=== PATIENT | male | born 1955 | race Caucasian/White ===

== ENCOUNTER 2017-06-30 22:42 | Inpatient (IN) | payer MEDICARE, OTHER ==
[2017-06-30 22:42] VITALS: BMI 24.3
[2017-06-30] MEDS ORDERED: Sodium Chloride 0.9% 1,000 ML IV ONE ×2 (23:18→23:44)
[2017-06-30 23:30] LABS: BASO # 0.1 K/uL (0.0-0.2); BASO % 0.8 % (0.0-2.0); EOS # 0.2 K/uL (0.0-0.7); EOS % 1.8 % (0.0-4.0); HEMATOCRIT 39.4 % (35.0-51.0); LYMPH # 1.4 K/uL (1.0-4.3); LYMPH % 15.9 % (20.0-40.0); MEAN CELL VOLUME 91.3 fL (80.0-94.0); MEAN CORPUSCULAR HGB CONC 35.1 g/dL (33.0-37.0); MEAN PLATELET VOLUME 7.5 fL (7.2-11.7); MONO # 0.6 K/uL (0.0-0.8); MONO % 6.3 % (0.0-10.0); NRBC % 0.1 % (0.0-2.0); RED CELL DISTRIBUTION WIDTH 13.2 % (11.5-14.5); WHITE BLOOD COUNT 8.8 K/uL (4.8-10.8)
--- NOTE | 2017-06-30 23:30 | C.PDOC ---
History Of Present Illness patient presents with abdominal pain worsening since monday. No f/c/n/v. Dull throbbing pain. has been taking lots of motrin for his leg pain. Time Seen by Provider: 06/30/17 23:17 Chief Complaint (Nursing): Abdominal Pain History Per: Patient History/Exam Limitations: no limitations Onset/Duration Of Symptoms: Days Current Symptoms Are (Timing): Still Present Context: Other Severity: Moderate Pain Scale Rating Of: 4 Location Of Pain/Discomfort: Diffuse Radiation Of Pain To:: None Quality Of Discomfort: Dull, Aching Associated Symptoms: denies: Fever, Chills, Nausea, Vomiting Exacerbating Factors: None Alleviating Factors: None Last Bowel Movement: Today Recent travel outside of the [place]: No Additional History Per: Family Past Medical History Reviewed: Historical Data, Nursing Documentation, Vital Signs Vital Signs: Last Vital Signs Temp 98.1 F 06/30/17 22:51 Pulse 68 07/01/17 01:56 Resp 20 07/01/17 01:56 BP 138/62 07/01/17 01:56 Pulse Ox 99 07/01/17 02:32 - Medical History PMH: Gastritis, HTN, Hyperlipidemia Surgical History: CABG Denies: Pacemaker Family History: States: No Known Family Hx - Social History Hx Alcohol Use: No Hx Substance Use: No - Immunization History Hx Tetanus Toxoid Vaccination: No Hx Influenza Vaccination: No Hx Pneumococcal Vaccination: No Review Of Systems Constitutional: Negative for: Fever, Chills Eyes: Negative for: Vision Change ENT: Negative for: Throat Pain Cardiovascular: Negative for: Chest Pain Respiratory: Negative for: Shortness of Breath Gastrointestinal: Positive for: Abdominal Pain. Negative for: Nausea, Vomiting Genitourinary: Negative for: Dysuria Musculoskeletal: Negative for: Back Pain Skin: Negative for: Rash Neurological: Negative for: Weakness Psych: Negative for: Anxiety Physical Exam - Physical Exam Appears: Non-toxic Skin: Warm, Dry Head: Normacephalic Eye(s): bilateral: Normal Inspection Oral Mucosa: Moist Neck: Supple Chest: Symmetrical Cardiovascular: Rhythm Regular Respiratory: No Rales, No Rhonchi, No Wheezing Gastrointestinal/Abdominal: Soft, Tenderness (diffuse), Organomegaly (liver 7 cm bcm), Distention, No Guarding, No Rebound Back: No CVA Tenderness Extremity: Normal ROM Extremity: Bilateral: Atraumatic, Normal Color And Temperature, Normal ROM Pulses: Left Dorsalis Pedis: Normal, Right Dorsalis Pedis: Normal Neurological/Psych: Oriented x3, Normal Speech, Normal Cognition Gait: Steady ED Course And Treatment - Laboratory Results Result Diagrams: 06/30/17 23:26 06/30/17 23:26 O2 Sat by Pulse Oximetry: 99 Pulse Ox Interpretation: Normal Disposition Discussed With Dr.: Ko Mccartney Comment: accepted the pt on his service and took over the care at 2:30 AM Doctor Will See Patient In The: Hospital Counseled Patient/Family Regarding: Studies Performed, Diagnosis - Disposition Disposition: HOSPITALIZED Disposition Time: 23:29 Condition: GUARDED Forms: [employer] (Upper Sorbian) - Clinical Impression Clinical Impression: Abdominal pain, Hyponatremia, Metastatic cancer to liver, Hepatomegaly Decision To Admit - Pt Status Changed To: Hospital Disposition Of: Inpatient - Admit Certification Admit to Inpatient:: After my assessment, the patient will require hospitalization for at least two midnights. This is because of the severity of symptoms shown, intensity of services needed, and/or the medical risk in this patient being treated as an outpatient. - InPatient: Physician Admission Certification:: After my assessment, the patient will require hospitalization for at least two midnights. This is because of the severity of symptoms shown, intensity of services needed, and/or the medical risk in this patient being treated as an outpatient. - . Bed Request Type: Regular Admitting Physician: Ko Mccartney Patient Diagnosis: Abdominal pain, Hyponatremia, Metastatic cancer to liver, Hepatomegaly
[2017-06-30 23:33] LABS: RBC URINE 11 /hpf (0-3); URINE BACTERIA RARE (<OCC); URINE BILIRUBIN NEGATIVE (NEGATIVE); URINE BLOOD 1+ (NEGATIVE); URINE COLOR Yellow (YELLOW); URINE GLUCOSE (UA) NORMAL (Normal); URINE KETONE NEGATIVE (NEGATIVE); URINE LEUKOCYTE ESTERASE NEG Leu/uL (Negative); URINE PROTEIN NEGATIVE (NEGATIVE); URINE UROBILINOGEN NORMAL mg/dL (0.2-1.0); WBC URINE 1 /hpf (0-5)
[2017-06-30] MEDS ORDERED: Sodium Chloride 0.9% 1,000 ML ONE (23:34)
[2017-06-30 23:38] LABS: CHLORIDE 84 mmol/L (98-107); POTASSIUM 4.8 mmol/L (3.6-5.2)
[2017-06-30 23:40] LABS: BILIRUBIN,TOTAL 1.2 mg/dL (0.2-1.3); CARBON DIOXIDE 21 mmol/L (22-30); GFR AFRICAN-AMERICAN > 60
[2017-06-30 23:41] LABS: ALB/GLOB RATIO 1.3 (1.0-2.1); ALKALINE PHOSPHATASE 447 U/L (38-126); ALT/SGPT 99 U/L (21-72); AST/SGOT 156 U/L (17-59); BLOOD UREA NITROGEN 11 mg/dL (9-20); CALCIUM 9.3 mg/dl (8.6-10.4); GLUCOSE,RANDOM 96 mg/dL (75-110); TOTAL PROTEIN 7.7 g/dL (6.3-8.3)
[2017-06-30 23:43] LABS: INR 1.1; SODIUM 118 mmol/L (132-148)
[2017-07-01] MEDS ORDERED: Iodixanol 320 MG/ML 100 ML BOTTLE IV ONE (01:15)
--- NOTE | 2017-07-01 02:11 | CT ---
EXAM: CT Abdomen and Pelvis With Intravenous Contrast CLINICAL HISTORY: 62 years old, male; Pain; Abdominal pain; Prior surgery; Surgery type: Cabg; Additional info: Abd pain, elevated lipase TECHNIQUE: Axial computed tomography images of the abdomen and pelvis with intravenous contrast. All CT scans at this facility use one or more dose reduction techniques, viz.: automated exposure control; ma/kV adjustment per patient size (including targeted exams where dose is matched to indication; i.e. head); or iterative reconstruction technique. Coronal and sagittal reformatted images were created and reviewed. CONTRAST: 100 mL of administered intravenously. COMPARISON: No relevant prior studies available. FINDINGS: Limitations: Motion artifact - mild. Lower thorax: Borderline cardiomegaly. CABG. Few subcentimeter pulmonary nodules. Dependent atelectasis. Trace bilateral pleural effusions. ABDOMEN: Liver: Innumerable hypodense lesions, indeterminate by CT criteria. Gallbladder and bile ducts: No calcified stones. No ductal dilation. Pancreas: At least two hypodense lesions within tail. No ductal dilation. Spleen: No splenomegaly. Adrenals: No mass. Kidneys and ureters: Small indeterminate exophytic hyperdense/enhancing LEFT renal lesion.versus adjacent splenule. Few too small to characterize lesions within kidneys. No hydronephrosis. Stomach and bowel: No definite mural thickening. No obstruction. Appendix: Normal caliber. No inflammation. PELVIS: Bladder: Unremarkable. Reproductive: Mildly enlarged prostate. ABDOMEN and PELVIS: Intraperitoneal space: Trace free fluid within pelvis. No free air. Bones/joints: Multiple lytic lesions within visualized bones. Degenerative changes of spine. Soft tissues: Tiny LEFT inguinal hernia containing fat. Vasculature: Mild atherosclerotic disease. No aneurysm. Lymph nodes: No pathologically enlarged lymph nodes. IMPRESSION: 1. Findings compatible with hepatic, pancreatic, osseous metastases. 2. Possible kidney lesion, indeterminate. Primary malignancy/metastasis not excluded. 3. Pulmonary nodules, indeterminate. Metastases not excluded. 4. Incidental/non-acute findings are described above.
[2017-07-01] MEDS ORDERED: Sodium Chloride 0.9% 1,000 ML IV ONE ×3 (02:32→12:19)
[2017-07-01] MEDS ORDERED: Sodium Chloride 0.9% 1,000 ML ONE (02:38)
[2017-07-01 11:23] LABS: BASO # 0.1 K/uL (0.0-0.2); BASO % 1.1 % (0.0-2.0); EOS # 0.2 K/uL (0.0-0.7); EOS % 2.2 % (0.0-4.0); HEMATOCRIT 37.3 % (35.0-51.0); LYMPH # 1.3 K/uL (1.0-4.3); LYMPH % 16.7 % (20.0-40.0); MEAN CELL VOLUME 92.9 fL (80.0-94.0); MEAN CORPUSCULAR HEMOGLOBIN 31.7 pg (27.0-31.0); MEAN CORPUSCULAR HGB CONC 34.2 g/dL (33.0-37.0); MEAN PLATELET VOLUME 7.7 fL (7.2-11.7); MONO # 0.5 K/uL (0.0-0.8); MONO % 6.2 % (0.0-10.0); NRBC % 0.1 % (0.0-2.0); RED CELL DISTRIBUTION WIDTH 13.1 % (11.5-14.5); WHITE BLOOD COUNT 7.7 K/uL (4.8-10.8)
[2017-07-01 11:35] LABS: CHLORIDE 88 mmol/L (98-107); POTASSIUM 4.8 mmol/L (3.6-5.2)
[2017-07-01 11:37] LABS: BILIRUBIN,TOTAL 1.3 mg/dL (0.2-1.3); GFR AFRICAN-AMERICAN > 60
[2017-07-01 11:38] LABS: ALB/GLOB RATIO 1.2 (1.0-2.1); ALKALINE PHOSPHATASE 351 U/L (38-126); ALT/SGPT 82 U/L (21-72); AST/SGOT 121 U/L (17-59); BLOOD UREA NITROGEN 13 mg/dL (9-20); CARBON DIOXIDE 19 mmol/L (22-30); GLUCOSE,RANDOM 77 mg/dL (75-110); TOTAL PROTEIN 6.8 g/dL (6.3-8.3)
[2017-07-01 11:39] LABS: CALCIUM 8.7 mg/dl (8.6-10.4)
[2017-07-01 11:46] LABS: SODIUM 118 mmol/L (132-148)
--- NOTE | 2017-07-01 12:09 | CP.PCM.CON ---
<Radha Mccartney - Last Filed: 07/01/17 11:55> History of Present Illness - History of Present Illness History of Present Illness: PGY4 Initial GI Consult Giovanny Sim is a 62M w/ hx of GERD, HTN, HL,and CAD s/p CABG who presents with RUQ pain. Pt was only faroese speaking and information was obtained via his daughter who was bedside. His daughter states that the pt does not live with her and she hadn't seen her father in quite some time. She noticed that he had lost significant weight over the last few weeks to months. She notes that he had been complaining of RUQ pain and RLE pain for the past few weeks. She states that her father recalled that the pain started gradually and worsened over time. It was initially intermittent and became persisitant over the last few days. She and her sister then brought him to the ER for further eval. She states that prior to this visit, he was in his normal health. He had a colonoscopy 2 years ago and according to her there were no significant findings. She states that he does have a prior hx of heavy ETOH use but quit 5- 10 years ago. Denies any BRBPR, hematemesis, coffee-ground emesis, or melena. PMH: Gastritis, HTN, Hyperlipidemia Surgical History: CABG Denies: Pacemaker Family History: States: No Known Family Hx of colon ca; brother of cirrhosis complications Social Hx: + ETOH use in the past (heavy) but according to the daughter he quite 5 years prior, + smoking, denies any illicit drug ise Endoscopy hx: Colonscopy 2 years and normal according to daughter ROS: 12-point ROS conducted, neg other than the above Past Patient History - Infectious Disease Hx of Infectious Diseases: None - Past Medical History & Family History Past Medical History?: Yes - Past Social History Smoking Status: Light Smoker < 10 Cigarettes Daily - CARDIAC Hx Cardiac Disorders: Yes Hx Hypertension: Yes Hx Pacemaker: No Other/Comment: Hyperlipidemia - PULMONARY Hx Respiratory Disorders: No - NEUROLOGICAL Hx Neurological Disorder: No Hx Paralysis: No - HEENT Hx HEENT Problems: No - RENAL Hx Chronic Kidney Disease: No - ENDOCRINE/METABOLIC Hx Endocrine Disorders: No - HEMATOLOGICAL/ONCOLOGICAL Hx Blood Disorders: No Hx Blood Transfusions: No - INTEGUMENTARY Hx Dermatological Problems: No - MUSCULOSKELETAL/RHEUMATOLOGICAL Hx Falls: No - GASTROINTESTINAL Hx Gastrointestinal Disorders: Yes Hx Gastritis: Yes - GENITOURINARY/GYNECOLOGICAL Hx Genitourinary Disorders: No - PSYCHIATRIC Hx Substance Use: No - SURGICAL HISTORY Hx Surgeries: Yes Hx Coronary Artery Bypass Graft: Yes - ANESTHESIA Hx Anesthesia: Yes Hx Anesthesia Reactions: No Hx Malignant Hyperthermia: No Has any member of the family had a problem w/ anesthesia?: No Meds Allergies/Adverse Reactions: Allergies Allergy/AdvReac Type Severity Reaction Status Date / Time No Known Allergies Allergy Verified 06/30/17 22:50 - Medications Medications: Current Medications Aspirin (Ecotrin) 81 mg PO DAILY [facility] Last Admin: 07/01/17 10:43 Dose: 81 mg Clopidogrel Bisulfate (Plavix) 75 mg PO DAILY [facility] Last Admin: 07/01/17 10:43 Dose: 75 mg Famotidine (Pepcid) 20 mg PO DAILY [facility] Last Admin: 07/01/17 10:43 Dose: 20 mg Gemfibrozil (Lopid) 600 mg PO BID [facility] Last Admin: 07/01/17 10:43 Dose: 600 mg Heparin Sodium (Porcine) (Heparin) 5,000 units SC Q8 [facility] Hydromorphone HCl (Dilaudid) 1 mg IVP Q4H PRN PRN Reason: Pain, severe (8-10) Last Admin: 07/01/17 11:44 Dose: 1 mg Lisinopril (Zestril) 2.5 mg PO DAILY [facility] Last Admin: 07/01/17 10:43 Dose: 2.5 mg Metoprolol Tartrate (Lopressor) 25 mg PO BID [facility] Last Admin: 07/01/17 10:43 Dose: 25 mg Pneumococcal Polyvalent Vaccine (Pneumovax 23 Vaccine) 0.5 ml IM .ONCE ONE Stop: 07/03/17 10:01 Rosuvastatin Calcium (Crestor) 10 mg PO [facility] Physical Exam - Constitutional Appears: Well, No Acute Distress - Head Exam Head Exam: ATRAUMATIC, NORMOCEPHALIC - Eye Exam Eye Exam: Normal appearance - ENT Exam ENT Exam: Mucous Membranes Moist - Respiratory Exam Respiratory Exam: Clear to Auscultation Bilateral, NORMAL BREATHING PATTERN. absent: Prolonged Expiratory Phase, Rales, Rhonchi, Wheezes, Respiratory Distress - GI/Abdominal Exam GI & Abdominal Exam: Normal Bowel Sounds, Soft, Tenderness (RUQ). absent: Mass , Organomegaly, Rebound, Rigid - Extremities Exam Extremities exam: Negative for: joint swelling, pedal edema - Neurological Exam Neurological exam: Alert, Oriented x3 - Psychiatric Exam Psychiatric exam: Normal Affect, Normal Mood - Skin Skin Exam: Dry, Intact, Normal Color, Warm Results - Vital Signs Recent Vital Signs: Last Vital Signs Temp 98.7 F 07/01/17 03:47 Pulse 87 07/01/17 03:47 Resp 18 07/01/17 03:59 BP 128/67 07/01/17 10:43 Pulse Ox 99 07/01/17 03:47 - Labs Result Diagrams: 07/01/17 11:13 07/01/17 11:22 Labs: Laboratory Results - last 24 hr 06/30/17 06/30/17 06/30/17 23:26 23:26 23:26 WBC 8.8 RBC 4.32 L Hgb 13.8 Hct 39.4 MCV 91.3 MCH 32.0 H MCHC 35.1 RDW 13.2 Plt Count 291 MPV 7.5 Neut % (Auto) 75.2 H Lymph % (Auto) 15.9 L [place] % (Auto) 6.3 Eos % (Auto) 1.8 Baso % (Auto) 0.8 Neut # 6.6 Lymph # 1.4 [place] # 0.6 Eos # 0.2 Baso # 0.1 PT 12.8 H INR 1.1 APTT 30 Sodium Potassium Chloride Carbon Dioxide Anion Gap BUN Creatinine Est GFR ( Amer) Est GFR (Non-Af Amer) Random Glucose Calcium Total Bilirubin AST ALT Alkaline Phosphatase Total Protein Albumin Globulin Albumin/Globulin Ratio Lipase Urine Color Yellow Urine Clarity Clear Urine pH 8.0 Ur Specific [place] 1.013 Urine Protein Negative Urine Glucose (UA) Normal Urine Ketones Negative Urine Blood 1+ H Urine Nitrate Negative Urine Bilirubin Negative Urine Urobilinogen Normal Ur Leukocyte Esterase Neg Urine WBC (Auto) 1 Urine RBC (Auto) 11 H Urine Bacteria Rare 06/30/17 07/01/17 07/01/17 23:26 11:13 11:22 WBC 7.7 RBC 4.02 L Hgb 12.8 Hct 37.3 MCV 92.9 MCH 31.7 H MCHC 34.2 RDW 13.1 Plt Count 248 MPV 7.7 Neut % (Auto) 73.8 Lymph % (Auto) 16.7 L [place] % (Auto) 6.2 Eos % (Auto) 2.2 Baso % (Auto) 1.1 Neut # 5.7 Lymph # 1.3 [place] # 0.5 Eos # 0.2 Baso # 0.1 PT INR APTT Sodium 118 L* 118 L* Potassium 4.8 4.8 Chloride 84 L 88 L Carbon Dioxide 21 L 19 L Anion Gap 18 16 BUN 11 13 Creatinine 0.6 L 0.6 L Est GFR ( Amer) > 60 > 60 Est GFR (Non-Af Amer) > 60 > 60 Random Glucose 96 77 Calcium 9.3 8.7 Total Bilirubin 1.2 1.3 AST 156 H 121 H D ALT 99 H 82 H Alkaline Phosphatase 447 H 351 H D Total Protein 7.7 6.8 Albumin 4.4 3.7 Globulin 3.4 3.0 Albumin/Globulin Ratio 1.3 1.2 Lipase 1250 H Urine Color Urine Clarity Urine pH Ur Specific [place] Urine Protein Urine Glucose (UA) Urine Ketones Urine Blood Urine Nitrate Urine Bilirubin Urine Urobilinogen Ur Leukocyte Esterase Urine WBC (Auto) Urine RBC (Auto) Urine Bacteria Assessment & Plan - Assessment and Plan (Free Text) Assessment: Giovanny Sim is a 62M with hx of CAD, HTN, HL, and GERD who presents to the ED with complaints of RUQ pain. CT abd revealed multiple hepatic lesions, pancreatic lesions, bone mets, lung lesions, etiology is probably malignant; cannot differentiate between metastatic (more likely) from unknown source ( colon vs pancreas vs lung) vs primary Multiple liver lesions/masses etiology probably malignancy, DDx mets from unknown primary ca vs primary liver ca Pancreatic lesions/masses, etiology probably malignancy Wide spread Mets including bone and lung GERD hx of ETOH use Plan: -CT abd reviewed by Dr. Lamb, confirmed multiple mets throughout the liver and pancreas -recommend Hem/onc consult -Recommend IR guided biospy for pathology -will do Hep panel, autoimmune w/u -diet as tolerate -pain management as per primary team -poor prognosis -colonscopy was done 2 years ago, will need report to confirm results -DVT px -GI px D/W Dr. Lamb <Zane Lamb - Last Filed: 07/01/17 12:34> Meds - Medications Medications: Current Medications Aspirin (Ecotrin) 81 mg PO DAILY [facility] Last Admin: 07/01/17 10:43 Dose: 81 mg Clopidogrel Bisulfate (Plavix) 75 mg PO DAILY [facility] Last Admin: 07/01/17 10:43 Dose: 75 mg Famotidine (Pepcid) 20 mg PO DAILY [facility] Last Admin: 07/01/17 10:43 Dose: 20 mg Gemfibrozil (Lopid) 600 mg PO BID [facility] Last Admin: 07/01/17 10:43 Dose: 600 mg Heparin Sodium (Porcine) (Heparin) 5,000 units SC Q8 [facility] Hydromorphone HCl (Dilaudid) 1 mg IVP Q4H PRN PRN Reason: Pain, severe (8-10) Last Admin: 07/01/17 11:44 Dose: 1 mg Sodium Chloride (Sodium Chloride 0.9%) 1,000 mls @ 1,000 mls/hr IV .Q1H ONE Stop: 07/01/17 13:17 Sodium Chloride (Sodium Chloride 0.9%) 1,000 mls @ 1,000 mls/hr IV .Q1H ONE Stop: 07/01/17 13:18 Lisinopril (Zestril) 2.5 mg PO DAILY [facility] Last Admin: 07/01/17 10:43 Dose: 2.5 mg Metoprolol Tartrate (Lopressor) 25 mg PO BID [facility] Last Admin: 07/01/17 10:43 Dose: 25 mg Pneumococcal Polyvalent Vaccine (Pneumovax 23 Vaccine) 0.5 ml IM .ONCE ONE Stop: 07/03/17 10:01 Rosuvastatin Calcium (Crestor) 10 mg PO [facility] Results - Vital Signs Recent Vital Signs: Last Vital Signs Temp 98.7 F 07/01/17 03:47 Pulse 87 07/01/17 03:47 Resp 18 07/01/17 03:59 BP 128/67 07/01/17 10:43 Pulse Ox 99 07/01/17 03:47 - Labs Result Diagrams: 07/01/17 11:13 07/01/17 11:22 Labs: Laboratory Results - last 24 hr 06/30/17 06/30/17 06/30/17 23:26 23:26 23:26 WBC 8.8 RBC 4.32 L Hgb 13.8 Hct 39.4 MCV 91.3 MCH 32.0 H MCHC 35.1 RDW 13.2 Plt Count 291 MPV 7.5 Neut % (Auto) 75.2 H Lymph % (Auto) 15.9 L [place] % (Auto) 6.3 Eos % (Auto) 1.8 Baso % (Auto) 0.8 Neut # 6.6 Lymph # 1.4 [place] # 0.6 Eos # 0.2 Baso # 0.1 PT 12.8 H INR 1.1 APTT 30 Sodium Potassium Chloride Carbon Dioxide Anion Gap BUN Creatinine Est GFR ( Amer) Est GFR (Non-Af Amer) Random Glucose Calcium Total Bilirubin AST ALT Alkaline Phosphatase Total Protein Albumin Globulin Albumin/Globulin Ratio Lipase Urine Color Yellow Urine Clarity Clear Urine pH 8.0 Ur Specific [place] 1.013 Urine Protein Negative Urine Glucose (UA) Normal Urine Ketones Negative Urine Blood 1+ H Urine Nitrate Negative Urine Bilirubin Negative Urine Urobilinogen Normal Ur Leukocyte Esterase Neg Urine WBC (Auto) 1 Urine RBC (Auto) 11 H Urine Bacteria Rare 06/30/17 07/01/17 07/01/17 23:26 11:13 11:22 WBC 7.7 RBC 4.02 L Hgb 12.8 Hct 37.3 MCV 92.9 MCH 31.7 H MCHC 34.2 RDW 13.1 Plt Count 248 MPV 7.7 Neut % (Auto) 73.8 Lymph % (Auto) 16.7 L [place] % (Auto) 6.2 Eos % (Auto) 2.2 Baso % (Auto) 1.1 Neut # 5.7 Lymph # 1.3 [place] # 0.5 Eos # 0.2 Baso # 0.1 PT INR APTT Sodium 118 L* 118 L* Potassium 4.8 4.8 Chloride 84 L 88 L Carbon Dioxide 21 L 19 L Anion Gap 18 16 BUN 11 13 Creatinine 0.6 L 0.6 L Est GFR ( Amer) > 60 > 60 Est GFR (Non-Af Amer) > 60 > 60 Random Glucose 96 77 Calcium 9.3 8.7 Total Bilirubin 1.2 1.3 AST 156 H 121 H D ALT 99 H 82 H Alkaline Phosphatase 447 H 351 H D Total Protein 7.7 6.8 Albumin 4.4 3.7 Globulin 3.4 3.0 Albumin/Globulin Ratio 1.3 1.2 Lipase 1250 H Urine Color Urine Clarity Urine pH Ur Specific [place] Urine Protein Urine Glucose (UA) Urine Ketones Urine Blood Urine Nitrate Urine Bilirubin Urine Urobilinogen Ur Leukocyte Esterase Urine WBC (Auto) Urine RBC (Auto) Urine Bacteria Attending/Attestation - Attestation I have personally seen and examined this patient.: Yes I have fully participated in the care of the patient.: Yes I have reviewed all pertinent clinical information: Yes Notes (Text): 07/01/17 12:32 62 year old male with h/o CAD s/p CABG who presents with abdominal pain found to have metastatic cancer unknown primary. 1. Liver metastases 2. Pancreatic mass Plan: -metastatic cancer ,unknown primary -possible pancreatic -recommend liver biopsy of multiple lesions -supportive care with pain control -treatment of hyponatremia per primary or renal -workup for chronic liver disease as above -check tumor markers cea, ca 19-9, afp -oncology consult
[2017-07-01] MEDS: Simethicone 80 mg Chewtab PO SCH ×2 (14:04→17:32)
[2017-07-01 15:17] LABS: CA 19-9 481 U/mL (0-37)
--- NOTE | 2017-07-01 18:55 | CP.PCM.HP ---
Past Patient History - Infectious Disease Hx of Infectious Diseases: None - Past Medical History & Family History Past Medical History?: Yes - Past Social History Smoking Status: Light Smoker < 10 Cigarettes Daily - CARDIAC Hx Cardiac Disorders: Yes Hx Hypertension: Yes - PULMONARY Hx Respiratory Disorders: No - NEUROLOGICAL Hx Neurological Disorder: No Hx Paralysis: No - HEENT Hx HEENT Problems: No - RENAL Hx Chronic Kidney Disease: No - ENDOCRINE/METABOLIC Hx Endocrine Disorders: No - HEMATOLOGICAL/ONCOLOGICAL Hx Blood Disorders: No Hx Blood Transfusions: No - INTEGUMENTARY Hx Dermatological Problems: No - MUSCULOSKELETAL/RHEUMATOLOGICAL Hx Arthritis: Yes (BACK/ HIP/KNEE) - GASTROINTESTINAL Hx Gastrointestinal Disorders: Yes Hx Gastritis: Yes - GENITOURINARY/GYNECOLOGICAL Hx Genitourinary Disorders: No - PSYCHIATRIC Hx Substance Use: No - SURGICAL HISTORY Hx Surgeries: Yes Hx Coronary Artery Bypass Graft: Yes - ANESTHESIA Hx Anesthesia: Yes Hx Anesthesia Reactions: No Hx Malignant Hyperthermia: No Has any member of the family had a problem w/ anesthesia?: No Meds Allergies/Adverse Reactions: Allergies Allergy/AdvReac Type Severity Reaction Status Date / Time No Known Allergies Allergy Verified 06/30/17 22:50 Physical Exam - Constitutional Appears: Well - Head Exam Head Exam: ATRAUMATIC, NORMAL INSPECTION, NORMOCEPHALIC - Eye Exam Eye Exam: EOMI, Normal appearance, PERRL Pupil Exam: NORMAL ACCOMODATION, PERRL - ENT Exam ENT Exam: Mucous Membranes Moist, Normal Exam - Neck Exam Neck exam: Positive for: Normal Inspection - Respiratory Exam Respiratory Exam: Decreased Breath Sounds - Cardiovascular Exam Cardiovascular Exam: REGULAR RHYTHM, +S1, +S2 - GI/Abdominal Exam GI & Abdominal Exam: Diminished Bowel Sounds, Soft - Rectal Exam Rectal Exam: Deferred Results - Vital Signs Recent Vital Signs: Last Vital Signs Temp 98.7 F 07/01/17 03:47 Pulse 87 07/01/17 03:47 Resp 18 07/01/17 03:59 BP 108/60 07/01/17 17:32 Pulse Ox 99 07/01/17 03:47 - Labs Result Diagrams: 07/01/17 11:13 07/01/17 11:22 Labs: Laboratory Results - last 24 hr 06/30/17 06/30/17 06/30/17 23:26 23:26 23:26 WBC 8.8 RBC 4.32 L Hgb 13.8 Hct 39.4 MCV 91.3 MCH 32.0 H MCHC 35.1 RDW 13.2 Plt Count 291 MPV 7.5 Neut % (Auto) 75.2 H Lymph % (Auto) 15.9 L [place] % (Auto) 6.3 Eos % (Auto) 1.8 Baso % (Auto) 0.8 Neut # 6.6 Lymph # 1.4 [place] # 0.6 Eos # 0.2 Baso # 0.1 PT 12.8 H INR 1.1 APTT 30 Sodium Potassium Chloride Carbon Dioxide Anion Gap BUN Creatinine Est GFR ( Amer) Est GFR (Non-Af Amer) Random Glucose Calcium Total Bilirubin AST ALT Alkaline Phosphatase Total Protein Albumin Globulin Albumin/Globulin Ratio Lipase Alpha Fetoprotein Carcinoembryonic Ag CA 19-9 Antigen Urine Color Yellow Urine Clarity Clear Urine pH 8.0 Ur Specific [place] 1.013 Urine Protein Negative Urine Glucose (UA) Normal Urine Ketones Negative Urine Blood 1+ H Urine Nitrate Negative Urine Bilirubin Negative Urine Urobilinogen Normal Ur Leukocyte Esterase Neg Urine WBC (Auto) 1 Urine RBC (Auto) 11 H Urine Bacteria Rare IgG Hepatitis A IgM Ab Hep Bs Antigen Hep Bs Antibody Hep B Core IgM Ab Hepatitis C Antibody 06/30/17 07/01/17 07/01/17 23:26 11:13 11:22 WBC 7.7 RBC 4.02 L Hgb 12.8 Hct 37.3 MCV 92.9 MCH 31.7 H MCHC 34.2 RDW 13.1 Plt Count 248 MPV 7.7 Neut % (Auto) 73.8 Lymph % (Auto) 16.7 L [place] % (Auto) 6.2 Eos % (Auto) 2.2 Baso % (Auto) 1.1 Neut # 5.7 Lymph # 1.3 [place] # 0.5 Eos # 0.2 Baso # 0.1 PT INR APTT Sodium 118 L* 118 L* Potassium 4.8 4.8 Chloride 84 L 88 L Carbon Dioxide 21 L 19 L Anion Gap 18 16 BUN 11 13 Creatinine 0.6 L 0.6 L Est GFR ( Amer) > 60 > 60 Est GFR (Non-Af Amer) > 60 > 60 Random Glucose 96 77 Calcium 9.3 8.7 Total Bilirubin 1.2 1.3 AST 156 H 121 H D ALT 99 H 82 H Alkaline Phosphatase 447 H 351 H D Total Protein 7.7 6.8 Albumin 4.4 3.7 Globulin 3.4 3.0 Albumin/Globulin Ratio 1.3 1.2 Lipase 1250 H Alpha Fetoprotein Carcinoembryonic Ag CA 19-9 Antigen Urine Color Urine Clarity Urine pH Ur Specific [place] Urine Protein Urine Glucose (UA) Urine Ketones Urine Blood Urine Nitrate Urine Bilirubin Urine Urobilinogen Ur Leukocyte Esterase Urine WBC (Auto) Urine RBC (Auto) Urine Bacteria IgG Hepatitis A IgM Ab Hep Bs Antigen Hep Bs Antibody Hep B Core IgM Ab Hepatitis C Antibody 07/01/17 07/01/17 07/01/17 14:09 14:09 14:09 WBC RBC Hgb Hct MCV MCH MCHC RDW Plt Count MPV Neut % (Auto) Lymph % (Auto) [place] % (Auto) Eos % (Auto) Baso % (Auto) Neut # Lymph # [place] # Eos # Baso # PT INR APTT Sodium Potassium Chloride Carbon Dioxide Anion Gap BUN Creatinine Est GFR ( Amer) Est GFR (Non-Af Amer) Random Glucose Calcium Total Bilirubin AST ALT Alkaline Phosphatase Total Protein Albumin Globulin Albumin/Globulin Ratio Lipase Alpha Fetoprotein Carcinoembryonic Ag 557.0 H CA 19-9 Antigen 481 H Urine Color Urine Clarity Urine pH Ur Specific [place] Urine Protein Urine Glucose (UA) Urine Ketones Urine Blood Urine Nitrate Urine Bilirubin Urine Urobilinogen Ur Leukocyte Esterase Urine WBC (Auto) Urine RBC (Auto) Urine Bacteria IgG Hepatitis A IgM Ab Negative Hep Bs Antigen Negative Hep Bs Antibody Negative Hep B Core IgM Ab Negative Negative Hepatitis C Antibody Negative 07/01/17 07/01/17 14:09 14:09 WBC RBC Hgb Hct MCV MCH MCHC RDW Plt Count MPV Neut % (Auto) Lymph % (Auto) [place] % (Auto) Eos % (Auto) Baso % (Auto) Neut # Lymph # [place] # Eos # Baso # PT INR APTT Sodium Potassium Chloride Carbon Dioxide Anion Gap BUN Creatinine Est GFR ( Amer) Est GFR (Non-Af Amer) Random Glucose Calcium Total Bilirubin AST ALT Alkaline Phosphatase Total Protein Albumin Globulin Albumin/Globulin Ratio Lipase Alpha Fetoprotein 3.1 Carcinoembryonic Ag CA 19-9 Antigen Urine Color Urine Clarity Urine pH Ur Specific [place] Urine Protein Urine Glucose (UA) Urine Ketones Urine Blood Urine Nitrate Urine Bilirubin Urine Urobilinogen Ur Leukocyte Esterase Urine WBC (Auto) Urine RBC (Auto) Urine Bacteria IgG 786.8 Hepatitis A IgM Ab Hep Bs Antigen Hep Bs Antibody Hep B Core IgM Ab Hepatitis C Antibody
[2017-07-01 20:30] LABS: CHLORIDE 88 mmol/L (98-107); POTASSIUM 4.5 mmol/L (3.6-5.2)
[2017-07-01 20:32] LABS: BILIRUBIN,TOTAL 1.4 mg/dL (0.2-1.3); CARBON DIOXIDE 18 mmol/L (22-30); GFR AFRICAN-AMERICAN > 60
[2017-07-01 20:33] LABS: ALKALINE PHOSPHATASE 386 U/L (38-126); ALT/SGPT 87 U/L (21-72); AST/SGOT 120 U/L (17-59); BLOOD UREA NITROGEN 11 mg/dL (9-20); CALCIUM 9.1 mg/dl (8.6-10.4); GLUCOSE,RANDOM 92 mg/dL (75-110); TOTAL PROTEIN 7.5 g/dL (6.3-8.3)
[2017-07-01 20:43] LABS: SODIUM 117 mmol/L (132-148)
[2017-07-01] MEDS: Tolvaptan 15 MG TAB PO SCH (21:35)
--- NOTE | 2017-07-01 22:14 | CP.PCM.CON ---
History of Present Illness - History of Present Illness History of Present Illness: 62 year old male with a history of HTN, GERD, HL, CAD s/p CABG, admitted with abdominal pain, found to have imaging concerning for metastatic malignancy. The patient reports to increasing abdominal pain for about 10 days. He notes the pain has been gradually worsening and leaving him with a diminished appetite. He does admit to weight loss but is unable to quantify. Imaging revealed pancreatic, lung, liver, and bone lesions. Past medical history: HTN, GERD, HL, CAD s/p CABG. Past surgical history: Denies. Family history: Denies hematologic and oncologic problems Social histoy: smokes 2 cigs daily x 50 years, former alcohol abuse. Allergies: NKA Review of systems: All remaining review of systems including HEENT, cardiovascular, respiratory, gastrointestinal, genitourinary, musculoskeletal, dermatologic, neurologic, and psychiatric are negative unless mentioned in the HPI. Past Patient History - Infectious Disease Hx of Infectious Diseases: None - Past Medical History & Family History Past Medical History?: Yes - Past Social History Smoking Status: Light Smoker < 10 Cigarettes Daily - CARDIAC Hx Cardiac Disorders: Yes Hx Hypertension: Yes - PULMONARY Hx Respiratory Disorders: No - NEUROLOGICAL Hx Neurological Disorder: No Hx Paralysis: No - HEENT Hx HEENT Problems: No - RENAL Hx Chronic Kidney Disease: No - ENDOCRINE/METABOLIC Hx Endocrine Disorders: No - HEMATOLOGICAL/ONCOLOGICAL Hx Blood Disorders: No Hx Blood Transfusions: No - INTEGUMENTARY Hx Dermatological Problems: No - MUSCULOSKELETAL/RHEUMATOLOGICAL Hx Arthritis: Yes (BACK/ HIP/KNEE) - GASTROINTESTINAL Hx Gastrointestinal Disorders: Yes Hx Gastritis: Yes - GENITOURINARY/GYNECOLOGICAL Hx Genitourinary Disorders: No - PSYCHIATRIC Hx Substance Use: No - SURGICAL HISTORY Hx Surgeries: Yes Hx Coronary Artery Bypass Graft: Yes - ANESTHESIA Hx Anesthesia: Yes Hx Anesthesia Reactions: No Hx Malignant Hyperthermia: No Has any member of the family had a problem w/ anesthesia?: No Meds Allergies/Adverse Reactions: Allergies Allergy/AdvReac Type Severity Reaction Status Date / Time No Known Allergies Allergy Verified 06/30/17 22:50 - Medications Medications: Current Medications Famotidine (Pepcid) 20 mg PO DAILY [facility] Last Admin: 07/01/17 10:43 Dose: 20 mg Gemfibrozil (Lopid) 600 mg PO BID [facility] Last Admin: 07/01/17 17:32 Dose: 600 mg Heparin Sodium (Porcine) (Heparin) 5,000 units SC Q8 [facility] Last Admin: 07/01/17 21:34 Dose: 5,000 units Hydromorphone HCl (Dilaudid) 1 mg IVP Q4H PRN PRN Reason: Pain, severe (8-10) Last Admin: 07/01/17 19:50 Dose: 1 mg Lisinopril (Zestril) 2.5 mg PO DAILY [facility] Last Admin: 07/01/17 10:43 Dose: 2.5 mg Metoprolol Tartrate (Lopressor) 25 mg PO BID [facility] Last Admin: 07/01/17 17:32 Dose: 25 mg Pneumococcal Polyvalent Vaccine (Pneumovax 23 Vaccine) 0.5 ml IM .ONCE ONE Stop: 07/03/17 10:01 Rosuvastatin Calcium (Crestor) 10 mg PO [facility] Last Admin: 07/01/17 21:34 Dose: 10 mg Simethicone (Mylicon Chew Tab) 80 mg PO TID [facility] Last Admin: 07/01/17 17:32 Dose: 80 mg Tolvaptan (Samsca) 15 mg PO DAILY [facility] Stop: 07/03/17 21:23 Last Admin: 07/01/17 21:35 Dose: 15 mg Physical Exam - Head Exam Head Exam: ATRAUMATIC - Eye Exam Eye Exam: Normal appearance - ENT Exam ENT Exam: Mucous Membranes Dry - Respiratory Exam Respiratory Exam: NORMAL BREATHING PATTERN - Cardiovascular Exam Cardiovascular Exam: +S1, +S2 - GI/Abdominal Exam GI & Abdominal Exam: Normal Bowel Sounds - Extremities Exam Extremities exam: Positive for: normal inspection - Neurological Exam Neurological exam: Oriented x3 - Psychiatric Exam Psychiatric exam: Normal Affect, Normal Mood - Skin Skin Exam: Warm Results - Vital Signs Recent Vital Signs: Last Vital Signs Temp 98.7 F 07/01/17 03:47 Pulse 87 07/01/17 03:47 Resp 18 07/01/17 03:59 BP 108/60 07/01/17 17:32 Pulse Ox 99 07/01/17 03:47 - Labs Result Diagrams: 07/01/17 11:13 07/01/17 20:04 Labs: Laboratory Results - last 24 hr 06/30/17 06/30/17 06/30/17 23:26 23:26 23:26 WBC 8.8 RBC 4.32 L Hgb 13.8 Hct 39.4 MCV 91.3 MCH 32.0 H MCHC 35.1 RDW 13.2 Plt Count 291 MPV 7.5 Neut % (Auto) 75.2 H Lymph % (Auto) 15.9 L [place] % (Auto) 6.3 Eos % (Auto) 1.8 Baso % (Auto) 0.8 Neut # 6.6 Lymph # 1.4 [place] # 0.6 Eos # 0.2 Baso # 0.1 PT 12.8 H INR 1.1 APTT 30 Sodium Potassium Chloride Carbon Dioxide Anion Gap BUN Creatinine Est GFR ( Amer) Est GFR (Non-Af Amer) Random Glucose Calcium Total Bilirubin AST ALT Alkaline Phosphatase Total Protein Albumin Globulin Albumin/Globulin Ratio Lipase Alpha Fetoprotein Carcinoembryonic Ag CA 19-9 Antigen Urine Color Yellow Urine Clarity Clear Urine pH 8.0 Ur Specific [place] 1.013 Urine Protein Negative Urine Glucose (UA) Normal Urine Ketones Negative Urine Blood 1+ H Urine Nitrate Negative Urine Bilirubin Negative Urine Urobilinogen Normal Ur Leukocyte Esterase Neg Urine WBC (Auto) 1 Urine RBC (Auto) 11 H Urine Bacteria Rare IgG Hepatitis A IgM Ab Hep Bs Antigen Hep Bs Antibody Hep B Core IgM Ab Hepatitis C Antibody 06/30/17 07/01/17 07/01/17 23:26 11:13 11:22 WBC 7.7 RBC 4.02 L Hgb 12.8 Hct 37.3 MCV 92.9 MCH 31.7 H MCHC 34.2 RDW 13.1 Plt Count 248 MPV 7.7 Neut % (Auto) 73.8 Lymph % (Auto) 16.7 L [place] % (Auto) 6.2 Eos % (Auto) 2.2 Baso % (Auto) 1.1 Neut # 5.7 Lymph # 1.3 [place] # 0.5 Eos # 0.2 Baso # 0.1 PT INR APTT Sodium 118 L* 118 L* Potassium 4.8 4.8 Chloride 84 L 88 L Carbon Dioxide 21 L 19 L Anion Gap 18 16 BUN 11 13 Creatinine 0.6 L 0.6 L Est GFR ( Amer) > 60 > 60 Est GFR (Non-Af Amer) > 60 > 60 Random Glucose 96 77 Calcium 9.3 8.7 Total Bilirubin 1.2 1.3 AST 156 H 121 H D ALT 99 H 82 H Alkaline Phosphatase 447 H 351 H D Total Protein 7.7 6.8 Albumin 4.4 3.7 Globulin 3.4 3.0 Albumin/Globulin Ratio 1.3 1.2 Lipase 1250 H Alpha Fetoprotein Carcinoembryonic Ag CA 19-9 Antigen Urine Color Urine Clarity Urine pH Ur Specific [place] Urine Protein Urine Glucose (UA) Urine Ketones Urine Blood Urine Nitrate Urine Bilirubin Urine Urobilinogen Ur Leukocyte Esterase Urine WBC (Auto) Urine RBC (Auto) Urine Bacteria IgG Hepatitis A IgM Ab Hep Bs Antigen Hep Bs Antibody Hep B Core IgM Ab Hepatitis C Antibody 07/01/17 07/01/17 07/01/17 14:09 14:09 14:09 WBC RBC Hgb Hct MCV MCH MCHC RDW Plt Count MPV Neut % (Auto) Lymph % (Auto) [place] % (Auto) Eos % (Auto) Baso % (Auto) Neut # Lymph # [place] # Eos # Baso # PT INR APTT Sodium Potassium Chloride Carbon Dioxide Anion Gap BUN Creatinine Est GFR ( Amer) Est GFR (Non-Af Amer) Random Glucose Calcium Total Bilirubin AST ALT Alkaline Phosphatase Total Protein Albumin Globulin Albumin/Globulin Ratio Lipase Alpha Fetoprotein Carcinoembryonic Ag 557.0 H CA 19-9 Antigen 481 H Urine Color Urine Clarity Urine pH Ur Specific [place] Urine Protein Urine Glucose (UA) Urine Ketones Urine Blood Urine Nitrate Urine Bilirubin Urine Urobilinogen Ur Leukocyte Esterase Urine WBC (Auto) Urine RBC (Auto) Urine Bacteria IgG Hepatitis A IgM Ab Negative Hep Bs Antigen Negative Hep Bs Antibody Negative Hep B Core IgM Ab Negative Negative Hepatitis C Antibody Negative 07/01/17 07/01/17 07/01/17 14:09 14:09 20:04 WBC RBC Hgb Hct MCV MCH MCHC RDW Plt Count MPV Neut % (Auto) Lymph % (Auto) [place] % (Auto) Eos % (Auto) Baso % (Auto) Neut # Lymph # [place] # Eos # Baso # PT INR APTT Sodium 117 L* Potassium 4.5 Chloride 88 L Carbon Dioxide 18 L Anion Gap 16 BUN 11 Creatinine 0.6 L Est GFR ( Amer) > 60 Est GFR (Non-Af Amer) > 60 Random Glucose 92 Calcium 9.1 Total Bilirubin 1.4 H AST 120 H ALT 87 H Alkaline Phosphatase 386 H Total Protein 7.5 Albumin 3.8 Globulin 3.7 Albumin/Globulin Ratio 1.0 Lipase Alpha Fetoprotein 3.1 Carcinoembryonic Ag CA 19-9 Antigen Urine Color Urine Clarity Urine pH Ur Specific [place] Urine Protein Urine Glucose (UA) Urine Ketones Urine Blood Urine Nitrate Urine Bilirubin Urine Urobilinogen Ur Leukocyte Esterase Urine WBC (Auto) Urine RBC (Auto) Urine Bacteria IgG 786.8 Hepatitis A IgM Ab Hep Bs Antigen Hep Bs Antibody Hep B Core IgM Ab Hepatitis C Antibody Assessment & Plan (1) Metastatic cancer to liver Assessment and Plan: recommend percutaneous liver lesion biopsy elevated CA 19-9 and CEA noted will add CT chest Status: Acute (2) Anemia Assessment and Plan: will check ferritin, retic count, b12, folate, FOBT to further characterize Thank you for this interesting consult. Status: Acute
[2017-07-01 23:23] VITALS: RESP 20
[2017-07-02 08:28] LABS: BASO # 0.1 K/uL (0.0-0.2); BASO % 0.9 % (0.0-2.0); EOS # 0.1 K/uL (0.0-0.7); EOS % 1.5 % (0.0-4.0); HEMATOCRIT 37.6 % (35.0-51.0); LYMPH % 15.2 % (20.0-40.0); MEAN CELL VOLUME 91.7 fL (80.0-94.0); MEAN CORPUSCULAR HEMOGLOBIN 32.5 pg (27.0-31.0); MEAN CORPUSCULAR HGB CONC 35.5 g/dL (33.0-37.0); MEAN PLATELET VOLUME 7.5 fL (7.2-11.7); MONO # 0.5 K/uL (0.0-0.8); MONO % 7.7 % (0.0-10.0); RED CELL DISTRIBUTION WIDTH 13.4 % (11.5-14.5); WHITE BLOOD COUNT 6.3 K/uL (4.8-10.8)
[2017-07-02 08:39] LABS: CHLORIDE 99 mmol/L (98-107)
[2017-07-02 08:40] LABS: POTASSIUM 4.3 mmol/L (3.6-5.2); SODIUM 131 mmol/L (132-148)
[2017-07-02 08:42] LABS: ALB/GLOB RATIO 1.1 (1.0-2.1); AST/SGOT 119 U/L (17-59); BILIRUBIN,TOTAL 1.4 mg/dL (0.2-1.3); BLOOD UREA NITROGEN 11 mg/dL (9-20); CARBON DIOXIDE 22 mmol/L (22-30); GFR AFRICAN-AMERICAN > 60; TOTAL PROTEIN 7.7 g/dL (6.3-8.3)
[2017-07-02 08:43] LABS: ALKALINE PHOSPHATASE 430 U/L (38-126); ALT/SGPT 78 U/L (21-72); CALCIUM 9.9 mg/dl (8.6-10.4); GLUCOSE,RANDOM 83 mg/dL (75-110)
[2017-07-02] MEDS ORDERED: Iohexol 300 100 ML IJ ONE (09:36)
[2017-07-02 09:43] LABS: FOLATE 12.9 ng/mL
[2017-07-02] MEDS: Simethicone 80 mg Chewtab PO SCH ×3 (10:34→17:27)
[2017-07-02] MEDS: Tolvaptan 15 MG TAB PO SCH (10:34)
--- NOTE | 2017-07-02 11:46 | CT ---
PROCEDURE: CT Chest with contrast HISTORY: malignancy work up. Cough and spitting up blood. CT of the abdomen and pelvis showed liver, pancreatic and osseous metastasis. COMPARISON: None. TECHNIQUE: Contiguous axial images were obtained through the chest with intravenous contrast enhancement. Sagittal and coronal reconstructions were performed. IV contrast: 100 mL Omnipaque 300 Radiation dose (DLP): 267.78 mGy-cm. This CT exam was performed using one or more of the following dose reduction techniques: Automated exposure control, adjustment of the mA and/or kV according to patient size, and/or use of iterative reconstruction technique. FINDINGS: LUNGS: There is heterogeneous infiltrate and small opacity at the medial aspect of the right lung apex and upper lobe of uncertain etiology and may represent pneumonia. The possibility of neoplasm is less likely. There is adjacent 5 millimeter noncalcified nodule at the right lung apex image 19 series 3. Mild emphysematous changes are noted at the upper lobes and lung apices. Partial atelectasis of both lower lobes due to pleural effusion is noted. MEDIASTINUM: Unremarkable thoracic aorta. No aneurysm or dissection. The heart is mildly enlarged. Main pulmonary artery unremarkable. No vascular congestion. No lymphadenopathy. PLEURA: Small to moderate right and small left pleural effusions are seen. BONES: Multiple lytic bony lesions seen in the thoracic spine consistent with osseous metastasis. There are also lytic bony lesion in the sternum also suggestive of metastasis. The patient status post sternotomy UPPER ABDOMEN: Again seen are multiple mass lesion in the liver consistent with liver metastasis. There is also suspicious for mass lesion at the pancreatic body and tail. The spleen is normal in size. OTHER FINDINGS: None. IMPRESSION: Heterogeneous opacity and infiltrate at the medial aspect of the right lung upper lobe/ right apex may represent a pneumonia. The possibility of primary lung neoplasm is less likely. Adjacent 5 millimeter noncalcified nodule seen at the upper lobe may represent metastasis. Small to moderate right and small left pleural effusions. Cardiomegaly. Diffuse osseous metastasis in the thoracic spine and sternum. Mild upper lobes emphysema.
--- NOTE | 2017-07-02 12:06 | CP.PCM.PN ---
Subjective - Date & Time of Evaluation Date of Evaluation: 07/02/17 Time of Evaluation: 12:04 - Subjective Subjective: RFV: Liver metastases S: No acute events. continues to complain of abdominal pain. tolerating diet. family at bedside. Objective - Vital Signs/Intake and Output Vital Signs (last 24 hours): Temp Pulse Resp BP Pulse Ox 98.4 F 77 20 108/57 L 96 07/01/17 23:20 07/01/17 23:20 07/01/17 23:20 07/02/17 10:34 07/01/17 23:20 Intake and Output: 07/02/17 07/02/17 06:59 18:59 Intake Total 310 Balance 310 - Medications Medications: Current Medications Famotidine (Pepcid) 20 mg PO DAILY [facility] Last Admin: 07/02/17 10:40 Dose: 20 mg Gemfibrozil (Lopid) 600 mg PO BID [facility] Last Admin: 07/02/17 10:34 Dose: 600 mg Heparin Sodium (Porcine) (Heparin) 5,000 units SC Q8 [facility] Last Admin: 07/02/17 05:00 Dose: 5,000 units Hydromorphone HCl (Dilaudid) 1 mg IVP Q4H PRN PRN Reason: Pain, severe (8-10) Last Admin: 07/01/17 19:50 Dose: 1 mg Lisinopril (Zestril) 2.5 mg PO DAILY [facility] Last Admin: 07/02/17 10:34 Dose: 2.5 mg Metoprolol Tartrate (Lopressor) 25 mg PO BID [facility] Last Admin: 07/02/17 10:34 Dose: 25 mg Pneumococcal Polyvalent Vaccine (Pneumovax 23 Vaccine) 0.5 ml IM .ONCE ONE Stop: 07/03/17 10:01 Rosuvastatin Calcium (Crestor) 10 mg PO HS [facility] Last Admin: 07/01/17 21:34 Dose: 10 mg Simethicone (Mylicon Chew Tab) 80 mg PO TID [facility] Last Admin: 07/02/17 10:34 Dose: 80 mg Tolvaptan (Samsca) 15 mg PO DAILY [facility] Stop: 07/03/17 21:23 Last Admin: 07/02/17 10:34 Dose: 15 mg - Labs Labs: 07/02/17 08:05 07/02/17 08:05 PT 12.8 SECONDS (9.7-12.2) H 06/30/17 23:26 INR 1.1 06/30/17 23:26 APTT 30 SECONDS (21-34) 06/30/17 23:26 - Constitutional Appears: Well, No Acute Distress - Head Exam Head Exam: ATRAUMATIC, NORMOCEPHALIC - Eye Exam Eye Exam: absent: Scleral icterus Pupil Exam: PERRL - Respiratory Exam Respiratory Exam: NORMAL BREATHING PATTERN - Cardiovascular Exam Cardiovascular Exam: +S1, +S2 - GI/Abdominal Exam GI & Abdominal Exam: Soft. absent: Tenderness - Neurological Exam Neurological Exam: Alert, Oriented x3 Assessment and Plan - Assessment and Plan (Free Text) Assessment: 62 year old male with h/o CAD s/p CABG who presents with abdominal pain found to have metastatic cancer unknown primary. 1. Liver metastases 2. Pancreatic mass Plan: -metastatic cancer ,unknown primary -possible pancreatic -recommend liver biopsy by IR tomorrow -supportive care with pain control -elevated CEA and [id number] noted -oncology consult appreciated -await biopsy
--- NOTE | 2017-07-02 17:27 | RAD ---
PROCEDURE: Left Hip X-ray Radiographs. HISTORY: pain COMPARISON: None. FINDINGS: BONES: Normal. No fracture. JOINTS: Normal. SOFT TISSUES: Normal. OTHER FINDINGS: None. IMPRESSION: No evidence of acute pathology in the pelvis and left hip
--- NOTE | 2017-07-02 19:35 | CP.PCM.PN ---
Subjective - Date & Time of Evaluation Date of Evaluation: 07/02/17 Time of Evaluation: 08:20 - Subjective Subjective: clinically same Objective - Vital Signs/Intake and Output Vital Signs (last 24 hours): Temp Pulse Resp BP Pulse Ox 98 F 78 20 110/62 97 07/02/17 16:00 07/02/17 16:00 07/02/17 16:00 07/02/17 17:28 07/02/17 16:00 Intake and Output: 07/02/17 07/03/17 18:59 06:59 Intake Total 550 Output Total 0 Balance 550 - Medications Medications: Current Medications Famotidine (Pepcid) 20 mg PO DAILY [facility] Last Admin: 07/02/17 10:40 Dose: 20 mg Gemfibrozil (Lopid) 600 mg PO BID [facility] Last Admin: 07/02/17 17:28 Dose: 600 mg Heparin Sodium (Porcine) (Heparin) 5,000 units SC Q8 [facility] Last Admin: 07/02/17 15:18 Dose: 5,000 units Hydromorphone HCl (Dilaudid) 1 mg IVP Q4H PRN PRN Reason: Pain, severe (8-10) Last Admin: 07/01/17 19:50 Dose: 1 mg Lisinopril (Zestril) 2.5 mg PO DAILY [facility] Last Admin: 07/02/17 10:34 Dose: 2.5 mg Metoprolol Tartrate (Lopressor) 25 mg PO BID [facility] Last Admin: 07/02/17 17:28 Dose: 25 mg Pneumococcal Polyvalent Vaccine (Pneumovax 23 Vaccine) 0.5 ml IM .ONCE ONE Stop: 07/03/17 10:01 Rosuvastatin Calcium (Crestor) 10 mg PO HS [facility] Last Admin: 07/01/17 21:34 Dose: 10 mg Simethicone (Mylicon Chew Tab) 80 mg PO TID [facility] Last Admin: 07/02/17 17:27 Dose: 80 mg - Labs Labs: 07/02/17 08:05 07/02/17 08:05 PT 12.8 SECONDS (9.7-12.2) H 06/30/17 23:26 INR 1.1 06/30/17 23:26 APTT 30 SECONDS (21-34) 06/30/17 23:26 - Constitutional Appears: Well - Head Exam Head Exam: ATRAUMATIC, NORMAL INSPECTION, NORMOCEPHALIC - Eye Exam Eye Exam: EOMI, Normal appearance, PERRL Pupil Exam: NORMAL ACCOMODATION, PERRL - ENT Exam ENT Exam: Mucous Membranes Moist, Normal Exam - Neck Exam Neck Exam: Full ROM, Normal Inspection. absent: Lymphadenopathy - Respiratory Exam Respiratory Exam: Decreased Breath Sounds - Cardiovascular Exam Cardiovascular Exam: REGULAR RHYTHM, +S1, +S2 - GI/Abdominal Exam GI & Abdominal Exam: Soft, Diminished Bowel Sounds - Rectal Exam Rectal Exam: Deferred
--- NOTE | 2017-07-03 07:23 | CP.PCM.PN ---
<Antonietta Alexandra - Last Filed: 07/03/17 10:14> Subjective - Date & Time of Evaluation Date of Evaluation: 07/03/17 Time of Evaluation: 06:35 - Subjective Subjective: GI Fellow PGY4 Progress Note Pt seen and evaluated at bedside, pt reports left groin/hip pain and right sided back pain. Hip Xray reviewed which is negative for any fractures or pathology. Pt denies nausea, vomiting or epigastric abdominal pain. No acute issues overnight. ROS: A 12pt ROS was negative except as above. Objective - Vital Signs/Intake and Output Vital Signs (last 24 hours): Temp Pulse Resp BP Pulse Ox 98.1 F 70 20 133/73 98 07/02/17 23:16 07/02/17 23:16 07/02/17 23:16 07/02/17 23:16 07/02/17 23:16 Intake and Output: 07/03/17 07/03/17 06:59 18:59 Intake Total 200 Balance 200 - Medications Medications: Current Medications Famotidine (Pepcid) 20 mg PO DAILY [facility] Last Admin: 07/02/17 10:40 Dose: 20 mg Gemfibrozil (Lopid) 600 mg PO BID [facility] Last Admin: 07/02/17 17:28 Dose: 600 mg Heparin Sodium (Porcine) (Heparin) 5,000 units SC Q8 [facility] Last Admin: 07/03/17 05:14 Dose: 5,000 units Hydromorphone HCl (Dilaudid) 1 mg IVP Q4H PRN PRN Reason: Pain, severe (8-10) Last Admin: 07/01/17 19:50 Dose: 1 mg Lisinopril (Zestril) 2.5 mg PO DAILY [facility] Last Admin: 07/02/17 10:34 Dose: 2.5 mg Metoprolol Tartrate (Lopressor) 25 mg PO BID [facility] Last Admin: 07/02/17 17:28 Dose: 25 mg Pneumococcal Polyvalent Vaccine (Pneumovax 23 Vaccine) 0.5 ml IM .ONCE ONE Stop: 07/03/17 10:01 Rosuvastatin Calcium (Crestor) 10 mg PO HS [facility] Last Admin: 07/02/17 21:22 Dose: 10 mg Simethicone (Mylicon Chew Tab) 80 mg PO TID [facility] Last Admin: 07/02/17 17:27 Dose: 80 mg - Labs Labs: 07/02/17 08:05 07/02/17 08:05 PT 12.8 SECONDS (9.7-12.2) H 06/30/17 23:26 INR 1.1 06/30/17 23:26 APTT 30 SECONDS (21-34) 06/30/17 23:26 - Constitutional Appears: Non-toxic, Cachectic - Head Exam Head Exam: ATRAUMATIC, NORMAL INSPECTION, NORMOCEPHALIC - Eye Exam Eye Exam: EOMI, Normal appearance, PERRL Pupil Exam: PERRL - ENT Exam ENT Exam: Mucous Membranes Moist, Normal Exam - Neck Exam Neck Exam: Full ROM, Normal Inspection - Respiratory Exam Respiratory Exam: Clear to Ausculation Bilateral, NORMAL BREATHING PATTERN - Cardiovascular Exam Cardiovascular Exam: RRR, +S1, +S2 - GI/Abdominal Exam GI & Abdominal Exam: Distended, Soft, Tenderness, Normal Bowel Sounds, Organomegaly - Rectal Exam Rectal Exam: Deferred - Extremities Exam Extremities Exam: Full ROM, Normal Inspection. absent: Pedal Edema - Back Exam Back Exam: NORMAL INSPECTION - Neurological Exam Neurological Exam: Alert, Awake, Oriented x3 - Psychiatric Exam Psychiatric exam: Normal Affect, Normal Mood - Skin Skin Exam: Dry, Intact, Normal Color, Warm Assessment and Plan - Assessment and Plan (Free Text) Assessment: This is a 62M with hx of CAD, HTN, HL, and GERD who presents to the ED with complaints of RUQ pain. CT abd revealed multiple hepatic lesions, pancreatic lesions, bone mets, lung lesions. 1. Liver metastases 2. Pancreatic mass 3. Metastatic disease, unknown source or primary 4. GERD 5. ETOH use 6. Elevated CEA, CA19-9 Plan: -Continue supportive care with pain control, anti-emetics -Plan for IR guided biopsy for pathology of likely metastatic cancer,unknown primary -Elevated CEA and CA19-9 -Hepatitis, autoimmune panel negative -Continue diet as tolerated, keep NPO for possible liver biopsy today -Will continue to follow closely and further recommendations based on liver biopsy/pathology <Vida Coelho MD - Last Filed: 07/03/17 13:18> Objective - Vital Signs/Intake and Output Vital Signs (last 24 hours): Temp Pulse Resp BP Pulse Ox 97.8 F 73 20 130/80 96 07/03/17 07:58 07/03/17 07:58 07/03/17 07:58 07/03/17 09:33 07/03/17 07:58 Intake and Output: 07/03/17 07/03/17 06:59 18:59 Intake Total 200 Balance 200 - Medications Medications: Current Medications Famotidine (Pepcid) 20 mg PO DAILY [facility] Last Admin: 07/03/17 09:33 Dose: 20 mg Gemfibrozil (Lopid) 600 mg PO BID [facility] Last Admin: 07/03/17 09:33 Dose: 600 mg Heparin Sodium (Porcine) (Heparin) 5,000 units SC Q8 [facility] Last Admin: 07/03/17 05:14 Dose: 5,000 units Hydromorphone HCl (Dilaudid) 1 mg IVP Q4H PRN PRN Reason: Pain, severe (8-10) Last Admin: 07/01/17 19:50 Dose: 1 mg Lisinopril (Zestril) 2.5 mg PO DAILY [facility] Last Admin: 07/03/17 09:33 Dose: 2.5 mg Metoprolol Tartrate (Lopressor) 25 mg PO BID [facility] Last Admin: 07/03/17 09:33 Dose: 25 mg Rosuvastatin Calcium (Crestor) 10 mg PO HS [facility] Last Admin: 07/02/17 21:22 Dose: 10 mg Simethicone (Mylicon Chew Tab) 80 mg PO TID [facility] Last Admin: 07/03/17 09:33 Dose: 80 mg - Labs Labs: 07/02/17 08:05 07/02/17 08:05 PT 12.8 SECONDS (9.7-12.2) H 06/30/17 23:26 INR 1.1 06/30/17 23:26 APTT 30 SECONDS (21-34) 06/30/17 23:26 Attending/Attestation - Attestation I have personally seen and examined this patient.: Yes I have fully participated in the care of the patient.: Yes I have reviewed all pertinent clinical information, including history, physical exam and plan: Yes Notes (Text): 07/03/17 13:16 Patient seen with GI fellow on rounds this am. This is a 62 year old male with h /o CAD s/p CABG who presents with abdominal pain found to have metastatic cancer to liver, lung and bones with unknown primary. Likely pancreatic primary. Was scheduled for IR guided liver biopsy today but patient ate breakfast. Discussed with nursing to reschedule biopsy. Will await biopsy results. Last colonoscopy 2 years at [facility] which was normal as per patient. Supportive care
[2017-07-03] MEDS: Simethicone 80 mg Chewtab PO SCH ×3 (09:33→17:27)
[2017-07-03] MEDS ORDERED: Influenza Vaccine 60 mcg/0.5 mL SYR (4YR UP) IM ONE (10:00)
[2017-07-03] MEDS ORDERED: Pneumococcal 23-Valent Vaccine IM ONE (10:00)
--- NOTE | 2017-07-03 22:02 | CP.PCM.PN ---
Subjective - Date & Time of Evaluation Date of Evaluation: 07/03/17 Objective - Vital Signs/Intake and Output Vital Signs (last 24 hours): Temp Pulse Resp BP Pulse Ox 98.1 F 73 20 115/65 97 07/03/17 15:53 07/03/17 15:53 07/03/17 15:53 07/03/17 17:28 07/03/17 15:53 Intake and Output: 07/03/17 07/04/17 18:59 06:59 Intake Total 600 Balance 600 - Medications Medications: Current Medications Famotidine (Pepcid) 20 mg PO DAILY [facility] Last Admin: 07/03/17 09:33 Dose: 20 mg Gemfibrozil (Lopid) 600 mg PO BID [facility] Last Admin: 07/03/17 17:28 Dose: 600 mg Heparin Sodium (Porcine) (Heparin) 5,000 units SC Q8 [facility] Last Admin: 07/03/17 21:21 Dose: Not Given Hydromorphone HCl (Dilaudid) 1 mg IVP Q4H PRN PRN Reason: Pain, severe (8-10) Last Admin: 07/01/17 19:50 Dose: 1 mg Lisinopril (Zestril) 2.5 mg PO DAILY [facility] Last Admin: 07/03/17 09:33 Dose: 2.5 mg Metoprolol Tartrate (Lopressor) 25 mg PO BID [facility] Last Admin: 07/03/17 17:28 Dose: 25 mg Rosuvastatin Calcium (Crestor) 10 mg PO HS [facility] Last Admin: 07/03/17 21:19 Dose: 10 mg Simethicone (Mylicon Chew Tab) 80 mg PO TID [facility] Last Admin: 07/03/17 17:27 Dose: 80 mg - Labs Labs: 07/02/17 08:05 07/02/17 08:05 PT 12.8 SECONDS (9.7-12.2) H 06/30/17 23:26 INR 1.1 06/30/17 23:26 APTT 30 SECONDS (21-34) 06/30/17 23:26
[2017-07-04 06:53] LABS: BASO # 0.1 K/uL (0.0-0.2); BASO % 0.7 % (0.0-2.0); EOS # 0.3 K/uL (0.0-0.7); EOS % 2.9 % (0.0-4.0); HEMATOCRIT 38.3 % (35.0-51.0); LYMPH # 1.8 K/uL (1.0-4.3); LYMPH % 18.2 % (20.0-40.0); MEAN CELL VOLUME 93.1 fL (80.0-94.0); MEAN CORPUSCULAR HEMOGLOBIN 32.5 pg (27.0-31.0); MEAN CORPUSCULAR HGB CONC 34.9 g/dL (33.0-37.0); MEAN PLATELET VOLUME 7.7 fL (7.2-11.7); MONO # 0.7 K/uL (0.0-0.8); MONO % 7.3 % (0.0-10.0); RED CELL DISTRIBUTION WIDTH 13.5 % (11.5-14.5); WHITE BLOOD COUNT 9.9 K/uL (4.8-10.8)
--- NOTE | 2017-07-04 07:14 | CP.PCM.PN ---
<Antonietta Alexandra - Last Filed: 07/04/17 09:03> Subjective - Date & Time of Evaluation Date of Evaluation: 07/04/17 Time of Evaluation: 06:40 - Subjective Subjective: GI Fellow PGY4 Progress Note Pt seen and evaluated at bedside, pt reports feeling better this am with decreased right sided back pain. Pt denies nausea, vomiting or epigastric abdominal pain. No acute issues overnight. Pt NPO for liver biopsy today. ROS: A 12pt ROS was negative except as above. Objective - Vital Signs/Intake and Output Vital Signs (last 24 hours): Temp Pulse Resp BP Pulse Ox 98.3 F 79 20 127/69 97 07/03/17 23:23 07/03/17 23:23 07/03/17 23:23 07/03/17 23:23 07/03/17 23:23 Intake and Output: 07/04/17 07/04/17 06:59 18:59 Intake Total 0 Output Total 300 Balance -300 - Medications Medications: Current Medications Famotidine (Pepcid) 20 mg PO DAILY [facility] Last Admin: 07/03/17 09:33 Dose: 20 mg Gemfibrozil (Lopid) 600 mg PO BID [facility] Last Admin: 07/03/17 17:28 Dose: 600 mg Heparin Sodium (Porcine) (Heparin) 5,000 units SC Q8 [facility] Last Admin: 07/03/17 21:21 Dose: Not Given Hydromorphone HCl (Dilaudid) 1 mg IVP Q4H PRN PRN Reason: Pain, severe (8-10) Last Admin: 07/01/17 19:50 Dose: 1 mg Lisinopril (Zestril) 2.5 mg PO DAILY [facility] Last Admin: 07/03/17 09:33 Dose: 2.5 mg Metoprolol Tartrate (Lopressor) 25 mg PO BID [facility] Last Admin: 07/03/17 17:28 Dose: 25 mg Rosuvastatin Calcium (Crestor) 10 mg PO HS [facility] Last Admin: 07/03/17 21:19 Dose: 10 mg Simethicone (Mylicon Chew Tab) 80 mg PO TID [facility] Last Admin: 07/03/17 17:27 Dose: 80 mg - Labs Labs: 07/04/17 06:43 07/02/17 08:05 PT 12.8 SECONDS (9.7-12.2) H 06/30/17 23:26 INR 1.1 06/30/17 23:26 APTT 30 SECONDS (21-34) 06/30/17 23:26 - Constitutional Appears: No Acute Distress, Cachectic - Head Exam Head Exam: ATRAUMATIC, NORMAL INSPECTION, NORMOCEPHALIC - Eye Exam Eye Exam: EOMI, Normal appearance, PERRL - ENT Exam ENT Exam: Mucous Membranes Moist, Normal Exam - Neck Exam Neck Exam: Full ROM, Normal Inspection - Respiratory Exam Respiratory Exam: Clear to Ausculation Bilateral, NORMAL BREATHING PATTERN - Cardiovascular Exam Cardiovascular Exam: RRR, +S1, +S2 - GI/Abdominal Exam GI & Abdominal Exam: Soft, Tenderness, Normal Bowel Sounds, Organomegaly. absent: Distended, Guarding, Rigid - Rectal Exam Rectal Exam: Deferred - Extremities Exam Extremities Exam: Full ROM, Normal Inspection - Back Exam Back Exam: NORMAL INSPECTION - Neurological Exam Neurological Exam: Alert, Awake, Oriented x3 - Psychiatric Exam Psychiatric exam: Normal Affect, Normal Mood - Skin Skin Exam: Dry, Intact, Normal Color, Warm Assessment and Plan - Assessment and Plan (Free Text) Assessment: This is a 62M with hx of CAD, HTN, HL, and GERD who presents to the ED with complaints of RUQ pain. CT abd revealed multiple hepatic lesions, pancreatic lesions, bone mets, lung lesions. 1. Liver metastases 2. Pancreatic mass 3. Metastatic disease, unknown source or primary 4. GERD 5. ETOH use 6. Elevated CEA, CA19-9 Plan: -Continue supportive care with pain control, anti-emetics -Plan for IR guided biopsy today for pathology of likely metastatic cancer, unknown primary -Elevated CEA and CA19-9 -Hepatitis, autoimmune panel negative -Continue diet as tolerated, keep NPO for possible liver biopsy today -Will continue to follow closely and further recommendations based on liver biopsy/pathology <Thiago Finney - Last Filed: 07/04/17 11:21> Objective - Vital Signs/Intake and Output Vital Signs (last 24 hours): Temp Pulse Resp BP Pulse Ox 98.2 F 86 20 133/82 97 07/04/17 07:29 07/04/17 07:29 07/04/17 07:29 07/04/17 07:29 07/04/17 07:29 Intake and Output: 07/04/17 07/04/17 06:59 18:59 Intake Total 0 Output Total 300 Balance -300 - Medications Medications: Current Medications Famotidine (Pepcid) 20 mg PO DAILY [facility] Last Admin: 07/04/17 09:19 Dose: Not Given Gemfibrozil (Lopid) 600 mg PO BID [facility] Last Admin: 07/04/17 09:19 Dose: Not Given Heparin Sodium (Porcine) (Heparin) 5,000 units SC Q8 [facility] Last Admin: 07/04/17 06:00 Dose: Not Given Hydromorphone HCl (Dilaudid) 1 mg IVP Q4H PRN PRN Reason: Pain, severe (8-10) Last Admin: 07/01/17 19:50 Dose: 1 mg Lisinopril (Zestril) 2.5 mg PO DAILY [facility] Last Admin: 07/04/17 09:19 Dose: Not Given Metoprolol Tartrate (Lopressor) 25 mg PO BID [facility] Last Admin: 07/04/17 09:19 Dose: Not Given Rosuvastatin Calcium (Crestor) 10 mg PO HS [facility] Last Admin: 07/03/17 21:19 Dose: 10 mg Simethicone (Mylicon Chew Tab) 80 mg PO TID [facility] Last Admin: 07/04/17 09:19 Dose: Not Given - Labs Labs: 07/04/17 06:43 07/04/17 06:43 PT 12.8 SECONDS (9.7-12.2) H 06/30/17 23:26 INR 1.1 06/30/17 23:26 APTT 30 SECONDS (21-34) 06/30/17 23:26 Attending/Attestation - Attestation I have personally seen and examined this patient.: Yes I have fully participated in the care of the patient.: Yes I have reviewed all pertinent clinical information, including history, physical exam and plan: Yes Notes (Text): 07/04/17 11:17 I have seen and examined patient with GI fellow. No acute events overnight, he is seen resting in bed comfortably. He denies abdominal pain, nausea, vomiting , fever/chills. Tolerating PO diet without difficulty. CAD HTN RUQ abdominal pain - CT imaging consistent with diffuse metastatic disease ( pancreas, liver, bone), unknown primary origin Elevated tumor markers - Diet as tolerated - CT imaging reviewed by me showing extensive hepatic lesions, plan for IR guided liver biopsy today for further evaluation - Follow up oncology recommendations - Overall prognosis for patient is poor - Pain control - Continue to monitor LFTs, no evidence of obstructive biliary pathology - Will continue to monitor patient clinical course
[2017-07-04 07:23] LABS: CHLORIDE 97 mmol/L (98-107); POTASSIUM 5.4 mmol/L (3.6-5.2); SODIUM 132 mmol/L (132-148)
[2017-07-04 07:25] LABS: GFR AFRICAN-AMERICAN > 60
[2017-07-04 07:26] LABS: ALB/GLOB RATIO 1.2 (1.0-2.1); ALKALINE PHOSPHATASE 504 U/L (38-126); ALT/SGPT 90 U/L (21-72); AST/SGOT 151 U/L (17-59); BILIRUBIN,TOTAL 0.9 mg/dL (0.2-1.3); BLOOD UREA NITROGEN 17 mg/dL (9-20); CALCIUM 10.1 mg/dl (8.6-10.4); CARBON DIOXIDE 23 mmol/L (22-30); GLUCOSE,RANDOM 87 mg/dL (75-110); TOTAL PROTEIN 7.8 g/dL (6.3-8.3)
--- NOTE | 2017-07-04 08:58 | CP.PCM.CON ---
History of Present Illness - History of Present Illness History of Present Illness: Palliative consult Requested by Fidelia GUIDRY Reason; Goals of care discussion Patient is a 62 yo male admitted from home with abdominal pain and legs pain. X 10 days. patient took a lot of Motrin at home for pain. Pain was described as dull and throbbing. Patient admits to appetite and weight loss. The CT abdomen upon admission was significant for hepatic, pancreas and osseous mets. Some lung nodules seen as well. The liver Bx was suggested by Doctor Kathia. PMH: HTN, HDL, Soc. hx: maried, lives at home, ETOH abuse 15 years ago, smokes 2 cigarettes / day Fam Hx: brother from liver [place] Review of Systems - Constitutional Constitutional: Weight Loss - EENT Eyes: absent: As Per HPI, Blind Spots, Blurred Vision, Change in Vision, Decreased Night Vision, Diplopia, Discharge, Dry Eye, Exophthalmos, Floaters, Irritation, Itchy Eyes, Loss of Peripheral Vision, Pain, Photophobia, Requires Corrective Lenses, Sees Flashes, Spots in Vision, Tunnel Vision, Other Visual Disturbances, Loss of Vision, Other Ears: absent: As Per HPI, Decreased Hearing, Ear Discharge, Ear Pain, Tinnitus, Abnormal Hearing, Disequilibrium, Dizziness, Other Nose/Mouth/Throat: absent: As Per HPI, Epistaxis, Nasal Congestion, Nasal Discharge, Nasal Obstruction, Nasal Trauma, Nose Pain, Post Nasal Drip, Sinus Pain, Sinus Pressure, Bleeding Gums, Change in Voice, Dental Pain, Dry Mouth, Dysphagia, Halitosis, Hoarsness, Lip Swelling, Mouth Lesions, Mouth Pain, Odynophagia, Sore Throat, Throat Swelling, Tongue Swelling, Facial Pain, Neck Pain, Neck Mass, Other - Cardiovascular Cardiovascular: Pedal Edema - Respiratory Respiratory: Dyspnea on Exertion - Gastrointestinal Gastrointestinal: Bloating - Genitourinary Genitourinary: absent: As Per HPI, Change in Urinary Stream, Difficulty Urinating, Dysuria, Flank Pain, Hematuria, Pyuria, Nocturia, Urinary Incontinence, Urinary Frequency, Urinary Hesitance, Urinary Urgency, Voiding Freq/Small Amts, Freq UTI, Hx Renal/Bladder Calculi, Hx /Renal Surgery, Bladder Distension, Other - Musculoskeletal Additional comments: LEs pain - Integumentary Integumentary: Change in Pigmentation - Neurological Neurological: Weakness - Psychiatric Psychiatric: Anxiety - Endocrine Endocrine: Fatigue - Hematologic/Lymphatic Hematologic: absent: As Per HPI, Easy Bleeding, Easy Bruising, Lymphadenopathy, Other Past Patient History - Infectious Disease Hx of Infectious Diseases: None - Past Medical History & Family History Past Medical History?: Yes - Past Social History Smoking Status: Light Smoker < 10 Cigarettes Daily - CARDIAC Hx Cardiac Disorders: Yes Hx Hypertension: Yes - PULMONARY Hx Respiratory Disorders: No - NEUROLOGICAL Hx Neurological Disorder: No Hx Paralysis: No - HEENT Hx HEENT Problems: No - RENAL Hx Chronic Kidney Disease: No - ENDOCRINE/METABOLIC Hx Endocrine Disorders: No - HEMATOLOGICAL/ONCOLOGICAL Hx Blood Disorders: No Hx Blood Transfusions: No - INTEGUMENTARY Hx Dermatological Problems: No - MUSCULOSKELETAL/RHEUMATOLOGICAL Hx Arthritis: Yes (BACK/ HIP/KNEE) - GASTROINTESTINAL Hx Gastrointestinal Disorders: Yes Hx Gastritis: Yes - GENITOURINARY/GYNECOLOGICAL Hx Genitourinary Disorders: No - PSYCHIATRIC Hx Substance Use: No - SURGICAL HISTORY Hx Surgeries: Yes Hx Coronary Artery Bypass Graft: Yes - ANESTHESIA Hx Anesthesia: Yes Hx Anesthesia Reactions: No Hx Malignant Hyperthermia: No Has any member of the family had a problem w/ anesthesia?: No Meds Allergies/Adverse Reactions: Allergies Allergy/AdvReac Type Severity Reaction Status Date / Time No Known Allergies Allergy Verified 06/30/17 22:50 - Medications Medications: Current Medications Famotidine (Pepcid) 20 mg PO DAILY [facility] Last Admin: 07/03/17 09:33 Dose: 20 mg Gemfibrozil (Lopid) 600 mg PO BID [facility] Last Admin: 07/03/17 17:28 Dose: 600 mg Heparin Sodium (Porcine) (Heparin) 5,000 units SC Q8 [facility] Last Admin: 07/04/17 06:00 Dose: Not Given Hydromorphone HCl (Dilaudid) 1 mg IVP Q4H PRN PRN Reason: Pain, severe (8-10) Last Admin: 07/01/17 19:50 Dose: 1 mg Lisinopril (Zestril) 2.5 mg PO DAILY [facility] Last Admin: 07/03/17 09:33 Dose: 2.5 mg Metoprolol Tartrate (Lopressor) 25 mg PO BID [facility] Last Admin: 07/03/17 17:28 Dose: 25 mg Rosuvastatin Calcium (Crestor) 10 mg PO HS [facility] Last Admin: 07/03/17 21:19 Dose: 10 mg Simethicone (Mylicon Chew Tab) 80 mg PO TID [facility] Last Admin: 07/03/17 17:27 Dose: 80 mg Physical Exam - Constitutional Appears: Chronically Ill - Head Exam Head Exam: ATRAUMATIC, NORMAL INSPECTION, NORMOCEPHALIC - Eye Exam Eye Exam: EOMI, Normal appearance, PERRL Pupil Exam: NORMAL ACCOMODATION, PERRL - ENT Exam ENT Exam: Mucous Membranes Moist, Normal Exam - Neck Exam Neck exam: Positive for: Normal Inspection - Respiratory Exam Respiratory Exam: Decreased Breath Sounds, NORMAL BREATHING PATTERN - Cardiovascular Exam Cardiovascular Exam: REGULAR RHYTHM - GI/Abdominal Exam GI & Abdominal Exam: Distended, Firm - Rectal Exam Rectal Exam: Deferred - Exam Exam: Scrotal Swelling - Extremities Exam Extremities exam: Positive for: pedal edema - Back Exam Back exam: NORMAL INSPECTION - Neurological Exam Neurological exam: Alert, CN II-XII Intact, Normal Gait, Oriented x3, Reflexes Normal - Psychiatric Exam Psychiatric exam: Anxious - Skin Skin Exam: Pallor Results - Vital Signs Recent Vital Signs: Last Vital Signs Temp 98.2 F 07/04/17 07:29 Pulse 86 07/04/17 07:29 Resp 20 07/04/17 07:29 BP 133/82 07/04/17 07:29 Pulse Ox 97 07/04/17 07:29 - Labs Result Diagrams: 07/04/17 06:43 07/04/17 06:43 Labs: Laboratory Results - last 24 hr 07/01/17 07/01/17 07/04/17 14:09 14:09 06:43 WBC 9.9 D RBC 4.12 L Hgb 13.4 Hct 38.3 MCV 93.1 MCH 32.5 H MCHC 34.9 RDW 13.5 Plt Count 285 MPV 7.7 Neut % (Auto) 70.9 Lymph % (Auto) 18.2 L [place] % (Auto) 7.3 Eos % (Auto) 2.9 Baso % (Auto) 0.7 Neut # 7.0 Lymph # 1.8 [place] # 0.7 Eos # 0.3 Baso # 0.1 Sodium Potassium Chloride Carbon Dioxide Anion Gap BUN Creatinine Est GFR ( Amer) Est GFR (Non-Af Amer) Random Glucose Calcium Total Bilirubin AST ALT Alkaline Phosphatase Total Protein Albumin Globulin Albumin/Globulin Ratio Ceruloplasmin 38 H Urine Osmolality TERESITA 6 Profile Negative Anti-Mitochondrial Ab Negative Anti-Smooth Muscle Ab Negative 07/04/17 07/04/17 06:43 08:14 WBC RBC Hgb Hct MCV MCH MCHC RDW Plt Count MPV Neut % (Auto) Lymph % (Auto) [place] % (Auto) Eos % (Auto) Baso % (Auto) Neut # Lymph # [place] # Eos # Baso # Sodium 132 Potassium 5.4 H Chloride 97 L Carbon Dioxide 23 Anion Gap 17 BUN 17 Creatinine 0.8 Est GFR ( Amer) > 60 Est GFR (Non-Af Amer) > 60 Random Glucose 87 Calcium 10.1 Total Bilirubin 0.9 AST 151 H D ALT 90 H Alkaline Phosphatase 504 H Total Protein 7.8 Albumin 4.3 Globulin 3.5 Albumin/Globulin Ratio 1.2 Ceruloplasmin Urine Osmolality 628 TERESITA 6 Profile Anti-Mitochondrial Ab Anti-Smooth Muscle Ab Assessment & Plan - Assessment and Plan (Free Text) Assessment: palliative consult Code status Full Code, no Advance Directive/ Living Will on chart, PPS 60% I reviewed medical records, all diagnostic studies, examined and interviewed patient and had a long goals of care discussion with his two daughters and the son. patient is alert, oriented x 3 in no acute distress, but looking chronically ill. Skin is icteric, Total Srinivasan 1.4. AST and ALT elevated. Diminished breath sounds, admits to SOB on exertion. Abdomen firmly distended, denies abdominal pain, last BM this am. There is scrotal and pedal edema. patient denies acute symptoms at present. Daughter Lety and son Giovanny asked to discuss goals of care away from the bed side. They state patient is not aware of his diagnosis and they wanted to see the liver Bx results before disclosing diagnosis to the father. Patient is only Faroese speaking. In separate room , I discussed goals of care. First I reviewed with family the CT abdomen finding suggesting the metastatic disease. Family had heard this this from Doctor Bib last night. Family had many questions about the liver cancer and its prognosis based on statistics. I answered those questions for them. Family admits being faith and relies on God for most what life brings to them. Their reasoning of the whole situation is directed toward the cure of the disease. I reassured family, that course of the disease will mostly depend of the stage of cancer and that chemo Tx may be an option, what would be up to Doctor Bae to further discuss. I also offered more information on chemo Tx and its side effects. I discussed quality of life vs aggressive treatment. Code status discussed. Family admits, theyhad not had that kind of discussion with the patient and did not know his wishes for the end f life care. Impression * Chronically ill man not aware of his diagnosis * Family does not want patient to be told about diagnoses until the liver Bx results available * Patient's wishes for the end of life care are not known * There is no surrogate decision maker * Family is fostering a false hope in recovery and heavily relies on God for help Impression * I will complete Advance Directive with patient today, especially for surrogate decision maker * Continue symptomatic Tx * Pastoral visit for spiritual support I will continue to fallow up with this patient and offer support.
--- NOTE | 2017-07-04 09:15 | CP.PCM.PN ---
Subjective - Date & Time of Evaluation Date of Evaluation: 07/04/17 Time of Evaluation: 09:14 - Subjective Subjective: PGY-[address] Mccartney's service: Pt seen and examined at bedside. Nursing reports pt NPO for liver biopsy today with IR. Pt denies abdominal pain, N/V, but points to his left hip/inguinal area as source of pain. Spoke with patient family, regarding disposition. They understand biopsy will take a few days before results will come back. Objective - Vital Signs/Intake and Output Vital Signs (last 24 hours): Temp Pulse Resp BP Pulse Ox 98.2 F 86 20 133/82 97 07/04/17 07:29 07/04/17 07:29 07/04/17 07:29 07/04/17 07:29 07/04/17 07:29 Intake and Output: 07/04/17 07/04/17 06:59 18:59 Intake Total 0 Output Total 300 Balance -300 - Medications Medications: Current Medications Famotidine (Pepcid) 20 mg PO DAILY [facility] Last Admin: 07/03/17 09:33 Dose: 20 mg Gemfibrozil (Lopid) 600 mg PO BID [facility] Last Admin: 07/03/17 17:28 Dose: 600 mg Heparin Sodium (Porcine) (Heparin) 5,000 units SC Q8 [facility] Last Admin: 07/04/17 06:00 Dose: Not Given Hydromorphone HCl (Dilaudid) 1 mg IVP Q4H PRN PRN Reason: Pain, severe (8-10) Last Admin: 07/01/17 19:50 Dose: 1 mg Lisinopril (Zestril) 2.5 mg PO DAILY [facility] Last Admin: 07/03/17 09:33 Dose: 2.5 mg Metoprolol Tartrate (Lopressor) 25 mg PO BID [facility] Last Admin: 07/03/17 17:28 Dose: 25 mg Rosuvastatin Calcium (Crestor) 10 mg PO HS [facility] Last Admin: 07/03/17 21:19 Dose: 10 mg Simethicone (Mylicon Chew Tab) 80 mg PO TID [facility] Last Admin: 07/03/17 17:27 Dose: 80 mg - Labs Labs: 07/04/17 06:43 07/04/17 06:43 PT 12.8 SECONDS (9.7-12.2) H 06/30/17 23:26 INR 1.1 06/30/17 23:26 APTT 30 SECONDS (21-34) 06/30/17 23:26 - Constitutional Appears: Non-toxic, No Acute Distress, Chronically Ill - Head Exam Head Exam: ATRAUMATIC, NORMOCEPHALIC - Eye Exam Eye Exam: EOMI, Normal appearance. absent: Scleral icterus - ENT Exam ENT Exam: Mucous Membranes Moist - Neck Exam Neck Exam: Full ROM - Respiratory Exam Respiratory Exam: Clear to Ausculation Bilateral, NORMAL BREATHING PATTERN. absent: Accessory Muscle Use, Rales, Rhonchi, Wheezes, Respiratory Distress - Cardiovascular Exam Cardiovascular Exam: RRR, +S1, +S2 - GI/Abdominal Exam GI & Abdominal Exam: Organomegaly (Hepatomegaly). absent: Distended - Extremities Exam Additional comments: Tenderness to palpation left hip - Back Exam Back Exam: absent: CVA tenderness (L), CVA tenderness (R) - Neurological Exam Neurological Exam: Alert, Awake, Oriented x3 - Psychiatric Exam Psychiatric exam: Normal Affect, Normal Mood - Skin Skin Exam: Dry, Normal Color, Warm Assessment and Plan - Assessment and Plan (Free Text) Plan: Metastatic Cancer - Likely Pancreatic Primary Admitted to med/surg 06/30/17 Hx of heavy ETOH CT A/P (07/01/2017): Findings compatible w/ hepatic, pancreatic, osseous metastases. Possible kidney lesion, indeterminate. Primary malignancy/mets not excluded. Pulmonary nodules, indeterminate. Metastases not excluded. (see full report) CT Chest (07/02/17): Heterogenous opacity/infiltrate at medial aspect of right upper lobe/apex may represent pneumonia. Primary lung neoplasm is less likely. Adjacent 5mm noncalcified nodule in upper lobe may represent mets. moderate right, small left pleural effusion. Cardiomegaly. Diffuse osseous mets in t- spine/sternum. Dr Finney, GI beverage sales consultant, help appreciated: Hepatitis panel negative f/u IR guided Biopsy for today Dr. Pate, IR beverage sales consultant, help appreciated f/u IR guided Biopsy for today Hem/Onc Consult: Dr Bae, help appreciated Recommend liver biopsy Elevated CEA, CA 19-9 Palliative care consult, Vannessa Talavera, help appreciated: - Chronically ill man not aware of his diagnosis - Family does not want patient to be told about diagnoses until the liver Bx results available Dilaudid 1mg IV Q4H PRN CAD Hx of CABG Crestor 10mg PO HS HTN Lisinopril 2.5 mg PO Daily Lopressor 25mg PO BID Hyperlipidemia Lopid 600mg PO BID Crestor 10mg PO HS GERD Pepcid 20mg PO BID Hip Pain XR Hip/Pelvis: No evidence of acute pathology Prophylaxis NPO for liver biopsy Pepcid 20mg PO BID Heparin 5000u SC Q8H JANESs Tyrese Rascon PGY-2 All medical management per Dr. Mccartney
[2017-07-04] MEDS: Simethicone 80 mg Chewtab PO SCH ×2 (09:19→17:29)
[2017-07-04] MEDS ORDERED: Midazolam 2 MG/2 ML VIAL ONE (11:24)
[2017-07-04] MEDS ORDERED: Absorbable Gelatin Sponge Size 12-7 ONE (11:30)
--- NOTE | 2017-07-04 11:44 | PCM.SURG1 ---
Surgeon's Initial Post Op Note - Surgeon's Notes Surgeon: Meek Pate MD Estimate Clerk: NONE Type of Anesthesia: IV Sedation Pre-Operative Diagnosis: Liver masses Operative Findings: US showed multiple echogenic masses right liver. Post-Operative Diagnosis: Liver masses Operation Performed: US guided right liver mass biopsy. Specimen/Specimens Removed: 18 gauge core x 3 Estimated Blood Loss: EBL {In ML}: 1 Blood Products Given: N/A Drains Used: No Drains Post-Op Condition: Fair Date of Surgery/Procedure: 07/04/17 Time of Surgery/Procedure: 11:40
--- NOTE | 2017-07-04 12:19 | US ---
PROCEDURE: Date of procedure: 07/04/2017 Procedure: Ultrasound-guided percutaneous core biopsy of liver mass, CPT 53657 Ultrasound guidance for biopsy, CPT 06600 Medications: The patient was sedated by the anesthesiologist with IV sedation and monitoring. 6 cc 1 % Lidocaine HISTORY: Liver Masses TECHNIQUE: Following informed consent and procedure time-out, the patient was placed supine on bed and limited ultrasound showed multiple echogenic liver masses within the right hepatic lobe. After the patient abdomen was prepped and draped in the usual sterile fashion and the skin anesthetized with lidocaine, an 18 gauge core needle was advanced percutaneously under direct ultrasound guidance into a mass. Upon confirmation of needle position, three core specimens were obtained and sent for routine pathology. The biopsy track was then embolized with Gelfoam. A post biopsy ultrasound performed showed no hematoma. A dressing was applied. IMPRESSION: Innumerable masses throughout the right and left liver. Ultrasound-guided core biopsy of liver mass.
--- NOTE | 2017-07-04 19:00 | CP.PCM.PN ---
Subjective - Date & Time of Evaluation Date of Evaluation: 07/04/17 Time of Evaluation: 07:20 - Subjective Subjective: clinically same Objective - Vital Signs/Intake and Output Vital Signs (last 24 hours): Temp Pulse Resp BP Pulse Ox 97.7 F 79 20 132/70 98 07/04/17 15:44 07/04/17 16:07 07/04/17 15:44 07/04/17 17:29 07/04/17 16:07 Intake and Output: 07/04/17 07/04/17 06:59 18:59 Intake Total 0 500 Output Total 300 400 Balance -300 100 - Medications Medications: Current Medications Famotidine (Pepcid) 20 mg PO DAILY [facility] Last Admin: 07/04/17 09:19 Dose: Not Given Gemfibrozil (Lopid) 600 mg PO BID [facility] Last Admin: 07/04/17 17:28 Dose: 600 mg Hydromorphone HCl (Dilaudid) 1 mg IVP Q4H PRN PRN Reason: Pain, severe (8-10) Last Admin: 07/04/17 12:19 Dose: 1 mg Lisinopril (Zestril) 2.5 mg PO DAILY [facility] Last Admin: 07/04/17 09:19 Dose: Not Given Metoprolol Tartrate (Lopressor) 25 mg PO BID [facility] Last Admin: 07/04/17 17:29 Dose: 25 mg Rosuvastatin Calcium (Crestor) 10 mg PO HS [facility] Last Admin: 07/03/17 21:19 Dose: 10 mg Simethicone (Mylicon Chew Tab) 80 mg PO TID [facility] Last Admin: 07/04/17 17:29 Dose: 80 mg - Labs Labs: 07/04/17 06:43 07/04/17 06:43 PT 12.8 SECONDS (9.7-12.2) H 06/30/17 23:26 INR 1.1 06/30/17 23:26 APTT 30 SECONDS (21-34) 06/30/17 23:26 - Constitutional Appears: Well - Head Exam Head Exam: ATRAUMATIC, NORMAL INSPECTION, NORMOCEPHALIC - Eye Exam Eye Exam: EOMI, Normal appearance, PERRL Pupil Exam: NORMAL ACCOMODATION, PERRL - ENT Exam ENT Exam: Mucous Membranes Moist, Normal Exam - Neck Exam Neck Exam: Full ROM, Normal Inspection. absent: Lymphadenopathy - Respiratory Exam Respiratory Exam: Decreased Breath Sounds - Cardiovascular Exam Cardiovascular Exam: REGULAR RHYTHM, +S1, +S2 - GI/Abdominal Exam GI & Abdominal Exam: Soft, Diminished Bowel Sounds - Rectal Exam Rectal Exam: Deferred
--- NOTE | 2017-07-05 02:50 | CP.PCM.PN ---
Subjective - Date & Time of Evaluation Date of Evaluation: 07/04/17 Time of Evaluation: 19:00 - Subjective Subjective: Has some abdominal pain post IR biopsy Objective - Vital Signs/Intake and Output Vital Signs (last 24 hours): Temp Pulse Resp BP Pulse Ox 98.3 F 77 20 125/68 96 07/05/17 00:00 07/05/17 00:00 07/05/17 00:00 07/05/17 00:00 07/05/17 00:00 Intake and Output: 07/04/17 07/05/17 18:59 06:59 Intake Total 500 Output Total 400 Balance 100 - Medications Medications: Current Medications Famotidine (Pepcid) 20 mg PO DAILY [facility] Last Admin: 07/04/17 09:19 Dose: Not Given Gemfibrozil (Lopid) 600 mg PO BID [facility] Last Admin: 07/04/17 17:28 Dose: 600 mg Hydromorphone HCl (Dilaudid) 1 mg IVP Q4H PRN PRN Reason: Pain, severe (8-10) Last Admin: 07/05/17 00:14 Dose: 1 mg Lisinopril (Zestril) 2.5 mg PO DAILY [facility] Last Admin: 07/04/17 09:19 Dose: Not Given Metoprolol Tartrate (Lopressor) 25 mg PO BID [facility] Last Admin: 07/04/17 17:29 Dose: 25 mg Rosuvastatin Calcium (Crestor) 10 mg PO HS [facility] Last Admin: 07/04/17 21:58 Dose: 10 mg Simethicone (Mylicon Chew Tab) 80 mg PO TID [facility] Last Admin: 07/04/17 17:29 Dose: 80 mg - Labs Labs: 07/04/17 06:43 07/04/17 06:43 PT 12.8 SECONDS (9.7-12.2) H 06/30/17 23:26 INR 1.1 06/30/17 23:26 APTT 30 SECONDS (21-34) 06/30/17 23:26 - Head Exam Head Exam: ATRAUMATIC - Eye Exam Eye Exam: Normal appearance - ENT Exam ENT Exam: Mucous Membranes Dry - Respiratory Exam Respiratory Exam: NORMAL BREATHING PATTERN - Cardiovascular Exam Cardiovascular Exam: +S1, +S2 - GI/Abdominal Exam GI & Abdominal Exam: Normal Bowel Sounds - Extremities Exam Extremities Exam: Normal Inspection Assessment and Plan (1) Metastatic cancer to liver Assessment & Plan: s/p IR biopsy, f/u path report tumor marker elevation noted Status: Acute (2) Anemia Assessment & Plan: anemia of chronic disease Status: Acute
[2017-07-05 08:51] LABS: BASO # 0.1 K/uL (0.0-0.2); BASO % 0.9 % (0.0-2.0); EOS # 0.3 K/uL (0.0-0.7); HEMATOCRIT 39.7 % (35.0-51.0); LYMPH # 2.5 K/uL (1.0-4.3); LYMPH % 24.5 % (20.0-40.0); MEAN CELL VOLUME 93.3 fL (80.0-94.0); MEAN CORPUSCULAR HEMOGLOBIN 32.5 pg (27.0-31.0); MEAN CORPUSCULAR HGB CONC 34.9 g/dL (33.0-37.0); MEAN PLATELET VOLUME 7.5 fL (7.2-11.7); MONO # 0.7 K/uL (0.0-0.8); MONO % 6.9 % (0.0-10.0); NRBC % 0.1 % (0.0-2.0); RED CELL DISTRIBUTION WIDTH 13.3 % (11.5-14.5)
[2017-07-05 08:59] LABS: CHLORIDE 93 mmol/L (98-107)
[2017-07-05 09:00] LABS: POTASSIUM 4.9 mmol/L (3.6-5.2); SODIUM 130 mmol/L (132-148)
[2017-07-05 09:02] LABS: CARBON DIOXIDE 21 mmol/L (22-30); GFR AFRICAN-AMERICAN > 60
[2017-07-05 09:03] LABS: ALB/GLOB RATIO 1.3 (1.0-2.1); ALKALINE PHOSPHATASE 531 U/L (38-126); ALT/SGPT 81 U/L (21-72); AST/SGOT 127 U/L (17-59); BILIRUBIN,TOTAL 1.4 mg/dL (0.2-1.3); BLOOD UREA NITROGEN 21 mg/dL (9-20); CALCIUM 10.4 mg/dl (8.6-10.4); GLUCOSE,RANDOM 102 mg/dL (75-110); TOTAL PROTEIN 8.2 g/dL (6.3-8.3)
[2017-07-05] MEDS: Simethicone 80 mg Chewtab PO SCH ×3 (09:23→17:41)
--- NOTE | 2017-07-05 10:28 | CP.PCM.PN ---
<Antonietta Alexandra - Last Filed: 07/05/17 13:39> Subjective - Date & Time of Evaluation Date of Evaluation: 07/05/17 Time of Evaluation: 09:45 - Subjective Subjective: GI Fellow PGY4 Progress Note Pt seen and evaluated at bedside, pt reports feeling better this am with decreased abdominal pain after liver biopsy. Pt denies nausea, vomiting or epigastric abdominal pain. No acute issues overnight. Pt tolerating diet. ROS: A 12pt ROS was negative except as above. Objective - Vital Signs/Intake and Output Vital Signs (last 24 hours): Temp Pulse Resp BP Pulse Ox 98.1 F 81 20 120/68 95 07/05/17 07:49 07/05/17 07:49 07/05/17 07:49 07/05/17 09:18 07/05/17 07:49 Intake and Output: 07/05/17 07/05/17 06:59 18:59 Intake Total 150 Balance 150 - Medications Medications: Current Medications Famotidine (Pepcid) 20 mg PO DAILY [facility] Last Admin: 07/05/17 09:18 Dose: 20 mg Gemfibrozil (Lopid) 600 mg PO BID [facility] Last Admin: 07/05/17 09:22 Dose: 600 mg Hydromorphone HCl (Dilaudid) 1 mg IVP Q4H PRN PRN Reason: Pain, severe (8-10) Last Admin: 07/05/17 05:19 Dose: 1 mg Lisinopril (Zestril) 2.5 mg PO DAILY [facility] Last Admin: 07/05/17 09:22 Dose: 2.5 mg Metoprolol Tartrate (Lopressor) 25 mg PO BID [facility] Last Admin: 07/05/17 09:18 Dose: 25 mg Rosuvastatin Calcium (Crestor) 10 mg PO HS [facility] Last Admin: 07/04/17 21:58 Dose: 10 mg Simethicone (Mylicon Chew Tab) 80 mg PO TID [facility] Last Admin: 07/05/17 09:23 Dose: 80 mg - Labs Labs: 07/05/17 08:36 07/05/17 08:36 PT 12.8 SECONDS (9.7-12.2) H 06/30/17 23:26 INR 1.1 06/30/17 23:26 APTT 30 SECONDS (21-34) 06/30/17 23:26 - Constitutional Appears: Non-toxic, No Acute Distress, Cachectic - Head Exam Head Exam: NORMAL INSPECTION, NORMOCEPHALIC - Eye Exam Eye Exam: EOMI, Normal appearance, PERRL Pupil Exam: PERRL - ENT Exam ENT Exam: Mucous Membranes Moist, Normal Exam - Neck Exam Neck Exam: Full ROM, Normal Inspection - Respiratory Exam Respiratory Exam: Clear to Ausculation Bilateral, NORMAL BREATHING PATTERN - Cardiovascular Exam Cardiovascular Exam: REGULAR RHYTHM, RRR, +S1, +S2 - GI/Abdominal Exam GI & Abdominal Exam: Distended, Normal Bowel Sounds, Organomegaly. absent: Tenderness - Rectal Exam Rectal Exam: Deferred - Extremities Exam Extremities Exam: Full ROM, Normal Inspection - Back Exam Back Exam: NORMAL INSPECTION - Neurological Exam Neurological Exam: Alert, Awake, Oriented x3 - Psychiatric Exam Psychiatric exam: Normal Affect, Normal Mood - Skin Skin Exam: Dry, Intact, Normal Color, Warm Assessment and Plan - Assessment and Plan (Free Text) Assessment: This is a 62M with hx of CAD, HTN, HL, and GERD who presents to the ED with complaints of RUQ pain. CT abd revealed multiple hepatic lesions, pancreatic lesions, bone mets, lung lesions. 1. Diffuse metastatic disease (pancreas, liver, bone), unknown primary origin 2. Transaminitis 3. Elevated CEA, CA19-9 4. GERD 5. ETOH use Plan: -Continue supportive care with pain control, anti-emetics -s/p IR guided liver biopsy, pathology pending of likely metastatic cancer, unknown primary -Elevated CEA and CA19-9 -Hepatitis, autoimmune panel negative -Continue to monitor LFTs, no evidence of obstructive biliary pathology -Continue diet as tolerated -Will continue to follow closely and further recommendations based on liver biopsy/pathology <Zane Lamb - Last Filed: 07/05/17 13:44> Objective - Vital Signs/Intake and Output Vital Signs (last 24 hours): Temp Pulse Resp BP Pulse Ox 98.1 F 81 20 120/68 95 07/05/17 07:49 07/05/17 07:49 07/05/17 07:49 07/05/17 09:18 07/05/17 07:49 Intake and Output: 07/05/17 07/05/17 06:59 18:59 Intake Total 150 Balance 150 - Medications Medications: Current Medications Famotidine (Pepcid) 20 mg PO DAILY [facility] Last Admin: 07/05/17 09:18 Dose: 20 mg Gemfibrozil (Lopid) 600 mg PO BID [facility] Last Admin: 07/05/17 09:22 Dose: 600 mg Hydromorphone HCl (Dilaudid) 1 mg IVP Q4H PRN PRN Reason: Pain, severe (8-10) Last Admin: 07/05/17 10:09 Dose: 1 mg Lisinopril (Zestril) 2.5 mg PO DAILY [facility] Last Admin: 07/05/17 09:22 Dose: 2.5 mg Metoprolol Tartrate (Lopressor) 25 mg PO BID [facility] Last Admin: 07/05/17 09:18 Dose: 25 mg Rosuvastatin Calcium (Crestor) 10 mg PO HS [facility] Last Admin: 07/04/17 21:58 Dose: 10 mg Simethicone (Mylicon Chew Tab) 80 mg PO TID [facility] Last Admin: 07/05/17 09:23 Dose: 80 mg - Labs Labs: 07/05/17 08:36 07/05/17 08:36 PT 12.8 SECONDS (9.7-12.2) H 06/30/17 23:26 INR 1.1 06/30/17 23:26 APTT 30 SECONDS (21-34) 06/30/17 23:26 Attending/Attestation - Attestation I have personally seen and examined this patient.: Yes I have fully participated in the care of the patient.: Yes I have reviewed all pertinent clinical information, including history, physical exam and plan: Yes Notes (Text): 07/05/17 13:43 62 year old male with h/o CAD s/p CABG who presents with abdominal pain found to have metastatic cancer unknown primary. 1. Liver metastases 2. Pancreatic mass Plan: -metastatic cancer ,unknown primary -possible pancreatic -await path from biopsy -supportive care with pain control -elevated CEA and CA19-9 noted -oncology consult appreciated -at this point, he may be able to be discharged with outpatient oncology follow up once his pain is adequately controlled -unsure how long the path will take to come back
--- NOTE | 2017-07-05 10:55 | CP.PCM.PN ---
Subjective - Date & Time of Evaluation Date of Evaluation: 07/05/17 Time of Evaluation: 10:00 - Subjective Subjective: PGY3 on medicine Dr. Mccartney service: Pt seen and examined at bedside this morning. Pt reports improved abdominal pain , controlled with medication. No acute events overnight. Objective - Vital Signs/Intake and Output Vital Signs (last 24 hours): Temp Pulse Resp BP Pulse Ox 98.1 F 81 20 120/68 95 07/05/17 07:49 07/05/17 07:49 07/05/17 07:49 07/05/17 09:18 07/05/17 07:49 Intake and Output: 07/05/17 07/05/17 06:59 18:59 Intake Total 150 Balance 150 - Medications Medications: Current Medications Famotidine (Pepcid) 20 mg PO DAILY [facility] Last Admin: 07/05/17 09:18 Dose: 20 mg Gemfibrozil (Lopid) 600 mg PO BID [facility] Last Admin: 07/05/17 09:22 Dose: 600 mg Hydromorphone HCl (Dilaudid) 1 mg IVP Q4H PRN PRN Reason: Pain, severe (8-10) Last Admin: 07/05/17 05:19 Dose: 1 mg Lisinopril (Zestril) 2.5 mg PO DAILY [facility] Last Admin: 07/05/17 09:22 Dose: 2.5 mg Metoprolol Tartrate (Lopressor) 25 mg PO BID [facility] Last Admin: 07/05/17 09:18 Dose: 25 mg Rosuvastatin Calcium (Crestor) 10 mg PO HS [facility] Last Admin: 07/04/17 21:58 Dose: 10 mg Simethicone (Mylicon Chew Tab) 80 mg PO TID [facility] Last Admin: 07/05/17 09:23 Dose: 80 mg - Labs Labs: 07/05/17 08:36 07/05/17 08:36 PT 12.8 SECONDS (9.7-12.2) H 06/30/17 23:26 INR 1.1 06/30/17 23:26 APTT 30 SECONDS (21-34) 06/30/17 23:26 - Constitutional Appears: Non-toxic, No Acute Distress, Chronically Ill - Head Exam Head Exam: NORMOCEPHALIC - Eye Exam Eye Exam: Normal appearance Pupil Exam: NORMAL ACCOMODATION - Respiratory Exam Respiratory Exam: Clear to Ausculation Bilateral, NORMAL BREATHING PATTERN. absent: Wheezes - Cardiovascular Exam Cardiovascular Exam: REGULAR RHYTHM, +S1, +S2. absent: Gallop, Rubs - GI/Abdominal Exam GI & Abdominal Exam: Soft, Tenderness (RUQ mild), Normal Bowel Sounds, Organomegaly (liver). absent: Firm, Guarding Additional comments: abdominal dressing c/d/i - Extremities Exam Extremities Exam: absent: Pedal Edema - Neurological Exam Neurological Exam: Alert, Awake, Oriented x3 - Psychiatric Exam Psychiatric exam: Normal Mood - Skin Skin Exam: Intact Assessment and Plan - Assessment and Plan (Free Text) Assessment: Metastatic Cancer - Likely Pancreatic Primary Admitted to med/surg 06/30/17 Hx of heavy ETOH CT A/P (07/01/2017): Findings compatible w/ hepatic, pancreatic, osseous metastases. Possible kidney lesion, indeterminate. Primary malignancy/mets not excluded. Pulmonary nodules, indeterminate. Metastases not excluded. (see full report) CT Chest (07/02/17): Heterogenous opacity/infiltrate at medial aspect of right upper lobe/apex may represent pneumonia. Primary lung neoplasm is less likely. Adjacent 5mm noncalcified nodule in upper lobe may represent mets. moderate right, small left pleural effusion. Cardiomegaly. Diffuse osseous mets in t- spine/sternum. S/P IR guided biopsy 07/04/17 Dr Finney, GI interior design consultant, help appreciated: Hepatitis panel negative f/u IR guided Biopsy for today Dr. Pate, IR interior design consultant, help appreciated f/u IR guided Biopsy for today Hem/Onc Consult: Dr Bae, help appreciated Recommend liver biopsy Elevated CEA, CA 19-9 Palliative care consult, Vannessa Talavera, help appreciated: - Chronically ill man not aware of his diagnosis - Family does not want patient to be told about diagnoses until the liver Bx results available Dilaudid 1mg IV Q4H PRN CAD Hx of CABG Crestor 10mg PO HS HTN Lisinopril 2.5 mg PO Daily Lopressor 25mg PO BID Hyperlipidemia Lopid 600mg PO BID Crestor 10mg PO HS GERD Pepcid 20mg PO BID Hip Pain XR Hip/Pelvis: No evidence of acute pathology Prophylaxis Pepcid 20mg PO BID Heparin 5000u SC Q8H SCDs All medical management per Dr. Mccartney
[2017-07-05 13:19] LABS: LKM-1 Ab (IgG) <=20.0 U (<=20.0)
--- NOTE | 2017-07-05 19:31 | CP.PCM.PN ---
Subjective - Date & Time of Evaluation Date of Evaluation: 07/05/17 Time of Evaluation: 07:40 - Subjective Subjective: clinically same Objective - Vital Signs/Intake and Output Vital Signs (last 24 hours): Temp Pulse Resp BP Pulse Ox 97.8 F 68 20 136/80 95 07/05/17 16:00 07/05/17 16:00 07/05/17 16:00 07/05/17 17:41 07/05/17 16:00 - Medications Medications: Current Medications Famotidine (Pepcid) 20 mg PO DAILY [facility] Last Admin: 07/05/17 09:18 Dose: 20 mg Gemfibrozil (Lopid) 600 mg PO BID [facility] Last Admin: 07/05/17 17:41 Dose: 600 mg Hydromorphone HCl (Dilaudid) 1 mg IVP Q4H PRN PRN Reason: Pain, severe (8-10) Last Admin: 07/05/17 10:09 Dose: 1 mg Lisinopril (Zestril) 2.5 mg PO DAILY [facility] Last Admin: 07/05/17 09:22 Dose: 2.5 mg Metoprolol Tartrate (Lopressor) 25 mg PO BID [facility] Last Admin: 07/05/17 17:41 Dose: 25 mg Rosuvastatin Calcium (Crestor) 10 mg PO HS [facility] Last Admin: 07/04/17 21:58 Dose: 10 mg Simethicone (Mylicon Chew Tab) 80 mg PO TID [facility] Last Admin: 07/05/17 17:41 Dose: 80 mg - Labs Labs: 07/05/17 08:36 07/05/17 08:36 PT 12.8 SECONDS (9.7-12.2) H 06/30/17 23:26 INR 1.1 06/30/17 23:26 APTT 30 SECONDS (21-34) 06/30/17 23:26
--- NOTE | 2017-07-06 07:02 | CP.PCM.PN ---
Subjective - Date & Time of Evaluation Date of Evaluation: 07/06/17 Time of Evaluation: 10:00 - Subjective Subjective: PGY3 on medicine Dr. Mccartney service: Pt seen and examined at bedside this morning. Abdominal pain controlled with medication. Pt wants to go home. Objective - Vital Signs/Intake and Output Vital Signs (last 24 hours): Temp Pulse Resp BP Pulse Ox 98.1 F 68 20 116/64 97 07/05/17 23:12 07/05/17 23:12 07/05/17 23:12 07/05/17 23:12 07/05/17 23:12 Intake and Output: 07/06/17 07/06/17 06:59 18:59 Intake Total 250 Balance 250 - Medications Medications: Current Medications Famotidine (Pepcid) 20 mg PO DAILY [facility] Last Admin: 07/05/17 09:18 Dose: 20 mg Gemfibrozil (Lopid) 600 mg PO BID [facility] Last Admin: 07/05/17 17:41 Dose: 600 mg Hydromorphone HCl (Dilaudid) 1 mg IVP Q4H PRN PRN Reason: Pain, severe (8-10) Last Admin: 07/06/17 01:19 Dose: 1 mg Lisinopril (Zestril) 2.5 mg PO DAILY [facility] Last Admin: 07/05/17 09:22 Dose: 2.5 mg Metoprolol Tartrate (Lopressor) 25 mg PO BID [facility] Last Admin: 07/05/17 17:41 Dose: 25 mg Rosuvastatin Calcium (Crestor) 10 mg PO HS [facility] Last Admin: 07/05/17 21:26 Dose: 10 mg Simethicone (Mylicon Chew Tab) 80 mg PO TID [facility] Last Admin: 07/05/17 17:41 Dose: 80 mg - Labs Labs: 07/05/17 08:36 07/05/17 08:36 PT 12.8 SECONDS (9.7-12.2) H 06/30/17 23:26 INR 1.1 06/30/17 23:26 APTT 30 SECONDS (21-34) 06/30/17 23:26 - Constitutional Appears: Non-toxic, No Acute Distress - Head Exam Head Exam: NORMOCEPHALIC - Eye Exam Eye Exam: Normal appearance - Respiratory Exam Respiratory Exam: Clear to Ausculation Bilateral, NORMAL BREATHING PATTERN. absent: Wheezes - Cardiovascular Exam Cardiovascular Exam: REGULAR RHYTHM, +S1, +S2. absent: Gallop, Rubs - GI/Abdominal Exam GI & Abdominal Exam: Tenderness, Normal Bowel Sounds, Organomegaly. absent: Distended - Neurological Exam Neurological Exam: Alert, Awake, Oriented x3 Assessment and Plan - Assessment and Plan (Free Text) Assessment: Hyponatremia Likely secondary to SIADH. Samsca 15mg PO once given. F/U CMP tomorrow. Will DC if normalized. Metastatic Cancer - Likely Pancreatic Primary Admitted to med/surg 06/30/17 Hx of heavy ETOH CT A/P (07/01/2017): Findings compatible w/ hepatic, pancreatic, osseous metastases. Possible kidney lesion, indeterminate. Primary malignancy/mets not excluded. Pulmonary nodules, indeterminate. Metastases not excluded. (see full report) CT Chest (07/02/17): Heterogenous opacity/infiltrate at medial aspect of right upper lobe/apex may represent pneumonia. Primary lung neoplasm is less likely. Adjacent 5mm noncalcified nodule in upper lobe may represent mets. moderate right, small left pleural effusion. Cardiomegaly. Diffuse osseous mets in t- spine/sternum. S/P IR guided biopsy 07/04/17 Dr Finney, GI senior talent management consultant, help appreciated: Hepatitis panel negative f/u IR guided Biopsy outpatient with Dr. Kathia Pate, IR senior talent management consultant, help appreciated f/u IR guided Biopsy outpatient with Dr. Bae Hem/Onc Consult: Dr Bae, help appreciated Recommend liver biopsy Elevated CEA, CA 19-9 Palliative care consult, Vannessa Talavera, help appreciated: - Chronically ill man not aware of his diagnosis - Family does not want patient to be told about diagnoses until the liver Bx results available Dilaudid 1mg IV Q4H PRN CAD Hx of CABG Crestor 10mg PO HS HTN Lisinopril 2.5 mg PO Daily Lopressor 25mg PO BID Hyperlipidemia Lopid 600mg PO BID Crestor 10mg PO HS GERD Pepcid 20mg PO BID Hip Pain XR Hip/Pelvis: No evidence of acute pathology Prophylaxis Pepcid 20mg PO BID Heparin 5000u SC Q8H SCDs All medical management per Dr. Mccartney
--- NOTE | 2017-07-06 07:41 | CP.PCM.PN ---
Subjective - Date & Time of Evaluation Date of Evaluation: 07/05/17 Time of Evaluation: 19:00 - Subjective Subjective: Has abdominal pain controlled with pain meds Prelim path discussed with pathologist; appears to be malignancy Family informed of prelim results; they still do not want pt to know of malignancy diagnosis Objective - Vital Signs/Intake and Output Vital Signs (last 24 hours): Temp Pulse Resp BP Pulse Ox 98.1 F 68 20 116/64 97 07/05/17 23:12 07/05/17 23:12 07/05/17 23:12 07/05/17 23:12 07/05/17 23:12 Intake and Output: 07/06/17 07/06/17 06:59 18:59 Intake Total 250 Balance 250 - Medications Medications: Current Medications Famotidine (Pepcid) 20 mg PO DAILY [facility] Last Admin: 07/05/17 09:18 Dose: 20 mg Gemfibrozil (Lopid) 600 mg PO BID [facility] Last Admin: 07/05/17 17:41 Dose: 600 mg Hydromorphone HCl (Dilaudid) 1 mg IVP Q4H PRN PRN Reason: Pain, severe (8-10) Last Admin: 07/06/17 01:19 Dose: 1 mg Lisinopril (Zestril) 2.5 mg PO DAILY [facility] Last Admin: 07/05/17 09:22 Dose: 2.5 mg Metoprolol Tartrate (Lopressor) 25 mg PO BID [facility] Last Admin: 07/05/17 17:41 Dose: 25 mg Rosuvastatin Calcium (Crestor) 10 mg PO HS [facility] Last Admin: 07/05/17 21:26 Dose: 10 mg Simethicone (Mylicon Chew Tab) 80 mg PO TID [facility] Last Admin: 07/05/17 17:41 Dose: 80 mg - Labs Labs: 07/05/17 08:36 07/05/17 08:36 PT 12.8 SECONDS (9.7-12.2) H 06/30/17 23:26 INR 1.1 06/30/17 23:26 APTT 30 SECONDS (21-34) 06/30/17 23:26 - Head Exam Head Exam: ATRAUMATIC - Eye Exam Eye Exam: Normal appearance - ENT Exam ENT Exam: Mucous Membranes Dry - Respiratory Exam Respiratory Exam: NORMAL BREATHING PATTERN - Cardiovascular Exam Cardiovascular Exam: +S1, +S2 - GI/Abdominal Exam GI & Abdominal Exam: Normal Bowel Sounds - Extremities Exam Extremities Exam: Normal Inspection Assessment and Plan (1) Metastatic cancer to liver Assessment & Plan: prelim liver biopsy results show malignancy; f/u official results. Status: Acute (2) Anemia Assessment & Plan: chronic disease Status: Acute
[2017-07-06 08:04] LABS: BASO # 0.1 K/uL (0.0-0.2); BASO % 1.4 % (0.0-2.0); EOS # 0.3 K/uL (0.0-0.7); EOS % 3.1 % (0.0-4.0); HEMATOCRIT 36.4 % (35.0-51.0); LYMPH # 1.7 K/uL (1.0-4.3); MEAN CELL VOLUME 92.6 fL (80.0-94.0); MEAN CORPUSCULAR HEMOGLOBIN 32.6 pg (27.0-31.0); MEAN CORPUSCULAR HGB CONC 35.2 g/dL (33.0-37.0); MEAN PLATELET VOLUME 7.6 fL (7.2-11.7); MONO # 0.7 K/uL (0.0-0.8); MONO % 8.2 % (0.0-10.0); RED CELL DISTRIBUTION WIDTH 13.1 % (11.5-14.5); WHITE BLOOD COUNT 8.4 K/uL (4.8-10.8)
--- NOTE | 2017-07-06 08:04 | CP.PCM.PN ---
<Lolis Asencio - Last Filed: 07/06/17 08:02> Subjective - Date & Time of Evaluation Date of Evaluation: 07/06/17 Time of Evaluation: 08:02 - Subjective Subjective: Gastroenterology Fellow/PGY5 Progress Note Patient notes abdominal pain and bloating. Tolerating diet. Denies nausea or vomiting. A 12-point review of systems was negative except for as above. Objective - Vital Signs/Intake and Output Vital Signs (last 24 hours): Temp Pulse Resp BP Pulse Ox 98.1 F 68 20 116/64 97 07/05/17 23:12 07/05/17 23:12 07/05/17 23:12 07/05/17 23:12 07/05/17 23:12 Intake and Output: 07/06/17 07/06/17 06:59 18:59 Intake Total 250 Balance 250 - Medications Medications: Current Medications Famotidine (Pepcid) 20 mg PO DAILY [facility] Last Admin: 07/05/17 09:18 Dose: 20 mg Gemfibrozil (Lopid) 600 mg PO BID [facility] Last Admin: 07/05/17 17:41 Dose: 600 mg Hydromorphone HCl (Dilaudid) 1 mg IVP Q4H PRN PRN Reason: Pain, severe (8-10) Last Admin: 07/06/17 01:19 Dose: 1 mg Lisinopril (Zestril) 2.5 mg PO DAILY [facility] Last Admin: 07/05/17 09:22 Dose: 2.5 mg Metoprolol Tartrate (Lopressor) 25 mg PO BID [facility] Last Admin: 07/05/17 17:41 Dose: 25 mg Rosuvastatin Calcium (Crestor) 10 mg PO HS [facility] Last Admin: 07/05/17 21:26 Dose: 10 mg Simethicone (Mylicon Chew Tab) 80 mg PO TID [facility] Last Admin: 07/05/17 17:41 Dose: 80 mg - Labs Labs: 07/05/17 08:36 07/05/17 08:36 PT 12.8 SECONDS (9.7-12.2) H 06/30/17 23:26 INR 1.1 06/30/17 23:26 APTT 30 SECONDS (21-34) 06/30/17 23:26 - Constitutional Appears: Non-toxic, No Acute Distress - Head Exam Head Exam: ATRAUMATIC, NORMOCEPHALIC - Eye Exam Eye Exam: EOMI, PERRL Pupil Exam: PERRL. absent: Miosis, Mydriatic - ENT Exam ENT Exam: Mucous Membranes Moist, Normal Oropharynx - Neck Exam Neck Exam: Full ROM, Normal Inspection - Respiratory Exam Respiratory Exam: Clear to Ausculation Bilateral. absent: Rales, Rhonchi, Wheezes - Cardiovascular Exam Cardiovascular Exam: RRR, +S1, +S2. absent: Gallop, Rubs - GI/Abdominal Exam GI & Abdominal Exam: Distended, Soft, Tenderness, Normal Bowel Sounds, Organomegaly. absent: Firm, Guarding, Rigid, Rebound Additional comments: hepatomegaly with nodular contour - Extremities Exam Extremities Exam: Normal Inspection. absent: Pedal Edema - Neurological Exam Neurological Exam: Alert, Awake - Psychiatric Exam Psychiatric exam: Normal Affect, Normal Mood - Skin Skin Exam: Dry, Intact, Normal Color, Warm Assessment and Plan - Assessment and Plan (Free Text) Assessment: 62 year old male with history of CAD, Hypertension, Hyperlipidemia, and GERD presenting with abdominal pain. Active treatment of metastatic neoplasm, primary unknown. CT C/A/P showed multiple hepatic, pancreas, bone, kidney, and lung lesions. Prior colonoscopy two years ago endorsed to be normal. Plan: >POD2 (07/04) right liver biopsy >pending pathology >CEA 557, [id number] >oncology managing-preliminary pathology shows malignancy >transaminitis likely 2/2 liver lesions >negative Hepatitis panel and autoimmune workup >recommend pain control >no signs of obstructive pathology >continue heart healthy diet >outpatient oncology follow up of pathology results and further treatment >Thank you for opportunity to participate in the care of this patient. Please contact with questions or concerns. <Thiago Finney - Last Filed: 07/06/17 11:47> Objective - Vital Signs/Intake and Output Vital Signs (last 24 hours): Temp Pulse Resp BP Pulse Ox 98.5 F 70 20 123/70 96 07/06/17 08:00 07/06/17 08:00 07/06/17 08:00 07/06/17 09:04 07/06/17 08:00 Intake and Output: 07/06/17 07/06/17 06:59 18:59 Intake Total 250 Balance 250 - Medications Medications: Current Medications Famotidine (Pepcid) 20 mg PO DAILY [facility] Last Admin: 07/06/17 09:04 Dose: 20 mg Gemfibrozil (Lopid) 600 mg PO BID [facility] Last Admin: 07/06/17 09:05 Dose: 600 mg Hydromorphone HCl (Dilaudid) 1 mg IVP Q4H PRN PRN Reason: Pain, severe (8-10) Last Admin: 07/06/17 09:12 Dose: 1 mg Lisinopril (Zestril) 2.5 mg PO DAILY [facility] Last Admin: 07/06/17 09:05 Dose: 2.5 mg Metoprolol Tartrate (Lopressor) 25 mg PO BID [facility] Last Admin: 07/06/17 09:04 Dose: 25 mg Rosuvastatin Calcium (Crestor) 10 mg PO HS [facility] Last Admin: 07/05/17 21:26 Dose: 10 mg Simethicone (Mylicon Chew Tab) 80 mg PO TID [facility] Last Admin: 07/06/17 09:04 Dose: 80 mg - Labs Labs: 07/06/17 07:50 07/06/17 07:50 PT 12.8 SECONDS (9.7-12.2) H 06/30/17 23:26 INR 1.1 06/30/17 23:26 APTT 30 SECONDS (21-34) 06/30/17 23:26 Attending/Attestation - Attestation I have personally seen and examined this patient.: Yes I have fully participated in the care of the patient.: Yes I have reviewed all pertinent clinical information, including history, physical exam and plan: Yes Notes (Text): 07/06/17 11:44 I have seen and examined patient with GI fellow. No acute events overnight, he is seen resting in bed comfortably. He complains of ongoing abdominal pain, particularly in RUQ but denies nausea, vomiting, fever/chills. Tolerating PO diet without difficulty. CAD HTN Hyperlipidemia Abdominal pain - evidence of diffuse metastatic disease from unknown primary source, s/p liver biopsy Transaminitis - hepatic lesions - Diet as tolerated - Awaiting liver biopsy results - Follow up oncology recommendations - Continue to monitor LFTs, no evidence of obstructive pathology - Pain control - No further planned GI intervention, will require outpatient follow up. Will sign off case, please reconsult as necessary, thank you.
[2017-07-06 08:24] LABS: CHLORIDE 90 mmol/L (98-107)
[2017-07-06 08:25] LABS: POTASSIUM 4.5 mmol/L (3.6-5.2); SODIUM 124 mmol/L (132-148)
[2017-07-06 08:27] LABS: GFR AFRICAN-AMERICAN > 60
[2017-07-06 08:28] LABS: ALB/GLOB RATIO 1.3 (1.0-2.1); ALKALINE PHOSPHATASE 469 U/L (38-126); ALT/SGPT 72 U/L (21-72); AST/SGOT 117 U/L (17-59); BILIRUBIN,TOTAL 1.1 mg/dL (0.2-1.3); BLOOD UREA NITROGEN 27 mg/dL (9-20); CALCIUM 9.7 mg/dl (8.6-10.4); CARBON DIOXIDE 22 mmol/L (22-30); GLUCOSE,RANDOM 85 mg/dL (75-110); TOTAL PROTEIN 7.6 g/dL (6.3-8.3)
[2017-07-06] MEDS: Simethicone 80 mg Chewtab PO SCH ×3 (09:04→17:54)
--- NOTE | 2017-07-06 13:34 | CP.PCM.PN ---
Subjective - Date & Time of Evaluation Date of Evaluation: 07/06/17 Time of Evaluation: 10:00 - Subjective Subjective: Patient reports increase in abdominal pain over the last few days. Objective - Vital Signs/Intake and Output Vital Signs (last 24 hours): Temp Pulse Resp BP Pulse Ox 98.5 F 70 20 123/70 96 07/06/17 08:00 07/06/17 08:00 07/06/17 08:00 07/06/17 09:04 07/06/17 08:00 Intake and Output: 07/06/17 07/06/17 06:59 18:59 Intake Total 250 Balance 250 - Medications Medications: Current Medications Famotidine (Pepcid) 20 mg PO DAILY [facility] Last Admin: 07/06/17 09:04 Dose: 20 mg Gemfibrozil (Lopid) 600 mg PO BID [facility] Last Admin: 07/06/17 09:05 Dose: 600 mg Hydromorphone HCl (Dilaudid) 1 mg IVP Q4H PRN PRN Reason: Pain, severe (8-10) Last Admin: 07/06/17 09:12 Dose: 1 mg Lisinopril (Zestril) 2.5 mg PO DAILY [facility] Last Admin: 07/06/17 09:05 Dose: 2.5 mg Metoprolol Tartrate (Lopressor) 25 mg PO BID [facility] Last Admin: 07/06/17 09:04 Dose: 25 mg Rosuvastatin Calcium (Crestor) 10 mg PO HS [facility] Last Admin: 07/05/17 21:26 Dose: 10 mg Simethicone (Mylicon Chew Tab) 80 mg PO TID [facility] Last Admin: 07/06/17 09:04 Dose: 80 mg - Labs Labs: 07/06/17 07:50 07/06/17 07:50 PT 12.8 SECONDS (9.7-12.2) H 06/30/17 23:26 INR 1.1 06/30/17 23:26 APTT 30 SECONDS (21-34) 06/30/17 23:26 - Constitutional Appears: Chronically Ill - Head Exam Head Exam: ATRAUMATIC, NORMAL INSPECTION, NORMOCEPHALIC - Eye Exam Eye Exam: EOMI, Normal appearance, PERRL Pupil Exam: NORMAL ACCOMODATION, PERRL - ENT Exam ENT Exam: Mucous Membranes Moist, Normal Exam - Respiratory Exam Respiratory Exam: Decreased Breath Sounds, NORMAL BREATHING PATTERN - Cardiovascular Exam Cardiovascular Exam: Tachycardia, REGULAR RHYTHM - GI/Abdominal Exam GI & Abdominal Exam: Distended, Firm, Diminished Bowel Sounds - Rectal Exam Rectal Exam: Deferred - Exam Exam: Scrotal Swelling - Extremities Exam Extremities Exam: Pedal Edema - Back Exam Back Exam: NORMAL INSPECTION - Neurological Exam Neuro motor strength exam: Left Upper Extremity: 3, Right Upper Extremity: 3, Left Lower Extremity: 3, Right Lower Extremity: 3 - Psychiatric Exam Psychiatric exam: Anxious, Normal Affect, Normal Mood - Skin Skin Exam: Pallor Assessment and Plan - Assessment and Plan (Free Text) Assessment: Patient seen and examined. Patient looks very sick and complaines of dull, intense abdominal pain , which has worsened over the last fwe days. Abdomen is distended and firm with hypoactive bowel sounds. Family is giving him a prune juice from home hat helps patient with moving his bowels. Last BM this morning. As per daughter Chavez, Doctor Kathia spoke to family last night and made them aware of stage IV cancer. The results on type of cancer are still pending. Plan is that patient goes home today and fallow up with Doctor Kathia's office. Family still does not want patient to know his diagnosis. I discussed the possibility of chemo and its side effects vs benefices. Family would like all possible measures implemented. They understand that chemo may have some side effects. Impression * Chronically ill man with metastatic disease, stage IV pancreas CA * Cancer related pain * Family is dealing with existential issues and responding to grief as a reaction to information * Family is overprotective over the patient and does not want him to know his diagnosis * Family is looking forward chemo Tx as the only hope Suggestion * Discharge home * Apply all measures to support life Family was given my contact info in case they would like to revisit discussion about Code status.
[2017-07-06] MEDS ORDERED: Tolvaptan 15 MG TAB PO ONE (13:50)
--- NOTE | 2017-07-06 18:51 | CP.PCM.PN ---
Subjective - Date & Time of Evaluation Date of Evaluation: 07/06/17 Time of Evaluation: 07:20 - Subjective Subjective: clinically same Objective - Vital Signs/Intake and Output Vital Signs (last 24 hours): Temp Pulse Resp BP Pulse Ox 98.2 F 73 20 118/63 98 07/06/17 15:56 07/06/17 15:56 07/06/17 15:56 07/06/17 17:53 07/06/17 15:56 Intake and Output: 07/06/17 07/06/17 06:59 18:59 Intake Total 250 Balance 250 - Medications Medications: Current Medications Famotidine (Pepcid) 20 mg PO DAILY [facility] Last Admin: 07/06/17 09:04 Dose: 20 mg Gemfibrozil (Lopid) 600 mg PO BID [facility] Last Admin: 07/06/17 17:53 Dose: 600 mg Hydromorphone HCl (Dilaudid) 1 mg IVP Q4H PRN PRN Reason: Pain, severe (8-10) Last Admin: 07/06/17 18:01 Dose: 1 mg Lisinopril (Zestril) 2.5 mg PO DAILY [facility] Last Admin: 07/06/17 09:05 Dose: 2.5 mg Metoprolol Tartrate (Lopressor) 25 mg PO BID [facility] Last Admin: 07/06/17 17:53 Dose: 25 mg Rosuvastatin Calcium (Crestor) 10 mg PO HS [facility] Last Admin: 07/05/17 21:26 Dose: 10 mg Simethicone (Mylicon Chew Tab) 80 mg PO TID [facility] Last Admin: 07/06/17 17:54 Dose: 80 mg - Labs Labs: 07/06/17 07:50 07/06/17 07:50 PT 12.8 SECONDS (9.7-12.2) H 06/30/17 23:26 INR 1.1 06/30/17 23:26 APTT 30 SECONDS (21-34) 06/30/17 23:26 - Constitutional Appears: Well - Head Exam Head Exam: ATRAUMATIC, NORMAL INSPECTION, NORMOCEPHALIC - Eye Exam Eye Exam: EOMI, Normal appearance, PERRL Pupil Exam: NORMAL ACCOMODATION, PERRL - ENT Exam ENT Exam: Mucous Membranes Moist, Normal Exam - Neck Exam Neck Exam: Full ROM, Normal Inspection. absent: Lymphadenopathy - Respiratory Exam Respiratory Exam: Decreased Breath Sounds - Cardiovascular Exam Cardiovascular Exam: REGULAR RHYTHM, +S1, +S2 - GI/Abdominal Exam GI & Abdominal Exam: Soft, Diminished Bowel Sounds - Rectal Exam Rectal Exam: Deferred
--- NOTE | 2017-07-07 07:26 | CP.PCM.PN ---
Subjective - Date & Time of Evaluation Date of Evaluation: 07/07/17 Time of Evaluation: 07:19 - Subjective Subjective: PGY2 medicine for Dr. Mccartney's service: Pt seen and examined at bedside. Nursing reports no acute events overnight. Patient found walking halls in no distress. He states his abdominal pain is well -controlled on pain regimen and denies n/v/d/c, confusion, headache, chest pain , palpitations. Objective - Vital Signs/Intake and Output Vital Signs (last 24 hours): Temp Pulse Resp BP Pulse Ox 98.1 F 73 20 125/70 97 07/06/17 23:20 07/06/17 23:20 07/06/17 23:20 07/06/17 23:20 07/06/17 23:20 Intake and Output: 07/07/17 07/07/17 06:59 18:59 Intake Total 600 Balance 600 - Medications Medications: Current Medications Famotidine (Pepcid) 20 mg PO DAILY [facility] Last Admin: 07/06/17 09:04 Dose: 20 mg Gemfibrozil (Lopid) 600 mg PO BID [facility] Last Admin: 07/06/17 17:53 Dose: 600 mg Hydromorphone HCl (Dilaudid) 1 mg IVP Q4H PRN PRN Reason: Pain, severe (8-10) Last Admin: 07/07/17 05:23 Dose: 1 mg Lisinopril (Zestril) 2.5 mg PO DAILY [facility] Last Admin: 07/06/17 09:05 Dose: 2.5 mg Metoprolol Tartrate (Lopressor) 25 mg PO BID [facility] Last Admin: 07/06/17 17:53 Dose: 25 mg Rosuvastatin Calcium (Crestor) 10 mg PO HS [facility] Last Admin: 07/06/17 21:58 Dose: 10 mg Simethicone (Mylicon Chew Tab) 80 mg PO TID [facility] Last Admin: 07/06/17 17:54 Dose: 80 mg - Labs Labs: 07/06/17 07:50 07/06/17 07:50 PT 12.8 SECONDS (9.7-12.2) H 06/30/17 23:26 INR 1.1 06/30/17 23:26 APTT 30 SECONDS (21-34) 06/30/17 23:26 - Constitutional Appears: Non-toxic, No Acute Distress - Head Exam Head Exam: ATRAUMATIC, NORMOCEPHALIC - Eye Exam Eye Exam: EOMI - ENT Exam ENT Exam: Mucous Membranes Moist - Respiratory Exam Respiratory Exam: Clear to Ausculation Bilateral, NORMAL BREATHING PATTERN. absent: Rales, Rhonchi, Wheezes - Cardiovascular Exam Cardiovascular Exam: REGULAR RHYTHM, +S1, +S2 - GI/Abdominal Exam GI & Abdominal Exam: Tenderness, Normal Bowel Sounds, Organomegaly - Extremities Exam Extremities Exam: Normal Inspection. absent: Pedal Edema - Neurological Exam Neurological Exam: Alert, Awake, Oriented x3 - Psychiatric Exam Psychiatric exam: Normal Affect, Normal Mood - Skin Skin Exam: Normal Color, Warm Assessment and Plan - Assessment and Plan (Free Text) Plan: Hyperkalemia 5.6 on AM labs Kayexalate x 1 f/u BMP @ 4pm Hyponatremia Likely secondary to SIADH. Samsca 15mg PO once given. Na 131 today, from 124 yesterday Metastatic Cancer - Likely Pancreatic Primary Admitted to med/surg 06/30/17 Hx of heavy ETOH CT A/P (07/01/2017): Findings compatible w/ hepatic, pancreatic, osseous metastases. Possible kidney lesion, indeterminate. Primary malignancy/mets not excluded. Pulmonary nodules, indeterminate. Metastases not excluded. (see full report) CT Chest (07/02/17): Heterogenous opacity/infiltrate at medial aspect of right upper lobe/apex may represent pneumonia. Primary lung neoplasm is less likely. Adjacent 5mm noncalcified nodule in upper lobe may represent mets. moderate right, small left pleural effusion. Cardiomegaly. Diffuse osseous mets in t- spine/sternum. S/P IR guided biopsy 07/04/17 Dr Finney, GI ux consultant, help appreciated: Hepatitis/autoimmune panel negative No further GI intervention, signed off f/u IR guided Biopsy outpatient with Dr. Kathia Pate, IR ux consultant, help appreciated f/u IR guided Biopsy outpatient with Dr. Bae Hem/Onc Consult: Dr Bae, help appreciated Recommend liver biopsy Elevated CEA, CA 19-9 Palliative care consult, Vannessa Talavera, alisa appreciated: - Chronically ill man not aware of his diagnosis - Family does not want patient to be told about diagnoses until the liver Bx results available Dilaudid 1mg IV Q4H PRN CAD Hx of CABG Crestor 10mg PO HS HTN Well controlled Lisinopril 2.5 mg PO Daily Lopressor 25mg PO BID Hyperlipidemia Lopid 600mg PO BID Crestor 10mg PO HS GERD Pepcid 20mg PO BID Hip Pain XR Hip/Pelvis: No evidence of acute pathology Prophylaxis Pepcid 20mg PO BID Heparin 5000u SC Q8H SCDs Heart Healthy Diet Disposition: Pt for discharge today pending repeat BMP, will receive results of biopsy as outpatient Tyrese Rascon PGY2 All medical management per Dr. Mccartney
[2017-07-07 08:02] LABS: BASO # 0.1 K/uL (0.0-0.2); BASO % 1.8 % (0.0-2.0); EOS # 0.3 K/uL (0.0-0.7); EOS % 3.4 % (0.0-4.0); LYMPH # 1.6 K/uL (1.0-4.3); MEAN CELL VOLUME 92.7 fL (80.0-94.0); MEAN CORPUSCULAR HEMOGLOBIN 31.9 pg (27.0-31.0); MEAN CORPUSCULAR HGB CONC 34.4 g/dL (33.0-37.0); MEAN PLATELET VOLUME 7.2 fL (7.2-11.7); MONO # 0.6 K/uL (0.0-0.8); MONO % 7.5 % (0.0-10.0); RED CELL DISTRIBUTION WIDTH 13.3 % (11.5-14.5); WHITE BLOOD COUNT 7.4 K/uL (4.8-10.8)
[2017-07-07 08:31] LABS: CHLORIDE 95 mmol/L (98-107); POTASSIUM 5.6 mmol/L (3.6-5.2); SODIUM 131 mmol/L (132-148)
[2017-07-07 08:32] LABS: ALB/GLOB RATIO 1.2 (1.0-2.1); ALKALINE PHOSPHATASE 526 U/L (38-126); ALT/SGPT 75 U/L (21-72); AST/SGOT 123 U/L (17-59); BLOOD UREA NITROGEN 30 mg/dL (9-20); CARBON DIOXIDE 24 mmol/L (22-30); GFR AFRICAN-AMERICAN > 60; TOTAL PROTEIN 8.3 g/dL (6.3-8.3)
[2017-07-07 08:33] LABS: CALCIUM 10.5 mg/dl (8.6-10.4); GLUCOSE,RANDOM 96 mg/dL (75-110)
[2017-07-07] MEDS: Simethicone 80 mg Chewtab PO SCH ×3 (09:24→18:36)
[2017-07-07] MEDS ORDERED: Sod Polystyrene Sulf 15 gm/60 ml Susp PO ONE (10:05)
[2017-07-07 17:01] VITALS: PULSE 76; TEMP 97.8; O2SAT 95
[2017-07-07 18:36] VITALS: BP 116/64
== END 2017-07-07 19:45 | disposition home or self-care (01) | DRG 436 ==
LOC: SUPCPDRO 22:42 → C.ER 22:42 → C.3T 07-01 02:32
PROVIDERS: ADMIT Internal Medicine Nephrology; ATTEND Internal Medicine Nephrology
PROC: 0FB03ZX Excision of Liver, Percutaneous Approach, Diagnostic (ICD-10-PCS; principal; 2017-07-04)
DX: C78.7 Secondary malignant neoplasm of liver and intrahepatic bile duct (principal); E87.1 Hypo-osmolality and hyponatremia; C80.1 Malignant (primary) neoplasm, unspecified; I10 Essential (primary) hypertension; E78.5 Hyperlipidemia, unspecified; D64.9 Anemia, unspecified; Z95.1 Presence of aortocoronary bypass graft; F17.210 Nicotine dependence, cigarettes, uncomplicated; I25.10 Atherosclerotic heart disease of native coronary artery without angina pectoris; K21.9 Gastro-esophageal reflux disease without esophagitis; R31.9 Hematuria, unspecified; K86.9 Disease of pancreas, unspecified; M17.9 Osteoarthritis of knee, unspecified

== ENCOUNTER 2017-07-21 19:14 | Inpatient (IN) | payer MEDICARE, OTHER ==
--- NOTE | 2017-07-21 20:03 | C.PDOC ---
History Of Present Illness The patient, whose PMHx includes metatatic liver cancer, presents to the ED for evaluation of persistent hiccups which began after he underwent chemotherapy yesterday. Patient was evaluated in this ED on 07/01 and was diagnosed with metastatic cancer to liver. Patient reports slight chest discomfort only when he is hiccuping. He states he is able to tolerate PO intake and denies fever, chills, cough, shortness of breath, nausea, vomiting, abdominal pain at this time. Time Seen by Provider: 07/21/17 20:03 Chief Complaint (Nursing): Shortness Of Breath History Per: Patient History/Exam Limitations: no limitations Onset/Duration Of Symptoms: Hrs Current Symptoms Are (Timing): Still Present Initiating Event: denies: Upper Respiratory Illness Quality: Other (discomfort ). denies: "Pain" Exacerbating Factor(s): denies: Coughing Current Respiratory Medications: See Home Med List Severity: None Pain Scale Rating Of: 0 Associated Symptoms: denies: Fever, Chills, Bloody Cough, Productive Cough Reports Recently: Seen In ED Recent travel outside of the [place]: No Additional History Per: Patient Past Medical History Reviewed: Historical Data, Nursing Documentation, Vital Signs Vital Signs: Last Vital Signs Temp 97.9 F 07/21/17 19:32 Pulse 69 07/22/17 02:04 Resp 15 07/22/17 02:04 BP 119/56 L 07/22/17 02:04 Pulse Ox 98 07/22/17 02:04 - Medical History PMH: Arthritis (BACK/ HIP/KNEE), Gastritis, HTN, Hyperlipidemia Surgical History: CABG - [facility] Procedures EXCISION OF LIVER, PERCUTANEOUS APPROACH, DIAGNOSTIC (07/01/17) Family History: States: Unknown Family Hx - Social History Hx Alcohol Use: No Hx Substance Use: No - Immunization History Hx Tetanus Toxoid Vaccination: No Hx Influenza Vaccination: No Hx Pneumococcal Vaccination: No Review Of Systems Constitutional: Negative for: Fever, Chills Cardiovascular: Positive for: Other (chest discomfort ) Respiratory: Negative for: Cough, Shortness of Breath Gastrointestinal: Negative for: Nausea, Vomiting, Abdominal Pain Skin: Negative for: Rash, Lesions, Jaundice, Bruising Neurological: Negative for: Weakness, Numbness Physical Exam - Physical Exam Appears: Non-toxic, No Acute Distress Skin: Warm, Dry Head: Normacephalic Eye(s): bilateral: Normal Inspection Oral Mucosa: Moist Neck: Supple Chest: Symmetrical, No Deformity, No Tenderness Cardiovascular: Rhythm Regular, No Murmur Respiratory: No Rales, No Rhonchi, No Wheezing, Other (speaking in complete sentences ) Gastrointestinal/Abdominal: Soft, No Tenderness, No Guarding, No Rebound, Other (tympanic to percussion, hepatomegaly ) Extremity: Normal ROM, Capillary Refill (less than 2 seconds ) Neurological/Psych: Oriented x3 Gait: Steady ED Course And Treatment - Laboratory Results Result Diagrams: 07/21/17 20:19 07/21/17 22:35 O2 Sat by Pulse Oximetry: 98 (on RA) Pulse Ox Interpretation: Normal Progress Note: Labs ordered and reviewed. IV Fluids administered. Critical Care Time - Critical Care Note Total Time (in mins): 30 Documented critical care: time excludes all time spent performing seperately billable procedures. Disposition Discussed With : Ko Mccartney Comment: accepted the pt onhis service and took over the care Doctor Will See Patient In The: Hospital Counseled Patient/Family Regarding: Studies Performed, Diagnosis - Disposition Disposition: HOSPITALIZED Disposition Time: 20:03 Condition: GUARDED - Clinical Impression Clinical Impression: Hyponatremia, Metastatic cancer to liver, Hepatomegaly, Hiccups - Scribe Statement The provider has reviewed the documentation as recorded by the Scribe (Marika Mccartney) Provider Attestation: All medical record entries made by the Scribe were at my direction and personally dictated by me. I have reviewed the chart and agree that the record accurately reflects my personal performance of the history, physical exam, medical decision making, and the department course for this patient. I have also personally directed, reviewed, and agree with the discharge instructions and disposition. Decision To Admit - Pt Status Changed To: Hospital Disposition Of: Inpatient - Admit Certification Admit to Inpatient:: After my assessment, the patient will require hospitalization for at least two midnights. This is because of the severity of symptoms shown, intensity of services needed, and/or the medical risk in this patient being treated as an outpatient. - InPatient: Physician Admission Certification: I certify that this patient requires 2 or more midnights of care for the following reason:: After my assessment, the patient will require hospitalization for at least two midnights. This is because of the severity of symptoms shown, intensity of services needed, and/or the medical risk in this patient being treated as an outpatient. - . Bed Request Type: Telemetry Admitting Physician: Ko Mccartney Patient Diagnosis: Hyponatremia, Metastatic cancer to liver, Hepatomegaly, Hiccups
[2017-07-21 20:26] LABS: BASO # 0.1 K/uL (0.0-0.2); BASO % 2.7 % (0.0-2.0); EOS # 0.1 K/uL (0.0-0.7); EOS % 2.5 % (0.0-4.0); HEMATOCRIT 32.3 % (35.0-51.0); LYMPH # 1.2 K/uL (1.0-4.3); LYMPH % 26.8 % (20.0-40.0); MEAN CORPUSCULAR HEMOGLOBIN 31.4 pg (27.0-31.0); MEAN CORPUSCULAR HGB CONC 34.8 g/dL (33.0-37.0); MEAN PLATELET VOLUME 7.7 fL (7.2-11.7); MONO # 0.2 K/uL (0.0-0.8); MONO % 4.5 % (0.0-10.0); NRBC % 0.1 % (0.0-2.0); RED CELL DISTRIBUTION WIDTH 12.6 % (11.5-14.5); WHITE BLOOD COUNT 4.6 K/uL (4.8-10.8)
[2017-07-21 20:30] LABS: CHLORIDE 80 mmol/L (98-107)
[2017-07-21 20:31] LABS: POTASSIUM 4.3 mmol/L (3.6-5.2)
[2017-07-21 20:32] LABS: SODIUM 111 mmol/L (132-148)
[2017-07-21 20:33] LABS: ALB/GLOB RATIO 1.6 (1.0-2.1); ALKALINE PHOSPHATASE 423 U/L (38-126); AST/SGOT 71 U/L (17-59); BLOOD UREA NITROGEN 8 mg/dL (9-20); CARBON DIOXIDE 20 mmol/L (22-30); GFR AFRICAN-AMERICAN > 60; TOTAL PROTEIN 6.2 g/dL (6.3-8.3)
[2017-07-21 20:34] LABS: ALT/SGPT 66 U/L (21-72); CALCIUM 8.1 mg/dl (8.6-10.4); GLUCOSE,RANDOM 80 mg/dL (75-110)
[2017-07-21] MEDS ORDERED: Sodium Chloride 0.9% 1,000 ML IV ONE ×2 (20:35→23:02)
[2017-07-21] MEDS ORDERED: Sodium Chloride 0.9% 1,000 ML ONE (20:42)
[2017-07-21 22:50] LABS: CHLORIDE 83 mmol/L (98-107)
[2017-07-21 22:51] LABS: POTASSIUM 4.4 mmol/L (3.6-5.2)
[2017-07-21 22:52] LABS: SODIUM 110 mmol/L (132-148)
[2017-07-21 22:54] LABS: BLOOD UREA NITROGEN 8 mg/dL (9-20); CALCIUM 7.8 mg/dl (8.6-10.4); CARBON DIOXIDE 19 mmol/L (22-30); GFR AFRICAN-AMERICAN > 60; GLUCOSE,RANDOM 91 mg/dL (75-110)
[2017-07-21] MEDS ORDERED: Sodium Chloride 3% 500 ML IV SCH (23:30)
--- NOTE | 2017-07-21 23:51 | CP.PCM.HP ---
History of Present Illness - History of Present Illness History of Present Illness: 62-year-old female with PMHmetastatic liver cancer [unknown primary], HTN, gastritis, hyperlipidemia, IHD [CABG done] presents to the ER for evaluation of persistent hiccups which began after chemotherapy yesterday. C/Ohiccups for 1 day. Following chemotherapy yesterday. C/Ochest discomfort for 1 day. Associated with hiccups. Vague, all over the chest, intensity of 2/10, occurs at rest, aggravated with hiccups. No C/Oshortness of breath, cough, fever, PND, orthopnea, hemoptysis. Present on Admission - Present on Admission Any Indicators Present on Admission: No Past Patient History - Infectious Disease Hx of Infectious Diseases: None - Past Medical History & Family History Past Medical History?: Yes - Past Social History Smoking Status: Light Smoker < 10 Cigarettes Daily - CARDIAC Hx Hypertension: Yes - PULMONARY Hx Respiratory Disorders: No - NEUROLOGICAL Hx Neurological Disorder: No Hx Paralysis: No - HEENT Hx HEENT Problems: No - RENAL Hx Chronic Kidney Disease: No - ENDOCRINE/METABOLIC Hx Endocrine Disorders: No - HEMATOLOGICAL/ONCOLOGICAL Hx Blood Disorders: No Hx Blood Transfusions: No - INTEGUMENTARY Hx Dermatological Problems: No - MUSCULOSKELETAL/RHEUMATOLOGICAL Hx Arthritis: Yes (BACK/ HIP/KNEE) - GASTROINTESTINAL Hx Gastritis: Yes - GENITOURINARY/GYNECOLOGICAL Hx Genitourinary Disorders: No - PSYCHIATRIC Hx Substance Use: No - SURGICAL HISTORY Hx Coronary Artery Bypass Graft: Yes - ANESTHESIA Hx Anesthesia: Yes Hx Anesthesia Reactions: No Hx Malignant Hyperthermia: No Meds Home Medications: Home Medication List Medication Instructions Recorded Confirmed Type Aspirin [Ecotrin] 81 mg PO DAILY #30 tabec 07/31/17 Rx Clopidogrel [Plavix] 75 mg PO DAILY #30 tab 07/31/17 Rx Demeclocycline [Declomycin] 150 mg PO BID #60 tab 07/31/17 Rx Famotidine [Pepcid] 20 mg PO DAILY #30 tab 07/31/17 Rx Metoprolol Tartrate [Lopressor] 25 mg PO BID #60 tab 07/31/17 Rx Rosuvastatin Calcium [Crestor] 10 mg PO HS #30 tab 07/31/17 Rx Tramadol HCl [Ultram] 50 mg PO Q6H #16 tablet 07/31/17 Rx chlorproMAZINE [Thorazine] 25 mg PO Q6H PRN #120 tab 07/31/17 Rx oxyCODONE [oxyCODONE Immediate 5 mg PO Q6 PRN #16 tab 07/31/17 Rx Release Tab] Allergies/Adverse Reactions: Allergies Allergy/AdvReac Type Severity Reaction Status Date / Time No Known Allergies Allergy Verified 07/21/17 19:34 Results - Vital Signs Recent Vital Signs: Last Vital Signs Temp 97.9 F 07/21/17 19:32 Pulse 71 07/21/17 23:16 Resp 16 07/21/17 23:16 BP 131/62 07/21/17 23:16 Pulse Ox 99 07/21/17 23:16 - Labs Result Diagrams: 07/31/17 13:54 07/31/17 13:54 Labs: Laboratory Results - last 24 hr 07/21/17 07/21/17 07/21/17 20:19 20:19 22:35 WBC 4.6 L RBC 3.59 L Hgb 11.3 L D Hct 32.3 L MCV 90.0 D MCH 31.4 H MCHC 34.8 RDW 12.6 Plt Count 213 D MPV 7.7 Neut % (Auto) 63.5 Lymph % (Auto) 26.8 Owen % (Auto) 4.5 Eos % (Auto) 2.5 Baso % (Auto) 2.7 H Neut # 2.9 Lymph # 1.2 Owen # 0.2 Eos # 0.1 Baso # 0.1 Sodium 111 L* 110 L* Potassium 4.3 4.4 Chloride 80 L 83 L Carbon Dioxide 20 L 19 L Anion Gap 15 12 BUN 8 L 8 L Creatinine 0.4 L 0.4 L Est GFR ( Amer) > 60 > 60 Est GFR (Non-Af Amer) > 60 > 60 Random Glucose 80 91 Calcium 8.1 L 7.8 L Total Bilirubin 1.0 AST 71 H D ALT 66 Alkaline Phosphatase 423 H Total Protein 6.2 L Albumin 3.8 Globulin 2.4 Albumin/Globulin Ratio 1.6 Lipase 542 H
--- NOTE | 2017-07-22 00:27 | CP.PCM.CON ---
History of Present Illness - History of Present Illness History of Present Illness: Attending Provider: Ko Mccartney MD Oncologist: Dr Bae Reason for Consult: Critical care management Chief Complaint: SOB/Hiccups The patient was seen and examined in the ED HPI: The hx was obtained from the Patient , his Daughter and after review of the medical records. He is a 62 years old Japanese speaking male with hx of HTN and Gastritis, last admitted on 07/01/17 and diagnosed with Metastatic liver cancer of unknown primary. He came to the ED referring severe Hiccups since after receiving Chemotherapy one day ago. He also refers SOB associated with the Hiccups and RUQ abdominal pain intermittently. No Seizures, fever, chills, Coughing, nausea, vomits, nor urinary symptoms. In the ED he was found to have Sodium of 111 and 110 when repeated. PMH: HTN; Gastritis with GERD; HLD; CAD; Metastatic liver Cancer PSH: CABG; Liver biopsy (07/01/17) SH: No illegal drug use; Light smoker; Quit Alcohol 5-10 years ago; FH: Brother with Liver cirrhosis Allergies: NKDA Medication: Reviewed Review of Systems - Constitutional Constitutional: absent: Anorexia, Chills, Fever, Headache - EENT Eyes: Requires Corrective Lenses. absent: Diplopia, Floaters Ears: absent: Decreased Hearing, Ear Discharge, Tinnitus Nose/Mouth/Throat: absent: Epistaxis, Nasal Congestion, Sinus Pain, Sinus Pressure - Cardiovascular Cardiovascular: Orthopnea. absent: Chest Pain, Dyspnea, Edema - Respiratory Respiratory: Dyspnea. absent: Cough, Wheezing, Stridor - Gastrointestinal Gastrointestinal: Diarrhea. absent: Constipation, Nausea, Vomiting - Genitourinary Genitourinary: absent: Dysuria, Flank Pain, Hematuria - Musculoskeletal Additional comments: Pain to left groin and to left leg - Integumentary Integumentary: absent: Pruritus, Rash, Skin Ulcer, Sores, Striae, Swelling - Neurological Neurological: Weakness. absent: Confusion, Dizziness, Headaches - Psychiatric Psychiatric: absent: Anxiety, Depression, Panic Attacks - Endocrine Endocrine: absent: Palpitations, Polydipsia, Polyphagia, Polyuria - Hematologic/Lymphatic Hematologic: absent: Easy Bleeding, Easy Bruising Past Patient History - Infectious Disease Hx of Infectious Diseases: None - Past Medical History & Family History Past Medical History?: Yes - Past Social History Smoking Status: Light Smoker < 10 Cigarettes Daily Chewing Tobacco Use: No Cigar Use: No Alcohol: None Drugs: Denies - CARDIAC Hx Hypercholesterolemia: Yes Hx Hypertension: Yes - PULMONARY Hx Respiratory Disorders: No - NEUROLOGICAL Hx Neurological Disorder: No Hx Paralysis: No - HEENT Hx HEENT Problems: No - RENAL Hx Chronic Kidney Disease: No - ENDOCRINE/METABOLIC Hx Endocrine Disorders: No - HEMATOLOGICAL/ONCOLOGICAL Hx Blood Disorders: No Hx Blood Transfusions: No - INTEGUMENTARY Hx Dermatological Problems: No - MUSCULOSKELETAL/RHEUMATOLOGICAL Hx Arthritis: Yes (BACK/ HIP/KNEE) - GASTROINTESTINAL Hx Gastritis: Yes - GENITOURINARY/GYNECOLOGICAL Hx Genitourinary Disorders: No - PSYCHIATRIC Hx Substance Use: No - SURGICAL HISTORY Hx Coronary Artery Bypass Graft: Yes - ANESTHESIA Hx Anesthesia: Yes Hx Anesthesia Reactions: No Hx Malignant Hyperthermia: No Meds Allergies/Adverse Reactions: Allergies Allergy/AdvReac Type Severity Reaction Status Date / Time No Known Allergies Allergy Verified 07/21/17 19:34 - Medications Medications: Current Medications Aspirin (Ecotrin) 81 mg PO DAILY [facility] Clopidogrel Bisulfate (Plavix) 75 mg PO DAILY [facility] Enoxaparin Sodium (Lovenox) 30 mg SC 1000,2200 [facility] Famotidine (Pepcid) 20 mg PO DAILY [facility] Gemfibrozil (Lopid) 600 mg PO BID [facility] Sodium Chloride (Hypertonic Saline 3%) 500 mls @ 28 mls/hr IV .[id number] [facility] Lisinopril (Zestril) 2.5 mg PO DAILY [facility] Metoprolol Tartrate (Lopressor) 25 mg PO BID [facility] Rosuvastatin Calcium (Crestor) 10 mg PO HS [facility] Physical Exam - Constitutional Appears: No Acute Distress - Head Exam Head Exam: ATRAUMATIC, NORMAL INSPECTION, NORMOCEPHALIC - Eye Exam Eye Exam: EOMI, Normal appearance Pupil Exam: NORMAL ACCOMODATION, PERRL - ENT Exam ENT Exam: Mucous Membranes Moist, Normal Exam, Normal External Ear Exam - Neck Exam Neck exam: Positive for: Full Rom, Normal Inspection. Negative for: Lymphadenopathy, Tenderness - Respiratory Exam Respiratory Exam: Clear to Auscultation Bilateral. absent: Rales, Rhonchi, Wheezes - Cardiovascular Exam Cardiovascular Exam: REGULAR RHYTHM, RRR, +S1, +S2. absent: Gallop, JVD - GI/Abdominal Exam Additional comments: Soft, flat, tender at RUQ, liver 4 finger breaths below the right costal margin , no rebound tenderness nor guarding. - Rectal Exam Rectal Exam: Deferred - Extremities Exam Additional comments: ROM intact, no edema, Pain to the left calf muscle on palpation. - Back Exam Back exam: NORMAL INSPECTION. absent: CVA tenderness (L), CVA tenderness (R) - Neurological Exam Neurological exam: Alert, CN II-XII Intact, Oriented x3, Reflexes Normal - Psychiatric Exam Psychiatric exam: Normal Affect, Normal Mood - Skin Skin Exam: Dry, Intact, Normal Color, Warm Results - Vital Signs Recent Vital Signs: Last Vital Signs Temp 97.9 F 07/21/17 19:32 Pulse 71 07/21/17 23:16 Resp 16 07/21/17 23:16 BP 131/62 07/21/17 23:16 Pulse Ox 99 07/21/17 23:16 - Labs Result Diagrams: 07/21/17 20:19 07/21/17 22:35 Labs: Laboratory Results - last 24 hr 07/21/17 07/21/17 07/21/17 20:19 20:19 22:35 WBC 4.6 L RBC 3.59 L Hgb 11.3 L D Hct 32.3 L MCV 90.0 D MCH 31.4 H MCHC 34.8 RDW 12.6 Plt Count 213 D MPV 7.7 Neut % (Auto) 63.5 Lymph % (Auto) 26.8 Sebastian % (Auto) 4.5 Eos % (Auto) 2.5 Baso % (Auto) 2.7 H Neut # 2.9 Lymph # 1.2 Sebastian # 0.2 Eos # 0.1 Baso # 0.1 Sodium 111 L* 110 L* Potassium 4.3 4.4 Chloride 80 L 83 L Carbon Dioxide 20 L 19 L Anion Gap 15 12 BUN 8 L 8 L Creatinine 0.4 L 0.4 L Est GFR ( Amer) > 60 > 60 Est GFR (Non-Af Amer) > 60 > 60 Random Glucose 80 91 Calcium 8.1 L 7.8 L Total Bilirubin 1.0 AST 71 H D ALT 66 Alkaline Phosphatase 423 H Total Protein 6.2 L Albumin 3.8 Globulin 2.4 Albumin/Globulin Ratio 1.6 Lipase 542 H Assessment & Plan - Assessment and Plan (Free Text) Assessment: #. Severe Hyponatremia #. Metastatic Liver Cancer #. Hiccups #. Anemia #. CAD s/p CABG Plan: 62 years old Japanese speaking male with hx of HTN and Gastritis, last admitted on 07/01/17 and diagnosed with Metastatic liver cancer of unknown primary. He came to the ED referring severe Hiccups since after receiving Chemotherapy one day ago. In the ED he was found to have Sodium of 111 and 110 when repeated. #. 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 Patient has no symptoms at present - Admit to ICU for close monitoring - Serum and urine Osmolality - Urine Sodium - Uric acid - Lipid profile - TSH - Total of 2 liters of Normal saling given to restore intravascular volume as patient referred that he was not drinking much liquid - 3% Saline start at 0.5mls/kg/hr - BMP q2hrs #. Metastatic Liver Cancer - Consult Dr Bae Oncologist - Oncological management #. Hiccups - Thorazine #. Anemia of malignancy - Follow Hb transfuse if <7g #. CAD s/p CABG - ASA/ Plavix/Crestor - Gastritis: #. DVT Prophylaxis with Lovenox #. Code Status: Full - Date & Time Date: 07/21/17 Time: 11:30
--- NOTE | 2017-07-22 00:31 | PCM.PROC ---
Procedures Attestation:: I certify that I have explained the specified Operation(s) or Procedure(s), risks, benefits and reasonable alternatives to the Patient and/or other person responsible. The opportunity was given to ask questions and all questions answered - Central Line Placement Internal Jugular Aseptic technique was employed throughout the procedure: Hand Hygiene done prior to procedure, Full sterile barriers (mask, hair cover, sterile gown, sterile gloves), Full body sterile drape, Chloraprep Antiseptic: 30 second prep for IJ or SC sites CVP Time Out Performed: Yes Pt. Placed on Pulse Ox Monitor: Yes Central Line Prep: Chlorhexidine-Alcohol Combination Local Anesthesia Used: Lidocaine 1% Amount of Anesthesia Used (mls): 4 Ultrasound Used for Placement: Yes Central Line Lumen Inserted: triple Post Procedure: Sutured in Place, Good Blood Return, All Ports Aspirated, Flushed, Capped, Sterile Dressing Applied Secured by: Suture Post procedure dressing: Clear vapor permeable Post Procedure X-Ray: Yes Patient Tolerated Procedure: Well, No Complications Immediate Complications: None
[2017-07-22] MEDS: Sodium Chloride 3% 500 ML IV SCH ×2 (01:46→18:35)
[2017-07-22 02:35] VITALS: BMI 25.9
[2017-07-22 04:25] LABS: CHLORIDE 87 mmol/L (98-107)
[2017-07-22 04:28] LABS: CARBON DIOXIDE 19 mmol/L (22-30); GFR AFRICAN-AMERICAN > 60
[2017-07-22 04:29] LABS: BLOOD UREA NITROGEN 8 mg/dL (9-20); GLUCOSE,RANDOM 71 mg/dL (75-110)
[2017-07-22 04:38] LABS: SODIUM 113 mmol/L (132-148)
[2017-07-22] MEDS ORDERED: oxyCODONE 5 mg Immediate Release Tab PO STA (04:38)
--- NOTE | 2017-07-22 08:49 | RAD ---
HISTORY: s/p tlc right jugular COMPARISON: CT chest with contrast performed 07/02/17 TECHNIQUE: Chest, one view. FINDINGS: Right IJ approach central venous catheter extends to the SVC. LUNGS: Bilateral interstitial prominence may reflect infection or edema. Right hilar/ infrahilar opacities may reflect infection. Please note that chest x-ray has limited sensitivity for the detection of pulmonary masses. PLEURA: No significant pleural effusion identified. No definite pneumothorax . CARDIOVASCULAR: Cardiomegaly. Median sternotomy wires with evidence of CABG. OSSEOUS STRUCTURES: Degenerative changes. VISUALIZED UPPER ABDOMEN: Elevation of the right hemidiaphragm. OTHER FINDINGS: None. IMPRESSION: Right IJ approach central venous catheter extends to the SVC. Bilateral interstitial prominence may reflect infection or edema. Right hilar/ infrahilar opacities may reflect infection. Cardiomegaly. Median sternotomy wires with evidence of CABG.
[2017-07-22 09:01] LABS: CHLORIDE 87 mmol/L (98-107); POTASSIUM 3.8 mmol/L (3.6-5.2)
[2017-07-22 09:04] LABS: BLOOD UREA NITROGEN 7 mg/dL (9-20); CARBON DIOXIDE 18 mmol/L (22-30); CHOLESTEROL 109 mg/dL (0-199); GFR AFRICAN-AMERICAN > 60; GLUCOSE,RANDOM 123 mg/dL (75-110)
[2017-07-22 09:05] LABS: CALCIUM 7.9 mg/dl (8.6-10.4); MAGNESIUM 1.5 mg/dL (1.6-2.3); PHOSPHOROUS 2.6 mg/dL (2.5-4.5)
[2017-07-22] MEDS: Enoxaparin 30 mg Syringe SC SCH ×2 (09:08→22:11)
[2017-07-22] MEDS: oxyCODONE 5 mg Immediate Release Tab PO PRN (09:09)
[2017-07-22 09:14] LABS: SODIUM 114 mmol/L (132-148)
[2017-07-22 09:35] LABS: THYROID STIMULATING HORMONE 2.83 mIU/L (0.46-4.68)
[2017-07-22 13:50] LABS: CHLORIDE 89 mmol/L (98-107); POTASSIUM 3.7 mmol/L (3.6-5.2)
[2017-07-22 13:53] LABS: CARBON DIOXIDE 20 mmol/L (22-30); GFR AFRICAN-AMERICAN > 60
[2017-07-22 13:54] LABS: BLOOD UREA NITROGEN 7 mg/dL (9-20); GLUCOSE,RANDOM 122 mg/dL (75-110)
[2017-07-22 14:05] LABS: SODIUM 116 mmol/L (132-148)
--- NOTE | 2017-07-22 15:59 | CP.PCM.PN ---
Subjective - Date & Time of Evaluation Date of Evaluation: 07/22/17 Time of Evaluation: 21:30 - Subjective Subjective: clinically same. Objective - Vital Signs/Intake and Output Vital Signs (last 24 hours): Temp Pulse Resp BP Pulse Ox 97.2 F L 68 14 109/72 100 07/22/17 12:00 07/22/17 15:04 07/22/17 15:04 07/22/17 15:04 07/22/17 15:04 Intake and Output: 07/22/17 07/22/17 06:59 18:59 Intake Total 500 602 Output Total 1300 600 Balance -800 2 - Medications Medications: Current Medications Aspirin (Ecotrin) 81 mg PO DAILY [facility] Last Admin: 07/22/17 09:06 Dose: 81 mg Chlorpromazine (Thorazine) 25 mg PO Q6H PRN PRN Reason: Hiccups Clopidogrel Bisulfate (Plavix) 75 mg PO DAILY [facility] Last Admin: 07/22/17 09:08 Dose: 75 mg Enoxaparin Sodium (Lovenox) 30 mg SC 1000,2200 [facility] Last Admin: 07/22/17 09:08 Dose: 30 mg Famotidine (Pepcid) 20 mg PO DAILY [facility] Last Admin: 07/22/17 09:07 Dose: 20 mg Sodium Chloride (Hypertonic Saline 3%) 500 mls @ 28 mls/hr IV .[id number] [facility] Last Admin: 07/22/17 01:46 Dose: 28 mls/hr Metoprolol Tartrate (Lopressor) 25 mg PO BID [facility] Last Admin: 07/22/17 09:13 Dose: Not Given Oxycodone HCl (Oxycodone Immediate Release Tab) 5 mg PO Q6 PRN PRN Reason: Pain, severe (8-10) Last Admin: 07/22/17 09:09 Dose: 5 mg Rosuvastatin Calcium (Crestor) 10 mg PO HS [facility] Tramadol HCl (Ultram) 50 mg PO Q6H PRN PRN Reason: Pain, moderate (4-7) - Labs Labs: 07/21/17 20:19 07/22/17 13:37 - Constitutional Appears: Well - Head Exam Head Exam: ATRAUMATIC, NORMAL INSPECTION, NORMOCEPHALIC - Eye Exam Eye Exam: EOMI, Normal appearance, PERRL Pupil Exam: NORMAL ACCOMODATION, PERRL - ENT Exam ENT Exam: Mucous Membranes Moist, Normal Exam - Neck Exam Neck Exam: Full ROM, Normal Inspection. absent: Lymphadenopathy - Respiratory Exam Respiratory Exam: Decreased Breath Sounds - Cardiovascular Exam Cardiovascular Exam: REGULAR RHYTHM, +S1, +S2. absent: Murmur - GI/Abdominal Exam GI & Abdominal Exam: Soft, Normal Bowel Sounds. absent: Tenderness - Rectal Exam Rectal Exam: Deferred Assessment and Plan (1) Hepatomegaly Status: Acute (2) Hiccups Status: Acute (3) Hyponatremia Status: Acute (4) Intractable hiccups Status: Acute (5) Leukopenia Status: Acute (6) Metastatic cancer to liver Status: Acute (7) Small cell lung cancer Status: Acute (8) Thrombocytopenia Status: Acute (9) Abdominal pain Status: Acute (10) Anemia Status: Acute - Assessment and Plan (Free Text) Plan: Patient examined. EKG suggestive of sinus rhythm with first-degree AV block. Chest x-ray suggestive of bilateral interstitial prominence which may reflect infection or edema. Right heel ulcer and infrahilar opacities present. Cardiomegaly. Central line tube inserted in the IJV. Continue aspirin, clopidogrel, enoxaparin, supportive medications.
[2017-07-22 16:25] LABS: CHLORIDE 87 mmol/L (98-107); POTASSIUM 3.8 mmol/L (3.6-5.2)
[2017-07-22 16:28] LABS: BLOOD UREA NITROGEN 8 mg/dL (9-20); CARBON DIOXIDE 21 mmol/L (22-30); GFR AFRICAN-AMERICAN > 60
[2017-07-22 16:29] LABS: GLUCOSE,RANDOM 73 mg/dL (75-110)
[2017-07-22 16:43] LABS: SODIUM 117 mmol/L (132-148)
--- NOTE | 2017-07-22 19:03 | CP.PCM.CON ---
History of Present Illness - History of Present Illness History of Present Illness: 62 year old male with a history of HTN, GERD, HL, CAD s/p CABG, stage IV small cell lung cancer with liver metastasis recently started on chemotherapy, admitted with intractable hiccups, found to be hyponatremic. The patient reports to intractable hiccups since starting chemotherapy. He notes that his antiemetic medication have not helped. He is not eating and drinking well. Past medical history: HTN, GERD, HL, CAD s/p CABG. Past surgical history: Denies. Family history: Denies hematologic and oncologic problems Social histoy: smokes 2 cigs daily x 50 years, former alcohol abuse. Allergies: NKA Review of systems: All remaining review of systems including HEENT, cardiovascular, respiratory, gastrointestinal, genitourinary, musculoskeletal, dermatologic, neurologic, and psychiatric are negative unless mentioned in the HPI. Past Patient History - Infectious Disease Hx of Infectious Diseases: None - Past Medical History & Family History Past Medical History?: Yes - Past Social History Smoking Status: Light Smoker < 10 Cigarettes Daily Chewing Tobacco Use: No Cigar Use: No Alcohol: None Drugs: Denies - CARDIAC Hx Hypertension: Yes - PULMONARY Hx Respiratory Disorders: No - NEUROLOGICAL Hx Neurological Disorder: No Hx Paralysis: No - HEENT Hx HEENT Problems: No - RENAL Hx Chronic Kidney Disease: No - ENDOCRINE/METABOLIC Hx Endocrine Disorders: No - HEMATOLOGICAL/ONCOLOGICAL Hx Blood Disorders: No Hx Blood Transfusions: No - INTEGUMENTARY Hx Dermatological Problems: No - MUSCULOSKELETAL/RHEUMATOLOGICAL Hx Arthritis: Yes (BACK/ HIP/KNEE) - GASTROINTESTINAL Hx Gastritis: Yes - GENITOURINARY/GYNECOLOGICAL Hx Genitourinary Disorders: No - PSYCHIATRIC Hx Substance Use: No - SURGICAL HISTORY Hx Coronary Artery Bypass Graft: Yes - ANESTHESIA Hx Anesthesia: Yes Hx Anesthesia Reactions: No Hx Malignant Hyperthermia: No Meds Allergies/Adverse Reactions: Allergies Allergy/AdvReac Type Severity Reaction Status Date / Time No Known Allergies Allergy Verified 07/21/17 19:34 - Medications Medications: Current Medications Aspirin (Ecotrin) 81 mg PO DAILY [facility] [place] Last Admin: 07/22/17 09:06 Dose: 81 mg Chlorpromazine (Thorazine) 25 mg PO Q6H PRN PRN Reason: Hiccups Clopidogrel Bisulfate (Plavix) 75 mg PO DAILY [facility] [place] Last Admin: 07/22/17 09:08 Dose: 75 mg Enoxaparin Sodium (Lovenox) 30 mg SC 1000,2200 [facility] [place] Last Admin: 07/22/17 09:08 Dose: 30 mg Famotidine (Pepcid) 20 mg PO DAILY [facility] [place] Last Admin: 07/22/17 09:07 Dose: 20 mg Sodium Chloride (Hypertonic Saline 3%) 500 mls @ 28 mls/hr IV .[id number] [facility] [place] Last Admin: 07/22/17 18:35 Dose: Not Given Metoprolol Tartrate (Lopressor) 25 mg PO BID [facility] [place] Last Admin: 07/22/17 18:34 Dose: Not Given Oxycodone HCl (Oxycodone Immediate Release Tab) 5 mg PO Q6 PRN PRN Reason: Pain, severe (8-10) Last Admin: 07/22/17 09:09 Dose: 5 mg Rosuvastatin Calcium (Crestor) 10 mg PO [facility] Tramadol HCl (Ultram) 50 mg PO Q6H PRN PRN Reason: Pain, moderate (4-7) Physical Exam - Head Exam Head Exam: ATRAUMATIC - Eye Exam Eye Exam: Normal appearance - ENT Exam ENT Exam: Mucous Membranes Dry - Respiratory Exam Respiratory Exam: NORMAL BREATHING PATTERN - Cardiovascular Exam Cardiovascular Exam: +S1, +S2 - GI/Abdominal Exam GI & Abdominal Exam: Normal Bowel Sounds - Extremities Exam Extremities exam: Positive for: normal inspection - Neurological Exam Neurological exam: Oriented x3 - Psychiatric Exam Psychiatric exam: Normal Affect, Normal Mood - Skin Skin Exam: Warm Results - Vital Signs Recent Vital Signs: Last Vital Signs Temp 97.2 F L 07/22/17 12:00 Pulse 68 07/22/17 15:04 Resp 14 07/22/17 15:04 BP 119/54 L 07/22/17 18:34 Pulse Ox 100 07/22/17 15:04 - Labs Result Diagrams: 07/21/17 20:19 07/22/17 16:08 Labs: Laboratory Results - last 24 hr 07/21/17 07/21/17 07/21/17 20:19 20:19 22:35 WBC 4.6 L RBC 3.59 L Hgb 11.3 L D Hct 32.3 L MCV 90.0 D MCH 31.4 H MCHC 34.8 RDW 12.6 Plt Count 213 D MPV 7.7 Neut % (Auto) 63.5 Lymph % (Auto) 26.8 Robeson % (Auto) 4.5 Eos % (Auto) 2.5 Baso % (Auto) 2.7 H Neut # 2.9 Lymph # 1.2 Robeson # 0.2 Eos # 0.1 Baso # 0.1 Sodium 111 L* 110 L* Potassium 4.3 4.4 Chloride 80 L 83 L Carbon Dioxide 20 L 19 L Anion Gap 15 12 BUN 8 L 8 L Creatinine 0.4 L 0.4 L Est GFR ( Amer) > 60 > 60 Est GFR (Non-Af Amer) > 60 > 60 Random Glucose 80 91 Serum Osmolality Calcium 8.1 L 7.8 L Phosphorus Magnesium Total Bilirubin 1.0 AST 71 H D ALT 66 Alkaline Phosphatase 423 H Total Protein 6.2 L Albumin 3.8 Globulin 2.4 Albumin/Globulin Ratio 1.6 Triglycerides Cholesterol LDL Cholesterol Direct HDL Cholesterol Lipase 542 H TSH 3rd Generation Urine Osmolality Ur Random Sodium 07/22/17 07/22/17 07/22/17 01:29 01:29 04:07 WBC RBC Hgb Hct MCV MCH MCHC RDW Plt Count MPV Neut % (Auto) Lymph % (Auto) Robeson % (Auto) Eos % (Auto) Baso % (Auto) Neut # Lymph # Robeson # Eos # Baso # Sodium Potassium Chloride Carbon Dioxide Anion Gap BUN Creatinine Est GFR ( Amer) Est GFR (Non-Af Amer) Random Glucose Serum Osmolality 241 L Calcium Phosphorus Magnesium Total Bilirubin AST ALT Alkaline Phosphatase Total Protein Albumin Globulin Albumin/Globulin Ratio Triglycerides Cholesterol LDL Cholesterol Direct HDL Cholesterol Lipase TSH 3rd Generation Urine Osmolality 320 Ur Random Sodium 76 07/22/17 07/22/17 07/22/17 04:07 08:46 13:37 WBC RBC Hgb Hct MCV MCH MCHC RDW Plt Count MPV Neut % (Auto) Lymph % (Auto) Robeson % (Auto) Eos % (Auto) Baso % (Auto) Neut # Lymph # Robeson # Eos # Baso # Sodium 113 L* 114 L* 116 L* Potassium 4.0 3.8 3.7 Chloride 87 L 87 L 89 L Carbon Dioxide 19 L 18 L 20 L Anion Gap 11 13 11 BUN 8 L 7 L 7 L Creatinine 0.3 L 0.4 L 0.4 L Est GFR ( Amer) > 60 > 60 > 60 Est GFR (Non-Af Amer) > 60 > 60 > 60 Random Glucose 71 L 123 H 122 H Serum Osmolality Calcium 8.0 L 7.9 L 8.0 L Phosphorus 2.6 Magnesium 1.5 L Total Bilirubin AST ALT Alkaline Phosphatase Total Protein Albumin Globulin Albumin/Globulin Ratio Triglycerides 89 Cholesterol 109 LDL Cholesterol Direct 39 HDL Cholesterol 55 Lipase TSH 3rd Generation 2.83 Urine Osmolality Ur Random Sodium 07/22/17 16:08 WBC RBC Hgb Hct MCV MCH MCHC RDW Plt Count MPV Neut % (Auto) Lymph % (Auto) Robeson % (Auto) Eos % (Auto) Baso % (Auto) Neut # Lymph # Robeson # Eos # Baso # Sodium 117 L* Potassium 3.8 Chloride 87 L Carbon Dioxide 21 L Anion Gap 13 BUN 8 L Creatinine 0.4 L Est GFR ( Amer) > 60 Est GFR (Non-Af Amer) > 60 Random Glucose 73 L Serum Osmolality Calcium 8.0 L Phosphorus Magnesium Total Bilirubin AST ALT Alkaline Phosphatase Total Protein Albumin Globulin Albumin/Globulin Ratio Triglycerides Cholesterol LDL Cholesterol Direct HDL Cholesterol Lipase TSH 3rd Generation Urine Osmolality Ur Random Sodium Assessment & Plan (1) Intractable hiccups Assessment and Plan: started on Thorazine Status: Acute (2) Anemia Assessment and Plan: mild anemia of chemotherapy anemia of chronic disease Status: Acute (3) Leukopenia Assessment and Plan: mild cont. to monitor Status: Acute (4) Small cell lung cancer Assessment and Plan: stage IV with liver metastasis recently started chemotherapy outpatient f/u Thank you for this interesting consult. Status: Acute
[2017-07-22] MEDS ORDERED: Tolvaptan 15 MG TAB PO ONE (20:00)
[2017-07-22 20:50] LABS: CHLORIDE 91 mmol/L (98-107); POTASSIUM 3.8 mmol/L (3.6-5.2)
[2017-07-22 20:53] LABS: BLOOD UREA NITROGEN 10 mg/dL (9-20); CALCIUM 8.5 mg/dl (8.6-10.4); CARBON DIOXIDE 20 mmol/L (22-30); GFR AFRICAN-AMERICAN > 60; GLUCOSE,RANDOM 100 mg/dL (75-110)
[2017-07-22 20:54] LABS: SODIUM 119 mmol/L (132-148)
[2017-07-22] MEDS ORDERED: Sodium Chloride 3% 500 ML IV SCH (22:03)
--- NOTE | 2017-07-22 22:03 | CP.CCUPN ---
CCU Subjective - Physician Review Events Since Last Encounter (Free Text): 07/22/17 22:02 62 year old male with a history of HTN, GERD, HL, CAD s/p CABG, stage IV small cell lung cancer with liver metastasis recently started on chemotherapy, admitted with intractable hiccups, found to be hyponatremic. The patient reports to intractable hiccups since starting chemotherapy. He notes that his antiemetic medication have not helped. He is not eating and drinking well. Past medical history: HTN, GERD, HL, CAD s/p CABG. Past surgical history: Denies. Family history: Denies hematologic and oncologic problems Social histoy: smokes 2 cigs daily x 50 years, former alcohol abuse. Allergies: NKA Review of systems: All remaining review of systems including HEENT, cardiovascular, respiratory, gastrointestinal, genitourinary, musculoskeletal, dermatologic, neurologic, and psychiatric are negative unless mentioned in the HPI. Critical Care Time Spent (in minutes): 45 CCU Objective - Vital Signs / Intake & Output Vital Signs (Last 4 hours): Vital Signs Temp Pulse Resp BP Pulse Ox 07/22/17 20:05 77 16 120/51 L 100 07/22/17 20:00 98.3 F 07/22/17 19:04 74 18 118/50 L 99 07/22/17 18:34 77 18 119/54 L 99 Intake and Output (Last 8hrs): Intake & Output 07/22/17 07/22/17 07/22/17 06:59 14:59 22:59 Intake Total 500 574 168 Output Total 1300 600 550 Balance -800 -26 -382 Weight 60 lb 4.8 oz Intake: Intake, IV Amount 140 224 168 Right Proximal Port 140 224 168 Internal Jugular Oral 360 350 Output: Urine 1300 600 550 Urine, Voided 1300 600 550 Other: Voiding Method Urinal # Voids Urine, Voided 1 - Physical Exam Narrative Physical Exam (Free Text): 07/22/17 22:02 Vital signs reviewed No neck vein distention noted Chest good air entry bilaterally, no wheezing or rales noted CVS regular heart sound, no murmur noted Abdomen soft, nontender. Extremities no pedal edema [employer] alert awake oriented -3, no functional neurological deficit - Medications Active Medications: Active Medications Generic Name Dose Route Start Last Admin Trade Name Freq PRN Reason Stop Dose Admin Aspirin 81 mg 07/22/17 10:00 07/22/17 09:06 Ecotrin PO 81 mg DAILY AWILDA Administration Chlorpromazine 25 mg 07/22/17 01:36 Thorazine PO Q6H PRN Hiccups Clopidogrel Bisulfate 75 mg 07/22/17 10:00 07/22/17 09:08 Plavix PO 75 mg DAILY AWILDA Administration Enoxaparin Sodium 30 mg 07/22/17 10:00 07/22/17 09:08 Lovenox SC 30 mg 1000,2200 AWILDA Administration Famotidine 20 mg 07/22/17 10:00 07/22/17 09:07 Pepcid PO 20 mg DAILY AWILDA Administration Sodium Chloride 500 mls @ 28 mls/hr 07/21/17 23:30 07/22/17 18:35 Hypertonic Saline 3% IV Not Given .[id number] [facility] Metoprolol Tartrate 25 mg 07/22/17 10:00 07/22/17 18:34 Lopressor PO Not Given BID AWILDA Oxycodone HCl 5 mg 07/22/17 04:37 07/22/17 09:09 Oxycodone Immediate Release Tab PO 5 mg Q6 PRN Administration Pain, severe (8-10) Rosuvastatin Calcium 10 mg 07/22/17 22:00 Crestor PO HS AWILDA Tramadol HCl 50 mg 07/22/17 04:37 Ultram PO Q6H PRN Pain, moderate (4-7) - Patient Studies Lab Studies: Lab Studies 07/22/17 07/22/17 07/22/17 Range/Units 20:28 16:08 13:37 Sodium 119 L* 117 L* 116 L* (132-148) mmol/L Potassium 3.8 3.8 3.7 (3.6-5.2) mmol/L Chloride 91 L 87 L 89 L (98-107) mmol/L Carbon Dioxide 20 L 21 L 20 L (22-30) mmol/L Anion Gap 12 13 11 (10-20) BUN 10 8 L 7 L (9-20) mg/dL Creatinine 0.5 L 0.4 L 0.4 L (0.8-1.5) mg/dL Est GFR ( Amer) > 60 > 60 > 60 Est GFR (Non-Af Amer) > 60 > 60 > 60 Random Glucose 100 73 L 122 H (75-110) mg/dL Serum Osmolality (272-300) mosm/kg Calcium 8.5 L 8.0 L 8.0 L (8.6-10.4) mg/dl Phosphorus (2.5-4.5) mg/dL Magnesium (1.6-2.3) mg/dL Triglycerides (0-149) mg/dL Cholesterol (0-199) mg/dL LDL Cholesterol Direct (0-129) mg/dL HDL Cholesterol (30-70) mg/dL TSH 3rd Generation (0.46-4.68) mIU/L Urine Osmolality (300-1000) mosm/kg Ur Random Sodium mmol/L 07/22/17 07/22/17 07/22/17 Range/Units 08:46 04:07 04:07 Sodium 114 L* 113 L* (132-148) mmol/L Potassium 3.8 4.0 (3.6-5.2) mmol/L Chloride 87 L 87 L (98-107) mmol/L Carbon Dioxide 18 L 19 L (22-30) mmol/L Anion Gap 13 11 (10-20) BUN 7 L 8 L (9-20) mg/dL Creatinine 0.4 L 0.3 L (0.8-1.5) mg/dL Est GFR ( Amer) > 60 > 60 Est GFR (Non-Af Amer) > 60 > 60 Random Glucose 123 H 71 L (75-110) mg/dL Serum Osmolality 241 L (272-300) mosm/kg Calcium 7.9 L 8.0 L (8.6-10.4) mg/dl Phosphorus 2.6 (2.5-4.5) mg/dL Magnesium 1.5 L (1.6-2.3) mg/dL Triglycerides 89 (0-149) mg/dL Cholesterol 109 (0-199) mg/dL LDL Cholesterol Direct 39 (0-129) mg/dL HDL Cholesterol 55 (30-70) mg/dL TSH 3rd Generation 2.83 (0.46-4.68) mIU/L Urine Osmolality (300-1000) mosm/kg Ur Random Sodium mmol/L 07/22/17 07/22/17 07/21/17 Range/Units 01:29 01:29 22:35 Sodium 110 L* (132-148) mmol/L Potassium 4.4 (3.6-5.2) mmol/L Chloride 83 L (98-107) mmol/L Carbon Dioxide 19 L (22-30) mmol/L Anion Gap 12 (10-20) BUN 8 L (9-20) mg/dL Creatinine 0.4 L (0.8-1.5) mg/dL Est GFR ( Amer) > 60 Est GFR (Non-Af Amer) > 60 Random Glucose 91 (75-110) mg/dL Serum Osmolality (272-300) mosm/kg Calcium 7.8 L (8.6-10.4) mg/dl Phosphorus (2.5-4.5) mg/dL Magnesium (1.6-2.3) mg/dL Triglycerides (0-149) mg/dL Cholesterol (0-199) mg/dL LDL Cholesterol Direct (0-129) mg/dL HDL Cholesterol (30-70) mg/dL TSH 3rd Generation (0.46-4.68) mIU/L Urine Osmolality 320 (300-1000) mosm/kg Ur Random Sodium 76 mmol/L Laboratory Results - last 24 hr 07/21/17 07/22/17 07/22/17 22:35 01:29 01:29 Sodium 110 L* Potassium 4.4 Chloride 83 L Carbon Dioxide 19 L Anion Gap 12 BUN 8 L Creatinine 0.4 L Est GFR ( Amer) > 60 Est GFR (Non-Af Amer) > 60 Random Glucose 91 Serum Osmolality Calcium 7.8 L Phosphorus Magnesium Triglycerides Cholesterol LDL Cholesterol Direct HDL Cholesterol TSH 3rd Generation Urine Osmolality 320 Ur Random Sodium 76 07/22/17 07/22/17 07/22/17 04:07 04:07 08:46 Sodium 113 L* 114 L* Potassium 4.0 3.8 Chloride 87 L 87 L Carbon Dioxide 19 L 18 L Anion Gap 11 13 BUN 8 L 7 L Creatinine 0.3 L 0.4 L Est GFR ( Amer) > 60 > 60 Est GFR (Non-Af Amer) > 60 > 60 Random Glucose 71 L 123 H Serum Osmolality 241 L Calcium 8.0 L 7.9 L Phosphorus 2.6 Magnesium 1.5 L Triglycerides 89 Cholesterol 109 LDL Cholesterol Direct 39 HDL Cholesterol 55 TSH 3rd Generation 2.83 Urine Osmolality Ur Random Sodium 07/22/17 07/22/17 07/22/17 13:37 16:08 20:28 Sodium 116 L* 117 L* 119 L* Potassium 3.7 3.8 3.8 Chloride 89 L 87 L 91 L Carbon Dioxide 20 L 21 L 20 L Anion Gap 11 13 12 BUN 7 L 8 L 10 Creatinine 0.4 L 0.4 L 0.5 L Est GFR ( Amer) > 60 > 60 > 60 Est GFR (Non-Af Amer) > 60 > 60 > 60 Random Glucose 122 H 73 L 100 Serum Osmolality Calcium 8.0 L 8.0 L 8.5 L Phosphorus Magnesium Triglycerides Cholesterol LDL Cholesterol Direct HDL Cholesterol TSH 3rd Generation Urine Osmolality Ur Random Sodium Review of Systems - Review of Systems All systems: reviewed and no additional remarkable complaints except Critical Care Progress Note - Nutrition Nutrition: Nutrition Category Date Time Status Heart Healthy Diet [DIET] Diets 07/22/17 Breakfast Active Assessment/Plan (1) Hyponatremia Assessment and plan: patient with a history of metastatic small cell lung cancer, status post chemotherapy. Admitted with hyponatremia. Slowly his sodium is improving. We will monitor. Current Visit: Yes Status: Acute
[2017-07-23 00:37] LABS: CHLORIDE 99 mmol/L (98-107); POTASSIUM 4.2 mmol/L (3.6-5.2); SODIUM 127 mmol/L (132-148)
[2017-07-23 00:40] LABS: BLOOD UREA NITROGEN 13 mg/dL (9-20); CARBON DIOXIDE 21 mmol/L (22-30); GFR AFRICAN-AMERICAN > 60; GLUCOSE,RANDOM 86 mg/dL (75-110)
[2017-07-23 07:03] LABS: CHOLESTEROL 125 mg/dL (0-199)
[2017-07-23 07:04] LABS: BASO # 0.1 K/uL (0.0-0.2); BASO % 4.1 % (0.0-2.0); HEMATOCRIT 31.4 % (35.0-51.0); LYMPH # 0.7 K/uL (1.0-4.3); MAGNESIUM 1.9 mg/dL (1.6-2.3); MEAN CORPUSCULAR HEMOGLOBIN 31.9 pg (27.0-31.0); MEAN CORPUSCULAR HGB CONC 34.6 g/dL (33.0-37.0); MEAN PLATELET VOLUME 7.8 fL (7.2-11.7); MONO # 0.1 K/uL (0.0-0.8); MONO % 6.4 % (0.0-10.0); NRBC % 0.1 % (0.0-2.0); PHOSPHOROUS 2.5 mg/dL (2.5-4.5); PLATELET COUNT 181 K/uL (130-400); RED CELL DISTRIBUTION WIDTH 12.8 % (11.5-14.5); WHITE BLOOD COUNT 2.3 K/uL (4.8-10.8)
[2017-07-23 07:17] LABS: MEAN CELL VOLUME 92.2 fL (80.0-94.0)
[2017-07-23 07:35] LABS: THYROID STIMULATING HORMONE 2.25 mIU/L (0.46-4.68)
--- NOTE | 2017-07-23 08:36 | CP.CCUPN ---
CCU Subjective - Physician Review Events Since Last Encounter (Free Text): 07/23/17 08:35 Patient is sitting up, comfortable, no distress. Minimal cough noted. The hiccups is better. CCU Objective - Vital Signs / Intake & Output Vital Signs (Last 4 hours): Vital Signs Pulse Resp BP Pulse Ox 07/23/17 07:04 83 16 115/53 L 100 07/23/17 07:00 87 18 100 07/23/17 06:04 84 17 122/60 100 07/23/17 06:00 83 17 99 07/23/17 05:04 78 14 119/62 99 07/23/17 05:00 79 16 99 Intake and Output (Last 8hrs): Intake & Output 07/22/17 07/23/17 07/23/17 23:59 06:59 14:59 Intake Total Output Total Balance Weight Intake: Intake, IV Amount Right Proximal Port Internal Jugular Oral Output: Urine Urine, Voided - Physical Exam Narrative Physical Exam (Free Text): 07/23/17 08:36 Vital signs reviewed No neck vein distention noted Chest good air entry bilaterally, no wheezing or rales noted CVS regular heart sound, no murmur noted Abdomen soft, nontender. Extremities no pedal edema [employer] alert awake oriented -3, no functional neurological deficit - Medications Active Medications: Active Medications Generic Name Dose Route Start Last Admin Trade Name Freq PRN Reason Stop Dose Admin Aspirin 81 mg 07/22/17 10:00 07/22/17 09:06 Ecotrin PO 81 mg DAILY AWILDA Administration Chlorpromazine 25 mg 07/22/17 01:36 Thorazine PO Q6H PRN Hiccups Clopidogrel Bisulfate 75 mg 07/22/17 10:00 07/22/17 09:08 Plavix PO 75 mg DAILY AWILDA Administration Enoxaparin Sodium 30 mg 07/22/17 10:00 07/22/17 22:11 Lovenox SC 30 mg 1000,2200 AWILDA Administration Famotidine 20 mg 07/22/17 10:00 07/22/17 09:07 Pepcid PO 20 mg DAILY AWILDA Administration Metoprolol Tartrate 25 mg 07/22/17 10:00 07/22/17 18:34 Lopressor PO Not Given BID AWILDA Oxycodone HCl 5 mg 07/22/17 04:37 07/22/17 09:09 Oxycodone Immediate Release Tab PO 5 mg Q6 PRN Administration Pain, severe (8-10) Rosuvastatin Calcium 10 mg 07/22/17 22:00 07/22/17 22:10 Crestor PO 10 mg HS WAILDA Administration Tramadol HCl 50 mg 07/22/17 04:37 Ultram PO Q6H PRN Pain, moderate (4-7) - Patient Studies Lab Studies: Lab Studies 07/23/17 07/23/17 07/23/17 Range/Units 06:45 06:45 00:25 WBC 2.3 L (4.8-10.8) K/uL RBC 3.40 L (4.40-5.90) Mil/uL Hgb 10.9 L (12.0-18.0) g/dL Hct 31.4 L (35.0-51.0) % MCV 92.2 D (80.0-94.0) fL MCH 31.9 H (27.0-31.0) pg MCHC 34.6 (33.0-37.0) g/dL RDW 12.8 (11.5-14.5) % Plt Count 181 (130-400) K/uL MPV 7.8 (7.2-11.7) fL Neut % (Auto) 58.5 (50.0-75.0) % Lymph % (Auto) 29.0 (20.0-40.0) % Maury % (Auto) 6.4 (0.0-10.0) % Eos % (Auto) 2.0 (0.0-4.0) % Baso % (Auto) 4.1 H (0.0-2.0) % Neut # 1.3 L (1.8-7.0) K/uL Lymph # 0.7 L (1.0-4.3) K/uL Maury # 0.1 (0.0-0.8) K/uL Eos # 0.0 (0.0-0.7) K/uL Baso # 0.1 (0.0-0.2) K/uL Sodium 127 L (132-148) mmol/L Potassium 4.2 (3.6-5.2) mmol/L Chloride 99 (98-107) mmol/L Carbon Dioxide 21 L (22-30) mmol/L Anion Gap 11 (10-20) BUN 13 (9-20) mg/dL Creatinine 0.5 L (0.8-1.5) mg/dL Est GFR ( Amer) > 60 Est GFR (Non-Af Amer) > 60 Random Glucose 86 (75-110) mg/dL Uric Acid 4.0 (3.5-8.5) mg/dL Calcium 9.0 (8.6-10.4) mg/dl Phosphorus 2.5 (2.5-4.5) mg/dL Magnesium 1.9 (1.6-2.3) mg/dL Triglycerides 82 (0-149) mg/dL Cholesterol 125 (0-199) mg/dL LDL Cholesterol Direct 53 (0-129) mg/dL HDL Cholesterol 66 (30-70) mg/dL TSH 3rd Generation 2.25 (0.46-4.68) mIU/L 07/22/17 07/22/17 07/22/17 Range/Units 20:28 16:08 13:37 WBC (4.8-10.8) K/uL RBC (4.40-5.90) Mil/uL Hgb (12.0-18.0) g/dL Hct (35.0-51.0) % MCV (80.0-94.0) fL MCH (27.0-31.0) pg MCHC (33.0-37.0) g/dL RDW (11.5-14.5) % Plt Count (130-400) K/uL MPV (7.2-11.7) fL Neut % (Auto) (50.0-75.0) % Lymph % (Auto) (20.0-40.0) % Maury % (Auto) (0.0-10.0) % Eos % (Auto) (0.0-4.0) % Baso % (Auto) (0.0-2.0) % Neut # (1.8-7.0) K/uL Lymph # (1.0-4.3) K/uL Maury # (0.0-0.8) K/uL Eos # (0.0-0.7) K/uL Baso # (0.0-0.2) K/uL Sodium 119 L* 117 L* 116 L* (132-148) mmol/L Potassium 3.8 3.8 3.7 (3.6-5.2) mmol/L Chloride 91 L 87 L 89 L (98-107) mmol/L Carbon Dioxide 20 L 21 L 20 L (22-30) mmol/L Anion Gap 12 13 11 (10-20) BUN 10 8 L 7 L (9-20) mg/dL Creatinine 0.5 L 0.4 L 0.4 L (0.8-1.5) mg/dL Est GFR ( Amer) > 60 > 60 > 60 Est GFR (Non-Af Amer) > 60 > 60 > 60 Random Glucose 100 73 L 122 H (75-110) mg/dL Uric Acid (3.5-8.5) mg/dL Calcium 8.5 L 8.0 L 8.0 L (8.6-10.4) mg/dl Phosphorus (2.5-4.5) mg/dL Magnesium (1.6-2.3) mg/dL Triglycerides (0-149) mg/dL Cholesterol (0-199) mg/dL LDL Cholesterol Direct (0-129) mg/dL HDL Cholesterol (30-70) mg/dL TSH 3rd Generation (0.46-4.68) mIU/L 07/22/17 Range/Units 08:46 WBC (4.8-10.8) K/uL RBC (4.40-5.90) Mil/uL Hgb (12.0-18.0) g/dL Hct (35.0-51.0) % MCV (80.0-94.0) fL MCH (27.0-31.0) pg MCHC (33.0-37.0) g/dL RDW (11.5-14.5) % Plt Count (130-400) K/uL MPV (7.2-11.7) fL Neut % (Auto) (50.0-75.0) % Lymph % (Auto) (20.0-40.0) % Maury % (Auto) (0.0-10.0) % Eos % (Auto) (0.0-4.0) % Baso % (Auto) (0.0-2.0) % Neut # (1.8-7.0) K/uL Lymph # (1.0-4.3) K/uL Maury # (0.0-0.8) K/uL Eos # (0.0-0.7) K/uL Baso # (0.0-0.2) K/uL Sodium (132-148) mmol/L Potassium (3.6-5.2) mmol/L Chloride (98-107) mmol/L Carbon Dioxide (22-30) mmol/L Anion Gap (10-20) BUN (9-20) mg/dL Creatinine (0.8-1.5) mg/dL Est GFR ( Amer) Est GFR (Non-Af Amer) Random Glucose (75-110) mg/dL Uric Acid (3.5-8.5) mg/dL Calcium (8.6-10.4) mg/dl Phosphorus (2.5-4.5) mg/dL Magnesium (1.6-2.3) mg/dL Triglycerides (0-149) mg/dL Cholesterol (0-199) mg/dL LDL Cholesterol Direct (0-129) mg/dL HDL Cholesterol (30-70) mg/dL TSH 3rd Generation 2.83 (0.46-4.68) mIU/L Laboratory Results - last 24 hr 07/22/17 07/22/17 07/22/17 08:46 13:37 16:08 WBC RBC Hgb Hct MCV MCH MCHC RDW Plt Count MPV Neut % (Auto) Lymph % (Auto) Maury % (Auto) Eos % (Auto) Baso % (Auto) Neut # Lymph # Maury # Eos # Baso # Sodium 116 L* 117 L* Potassium 3.7 3.8 Chloride 89 L 87 L Carbon Dioxide 20 L 21 L Anion Gap 11 13 BUN 7 L 8 L Creatinine 0.4 L 0.4 L Est GFR ( Amer) > 60 > 60 Est GFR (Non-Af Amer) > 60 > 60 Random Glucose 122 H 73 L Uric Acid Calcium 8.0 L 8.0 L Phosphorus Magnesium Triglycerides Cholesterol LDL Cholesterol Direct HDL Cholesterol TSH 3rd Generation 2.83 07/22/17 07/23/17 07/23/17 20:28 00:25 06:45 WBC RBC Hgb Hct MCV MCH MCHC RDW Plt Count MPV Neut % (Auto) Lymph % (Auto) Maury % (Auto) Eos % (Auto) Baso % (Auto) Neut # Lymph # Maury # Eos # Baso # Sodium 119 L* 127 L Potassium 3.8 4.2 Chloride 91 L 99 Carbon Dioxide 20 L 21 L Anion Gap 12 11 BUN 10 13 Creatinine 0.5 L 0.5 L Est GFR ( Amer) > 60 > 60 Est GFR (Non-Af Amer) > 60 > 60 Random Glucose 100 86 Uric Acid 4.0 Calcium 8.5 L 9.0 Phosphorus 2.5 Magnesium 1.9 Triglycerides 82 Cholesterol 125 LDL Cholesterol Direct 53 HDL Cholesterol 66 TSH 3rd Generation 2.25 07/23/17 06:45 WBC 2.3 L RBC 3.40 L Hgb 10.9 L Hct 31.4 L MCV 92.2 D MCH 31.9 H MCHC 34.6 RDW 12.8 Plt Count 181 MPV 7.8 Neut % (Auto) 58.5 Lymph % (Auto) 29.0 Maury % (Auto) 6.4 Eos % (Auto) 2.0 Baso % (Auto) 4.1 H Neut # 1.3 L Lymph # 0.7 L Maury # 0.1 Eos # 0.0 Baso # 0.1 Sodium Potassium Chloride Carbon Dioxide Anion Gap BUN Creatinine Est GFR ( Amer) Est GFR (Non-Af Amer) Random Glucose Uric Acid Calcium Phosphorus Magnesium Triglycerides Cholesterol LDL Cholesterol Direct HDL Cholesterol TSH 3rd Generation Review of Systems - Review of Systems All systems: reviewed and no additional remarkable complaints except Critical Care Progress Note - Nutrition Nutrition: Nutrition Category Date Time Status Heart Healthy Diet [DIET] Diets 07/22/17 Breakfast Active Assessment/Plan (1) Hyponatremia Assessment and plan: patient with a history of metastatic small cell lung cancer, status post chemotherapy. Admitted with hyponatremia. Slowly his sodium is improving. We will monitor. Sodium is improving now, patient can be managed in the medical floor Current Visit: Yes Status: Acute
[2017-07-23 08:43] LABS: EOSINOPHIL 4 % (0-4); NEUTROPHIL 56 % (50-75); TOTAL CELLS COUNTED 50
[2017-07-23 08:44] LABS: CHLORIDE 102 mmol/L (98-107); POTASSIUM 3.6 mmol/L (3.6-5.2); SODIUM 132 mmol/L (132-148)
[2017-07-23 08:47] LABS: BLOOD UREA NITROGEN 10 mg/dL (9-20); CALCIUM 8.9 mg/dl (8.6-10.4); CARBON DIOXIDE 18 mmol/L (22-30); GFR AFRICAN-AMERICAN > 60; GLUCOSE,RANDOM 153 mg/dL (75-110)
[2017-07-23] MEDS: Enoxaparin 30 mg Syringe SC SCH ×2 (09:53→21:22)
[2017-07-23 10:26] LABS: CHLORIDE 100 mmol/L (98-107); POTASSIUM 3.8 mmol/L (3.6-5.2); SODIUM 133 mmol/L (132-148)
[2017-07-23 10:28] LABS: GFR AFRICAN-AMERICAN > 60
[2017-07-23 10:29] LABS: BLOOD UREA NITROGEN 9 mg/dL (9-20); CARBON DIOXIDE 21 mmol/L (22-30); GLUCOSE,RANDOM 134 mg/dL (75-110)
--- NOTE | 2017-07-23 17:40 | CP.PCM.PN ---
Subjective - Date & Time of Evaluation Date of Evaluation: 07/23/17 Time of Evaluation: 12:40 - Subjective Subjective: clinically same Objective - Vital Signs/Intake and Output Vital Signs (last 24 hours): Temp Pulse Resp BP Pulse Ox 98.0 F 80 15 119/57 L 100 07/23/17 12:00 07/23/17 15:05 07/23/17 15:05 07/23/17 15:05 07/23/17 14:04 Intake and Output: 07/23/17 07/23/17 06:59 18:59 Intake Total 450 Output Total 1300 Balance -850 - Medications Medications: Current Medications Aspirin (Ecotrin) 81 mg PO DAILY [facility] Last Admin: 07/23/17 09:53 Dose: 81 mg Chlorpromazine (Thorazine) 25 mg PO Q6H PRN PRN Reason: Hiccups Clopidogrel Bisulfate (Plavix) 75 mg PO DAILY [facility] Last Admin: 07/23/17 09:52 Dose: 75 mg Enoxaparin Sodium (Lovenox) 30 mg SC 1000,2200 [facility] Last Admin: 07/23/17 09:53 Dose: 30 mg Famotidine (Pepcid) 20 mg PO DAILY [facility] Last Admin: 07/23/17 09:52 Dose: 20 mg Metoprolol Tartrate (Lopressor) 25 mg PO BID [facility] Last Admin: 07/23/17 10:41 Dose: Not Given Oxycodone HCl (Oxycodone Immediate Release Tab) 5 mg PO Q6 PRN PRN Reason: Pain, severe (8-10) Last Admin: 07/22/17 09:09 Dose: 5 mg Rosuvastatin Calcium (Crestor) 10 mg PO [facility] Last Admin: 07/22/17 22:10 Dose: 10 mg Tramadol HCl (Ultram) 50 mg PO Q6H PRN PRN Reason: Pain, moderate (4-7) - Labs Labs: 07/23/17 06:45 07/23/17 10:08 - Constitutional Appears: Well - Head Exam Head Exam: ATRAUMATIC, NORMAL INSPECTION, NORMOCEPHALIC - Eye Exam Eye Exam: EOMI, Normal appearance, PERRL Pupil Exam: NORMAL ACCOMODATION, PERRL - ENT Exam ENT Exam: Mucous Membranes Moist, Normal Exam - Neck Exam Neck Exam: Full ROM, Normal Inspection. absent: Lymphadenopathy - Respiratory Exam Respiratory Exam: Decreased Breath Sounds - Cardiovascular Exam Cardiovascular Exam: REGULAR RHYTHM, +S1, +S2 - GI/Abdominal Exam GI & Abdominal Exam: Soft, Diminished Bowel Sounds - Rectal Exam Rectal Exam: Deferred Assessment and Plan (1) Hepatomegaly Status: Acute (2) Hiccups Status: Acute (3) Hyponatremia Status: Acute (4) Intractable hiccups Status: Acute (5) Leukopenia Status: Acute (6) Metastatic cancer to liver Status: Acute (7) Small cell lung cancer Status: Acute (8) Thrombocytopenia Status: Acute (9) Abdominal pain Status: Acute (10) Anemia Status: Acute - Assessment and Plan (Free Text) Plan: Surgical consult done for hiccups. Advised to start Thorazine. Continue aspirin, clopidogrel, chlorpromazine, famotidine. Supportive medications. Hypertension medications.
--- NOTE | 2017-07-24 08:32 | CP.PCM.PN ---
Subjective - Date & Time of Evaluation Date of Evaluation: 07/24/17 Time of Evaluation: 12:00 - Subjective Subjective: clinically same Objective - Vital Signs/Intake and Output Vital Signs (last 24 hours): Temp Pulse Resp BP Pulse Ox 98.4 F 72 18 121/53 L 100 07/24/17 08:00 07/24/17 04:00 07/24/17 04:00 07/24/17 08:00 07/24/17 00:00 Intake and Output: 07/24/17 07/24/17 06:59 18:59 Intake Total 350 Output Total 400 Balance -50 - Medications Medications: Current Medications Aspirin (Ecotrin) 81 mg PO DAILY [facility] Last Admin: 07/23/17 09:53 Dose: 81 mg Chlorpromazine (Thorazine) 25 mg PO Q6H PRN PRN Reason: Hiccups Clopidogrel Bisulfate (Plavix) 75 mg PO DAILY [facility] Last Admin: 07/23/17 09:52 Dose: 75 mg Enoxaparin Sodium (Lovenox) 30 mg SC 1000,2200 [facility] Last Admin: 07/23/17 21:22 Dose: 30 mg Famotidine (Pepcid) 20 mg PO DAILY [facility] Last Admin: 07/23/17 09:52 Dose: 20 mg Metoprolol Tartrate (Lopressor) 25 mg PO BID [facility] Last Admin: 07/23/17 18:08 Dose: Not Given Oxycodone HCl (Oxycodone Immediate Release Tab) 5 mg PO Q6 PRN PRN Reason: Pain, severe (8-10) Last Admin: 07/22/17 09:09 Dose: 5 mg Rosuvastatin Calcium (Crestor) 10 mg PO [facility] Last Admin: 07/23/17 21:22 Dose: 10 mg Tramadol HCl (Ultram) 50 mg PO Q6H PRN PRN Reason: Pain, moderate (4-7) - Labs Labs: 07/23/17 06:45 07/23/17 10:08 - Constitutional Appears: Well - Head Exam Head Exam: ATRAUMATIC, NORMAL INSPECTION, NORMOCEPHALIC - Eye Exam Eye Exam: EOMI, Normal appearance, PERRL Pupil Exam: NORMAL ACCOMODATION, PERRL - ENT Exam ENT Exam: Mucous Membranes Moist, Normal Exam - Neck Exam Neck Exam: Full ROM, Normal Inspection. absent: Lymphadenopathy - Respiratory Exam Respiratory Exam: Decreased Breath Sounds - Cardiovascular Exam Cardiovascular Exam: REGULAR RHYTHM, +S1, +S2. absent: Murmur - GI/Abdominal Exam GI & Abdominal Exam: Soft, Normal Bowel Sounds. absent: Tenderness - Rectal Exam Rectal Exam: Deferred Assessment and Plan (1) Hepatomegaly Status: Acute (2) Hiccups Status: Acute (3) Hyponatremia Status: Acute (4) Intractable hiccups Status: Acute (5) Leukopenia Status: Acute (6) Metastatic cancer to liver Status: Acute (7) Small cell lung cancer Status: Acute (8) Thrombocytopenia Status: Acute (9) Abdominal pain Status: Acute (10) Anemia Status: Acute - Assessment and Plan (Free Text) Plan: Patient examined. Clinically the same. hiccups reduced. Continue aspirin, chlorpromazine, clopidogrel, antihypertensive and supportive medications.
[2017-07-24] MEDS: Enoxaparin 30 mg Syringe SC SCH ×2 (09:12→21:52)
[2017-07-24 15:53] VITALS: RESP 20
[2017-07-25 07:32] LABS: BASO # 0.1 K/uL (0.0-0.2); EOS # 0.1 K/uL (0.0-0.7); EOS % 4.3 % (0.0-4.0); LYMPH # 1.1 K/uL (1.0-4.3); MEAN CORPUSCULAR HGB CONC 34.2 g/dL (33.0-37.0); MONO # 0.3 K/uL (0.0-0.8); NRBC % 0.1 % (0.0-2.0); WHITE BLOOD COUNT 2.8 K/uL (4.8-10.8)
[2017-07-25 07:44] LABS: CHLORIDE 94 mmol/L (98-107); SODIUM 129 mmol/L (132-148)
[2017-07-25 07:45] LABS: POTASSIUM 4.6 mmol/L (3.6-5.2)
[2017-07-25 07:47] LABS: ALB/GLOB RATIO 1.6 (1.0-2.1); ALKALINE PHOSPHATASE 427 U/L (38-126); AST/SGOT 79 U/L (17-59); BILIRUBIN,TOTAL 1.3 mg/dL (0.2-1.3); BLOOD UREA NITROGEN 10 mg/dL (9-20); CARBON DIOXIDE 26 mmol/L (22-30); GFR AFRICAN-AMERICAN > 60; GLUCOSE,RANDOM 80 mg/dL (75-110); TOTAL PROTEIN 6.4 g/dL (6.3-8.3)
[2017-07-25 07:48] LABS: ALT/SGPT 68 U/L (21-72); CALCIUM 8.6 mg/dl (8.6-10.4); HEMATOCRIT 32.5 % (35.0-51.0); LYMPH % 39.6 % (20.0-40.0); MEAN CELL VOLUME 92.9 fL (80.0-94.0); MEAN CORPUSCULAR HEMOGLOBIN 31.7 pg (27.0-31.0); MEAN PLATELET VOLUME 7.3 fL (7.2-11.7); MONO % 10.5 % (0.0-10.0); RED CELL DISTRIBUTION WIDTH 12.8 % (11.5-14.5)
--- NOTE | 2017-07-25 10:51 | CP.PCM.PN ---
Addendum entered and electronically signed by Gracie Fournier DO 07/25/17 14: 31: 07/06 liver biopsy shows metastatic cancer - care is turned over from GI to Dr. Bae Original Note: <Gracie Fournier - Last Filed: 07/25/17 12:21> Subjective - Date & Time of Evaluation Date of Evaluation: 07/25/17 Time of Evaluation: 11:50 - Subjective Subjective: PGY3 Medicine Note - Dr. Nicole Mccartney's service: Patient seen and examined at bedside this AM. Patient has no complaints. Patient reports abdominal pain. Objective - Vital Signs/Intake and Output Vital Signs (last 24 hours): Temp Pulse Resp BP Pulse Ox 99.9 F H 86 20 138/63 97 07/25/17 08:16 07/25/17 08:16 07/25/17 08:16 07/25/17 08:16 07/25/17 08:16 Intake and Output: 07/25/17 07/25/17 06:59 18:59 Intake Total 300 Balance 300 - Medications Medications: Current Medications Aspirin (Ecotrin) 81 mg PO DAILY [facility] Last Admin: 07/24/17 09:12 Dose: 81 mg Chlorpromazine (Thorazine) 25 mg PO Q6H PRN PRN Reason: Hiccups Clopidogrel Bisulfate (Plavix) 75 mg PO DAILY [facility] Last Admin: 07/24/17 09:12 Dose: 75 mg Enoxaparin Sodium (Lovenox) 30 mg SC 1000,2200 [facility] Last Admin: 07/24/17 21:52 Dose: 30 mg Famotidine (Pepcid) 20 mg PO DAILY [facility] Last Admin: 07/24/17 09:12 Dose: 20 mg Metoprolol Tartrate (Lopressor) 25 mg PO BID [facility] Last Admin: 07/24/17 18:02 Dose: 25 mg Oxycodone HCl (Oxycodone Immediate Release Tab) 5 mg PO Q6 PRN PRN Reason: Pain, severe (8-10) Last Admin: 07/22/17 09:09 Dose: 5 mg Rosuvastatin Calcium (Crestor) 10 mg PO HS [facility] Last Admin: 07/24/17 21:52 Dose: 10 mg Tramadol HCl (Ultram) 50 mg PO Q6H PRN PRN Reason: Pain, moderate (4-7) - Labs Labs: 07/25/17 07:18 07/25/17 07:18 - Constitutional Appears: Non-toxic, No Acute Distress - Head Exam Head Exam: NORMAL INSPECTION - Eye Exam Eye Exam: EOMI - ENT Exam ENT Exam: Mucous Membranes Moist - Respiratory Exam Respiratory Exam: Clear to Ausculation Bilateral, NORMAL BREATHING PATTERN. absent: Rales, Rhonchi, Wheezes - Cardiovascular Exam Cardiovascular Exam: REGULAR RHYTHM, +S1, +S2. absent: Gallop, Rubs - GI/Abdominal Exam GI & Abdominal Exam: Soft, Normal Bowel Sounds. 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 Shahida Bae - help appreciated Elevated ALP Likely secondary to mets 427 F/U GGT and Alk phosph isomerase Metastatic Small Cell Lung Cancer s/p chemo Hematology consult - Dr. Shahida Bae - help appreciated WBC 2.8 HLD Crestor 10mg PO HS HTN Metoprolol 25mg PO BID CAD with bypass graft ASA 81mg PO daily Plavix 75mg PO daily Prophylaxis Pepcid 20mg PO daily Lovenox 40mg SC daily All medical management per Dr. Nicole Mccartnye <Ko Mccartney S - Last Filed: 07/25/17 16:01> Objective - Vital Signs/Intake and Output Vital Signs (last 24 hours): Temp Pulse Resp BP Pulse Ox 99.9 F H 86 20 148/76 97 07/25/17 08:16 07/25/17 08:16 07/25/17 08:16 07/25/17 11:13 07/25/17 08:16 Intake and Output: 07/25/17 07/25/17 06:59 18:59 Intake Total 300 Balance 300 - Medications Medications: Current Medications Aspirin (Ecotrin) 81 mg PO DAILY [facility] Last Admin: 07/25/17 11:14 Dose: 81 mg Chlorpromazine (Thorazine) 25 mg PO Q6H PRN PRN Reason: Hiccups Clopidogrel Bisulfate (Plavix) 75 mg PO DAILY [facility] Last Admin: 07/25/17 11:14 Dose: 75 mg Enoxaparin Sodium (Lovenox) 30 mg SC 1000,2200 [facility] Last Admin: 07/25/17 11:14 Dose: 30 mg Famotidine (Pepcid) 20 mg PO DAILY [facility] Last Admin: 07/25/17 11:14 Dose: 20 mg Metoprolol Tartrate (Lopressor) 25 mg PO BID [facility] Last Admin: 07/25/17 11:13 Dose: 25 mg Oxycodone HCl (Oxycodone Immediate Release Tab) 5 mg PO Q6 PRN PRN Reason: Pain, severe (8-10) Last Admin: 07/22/17 09:09 Dose: 5 mg Rosuvastatin Calcium (Crestor) 10 mg PO HS [facility] Last Admin: 07/24/17 21:52 Dose: 10 mg Tramadol HCl (Ultram) 50 mg PO Q6H PRN PRN Reason: Pain, moderate (4-7) - Labs Labs: 07/25/17 07:18 07/25/17 07:18 Attending/Attestation - Attestation I have personally seen and examined this patient.: Yes I have fully participated in the care of the patient.: Yes I have reviewed all pertinent clinical information, including history, physical exam and plan: Yes Notes (Text): Patient examined. Abdominal pain present. Fluid restriction. Hematology and oncology consult for leukopenia. Continue treatment for small lung cell lung cancer, hyperlipidemia, HTN, CAD.
[2017-07-25] MEDS: Enoxaparin 30 mg Syringe SC SCH ×2 (11:14→22:15)
--- NOTE | 2017-07-25 18:46 | CP.PCM.PN ---
Subjective - Date & Time of Evaluation Date of Evaluation: 07/24/17 Time of Evaluation: 19:00 - Subjective Subjective: Feeling better Objective - Vital Signs/Intake and Output Vital Signs (last 24 hours): Temp Pulse Resp BP Pulse Ox 99.9 F H 86 20 148/76 97 07/25/17 08:16 07/25/17 08:16 07/25/17 08:16 07/25/17 17:41 07/25/17 08:16 Intake and Output: 07/25/17 07/25/17 06:59 18:59 Intake Total 300 Balance 300 - Medications Medications: Current Medications Aspirin (Ecotrin) 81 mg PO DAILY [facility] Last Admin: 07/25/17 11:14 Dose: 81 mg Chlorpromazine (Thorazine) 25 mg PO Q6H PRN PRN Reason: Hiccups Clopidogrel Bisulfate (Plavix) 75 mg PO DAILY [facility] Last Admin: 07/25/17 11:14 Dose: 75 mg Enoxaparin Sodium (Lovenox) 30 mg SC 1000,2200 [facility] Last Admin: 07/25/17 11:14 Dose: 30 mg Famotidine (Pepcid) 20 mg PO DAILY [facility] Last Admin: 07/25/17 11:14 Dose: 20 mg Metoprolol Tartrate (Lopressor) 25 mg PO BID [facility] Last Admin: 07/25/17 17:41 Dose: 25 mg Oxycodone HCl (Oxycodone Immediate Release Tab) 5 mg PO Q6 PRN PRN Reason: Pain, severe (8-10) Last Admin: 07/22/17 09:09 Dose: 5 mg Rosuvastatin Calcium (Crestor) 10 mg PO HS [facility] Last Admin: 07/24/17 21:52 Dose: 10 mg Tramadol HCl (Ultram) 50 mg PO Q6H PRN PRN Reason: Pain, moderate (4-7) - Labs Labs: 07/25/17 07:18 07/25/17 07:18 - Head Exam Head Exam: ATRAUMATIC - Eye Exam Eye Exam: Normal appearance - ENT Exam ENT Exam: Mucous Membranes Dry - Respiratory Exam Respiratory Exam: NORMAL BREATHING PATTERN - Cardiovascular Exam Cardiovascular Exam: +S1, +S2 - GI/Abdominal Exam GI & Abdominal Exam: Normal Bowel Sounds Assessment and Plan (1) Leukopenia Assessment & Plan: mild neutropenia secondary to chemotherapy Status: Acute (2) Anemia Assessment & Plan: chemotherapy, chronic disease Status: Acute (3) Small cell lung cancer Assessment & Plan: outpatient treatment Status: Acute
--- NOTE | 2017-07-25 18:47 | CP.PCM.PN ---
Subjective - Date & Time of Evaluation Date of Evaluation: 07/25/17 Time of Evaluation: 18:05 - Subjective Subjective: Has some calf pain; will check b/l venous duplex Objective - Vital Signs/Intake and Output Vital Signs (last 24 hours): Temp Pulse Resp BP Pulse Ox 99.9 F H 86 20 148/76 97 07/25/17 08:16 07/25/17 08:16 07/25/17 08:16 07/25/17 17:41 07/25/17 08:16 Intake and Output: 07/25/17 07/25/17 06:59 18:59 Intake Total 300 Balance 300 - Medications Medications: Current Medications Aspirin (Ecotrin) 81 mg PO DAILY [facility] Last Admin: 07/25/17 11:14 Dose: 81 mg Chlorpromazine (Thorazine) 25 mg PO Q6H PRN PRN Reason: Hiccups Clopidogrel Bisulfate (Plavix) 75 mg PO DAILY [facility] Last Admin: 07/25/17 11:14 Dose: 75 mg Enoxaparin Sodium (Lovenox) 30 mg SC 1000,2200 [facility] Last Admin: 07/25/17 11:14 Dose: 30 mg Famotidine (Pepcid) 20 mg PO DAILY [facility] Last Admin: 07/25/17 11:14 Dose: 20 mg Metoprolol Tartrate (Lopressor) 25 mg PO BID [facility] Last Admin: 07/25/17 17:41 Dose: 25 mg Oxycodone HCl (Oxycodone Immediate Release Tab) 5 mg PO Q6 PRN PRN Reason: Pain, severe (8-10) Last Admin: 07/22/17 09:09 Dose: 5 mg Rosuvastatin Calcium (Crestor) 10 mg PO HS [facility] Last Admin: 07/24/17 21:52 Dose: 10 mg Tramadol HCl (Ultram) 50 mg PO Q6H PRN PRN Reason: Pain, moderate (4-7) - Labs Labs: 07/25/17 07:18 07/25/17 07:18 - Head Exam Head Exam: ATRAUMATIC - Eye Exam Eye Exam: Normal appearance - ENT Exam ENT Exam: Mucous Membranes Dry - Respiratory Exam Respiratory Exam: NORMAL BREATHING PATTERN - Cardiovascular Exam Cardiovascular Exam: +S1, +S2 - GI/Abdominal Exam GI & Abdominal Exam: Normal Bowel Sounds - Extremities Exam Extremities Exam: Normal Inspection Assessment and Plan (1) Leukopenia Assessment & Plan: secondary to chemotherapy mild neutropenia Status: Acute (2) Anemia Assessment & Plan: chronic disease, chemotherapy Status: Acute (3) Small cell lung cancer Assessment & Plan: outpatient treatment Status: Acute
--- NOTE | 2017-07-25 19:51 | CP.PCM.PN ---
Subjective - Date & Time of Evaluation Date of Evaluation: 07/25/17 Time of Evaluation: 07:40 - Subjective Subjective: clinically same Objective - Vital Signs/Intake and Output Vital Signs (last 24 hours): Temp Pulse Resp BP Pulse Ox 99.9 F H 86 20 148/76 97 07/25/17 08:16 07/25/17 08:16 07/25/17 08:16 07/25/17 17:41 07/25/17 08:16 - Medications Medications: Current Medications Aspirin (Ecotrin) 81 mg PO DAILY [facility] Last Admin: 07/25/17 11:14 Dose: 81 mg Chlorpromazine (Thorazine) 25 mg PO Q6H PRN PRN Reason: Hiccups Clopidogrel Bisulfate (Plavix) 75 mg PO DAILY [facility] Last Admin: 07/25/17 11:14 Dose: 75 mg Enoxaparin Sodium (Lovenox) 30 mg SC 1000,2200 [facility] Last Admin: 07/25/17 11:14 Dose: 30 mg Famotidine (Pepcid) 20 mg PO DAILY [facility] Last Admin: 07/25/17 11:14 Dose: 20 mg Metoprolol Tartrate (Lopressor) 25 mg PO BID [facility] Last Admin: 07/25/17 17:41 Dose: 25 mg Oxycodone HCl (Oxycodone Immediate Release Tab) 5 mg PO Q6 PRN PRN Reason: Pain, severe (8-10) Last Admin: 07/22/17 09:09 Dose: 5 mg Rosuvastatin Calcium (Crestor) 10 mg PO HS [facility] Last Admin: 07/24/17 21:52 Dose: 10 mg Tramadol HCl (Ultram) 50 mg PO Q6H PRN PRN Reason: Pain, moderate (4-7) - Labs Labs: 07/25/17 07:18 07/25/17 07:18 - Constitutional Appears: Well - Head Exam Head Exam: ATRAUMATIC, NORMAL INSPECTION, NORMOCEPHALIC - Eye Exam Eye Exam: EOMI, Normal appearance, PERRL Pupil Exam: NORMAL ACCOMODATION, PERRL - ENT Exam ENT Exam: Mucous Membranes Moist, Normal Exam - Neck Exam Neck Exam: Full ROM, Normal Inspection. absent: Lymphadenopathy - Respiratory Exam Respiratory Exam: Decreased Breath Sounds - Cardiovascular Exam Cardiovascular Exam: REGULAR RHYTHM, +S1, +S2 - GI/Abdominal Exam GI & Abdominal Exam: Soft, Diminished Bowel Sounds - Rectal Exam Rectal Exam: Deferred Assessment and Plan (1) Abdominal pain Status: Acute (2) Anemia Status: Acute (3) Hepatomegaly Status: Acute (4) Hiccups Status: Acute (5) Hyponatremia Status: Acute (6) Intractable hiccups Status: Acute (7) Leukopenia Status: Acute (8) Metastatic cancer to liver Status: Acute (9) Small cell lung cancer Status: Acute (10) Thrombocytopenia Status: Acute - Assessment and Plan (Free Text) Plan: Patient examined. Patient feeling clinically better. Occasional calf pain, bilateral venous duplex to be done. Continue aspirin, clopidogrel, chlorpromazine. Antihypertensive and supportive medications.
[2017-07-26 06:57] LABS: BASO # 0.1 K/uL (0.0-0.2); BASO % 2.5 % (0.0-2.0); EOS # 0.1 K/uL (0.0-0.7); EOS % 5.2 % (0.0-4.0); HEMATOCRIT 29.3 % (35.0-51.0); LYMPH # 1.2 K/uL (1.0-4.3); LYMPH % 50.4 % (20.0-40.0); MEAN CELL VOLUME 92.7 fL (80.0-94.0); MEAN CORPUSCULAR HEMOGLOBIN 32.1 pg (27.0-31.0); MEAN CORPUSCULAR HGB CONC 34.6 g/dL (33.0-37.0); MEAN PLATELET VOLUME 7.4 fL (7.2-11.7); MONO # 0.3 K/uL (0.0-0.8); MONO % 11.7 % (0.0-10.0); NRBC % 0.1 % (0.0-2.0); RED CELL DISTRIBUTION WIDTH 12.9 % (11.5-14.5); WHITE BLOOD COUNT 2.5 K/uL (4.8-10.8)
[2017-07-26 07:19] LABS: CHLORIDE 93 mmol/L (98-107)
[2017-07-26 07:20] LABS: POTASSIUM 4.6 mmol/L (3.6-5.2); SODIUM 125 mmol/L (132-148)
[2017-07-26 07:22] LABS: ALB/GLOB RATIO 1.5 (1.0-2.1); ALKALINE PHOSPHATASE 372 U/L (38-126); AST/SGOT 66 U/L (17-59); BILIRUBIN,TOTAL 1.1 mg/dL (0.2-1.3); BLOOD UREA NITROGEN 10 mg/dL (9-20); CARBON DIOXIDE 24 mmol/L (22-30); GFR AFRICAN-AMERICAN > 60; GLUCOSE,RANDOM 73 mg/dL (75-110); TOTAL PROTEIN 5.7 g/dL (6.3-8.3)
[2017-07-26 07:23] LABS: ALT/SGPT 58 U/L (21-72)
--- NOTE | 2017-07-26 08:21 | CP.PCM.PN ---
<IrlandaGracie Diamante - Last Filed: 07/26/17 08:18> Subjective - Date & Time of Evaluation Date of Evaluation: 07/26/17 Time of Evaluation: 08:15 - Subjective Subjective: PGY3 Medicine Note - Dr. Nicole Mccartney's service: Patient seen and examined at bedside this AM. Patient reports abdominal pain, headache and b/l calf pain. Patient does not want to go home. Objective - Vital Signs/Intake and Output Vital Signs (last 24 hours): Temp Pulse Resp BP Pulse Ox 98.4 F 75 20 111/65 98 07/26/17 00:00 07/26/17 00:00 07/26/17 00:00 07/26/17 00:00 07/26/17 00:00 Intake and Output: 07/26/17 07/26/17 06:59 18:59 Intake Total 120 Balance 120 - Medications Medications: Current Medications Aspirin (Ecotrin) 81 mg PO DAILY [facility] Last Admin: 07/25/17 11:14 Dose: 81 mg Chlorpromazine (Thorazine) 25 mg PO Q6H PRN PRN Reason: Hiccups Clopidogrel Bisulfate (Plavix) 75 mg PO DAILY [facility] Last Admin: 07/25/17 11:14 Dose: 75 mg Enoxaparin Sodium (Lovenox) 30 mg SC 1000,2200 [facility] Last Admin: 07/25/17 22:15 Dose: 30 mg Famotidine (Pepcid) 20 mg PO DAILY [facility] Last Admin: 07/25/17 11:14 Dose: 20 mg Metoprolol Tartrate (Lopressor) 25 mg PO BID [facility] Last Admin: 07/25/17 17:41 Dose: 25 mg Oxycodone HCl (Oxycodone Immediate Release Tab) 5 mg PO Q6 PRN PRN Reason: Pain, severe (8-10) Last Admin: 07/22/17 09:09 Dose: 5 mg Rosuvastatin Calcium (Crestor) 10 mg PO HS [facility] Last Admin: 07/25/17 22:14 Dose: 10 mg Tramadol HCl (Ultram) 50 mg PO Q6H PRN PRN Reason: Pain, moderate (4-7) Last Admin: 07/25/17 19:54 Dose: 50 mg - Labs Labs: 07/26/17 06:48 07/26/17 06:48 - Constitutional Appears: Non-toxic, No Acute Distress - Head Exam Head Exam: NORMAL INSPECTION - Eye Exam Eye Exam: EOMI - ENT Exam ENT Exam: Mucous Membranes Moist - Respiratory Exam Respiratory Exam: Rhonchi, Wheezes, NORMAL BREATHING PATTERN. absent: Rales - Cardiovascular Exam Cardiovascular Exam: REGULAR RHYTHM, +S1, +S2. absent: Gallop, Rubs - GI/Abdominal Exam GI & Abdominal Exam: Tenderness, Normal Bowel Sounds - Extremities Exam Extremities Exam: Calf Tenderness. 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 Shahida Bae - help appreciated Headache F/U Head CT to rule out mets Calf Pain F/U b/l dopplers Metastasis to Liver 07/06 Liver biopsy showed metastatic cancer ALP 427 F/U GGT and Alk phosph isomerase Metastatic Small Cell Lung Cancer s/p chemo Hematology consult - Dr. Shahida Bae - help appreciated WBC 2.8 HLD Crestor 10mg PO HS HTN Metoprolol 25mg PO BID CAD with bypass graft ASA 81mg PO daily Plavix 75mg PO daily Prophylaxis Pepcid 20mg PO daily Lovenox 40mg SC daily All medical management per Dr. Nicole Mccartney <Ko Mccartney S - Last Filed: 07/31/17 16:39> Objective - Vital Signs/Intake and Output Vital Signs (last 24 hours): Temp Pulse Resp BP Pulse Ox 98.5 F 69 20 121/61 99 07/31/17 07:29 07/31/17 07:29 07/31/17 07:29 07/31/17 09:55 07/31/17 07:29 Intake and Output: 07/31/17 07/31/17 06:59 18:59 Intake Total 480 Balance 480 - Medications Medications: Current Medications Aspirin (Ecotrin) 81 mg PO DAILY [facility] Last Admin: 07/31/17 09:55 Dose: 81 mg Chlorpromazine (Thorazine) 25 mg PO Q6H PRN PRN Reason: Hiccups Clopidogrel Bisulfate (Plavix) 75 mg PO DAILY [facility] Last Admin: 07/31/17 09:55 Dose: 75 mg Demeclocycline HCl (Declomycin) 150 mg PO BID [facility] Last Admin: 07/31/17 09:57 Dose: 150 mg Enoxaparin Sodium (Lovenox) 30 mg SC 1000,2200 [facility] Last Admin: 07/31/17 09:55 Dose: 30 mg Famotidine (Pepcid) 20 mg PO DAILY [facility] Last Admin: 07/31/17 09:54 Dose: 20 mg Metoprolol Tartrate (Lopressor) 25 mg PO BID [facility] Last Admin: 07/31/17 09:55 Dose: 25 mg Oxycodone HCl (Oxycodone Immediate Release Tab) 5 mg PO Q6 PRN PRN Reason: Pain, severe (8-10) Last Admin: 07/28/17 16:23 Dose: 5 mg Rosuvastatin Calcium (Crestor) 10 mg PO HS [facility] Last Admin: 07/30/17 21:24 Dose: 10 mg Tramadol HCl (Ultram) 50 mg PO Q6H PRN PRN Reason: Pain, moderate (4-7) Last Admin: 07/30/17 12:58 Dose: 50 mg - Labs Labs: 07/31/17 13:54 07/31/17 13:54 Assessment and Plan (1) Abdominal pain Status: Acute (2) Anemia Status: Acute (3) Hepatomegaly Status: Acute (4) Hiccups Status: Acute (5) Hyponatremia Status: Acute (6) Intractable hiccups Status: Acute (7) Leukopenia Status: Acute (8) Metastatic cancer to liver Status: Acute (9) Small cell lung cancer Status: Acute (10) Thrombocytopenia Status: Acute Attending/Attestation - Attestation I have personally seen and examined this patient.: Yes I have fully participated in the care of the patient.: Yes I have reviewed all pertinent clinical information, including history, physical exam and plan: Yes Notes (Text): Patient examined. Abdominal pain headache and bilateral calf pain present. Continue aspirin, chlorpromazine, clopidogrel, supportive medications and hypertension medications
--- NOTE | 2017-07-26 09:50 | CT ---
PROCEDURE: CT HEAD WITHOUT CONTRAST. HISTORY: r/o mets COMPARISON: None available. TECHNIQUE: Axial computed tomography images were obtained through the head/brain without intravenous contrast. Radiation dose: Total exam DLP = 807.37 mGy-cm. This CT exam was performed using one or more of the following dose reduction techniques: Automated exposure control, adjustment of the mA and/or kV according to patient size, and/or use of iterative reconstruction technique. FINDINGS: HEMORRHAGE: No acute parenchymal, subarachnoid or extra-axial hemorrhage. BRAIN: No obvious parenchymal nor extra-axial masses or collections identified on this noncontrast study. Note however the possibility of small metastatic lesions cannot be completely excluded and if there is any concern, recommend pre and post-contrast MRI of the brain for further evaluation. Mild -moderate diffuse/confluent chronic white matter ischemic changes seen extending peripherally into the deep and subcortical white matter both cerebral hemispheres. . In addition, there also appear to be a few small bilateral basal nuclei chronic lacunar-type infarcts VENTRICLES: No obstructive hydrocephalus CALVARIUM: The no acute calvarial fractures. . There is a elliptical shaped lucency within the inner table right posterior superior parietal calvarium that is nonspecific and of uncertain etiology however this could represent a venous mcbride. No definitive cortical destructive changes or soft tissue component ; MRI would help further characterize this lucency. PARANASAL SINUSES: Unremarkable as visualized. No significant inflammatory changes. MASTOID AIR CELLS: The mastoid air complexes are sclerotic/underpneumatized with the complete opacification of the right mastoid air complex and middle ear canal and subtotal opacification of the left mastoid air complex. OTHER FINDINGS: None. IMPRESSION: No acute intracranial hemorrhage. Mild -moderate chronic white matter ischemic changes with a few scattered chronic bilateral basal nuclei lacunar type infarcts. No definitive intracranial metastatic lesions however the possibility of small metastatic deposits cannot be completely excluded and therefore if there is any concern, pre and post-contrast MRI of brain recommended for further evaluation. Elliptical shaped lucency within the inner table right posterior superior parietal calvarium that is of uncertain etiology though could represent a venous mcbride. No definitive cortical destructive changes or soft tissue component ; MRI would help further characterize this lucency. Changes consistent with chronic mastoiditis.
[2017-07-26] MEDS: Enoxaparin 30 mg Syringe SC SCH ×2 (11:17→21:13)
--- NOTE | 2017-07-26 12:38 | VASCLAB ---
PROCEDURE: Lower Extremity Venous Duplex Exam. HISTORY: Pain in limb PRIORS: None. TECHNIQUE: Bilateral common femoral, femoral, popliteal and posterior tibial, peroneal and great saphenous veins were evaluated. Flow was assessed with color Doppler, compressibility, assessment of phasic flow and augmentation response. Report prepared by LALITO Moran FINDINGS: RIGHT: 1. Common Femoral Vein: 1.1. Compressibility - Fully compressible: Thrombus - None : Flow - Phasic: Augmentation -Normal: Reflux - None. 2. Femoral Vein: 2.1. Compressibility - Fully compressible: Thrombus - None : Flow - Phasic: Augmentation -Normal: Reflux - None. 3. Popliteal Vein: 3.1. Compressibility - Fully compressible: Thrombus - None : Flow - Phasic: Augmentation -Normal: Reflux - None. 4. Posterior Tibial Vein: 4.1. Compressibility - Fully compressible: Thrombus - None: Flow - Phasic: Augmentation -Normal: Reflux - None. 5. Peroneal Vein: 5.1. Compressibility - Fully compressible: Thrombus - None: Flow - Phasic: Augmentation -Normal: Reflux - None. 6. Great Saphenous Vein: 6.1. Not visualized. LEFT: 1. Common Femoral Vein: 1.1. Compressibility - Fully compressible: Thrombus - None: Flow - Phasic: Augmentation -Normal: Reflux - None. 2. Femoral Vein: 2.1. Compressibility - Fully compressible: Thrombus - None: Flow - Phasic: Augmentation -Normal: Reflux - None. 3. Popliteal Vein: 3.1. Compressibility - Fully compressible: Thrombus - None : Flow - Phasic: Augmentation -Normal: Reflux - None. 4. Posterior Tibial Vein: 4.1. Compressibility - Fully compressible: Thrombus - None: Flow - Phasic: Augmentation -Normal: Reflux - None. 5. Peroneal Vein: 5.1. Compressibility - Fully compressible: Thrombus - None: Flow - Phasic: Augmentation -Normal: Reflux - None. 6. Great Saphenous Vein: 6.1. Compressibility - Fully compressible: Thrombus - None: Flow - Phasic: Augmentation - Normal: Reflux - None. OTHER FINDINGS: Right: None significant. Left: None significant. IMPRESSION: Right: No evidence of deep or superficial vein thrombosis of the right lower extremity. Normal valve function noted of the right side. Left: No evidence of deep or superficial vein thrombosis of the left lower extremity. Normal valve function noted of the left side.
--- NOTE | 2017-07-26 20:04 | CP.PCM.PN ---
Subjective - Date & Time of Evaluation Date of Evaluation: 07/26/17 Time of Evaluation: 07:20 - Subjective Subjective: clinically same Objective - Vital Signs/Intake and Output Vital Signs (last 24 hours): Temp Pulse Resp BP Pulse Ox 98.4 F 75 20 116/65 98 07/26/17 00:00 07/26/17 00:00 07/26/17 00:00 07/26/17 17:44 07/26/17 00:00 Intake and Output: 07/26/17 07/27/17 18:59 06:59 Intake Total 400 Balance 400 - Medications Medications: Current Medications Aspirin (Ecotrin) 81 mg PO DAILY [facility] Last Admin: 07/26/17 11:17 Dose: 81 mg Chlorpromazine (Thorazine) 25 mg PO Q6H PRN PRN Reason: Hiccups Clopidogrel Bisulfate (Plavix) 75 mg PO DAILY [facility] Last Admin: 07/26/17 11:17 Dose: 75 mg Enoxaparin Sodium (Lovenox) 30 mg SC 1000,2200 [facility] Last Admin: 07/26/17 11:17 Dose: 30 mg Famotidine (Pepcid) 20 mg PO DAILY [facility] Last Admin: 07/26/17 11:17 Dose: 20 mg Metoprolol Tartrate (Lopressor) 25 mg PO BID [facility] Last Admin: 07/26/17 17:44 Dose: 25 mg Oxycodone HCl (Oxycodone Immediate Release Tab) 5 mg PO Q6 PRN PRN Reason: Pain, severe (8-10) Last Admin: 07/22/17 09:09 Dose: 5 mg Rosuvastatin Calcium (Crestor) 10 mg PO [facility] Last Admin: 07/25/17 22:14 Dose: 10 mg Tramadol HCl (Ultram) 50 mg PO Q6H PRN PRN Reason: Pain, moderate (4-7) Last Admin: 07/25/17 19:54 Dose: 50 mg - Labs Labs: 07/26/17 06:48 07/26/17 06:48 - Constitutional Appears: Well - Head Exam Head Exam: ATRAUMATIC, NORMAL INSPECTION, NORMOCEPHALIC - Eye Exam Eye Exam: EOMI, Normal appearance, PERRL Pupil Exam: NORMAL ACCOMODATION, PERRL - ENT Exam ENT Exam: Mucous Membranes Moist, Normal Exam - Neck Exam Neck Exam: Full ROM, Normal Inspection. absent: Lymphadenopathy - Respiratory Exam Respiratory Exam: Decreased Breath Sounds - Cardiovascular Exam Cardiovascular Exam: REGULAR RHYTHM, +S1, +S2 - GI/Abdominal Exam GI & Abdominal Exam: Soft, Diminished Bowel Sounds - Rectal Exam Rectal Exam: Deferred Assessment and Plan (1) Hepatomegaly Status: Acute (2) Hiccups Status: Acute (3) Hyponatremia Status: Acute (4) Intractable hiccups Status: Acute (5) Leukopenia Status: Acute (6) Metastatic cancer to liver Status: Acute (7) Small cell lung cancer Status: Acute (8) Thrombocytopenia Status: Acute (9) Abdominal pain Status: Acute (10) Anemia Status: Acute - Assessment and Plan (Free Text) Plan: Patient examined. Duplex scan of bilateral lower limbs not suggestive of DVT. Continue chlorpromazine. Aspirin and clopidogrel. Antihypertensive and supportive medications.
--- NOTE | 2017-07-26 21:39 | CP.PCM.PN ---
Subjective - Date & Time of Evaluation Date of Evaluation: 07/26/17 Time of Evaluation: 12:00 - Subjective Subjective: Has headache Objective - Vital Signs/Intake and Output Vital Signs (last 24 hours): Temp Pulse Resp BP Pulse Ox 98.3 F 71 20 116/65 97 07/26/17 15:20 07/26/17 15:20 07/26/17 15:20 07/26/17 17:44 07/26/17 15:20 Intake and Output: 07/26/17 07/27/17 18:59 06:59 Intake Total 400 Balance 400 - Medications Medications: Current Medications Aspirin (Ecotrin) 81 mg PO DAILY [facility] Last Admin: 07/26/17 11:17 Dose: 81 mg Chlorpromazine (Thorazine) 25 mg PO Q6H PRN PRN Reason: Hiccups Clopidogrel Bisulfate (Plavix) 75 mg PO DAILY [facility] Last Admin: 07/26/17 11:17 Dose: 75 mg Enoxaparin Sodium (Lovenox) 30 mg SC 1000,2200 [facility] Last Admin: 07/26/17 21:13 Dose: 30 mg Famotidine (Pepcid) 20 mg PO DAILY [facility] Last Admin: 07/26/17 11:17 Dose: 20 mg Metoprolol Tartrate (Lopressor) 25 mg PO BID [facility] Last Admin: 07/26/17 17:44 Dose: 25 mg Oxycodone HCl (Oxycodone Immediate Release Tab) 5 mg PO Q6 PRN PRN Reason: Pain, severe (8-10) Last Admin: 07/22/17 09:09 Dose: 5 mg Rosuvastatin Calcium (Crestor) 10 mg PO HS [facility] Last Admin: 07/26/17 21:13 Dose: 10 mg Tramadol HCl (Ultram) 50 mg PO Q6H PRN PRN Reason: Pain, moderate (4-7) Last Admin: 07/25/17 19:54 Dose: 50 mg - Labs Labs: 07/26/17 06:48 07/26/17 06:48 - Head Exam Head Exam: ATRAUMATIC - Eye Exam Eye Exam: Normal appearance - ENT Exam ENT Exam: Mucous Membranes Dry - Respiratory Exam Respiratory Exam: NORMAL BREATHING PATTERN - Cardiovascular Exam Cardiovascular Exam: +S1, +S2 - GI/Abdominal Exam GI & Abdominal Exam: Normal Bowel Sounds - Extremities Exam Extremities Exam: Normal Inspection Assessment and Plan (1) Leukopenia Assessment & Plan: secondary to chemotherapy one dose of Granix today Status: Acute (2) Anemia Assessment & Plan: chronic disease, chemotherapy Status: Acute (3) Small cell lung cancer Assessment & Plan: stage IV on chemotherapy Status: Acute
[2017-07-27 08:16] LABS: BASO % 0.8 % (0.0-2.0); EOS # 0.1 K/uL (0.0-0.7); EOS % 2.9 % (0.0-4.0); HEMATOCRIT 29.7 % (35.0-51.0); LYMPH # 1.5 K/uL (1.0-4.3); LYMPH % 30.8 % (20.0-40.0); MEAN CELL VOLUME 92.4 fL (80.0-94.0); MEAN CORPUSCULAR HEMOGLOBIN 31.9 pg (27.0-31.0); MEAN CORPUSCULAR HGB CONC 34.6 g/dL (33.0-37.0); MEAN PLATELET VOLUME 7.5 fL (7.2-11.7); MONO # 0.7 K/uL (0.0-0.8); MONO % 14.4 % (0.0-10.0); NRBC % 0.1 % (0.0-2.0); RED CELL DISTRIBUTION WIDTH 12.5 % (11.5-14.5)
[2017-07-27 08:17] LABS: CHLORIDE 89 mmol/L (98-107); POTASSIUM 4.5 mmol/L (3.6-5.2)
[2017-07-27 08:19] LABS: AST/SGOT 61 U/L (17-59); BILIRUBIN,TOTAL 1.4 mg/dL (0.2-1.3); CARBON DIOXIDE 23 mmol/L (22-30); GFR AFRICAN-AMERICAN > 60
[2017-07-27 08:20] LABS: ALKALINE PHOSPHATASE 380 U/L (38-126); ALT/SGPT 48 U/L (21-72); BLOOD UREA NITROGEN 8 mg/dL (9-20); CALCIUM 7.9 mg/dl (8.6-10.4); GLUCOSE,RANDOM 74 mg/dL (75-110); TOTAL PROTEIN 5.6 g/dL (6.3-8.3)
[2017-07-27 08:22] LABS: ALB/GLOB RATIO 1.4 (1.0-2.1)
[2017-07-27 08:23] LABS: WHITE BLOOD COUNT 4.9 K/uL (4.8-10.8)
[2017-07-27 08:25] LABS: SODIUM 120 mmol/L (132-148)
[2017-07-27] MEDS: Enoxaparin 30 mg Syringe SC SCH ×2 (10:27→21:34)
[2017-07-27] MEDS: oxyCODONE 5 mg Immediate Release Tab PO PRN ×2 (10:38→21:41)
--- NOTE | 2017-07-27 14:50 | CP.PCM.PN ---
<Wily Mercer - Last Filed: 07/27/17 15:07> Subjective - Date & Time of Evaluation Date of Evaluation: 07/27/17 Time of Evaluation: 15:00 - Subjective Subjective: Progress note. Attending: Dr. Mccartney. Pt seen and examined at bedside. No acute distress. No events overnight. No fevers, chills, vomiting, diarrhea, cp, sob. Objective - Vital Signs/Intake and Output Vital Signs (last 24 hours): Temp Pulse Resp BP Pulse Ox 98.4 F 72 20 116/65 98 07/27/17 09:26 07/27/17 09:26 07/27/17 09:26 07/27/17 11:05 07/27/17 09:26 Intake and Output: 07/27/17 07/27/17 06:59 18:59 Intake Total 240 Balance 240 - Medications Medications: Current Medications Aspirin (Ecotrin) 81 mg PO DAILY [facility] Last Admin: 07/27/17 10:29 Dose: 81 mg Chlorpromazine (Thorazine) 25 mg PO Q6H PRN PRN Reason: Hiccups Clopidogrel Bisulfate (Plavix) 75 mg PO DAILY [facility] Last Admin: 07/27/17 10:29 Dose: 75 mg Enoxaparin Sodium (Lovenox) 30 mg SC 1000,2200 [facility] Last Admin: 07/27/17 10:27 Dose: 30 mg Famotidine (Pepcid) 20 mg PO DAILY [facility] Last Admin: 07/27/17 10:28 Dose: 20 mg Metoprolol Tartrate (Lopressor) 25 mg PO BID [facility] Last Admin: 07/27/17 10:28 Dose: 25 mg Oxycodone HCl (Oxycodone Immediate Release Tab) 5 mg PO Q6 PRN PRN Reason: Pain, severe (8-10) Last Admin: 07/27/17 10:38 Dose: 5 mg Rosuvastatin Calcium (Crestor) 10 mg PO HS [facility] Last Admin: 07/26/17 21:13 Dose: 10 mg Tramadol HCl (Ultram) 50 mg PO Q6H PRN PRN Reason: Pain, moderate (4-7) Last Admin: 07/25/17 19:54 Dose: 50 mg - Labs Labs: 07/27/17 07:43 07/27/17 07:43 - Constitutional Appears: Non-toxic, No Acute Distress - Head Exam Head Exam: ATRAUMATIC, NORMAL INSPECTION, NORMOCEPHALIC - Eye Exam Eye Exam: EOMI - ENT Exam ENT Exam: Mucous Membranes Moist - Neck Exam Neck Exam: Full ROM, Normal Inspection - Respiratory Exam Respiratory Exam: NORMAL BREATHING PATTERN. absent: Respiratory Distress - Cardiovascular Exam Cardiovascular Exam: +S1, +S2 - GI/Abdominal Exam GI & Abdominal Exam: Soft, Normal Bowel Sounds. absent: Tenderness - Extremities Exam Extremities Exam: Full ROM, Normal Inspection - Back Exam Back Exam: NORMAL INSPECTION - Neurological Exam Neurological Exam: Alert, Awake, Oriented x3 - Psychiatric Exam Psychiatric exam: Normal Affect, Normal Mood - Skin Skin Exam: Dry, Intact, Normal Color, Warm Assessment and Plan - Assessment and Plan (Free Text) Assessment: This is a 62 yo male with 1. 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 Leukopenia -Secondary to chemotherapy -HIV negative Hematology consult - Dr. Shahida Bae- recs appreciated. 3. Headache -head ct shows chronic ischemic changes, signs consistent with chronic mastoiditis, cannot definitive exclude mets 4. Calf Pain -dopplers negative. 5. Metastasis to Liver -07/06 Liver biopsy showed metastatic cancer -GGT 1025 -Alk phos 380 6. Metastatic Small Cell Lung Cancer -s/p chemotherapy. -Hematology consult - Dr. Shahida Bae - help appreciated -continue to monitor 7. HLD -Crestor 10mg PO HS 8. HTN -Metoprolol 25mg PO BID 9. CAD with bypass graft -ASA 81mg PO daily -Plavix 75mg PO daily 10. GI/DVT ppx -Pepcid 20mg PO daily -Lovenox 40mg SC daily All medical management per Dr. Nicole Mccartney <Ko Mccartney - Last Filed: 07/31/17 16:41> Objective - Vital Signs/Intake and Output Vital Signs (last 24 hours): Temp Pulse Resp BP Pulse Ox 98.5 F 69 20 121/61 99 07/31/17 07:29 07/31/17 07:29 07/31/17 07:29 07/31/17 09:55 07/31/17 07:29 Intake and Output: 07/31/17 07/31/17 06:59 18:59 Intake Total 480 Balance 480 - Medications Medications: Current Medications Aspirin (Ecotrin) 81 mg PO DAILY [facility] Last Admin: 07/31/17 09:55 Dose: 81 mg Chlorpromazine (Thorazine) 25 mg PO Q6H PRN PRN Reason: Hiccups Clopidogrel Bisulfate (Plavix) 75 mg PO DAILY [facility] Last Admin: 07/31/17 09:55 Dose: 75 mg Demeclocycline HCl (Declomycin) 150 mg PO BID [facility] Last Admin: 07/31/17 09:57 Dose: 150 mg Enoxaparin Sodium (Lovenox) 30 mg SC 1000,2200 [facility] Last Admin: 07/31/17 09:55 Dose: 30 mg Famotidine (Pepcid) 20 mg PO DAILY [facility] Last Admin: 07/31/17 09:54 Dose: 20 mg Metoprolol Tartrate (Lopressor) 25 mg PO BID [facility] Last Admin: 07/31/17 09:55 Dose: 25 mg Oxycodone HCl (Oxycodone Immediate Release Tab) 5 mg PO Q6 PRN PRN Reason: Pain, severe (8-10) Last Admin: 07/28/17 16:23 Dose: 5 mg Rosuvastatin Calcium (Crestor) 10 mg PO HS [facility] Last Admin: 07/30/17 21:24 Dose: 10 mg Tramadol HCl (Ultram) 50 mg PO Q6H PRN PRN Reason: Pain, moderate (4-7) Last Admin: 07/30/17 12:58 Dose: 50 mg - Labs Labs: 07/31/17 13:54 07/31/17 13:54 Assessment and Plan (1) Hepatomegaly Status: Acute (2) Hiccups Status: Acute (3) Hyponatremia Status: Acute (4) Intractable hiccups Status: Acute (5) Leukopenia Status: Acute (6) Metastatic cancer to liver Status: Acute (7) Small cell lung cancer Status: Acute (8) Thrombocytopenia Status: Acute (9) Abdominal pain Status: Acute (10) Anemia Status: Acute Attending/Attestation - Attestation I have personally seen and examined this patient.: Yes I have fully participated in the care of the patient.: Yes I have reviewed all pertinent clinical information, including history, physical exam and plan: Yes Notes (Text): Patient examined. No acute overnight events. Patient is not in distress. Continue chlorpromazine. Aspirin and clopidogrel. Antihypertensive and supportive medications.
--- NOTE | 2017-07-27 14:54 | CP.PCM.PN ---
Subjective - Date & Time of Evaluation Date of Evaluation: 07/27/17 Time of Evaluation: 07:00 - Subjective Subjective: clinically same Objective - Vital Signs/Intake and Output Vital Signs (last 24 hours): Temp Pulse Resp BP Pulse Ox 98.4 F 72 20 116/65 98 07/27/17 09:26 07/27/17 09:26 07/27/17 09:26 07/27/17 11:05 07/27/17 09:26 Intake and Output: 07/27/17 07/27/17 06:59 18:59 Intake Total 240 Balance 240 - Medications Medications: Current Medications Aspirin (Ecotrin) 81 mg PO DAILY [facility] Last Admin: 07/27/17 10:29 Dose: 81 mg Chlorpromazine (Thorazine) 25 mg PO Q6H PRN PRN Reason: Hiccups Clopidogrel Bisulfate (Plavix) 75 mg PO DAILY [facility] Last Admin: 07/27/17 10:29 Dose: 75 mg Enoxaparin Sodium (Lovenox) 30 mg SC 1000,2200 [facility] Last Admin: 07/27/17 10:27 Dose: 30 mg Famotidine (Pepcid) 20 mg PO DAILY [facility] Last Admin: 07/27/17 10:28 Dose: 20 mg Metoprolol Tartrate (Lopressor) 25 mg PO BID [facility] Last Admin: 07/27/17 10:28 Dose: 25 mg Oxycodone HCl (Oxycodone Immediate Release Tab) 5 mg PO Q6 PRN PRN Reason: Pain, severe (8-10) Last Admin: 07/27/17 10:38 Dose: 5 mg Rosuvastatin Calcium (Crestor) 10 mg PO [facility] Last Admin: 07/26/17 21:13 Dose: 10 mg Tramadol HCl (Ultram) 50 mg PO Q6H PRN PRN Reason: Pain, moderate (4-7) Last Admin: 07/25/17 19:54 Dose: 50 mg - Labs Labs: 07/27/17 07:43 07/27/17 07:43 - Constitutional Appears: Well - Head Exam Head Exam: ATRAUMATIC, NORMAL INSPECTION, NORMOCEPHALIC - Eye Exam Eye Exam: EOMI, Normal appearance, PERRL Pupil Exam: NORMAL ACCOMODATION, PERRL - ENT Exam ENT Exam: Mucous Membranes Moist, Normal Exam - Neck Exam Neck Exam: Full ROM, Normal Inspection. absent: Lymphadenopathy - Respiratory Exam Respiratory Exam: Decreased Breath Sounds - Cardiovascular Exam Cardiovascular Exam: REGULAR RHYTHM, +S1, +S2 - GI/Abdominal Exam GI & Abdominal Exam: Soft, Diminished Bowel Sounds - Rectal Exam Rectal Exam: Deferred Assessment and Plan (1) Hepatomegaly Status: Acute (2) Hiccups Status: Acute (3) Hyponatremia Status: Acute (4) Intractable hiccups Status: Acute (5) Leukopenia Status: Acute (6) Metastatic cancer to liver Status: Acute (7) Small cell lung cancer Status: Acute (8) Thrombocytopenia Status: Acute (9) Abdominal pain Status: Acute (10) Anemia Status: Acute - Assessment and Plan (Free Text) Plan: Patient examined. Patient clinically better. Continue chlorpromazine. Aspirin and clopidogrel. Enoxaparin. Antihypertensive and supportive medications.
[2017-07-27 15:51] LABS: ALKALINE PHOSPHATASE 524 U/L (40-115)
[2017-07-27] MEDS: Tolvaptan 15 MG TAB PO SCH (17:58)
--- NOTE | 2017-07-27 19:38 | CP.PCM.PN ---
Subjective - Date & Time of Evaluation Date of Evaluation: 07/27/17 Time of Evaluation: 18:00 - Subjective Subjective: No complaints. Objective - Vital Signs/Intake and Output Vital Signs (last 24 hours): Temp Pulse Resp BP Pulse Ox 98.1 F 67 20 110/60 99 07/27/17 15:00 07/27/17 15:00 07/27/17 15:00 07/27/17 17:57 07/27/17 15:00 Intake and Output: 07/27/17 07/28/17 18:59 06:59 Intake Total 1500 Balance 1500 - Medications Medications: Current Medications Aspirin (Ecotrin) 81 mg PO DAILY [facility] Last Admin: 07/27/17 10:29 Dose: 81 mg Chlorpromazine (Thorazine) 25 mg PO Q6H PRN PRN Reason: Hiccups Clopidogrel Bisulfate (Plavix) 75 mg PO DAILY [facility] Last Admin: 07/27/17 10:29 Dose: 75 mg Demeclocycline HCl (Declomycin) 150 mg PO BID [facility] Enoxaparin Sodium (Lovenox) 30 mg SC 1000,2200 [facility] Last Admin: 07/27/17 10:27 Dose: 30 mg Famotidine (Pepcid) 20 mg PO DAILY [facility] Last Admin: 07/27/17 10:28 Dose: 20 mg Metoprolol Tartrate (Lopressor) 25 mg PO BID [facility] Last Admin: 07/27/17 17:57 Dose: 25 mg Oxycodone HCl (Oxycodone Immediate Release Tab) 5 mg PO Q6 PRN PRN Reason: Pain, severe (8-10) Last Admin: 07/27/17 10:38 Dose: 5 mg Rosuvastatin Calcium (Crestor) 10 mg PO [facility] Last Admin: 07/26/17 21:13 Dose: 10 mg Tolvaptan (Samsca) 15 mg PO DAILY [facility] Stop: 07/29/17 15:06 Last Admin: 07/27/17 17:58 Dose: 15 mg Tramadol HCl (Ultram) 50 mg PO Q6H PRN PRN Reason: Pain, moderate (4-7) Last Admin: 07/25/17 19:54 Dose: 50 mg - Labs Labs: 07/27/17 07:43 07/27/17 07:43 - Head Exam Head Exam: ATRAUMATIC - Eye Exam Eye Exam: Normal appearance - ENT Exam ENT Exam: Mucous Membranes Dry - Respiratory Exam Respiratory Exam: NORMAL BREATHING PATTERN - Cardiovascular Exam Cardiovascular Exam: +S1, +S2 - GI/Abdominal Exam GI & Abdominal Exam: Normal Bowel Sounds - Extremities Exam Extremities Exam: Normal Inspection Assessment and Plan (1) Anemia Assessment & Plan: mild secondary to chemotherapy Status: Acute (2) Thrombocytopenia Assessment & Plan: mild secondary to chemotherapy Status: Acute (3) Small cell lung cancer Assessment & Plan: stage IV outpatient treatment Status: Acute
[2017-07-28 06:57] LABS: ALB/GLOB RATIO 1.1 (1.0-2.1); ALKALINE PHOSPHATASE 395 U/L (38-126); ALT/SGPT 61 U/L (21-72); AST/SGOT 69 U/L (17-59); BILIRUBIN,TOTAL 0.8 mg/dL (0.2-1.3); BLOOD UREA NITROGEN 7 mg/dL (9-20); CALCIUM 8.6 mg/dl (8.6-10.4); CARBON DIOXIDE 23 mmol/L (22-30); CHLORIDE 98 mmol/L (98-107); GFR AFRICAN-AMERICAN > 60; GLUCOSE,RANDOM 105 mg/dL (75-110); MAGNESIUM 1.9 mg/dL (1.6-2.3); POTASSIUM 4.4 mmol/L (3.6-5.2); SODIUM 132 mmol/L (132-148); TOTAL PROTEIN 7.1 g/dL (6.3-8.3)
[2017-07-28 07:25] LABS: EOS # 0.1 K/uL (0.0-0.7); EOS % 1.8 % (0.0-4.0); MONO # 0.7 K/uL (0.0-0.8); WHITE BLOOD COUNT 6.2 K/uL (4.8-10.8)
[2017-07-28 07:36] LABS: BASO % 0.8 % (0.0-2.0); HEMATOCRIT 32.4 % (35.0-51.0); LYMPH # 1.5 K/uL (1.0-4.3); LYMPH % 24.7 % (20.0-40.0); MEAN CORPUSCULAR HEMOGLOBIN 32.2 pg (27.0-31.0); MEAN CORPUSCULAR HGB CONC 34.3 g/dL (33.0-37.0); MONO % 11.3 % (0.0-10.0); RED CELL DISTRIBUTION WIDTH 12.7 % (11.5-14.5)
[2017-07-28] MEDS: Enoxaparin 30 mg Syringe SC SCH ×2 (09:46→21:04)
[2017-07-28] MEDS: Tolvaptan 15 MG TAB PO SCH (09:47)
--- NOTE | 2017-07-28 10:41 | CP.PCM.PN ---
<Wily Mercer - Last Filed: 07/28/17 10:41> Subjective - Date & Time of Evaluation Date of Evaluation: 07/28/17 Time of Evaluation: 10:40 - Subjective Subjective: Progress note. Attending: Dr. Mccartney. Pt seen and examined at bedside. No acute distress. No events overnight. NA is improved. Patient does have some mild abdominal pain at this time. Will order palliative care consult for goals of care. No fevers, chills, vomiting, diarrhea , chest pain, sob. Objective - Vital Signs/Intake and Output Vital Signs (last 24 hours): Temp Pulse Resp BP Pulse Ox 98.1 F 76 20 124/68 98 07/28/17 08:44 07/28/17 08:44 07/28/17 08:44 07/28/17 09:48 07/28/17 08:44 Intake and Output: 07/28/17 07/28/17 06:59 18:59 Intake Total 540 Balance 540 - Medications Medications: Current Medications Aspirin (Ecotrin) 81 mg PO DAILY [facility] Last Admin: 07/28/17 09:46 Dose: 81 mg Chlorpromazine (Thorazine) 25 mg PO Q6H PRN PRN Reason: Hiccups Clopidogrel Bisulfate (Plavix) 75 mg PO DAILY [facility] Last Admin: 07/28/17 09:46 Dose: 75 mg Demeclocycline HCl (Declomycin) 150 mg PO BID [facility] Last Admin: 07/28/17 09:47 Dose: 150 mg Enoxaparin Sodium (Lovenox) 30 mg SC 1000,2200 [facility] Last Admin: 07/28/17 09:46 Dose: 30 mg Famotidine (Pepcid) 20 mg PO DAILY [facility] Last Admin: 07/28/17 09:46 Dose: 20 mg Metoprolol Tartrate (Lopressor) 25 mg PO BID [facility] Last Admin: 07/28/17 09:48 Dose: 25 mg Oxycodone HCl (Oxycodone Immediate Release Tab) 5 mg PO Q6 PRN PRN Reason: Pain, severe (8-10) Last Admin: 07/27/17 21:41 Dose: 5 mg Rosuvastatin Calcium (Crestor) 10 mg PO HS [facility] Last Admin: 07/27/17 21:33 Dose: 10 mg Tolvaptan (Samsca) 15 mg PO DAILY [facility] Stop: 07/29/17 15:06 Last Admin: 07/28/17 09:47 Dose: 15 mg Tramadol HCl (Ultram) 50 mg PO Q6H PRN PRN Reason: Pain, moderate (4-7) Last Admin: 07/25/17 19:54 Dose: 50 mg - Labs Labs: 07/28/17 06:31 07/28/17 06:31 - Constitutional Appears: Non-toxic, No Acute Distress, Chronically Ill - Head Exam Head Exam: ATRAUMATIC, NORMAL INSPECTION, NORMOCEPHALIC - Eye Exam Eye Exam: EOMI - ENT Exam ENT Exam: Mucous Membranes Moist - Neck Exam Neck Exam: Full ROM, Normal Inspection - Respiratory Exam Respiratory Exam: NORMAL BREATHING PATTERN. absent: Respiratory Distress - Cardiovascular Exam Cardiovascular Exam: +S1, +S2 - GI/Abdominal Exam GI & Abdominal Exam: Soft, Normal Bowel Sounds. absent: Tenderness - Extremities Exam Extremities Exam: Full ROM, Normal Inspection - Back Exam Back Exam: NORMAL INSPECTION - Neurological Exam Neurological Exam: Alert, Awake, Oriented x3 - Psychiatric Exam Psychiatric exam: Normal Affect, Normal Mood - Skin Skin Exam: Dry, Intact, Normal Color, Warm Assessment and Plan - Assessment and Plan (Free Text) Assessment: This is a 62 yo male with 1. 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 Leukopenia -Secondary to chemotherapy -HIV negative -Hematology consult - Dr. Shahida Bae- recs appreciated. 3. Headache -head ct shows chronic ischemic changes, signs consistent with chronic mastoiditis, cannot definitive exclude mets -pt does have metal in his head and I do not believe an MRI can be ordered 4. Calf Pain -dopplers negative. 5. Metastasis to Liver -07/06 Liver biopsy showed metastatic cancer -GGT 1025 -Alk phos 380 6. Metastatic Small Cell Lung Cancer -s/p chemotherapy. -Hematology consult - Dr. Shahida Bae - help appreciated -continue to monitor -palliative care consult. recs appreciated for goals of care. 7. HLD -Crestor 10mg PO HS 8. HTN -Metoprolol 25mg PO BID 9. CAD with bypass graft -ASA 81mg PO daily -Plavix 75mg PO daily -continue metoprolol 25 mg PO BID 10. GI/DVT ppx -Pepcid 20mg PO daily -Lovenox 40mg SC daily DISPO: awaiting input from heme/onc regarding further prognosis and management. palliative care consult ordered. All medical management per Dr. Nicole Mccartney <Ko Mccartney - Last Filed: 07/31/17 16:42> Objective - Vital Signs/Intake and Output Vital Signs (last 24 hours): Temp Pulse Resp BP Pulse Ox 98.5 F 69 20 121/61 99 07/31/17 07:29 07/31/17 07:29 07/31/17 07:29 07/31/17 09:55 07/31/17 07:29 Intake and Output: 07/31/17 07/31/17 06:59 18:59 Intake Total 480 Balance 480 - Medications Medications: Current Medications Aspirin (Ecotrin) 81 mg PO DAILY [facility] Last Admin: 07/31/17 09:55 Dose: 81 mg Chlorpromazine (Thorazine) 25 mg PO Q6H PRN PRN Reason: Hiccups Clopidogrel Bisulfate (Plavix) 75 mg PO DAILY [facility] Last Admin: 07/31/17 09:55 Dose: 75 mg Demeclocycline HCl (Declomycin) 150 mg PO BID [facility] Last Admin: 07/31/17 09:57 Dose: 150 mg Enoxaparin Sodium (Lovenox) 30 mg SC 1000,2200 [facility] Last Admin: 07/31/17 09:55 Dose: 30 mg Famotidine (Pepcid) 20 mg PO DAILY [facility] Last Admin: 07/31/17 09:54 Dose: 20 mg Metoprolol Tartrate (Lopressor) 25 mg PO BID [facility] Last Admin: 07/31/17 09:55 Dose: 25 mg Oxycodone HCl (Oxycodone Immediate Release Tab) 5 mg PO Q6 PRN PRN Reason: Pain, severe (8-10) Last Admin: 07/28/17 16:23 Dose: 5 mg Rosuvastatin Calcium (Crestor) 10 mg PO [facility] Last Admin: 07/30/17 21:24 Dose: 10 mg Tramadol HCl (Ultram) 50 mg PO Q6H PRN PRN Reason: Pain, moderate (4-7) Last Admin: 07/30/17 12:58 Dose: 50 mg - Labs Labs: 07/31/17 13:54 07/31/17 13:54 Assessment and Plan (1) Hepatomegaly Status: Acute (2) Hiccups Status: Acute (3) Hyponatremia Status: Acute (4) Intractable hiccups Status: Acute (5) Leukopenia Status: Acute (6) Metastatic cancer to liver Status: Acute (7) Small cell lung cancer Status: Acute (8) Thrombocytopenia Status: Acute (9) Abdominal pain Status: Acute (10) Anemia Status: Acute Attending/Attestation - Attestation I have personally seen and examined this patient.: Yes I have fully participated in the care of the patient.: Yes I have reviewed all pertinent clinical information, including history, physical exam and plan: Yes Notes (Text): Patient examined. Mild abdominal pain present. Start oxycodone for pain. Aspirin and clopidogrel. Chlorpromazine to be continued. Supportive medications and antihypertensive medications.
--- NOTE | 2017-07-28 12:21 | CP.PCM.PN ---
Subjective - Date & Time of Evaluation Date of Evaluation: 07/28/17 Time of Evaluation: 12:05 - Subjective Subjective: Has left hip pain with ambulation Objective - Vital Signs/Intake and Output Vital Signs (last 24 hours): Temp Pulse Resp BP Pulse Ox 98.1 F 65 20 118/72 97 07/28/17 08:44 07/28/17 11:00 07/28/17 08:44 07/28/17 11:00 07/28/17 11:00 Intake and Output: 07/28/17 07/28/17 06:59 18:59 Intake Total 540 400 Balance 540 400 - Medications Medications: Current Medications Aspirin (Ecotrin) 81 mg PO DAILY [facility] Last Admin: 07/28/17 09:46 Dose: 81 mg Chlorpromazine (Thorazine) 25 mg PO Q6H PRN PRN Reason: Hiccups Clopidogrel Bisulfate (Plavix) 75 mg PO DAILY [facility] Last Admin: 07/28/17 09:46 Dose: 75 mg Demeclocycline HCl (Declomycin) 150 mg PO BID [facility] Last Admin: 07/28/17 09:47 Dose: 150 mg Enoxaparin Sodium (Lovenox) 30 mg SC 1000,2200 [facility] Last Admin: 07/28/17 09:46 Dose: 30 mg Famotidine (Pepcid) 20 mg PO DAILY [facility] Last Admin: 07/28/17 09:46 Dose: 20 mg Metoprolol Tartrate (Lopressor) 25 mg PO BID [facility] Last Admin: 07/28/17 09:48 Dose: 25 mg Oxycodone HCl (Oxycodone Immediate Release Tab) 5 mg PO Q6 PRN PRN Reason: Pain, severe (8-10) Last Admin: 07/27/17 21:41 Dose: 5 mg Rosuvastatin Calcium (Crestor) 10 mg PO [facility] Last Admin: 07/27/17 21:33 Dose: 10 mg Tolvaptan (Samsca) 15 mg PO DAILY [facility] Tramadol HCl (Ultram) 50 mg PO Q6H PRN PRN Reason: Pain, moderate (4-7) Last Admin: 07/25/17 19:54 Dose: 50 mg - Labs Labs: 07/28/17 06:31 07/28/17 06:31 - Head Exam Head Exam: ATRAUMATIC - Eye Exam Eye Exam: Normal appearance - ENT Exam ENT Exam: Mucous Membranes Dry - Respiratory Exam Respiratory Exam: NORMAL BREATHING PATTERN - Cardiovascular Exam Cardiovascular Exam: +S1, +S2 - GI/Abdominal Exam GI & Abdominal Exam: Normal Bowel Sounds - Extremities Exam Extremities Exam: Normal Inspection Assessment and Plan (1) Anemia Assessment & Plan: secondary to chemotherapy chronic disease from malignancy Status: Acute (2) Thrombocytopenia Assessment & Plan: improving secondary to chemotherapy Status: Acute (3) Small cell lung cancer Assessment & Plan: stage IV outpatient treatment Status: Acute
--- NOTE | 2017-07-28 13:12 | CP.PCM.CON ---
History of Present Illness - History of Present Illness History of Present Illness: Palliative consult Requested by Zo TRAVIS Reason: Goals of care discussion Patient is a 62 yo male admitted from home with persistent hiccups. Patient was administered Thorazine, with results. The blood work was significant for low Na of 120. Patient has known Hx of lung cancer with mets to liver. Patient was checked for mets to brain and the CT head was negative. Patient complains of left groin pain with ambulation. PMH: metastatic lung cancer, mets to liver, ETOH abuse in the past Soc. Hx: lives with daughter, Fam. Hx: denied cancer in family Review of Systems - Constitutional Constitutional: absent: As Per HPI, Anorexia, Chills, Daytime Sleepiness, Excessive Sweating, Fatigue, Fever, Frequent Falls, Headache, Increased Appetite , Lethargy, Malaise, Night Sweats, Snoring, Sleep Apnea, Weight Gain, Weight Loss, Weakness, Other - EENT Eyes: absent: As Per HPI, Blind Spots, Blurred Vision, Change in Vision, Decreased Night Vision, Diplopia, Discharge, Dry Eye, Exophthalmos, Floaters, Irritation, Itchy Eyes, Loss of Peripheral Vision, Pain, Photophobia, Requires Corrective Lenses, Sees Flashes, Spots in Vision, Tunnel Vision, Other Visual Disturbances, Loss of Vision, Other Ears: absent: As Per HPI, Decreased Hearing, Ear Discharge, Ear Pain, Tinnitus, Abnormal Hearing, Disequilibrium, Dizziness, Other Nose/Mouth/Throat: absent: As Per HPI, Epistaxis, Nasal Congestion, Nasal Discharge, Nasal Obstruction, Nasal Trauma, Nose Pain, Post Nasal Drip, Sinus Pain, Sinus Pressure, Bleeding Gums, Change in Voice, Dental Pain, Dry Mouth, Dysphagia, Halitosis, Hoarsness, Lip Swelling, Mouth Lesions, Mouth Pain, Odynophagia, Sore Throat, Throat Swelling, Tongue Swelling, Facial Pain, Neck Pain, Neck Mass, Other - Cardiovascular Cardiovascular: absent: As Per HPI, Acrocyanosis, Chest Pain, Chest Pain at Rest , Chest Pain with Activity, Claudication, Diaphoresis, Dyspnea, Dyspnea on Exertion, Edema, Irregular Heart Rhythm, Pain Radiating to Arm/Neck/Jaw, Leg Edema, Leg Ulcers, Lightheadedness, Orthopnea, Palpitations, Paroxysmal Nocturnal Dyspnea, Pedal Edema, Radiating Pain, Rapid Heart Rate, Slow Heart Rate, Syncope, Other - Respiratory Respiratory: absent: As Per HPI, Cough, Dyspnea, Hemoptysis, Dyspnea on Exertion , Wheezing, Snoring, Stridor, Pain on Inspiration, Chest Congestion, Excessive Mucous Production, Change in Mucous Color, Pain with Coughing, Other - Gastrointestinal Gastrointestinal: absent: As Per HPI, Abdominal Pain, Belching, Bloating, Change in Bowel Habits, Change in Stool Character, Coffee Ground Emesis, Constipation, Cramping, Diarrhea, Dyspepsia, Dysphagia, Early Satiety, Excessive Flatus, Fecal Incontinence, Heartburn, Hematemesis, Hematochezia, Loose Stools, Melena, Nausea, Odynophagia, Temesmus, Vomiting, Other - Genitourinary Genitourinary: absent: As Per HPI, Change in Urinary Stream, Difficulty Urinating, Dysuria, Flank Pain, Hematuria, Pyuria, Nocturia, Urinary Incontinence, Urinary Frequency, Urinary Hesitance, Urinary Urgency, Voiding Freq/Small Amts, Freq UTI, Hx Renal/Bladder Calculi, Hx /Renal Surgery, Bladder Distension, Other - Musculoskeletal Additional comments: left groin pain with ambulation - Integumentary Integumentary: absent: As Per HPI, Acne, Alopecia, Bleeding Lesions, Change in Hair, Change in Nails, Change in Pigmentation, Changing Lesions, Dry Skin, Erythema, Furuncle, Hirsutism, Lesions, New Lesions, Non-Healing Lesions, Photosensitivity, Pruritus, Rash, Skin Pain, Skin Ulcer, Sores, Striae, Swelling , Unusual Bruising, Wounds, Jaundice, Other - Neurological Neurological: absent: As Per HPI, Abnormal Gait, Abnormal Hearing, Abnormal Movements, Abnormal Speech, Behavioral Changes, Burning Sensations, Confusion, Convulsions, Disequilibrium, Dizziness, Numbness, Focal Weakness, Frequent Falls , Headaches, Lack of Coordination, Loss of Vision, Memory Loss, Paresthesias, Radicular Pain, Restless Legs, Sensory Deficit, Syncope, Tingling, Tremor, Vertigo, Weakness, Other Visual Disturbances, Other - Psychiatric Psychiatric: absent: As Per HPI, Abnormal Sleep Pattern, Anhedonia, Anxiety, Auditory Hallucinations, Behavioral Changes, Change in Appetite, Change in Libido, Confusion, Depression, Difficulty Concentrating, Hallucinations, Homicidal Ideation, Hopelessness, Irritability, Memory Loss, Mood Swings, Panic Attacks, Paranoia, Suicidal Ideation, Visual Hallucinations, Tactile Hallucinations, Other - Endocrine Endocrine: absent: As Per HPI, Change in Body Appearance, Change in Libido, Cold Intolorance, Deepening of Voice, Excessive Sweating, Fatigue, Flushing, Heat Intolorance, Increase in Ring/Shoe/Hat Size, Palpitations, Polydipsia, Polyphagia, Polyuria, Other - Hematologic/Lymphatic Hematologic: absent: As Per HPI, Easy Bleeding, Easy Bruising, Lymphadenopathy, Other Past Patient History - Infectious Disease Hx of Infectious Diseases: None - Past Medical History & Family History Past Medical History?: Yes - Past Social History Smoking Status: Light Smoker < 10 Cigarettes Daily Chewing Tobacco Use: No Cigar Use: No Alcohol: None Drugs: Denies - CARDIAC Hx Cardiac Disorders: Yes Hx Hypertension: Yes - PULMONARY Hx Respiratory Disorders: No - NEUROLOGICAL Hx Neurological Disorder: No Hx Paralysis: No - HEENT Hx HEENT Problems: No - RENAL Hx Chronic Kidney Disease: No - ENDOCRINE/METABOLIC Hx Endocrine Disorders: No - HEMATOLOGICAL/ONCOLOGICAL Hx Blood Disorders: No Hx Blood Transfusions: No - INTEGUMENTARY Hx Dermatological Problems: No - MUSCULOSKELETAL/RHEUMATOLOGICAL Hx Arthritis: Yes (BACK/ HIP/KNEE) - GASTROINTESTINAL Hx Gastritis: Yes - GENITOURINARY/GYNECOLOGICAL Hx Genitourinary Disorders: No - PSYCHIATRIC Hx Substance Use: No - SURGICAL HISTORY Hx Coronary Artery Bypass Graft: Yes - ANESTHESIA Hx Anesthesia: Yes Hx Anesthesia Reactions: No Hx Malignant Hyperthermia: No Meds Allergies/Adverse Reactions: Allergies Allergy/AdvReac Type Severity Reaction Status Date / Time No Known Allergies Allergy Verified 07/21/17 19:34 - Medications Medications: Current Medications Aspirin (Ecotrin) 81 mg PO DAILY [facility] Last Admin: 07/28/17 09:46 Dose: 81 mg Chlorpromazine (Thorazine) 25 mg PO Q6H PRN PRN Reason: Hiccups Clopidogrel Bisulfate (Plavix) 75 mg PO DAILY [facility] Last Admin: 07/28/17 09:46 Dose: 75 mg Demeclocycline HCl (Declomycin) 150 mg PO BID [facility] Last Admin: 07/28/17 09:47 Dose: 150 mg Enoxaparin Sodium (Lovenox) 30 mg SC 1000,2200 [facility] Last Admin: 07/28/17 09:46 Dose: 30 mg Famotidine (Pepcid) 20 mg PO DAILY [facility] Last Admin: 11/10/17 09:46 Dose: 20 mg Metoprolol Tartrate (Lopressor) 25 mg PO BID [facility] Last Admin: 07/28/17 09:48 Dose: 25 mg Oxycodone HCl (Oxycodone Immediate Release Tab) 5 mg PO Q6 PRN PRN Reason: Pain, severe (8-10) Last Admin: 07/27/17 21:41 Dose: 5 mg Rosuvastatin Calcium (Crestor) 10 mg PO HS [facility] Last Admin: 07/27/17 21:33 Dose: 10 mg Tolvaptan (Samsca) 15 mg PO DAILY [facility] Tramadol HCl (Ultram) 50 mg PO Q6H PRN PRN Reason: Pain, moderate (4-7) Last Admin: 07/25/17 19:54 Dose: 50 mg Physical Exam - Constitutional Appears: Chronically Ill - Head Exam Head Exam: ATRAUMATIC, NORMAL INSPECTION, NORMOCEPHALIC - Eye Exam Eye Exam: EOMI, Normal appearance, PERRL Pupil Exam: NORMAL ACCOMODATION, PERRL - ENT Exam ENT Exam: Mucous Membranes Moist, Normal Exam - Neck Exam Neck exam: Positive for: Normal Inspection - Respiratory Exam Respiratory Exam: Clear to Auscultation Bilateral, NORMAL BREATHING PATTERN - Cardiovascular Exam Cardiovascular Exam: REGULAR RHYTHM - GI/Abdominal Exam GI & Abdominal Exam: Distended - Rectal Exam Rectal Exam: Deferred - Extremities Exam Extremities exam: Positive for: normal inspection - Back Exam Back exam: NORMAL INSPECTION - Neurological Exam Neurological exam: Alert, Oriented x3 - Psychiatric Exam Psychiatric exam: Normal Affect, Normal Mood Results - Vital Signs Recent Vital Signs: Last Vital Signs Temp 98.1 F 07/28/17 08:44 Pulse 65 07/28/17 11:00 Resp 20 07/28/17 08:44 BP 118/72 07/28/17 11:00 Pulse Ox 97 07/28/17 11:00 - Labs Result Diagrams: 07/28/17 06:31 07/28/17 06:31 Labs: Laboratory Results - last 24 hr 07/25/17 07/28/17 07/28/17 13:54 06:31 06:31 WBC 6.2 RBC 3.44 L Hgb 11.1 L Hct 32.4 L MCV 94.0 MCH 32.2 H MCHC 34.3 RDW 12.7 Plt Count 110 L D MPV 8.0 Neut % (Auto) 61.4 Lymph % (Auto) 24.7 [place] % (Auto) 11.3 H Eos % (Auto) 1.8 Baso % (Auto) 0.8 Neut # 3.8 Lymph # 1.5 [place] # 0.7 Eos # 0.1 Baso # 0.0 Sodium 132 Potassium 4.4 Chloride 98 Carbon Dioxide 23 Anion Gap 16 BUN 7 L Creatinine 0.5 L Est GFR ( Amer) > 60 Est GFR (Non-Af Amer) > 60 Random Glucose 105 Calcium 8.6 Phosphorus 4.0 Magnesium 1.9 Total Bilirubin 0.8 AST 69 H ALT 61 Alkaline Phosphatase 524 H 395 H Total Protein 7.1 Albumin 3.7 Globulin 3.4 Albumin/Globulin Ratio 1.1 Assessment & Plan - Assessment and Plan (Free Text) Assessment: Palliative consult Code status Unknown, Full Code, there is no advance directive on chart I reviewed medical records, all diagnostic studies, examined and interviewed patient, translation provided by his son at bed side. Patient is alert, oriented in no acute distress, looking chronically sick. Physical exam revealed mildly distended abdomen with active bowel sounds. patient denies abdominal pain/ constipation and reports good appetite. Family brought in home made food as patient does not like hospital's food. Patient reports left groin pain worse with ambulation. Denies chest pain, cough or SOB. Oxycodone and Tramadol PRN on board. Patient is fallowed by Doctor Bae as an outpatient and is on chemo Tx. I elicited patent's knowledge about his condition and he was focused on his Na level as a reason for his admission. Patient has not used word Cancer nor mentioned his chemo Tx. Patient's son at bed side also did not want patient's disease to be discussed in patient's present. On the previous admission when I met with this patient for the first time, the family was the same way, hiding diagnose from the patient. I further discussed patient's and family concerns regarding further care. The son is glad that patient lives with his daughter and has some help. The patient and the family were under the impression that patient could stay here indefinitelly " as patient feels safer here". I corrected their knowledge regarding it and explained the need for an outpatient treatment. I further provided more information regarding the cancer and its expected path of progression and suggested that a time goes on, patient may need more help with ADLs. Son asked me no to discuss Code status as he believes hat would make patient more upset. Impression * This is a patient newly diagnosed with metastatic cancer, on chemo Tx * Patient denies any acute symptoms except the left groin pain which may be chemo Tx related * Family is over protective and does not want cancer discussion in front of the patient * Patient him self does not want to talk about his disease either * There is a legitimate fear in patient and his son and they both find comfort in avoiding the " cancer diagnosis " as an subject * Patient and family are focused on cure of cancer. Plan * Symptomatic Tx * Full Code * Patient seems stable for discharge home
[2017-07-28] MEDS: oxyCODONE 5 mg Immediate Release Tab PO PRN (16:23)
--- NOTE | 2017-07-28 16:59 | RAD ---
PROCEDURE: Left Hip with pelvis X-ray Radiographs. HISTORY: left hip pain COMPARISON: None. FINDINGS: BONES: No acute fracture or destructive bony lesion identified. Pubic symphysis appears intact. JOINTS: Advanced degenerative joint changes seen the bilateral hip and sacroiliac joints symmetrically. No dislocation left hip joint. SOFT TISSUES: Normal. OTHER FINDINGS: None. IMPRESSION: No acute fracture or dislocation left hip joint with the pelvic ring appearing intact as well. Advanced degenerative changes seen the bilateral sacroiliac and hip joints as described above.
--- NOTE | 2017-07-28 21:05 | CP.PCM.PN ---
Subjective - Date & Time of Evaluation Date of Evaluation: 07/28/17 Time of Evaluation: 07:00 - Subjective Subjective: clinically same Objective - Vital Signs/Intake and Output Vital Signs (last 24 hours): Temp Pulse Resp BP Pulse Ox 98.5 F 82 20 117/66 97 07/28/17 16:00 07/28/17 16:00 07/28/17 16:00 07/28/17 17:15 07/28/17 16:00 Intake and Output: 07/28/17 07/29/17 18:59 06:59 Intake Total 400 Balance 400 - Medications Medications: Current Medications Aspirin (Ecotrin) 81 mg PO DAILY [facility] Last Admin: 07/28/17 09:46 Dose: 81 mg Chlorpromazine (Thorazine) 25 mg PO Q6H PRN PRN Reason: Hiccups Clopidogrel Bisulfate (Plavix) 75 mg PO DAILY [facility] Last Admin: 07/28/17 09:46 Dose: 75 mg Demeclocycline HCl (Declomycin) 150 mg PO BID [facility] Last Admin: 07/28/17 17:15 Dose: 150 mg Enoxaparin Sodium (Lovenox) 30 mg SC 1000,2200 [facility] Last Admin: 07/28/17 09:46 Dose: 30 mg Famotidine (Pepcid) 20 mg PO DAILY [facility] Last Admin: 07/28/17 09:46 Dose: 20 mg Metoprolol Tartrate (Lopressor) 25 mg PO BID [facility] Last Admin: 07/28/17 17:15 Dose: 25 mg Oxycodone HCl (Oxycodone Immediate Release Tab) 5 mg PO Q6 PRN PRN Reason: Pain, severe (8-10) Last Admin: 07/28/17 16:23 Dose: 5 mg Rosuvastatin Calcium (Crestor) 10 mg PO HS [facility] Last Admin: 07/27/17 21:33 Dose: 10 mg Tramadol HCl (Ultram) 50 mg PO Q6H PRN PRN Reason: Pain, moderate (4-7) Last Admin: 07/25/17 19:54 Dose: 50 mg - Labs Labs: 07/28/17 06:31 07/28/17 06:31 - Constitutional Appears: Well - Head Exam Head Exam: ATRAUMATIC, NORMAL INSPECTION, NORMOCEPHALIC - Eye Exam Eye Exam: EOMI, Normal appearance, PERRL Pupil Exam: NORMAL ACCOMODATION, PERRL - ENT Exam ENT Exam: Mucous Membranes Moist, Normal Exam - Neck Exam Neck Exam: Full ROM, Normal Inspection. absent: Lymphadenopathy - Respiratory Exam Respiratory Exam: Decreased Breath Sounds - Cardiovascular Exam Cardiovascular Exam: REGULAR RHYTHM, +S1, +S2. absent: Murmur - GI/Abdominal Exam GI & Abdominal Exam: Soft, Normal Bowel Sounds. absent: Tenderness - Rectal Exam Rectal Exam: Deferred Assessment and Plan (1) Hepatomegaly Status: Acute (2) Hiccups Status: Acute (3) Hyponatremia Status: Acute (4) Intractable hiccups Status: Acute (5) Leukopenia Status: Acute (6) Metastatic cancer to liver Status: Acute (7) Small cell lung cancer Status: Acute (8) Thrombocytopenia Status: Acute (9) Abdominal pain Status: Acute (10) Anemia Status: Acute - Assessment and Plan (Free Text) Plan: Palliative consult done. Advised symptomatic treatment, full code and can be discharged home. Continue chlorpromazine, demeclocycline, aspirin and clopidogrel. Antihypertensive and supportive medications.
[2017-07-28 22:05] LABS: BONE ISOENZYME 14 % (28-66); INTESTINAL ISOENZYME 0 % (1-24); LIVER ISOENZYME 67 % (25-69); MACROHEPATIC ISOENZYME 19 % (<=0); PLACENTAL ISOENZYME 0 % (<=0)
[2017-07-29 07:59] LABS: BASO % 0.4 % (0.0-2.0); EOS # 0.1 K/uL (0.0-0.7); EOS % 1.8 % (0.0-4.0); HEMATOCRIT 31.8 % (35.0-51.0); LYMPH # 1.9 K/uL (1.0-4.3); LYMPH % 23.6 % (20.0-40.0); MEAN CELL VOLUME 94.6 fL (80.0-94.0); MEAN CORPUSCULAR HGB CONC 34.9 g/dL (33.0-37.0); MEAN PLATELET VOLUME 7.9 fL (7.2-11.7); MONO # 1.1 K/uL (0.0-0.8); MONO % 14.1 % (0.0-10.0); RED CELL DISTRIBUTION WIDTH 13.3 % (11.5-14.5); WHITE BLOOD COUNT 8.1 K/uL (4.8-10.8)
[2017-07-29 08:03] LABS: CHLORIDE 101 mmol/L (98-107)
[2017-07-29 08:04] LABS: POTASSIUM 3.8 mmol/L (3.6-5.2); SODIUM 134 mmol/L (132-148)
[2017-07-29 08:06] LABS: ALKALINE PHOSPHATASE 407 U/L (38-126); AST/SGOT 65 U/L (17-59); BILIRUBIN,TOTAL 0.6 mg/dL (0.2-1.3); BLOOD UREA NITROGEN 9 mg/dL (9-20); CARBON DIOXIDE 24 mmol/L (22-30); GFR AFRICAN-AMERICAN > 60; GLUCOSE,RANDOM 120 mg/dL (75-110); TOTAL PROTEIN 7.1 g/dL (6.3-8.3)
[2017-07-29 08:07] LABS: ALT/SGPT 62 U/L (21-72); CALCIUM 8.5 mg/dl (8.6-10.4); MAGNESIUM 1.9 mg/dL (1.6-2.3); PHOSPHOROUS 3.8 mg/dL (2.5-4.5)
--- NOTE | 2017-07-29 08:37 | CARD ---
APPROVED REPORT EKG Measurement Heart [id number] <Conclusion> Sinus rhythm with 1st degree AV block Otherwise normal ECG
[2017-07-29] MEDS ORDERED: Tolvaptan 15 MG TAB PO SCH (10:00)
[2017-07-29] MEDS: Enoxaparin 30 mg Syringe SC SCH ×2 (11:06→21:36)
[2017-07-29] MEDS ORDERED: Gadodiamide 287 MG/ML VIAL (15ML) IV ONE (14:15)
--- NOTE | 2017-07-29 15:33 | MRI ---
PROCEDURE: MRI BRAIN WITH AND WITHOUT CONTRAST HISTORY: rule out mets COMPARISON: Noncontrast head CT from 07/26/2017. TECHNIQUE: Multiplanar, multisequence MR images of the brain were obtained with and without intravenous contrast enhancement. FINDINGS: HEMORRHAGE: None DWI: No evidence of an acute or early subacute infarction. BRAIN PARENCHYMA: There are mild chronic microangiopathic changes. There is no mass, mass effect or abnormal extra-axial fluid collection. The midline sagittal structures are normal. ENHANCEMENT: No abnormal intracranial enhancement. VENTRICLES: There is mild age-related global parenchymal volume loss and proportionate enlargement of the ventricles and cortical sulci. There is a cavum septum pellucidum. CRANIUM: There is normal bone marrow signal pattern. ORBITS: Grossly unremarkable. PARANASAL SINUSES/MASTOIDS: Mild mucosal thickening in the visualized right maxillary sinus. The remaining paranasal sinuses are predominantly clear. Bilateral mastoid air cells are underdeveloped. VASCULAR SYSTEM: There are normal signal voids in the larger intracranial arteries. OTHER FINDINGS: None . IMPRESSION: No acute intracranial abnormality. Mild chronic microangiopathic changes and mild age-related global parenchymal volume loss.
--- NOTE | 2017-07-29 18:22 | CP.PCM.PN ---
Subjective - Date & Time of Evaluation Date of Evaluation: 07/29/17 Time of Evaluation: 07:00 - Subjective Subjective: clinically same Objective - Vital Signs/Intake and Output Vital Signs (last 24 hours): Temp Pulse Resp BP Pulse Ox 98.4 F 68 20 122/61 97 07/29/17 15:00 07/29/17 15:00 07/29/17 15:00 07/29/17 17:58 07/29/17 15:00 Intake and Output: 07/29/17 07/29/17 06:59 18:59 Intake Total 500 450 Balance 500 450 - Medications Medications: Current Medications Aspirin (Ecotrin) 81 mg PO DAILY [facility] Last Admin: 07/29/17 11:06 Dose: 81 mg Chlorpromazine (Thorazine) 25 mg PO Q6H PRN PRN Reason: Hiccups Clopidogrel Bisulfate (Plavix) 75 mg PO DAILY [facility] Last Admin: 07/29/17 11:06 Dose: 75 mg Demeclocycline HCl (Declomycin) 150 mg PO BID [facility] Last Admin: 07/29/17 11:05 Dose: 150 mg Enoxaparin Sodium (Lovenox) 30 mg SC 1000,2200 [facility] Last Admin: 07/29/17 11:06 Dose: 30 mg Famotidine (Pepcid) 20 mg PO DAILY [facility] Last Admin: 07/29/17 11:06 Dose: 20 mg Metoprolol Tartrate (Lopressor) 25 mg PO BID [facility] Last Admin: 07/29/17 17:58 Dose: 25 mg Oxycodone HCl (Oxycodone Immediate Release Tab) 5 mg PO Q6 PRN PRN Reason: Pain, severe (8-10) Last Admin: 07/28/17 16:23 Dose: 5 mg Rosuvastatin Calcium (Crestor) 10 mg PO HS [facility] Last Admin: 07/28/17 21:04 Dose: 10 mg Tramadol HCl (Ultram) 50 mg PO Q6H PRN PRN Reason: Pain, moderate (4-7) Last Admin: 07/29/17 18:01 Dose: 50 mg - Labs Labs: 07/29/17 07:38 07/29/17 07:38 - Constitutional Appears: Well - Head Exam Head Exam: ATRAUMATIC, NORMAL INSPECTION, NORMOCEPHALIC - Eye Exam Eye Exam: EOMI, Normal appearance, PERRL Pupil Exam: NORMAL ACCOMODATION, PERRL - ENT Exam ENT Exam: Mucous Membranes Moist, Normal Exam - Neck Exam Neck Exam: Full ROM, Normal Inspection. absent: Lymphadenopathy - Respiratory Exam Respiratory Exam: Decreased Breath Sounds - Cardiovascular Exam Cardiovascular Exam: REGULAR RHYTHM, +S1, +S2. absent: Murmur - GI/Abdominal Exam GI & Abdominal Exam: Soft, Normal Bowel Sounds. absent: Tenderness - Rectal Exam Rectal Exam: Deferred Assessment and Plan (1) Hepatomegaly Status: Acute (2) Hiccups Status: Acute (3) Hyponatremia Status: Acute (4) Intractable hiccups Status: Acute (5) Leukopenia Status: Acute (6) Metastatic cancer to liver Status: Acute (7) Small cell lung cancer Status: Acute (8) Thrombocytopenia Status: Acute (9) Abdominal pain Status: Acute (10) Anemia Status: Acute - Assessment and Plan (Free Text) Plan: Patient examined. Patient feeling better. Continue chlorpromazine, demeclocycline, aspirin and clopidogrel. Antihypertensive and supportive medications.
[2017-07-30] MEDS: Enoxaparin 30 mg Syringe SC SCH ×2 (10:29→21:24)
--- NOTE | 2017-07-30 13:24 | CP.PCM.PN ---
Subjective - Date & Time of Evaluation Date of Evaluation: 07/30/17 Time of Evaluation: 07:00 - Subjective Subjective: clinically same Objective - Vital Signs/Intake and Output Vital Signs (last 24 hours): Temp Pulse Resp BP Pulse Ox 98.2 F 74 20 109/63 99 07/30/17 08:31 07/30/17 08:31 07/30/17 08:31 07/30/17 10:29 07/30/17 08:31 Intake and Output: 07/30/17 07/30/17 06:59 18:59 Intake Total 250 Balance 250 - Medications Medications: Current Medications Aspirin (Ecotrin) 81 mg PO DAILY [facility] Last Admin: 07/30/17 10:29 Dose: 81 mg Chlorpromazine (Thorazine) 25 mg PO Q6H PRN PRN Reason: Hiccups Clopidogrel Bisulfate (Plavix) 75 mg PO DAILY [facility] Last Admin: 07/30/17 10:29 Dose: 75 mg Demeclocycline HCl (Declomycin) 150 mg PO BID [facility] Last Admin: 07/30/17 10:29 Dose: 150 mg Enoxaparin Sodium (Lovenox) 30 mg SC 1000,2200 [facility] Last Admin: 07/30/17 10:29 Dose: 30 mg Famotidine (Pepcid) 20 mg PO DAILY [facility] Last Admin: 07/30/17 10:29 Dose: 20 mg Metoprolol Tartrate (Lopressor) 25 mg PO BID [facility] Last Admin: 07/30/17 10:29 Dose: 25 mg Oxycodone HCl (Oxycodone Immediate Release Tab) 5 mg PO Q6 PRN PRN Reason: Pain, severe (8-10) Last Admin: 07/28/17 16:23 Dose: 5 mg Rosuvastatin Calcium (Crestor) 10 mg PO HS [facility] Last Admin: 07/29/17 21:36 Dose: 10 mg Tramadol HCl (Ultram) 50 mg PO Q6H PRN PRN Reason: Pain, moderate (4-7) Last Admin: 07/30/17 12:58 Dose: 50 mg - Labs Labs: 07/29/17 07:38 07/29/17 07:38 - Constitutional Appears: Well - Head Exam Head Exam: ATRAUMATIC, NORMAL INSPECTION, NORMOCEPHALIC - Eye Exam Eye Exam: EOMI, Normal appearance, PERRL Pupil Exam: NORMAL ACCOMODATION, PERRL - ENT Exam ENT Exam: Mucous Membranes Moist, Normal Exam - Neck Exam Neck Exam: Full ROM, Normal Inspection. absent: Lymphadenopathy - Respiratory Exam Respiratory Exam: Decreased Breath Sounds - Cardiovascular Exam Cardiovascular Exam: REGULAR RHYTHM, +S1, +S2 - GI/Abdominal Exam GI & Abdominal Exam: Soft, Diminished Bowel Sounds - Rectal Exam Rectal Exam: Deferred Assessment and Plan (1) Hepatomegaly Status: Acute (2) Hiccups Status: Acute (3) Hyponatremia Status: Acute (4) Intractable hiccups Status: Acute (5) Leukopenia Status: Acute (6) Metastatic cancer to liver Status: Acute (7) Small cell lung cancer Status: Acute (8) Thrombocytopenia Status: Acute (9) Abdominal pain Status: Acute (10) Anemia Status: Acute - Assessment and Plan (Free Text) Plan: Patient examined. Patient feeling better. Continue chlorpromazine and demeclocycline. Aspirin and clopidogrel. Antihypertensive and supportive medications.
--- NOTE | 2017-07-30 19:48 | CP.PCM.PN ---
Subjective - Date & Time of Evaluation Date of Evaluation: 07/29/17 Time of Evaluation: 17:00 - Subjective Subjective: Feeling better Objective - Vital Signs/Intake and Output Vital Signs (last 24 hours): Temp Pulse Resp BP Pulse Ox 97.9 F 65 20 113/61 98 07/30/17 15:00 07/30/17 15:00 07/30/17 15:00 07/30/17 17:36 07/30/17 15:00 Intake and Output: 07/30/17 07/31/17 18:59 06:59 Intake Total 500 Balance 500 - Medications Medications: Current Medications Aspirin (Ecotrin) 81 mg PO DAILY [facility] Last Admin: 07/30/17 10:29 Dose: 81 mg Chlorpromazine (Thorazine) 25 mg PO Q6H PRN PRN Reason: Hiccups Clopidogrel Bisulfate (Plavix) 75 mg PO DAILY [facility] Last Admin: 07/30/17 10:29 Dose: 75 mg Demeclocycline HCl (Declomycin) 150 mg PO BID [facility] Last Admin: 07/30/17 17:36 Dose: 150 mg Enoxaparin Sodium (Lovenox) 30 mg SC 1000,2200 [facility] Last Admin: 07/30/17 10:29 Dose: 30 mg Famotidine (Pepcid) 20 mg PO DAILY [facility] Last Admin: 07/30/17 10:29 Dose: 20 mg Metoprolol Tartrate (Lopressor) 25 mg PO BID [facility] Last Admin: 07/30/17 17:36 Dose: 25 mg Oxycodone HCl (Oxycodone Immediate Release Tab) 5 mg PO Q6 PRN PRN Reason: Pain, severe (8-10) Last Admin: 07/28/17 16:23 Dose: 5 mg Rosuvastatin Calcium (Crestor) 10 mg PO HS [facility] Last Admin: 07/29/17 21:36 Dose: 10 mg Tramadol HCl (Ultram) 50 mg PO Q6H PRN PRN Reason: Pain, moderate (4-7) Last Admin: 07/30/17 12:58 Dose: 50 mg - Labs Labs: 07/29/17 07:38 07/29/17 07:38 - Head Exam Head Exam: ATRAUMATIC - Eye Exam Eye Exam: Normal appearance - ENT Exam ENT Exam: Mucous Membranes Dry - Respiratory Exam Respiratory Exam: NORMAL BREATHING PATTERN - Cardiovascular Exam Cardiovascular Exam: +S1, +S2 - GI/Abdominal Exam GI & Abdominal Exam: Normal Bowel Sounds - Extremities Exam Extremities Exam: Normal Inspection Assessment and Plan (1) Anemia Assessment & Plan: chronic disease and chemotherapy Status: Acute (2) Thrombocytopenia Assessment & Plan: resolving secondary to chemotherapy Status: Acute (3) Small cell lung cancer Assessment & Plan: stage IV outpatient treatment Status: Acute
--- NOTE | 2017-07-30 19:49 | CP.PCM.PN ---
Subjective - Date & Time of Evaluation Date of Evaluation: 07/30/17 Time of Evaluation: 19:00 - Subjective Subjective: No compliants, seen eating Objective - Vital Signs/Intake and Output Vital Signs (last 24 hours): Temp Pulse Resp BP Pulse Ox 97.9 F 65 20 113/61 98 07/30/17 15:00 07/30/17 15:00 07/30/17 15:00 07/30/17 17:36 07/30/17 15:00 Intake and Output: 07/30/17 07/31/17 18:59 06:59 Intake Total 500 Balance 500 - Medications Medications: Current Medications Aspirin (Ecotrin) 81 mg PO DAILY [facility] Last Admin: 07/30/17 10:29 Dose: 81 mg Chlorpromazine (Thorazine) 25 mg PO Q6H PRN PRN Reason: Hiccups Clopidogrel Bisulfate (Plavix) 75 mg PO DAILY [facility] Last Admin: 07/30/17 10:29 Dose: 75 mg Demeclocycline HCl (Declomycin) 150 mg PO BID [facility] Last Admin: 07/30/17 17:36 Dose: 150 mg Enoxaparin Sodium (Lovenox) 30 mg SC 1000,2200 [facility] Last Admin: 07/30/17 10:29 Dose: 30 mg Famotidine (Pepcid) 20 mg PO DAILY [facility] Last Admin: 07/30/17 10:29 Dose: 20 mg Metoprolol Tartrate (Lopressor) 25 mg PO BID [facility] Last Admin: 07/30/17 17:36 Dose: 25 mg Oxycodone HCl (Oxycodone Immediate Release Tab) 5 mg PO Q6 PRN PRN Reason: Pain, severe (8-10) Last Admin: 07/28/17 16:23 Dose: 5 mg Rosuvastatin Calcium (Crestor) 10 mg PO HS [facility] Last Admin: 07/29/17 21:36 Dose: 10 mg Tramadol HCl (Ultram) 50 mg PO Q6H PRN PRN Reason: Pain, moderate (4-7) Last Admin: 07/30/17 12:58 Dose: 50 mg - Labs Labs: 07/29/17 07:38 07/29/17 07:38 - Head Exam Head Exam: ATRAUMATIC - Eye Exam Eye Exam: Normal appearance - ENT Exam ENT Exam: Mucous Membranes Dry - Respiratory Exam Respiratory Exam: NORMAL BREATHING PATTERN - Cardiovascular Exam Cardiovascular Exam: +S1, +S2 - GI/Abdominal Exam GI & Abdominal Exam: Normal Bowel Sounds - Extremities Exam Extremities Exam: Normal Inspection Assessment and Plan (1) Anemia Assessment & Plan: chronic disease and chemotherapy Status: Acute (2) Thrombocytopenia Assessment & Plan: secondary to chemotherapy Status: Acute (3) Small cell lung cancer Assessment & Plan: stage IV outpatient treatment Status: Acute
[2017-07-31 07:31] VITALS: PULSE 69; TEMP 98.5; O2SAT 99
--- NOTE | 2017-07-31 09:46 | CP.PCM.PN ---
<Jhonny Fournieren Diamante - Last Filed: 07/31/17 09:25> Subjective - Date & Time of Evaluation Date of Evaluation: 07/31/17 Time of Evaluation: 09:10 - Subjective Subjective: PGY3 Medicine Note - Dr. Nicole Mccartney's service: Patient seen and examined in hallway this AM. Patient was sitting on the ledge at the end of the hallway next to his room with his walker. Patient reports feeling well except a cramp in his right groin. Patient denies fever, chills, chest pain, SOB. Objective - Vital Signs/Intake and Output Vital Signs (last 24 hours): Temp Pulse Resp BP Pulse Ox 98.5 F 69 20 121/61 99 07/31/17 07:29 07/31/17 07:29 07/31/17 07:29 07/31/17 07:29 07/31/17 07:29 - Medications Medications: Current Medications Aspirin (Ecotrin) 81 mg PO DAILY [facility] Last Admin: 07/30/17 10:29 Dose: 81 mg Chlorpromazine (Thorazine) 25 mg PO Q6H PRN PRN Reason: Hiccups Clopidogrel Bisulfate (Plavix) 75 mg PO DAILY [facility] Last Admin: 07/30/17 10:29 Dose: 75 mg Demeclocycline HCl (Declomycin) 150 mg PO BID [facility] Last Admin: 07/30/17 17:36 Dose: 150 mg Enoxaparin Sodium (Lovenox) 30 mg SC 1000,2200 [facility] Last Admin: 07/30/17 21:24 Dose: 30 mg Famotidine (Pepcid) 20 mg PO DAILY [facility] Last Admin: 07/30/17 10:29 Dose: 20 mg Metoprolol Tartrate (Lopressor) 25 mg PO BID [facility] Last Admin: 07/30/17 17:36 Dose: 25 mg Oxycodone HCl (Oxycodone Immediate Release Tab) 5 mg PO Q6 PRN PRN Reason: Pain, severe (8-10) Last Admin: 07/28/17 16:23 Dose: 5 mg Rosuvastatin Calcium (Crestor) 10 mg PO HS [facility] Last Admin: 07/30/17 21:24 Dose: 10 mg Tramadol HCl (Ultram) 50 mg PO Q6H PRN PRN Reason: Pain, moderate (4-7) Last Admin: 07/30/17 12:58 Dose: 50 mg - Labs Labs: 07/29/17 07:38 07/29/17 07:38 - Constitutional Appears: Non-toxic, No Acute Distress - Head Exam Head Exam: NORMAL INSPECTION - Eye Exam Eye Exam: EOMI - ENT Exam ENT Exam: Mucous Membranes Moist - Respiratory Exam Respiratory Exam: Clear to Ausculation Bilateral, NORMAL BREATHING PATTERN. absent: Rales, Rhonchi, Wheezes - Cardiovascular Exam Cardiovascular Exam: REGULAR RHYTHM, +S1, +S2. absent: Gallop, Rubs, Murmur - GI/Abdominal Exam GI & Abdominal Exam: Soft, Normal Bowel Sounds. 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 Shahida Bae- recs appreciated. -resolved. f/u outpatient Left groin pain Left Hip X ray - no acute fracture or dislocation of left hip joint with the pelvic ring appearing intact as well. Advanced degenerative changes seen in the bilateral sacroliliac and hip joints. (please see full report) Toradol 30mg IM once Headache -head ct 07/26 shows chronic ischemic changes, signs consistent with chronic mastoiditis, cannot definitive exclude mets (please see full report) -MRI 07/29 - no acute intracranial abnormality; mild chronic microangiopathic changes and mild age-related global parenchymal volume loss (please see full report) Calf Pain -dopplers negative (please see full report) Metastasis to Liver -07/06 Liver biopsy showed metastatic cancer -GGT 1025 -Alk phos 380 Metastatic Small Cell Lung Cancer -s/p chemotherapy. -Hematology consult - Dr. Shahida Bae - help appreciated -continue to monitor -palliative care consult. recs appreciated for goals of care. HLD -Crestor 10mg PO HS HTN -Metoprolol 25mg PO BID CAD with bypass graft -ASA 81mg PO daily -Plavix 75mg PO daily -continue metoprolol 25 mg PO BID GI/DVT ppx -Pepcid 20mg PO daily -Lovenox 40mg SC daily All medical management per Dr. Nicole Mccartney <Ko Mccartney S - Last Filed: 07/31/17 16:46> Objective - Vital Signs/Intake and Output Vital Signs (last 24 hours): Temp Pulse Resp BP Pulse Ox 98.5 F 69 20 121/61 99 07/31/17 07:29 07/31/17 07:29 07/31/17 07:29 07/31/17 09:55 07/31/17 07:29 Intake and Output: 07/31/17 07/31/17 06:59 18:59 Intake Total 480 Balance 480 - Medications Medications: Current Medications Aspirin (Ecotrin) 81 mg PO DAILY [facility] Last Admin: 07/31/17 09:55 Dose: 81 mg Chlorpromazine (Thorazine) 25 mg PO Q6H PRN PRN Reason: Hiccups Clopidogrel Bisulfate (Plavix) 75 mg PO DAILY [facility] Last Admin: 07/31/17 09:55 Dose: 75 mg Demeclocycline HCl (Declomycin) 150 mg PO BID [facility] Last Admin: 07/31/17 09:57 Dose: 150 mg Enoxaparin Sodium (Lovenox) 30 mg SC 1000,2200 [facility] Last Admin: 07/31/17 09:55 Dose: 30 mg Famotidine (Pepcid) 20 mg PO DAILY [facility] Last Admin: 07/31/17 09:54 Dose: 20 mg Metoprolol Tartrate (Lopressor) 25 mg PO BID [facility] Last Admin: 07/31/17 09:55 Dose: 25 mg Oxycodone HCl (Oxycodone Immediate Release Tab) 5 mg PO Q6 PRN PRN Reason: Pain, severe (8-10) Last Admin: 07/28/17 16:23 Dose: 5 mg Rosuvastatin Calcium (Crestor) 10 mg PO HS [facility] Last Admin: 07/30/17 21:24 Dose: 10 mg Tramadol HCl (Ultram) 50 mg PO Q6H PRN PRN Reason: Pain, moderate (4-7) Last Admin: 07/30/17 12:58 Dose: 50 mg - Labs Labs: 07/31/17 13:54 07/31/17 13:54 Assessment and Plan (1) Hepatomegaly Status: Acute (2) Hiccups Status: Acute (3) Hyponatremia Status: Acute (4) Intractable hiccups Status: Acute (5) Leukopenia Status: Acute (6) Metastatic cancer to liver Status: Acute (7) Small cell lung cancer Status: Acute (8) Thrombocytopenia Status: Acute (9) Abdominal pain Status: Acute (10) Anemia Status: Acute Attending/Attestation - Attestation I have personally seen and examined this patient.: Yes I have fully participated in the care of the patient.: Yes I have reviewed all pertinent clinical information, including history, physical exam and plan: Yes Notes (Text): Patient examined. Patient feeling better. Continue chlorpromazine and demeclocycline. Aspirin and clopidogrel. Antihypertensive and supportive treatment.
[2017-07-31] MEDS: Enoxaparin 30 mg Syringe SC SCH (09:55)
[2017-07-31 14:02] LABS: BASO # 0.1 K/uL (0.0-0.2); BASO % 0.8 % (0.0-2.0); EOS # 0.2 K/uL (0.0-0.7); EOS % 1.8 % (0.0-4.0); HEMATOCRIT 36.3 % (35.0-51.0); LYMPH # 2.7 K/uL (1.0-4.3); LYMPH % 29.1 % (20.0-40.0); MEAN CELL VOLUME 95.1 fL (80.0-94.0); MEAN CORPUSCULAR HEMOGLOBIN 31.4 pg (27.0-31.0); MEAN CORPUSCULAR HGB CONC 33.1 g/dL (33.0-37.0); MEAN PLATELET VOLUME 7.6 fL (7.2-11.7); MONO # 1.2 K/uL (0.0-0.8); MONO % 12.8 % (0.0-10.0); NRBC % 0.1 % (0.0-2.0); PLATELET COUNT 157 K/uL (130-400); RED CELL DISTRIBUTION WIDTH 13.1 % (11.5-14.5); WHITE BLOOD COUNT 9.2 K/uL (4.8-10.8)
[2017-07-31 14:40] LABS: CHLORIDE 93 mmol/L (98-107); POTASSIUM 4.4 mmol/L (3.6-5.2); SODIUM 129 mmol/L (132-148)
[2017-07-31 14:42] LABS: AST/SGOT 68 U/L (17-59); BILIRUBIN,TOTAL 0.8 mg/dL (0.2-1.3); CARBON DIOXIDE 25 mmol/L (22-30); GFR AFRICAN-AMERICAN > 60
[2017-07-31 14:43] LABS: ALB/GLOB RATIO 1.1 (1.0-2.1); ALKALINE PHOSPHATASE 435 U/L (38-126); ALT/SGPT 55 U/L (21-72); BLOOD UREA NITROGEN 15 mg/dL (9-20); CALCIUM 8.4 mg/dl (8.6-10.4); GLUCOSE,RANDOM 72 mg/dL (75-110); TOTAL PROTEIN 7.9 g/dL (6.3-8.3)
[2017-07-31 15:21] LABS: EOSINOPHIL 1 % (0-4); METAMYELOCYTE 3 % (0-0); MYELOCYTE 3 % (0-0); NEUTROPHIL 25 % (50-75); REACTIVE LYMPHOCYTES 2 % (0-0); TOTAL CELLS COUNTED 100
[2017-07-31 17:14] VITALS: BP 114/83
== END 2017-07-31 18:09 | disposition home or self-care (01) | DRG 644 ==
LOC: C.ER 19:14 → C.9E 20:48 → C.9I 23:00 → C.3T 07-24 13:15
PROVIDERS: ADMIT Internal Medicine Nephrology; ATTEND Internal Medicine Nephrology
DX: E22.2 Syndrome of inappropriate secretion of antidiuretic hormone (principal); E87.1 Hypo-osmolality and hyponatremia; C78.7 Secondary malignant neoplasm of liver and intrahepatic bile duct; C34.90 Malignant neoplasm of unspecified part of unspecified bronchus or lung; D69.6 Thrombocytopenia, unspecified; H70.10 Chronic mastoiditis, unspecified ear; D64.81 Anemia due to antineoplastic chemotherapy; I10 Essential (primary) hypertension; D63.8 Anemia in other chronic diseases classified elsewhere; F17.210 Nicotine dependence, cigarettes, uncomplicated; Z68.23 Body mass index [BMI] 23.0-23.9, adult; I25.10 Atherosclerotic heart disease of native coronary artery without angina pectoris; D72.819 Decreased white blood cell count, unspecified; E78.5 Hyperlipidemia, unspecified; Z79.02 Long term (current) use of antithrombotics/antiplatelets; Z95.1 Presence of aortocoronary bypass graft

== ENCOUNTER 2017-08-04 09:57 | Inpatient (IN) | payer MEDICARE, OTHER ==
[2017-08-04 09:57] VITALS: BMI 25.9
[2017-08-04] MEDS ORDERED: Sodium Chloride 0.9% 1,000 ML IV ONE ×2 (10:25→12:14)
[2017-08-04] MEDS ORDERED: Sodium Chloride 0.9% 500 ML IV ONE ×4 (10:26→12:11)
--- NOTE | 2017-08-04 10:29 | C.PDOC ---
History Of Present Illness 62 y/o male, with PMHx of lung cancer with metastasis to bone, liver, and pancreas, presents to ED for evaluation of abdominal pain for the past several days. Pt states that his pain is chronic but is worse in the past 3 days. Pt was recently admitted for hyponatremia. Pt is on treatment for cancer. Family states that they do not wish to discuss diagnosis of ca with patient. noted seen by [facility] on preivous admission, full code, and pt had preference ot not discuss dx. Otherwise, denies fever, n/v/d, or any other complaints at this time. Chief Complaint (Nursing): Abdominal Pain History Per: Patient History/Exam Limitations: no limitations Onset/Duration Of Symptoms: Days Current Symptoms Are (Timing): Still Present Location Of Pain/Discomfort: Diffuse Radiation Of Pain To:: None Quality Of Discomfort: "Pain" Associated Symptoms: denies: Loss Of Appetite, Back Pain, Chest Pain, Constipation, Urinary Symptoms Exacerbating Factors: None Alleviating Factors: None Recent travel outside of the [place]: No Additional History Per: Patient Past Medical History Reviewed: Historical Data, Nursing Documentation, Vital Signs Vital Signs: Last Vital Signs Temp 97.7 F 08/06/17 07:00 Pulse 80 08/06/17 07:30 Resp 20 08/06/17 07:00 BP 93/50 L 08/06/17 07:00 Pulse Ox 97 08/06/17 07:00 - Medical History PMH: Arthritis (BACK/ HIP/KNEE), Gastritis, HTN, Hypercholesterolemia, Hyperlipidemia Denies: Chronic Kidney Disease Surgical History: CABG Denies: Pacemaker - [facility] Procedures EXCISION OF LIVER, PERCUTANEOUS APPROACH, DIAGNOSTIC (07/01/17) Family History: States: Unknown Family Hx - Social History Hx Alcohol Use: No Hx Substance Use: No - Immunization History Hx Tetanus Toxoid Vaccination: No Hx Influenza Vaccination: No Hx Pneumococcal Vaccination: No Review Of Systems Except As Marked, All Systems Reviewed And Found Negative. Constitutional: Negative for: Fever, Chills Gastrointestinal: Positive for: Abdominal Pain. Negative for: Nausea, Vomiting , Diarrhea, Constipation Genitourinary: Negative for: Dysuria, Frequency, Hematuria Musculoskeletal: Negative for: Back Pain Physical Exam - Physical Exam Appears: Non-toxic, No Acute Distress Skin: Normal Color, Warm, Dry Head: Atraumatic, Normacephalic Eye(s): bilateral: Normal Inspection Oral Mucosa: Moist Neck: Normal ROM, Supple Chest: Symmetrical Cardiovascular: Rhythm Regular Respiratory: Normal Breath Sounds, No Rales, No Rhonchi, No Wheezing Gastrointestinal/Abdominal: Soft, Tenderness (non-focal), No Guarding, No Rebound Back: No CVA Tenderness Extremity: Normal ROM, No Pedal Edema Neurological/Psych: Oriented x3, Normal Speech, Normal Cognition ED Course And Treatment - Laboratory Results Result Diagrams: 08/05/17 16:43 08/06/17 08:44 O2 Sat by Pulse Oximetry: 96 (on RA) Pulse Ox Interpretation: Normal Medical Decision Making Medical Decision Making: Blood work, UA, Abd & Pelvis CT ordered and reviewed. Pt was given IV fluids, and Morphine. ICU, Dr. Edwards evaluated pt at bedside, and is requesting to given 1gm of sodium PO, repeat na 300: discussed with dr magdi edwards, icu, not icu candidate, chronic hyponatremia 2/ [address] josephine edwards accepts. Disposition - Disposition Disposition: HOSPITALIZED Disposition Time: 17:23 Condition: GUARDED - Clinical Impression Clinical Impression: Hyponatremia, Metastatic cancer to liver, Abdominal pain - Scribe Statement The provider has reviewed the documentation as recorded by the Scribe Antonette Edwards All medical record entries made by the Scribe were at my direction and personally dictated by me. I have reviewed the chart and agree that the record accurately reflects my personal performance of the history, physical exam, medical decision making, and the department course for this patient. I have also personally directed, reviewed, and agree with the discharge instructions and disposition.
[2017-08-04 10:50] LABS: BASO # 0.1 K/uL (0.0-0.2); BASO % 0.6 % (0.0-2.0); EOS # 0.1 K/uL (0.0-0.7); EOS % 1.1 % (0.0-4.0); LYMPH # 1.4 K/uL (1.0-4.3); LYMPH % 14.7 % (20.0-40.0); MEAN CORPUSCULAR HEMOGLOBIN 32.7 pg (27.0-31.0); MEAN CORPUSCULAR HGB CONC 35.4 g/dL (33.0-37.0); MEAN PLATELET VOLUME 8.1 fL (7.2-11.7); MONO # 0.5 K/uL (0.0-0.8); MONO % 5.3 % (0.0-10.0); NRBC % 0.1 % (0.0-2.0); RED CELL DISTRIBUTION WIDTH 13.3 % (11.5-14.5); WHITE BLOOD COUNT 9.8 K/uL (4.8-10.8)
[2017-08-04 10:51] LABS: MEAN CELL VOLUME 92.3 fL (80.0-94.0)
[2017-08-04 10:56] LABS: INR 1.2
[2017-08-04 11:23] LABS: ALKALINE PHOSPHATASE 353 U/L (38-126); ALT/SGPT 37 U/L (21-72); AST/SGOT 75 U/L (17-59); BILIRUBIN,TOTAL 0.7 mg/dL (0.2-1.3); BLOOD UREA NITROGEN 9 mg/dL (9-20); CALCIUM 8.3 mg/dl (8.6-10.4); CARBON DIOXIDE 22 mmol/L (22-30); CHLORIDE 85 mmol/L (98-107); GFR AFRICAN-AMERICAN > 60; GLUCOSE,RANDOM 113 mg/dL (75-110); POTASSIUM 4.1 mmol/L (3.6-5.2); TOTAL PROTEIN 6.8 g/dL (6.3-8.3)
[2017-08-04 12:02] LABS: RBC URINE 8 /hpf (0-3); URINE BILIRUBIN NEGATIVE (NEGATIVE); URINE BLOOD 1+ (NEGATIVE); URINE COLOR Yellow (YELLOW); URINE GLUCOSE (UA) NORMAL (Normal); URINE KETONE NEGATIVE (NEGATIVE); URINE LEUKOCYTE ESTERASE NEG Leu/uL (Negative); URINE PROTEIN NEGATIVE (NEGATIVE); URINE UROBILINOGEN NORMAL mg/dL (0.2-1.0); WBC URINE 1 /hpf (0-5)
[2017-08-04 12:09] LABS: SODIUM 116 mmol/L (132-148)
[2017-08-04] MEDS ORDERED: Iodixanol 320 MG/ML 100 ML BOTTLE IV ONE (12:09)
[2017-08-04] MEDS ORDERED: Tolvaptan 15 MG TAB PO SCH (12:30)
--- NOTE | 2017-08-04 12:56 | CP.CCUPN ---
<Carli Rose - Last Filed: 08/04/17 12:51> CCU Subjective - Physician Review Subjective (Free Text): 62 year old M with PMHx of HTN, Gastritis with GERD, HLD, CAD, Metastatic small cell lung cancer with liver mets, CABG came into ED for abdominal pain. Critical care consulted for hyponatremia found in ED. Patient seen and examined at beside in the ER. Patient denies chest pain, nausea, vomiting, constipation, or diarrhea. PMH: HTN; Gastritis with GERD; HLD; CAD; Metastatic small cell lung cancer PSH: CABG; Liver biopsy (07/01/17) SH: No illegal drug use; Light smoker; Quit Alcohol 5-10 years ago; FH: Brother with Liver cirrhosis Allergies: NKDA 08/04/17 13:04 CCU Objective - Vital Signs / Intake & Output Vital Signs (Last 4 hours): Vital Signs Temp Pulse Resp BP Pulse Ox 08/04/17 12:03 96 08/04/17 11:46 97.4 F L 69 16 97/47 L 98 08/04/17 10:48 70 20 100/43 L 98 08/04/17 10:21 72 20 93/49 L 96 08/04/17 10:01 97.8 F 74 18 90/51 L 98 Intake and Output (Last 8hrs): Intake & Output 08/03/17 08/04/17 08/04/17 22:59 06:59 14:59 Weight 125 lb - Physical Exam Head: Positive for: Atraumatic, Normocephalic Pupils: Positive for: PERRL Extroacular Muscles: Positive for: EOMI Mouth: Positive for: Moist Mucous Membranes Respiratory/Chest: Positive for: Clear to Auscultation. Negative for: Respiratory Distress, Accessory Muscle Use Cardiovascular: Positive for: Normal S1, S2 Abdomen: Negative for: Tenderness, Distention Upper Extremity: Positive for: Normal Inspection Lower Extremity: Positive for: Normal Inspection Skin: Positive for: Warm, Dry, Normal Color Psychiatric: Positive for: Alert, Oriented x 3 - Medications Active Medications: Active Medications Generic Name Dose Route Start Last Admin Trade Name Freq PRN Reason Stop Dose Admin Demeclocycline HCl 150 mg 08/04/17 14:00 Declomycin PO QID AWILDA Sodium Chloride 1,000 mls @ 1,000 mls/hr 08/04/17 12:14 Sodium Chloride 0.9% IV 08/04/17 13:13 .Q1H ONE Sodium Chloride 1 gm 08/04/17 12:15 08/04/17 12:20 Sodium Chloride Tab PO Not Given Q8H AWILDA Tolvaptan 15 mg 08/04/17 12:30 Samsca PO 08/06/17 12:16 DAILY AWILDA - Patient Studies Lab Studies: Lab Studies 08/04/17 08/04/17 08/04/17 Range/Units 12:02 11:47 11:47 WBC (4.8-10.8) K/uL RBC (4.40-5.90) Mil/uL Hgb (12.0-18.0) g/dL Hct (35.0-51.0) % MCV (80.0-94.0) fL MCH (27.0-31.0) pg MCHC (33.0-37.0) g/dL RDW (11.5-14.5) % Plt Count (130-400) K/uL MPV (7.2-11.7) fL Neut % (Auto) (50.0-75.0) % Lymph % (Auto) (20.0-40.0) % [place] % (Auto) (0.0-10.0) % Eos % (Auto) (0.0-4.0) % Baso % (Auto) (0.0-2.0) % Neut # (1.8-7.0) K/uL Lymph # (1.0-4.3) K/uL [place] # (0.0-0.8) K/uL Eos # (0.0-0.7) K/uL Baso # (0.0-0.2) K/uL PT (9.7-12.2) SECONDS INR APTT (21-34) SECONDS Sodium (132-148) mmol/L Potassium (3.6-5.2) mmol/L Chloride (98-107) mmol/L Carbon Dioxide (22-30) mmol/L Anion Gap (10-20) BUN (9-20) mg/dL Creatinine (0.8-1.5) mg/dL Est GFR ( Amer) Est GFR (Non-Af Amer) Random Glucose (75-110) mg/dL Serum Osmolality 259 L (272-300) mosm/kg Calcium (8.6-10.4) mg/dl Total Bilirubin (0.2-1.3) mg/dL AST (17-59) U/L ALT (21-72) U/L Alkaline Phosphatase (38-126) U/L Total Protein (6.3-8.3) g/dL Albumin (3.5-5.0) g/dL Globulin (2.2-3.9) gm/dL Albumin/Globulin Ratio (1.0-2.1) Lipase (23-300) U/L Urine Color Yellow (YELLOW) Urine Clarity Clear (Clear) Urine pH 5.0 (5.0-8.0) Ur Specific [place] 1.017 (1.003-1.030) Urine Protein Negative (NEGATIVE) mg/dL Urine Glucose (UA) Normal (Normal) mg/dL Urine Ketones Negative (NEGATIVE) mg/dL Urine Blood 1+ H (NEGATIVE) Urine Nitrate Negative (NEGATIVE) Urine Bilirubin Negative (NEGATIVE) Urine Urobilinogen Normal (0.2-1.0) mg/dL Ur Leukocyte Esterase Neg (Negative) Maria Del Rosario/uL Urine WBC (Auto) 1 (0-5) /hpf Urine RBC (Auto) 8 H (0-3) /hpf Urine Osmolality 546 (300-1000) mosm/kg Ur Random Sodium 59 mmol/L 08/04/17 08/04/17 08/04/17 Range/Units 10:40 10:40 10:40 WBC 9.8 (4.8-10.8) K/uL RBC 3.14 L (4.40-5.90) Mil/uL Hgb 10.3 L (12.0-18.0) g/dL Hct 29.0 L (35.0-51.0) % MCV 92.3 D (80.0-94.0) fL MCH 32.7 H (27.0-31.0) pg MCHC 35.4 (33.0-37.0) g/dL RDW 13.3 (11.5-14.5) % Plt Count 201 (130-400) K/uL MPV 8.1 (7.2-11.7) fL Neut % (Auto) 78.3 H (50.0-75.0) % Lymph % (Auto) 14.7 L (20.0-40.0) % [place] % (Auto) 5.3 (0.0-10.0) % Eos % (Auto) 1.1 (0.0-4.0) % Baso % (Auto) 0.6 (0.0-2.0) % Neut # 7.7 H (1.8-7.0) K/uL Lymph # 1.4 (1.0-4.3) K/uL [place] # 0.5 (0.0-0.8) K/uL Eos # 0.1 (0.0-0.7) K/uL Baso # 0.1 (0.0-0.2) K/uL PT 13.6 H (9.7-12.2) SECONDS INR 1.2 APTT 28 (21-34) SECONDS Sodium 116 L* (132-148) mmol/L Potassium 4.1 (3.6-5.2) mmol/L Chloride 85 L (98-107) mmol/L Carbon Dioxide 22 (22-30) mmol/L Anion Gap 13 (10-20) BUN 9 (9-20) mg/dL Creatinine 0.5 L (0.8-1.5) mg/dL Est GFR ( Amer) > 60 Est GFR (Non-Af Amer) > 60 Random Glucose 113 H (75-110) mg/dL Serum Osmolality (272-300) mosm/kg Calcium 8.3 L (8.6-10.4) mg/dl Total Bilirubin 0.7 (0.2-1.3) mg/dL AST 75 H (17-59) U/L ALT 37 (21-72) U/L Alkaline Phosphatase 353 H (38-126) U/L Total Protein 6.8 (6.3-8.3) g/dL Albumin 3.5 (3.5-5.0) g/dL Globulin 3.3 (2.2-3.9) gm/dL Albumin/Globulin Ratio 1.0 (1.0-2.1) Lipase 362 H (23-300) U/L Urine Color (YELLOW) Urine Clarity (Clear) Urine pH (5.0-8.0) Ur Specific [place] (1.003-1.030) Urine Protein (NEGATIVE) mg/dL Urine Glucose (UA) (Normal) mg/dL Urine Ketones (NEGATIVE) mg/dL Urine Blood (NEGATIVE) Urine Nitrate (NEGATIVE) Urine Bilirubin (NEGATIVE) Urine Urobilinogen (0.2-1.0) mg/dL Ur Leukocyte Esterase (Negative) Maria Del Rosario/uL Urine WBC (Auto) (0-5) /hpf Urine RBC (Auto) (0-3) /hpf Urine Osmolality (300-1000) mosm/kg Ur Random Sodium mmol/L Laboratory Results - last 24 hr 08/04/17 08/04/17 08/04/17 10:40 10:40 10:40 WBC 9.8 RBC 3.14 L Hgb 10.3 L Hct 29.0 L MCV 92.3 D MCH 32.7 H MCHC 35.4 RDW 13.3 Plt Count 201 MPV 8.1 Neut % (Auto) 78.3 H Lymph % (Auto) 14.7 L [place] % (Auto) 5.3 Eos % (Auto) 1.1 Baso % (Auto) 0.6 Neut # 7.7 H Lymph # 1.4 [place] # 0.5 Eos # 0.1 Baso # 0.1 PT 13.6 H INR 1.2 APTT 28 Sodium 116 L* Potassium 4.1 Chloride 85 L Carbon Dioxide 22 Anion Gap 13 BUN 9 Creatinine 0.5 L Est GFR ( Amer) > 60 Est GFR (Non-Af Amer) > 60 Random Glucose 113 H Serum Osmolality Calcium 8.3 L Total Bilirubin 0.7 AST 75 H ALT 37 Alkaline Phosphatase 353 H Total Protein 6.8 Albumin 3.5 Globulin 3.3 Albumin/Globulin Ratio 1.0 Lipase 362 H Urine Color Urine Clarity Urine pH Ur Specific [place] Urine Protein Urine Glucose (UA) Urine Ketones Urine Blood Urine Nitrate Urine Bilirubin Urine Urobilinogen Ur Leukocyte Esterase Urine WBC (Auto) Urine RBC (Auto) Urine Osmolality Ur Random Sodium 08/04/17 08/04/17 08/04/17 11:47 11:47 12:02 WBC RBC Hgb Hct MCV MCH MCHC RDW Plt Count MPV Neut % (Auto) Lymph % (Auto) [place] % (Auto) Eos % (Auto) Baso % (Auto) Neut # Lymph # [place] # Eos # Baso # PT INR APTT Sodium Potassium Chloride Carbon Dioxide Anion Gap BUN Creatinine Est GFR ( Amer) Est GFR (Non-Af Amer) Random Glucose Serum Osmolality 259 L Calcium Total Bilirubin AST ALT Alkaline Phosphatase Total Protein Albumin Globulin Albumin/Globulin Ratio Lipase Urine Color Yellow Urine Clarity Clear Urine pH 5.0 Ur Specific [place] 1.017 Urine Protein Negative Urine Glucose (UA) Normal Urine Ketones Negative Urine Blood 1+ H Urine Nitrate Negative Urine Bilirubin Negative Urine Urobilinogen Normal Ur Leukocyte Esterase Neg Urine WBC (Auto) 1 Urine RBC (Auto) 8 H Urine Osmolality 546 Ur Random Sodium 59 Review of Systems - Constitutional Constitutional: absent: Fever, Chills, Sweats, Weakness - Cardiovascular Cardiovascular: absent: Chest Pain, Dyspnea - Gastrointestinal Gastrointestinal: Abdominal Pain. absent: Constipation, Diarrhea, Nausea, Vomiting - Genitourinary Genitourinary: absent: Difficulty Urinating - Integumentary Integumentary: absent: Rash Assessment/Plan - Assessment and Plan (Free Text) Assessment: 62 y/o male with PMHx of HTN, Gastritis with GERD, HLD, CAD, Metastatic small cell lung cancer, CABG found to be hyponatremic. 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 Na: 116 patient low risk of seizure due to chronic SIADH patient was not d/c on tolvaptan and demeclocycline, will restart Tolvaptan 15mg po daily Demeclocycline 150mg po QID NS 1L bolus x 2 Sodium chloride 1gm tab po q8h monitor CMP GI: small cell lung ca with mets to liver being treated with chemotherapy f/u abd/pelvis CT Heme: patient hemodynamically stable H/H: 10.3 <Divine Mccartney - Last Filed: 08/04/17 15:46> CCU Objective - Vital Signs / Intake & Output Vital Signs (Last 4 hours): Vital Signs Temp Pulse Resp BP Pulse Ox 08/04/17 12:03 96 08/04/17 11:46 97.4 F L 69 16 97/47 L 98 Intake and Output (Last 8hrs): Intake & Output 08/04/17 08/04/17 08/04/17 06:59 14:59 22:59 Weight 125 lb - Medications Active Medications: Active Medications Generic Name Dose Route Start Last Admin Trade Name Freq PRN Reason Stop Dose Admin Demeclocycline HCl 150 mg 08/04/17 14:00 08/04/17 15:02 Declomycin PO 150 mg QID AWILDA Administration Sodium Chloride 1 gm 08/04/17 12:15 08/04/17 12:20 Sodium Chloride Tab PO Not Given Q8H AWILDA Tolvaptan 15 mg 08/04/17 12:30 Samsca PO 08/06/17 12:16 DAILY AWILDA - Patient Studies Lab Studies: Lab Studies 08/04/17 08/04/17 08/04/17 Range/Units 13:45 12:02 11:47 WBC (4.8-10.8) K/uL RBC (4.40-5.90) Mil/uL Hgb (12.0-18.0) g/dL Hct (35.0-51.0) % MCV (80.0-94.0) fL MCH (27.0-31.0) pg MCHC (33.0-37.0) g/dL RDW (11.5-14.5) % Plt Count (130-400) K/uL MPV (7.2-11.7) fL Neut % (Auto) (50.0-75.0) % Lymph % (Auto) (20.0-40.0) % [place] % (Auto) (0.0-10.0) % Eos % (Auto) (0.0-4.0) % Baso % (Auto) (0.0-2.0) % Neut # (1.8-7.0) K/uL Lymph # (1.0-4.3) K/uL [place] # (0.0-0.8) K/uL Eos # (0.0-0.7) K/uL Baso # (0.0-0.2) K/uL PT (9.7-12.2) SECONDS INR APTT (21-34) SECONDS Sodium 115 L* (132-148) mmol/L Potassium 4.2 (3.6-5.2) mmol/L Chloride 88 L (98-107) mmol/L Carbon Dioxide 20 L (22-30) mmol/L Anion Gap 11 (10-20) BUN 9 (9-20) mg/dL Creatinine 0.5 L (0.8-1.5) mg/dL Est GFR ( Amer) > 60 Est GFR (Non-Af Amer) > 60 Random Glucose 69 L (75-110) mg/dL Serum Osmolality 259 L (272-300) mosm/kg Calcium 7.7 L (8.6-10.4) mg/dl Total Bilirubin 0.7 (0.2-1.3) mg/dL AST 69 H (17-59) U/L ALT 53 (21-72) U/L Alkaline Phosphatase 359 H (38-126) U/L Total Protein 6.5 (6.3-8.3) g/dL Albumin 3.2 L (3.5-5.0) g/dL Globulin 3.3 (2.2-3.9) gm/dL Albumin/Globulin Ratio 1.0 (1.0-2.1) Lipase (23-300) U/L Urine Color (YELLOW) Urine Clarity (Clear) Urine pH (5.0-8.0) Ur Specific [place] (1.003-1.030) Urine Protein (NEGATIVE) mg/dL Urine Glucose (UA) (Normal) mg/dL Urine Ketones (NEGATIVE) mg/dL Urine Blood (NEGATIVE) Urine Nitrate (NEGATIVE) Urine Bilirubin (NEGATIVE) Urine Urobilinogen (0.2-1.0) mg/dL Ur Leukocyte Esterase (Negative) Maria Del Rosario/uL Urine WBC (Auto) (0-5) /hpf Urine RBC (Auto) (0-3) /hpf Urine Osmolality 546 (300-1000) mosm/kg Ur Random Sodium 59 mmol/L 08/04/17 08/04/17 08/04/17 Range/Units 11:47 10:40 10:40 WBC (4.8-10.8) K/uL RBC (4.40-5.90) Mil/uL Hgb (12.0-18.0) g/dL Hct (35.0-51.0) % MCV (80.0-94.0) fL MCH (27.0-31.0) pg MCHC (33.0-37.0) g/dL RDW (11.5-14.5) % Plt Count (130-400) K/uL MPV (7.2-11.7) fL Neut % (Auto) (50.0-75.0) % Lymph % (Auto) (20.0-40.0) % [place] % (Auto) (0.0-10.0) % Eos % (Auto) (0.0-4.0) % Baso % (Auto) (0.0-2.0) % Neut # (1.8-7.0) K/uL Lymph # (1.0-4.3) K/uL [place] # (0.0-0.8) K/uL Eos # (0.0-0.7) K/uL Baso # (0.0-0.2) K/uL PT 13.6 H (9.7-12.2) SECONDS INR 1.2 APTT 28 (21-34) SECONDS Sodium 116 L* (132-148) mmol/L Potassium 4.1 (3.6-5.2) mmol/L Chloride 85 L (98-107) mmol/L Carbon Dioxide 22 (22-30) mmol/L Anion Gap 13 (10-20) BUN 9 (9-20) mg/dL Creatinine 0.5 L (0.8-1.5) mg/dL Est GFR ( Amer) > 60 Est GFR (Non-Af Amer) > 60 Random Glucose 113 H (75-110) mg/dL Serum Osmolality (272-300) mosm/kg Calcium 8.3 L (8.6-10.4) mg/dl Total Bilirubin 0.7 (0.2-1.3) mg/dL AST 75 H (17-59) U/L ALT 37 (21-72) U/L Alkaline Phosphatase 353 H (38-126) U/L Total Protein 6.8 (6.3-8.3) g/dL Albumin 3.5 (3.5-5.0) g/dL Globulin 3.3 (2.2-3.9) gm/dL Albumin/Globulin Ratio 1.0 (1.0-2.1) Lipase 362 H (23-300) U/L Urine Color Yellow (YELLOW) Urine Clarity Clear (Clear) Urine pH 5.0 (5.0-8.0) Ur Specific [place] 1.017 (1.003-1.030) Urine Protein Negative (NEGATIVE) mg/dL Urine Glucose (UA) Normal (Normal) mg/dL Urine Ketones Negative (NEGATIVE) mg/dL Urine Blood 1+ H (NEGATIVE) Urine Nitrate Negative (NEGATIVE) Urine Bilirubin Negative (NEGATIVE) Urine Urobilinogen Normal (0.2-1.0) mg/dL Ur Leukocyte Esterase Neg (Negative) Maria Del Rosario/uL Urine WBC (Auto) 1 (0-5) /hpf Urine RBC (Auto) 8 H (0-3) /hpf Urine Osmolality (300-1000) mosm/kg Ur Random Sodium mmol/L 08/04/ Range/Units 10:40 WBC 9.8 (4.8-10.8) K/uL RBC 3.14 L (4.40-5.90) Mil/uL Hgb 10.3 L (12.0-18.0) g/dL Hct 29.0 L (35.0-51.0) % MCV 92.3 D (80.0-94.0) fL MCH 32.7 H (27.0-31.0) pg MCHC 35.4 (33.0-37.0) g/dL RDW 13.3 (11.5-14.5) % Plt Count 201 (130-400) K/uL MPV 8.1 (7.2-11.7) fL Neut % (Auto) 78.3 H (50.0-75.0) % Lymph % (Auto) 14.7 L (20.0-40.0) % [place] % (Auto) 5.3 (0.0-10.0) % Eos % (Auto) 1.1 (0.0-4.0) % Baso % (Auto) 0.6 (0.0-2.0) % Neut # 7.7 H (1.8-7.0) K/uL Lymph # 1.4 (1.0-4.3) K/uL [place] # 0.5 (0.0-0.8) K/uL Eos # 0.1 (0.0-0.7) K/uL Baso # 0.1 (0.0-0.2) K/uL PT (9.7-12.2) SECONDS INR APTT (21-34) SECONDS Sodium (132-148) mmol/L Potassium (3.6-5.2) mmol/L Chloride (98-107) mmol/L Carbon Dioxide (22-30) mmol/L Anion Gap (10-20) BUN (9-20) mg/dL Creatinine (0.8-1.5) mg/dL Est GFR ( Amer) Est GFR (Non-Af Amer) Random Glucose (75-110) mg/dL Serum Osmolality (272-300) mosm/kg Calcium (8.6-10.4) mg/dl Total Bilirubin (0.2-1.3) mg/dL AST (17-59) U/L ALT (21-72) U/L Alkaline Phosphatase (38-126) U/L Total Protein (6.3-8.3) g/dL Albumin (3.5-5.0) g/dL Globulin (2.2-3.9) gm/dL Albumin/Globulin Ratio (1.0-2.1) Lipase (23-300) U/L Urine Color (YELLOW) Urine Clarity (Clear) Urine pH (5.0-8.0) Ur Specific [place] (1.003-1.030) Urine Protein (NEGATIVE) mg/dL Urine Glucose (UA) (Normal) mg/dL Urine Ketones (NEGATIVE) mg/dL Urine Blood (NEGATIVE) Urine Nitrate (NEGATIVE) Urine Bilirubin (NEGATIVE) Urine Urobilinogen (0.2-1.0) mg/dL Ur Leukocyte Esterase (Negative) Maria Del Rosario/uL Urine WBC (Auto) (0-5) /hpf Urine RBC (Auto) (0-3) /hpf Urine Osmolality (300-1000) mosm/kg Ur Random Sodium mmol/L Laboratory Results - last 24 hr 08/04/17 08/04/17 08/04/17 10:40 10:40 10:40 WBC 9.8 RBC 3.14 L Hgb 10.3 L Hct 29.0 L MCV 92.3 D MCH 32.7 H MCHC 35.4 RDW 13.3 Plt Count 201 MPV 8.1 Neut % (Auto) 78.3 H Lymph % (Auto) 14.7 L [place] % (Auto) 5.3 Eos % (Auto) 1.1 Baso % (Auto) 0.6 Neut # 7.7 H Lymph # 1.4 [place] # 0.5 Eos # 0.1 Baso # 0.1 PT 13.6 H INR 1.2 APTT 28 Sodium 116 L* Potassium 4.1 Chloride 85 L Carbon Dioxide 22 Anion Gap 13 BUN 9 Creatinine 0.5 L Est GFR ( Amer) > 60 Est GFR (Non-Af Amer) > 60 Random Glucose 113 H Serum Osmolality Calcium 8.3 L Total Bilirubin 0.7 AST 75 H ALT 37 Alkaline Phosphatase 353 H Total Protein 6.8 Albumin 3.5 Globulin 3.3 Albumin/Globulin Ratio 1.0 Lipase 362 H Urine Color Urine Clarity Urine pH Ur Specific [place] Urine Protein Urine Glucose (UA) Urine Ketones Urine Blood Urine Nitrate Urine Bilirubin Urine Urobilinogen Ur Leukocyte Esterase Urine WBC (Auto) Urine RBC (Auto) Urine Osmolality Ur Random Sodium 08/04/17 08/04/17 08/04/17 11:47 11:47 12:02 WBC RBC Hgb Hct MCV MCH MCHC RDW Plt Count MPV Neut % (Auto) Lymph % (Auto) [place] % (Auto) Eos % (Auto) Baso % (Auto) Neut # Lymph # [place] # Eos # Baso # PT INR APTT Sodium Potassium Chloride Carbon Dioxide Anion Gap BUN Creatinine Est GFR ( Amer) Est GFR (Non-Af Amer) Random Glucose Serum Osmolality 259 L Calcium Total Bilirubin AST ALT Alkaline Phosphatase Total Protein Albumin Globulin Albumin/Globulin Ratio Lipase Urine Color Yellow Urine Clarity Clear Urine pH 5.0 Ur Specific [place] 1.017 Urine Protein Negative Urine Glucose (UA) Normal Urine Ketones Negative Urine Blood 1+ H Urine Nitrate Negative Urine Bilirubin Negative Urine Urobilinogen Normal Ur Leukocyte Esterase Neg Urine WBC (Auto) 1 Urine RBC (Auto) 8 H Urine Osmolality 546 Ur Random Sodium 59 08/04/17 13:45 WBC RBC Hgb Hct MCV MCH MCHC RDW Plt Count MPV Neut % (Auto) Lymph % (Auto) [place] % (Auto) Eos % (Auto) Baso % (Auto) Neut # Lymph # [place] # Eos # Baso # PT INR APTT Sodium 115 L* Potassium 4.2 Chloride 88 L Carbon Dioxide 20 L Anion Gap 11 BUN 9 Creatinine 0.5 L Est GFR ( Amer) > 60 Est GFR (Non-Af Amer) > 60 Random Glucose 69 L Serum Osmolality Calcium 7.7 L Total Bilirubin 0.7 AST 69 H ALT 53 Alkaline Phosphatase 359 H Total Protein 6.5 Albumin 3.2 L Globulin 3.3 Albumin/Globulin Ratio 1.0 Lipase Urine Color Urine Clarity Urine pH Ur Specific [place] Urine Protein Urine Glucose (UA) Urine Ketones Urine Blood Urine Nitrate Urine Bilirubin Urine Urobilinogen Ur Leukocyte Esterase Urine WBC (Auto) Urine RBC (Auto) Urine Osmolality Ur Random Sodium Assessment/Plan - Assessment and Plan (Free Text) Assessment: Patient seen and examined at bedside. Patient with chronic Hyponatremia presents to [facility] with c/o right upper quadrant abdominal pain. Patient wwas recently at admitted with infusion of 3% saline; however was nottaking tolvaptan at home. -PAtient denies any nausea, vomitting or visual disturbance. Patient is awake alert x 3. Patient has h/o metastatic ca with multiple lesions in liver. -hypotension: in ER 2nd opoids patient was prescribed. 2 liter NS infused and BP improved -SIADH: urine osmol >500 and serum osmol <300 c/w SIADH: continue tolvaptan and demeclocycline, first dose now. add salt tablets and 800 ml fluid restriction ( STRICT). -Patient's 9 month mortality remains high 2nd metastatic lung ca and will benfit from palliative care/hospice cre. Please call MICU if patient's clinical status worsens or HR >120. d/w ER physician. - Date & Time Date: 08/04/17 Time: 14:30
[2017-08-04] MEDS ORDERED: Sodium Chloride 0.9% 1,000 ML ONE (12:58)
--- NOTE | 2017-08-04 13:42 | CT ---
PROCEDURE: CT Abdomen and Pelvis with contrast HISTORY: abd pain h/o of metastatic ca COMPARISON: Comparison is made to the previous study dated 07/01/2017 TECHNIQUE: Contrast dose: 100 mL Visipaque 320. Axial and reformatted coronal and sagittal CT images of the abdomen and pelvis were obtained after IV contrast administration. Radiation dose: Total exam DLP = 283.36 mGy-cm. This CT exam was performed using one or more of the following dose reduction techniques: Automated exposure control, adjustment of the mA and/or kV according to patient size, and/or use of iterative reconstruction technique. FINDINGS: LOWER THORAX: Trace/ small bilateral pleural effusions slightly larger on the right again seen. The heart is mildly enlarged. Previously seen left lower lung nodules are partially imaged in this study. LIVER: Again seen are multiple large peripheral enhancing mass lesions in the liver compatible with widespread liver metastasis. GALLBLADDER AND BILE DUCTS: Unremarkable. PANCREAS: Again seen is heterogeneous lesion at the pancreatic tail may represent primary or secondary neoplasm. . SPLEEN: Heterogeneous enhancement of the spleen is noted likely due to air early enhancement. ADRENALS: No evidence of mass lesion in the adrenal glands. KIDNEYS AND URETERS: Re- demonstration of small low-attenuation lesions in the kidneys may represent benign renal cyst. Re- demonstration of exophytic lesion at the upper pole of the left kidney measures 10 x 9 millimeter. VASCULATURE: Unremarkable. No aortic aneurysm. BOWEL: No evidence of obstructing mass lesion in the bowel. Mild constipation is noted. Evidence of small bowel obstruction or intestinal pneumatosis. APPENDIX: Normal appendix. PERITONEUM: Unremarkable. No free fluid. No free air. LYMPH NODES: Mildly enlarged peripancreatic lymph nodes are noted. BLADDER: Unremarkable. REPRODUCTIVE: The prostate is mildly to moderately enlarged. BONES: Again seen are multiple lytic bony lesions consistent with widespread osseous metastasis. OTHER FINDINGS: None. IMPRESSION: No significant interval change compared to the previous exam. Widespread liver metastasis. Heterogeneous mass lesion at the pancreatic tail may represent primary or less likely secondary neoplasm. Widespread osseous metastasis. Suspicious for exophytic lesion at the upper pole of the left kidney may represent complex cyst or neoplasm. Further assessment by ultrasound is suggested.
[2017-08-04 14:32] LABS: ALKALINE PHOSPHATASE 359 U/L (38-126); ALT/SGPT 53 U/L (21-72); AST/SGOT 69 U/L (17-59); BILIRUBIN,TOTAL 0.7 mg/dL (0.2-1.3); BLOOD UREA NITROGEN 9 mg/dL (9-20); CALCIUM 7.7 mg/dl (8.6-10.4); CARBON DIOXIDE 20 mmol/L (22-30); CHLORIDE 88 mmol/L (98-107); GFR AFRICAN-AMERICAN > 60; GLUCOSE,RANDOM 69 mg/dL (75-110); POTASSIUM 4.2 mmol/L (3.6-5.2); TOTAL PROTEIN 6.5 g/dL (6.3-8.3)
[2017-08-04 14:53] LABS: SODIUM 115 mmol/L (132-148)
[2017-08-04] MEDS ORDERED: Morphine 4 MG/ML VIAL ONE (16:18)
--- NOTE | 2017-08-04 19:54 | CP.PCM.HP ---
History of Present Illness - History of Present Illness History of Present Illness: A 62-year-old male with PMHarthritis, gastritis, HTN, hypercholesterolemia, IHD [CABG done] and metastatic lung cancer presents to the ER for evaluation of abdominal pain. C/-abdominal pain for 10-15 days. Insidious in onset, progressive, vague, dull aching type, diffuse, generalized, all over the abdomen, intensity of 4/10 , not associated with meals. No C/Ofever, chills, urinary and bladder disturbances, vomiting, abdominal distention, yellowish discoloration of urine and sclera. Present on Admission - Present on Admission Any Indicators Present on Admission: No Past Patient History - Infectious Disease Hx of Infectious Diseases: None - Past Medical History & Family History Past Medical History?: Yes - Past Social History Smoking Status: Former Smoker - CARDIAC Hx Hypercholesterolemia: Yes Hx Hypertension: Yes Hx Pacemaker: No - PULMONARY Hx Respiratory Disorders: No - NEUROLOGICAL Hx Neurological Disorder: No Hx Paralysis: No - HEENT Hx HEENT Problems: No - RENAL Hx Chronic Kidney Disease: No - ENDOCRINE/METABOLIC Hx Endocrine Disorders: No - HEMATOLOGICAL/ONCOLOGICAL Hx Blood Disorders: No Hx Blood Transfusions: No Hx Chemotherapy: Yes (mets, liver, pancreas, bones.) - INTEGUMENTARY Hx Dermatological Problems: No - MUSCULOSKELETAL/RHEUMATOLOGICAL Hx Arthritis: Yes (BACK/ HIP/KNEE) - GASTROINTESTINAL Hx Gastritis: Yes - GENITOURINARY/GYNECOLOGICAL Hx Genitourinary Disorders: No - PSYCHIATRIC Hx Substance Use: No - SURGICAL HISTORY Hx Coronary Artery Bypass Graft: Yes - ANESTHESIA Hx Anesthesia: Yes Hx Anesthesia Reactions: No Hx Malignant Hyperthermia: No Meds Home Medications: Home Medication List Medication Instructions Recorded Confirmed Type Demeclocycline [Declomycin] 300 mg PO BID #60 tab 08/07/17 Rx Allergies/Adverse Reactions: Allergies Allergy/AdvReac Type Severity Reaction Status Date / Time No Known Allergies Allergy Verified 07/21/17 19:34 Physical Exam - Constitutional Appears: Well - Head Exam Head Exam: ATRAUMATIC, NORMAL INSPECTION, NORMOCEPHALIC - Eye Exam Eye Exam: EOMI, Normal appearance, PERRL Pupil Exam: NORMAL ACCOMODATION, PERRL - ENT Exam ENT Exam: Mucous Membranes Moist, Normal Exam - Neck Exam Neck exam: Positive for: Normal Inspection - Respiratory Exam Respiratory Exam: Decreased Breath Sounds - Cardiovascular Exam Cardiovascular Exam: REGULAR RHYTHM, +S1, +S2 - GI/Abdominal Exam GI & Abdominal Exam: Diminished Bowel Sounds, Soft - Rectal Exam Rectal Exam: Deferred Results - Vital Signs Recent Vital Signs: Last Vital Signs Temp 98 F 08/04/17 19:46 Pulse 75 08/04/17 19:46 Resp 18 08/04/17 19:46 BP 126/63 08/04/17 19:46 Pulse Ox 95 08/04/17 19:46 - Labs Result Diagrams: 08/05/17 16:43 08/07/17 06:08 Labs: Laboratory Results - last 24 hr 08/04/17 08/04/17 08/04/17 10:40 10:40 10:40 WBC 9.8 RBC 3.14 L Hgb 10.3 L Hct 29.0 L MCV 92.3 D MCH 32.7 H MCHC 35.4 RDW 13.3 Plt Count 201 MPV 8.1 Neut % (Auto) 78.3 H Lymph % (Auto) 14.7 L [place] % (Auto) 5.3 Eos % (Auto) 1.1 Baso % (Auto) 0.6 Neut # 7.7 H Lymph # 1.4 [place] # 0.5 Eos # 0.1 Baso # 0.1 PT 13.6 H INR 1.2 APTT 28 Sodium 116 L* Potassium 4.1 Chloride 85 L Carbon Dioxide 22 Anion Gap 13 BUN 9 Creatinine 0.5 L Est GFR ( Amer) > 60 Est GFR (Non-Af Amer) > 60 Random Glucose 113 H Serum Osmolality Calcium 8.3 L Total Bilirubin 0.7 AST 75 H ALT 37 Alkaline Phosphatase 353 H Total Protein 6.8 Albumin 3.5 Globulin 3.3 Albumin/Globulin Ratio 1.0 Lipase 362 H Urine Color Urine Clarity Urine pH Ur Specific Ong Urine Protein Urine Glucose (UA) Urine Ketones Urine Blood Urine Nitrate Urine Bilirubin Urine Urobilinogen Ur Leukocyte Esterase Urine WBC (Auto) Urine RBC (Auto) Urine Osmolality Ur Random Sodium 08/04/17 08/04/17 08/04/17 11:47 11:47 12:02 WBC RBC Hgb Hct MCV MCH MCHC RDW Plt Count MPV Neut % (Auto) Lymph % (Auto) [place] % (Auto) Eos % (Auto) Baso % (Auto) Neut # Lymph # [place] # Eos # Baso # PT INR APTT Sodium Potassium Chloride Carbon Dioxide Anion Gap BUN Creatinine Est GFR ( Amer) Est GFR (Non-Af Amer) Random Glucose Serum Osmolality 259 L Calcium Total Bilirubin AST ALT Alkaline Phosphatase Total Protein Albumin Globulin Albumin/Globulin Ratio Lipase Urine Color Yellow Urine Clarity Clear Urine pH 5.0 Ur Specific Ong 1.017 Urine Protein Negative Urine Glucose (UA) Normal Urine Ketones Negative Urine Blood 1+ H Urine Nitrate Negative Urine Bilirubin Negative Urine Urobilinogen Normal Ur Leukocyte Esterase Neg Urine WBC (Auto) 1 Urine RBC (Auto) 8 H Urine Osmolality 546 Ur Random Sodium 59 08/04/17 13:45 WBC RBC Hgb Hct MCV MCH MCHC RDW Plt Count MPV Neut % (Auto) Lymph % (Auto) [place] % (Auto) Eos % (Auto) Baso % (Auto) Neut # Lymph # [place] # Eos # Baso # PT INR APTT Sodium 115 L* Potassium 4.2 Chloride 88 L Carbon Dioxide 20 L Anion Gap 11 BUN 9 Creatinine 0.5 L Est GFR ( Amer) > 60 Est GFR (Non-Af Amer) > 60 Random Glucose 69 L Serum Osmolality Calcium 7.7 L Total Bilirubin 0.7 AST 69 H ALT 53 Alkaline Phosphatase 359 H Total Protein 6.5 Albumin 3.2 L Globulin 3.3 Albumin/Globulin Ratio 1.0 Lipase Urine Color Urine Clarity Urine pH Ur Specific Ong Urine Protein Urine Glucose (UA) Urine Ketones Urine Blood Urine Nitrate Urine Bilirubin Urine Urobilinogen Ur Leukocyte Esterase Urine WBC (Auto) Urine RBC (Auto) Urine Osmolality Ur Random Sodium
[2017-08-04] MEDS ORDERED: Tolvaptan 15 MG TAB PO STA (20:17)
[2017-08-04] MEDS: oxyCODONE 5 mg Immediate Release Tab PO PRN (20:38)
[2017-08-05 00:16] VITALS: RESP 20
[2017-08-05] MEDS ORDERED: oxyCODONE 5 mg Immediate Release Tab PO ONE (00:53)
[2017-08-05] MEDS: Enoxaparin 40 mg Syringe SC SCH (10:48)
[2017-08-05] MEDS: Metoprolol Succinate 25 mg XL Tab PO SCH (10:49)
[2017-08-05] MEDS: oxyCODONE 5 mg Immediate Release Tab PO PRN ×2 (10:54→21:29)
--- NOTE | 2017-08-05 16:07 | CP.PCM.PN ---
Subjective - Date & Time of Evaluation Date of Evaluation: 08/05/17 Time of Evaluation: 11:40 - Subjective Subjective: clinically same Objective - Vital Signs/Intake and Output Vital Signs (last 24 hours): Temp Pulse Resp BP Pulse Ox 98.1 F 81 20 101/59 L 95 08/05/17 07:00 08/05/17 07:40 08/05/17 07:00 08/05/17 07:00 08/05/17 07:00 Intake and Output: 08/05/17 08/05/17 06:59 18:59 Intake Total 240 Balance 240 - Medications Medications: Current Medications Aspirin (Ecotrin) 81 mg PO DAILY [facility] Last Admin: 08/05/17 10:47 Dose: 81 mg Chlorpromazine (Thorazine) 25 mg PO Q6H PRN PRN Reason: Hiccups Last Admin: 08/05/17 10:44 Dose: 25 mg Clopidogrel Bisulfate (Plavix) 75 mg PO DAILY [facility] Last Admin: 08/05/17 10:49 Dose: 75 mg Demeclocycline HCl (Declomycin) 150 mg PO QID [facility] Last Admin: 08/05/17 13:28 Dose: 150 mg Enoxaparin Sodium (Lovenox) 40 mg SC DAILY [facility] Last Admin: 08/05/17 10:48 Dose: 40 mg Famotidine (Pepcid) 20 mg PO DAILY [facility] Last Admin: 08/05/17 10:48 Dose: 20 mg Metoprolol Succinate (Toprol Xl) 25 mg PO DAILY [facility] Last Admin: 08/05/17 10:49 Dose: 25 mg Oxycodone HCl (Oxycodone Immediate Release Tab) 5 mg PO Q6 PRN PRN Reason: Pain, severe (8-10) Last Admin: 08/05/17 10:54 Dose: 5 mg Prochlorperazine (Compazine) 10 mg PO Q6H [facility] Last Admin: 08/05/17 08:45 Dose: 10 mg Rosuvastatin Calcium (Crestor) 20 mg PO HS [facility] Last Admin: 08/04/17 22:43 Dose: 20 mg Sodium Chloride (Sodium Chloride Tab) 1 gm PO Q8H [facility] Last Admin: 08/05/17 12:15 Dose: 1 gm Tolvaptan (Samsca) 15 mg PO DAILY [facility] Stop: 11/19/17 12:16 - Labs Labs: 08/04/17 10:40 08/04/17 13:45 PT 13.6 SECONDS (9.7-12.2) H 08/04/17 10:40 INR 1.2 08/04/17 10:40 APTT 28 SECONDS (21-34) 08/04/17 10:40 - Constitutional Appears: Well - Head Exam Head Exam: ATRAUMATIC, NORMAL INSPECTION, NORMOCEPHALIC - Eye Exam Eye Exam: EOMI, Normal appearance, PERRL Pupil Exam: NORMAL ACCOMODATION, PERRL - ENT Exam ENT Exam: Mucous Membranes Moist, Normal Exam - Neck Exam Neck Exam: Full ROM, Normal Inspection. absent: Lymphadenopathy - Respiratory Exam Respiratory Exam: Decreased Breath Sounds - Cardiovascular Exam Cardiovascular Exam: REGULAR RHYTHM, +S1, +S2 - GI/Abdominal Exam GI & Abdominal Exam: Soft, Diminished Bowel Sounds - Rectal Exam Rectal Exam: Deferred Assessment and Plan (1) Abdominal pain Status: Acute (2) Anemia Status: Acute (3) Hepatomegaly Status: Acute (4) Hiccups Status: Acute (5) Hyponatremia Status: Acute (6) Intractable hiccups Status: Acute (7) Leukopenia Status: Acute (8) Metastatic cancer to liver Status: Acute (9) Small cell lung cancer Status: Acute (10) Thrombocytopenia Status: Acute - Assessment and Plan (Free Text) Plan: Patient examined. CT scan abdomen and pelvis suggestive no interval change compared to previous exam. Widespread liver metastasis. Heterogeneous mass lesion at the pancreatic tail representing primary or less likely secondary neoplasm. Widespread osseous metastasis. Laboratory investigation shows sodium of 115.
[2017-08-05 17:04] LABS: BASO # 0.1 K/uL (0.0-0.2); BASO % 0.9 % (0.0-2.0); EOS # 0.1 K/uL (0.0-0.7); EOS % 0.7 % (0.0-4.0); HEMATOCRIT 32.5 % (35.0-51.0); LYMPH # 1.6 K/uL (1.0-4.3); LYMPH % 14.8 % (20.0-40.0); MEAN CELL VOLUME 94.3 fL (80.0-94.0); MEAN CORPUSCULAR HEMOGLOBIN 32.2 pg (27.0-31.0); MEAN CORPUSCULAR HGB CONC 34.1 g/dL (33.0-37.0); MEAN PLATELET VOLUME 7.5 fL (7.2-11.7); MONO # 0.5 K/uL (0.0-0.8); MONO % 5.2 % (0.0-10.0); NRBC % 0.1 % (0.0-2.0); RED CELL DISTRIBUTION WIDTH 13.6 % (11.5-14.5); WHITE BLOOD COUNT 10.5 K/uL (4.8-10.8)
[2017-08-05 17:13] LABS: ALKALINE PHOSPHATASE 401 U/L (38-126); ALT/SGPT 46 U/L (21-72); AST/SGOT 73 U/L (17-59); BILIRUBIN,TOTAL 0.7 mg/dL (0.2-1.3); BLOOD UREA NITROGEN 8 mg/dL (9-20); CALCIUM 8.6 mg/dl (8.6-10.4); CARBON DIOXIDE 22 mmol/L (22-30); CHLORIDE 99 mmol/L (98-107); GFR AFRICAN-AMERICAN > 60; GLUCOSE,RANDOM 112 mg/dL (75-110); POTASSIUM 4.5 mmol/L (3.6-5.2); SODIUM 132 mmol/L (132-148); TOTAL PROTEIN 7.6 g/dL (6.3-8.3)
[2017-08-06 09:01] LABS: ALB/GLOB RATIO 1.5 (1.0-2.1); ALKALINE PHOSPHATASE 416 U/L (38-126); ALT/SGPT 41 U/L (21-72); AST/SGOT 81 U/L (17-59); BLOOD UREA NITROGEN 10 mg/dL (9-20); CALCIUM 8.5 mg/dl (8.6-10.4); CARBON DIOXIDE 22 mmol/L (22-30); CHLORIDE 98 mmol/L (98-107); GFR AFRICAN-AMERICAN > 60; GLUCOSE,RANDOM 130 mg/dL (75-110); SODIUM 130 mmol/L (132-148); TOTAL PROTEIN 6.3 g/dL (6.3-8.3)
[2017-08-06] MEDS: Metoprolol Succinate 25 mg XL Tab PO SCH (09:13)
[2017-08-06] MEDS: Enoxaparin 40 mg Syringe SC SCH (09:17)
[2017-08-06] MEDS: oxyCODONE 5 mg Immediate Release Tab PO PRN ×2 (09:28→18:54)
--- NOTE | 2017-08-06 12:38 | CP.PCM.PN ---
Subjective - Date & Time of Evaluation Date of Evaluation: 08/06/17 Time of Evaluation: 11:40 - Subjective Subjective: clinically same Objective - Vital Signs/Intake and Output Vital Signs (last 24 hours): Temp Pulse Resp BP Pulse Ox 97.7 F 80 20 93/50 L 97 08/06/17 07:00 08/06/17 07:30 08/06/17 07:00 08/06/17 07:00 08/06/17 07:00 Intake and Output: 08/06/17 08/06/17 06:59 18:59 Intake Total 600 Balance 600 - Medications Medications: Current Medications Aspirin (Ecotrin) 81 mg PO DAILY [facility] Last Admin: 08/06/17 09:17 Dose: 81 mg Chlorpromazine (Thorazine) 25 mg PO Q6H PRN PRN Reason: Hiccups Last Admin: 08/05/17 10:44 Dose: 25 mg Clopidogrel Bisulfate (Plavix) 75 mg PO DAILY [facility] Last Admin: 08/06/17 09:13 Dose: 75 mg Demeclocycline HCl (Declomycin) 150 mg PO QID [facility] Last Admin: 08/06/17 09:25 Dose: 150 mg Enoxaparin Sodium (Lovenox) 40 mg SC DAILY [facility] Last Admin: 08/06/17 09:17 Dose: 40 mg Famotidine (Pepcid) 20 mg PO DAILY [facility] Last Admin: 08/06/17 09:13 Dose: 20 mg Metoprolol Succinate (Toprol Xl) 25 mg PO DAILY [facility] Last Admin: 08/06/17 09:13 Dose: 25 mg Oxycodone HCl (Oxycodone Immediate Release Tab) 5 mg PO Q6 PRN PRN Reason: Pain, severe (8-10) Last Admin: 08/06/17 09:28 Dose: 5 mg Prochlorperazine (Compazine) 10 mg PO Q6H [facility] Last Admin: 08/06/17 08:45 Dose: 10 mg Rosuvastatin Calcium (Crestor) 20 mg PO HS [facility] Last Admin: 08/05/17 21:29 Dose: 20 mg Sodium Chloride (Sodium Chloride Tab) 1 gm PO Q8H [facility] Last Admin: 08/06/17 05:15 Dose: 1 gm - Labs Labs: 08/05/17 16:43 08/06/17 08:44 PT 13.6 SECONDS (9.7-12.2) H 08/04/17 10:40 INR 1.2 08/04/17 10:40 APTT 28 SECONDS (21-34) 08/04/17 10:40 - Constitutional Appears: Well - Head Exam Head Exam: ATRAUMATIC, NORMAL INSPECTION, NORMOCEPHALIC - Eye Exam Eye Exam: EOMI, Normal appearance, PERRL Pupil Exam: NORMAL ACCOMODATION, PERRL - ENT Exam ENT Exam: Mucous Membranes Moist, Normal Exam - Neck Exam Neck Exam: Full ROM, Normal Inspection. absent: Lymphadenopathy - Respiratory Exam Respiratory Exam: Clear to Ausculation Bilateral, NORMAL BREATHING PATTERN - Cardiovascular Exam Cardiovascular Exam: REGULAR RHYTHM, +S1, +S2. absent: Murmur - GI/Abdominal Exam GI & Abdominal Exam: Soft, Normal Bowel Sounds. absent: Tenderness - Rectal Exam Rectal Exam: Deferred Assessment and Plan (1) Abdominal pain Status: Acute (2) Anemia Status: Acute (3) Hepatomegaly Status: Acute (4) Hiccups Status: Acute (5) Hyponatremia Status: Acute (6) Intractable hiccups Status: Acute (7) Leukopenia Status: Acute (8) Metastatic cancer to liver Status: Acute (9) Small cell lung cancer Status: Acute (10) Thrombocytopenia Status: Acute - Assessment and Plan (Free Text) Plan: Patient examined. Patient clinically the same. Continue aspirin and clopidogrel. Continue metoprolol. Continue chlorpromazine and demeclocycline and poor chlorpromazine. Continue pain medications. Continue supportive care.
[2017-08-07 06:27] LABS: ALB/GLOB RATIO 1.1 (1.0-2.1); ALKALINE PHOSPHATASE 391 U/L (38-126); ALT/SGPT 49 U/L (21-72); AST/SGOT 69 U/L (17-59); BILIRUBIN,TOTAL 0.6 mg/dL (0.2-1.3); BLOOD UREA NITROGEN 12 mg/dL (9-20); CALCIUM 8.7 mg/dl (8.6-10.4); CARBON DIOXIDE 23 mmol/L (22-30); CHLORIDE 96 mmol/L (98-107); GFR AFRICAN-AMERICAN > 60; GLUCOSE,RANDOM 135 mg/dL (75-110); POTASSIUM 3.7 mmol/L (3.6-5.2); SODIUM 130 mmol/L (132-148)
[2017-08-07 07:48] VITALS: BP 130/69; TEMP 98; O2SAT 97
[2017-08-07] MEDS: Metoprolol Succinate 25 mg XL Tab PO SCH (10:56)
[2017-08-07] MEDS: Enoxaparin 40 mg Syringe SC SCH (10:56)
--- NOTE | 2017-08-07 13:39 | CP.PCM.PN ---
Subjective - Date & Time of Evaluation Date of Evaluation: 08/07/17 Time of Evaluation: 13:39 - Subjective Subjective: PATIENT IS ADMITTED FOR HYPONATREMIA AND ABD PAIN; PATIENT IS AAO X 3 DENIES CHEST PAIN AND SOB SILL COMPLAINING OF ABD DISCONFORT NO SIGN OF DISTRESS NOTED Patient's 9 month mortality remains high 2nd metastatic lung ca and will benfit from palliative care/hospice CARE PER ED PHYSCIAN Objective - Vital Signs/Intake and Output Vital Signs (last 24 hours): Temp Pulse Resp BP Pulse Ox 98.0 F 86 20 130/69 97 08/07/17 07:05 08/07/17 08:07 08/07/17 07:05 08/07/17 07:05 08/07/17 07:05 Intake and Output: 08/07/17 08/07/17 06:59 18:59 Intake Total 540 Balance 540 - Medications Medications: Current Medications Aspirin (Ecotrin) 81 mg PO DAILY [facility] Last Admin: 08/07/17 10:56 Dose: 81 mg Chlorpromazine (Thorazine) 25 mg PO Q6H PRN PRN Reason: Hiccups Last Admin: 08/05/17 10:44 Dose: 25 mg Clopidogrel Bisulfate (Plavix) 75 mg PO DAILY [facility] Last Admin: 08/07/17 10:56 Dose: 75 mg Demeclocycline HCl (Declomycin) 300 mg PO BID [facility] Last Admin: 08/07/17 10:57 Dose: 300 mg Enoxaparin Sodium (Lovenox) 40 mg SC DAILY [facility] Last Admin: 08/07/17 10:56 Dose: 40 mg Famotidine (Pepcid) 20 mg PO DAILY [facility] Last Admin: 08/07/17 10:56 Dose: 20 mg Metoprolol Succinate (Toprol Xl) 25 mg PO DAILY [facility] Last Admin: 08/07/17 10:56 Dose: 25 mg Oxycodone HCl (Oxycodone Immediate Release Tab) 5 mg PO Q6 PRN PRN Reason: Pain, severe (8-10) Last Admin: 08/06/17 18:54 Dose: 5 mg Prochlorperazine (Compazine) 10 mg PO Q6H [facility] Last Admin: 08/07/17 08:23 Dose: 10 mg Rosuvastatin Calcium (Crestor) 20 mg PO HS [facility] Last Admin: 08/06/17 21:49 Dose: 20 mg Sodium Chloride (Sodium Chloride Tab) 1 gm PO Q8H [facility] Last Admin: 08/07/17 11:39 Dose: 1 gm - Labs Labs: 08/05/17 16:43 08/07/17 06:08 PT 13.6 SECONDS (9.7-12.2) H 08/04/17 10:40 INR 1.2 08/04/17 10:40 APTT 28 SECONDS (21-34) 08/04/17 10:40 - Eye Exam Eye Exam: Normal appearance - ENT Exam ENT Exam: Normal Exam - Respiratory Exam Respiratory Exam: Clear to Ausculation Bilateral - Cardiovascular Exam Cardiovascular Exam: REGULAR RHYTHM - GI/Abdominal Exam Additional comments: LUMP NOTED IN LEFT LOWER QUADRANT Assessment and Plan - Assessment and Plan (Free Text) Assessment: A/P PATIENT IS SEEN AND EXAMINED AT THE BEDSIDE; LAZARUS SOUND DIMINISHED BILATERAL; LUMP NOTED IN THE ABDOMINAL ABD CT IMPRESSION Widespread liver metastasis. Heterogeneous mass lesion at the pancreatic tail may represent primary or less likely secondary neoplasm. Widespread osseous metastasis. Suspicious for exophytic lesion at the upper pole of the left kidney may represent complex cyst or neoplasm. Further assessment by ultrasound is suggested. FOLLOW UP WITH DR Debo MILLER ON MONDAY (08/09/2017)-----CALL HIS OFFICE TO CONFIRM APPOINTMENT CONTINUE MEDS PER MED RECS CALL DR Debo MILLER FOR ANY QUESTION OR GO TO THE ER IF SYMPTOMS RETURN OR WORSENING
[2017-08-07 15:06] VITALS: PULSE 81
== END 2017-08-07 15:36 | disposition home or self-care (01) | DRG 644 ==
LOC: C.ER 09:57 → C.9E 14:56 → C.6T 18:40
PROVIDERS: ADMIT Internal Medicine Nephrology; ATTEND Internal Medicine Nephrology
DX: E22.2 Syndrome of inappropriate secretion of antidiuretic hormone (principal); C78.7 Secondary malignant neoplasm of liver and intrahepatic bile duct; C79.51 Secondary malignant neoplasm of bone; C78.89 Secondary malignant neoplasm of other digestive organs; C34.90 Malignant neoplasm of unspecified part of unspecified bronchus or lung; K21.9 Gastro-esophageal reflux disease without esophagitis; M19.90 Unspecified osteoarthritis, unspecified site; I10 Essential (primary) hypertension; E78.00 Pure hypercholesterolemia, unspecified; Z87.891 Personal history of nicotine dependence; Z95.1 Presence of aortocoronary bypass graft

== ENCOUNTER 2017-08-14 17:00 | Inpatient (IN) | payer MEDICARE, OTHER ==
[2017-08-14 17:01] VITALS: BMI 25.9
--- NOTE | 2017-08-14 19:38 | C.PDOC ---
History Of Present Illness Patient with a history of metastatic Liver CA with mets to bone and lung, presents to the ED with complaints of increased weakness. As per family, patient wishes for diagnosis to be discussed. Patient was recently evaluated in ED 10 days prior for hyponatremium and notes current complaints feel similar to that episode. Patient denies fever, chills, nausea, vomiting. Time Seen by Provider: 08/14/17 19:38 Chief Complaint (Nursing): Abnormal Labs History Per: Patient, Family History/Exam Limitations: other (family states, as per patient, does not want discussion regarding diagnosis of CA ) Onset/Duration Of Symptoms: Intermittent Episodes Current Symptoms Are (Timing): Still Present Severity: Moderate Pain Scale Rating Of: 4 Reports Recently: Seen In ED (08/04/2017), Treated By A Physician Recent travel outside of the [place]: No Additional History Per: Prior Records Past Medical History Reviewed: Historical Data, Nursing Documentation, Vital Signs Vital Signs: Last Vital Signs Temp 97.8 F 08/14/17 17:46 Pulse 88 08/14/17 17:46 Resp 20 08/14/17 17:46 BP 113/64 08/14/17 17:46 Pulse Ox 98 08/14/17 20:27 - Medical History PMH: Arthritis (BACK/ HIP/KNEE), Gastritis, HTN, Hypercholesterolemia, Hyperlipidemia Surgical History: CABG Denies: Pacemaker - [facility] EXCISION OF LIVER, PERCUTANEOUS APPROACH, DIAGNOSTIC (07/01/17) Family History: States: Unknown Family Hx - Social History Hx Alcohol Use: No Hx Substance Use: No - Immunization History Hx Tetanus Toxoid Vaccination: No Hx Influenza Vaccination: No Hx Pneumococcal Vaccination: No Review Of Systems Constitutional: Positive for: Weakness. Negative for: Fever, Chills Eyes: Negative for: Redness ENT: Negative for: Throat Pain Cardiovascular: Negative for: Chest Pain Respiratory: Negative for: Shortness of Breath Gastrointestinal: Negative for: Nausea, Vomiting Genitourinary: Negative for: Dysuria Musculoskeletal: Negative for: Back Pain Skin: Negative for: Rash Neurological: Positive for: Weakness Psych: Negative for: Anxiety Physical Exam - Physical Exam Appears: Non-toxic, No Acute Distress Skin: Warm, Dry Head: Atraumatic, Normacephalic, No Tenderness Eye(s): bilateral: Normal Inspection Oral Mucosa: Moist Lips: Normal Appearing Neck: Supple Chest: Symmetrical, No Tenderness Cardiovascular: Rhythm Regular, No Murmur Respiratory: No Rales, No Rhonchi, No Wheezing Gastrointestinal/Abdominal: Soft, Tenderness (mild diffuse tenderness ), Organomegaly (hepatomegaly), No Distention, No Guarding, No Rebound Back: Normal Inspection Extremity: Normal ROM, No Tenderness Extremity: Bilateral: Atraumatic Pulses: Left Dorsalis Pedis: Normal, Right Dorsalis Pedis: Normal Neurological/Psych: Oriented x3, Normal Speech, Normal Cognition Gait: Steady ED Course And Treatment - Laboratory Results Result Diagrams: 08/14/17 20:00 08/14/17 20:00 ECG: Interpreted By Me, Viewed By Me ECG Rhythm: Sinus Rhythm (81), 1st Degree HB, R BBB, Nonspecific Changes O2 Sat by Pulse Oximetry: 98 (RA) Pulse Ox Interpretation: Normal Progress Note: EKG, CXR, labs, and blood work were ordered. spoke with general medical practitioner dr cancino, will come and see the pt in ed Critical Care Time - Critical Care Note Total Time (in mins): 30 Documented critical care: time excludes all time spent performing seperately billable procedures. Disposition Discussed With : Ko Mccartney Comment: accepted the pt on his service and took over the care at 8:58PM Doctor Will See Patient In The: ED Counseled Patient/Family Regarding: Studies Performed, Diagnosis - Disposition Disposition: HOSPITALIZED Disposition Time: 19:38 Condition: FAIR Forms: [facility] (Iraqi) - POA Present On Arrival: None - Clinical Impression Clinical Impression: Electrolyte imbalance, Abdominal pain, Hyponatremia - Scribe Statement The provider has reviewed the documentation as recorded by the Scriblo Stevens All medical record entries made by the Unaiblo were at my direction and personally dictated by me. I have reviewed the chart and agree that the record accurately reflects my personal performance of the history, physical exam, medical decision making, and the department course for this patient. I have also personally directed, reviewed, and agree with the discharge instructions and disposition. Decision To Admit - Pt Status Changed To: Hospital Disposition Of: Inpatient - Admit Certification Admit to Inpatient:: After my assessment, the patient will require hospitalization for at least two midnights. This is because of the severity of symptoms shown, intensity of services needed, and/or the medical risk in this patient being treated as an outpatient. - InPatient: Physician Admission Certification: I certify that this patient requires 2 or more midnights of care for the following reason:: After my assessment, the patient will require hospitalization for at least two midnights. This is because of the severity of symptoms shown, intensity of services needed, and/or the medical risk in this patient being treated as an outpatient. - . Bed Request Type: ICU Admitting Physician: Ko Mccartney Patient Diagnosis: Electrolyte imbalance, Abdominal pain, Hyponatremia
[2017-08-14 20:03] LABS: BASO % 1.2 % (0.0-2.0); EOS # 0.1 K/uL (0.0-0.7); EOS % 2.5 % (0.0-4.0); LYMPH % 24.3 % (20.0-40.0); MEAN CELL VOLUME 89.5 fL (80.0-94.0); MEAN CORPUSCULAR HEMOGLOBIN 31.9 pg (27.0-31.0); MEAN CORPUSCULAR HGB CONC 35.6 g/dL (33.0-37.0); MEAN PLATELET VOLUME 7.1 fL (7.2-11.7); MONO # 0.1 K/uL (0.0-0.8); MONO % 1.6 % (0.0-10.0); RED CELL DISTRIBUTION WIDTH 13.2 % (11.5-14.5)
[2017-08-14 20:11] LABS: INR 1.2; RBC URINE 2 /hpf (0-3); URINE BACTERIA RARE (<OCC); URINE BILIRUBIN NEGATIVE (NEGATIVE); URINE BLOOD NEGATIVE (NEGATIVE); URINE COLOR Yellow (YELLOW); URINE GLUCOSE (UA) 1+ mg/dL (Normal); URINE KETONE NEGATIVE (NEGATIVE); URINE LEUKOCYTE ESTERASE NEG Leu/uL (Negative); URINE PROTEIN 1+ mg/dL (NEGATIVE); URINE UROBILINOGEN NORMAL mg/dL (0.2-1.0); WBC URINE 1 /hpf (0-5)
[2017-08-14 20:23] LABS: ALB/GLOB RATIO 1.6 (1.0-2.1); ALKALINE PHOSPHATASE 310 U/L (38-126); ALT/SGPT 52 U/L (21-72); AST/SGOT 54 U/L (17-59); BILIRUBIN,TOTAL 1.6 mg/dL (0.2-1.3); BLOOD UREA NITROGEN 9 mg/dL (9-20); CALCIUM 7.5 mg/dl (8.6-10.4); CARBON DIOXIDE 17 mmol/L (22-30); CHLORIDE 72 mmol/L (98-107); GFR AFRICAN-AMERICAN > 60; GLUCOSE,RANDOM 105 mg/dL (75-110); MAGNESIUM 1.2 mg/dL (1.6-2.3); POTASSIUM 3.9 mmol/L (3.6-5.2); SODIUM 102 mmol/L (132-148); TOTAL PROTEIN 6.1 g/dL (6.3-8.3)
[2017-08-14 20:50] LABS: THYROID STIMULATING HORMONE 3.75 mIU/L (0.46-4.68)
--- NOTE | 2017-08-14 22:21 | CP.PCM.CON ---
History of Present Illness - History of Present Illness History of Present Illness: 62yo M. 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 patient presents with recurrent severe hyponatremia. Only symptoms of weakness , which may be secondary to his metastatic cancer. Review of Systems - Constitutional Constitutional: Weakness Past Patient History - Infectious Disease Hx of Infectious Diseases: None - Past Medical History & Family History Past Medical History?: Yes - Past Social History Smoking Status: Former Smoker - CARDIAC Hx Hypercholesterolemia: Yes Hx Hypertension: Yes Hx Pacemaker: No - PULMONARY Hx Respiratory Disorders: No - NEUROLOGICAL Hx Neurological Disorder: No Hx Paralysis: No - HEENT Hx HEENT Problems: No - RENAL Hx Chronic Kidney Disease: No - ENDOCRINE/METABOLIC Hx Endocrine Disorders: No - HEMATOLOGICAL/ONCOLOGICAL Hx Blood Disorders: Yes Hx Chemotherapy: Yes (mets, liver, pancreas, bones (Patient unaware of dx)) - INTEGUMENTARY Hx Dermatological Problems: No - MUSCULOSKELETAL/RHEUMATOLOGICAL Hx Arthritis: Yes (BACK/ HIP/KNEE) - GASTROINTESTINAL Hx Gastritis: Yes - GENITOURINARY/GYNECOLOGICAL Hx Genitourinary Disorders: No - PSYCHIATRIC Hx Substance Use: No - SURGICAL HISTORY Hx Coronary Artery Bypass Graft: Yes - ANESTHESIA Hx Anesthesia: Yes Hx Anesthesia Reactions: No Hx Malignant Hyperthermia: No Meds Allergies/Adverse Reactions: Allergies Allergy/AdvReac Type Severity Reaction Status Date / Time No Known Allergies Allergy Verified 07/21/17 19:34 Physical Exam - Head Exam Head Exam: ATRAUMATIC, NORMAL INSPECTION, NORMOCEPHALIC - Eye Exam Eye Exam: EOMI, Normal appearance, PERRL - ENT Exam ENT Exam: Mucous Membranes Moist, Normal Exam - Respiratory Exam Respiratory Exam: Clear to Auscultation Bilateral, NORMAL BREATHING PATTERN - Cardiovascular Exam Cardiovascular Exam: REGULAR RHYTHM - GI/Abdominal Exam GI & Abdominal Exam: Normal Bowel Sounds, Soft. absent: Tenderness - Neurological Exam Neurological exam: Alert, CN II-XII Intact, Oriented x3, Reflexes Normal - Psychiatric Exam Psychiatric exam: Normal Affect, Normal Mood Results - Vital Signs Recent Vital Signs: Last Vital Signs Temp 97.8 F 08/14/17 17:46 Pulse 75 08/14/17 21:54 Resp 20 08/14/17 21:54 BP 105/47 L 08/14/17 21:54 Pulse Ox 99 08/14/17 21:54 - Labs Result Diagrams: 08/14/17 20:00 08/14/17 20:00 Labs: Laboratory Results - last 24 hr 08/14/17 08/14/17 08/14/17 20:00 20:00 20:00 WBC 4.0 L D RBC 3.02 L Hgb 9.6 L Hct 27.0 L MCV 89.5 D MCH 31.9 H MCHC 35.6 RDW 13.2 Plt Count 303 MPV 7.1 L Neut % (Auto) 70.4 Lymph % (Auto) 24.3 [place] % (Auto) 1.6 Eos % (Auto) 2.5 Baso % (Auto) 1.2 Neut # 2.8 Lymph # 1.0 [place] # 0.1 Eos # 0.1 Baso # 0.0 PT 13.9 H INR 1.2 APTT 30 Sodium Potassium Chloride Carbon Dioxide Anion Gap BUN Creatinine Est GFR ( Amer) Est GFR (Non-Af Amer) Random Glucose Calcium Magnesium Total Bilirubin AST ALT Alkaline Phosphatase Total Protein Albumin Globulin Albumin/Globulin Ratio Lipase TSH 3rd Generation Urine Color Yellow Urine Clarity Clear Urine pH 6.0 Ur Specific [place] 1.017 Urine Protein 1+ H Urine Glucose (UA) 1+ H Urine Ketones Negative Urine Blood Negative Urine Nitrate Negative Urine Bilirubin Negative Urine Urobilinogen Normal Ur Leukocyte Esterase Neg Urine WBC (Auto) 1 Urine RBC (Auto) 2 Urine Bacteria Rare 08/14/17 20:00 WBC RBC Hgb Hct MCV MCH MCHC RDW Plt Count MPV Neut % (Auto) Lymph % (Auto) [place] % (Auto) Eos % (Auto) Baso % (Auto) Neut # Lymph # [place] # Eos # Baso # PT INR APTT Sodium 102 L* D Potassium 3.9 Chloride 72 L D Carbon Dioxide 17 L Anion Gap 16 BUN 9 Creatinine 0.4 L Est GFR ( Amer) > 60 Est GFR (Non-Af Amer) > 60 Random Glucose 105 Calcium 7.5 L Magnesium 1.2 L Total Bilirubin 1.6 H AST 54 ALT 52 Alkaline Phosphatase 310 H D Total Protein 6.1 L Albumin 3.7 Globulin 2.4 Albumin/Globulin Ratio 1.6 Lipase 372 H TSH 3rd Generation 3.75 Urine Color Urine Clarity Urine pH Ur Specific [place] Urine Protein Urine Glucose (UA) Urine Ketones Urine Blood Urine Nitrate Urine Bilirubin Urine Urobilinogen Ur Leukocyte Esterase Urine WBC (Auto) Urine RBC (Auto) Urine Bacteria Assessment & Plan (1) Hyponatremia Assessment and Plan: 62yo M. 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 patient presents with recurrent severe hyponatremia. Neuro: alert and oriented Pulm: no acute issues, breathing spontaneously on room air CV: hemodynamically stable. HTN, holding meds for now. Hem: no acute issues Renal: severe hyponatremia, starting 3% hypertonic Saline, will titrate off while monitoring Sodium levels q2h. Once sodium >120 can restart patient on tolvaptan, demeclocycline and oral salt tabs for his known SIADH. Patient is also on Chlopromazine, home med, which is also known to cause SIADH, should consider stopping. Endo: no acute issues GI: NPO, strict fluid restriction ID: no acute issues. DVT proph - heparin sq GI proph - pepcid renee for strict I/O's during acute illness Code status - full code Critical Care Time spent 35 minutes The documented time is cumulative and includes review of patient data/exams/labs /chart review and examination of the patient on rounds and throughout the day; time is exclusive of any procedures or teaching time. Status: Acute
[2017-08-15 02:15] LABS: BLOOD UREA NITROGEN 8 mg/dL (9-20); CALCIUM 7.6 mg/dl (8.6-10.4); CARBON DIOXIDE 20 mmol/L (22-30); CHLORIDE 74 mmol/L (98-107); GFR AFRICAN-AMERICAN > 60; GLUCOSE,RANDOM 76 mg/dL (75-110); POTASSIUM 3.7 mmol/L (3.6-5.2); SODIUM 101 mmol/L (132-148)
[2017-08-15] MEDS ORDERED: Sodium Chloride 3% 500 ML IV ONE (02:30)
[2017-08-15 05:11] LABS: BLOOD UREA NITROGEN 7 mg/dL (9-20); CALCIUM 7.8 mg/dl (8.6-10.4); CARBON DIOXIDE 19 mmol/L (22-30); CHLORIDE 75 mmol/L (98-107); GFR AFRICAN-AMERICAN > 60; GLUCOSE,RANDOM 76 mg/dL (75-110); POTASSIUM 3.7 mmol/L (3.6-5.2); SODIUM 105 mmol/L (132-148)
[2017-08-15 07:01] LABS: EOS # 0.1 K/uL (0.0-0.7); EOS % 2.5 % (0.0-4.0); HEMATOCRIT 26.2 % (35.0-51.0); LYMPH # 0.8 K/uL (1.0-4.3); LYMPH % 26.6 % (20.0-40.0); MEAN CELL VOLUME 89.2 fL (80.0-94.0); MEAN CORPUSCULAR HEMOGLOBIN 32.5 pg (27.0-31.0); MEAN CORPUSCULAR HGB CONC 36.4 g/dL (33.0-37.0); MEAN PLATELET VOLUME 7.6 fL (7.2-11.7); MONO # 0.1 K/uL (0.0-0.8); RED CELL DISTRIBUTION WIDTH 13.1 % (11.5-14.5); WHITE BLOOD COUNT 3.1 K/uL (4.8-10.8)
[2017-08-15 07:47] LABS: ALB/GLOB RATIO 1.6 (1.0-2.1); ALKALINE PHOSPHATASE 319 U/L (38-126); ALT/SGPT 47 U/L (21-72); AST/SGOT 52 U/L (17-59); BILIRUBIN,TOTAL 1.8 mg/dL (0.2-1.3); BLOOD UREA NITROGEN 7 mg/dL (9-20); CALCIUM 7.5 mg/dl (8.6-10.4); CARBON DIOXIDE 20 mmol/L (22-30); CHLORIDE 76 mmol/L (98-107); GFR AFRICAN-AMERICAN > 60; GLUCOSE,RANDOM 75 mg/dL (75-110); MAGNESIUM 1.3 mg/dL (1.6-2.3); PHOSPHOROUS 2.7 mg/dL (2.5-4.5); POTASSIUM 3.8 mmol/L (3.6-5.2); SODIUM 105 mmol/L (132-148); TOTAL PROTEIN 5.7 g/dL (6.3-8.3)
--- NOTE | 2017-08-15 10:24 | RAD ---
PROCEDURE: CHEST RADIOGRAPH, 1 VIEW HISTORY: SOB COMPARISON: Chest radiograph dated 07/22/2017. FINDINGS: LUNGS: Pulmonary vascular congestion. PLEURA: No pneumothorax or pleural fluid seen. CARDIOVASCULAR: Prior sternotomy with sternal wires and surgical clips redemonstrated. Cardiomediastinal silhouette stably prominent. OSSEOUS STRUCTURES: Unchanged. VISUALIZED UPPER ABDOMEN: Normal. OTHER FINDINGS: Interval removal of right internal jugular access central venous catheter. IMPRESSION: Pulmonary vascular congestion. No focal consolidation or pleural effusion.
[2017-08-15] MEDS: Enoxaparin 40 mg Syringe SC SCH (10:29)
[2017-08-15] MEDS ORDERED: DEXTROSE 5% IVPB ONE (10:30)
[2017-08-15] MEDS ORDERED: MAGNESIUM SULFATE IVPB ONE (10:30)
[2017-08-15] MEDS ORDERED: WATER IVPB ONE (10:30)
[2017-08-15] MEDS: Simethicone 80 mg Chewtab PO SCH (10:34)
[2017-08-15] MEDS: Magnesium Sulfate 1 gm in D5W 1 GM/100 ML BAG IVPB SCH ×2 (11:08→11:34)
[2017-08-15 11:26] LABS: SODIUM 108 mmol/L (132-148)
[2017-08-15 11:27] LABS: BLOOD UREA NITROGEN 7 mg/dL (9-20); CALCIUM 7.7 mg/dl (8.6-10.4); CARBON DIOXIDE 15 mmol/L (22-30); CHLORIDE 79 mmol/L (98-107); GFR AFRICAN-AMERICAN > 60; GLUCOSE,RANDOM 105 mg/dL (75-110); POTASSIUM 3.9 mmol/L (3.6-5.2)
[2017-08-15] MEDS: Tolvaptan 15 MG TAB PO SCH (11:42)
--- NOTE | 2017-08-15 13:29 | CP.PCM.CON ---
History of Present Illness - History of Present Illness History of Present Illness: Palliative consult requested for goals of care discussion patient is a 61 yo male known to me from previous admissions. Patient was admitted from home with increased weakness. In ED, patient found to be with Na 105 and WBC 3.1., Mg 1.3, Total susan 1.8. Patient has known Hx of lung cancer with mets to liver and bones and is on chemo Tx. Patient is not aware of his diagnosis as family is overprotective and insists on not telling patient his diagnosis. Patient is treated symtomatically. PMH: Lung CA with mets to liver and bones Soc. Hx: , lives with his daughter Soren. Hx: father from natural causes, mother had HTN Review of Systems - Constitutional Constitutional: Weakness - EENT Eyes: absent: As Per HPI, Blind Spots, Blurred Vision, Change in Vision, Decreased Night Vision, Diplopia, Discharge, Dry Eye, Exophthalmos, Floaters, Irritation, Itchy Eyes, Loss of Peripheral Vision, Pain, Photophobia, Requires Corrective Lenses, Sees Flashes, Spots in Vision, Tunnel Vision, Other Visual Disturbances, Loss of Vision, Other Ears: absent: As Per HPI, Decreased Hearing, Ear Discharge, Ear Pain, Tinnitus, Abnormal Hearing, Disequilibrium, Dizziness, Other Nose/Mouth/Throat: absent: As Per HPI, Epistaxis, Nasal Congestion, Nasal Discharge, Nasal Obstruction, Nasal Trauma, Nose Pain, Post Nasal Drip, Sinus Pain, Sinus Pressure, Bleeding Gums, Change in Voice, Dental Pain, Dry Mouth, Dysphagia, Halitosis, Hoarsness, Lip Swelling, Mouth Lesions, Mouth Pain, Odynophagia, Sore Throat, Throat Swelling, Tongue Swelling, Facial Pain, Neck Pain, Neck Mass, Other - Cardiovascular Cardiovascular: Leg Edema - Respiratory Respiratory: Dyspnea on Exertion - Gastrointestinal Gastrointestinal: Nausea, Vomiting - Genitourinary Genitourinary: absent: As Per HPI, Change in Urinary Stream, Difficulty Urinating, Dysuria, Flank Pain, Hematuria, Pyuria, Nocturia, Urinary Incontinence, Urinary Frequency, Urinary Hesitance, Urinary Urgency, Voiding Freq/Small Amts, Freq UTI, Hx Renal/Bladder Calculi, Hx /Renal Surgery, Bladder Distension, Other - Musculoskeletal Musculoskeletal: Muscle Weakness - Integumentary Integumentary: Dry Skin, Jaundice - Neurological Neurological: absent: As Per HPI, Abnormal Gait, Abnormal Hearing, Abnormal Movements, Abnormal Speech, Behavioral Changes, Burning Sensations, Confusion, Convulsions, Disequilibrium, Dizziness, Numbness, Focal Weakness, Frequent Falls , Headaches, Lack of Coordination, Loss of Vision, Memory Loss, Paresthesias, Radicular Pain, Restless Legs, Sensory Deficit, Syncope, Tingling, Tremor, Vertigo, Weakness, Other Visual Disturbances, Other - Psychiatric Psychiatric: Anxiety - Endocrine Endocrine: Fatigue Past Patient History - Infectious Disease Hx of Infectious Diseases: None - Past Medical History & Family History Past Medical History?: Yes - Past Social History Smoking Status: Former Smoker - CARDIAC Hx Hypercholesterolemia: Yes Hx Hypertension: Yes Hx Pacemaker: No - PULMONARY Hx Respiratory Disorders: No - NEUROLOGICAL Hx Neurological Disorder: No Hx Paralysis: No - HEENT Hx HEENT Problems: No - RENAL Hx Chronic Kidney Disease: No - ENDOCRINE/METABOLIC Hx Endocrine Disorders: No - HEMATOLOGICAL/ONCOLOGICAL Hx Blood Disorders: Yes Hx Chemotherapy: Yes (mets, liver, pancreas, bones (Patient unaware of dx)) - INTEGUMENTARY Hx Dermatological Problems: No - MUSCULOSKELETAL/RHEUMATOLOGICAL Hx Falls: No - GASTROINTESTINAL Hx Gastritis: Yes - GENITOURINARY/GYNECOLOGICAL Hx Genitourinary Disorders: No - PSYCHIATRIC Hx Substance Use: No - SURGICAL HISTORY Hx Coronary Artery Bypass Graft: Yes - ANESTHESIA Hx Anesthesia: Yes Hx Anesthesia Reactions: No Hx Malignant Hyperthermia: No Meds Allergies/Adverse Reactions: Allergies Allergy/AdvReac Type Severity Reaction Status Date / Time No Known Allergies Allergy Verified 07/21/17 19:34 - Medications Medications: Current Medications Aspirin (Ecotrin) 81 mg PO DAILY [facility] Last Admin: 08/15/17 10:28 Dose: 81 mg Clopidogrel Bisulfate (Plavix) 75 mg PO DAILY [facility] Last Admin: 08/15/17 10:28 Dose: 75 mg Demeclocycline HCl (Declomycin) 300 mg PO BID [facility] Last Admin: 08/15/17 11:10 Dose: 300 mg Enoxaparin Sodium (Lovenox) 40 mg SC DAILY [facility] Last Admin: 08/15/17 10:29 Dose: 40 mg Famotidine (Pepcid) 20 mg PO DAILY [facility] Last Admin: 08/15/17 10:28 Dose: 20 mg Rosuvastatin Calcium (Crestor) 20 mg PO [facility] Simethicone (Mylicon Chew Tab) 80 mg PO DAILY [facility] Last Admin: 08/15/17 10:34 Dose: 80 mg Sodium Chloride (Hypertonic Saline 3%) 25 ml IV ONCE ONE Stop: 08/15/17 12:53 Tolvaptan (Samsca) 30 mg PO DAILY [facility] Stop: 08/17/17 11:16 Last Admin: 08/15/17 11:42 Dose: 30 mg Tramadol HCl (Ultram) 50 mg PO Q6H [facility] Last Admin: 08/15/17 10:28 Dose: 50 mg Physical Exam - Constitutional Appears: Chronically Ill - Head Exam Head Exam: ATRAUMATIC, NORMAL INSPECTION, NORMOCEPHALIC - Eye Exam Eye Exam: EOMI, Normal appearance, PERRL Pupil Exam: NORMAL ACCOMODATION, PERRL - ENT Exam ENT Exam: Mucous Membranes Moist, Normal Exam - Neck Exam Neck exam: Positive for: Normal Inspection - Respiratory Exam Respiratory Exam: Decreased Breath Sounds - Cardiovascular Exam Cardiovascular Exam: Tachycardia, REGULAR RHYTHM - GI/Abdominal Exam GI & Abdominal Exam: Distended, Guarding, Hypoactive Bowel Sounds - Rectal Exam Rectal Exam: Deferred - Exam Exam: NORMAL INSPECTION - Extremities Exam Extremities exam: Positive for: pedal edema - Back Exam Back exam: NORMAL INSPECTION - Neurological Exam Neurological exam: Alert, Oriented x3 - Psychiatric Exam Psychiatric exam: Normal Affect, Normal Mood - Skin Skin Exam: Intact, Pallor, Warm Results - Vital Signs Recent Vital Signs: Last Vital Signs Temp 97.4 F L 08/15/17 08:00 Pulse 80 08/15/17 12:20 Resp 13 08/15/17 12:20 BP 107/53 L 08/15/17 11:38 Pulse Ox 100 08/15/17 12:20 - Labs Result Diagrams: 08/15/17 06:58 08/15/17 10:49 Labs: Laboratory Results - last 24 hr 08/14/17 08/14/17 08/14/17 20:00 20:00 20:00 WBC 4.0 L D RBC 3.02 L Hgb 9.6 L Hct 27.0 L MCV 89.5 D MCH 31.9 H MCHC 35.6 RDW 13.2 Plt Count 303 MPV 7.1 L Neut % (Auto) 70.4 Lymph % (Auto) 24.3 [place] % (Auto) 1.6 Eos % (Auto) 2.5 Baso % (Auto) 1.2 Neut # 2.8 Lymph # 1.0 [place] # 0.1 Eos # 0.1 Baso # 0.0 PT 13.9 H INR 1.2 APTT 30 Sodium Potassium Chloride Carbon Dioxide Anion Gap BUN Creatinine Est GFR ( Amer) Est GFR (Non-Af Amer) Random Glucose Serum Osmolality Calcium Phosphorus Magnesium Total Bilirubin AST ALT Alkaline Phosphatase Total Protein Albumin Globulin Albumin/Globulin Ratio Lipase TSH 3rd Generation Urine Color Yellow Urine Clarity Clear Urine pH 6.0 Ur Specific [place] 1.017 Urine Protein 1+ H Urine Glucose (UA) 1+ H Urine Ketones Negative Urine Blood Negative Urine Nitrate Negative Urine Bilirubin Negative Urine Urobilinogen Normal Ur Leukocyte Esterase Neg Urine WBC (Auto) 1 Urine RBC (Auto) 2 Urine Bacteria Rare 08/14/17 08/15/17 08/15/17 20:00 01:43 04:33 WBC RBC Hgb Hct MCV MCH MCHC RDW Plt Count MPV Neut % (Auto) Lymph % (Auto) [place] % (Auto) Eos % (Auto) Baso % (Auto) Neut # Lymph # [place] # Eos # Baso # PT INR APTT Sodium 102 L* D 101 L* 105 L* Potassium 3.9 3.7 3.7 Chloride 72 L D 74 L 75 L Carbon Dioxide 17 L 20 L 19 L Anion Gap 16 11 14 BUN 9 8 L 7 L Creatinine 0.4 L 0.4 L 0.3 L Est GFR ( Amer) > 60 > 60 > 60 Est GFR (Non-Af Amer) > 60 > 60 > 60 Random Glucose 105 76 76 Serum Osmolality Calcium 7.5 L 7.6 L 7.8 L Phosphorus Magnesium 1.2 L Total Bilirubin 1.6 H AST 54 ALT 52 Alkaline Phosphatase 310 H D Total Protein 6.1 L Albumin 3.7 Globulin 2.4 Albumin/Globulin Ratio 1.6 Lipase 372 H TSH 3rd Generation 3.75 Urine Color Urine Clarity Urine pH Ur Specific [place] Urine Protein Urine Glucose (UA) Urine Ketones Urine Blood Urine Nitrate Urine Bilirubin Urine Urobilinogen Ur Leukocyte Esterase Urine WBC (Auto) Urine RBC (Auto) Urine Bacteria 08/15/17 08/15/17 08/15/17 06:58 06:58 10:49 WBC 3.1 L RBC 2.93 L Hgb 9.5 L Hct 26.2 L MCV 89.2 MCH 32.5 H MCHC 36.4 RDW 13.1 Plt Count 249 MPV 7.6 Neut % (Auto) 67.9 Lymph % (Auto) 26.6 [place] % (Auto) 2.0 Eos % (Auto) 2.5 Baso % (Auto) 1.0 Neut # 2.1 Lymph # 0.8 L [place] # 0.1 Eos # 0.1 Baso # 0.0 PT INR APTT Sodium 105 L* 108 L* Potassium 3.8 3.9 Chloride 76 L 79 L Carbon Dioxide 20 L 15 L Anion Gap 12 18 BUN 7 L 7 L Creatinine 0.3 L 0.4 L Est GFR ( Amer) > 60 > 60 Est GFR (Non-Af Amer) > 60 > 60 Random Glucose 75 105 Serum Osmolality Calcium 7.5 L 7.7 L Phosphorus 2.7 Magnesium 1.3 L Total Bilirubin 1.8 H AST 52 ALT 47 Alkaline Phosphatase 319 H Total Protein 5.7 L Albumin 3.5 Globulin 2.2 Albumin/Globulin Ratio 1.6 Lipase TSH 3rd Generation Urine Color Urine Clarity Urine pH Ur Specific [place] Urine Protein Urine Glucose (UA) Urine Ketones Urine Blood Urine Nitrate Urine Bilirubin Urine Urobilinogen Ur Leukocyte Esterase Urine WBC (Auto) Urine RBC (Auto) Urine Bacteria 08/15/17 10:49 WBC RBC Hgb Hct MCV MCH MCHC RDW Plt Count MPV Neut % (Auto) Lymph % (Auto) [place] % (Auto) Eos % (Auto) Baso % (Auto) Neut # Lymph # [place] # Eos # Baso # PT INR APTT Sodium Potassium Chloride Carbon Dioxide Anion Gap BUN Creatinine Est GFR ( Amer) Est GFR (Non-Af Amer) Random Glucose Serum Osmolality 235 L Calcium Phosphorus Magnesium Total Bilirubin AST ALT Alkaline Phosphatase Total Protein Albumin Globulin Albumin/Globulin Ratio Lipase TSH 3rd Generation Urine Color Urine Clarity Urine pH Ur Specific [place] Urine Protein Urine Glucose (UA) Urine Ketones Urine Blood Urine Nitrate Urine Bilirubin Urine Urobilinogen Ur Leukocyte Esterase Urine WBC (Auto) Urine RBC (Auto) Urine Bacteria Assessment & Plan - Assessment and Plan (Free Text) Assessment: Palliative consult Code status Full Code, there is no Advance Directive/ Living will on chart, PPS 40% I reviewed medical records, all diagnostic studies, examined patient in the bed and discussed his clinical presentation with his two sons. Patient is alert, oriented X 3, in no acute distress, looking chronically ill. Skin is slightly yellowish , total susan 1.8. Breath sound diminished, reports SOB on excertion. Abdominal distended, diminished breath sounds, reports food intolerance due to loss of taste and nausea after the food consumption. Reports occasional abdominal pain. Pepcid and Ultram on board.There is pedal edema noted. Ambulates with minimal or no assistance. Before aproaching the patient I was cautioned by the family that they would not want him to know his diagnosis. With due respect I corrected their knowledge about ethical issues that it may cause and patient's right to know his treatment options. The two sons insisted. patient did not want to know diagnosis. Away from the patient, I elicited their knowledge of patient's diagnosis and their expectations of care. They were united that they would want the patient to continue with chemo Tx and to fight disease. I reviewed the usual path of disease progression and suggested a few tips to improve patient's food tolerance. I have met with his family and patient at least 3 times so far on different admission date, and each time the family stayed strongly against any goals of care discussion with patient. Family believe that patient will get depressed and give up fighting disease. Impression * This is a chronically ill man with advanced cancer, on chemo Tx * Immediate family is over protective of patient and claims patient does not want to know about his diagnosis * Family is extremely biased by cultural and episcopal influences and has a poor input in patient's condition * Patient states would want to continue his chemo Tx * Code status not established as family refused to talk about it Suggestions * Would manage symptoms and correct electrolyte imbalance * Would discharge home as patient is not in acute distress and claims enough of support at home. His symptoms could be managed as an outpatient
--- NOTE | 2017-08-15 15:23 | CP.CCUPN ---
<Wily Dickerson - Last Filed: 08/15/17 15:16> CCU Subjective - Physician Review Subjective (Free Text): PGY1 ICU progress note for Dr. Ahmadi Patient seen and examined this morning at bedside. Patient states he is feeling well. He reports improving weakness. He also states that he does not enjoy eating due to loss of taste. He was told this could be a side effect of his current chemotherapy. Patient denies any complaints at this time. CCU Objective - Vital Signs / Intake & Output Vital Signs (Last 4 hours): Vital Signs Temp Pulse Resp BP Pulse Ox 08/15/17 15:00 88 16 08/15/17 14:50 84 15 100 08/15/17 14:40 87 16 99 08/15/17 14:38 86 16 106/62 98 08/15/17 14:30 87 15 98 08/15/17 14:20 87 14 99 08/15/17 14:10 87 18 100 08/15/17 14:00 85 17 99 08/15/17 13:50 88 17 99 08/15/17 13:40 94 H 14 98 08/15/17 13:39 92 H 15 128/58 L 99 08/15/17 13:30 91 H 15 99 08/15/17 13:20 86 15 100 08/15/17 13:10 82 13 100 08/15/17 13:00 97.9 F 79 12 100 08/15/17 12:50 78 11 L 100 08/15/17 12:41 83 15 116/57 L 99 08/15/17 12:40 88 16 99 08/15/17 12:30 80 14 100 08/15/17 12:20 80 13 100 08/15/17 12:10 80 12 100 08/15/17 12:00 79 11 L 100 08/15/17 11:50 85 17 99 08/15/17 11:40 78 13 100 08/15/17 11:38 77 12 107/53 L 100 08/15/17 11:30 77 12 100 08/15/17 11:20 76 12 100 Intake and Output (Last 8hrs): Intake & Output 08/15/17 08/15/17 08/15/17 06:59 14:59 22:59 Intake Total 220 690 Output Total 700 0 Balance -480 690 Weight 120 lb Intake: Intake, IV Amount 220 440 Left Antecubital 220 240 Right Forearm 200 Oral 250 Output: Urine 700 0 Urine, Voided 700 0 Other: Voiding Method Urinal - Physical Exam Head: Positive for: Atraumatic, Normocephalic Extroacular Muscles: Positive for: EOMI Conjunctiva: Positive for: Normal Mouth: Positive for: Moist Mucous Membranes Respiratory/Chest: Positive for: Clear to Auscultation, Good Air Exchange. Negative for: Respiratory Distress, Accessory Muscle Use Cardiovascular: Positive for: Regular Rate and Rhythm Abdomen: Negative for: Tenderness, Distention Neurological: Positive for: CN II-XII Intact, Speech Normal, Motor Func Grossly Intact Skin: Positive for: Warm, Dry Psychiatric: Positive for: Alert, Oriented x 3 - Medications Active Medications: Active Medications Generic Name Dose Route Start Last Admin Trade Name Freq PRN Reason Stop Dose Admin Aspirin 81 mg 08/15/17 10:00 08/15/17 10:28 Ecotrin PO 81 mg DAILY AWILDA Administration Clopidogrel Bisulfate 75 mg 08/15/17 10:00 08/15/17 10:28 Plavix PO 75 mg DAILY AWILDA Administration Demeclocycline HCl 300 mg 08/15/17 10:45 08/15/17 11:10 Declomycin PO 300 mg BID AWILDA Administration Enoxaparin Sodium 40 mg 08/15/17 10:00 08/15/17 10:29 Lovenox SC 40 mg DAILY AWILDA Administration Famotidine 20 mg 08/15/17 10:00 08/15/17 10:28 Pepcid PO 20 mg DAILY AWILDA Administration Rosuvastatin Calcium 20 mg 08/15/17 22:00 Crestor PO HS AWILDA Simethicone 80 mg 08/15/17 10:00 08/15/17 10:34 Mylicon Chew Tab PO 80 mg DAILY AWILDA Administration Sodium Chloride 25 ml 08/15/17 12:52 Hypertonic Saline 3% IV 08/15/17 12:53 ONCE ONE Tolvaptan 30 mg 08/15/17 11:15 08/15/17 11:42 Samsca PO 08/17/17 11:16 30 mg DAILY AWILDA Administration Tramadol HCl 50 mg 08/15/17 16:30 Ultram PO Q6H AWILDA - Patient Studies Lab Studies: Lab Studies 08/15/17 08/15/17 08/15/17 Range/Units 10:49 10:49 06:58 WBC (4.8-10.8) K/uL RBC (4.40-5.90) Mil/uL Hgb (12.0-18.0) g/dL Hct (35.0-51.0) % MCV (80.0-94.0) fL MCH (27.0-31.0) pg MCHC (33.0-37.0) g/dL RDW (11.5-14.5) % Plt Count (130-400) K/uL MPV (7.2-11.7) fL Neut % (Auto) (50.0-75.0) % Lymph % (Auto) (20.0-40.0) % [place] % (Auto) (0.0-10.0) % Eos % (Auto) (0.0-4.0) % Baso % (Auto) (0.0-2.0) % Neut # (1.8-7.0) K/uL Lymph # (1.0-4.3) K/uL [place] # (0.0-0.8) K/uL Eos # (0.0-0.7) K/uL Baso # (0.0-0.2) K/uL PT (9.7-12.2) SECONDS INR APTT (21-34) SECONDS Sodium 108 L* 105 L* (132-148) mmol/L Potassium 3.9 3.8 (3.6-5.2) mmol/L Chloride 79 L 76 L (98-107) mmol/L Carbon Dioxide 15 L 20 L (22-30) mmol/L Anion Gap 18 12 (10-20) BUN 7 L 7 L (9-20) mg/dL Creatinine 0.4 L 0.3 L (0.8-1.5) mg/dL Est GFR ( Amer) > 60 > 60 Est GFR (Non-Af Amer) > 60 > 60 Random Glucose 105 75 (75-110) mg/dL Serum Osmolality 235 L (272-300) mosm/kg Calcium 7.7 L 7.5 L (8.6-10.4) mg/dl Phosphorus 2.7 (2.5-4.5) mg/dL Magnesium 1.3 L (1.6-2.3) mg/dL Total Bilirubin 1.8 H (0.2-1.3) mg/dL AST 52 (17-59) U/L ALT 47 (21-72) U/L Alkaline Phosphatase 319 H (38-126) U/L Total Protein 5.7 L (6.3-8.3) g/dL Albumin 3.5 (3.5-5.0) g/dL Globulin 2.2 (2.2-3.9) gm/dL Albumin/Globulin Ratio 1.6 (1.0-2.1) Lipase (23-300) U/L TSH 3rd Generation (0.46-4.68) mIU/L Urine Color (YELLOW) Urine Clarity (Clear) Urine pH (5.0-8.0) Ur Specific [place] (1.003-1.030) Urine Protein (NEGATIVE) mg/dL Urine Glucose (UA) (Normal) mg/dL Urine Ketones (NEGATIVE) mg/dL Urine Blood (NEGATIVE) Urine Nitrate (NEGATIVE) Urine Bilirubin (NEGATIVE) Urine Urobilinogen (0.2-1.0) mg/dL Ur Leukocyte Esterase (Negative) Maria [place] Rosario/uL Urine WBC (Auto) (0-5) /hpf Urine RBC (Auto) (0-3) /hpf Urine Bacteria (<OCC) 08/15/17 08/15/17 08/15/17 Range/Units 06:58 04:33 01:43 WBC 3.1 L (4.8-10.8) K/uL RBC 2.93 L (4.40-5.90) Mil/uL Hgb 9.5 L (12.0-18.0) g/dL Hct 26.2 L (35.0-51.0) % MCV 89.2 (80.0-94.0) fL MCH 32.5 H (27.0-31.0) pg MCHC 36.4 (33.0-37.0) g/dL RDW 13.1 (11.5-14.5) % Plt Count 249 (130-400) K/uL MPV 7.6 (7.2-11.7) fL Neut % (Auto) 67.9 (50.0-75.0) % Lymph % (Auto) 26.6 (20.0-40.0) % [place] % (Auto) 2.0 (0.0-10.0) % Eos % (Auto) 2.5 (0.0-4.0) % Baso % (Auto) 1.0 (0.0-2.0) % Neut # 2.1 (1.8-7.0) K/uL Lymph # 0.8 L (1.0-4.3) K/uL [place] # 0.1 (0.0-0.8) K/uL Eos # 0.1 (0.0-0.7) K/uL Baso # 0.0 (0.0-0.2) K/uL PT (9.7-12.2) SECONDS INR APTT (21-34) SECONDS Sodium 105 L* 101 L* (132-148) mmol/L Potassium 3.7 3.7 (3.6-5.2) mmol/L Chloride 75 L 74 L (98-107) mmol/L Carbon Dioxide 19 L 20 L (22-30) mmol/L Anion Gap 14 11 (10-20) BUN 7 L 8 L (9-20) mg/dL Creatinine 0.3 L 0.4 L (0.8-1.5) mg/dL Est GFR ( Amer) > 60 > 60 Est GFR (Non-Af Amer) > 60 > 60 Random Glucose 76 76 (75-110) mg/dL Serum Osmolality (272-300) mosm/kg Calcium 7.8 L 7.6 L (8.6-10.4) mg/dl Phosphorus (2.5-4.5) mg/dL Magnesium (1.6-2.3) mg/dL Total Bilirubin (0.2-1.3) mg/dL AST (17-59) U/L ALT (21-72) U/L Alkaline Phosphatase (38-126) U/L Total Protein (6.3-8.3) g/dL Albumin (3.5-5.0) g/dL Globulin (2.2-3.9) gm/dL Albumin/Globulin Ratio (1.0-2.1) Lipase (23-300) U/L TSH 3rd Generation (0.46-4.68) mIU/L Urine Color (YELLOW) Urine Clarity (Clear) Urine pH (5.0-8.0) Ur Specific [place] (1.003-1.030) Urine Protein (NEGATIVE) mg/dL Urine Glucose (UA) (Normal) mg/dL Urine Ketones (NEGATIVE) mg/dL Urine Blood (NEGATIVE) Urine Nitrate (NEGATIVE) Urine Bilirubin (NEGATIVE) Urine Urobilinogen (0.2-1.0) mg/dL Ur Leukocyte Esterase (Negative) Maria [place] Rosario/uL Urine WBC (Auto) (0-5) /hpf Urine RBC (Auto) (0-3) /hpf Urine Bacteria (<OCC) 08/14/17 08/14/17 08/14/17 Range/Units 20:00 20:00 20:00 WBC (4.8-10.8) K/uL RBC (4.40-5.90) Mil/uL Hgb (12.0-18.0) g/dL Hct (35.0-51.0) % MCV (80.0-94.0) fL MCH (27.0-31.0) pg MCHC (33.0-37.0) g/dL RDW (11.5-14.5) % Plt Count (130-400) K/uL MPV (7.2-11.7) fL Neut % (Auto) (50.0-75.0) % Lymph % (Auto) (20.0-40.0) % [place] % (Auto) (0.0-10.0) % Eos % (Auto) (0.0-4.0) % Baso % (Auto) (0.0-2.0) % Neut # (1.8-7.0) K/uL Lymph # (1.0-4.3) K/uL [place] # (0.0-0.8) K/uL Eos # (0.0-0.7) K/uL Baso # (0.0-0.2) K/uL PT 13.9 H (9.7-12.2) SECONDS INR 1.2 APTT 30 (21-34) SECONDS Sodium 102 L* D (132-148) mmol/L Potassium 3.9 (3.6-5.2) mmol/L Chloride 72 L D (98-107) mmol/L Carbon Dioxide 17 L (22-30) mmol/L Anion Gap 16 (10-20) BUN 9 (9-20) mg/dL Creatinine 0.4 L (0.8-1.5) mg/dL Est GFR ( Amer) > 60 Est GFR (Non-Af Amer) > 60 Random Glucose 105 (75-110) mg/dL Serum Osmolality (272-300) mosm/kg Calcium 7.5 L (8.6-10.4) mg/dl Phosphorus (2.5-4.5) mg/dL Magnesium 1.2 L (1.6-2.3) mg/dL Total Bilirubin 1.6 H (0.2-1.3) mg/dL AST 54 (17-59) U/L ALT 52 (21-72) U/L Alkaline Phosphatase 310 H D (38-126) U/L Total Protein 6.1 L (6.3-8.3) g/dL Albumin 3.7 (3.5-5.0) g/dL Globulin 2.4 (2.2-3.9) gm/dL Albumin/Globulin Ratio 1.6 (1.0-2.1) Lipase 372 H (23-300) U/L TSH 3rd Generation 3.75 (0.46-4.68) mIU/L Urine Color Yellow (YELLOW) Urine Clarity Clear (Clear) Urine pH 6.0 (5.0-8.0) Ur Specific [place] 1.017 (1.003-1.030) Urine Protein 1+ H (NEGATIVE) mg/dL Urine Glucose (UA) 1+ H (Normal) mg/dL Urine Ketones Negative (NEGATIVE) mg/dL Urine Blood Negative (NEGATIVE) Urine Nitrate Negative (NEGATIVE) Urine Bilirubin Negative (NEGATIVE) Urine Urobilinogen Normal (0.2-1.0) mg/dL Ur Leukocyte Esterase Neg (Negative) Maria Del Rosario/uL Urine WBC (Auto) 1 (0-5) /hpf Urine RBC (Auto) 2 (0-3) /hpf Urine Bacteria Rare (<OCC) 08/14/17 Range/Units 20:00 WBC 4.0 L D (4.8-10.8) K/uL RBC 3.02 L (4.40-5.90) Mil/uL Hgb 9.6 L (12.0-18.0) g/dL Hct 27.0 L (35.0-51.0) % MCV 89.5 D (80.0-94.0) fL MCH 31.9 H (27.0-31.0) pg MCHC 35.6 (33.0-37.0) g/dL RDW 13.2 (11.5-14.5) % Plt Count 303 (130-400) K/uL MPV 7.1 L (7.2-11.7) fL Neut % (Auto) 70.4 (50.0-75.0) % Lymph % (Auto) 24.3 (20.0-40.0) % [place] % (Auto) 1.6 (0.0-10.0) % Eos % (Auto) 2.5 (0.0-4.0) % Baso % (Auto) 1.2 (0.0-2.0) % Neut # 2.8 (1.8-7.0) K/uL Lymph # 1.0 (1.0-4.3) K/uL [place] # 0.1 (0.0-0.8) K/uL Eos # 0.1 (0.0-0.7) K/uL Baso # 0.0 (0.0-0.2) K/uL PT (9.7-12.2) SECONDS INR APTT (21-34) SECONDS Sodium (132-148) mmol/L Potassium (3.6-5.2) mmol/L Chloride (98-107) mmol/L Carbon Dioxide (22-30) mmol/L Anion Gap (10-20) BUN (9-20) mg/dL Creatinine (0.8-1.5) mg/dL Est GFR ( Amer) Est GFR (Non-Af Amer) Random Glucose (75-110) mg/dL Serum Osmolality (272-300) mosm/kg Calcium (8.6-10.4) mg/dl Phosphorus (2.5-4.5) mg/dL Magnesium (1.6-2.3) mg/dL Total Bilirubin (0.2-1.3) mg/dL AST (17-59) U/L ALT (21-72) U/L Alkaline Phosphatase (38-126) U/L Total Protein (6.3-8.3) g/dL Albumin (3.5-5.0) g/dL Globulin (2.2-3.9) gm/dL Albumin/Globulin Ratio (1.0-2.1) Lipase (23-300) U/L TSH 3rd Generation (0.46-4.68) mIU/L Urine Color (YELLOW) Urine Clarity (Clear) Urine pH (5.0-8.0) Ur Specific [place] (1.003-1.030) Urine Protein (NEGATIVE) mg/dL Urine Glucose (UA) (Normal) mg/dL Urine Ketones (NEGATIVE) mg/dL Urine Blood (NEGATIVE) Urine Nitrate (NEGATIVE) Urine Bilirubin (NEGATIVE) Urine Urobilinogen (0.2-1.0) mg/dL Ur Leukocyte Esterase (Negative) Maria [place] Rosario/uL Urine WBC (Auto) (0-5) /hpf Urine RBC (Auto) (0-3) /hpf Urine Bacteria (<OCC) Laboratory Results - last 24 hr 08/14/17 08/14/17 08/14/17 20:00 20:00 20:00 WBC 4.0 L D RBC 3.02 L Hgb 9.6 L Hct 27.0 L MCV 89.5 D MCH 31.9 H MCHC 35.6 RDW 13.2 Plt Count 303 MPV 7.1 L Neut % (Auto) 70.4 Lymph % (Auto) 24.3 [place] % (Auto) 1.6 Eos % (Auto) 2.5 Baso % (Auto) 1.2 Neut # 2.8 Lymph # 1.0 [place] # 0.1 Eos # 0.1 Baso # 0.0 PT 13.9 H INR 1.2 APTT 30 Sodium Potassium Chloride Carbon Dioxide Anion Gap BUN Creatinine Est GFR ( Amer) Est GFR (Non-Af Amer) Random Glucose Serum Osmolality Calcium Phosphorus Magnesium Total Bilirubin AST ALT Alkaline Phosphatase Total Protein Albumin Globulin Albumin/Globulin Ratio Lipase TSH 3rd Generation Urine Color Yellow Urine Clarity Clear Urine pH 6.0 Ur Specific [place] 1.017 Urine Protein 1+ H Urine Glucose (UA) 1+ H Urine Ketones Negative Urine Blood Negative Urine Nitrate Negative Urine Bilirubin Negative Urine Urobilinogen Normal Ur Leukocyte Esterase Neg Urine WBC (Auto) 1 Urine RBC (Auto) 2 Urine Bacteria Rare 08/14/17 08/15/17 08/15/17 20:00 01:43 04:33 WBC RBC Hgb Hct MCV MCH MCHC RDW Plt Count MPV Neut % (Auto) Lymph % (Auto) [place] % (Auto) Eos % (Auto) Baso % (Auto) Neut # Lymph # [place] # Eos # Baso # PT INR APTT Sodium 102 L* D 101 L* 105 L* Potassium 3.9 3.7 3.7 Chloride 72 L D 74 L 75 L Carbon Dioxide 17 L 20 L 19 L Anion Gap 16 11 14 BUN 9 8 L 7 L Creatinine 0.4 L 0.4 L 0.3 L Est GFR ( Amer) > 60 > 60 > 60 Est GFR (Non-Af Amer) > 60 > 60 > 60 Random Glucose 105 76 76 Serum Osmolality Calcium 7.5 L 7.6 L 7.8 L Phosphorus Magnesium 1.2 L Total Bilirubin 1.6 H AST 54 ALT 52 Alkaline Phosphatase 310 H D Total Protein 6.1 L Albumin 3.7 Globulin 2.4 Albumin/Globulin Ratio 1.6 Lipase 372 H TSH 3rd Generation 3.75 Urine Color Urine Clarity Urine pH Ur Specific [place] Urine Protein Urine Glucose (UA) Urine Ketones Urine Blood Urine Nitrate Urine Bilirubin Urine Urobilinogen Ur Leukocyte Esterase Urine WBC (Auto) Urine RBC (Auto) Urine Bacteria 08/15/17 08/15/17 08/15/17 06:58 06:58 10:49 WBC 3.1 L RBC 2.93 L Hgb 9.5 L Hct 26.2 L MCV 89.2 MCH 32.5 H MCHC 36.4 RDW 13.1 Plt Count 249 MPV 7.6 Neut % (Auto) 67.9 Lymph % (Auto) 26.6 [place] % (Auto) 2.0 Eos % (Auto) 2.5 Baso % (Auto) 1.0 Neut # 2.1 Lymph # 0.8 L [place] # 0.1 Eos # 0.1 Baso # 0.0 PT INR APTT Sodium 105 L* 108 L* Potassium 3.8 3.9 Chloride 76 L 79 L Carbon Dioxide 20 L 15 L Anion Gap 12 18 BUN 7 L 7 L Creatinine 0.3 L 0.4 L Est GFR ( Amer) > 60 > 60 Est GFR (Non-Af Amer) > 60 > 60 Random Glucose 75 105 Serum Osmolality Calcium 7.5 L 7.7 L Phosphorus 2.7 Magnesium 1.3 L Total Bilirubin 1.8 H AST 52 ALT 47 Alkaline Phosphatase 319 H Total Protein 5.7 L Albumin 3.5 Globulin 2.2 Albumin/Globulin Ratio 1.6 Lipase TSH 3rd Generation Urine Color Urine Clarity Urine pH Ur Specific [place] Urine Protein Urine Glucose (UA) Urine Ketones Urine Blood Urine Nitrate Urine Bilirubin Urine Urobilinogen Ur Leukocyte Esterase Urine WBC (Auto) Urine RBC (Auto) Urine Bacteria 08/15/17 10:49 WBC RBC Hgb Hct MCV MCH MCHC RDW Plt Count MPV Neut % (Auto) Lymph % (Auto) [place] % (Auto) Eos % (Auto) Baso % (Auto) Neut # Lymph # [place] # Eos # Baso # PT INR APTT Sodium Potassium Chloride Carbon Dioxide Anion Gap BUN Creatinine Est GFR ( Amer) Est GFR (Non-Af Amer) Random Glucose Serum Osmolality 235 L Calcium Phosphorus Magnesium Total Bilirubin AST ALT Alkaline Phosphatase Total Protein Albumin Globulin Albumin/Globulin Ratio Lipase TSH 3rd Generation Urine Color Urine Clarity Urine pH Ur Specific [place] Urine Protein Urine Glucose (UA) Urine Ketones Urine Blood Urine Nitrate Urine Bilirubin Urine Urobilinogen Ur Leukocyte Esterase Urine WBC (Auto) Urine RBC (Auto) Urine Bacteria EKG/Cardiology Studies: Cardiology / EKG Studies 08/14/17 19:40 ELECTROCARDIOGRAM Stat Comment: Mode Of Transportation: BED Reason For Exam: Pain Review of Systems - Review of Systems All systems: reviewed and no additional remarkable complaints except (as per HPI ) Critical Care Progress Note - Nutrition Nutrition: Nutrition Category Date Time Status Heart Healthy Diet [DIET] Diets 08/15/17 Lunch Active Assessment/Plan - Assessment and Plan (Free Text) Assessment: 62yo M. 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 patient presents with recurrent severe hyponatremia. Plan: 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 Na: 108 Tolvaptan 30mg po daily Demeclocycline 300mg po BID Ma.3 - repleted monitor CMP GI: small cell lung ca with mets to liver being treated with chemotherapy Heme: patient hemodynamically stable H/H: 9.5/26.2 Prophylactic Care: ASA 81mg PO daily Plavix 75mg PO daily Lovenox 40mg SC daily Pepcid 20mg PO daily Crestor 20mg PO HS Case discussed with Dr. Galdino Julien Tuan PGY1 <Luther Ahmadi - Last Filed: 08/16/17 17:52> CCU Objective - Vital Signs / Intake & Output Vital Signs (Last 4 hours): Vital Signs Temp Pulse Resp BP Pulse Ox 08/16/17 16:00 97.6 F 08/16/17 14:39 87 12 126/63 100 08/16/17 14:00 113 H 18 94 L Intake and Output (Last 8hrs): Intake & Output 08/16/17 08/16/17 08/16/17 06:59 14:59 22:59 Intake Total 300 500 Output Total 1150 1300 Balance -850 -800 Weight 121 lb 3.2 oz Intake: Oral 300 500 Output: Urine 1150 1300 Urine, Voided 1150 1300 Other: # Voids Urine, Voided 1 - Medications Active Medications: Active Medications Generic Name Dose Route Start Last Admin Trade Name Freq PRN Reason Stop Dose Admin Aspirin 81 mg 08/15/17 10:00 08/16/17 10:06 Ecotrin PO 81 mg DAILY AWILDA Administration Clopidogrel Bisulfate 75 mg 08/15/17 10:00 08/16/17 10:08 Plavix PO 75 mg DAILY AWILDA Administration Demeclocycline HCl 300 mg 08/15/17 10:45 08/16/17 10:21 Declomycin PO 300 mg BID AWILDA Administration Docusate Sodium 100 mg 08/15/17 20:45 08/16/17 10:05 Colace PO 100 mg BID AWILDA Administration Enoxaparin Sodium 40 mg 08/15/17 10:00 08/16/17 10:07 Lovenox SC 40 mg DAILY AWILDA Administration Famotidine 20 mg 08/15/17 10:00 08/16/17 10:07 Pepcid PO 20 mg DAILY AWILDA Administration Lactulose 20 gm 08/16/17 18:00 Enulose PO BID AWILDA Rosuvastatin Calcium 20 mg 08/15/17 22:00 08/15/17 22:09 Crestor PO 20 mg HS AWILDA Administration Simethicone 80 mg 08/15/17 10:00 08/16/17 10:07 Mylicon Chew Tab PO 80 mg DAILY AWILDA Administration Tolvaptan 30 mg 08/15/17 11:15 08/16/17 10:21 Samsca PO 08/17/17 11:16 30 mg DAILY AWILDA Administration Tramadol HCl 50 mg 08/15/17 16:30 08/16/17 16:47 Ultram PO 50 mg Q6H AWILDA Administration - Patient Studies Lab Studies: Microbiology Studies 08/15/17 Unknown MRSA Culture (Admit) - Final Nose MRSA NOT DETECTED Lab Studies 08/16/17 08/16/17 Range/Units 06:29 06:29 WBC 4.1 L (4.8-10.8) K/uL RBC 3.62 L (4.40-5.90) Mil/uL Hgb 11.6 L D (12.0-18.0) g/dL Hct 33.0 L (35.0-51.0) % MCV 91.2 D (80.0-94.0) fL MCH 32.1 H (27.0-31.0) pg MCHC 35.1 (33.0-37.0) g/dL RDW 13.4 (11.5-14.5) % Plt Count 316 (130-400) K/uL MPV 7.8 (7.2-11.7) fL Neut % (Auto) 75.5 H (50.0-75.0) % Lymph % (Auto) 18.7 L (20.0-40.0) % [place] % (Auto) 3.0 (0.0-10.0) % Eos % (Auto) 1.4 (0.0-4.0) % Baso % (Auto) 1.4 (0.0-2.0) % Neut # 3.1 (1.8-7.0) K/uL Lymph # 0.8 L (1.0-4.3) K/uL [place] # 0.1 (0.0-0.8) K/uL Eos # 0.1 (0.0-0.7) K/uL Baso # 0.1 (0.0-0.2) K/uL Sodium 124 L (132-148) mmol/L Potassium 4.1 (3.6-5.2) mmol/L Chloride 91 L (98-107) mmol/L Carbon Dioxide 19 L (22-30) mmol/L Anion Gap 17 (10-20) BUN 10 (9-20) mg/dL Creatinine 0.5 L (0.8-1.5) mg/dL Est GFR ( Amer) > 60 Est GFR (Non-Af Amer) > 60 Random Glucose 101 (75-110) mg/dL Calcium 8.5 L (8.6-10.4) mg/dl Phosphorus 3.6 (2.5-4.5) mg/dL Magnesium 2.2 (1.6-2.3) mg/dL Total Bilirubin 0.8 (0.2-1.3) mg/dL AST 58 (17-59) U/L ALT 54 (21-72) U/L Alkaline Phosphatase 381 H (38-126) U/L Total Protein 7.8 (6.3-8.3) g/dL Albumin 4.2 (3.5-5.0) g/dL Globulin 3.6 (2.2-3.9) gm/dL Albumin/Globulin Ratio 1.1 (1.0-2.1) Laboratory Results - last 24 hr 08/16/17 08/16/17 06:29 06:29 WBC 4.1 L RBC 3.62 L Hgb 11.6 L D Hct 33.0 L MCV 91.2 D MCH 32.1 H MCHC 35.1 RDW 13.4 Plt Count 316 MPV 7.8 Neut % (Auto) 75.5 H Lymph % (Auto) 18.7 L [place] % (Auto) 3.0 Eos % (Auto) 1.4 Baso % (Auto) 1.4 Neut # 3.1 Lymph # 0.8 L [place] # 0.1 Eos # 0.1 Baso # 0.1 Sodium 124 L Potassium 4.1 Chloride 91 L Carbon Dioxide 19 L Anion Gap 17 BUN 10 Creatinine 0.5 L Est GFR ( Amer) > 60 Est GFR (Non-Af Amer) > 60 Random Glucose 101 Calcium 8.5 L Phosphorus 3.6 Magnesium 2.2 Total Bilirubin 0.8 AST 58 ALT 54 Alkaline Phosphatase 381 H Total Protein 7.8 Albumin 4.2 Globulin 3.6 Albumin/Globulin Ratio 1.1 Critical Care Progress Note - Nutrition Nutrition: Nutrition Category Date Time Status Heart Healthy Diet [DIET] Diets 08/15/17 Lunch Active Attending/Attestation - Attestation I have personally seen and examined this patient.: Yes I have fully participated in the care of the patient.: Yes I have reviewed all pertinent clinical information: Yes Notes (Text): Patient seen and examined in the intensive care unit. Case discussed with house staff Patient started on Samska her severe hyponatremia secondary to SIADH 3% sodium chloride discontinued
[2017-08-15 16:24] LABS: BLOOD UREA NITROGEN 8 mg/dL (9-20); CALCIUM 7.8 mg/dl (8.6-10.4); CARBON DIOXIDE 20 mmol/L (22-30); CHLORIDE 81 mmol/L (98-107); GFR AFRICAN-AMERICAN > 60; GLUCOSE,RANDOM 94 mg/dL (75-110); POTASSIUM 4.1 mmol/L (3.6-5.2); SODIUM 111 mmol/L (132-148)
--- NOTE | 2017-08-15 16:31 | CP.PCM.HP ---
History of Present Illness - History of Present Illness History of Present Illness: 62-year-old male with PMHarthritis, gastritis, HTN, hypercholesterolemia and metastatic small cell lung cancer presents to the ER for C/ generalized weakness. C/Ogeneralized weakness for a few days. Patient states that he was recently evaluated in the ER 10 days ago for similar complaints, and was diagnosed with hyponatremia. No C/Ofever, chills, vomiting, headache, conversion, shortness of breath. Present on Admission - Present on Admission Any Indicators Present on Admission: No Past Patient History - Infectious Disease Hx of Infectious Diseases: None - Past Medical History & Family History Past Medical History?: Yes - Past Social History Smoking Status: Former Smoker - CARDIAC Hx Hypercholesterolemia: Yes Hx Hypertension: Yes Hx Pacemaker: No - PULMONARY Hx Respiratory Disorders: No - NEUROLOGICAL Hx Neurological Disorder: No Hx Paralysis: No - HEENT Hx HEENT Problems: No - RENAL Hx Chronic Kidney Disease: No - ENDOCRINE/METABOLIC Hx Endocrine Disorders: No - HEMATOLOGICAL/ONCOLOGICAL Hx Blood Disorders: Yes Hx Chemotherapy: Yes (mets, liver, pancreas, bones (Patient unaware of dx)) - INTEGUMENTARY Hx Dermatological Problems: No - MUSCULOSKELETAL/RHEUMATOLOGICAL Hx Falls: No - GASTROINTESTINAL Hx Gastritis: Yes - GENITOURINARY/GYNECOLOGICAL Hx Genitourinary Disorders: No - PSYCHIATRIC Hx Substance Use: No - SURGICAL HISTORY Hx Coronary Artery Bypass Graft: Yes - ANESTHESIA Hx Anesthesia: Yes Hx Anesthesia Reactions: No Hx Malignant Hyperthermia: No Meds Allergies/Adverse Reactions: Allergies Allergy/AdvReac Type Severity Reaction Status Date / Time No Known Allergies Allergy Verified 07/21/17 19:34 Physical Exam - Constitutional Appears: Well - Head Exam Head Exam: ATRAUMATIC, NORMAL INSPECTION, NORMOCEPHALIC - Eye Exam Eye Exam: EOMI, Normal appearance, PERRL Pupil Exam: NORMAL ACCOMODATION, PERRL - ENT Exam ENT Exam: Mucous Membranes Moist, Normal Exam - Neck Exam Neck exam: Positive for: Normal Inspection - Respiratory Exam Respiratory Exam: Decreased Breath Sounds - Cardiovascular Exam Cardiovascular Exam: REGULAR RHYTHM, +S1, +S2 - GI/Abdominal Exam GI & Abdominal Exam: Diminished Bowel Sounds, Soft - Rectal Exam Rectal Exam: Deferred Results - Vital Signs Recent Vital Signs: Last Vital Signs Temp 98.3 F 08/15/17 16:00 Pulse 83 08/15/17 16:00 Resp 17 08/15/17 16:00 BP 97/47 L 08/15/17 15:39 Pulse Ox 99 08/15/17 16:00 - Labs Result Diagrams: 08/16/17 06:29 08/16/17 06:29 Labs: Laboratory Results - last 24 hr 08/14/17 08/14/17 08/14/17 20:00 20:00 20:00 WBC 4.0 L D RBC 3.02 L Hgb 9.6 L Hct 27.0 L MCV 89.5 D MCH 31.9 H MCHC 35.6 RDW 13.2 Plt Count 303 MPV 7.1 L Neut % (Auto) 70.4 Lymph % (Auto) 24.3 Reynolds % (Auto) 1.6 Eos % (Auto) 2.5 Baso % (Auto) 1.2 Neut # 2.8 Lymph # 1.0 Reynolds # 0.1 Eos # 0.1 Baso # 0.0 PT 13.9 H INR 1.2 APTT 30 Sodium Potassium Chloride Carbon Dioxide Anion Gap BUN Creatinine Est GFR ( Amer) Est GFR (Non-Af Amer) Random Glucose Serum Osmolality Calcium Phosphorus Magnesium Total Bilirubin AST ALT Alkaline Phosphatase Total Protein Albumin Globulin Albumin/Globulin Ratio Lipase TSH 3rd Generation Urine Color Yellow Urine Clarity Clear Urine pH 6.0 Ur Specific [place] 1.017 Urine Protein 1+ H Urine Glucose (UA) 1+ H Urine Ketones Negative Urine Blood Negative Urine Nitrate Negative Urine Bilirubin Negative Urine Urobilinogen Normal Ur Leukocyte Esterase Neg Urine WBC (Auto) 1 Urine RBC (Auto) 2 Urine Bacteria Rare 08/14/17 08/15/17 08/15/17 20:00 01:43 04:33 WBC RBC Hgb Hct MCV MCH MCHC RDW Plt Count MPV Neut % (Auto) Lymph % (Auto) Reynolds % (Auto) Eos % (Auto) Baso % (Auto) Neut # Lymph # Reynolds # Eos # Baso # PT INR APTT Sodium 102 L* D 101 L* 105 L* Potassium 3.9 3.7 3.7 Chloride 72 L D 74 L 75 L Carbon Dioxide 17 L 20 L 19 L Anion Gap 16 11 14 BUN 9 8 L 7 L Creatinine 0.4 L 0.4 L 0.3 L Est GFR ( Amer) > 60 > 60 > 60 Est GFR (Non-Af Amer) > 60 > 60 > 60 Random Glucose 105 76 76 Serum Osmolality Calcium 7.5 L 7.6 L 7.8 L Phosphorus Magnesium 1.2 L Total Bilirubin 1.6 H AST 54 ALT 52 Alkaline Phosphatase 310 H D Total Protein 6.1 L Albumin 3.7 Globulin 2.4 Albumin/Globulin Ratio 1.6 Lipase 372 H TSH 3rd Generation 3.75 Urine Color Urine Clarity Urine pH Ur Specific [place] Urine Protein Urine Glucose (UA) Urine Ketones Urine Blood Urine Nitrate Urine Bilirubin Urine Urobilinogen Ur Leukocyte Esterase Urine WBC (Auto) Urine RBC (Auto) Urine Bacteria 08/15/17 08/15/17 08/15/17 06:58 06:58 10:49 WBC 3.1 L RBC 2.93 L Hgb 9.5 L Hct 26.2 L MCV 89.2 MCH 32.5 H MCHC 36.4 RDW 13.1 Plt Count 249 MPV 7.6 Neut % (Auto) 67.9 Lymph % (Auto) 26.6 Reynolds % (Auto) 2.0 Eos % (Auto) 2.5 Baso % (Auto) 1.0 Neut # 2.1 Lymph # 0.8 L Reynolds # 0.1 Eos # 0.1 Baso # 0.0 PT INR APTT Sodium 105 L* 108 L* Potassium 3.8 3.9 Chloride 76 L 79 L Carbon Dioxide 20 L 15 L Anion Gap 12 18 BUN 7 L 7 L Creatinine 0.3 L 0.4 L Est GFR ( Amer) > 60 > 60 Est GFR (Non-Af Amer) > 60 > 60 Random Glucose 75 105 Serum Osmolality Calcium 7.5 L 7.7 L Phosphorus 2.7 Magnesium 1.3 L Total Bilirubin 1.8 H AST 52 ALT 47 Alkaline Phosphatase 319 H Total Protein 5.7 L Albumin 3.5 Globulin 2.2 Albumin/Globulin Ratio 1.6 Lipase TSH 3rd Generation Urine Color Urine Clarity Urine pH Ur Specific [place] Urine Protein Urine Glucose (UA) Urine Ketones Urine Blood Urine Nitrate Urine Bilirubin Urine Urobilinogen Ur Leukocyte Esterase Urine WBC (Auto) Urine RBC (Auto) Urine Bacteria 08/15/17 08/15/17 10:49 15:33 WBC RBC Hgb Hct MCV MCH MCHC RDW Plt Count MPV Neut % (Auto) Lymph % (Auto) Reynolds % (Auto) Eos % (Auto) Baso % (Auto) Neut # Lymph # Reynolds # Eos # Baso # PT INR APTT Sodium 111 L* Potassium 4.1 Chloride 81 L Carbon Dioxide 20 L Anion Gap 14 BUN 8 L Creatinine 0.4 L Est GFR ( Amer) > 60 Est GFR (Non-Af Amer) > 60 Random Glucose 94 Serum Osmolality 235 L Calcium 7.8 L Phosphorus Magnesium Total Bilirubin AST ALT Alkaline Phosphatase Total Protein Albumin Globulin Albumin/Globulin Ratio Lipase TSH 3rd Generation Urine Color Urine Clarity Urine pH Ur Specific [place] Urine Protein Urine Glucose (UA) Urine Ketones Urine Blood Urine Nitrate Urine Bilirubin Urine Urobilinogen Ur Leukocyte Esterase Urine WBC (Auto) Urine RBC (Auto) Urine Bacteria
[2017-08-16 06:40] LABS: BASO # 0.1 K/uL (0.0-0.2); BASO % 1.4 % (0.0-2.0); EOS # 0.1 K/uL (0.0-0.7); EOS % 1.4 % (0.0-4.0); LYMPH # 0.8 K/uL (1.0-4.3); LYMPH % 18.7 % (20.0-40.0); MEAN CELL VOLUME 91.2 fL (80.0-94.0); MEAN CORPUSCULAR HEMOGLOBIN 32.1 pg (27.0-31.0); MEAN CORPUSCULAR HGB CONC 35.1 g/dL (33.0-37.0); MEAN PLATELET VOLUME 7.8 fL (7.2-11.7); MONO # 0.1 K/uL (0.0-0.8); NRBC % 0.1 % (0.0-2.0); RED CELL DISTRIBUTION WIDTH 13.4 % (11.5-14.5); WHITE BLOOD COUNT 4.1 K/uL (4.8-10.8)
[2017-08-16 07:01] LABS: ALB/GLOB RATIO 1.1 (1.0-2.1); ALKALINE PHOSPHATASE 381 U/L (38-126); ALT/SGPT 54 U/L (21-72); AST/SGOT 58 U/L (17-59); BILIRUBIN,TOTAL 0.8 mg/dL (0.2-1.3); BLOOD UREA NITROGEN 10 mg/dL (9-20); CALCIUM 8.5 mg/dl (8.6-10.4); CARBON DIOXIDE 19 mmol/L (22-30); CHLORIDE 91 mmol/L (98-107); GFR AFRICAN-AMERICAN > 60; GLUCOSE,RANDOM 101 mg/dL (75-110); MAGNESIUM 2.2 mg/dL (1.6-2.3); PHOSPHOROUS 3.6 mg/dL (2.5-4.5); POTASSIUM 4.1 mmol/L (3.6-5.2); SODIUM 124 mmol/L (132-148); TOTAL PROTEIN 7.8 g/dL (6.3-8.3)
[2017-08-16] MEDS: Enoxaparin 40 mg Syringe SC SCH (10:07)
[2017-08-16] MEDS: Simethicone 80 mg Chewtab PO SCH (10:07)
[2017-08-16] MEDS: Tolvaptan 15 MG TAB PO SCH (10:21)
--- NOTE | 2017-08-16 13:28 | CP.CCUPN ---
<iWly Dickerson - Last Filed: 08/16/17 13:24> CCU Subjective - Physician Review Subjective (Free Text): PGY1 ICU progress note for Dr. Ahmadi Patient seen and examined this morning at bedside. Patient states he is feeling well. Patient reports increased strength. Patient requests to go home. CCU Objective - Vital Signs / Intake & Output Vital Signs (Last 4 hours): Vital Signs Temp Pulse Resp BP Pulse Ox 08/16/17 12:00 97.4 F L 86 18 100 08/16/17 11:38 86 16 114/58 L 08/16/17 11:00 93 H 12 98 08/16/17 10:38 94 H 17 124/74 97 08/16/17 09:39 87 12 113/59 L 100 Intake and Output (Last 8hrs): Intake & Output 08/15/17 08/16/17 08/16/17 22:59 06:59 14:59 Intake Total 540 300 300 Output Total 950 1150 450 Balance -410 -850 -150 Weight 121 lb 3.2 oz Intake: Oral 540 300 300 Output: Urine 950 1150 450 Urine, Voided 950 1150 450 Other: # Voids Urine, Voided 1 - Physical Exam Head: Positive for: Atraumatic, Normocephalic Extroacular Muscles: Positive for: EOMI Conjunctiva: Positive for: Normal Mouth: Positive for: Moist Mucous Membranes Respiratory/Chest: Positive for: Clear to Auscultation, Good Air Exchange. Negative for: Respiratory Distress, Accessory Muscle Use Cardiovascular: Positive for: Regular Rate and Rhythm Abdomen: Negative for: Tenderness, Distention Neurological: Positive for: CN II-XII Intact, Speech Normal, Motor Func Grossly Intact Skin: Positive for: Warm, Dry Psychiatric: Positive for: Alert, Oriented x 3 - Medications Active Medications: Active Medications Generic Name Dose Route Start Last Admin Trade Name Freq PRN Reason Stop Dose Admin Aspirin 81 mg 08/15/17 10:00 08/16/17 10:06 Ecotrin PO 81 mg DAILY AWILDA Administration Clopidogrel Bisulfate 75 mg 08/15/17 10:00 08/16/17 10:08 Plavix PO 75 mg DAILY AWILDA Administration Demeclocycline HCl 300 mg 08/15/17 10:45 08/16/17 10:21 Declomycin PO 300 mg BID AWILDA Administration Docusate Sodium 100 mg 08/15/17 20:45 08/16/17 10:05 Colace PO 100 mg BID AWILDA Administration Enoxaparin Sodium 40 mg 08/15/17 10:00 08/16/17 10:07 Lovenox SC 40 mg DAILY AWILDA Administration Famotidine 20 mg 08/15/17 10:00 08/16/17 10:07 Pepcid PO 20 mg DAILY AWILDA Administration Rosuvastatin Calcium 20 mg 08/15/17 22:00 08/15/17 22:09 Crestor PO 20 mg HS AWILDA Administration Simethicone 80 mg 08/15/17 10:00 08/16/17 10:07 Mylicon Chew Tab PO 80 mg DAILY AWILDA Administration Tolvaptan 30 mg 08/15/17 11:15 08/16/17 10:21 Samsca PO 08/17/17 11:16 30 mg DAILY AWILDA Administration Tramadol HCl 50 mg 08/15/17 16:30 08/16/17 10:08 Ultram PO 50 mg Q6H AWILDA Administration - Patient Studies Lab Studies: Microbiology Studies 08/15/17 Unknown MRSA Culture (Admit) - Final Nose MRSA NOT DETECTED Lab Studies 08/16/17 08/16/17 08/15/17 Range/Units 06:29 06:29 15:33 WBC 4.1 L (4.8-10.8) K/uL RBC 3.62 L (4.40-5.90) Mil/uL Hgb 11.6 L D (12.0-18.0) g/dL Hct 33.0 L (35.0-51.0) % MCV 91.2 D (80.0-94.0) fL MCH 32.1 H (27.0-31.0) pg MCHC 35.1 (33.0-37.0) g/dL RDW 13.4 (11.5-14.5) % Plt Count 316 (130-400) K/uL MPV 7.8 (7.2-11.7) fL Neut % (Auto) 75.5 H (50.0-75.0) % Lymph % (Auto) 18.7 L (20.0-40.0) % Potter % (Auto) 3.0 (0.0-10.0) % Eos % (Auto) 1.4 (0.0-4.0) % Baso % (Auto) 1.4 (0.0-2.0) % Neut # 3.1 (1.8-7.0) K/uL Lymph # 0.8 L (1.0-4.3) K/uL Potter # 0.1 (0.0-0.8) K/uL Eos # 0.1 (0.0-0.7) K/uL Baso # 0.1 (0.0-0.2) K/uL Sodium 124 L 111 L* (132-148) mmol/L Potassium 4.1 4.1 (3.6-5.2) mmol/L Chloride 91 L 81 L (98-107) mmol/L Carbon Dioxide 19 L 20 L (22-30) mmol/L Anion Gap 17 14 (10-20) BUN 10 8 L (9-20) mg/dL Creatinine 0.5 L 0.4 L (0.8-1.5) mg/dL Est GFR ( Amer) > 60 > 60 Est GFR (Non-Af Amer) > 60 > 60 Random Glucose 101 94 (75-110) mg/dL Calcium 8.5 L 7.8 L (8.6-10.4) mg/dl Phosphorus 3.6 (2.5-4.5) mg/dL Magnesium 2.2 (1.6-2.3) mg/dL Total Bilirubin 0.8 (0.2-1.3) mg/dL AST 58 (17-59) U/L ALT 54 (21-72) U/L Alkaline Phosphatase 381 H (38-126) U/L Total Protein 7.8 (6.3-8.3) g/dL Albumin 4.2 (3.5-5.0) g/dL Globulin 3.6 (2.2-3.9) gm/dL Albumin/Globulin Ratio 1.1 (1.0-2.1) Laboratory Results - last 24 hr 08/15/17 08/16/17 08/16/17 15:33 06:29 06:29 WBC 4.1 L RBC 3.62 L Hgb 11.6 L D Hct 33.0 L MCV 91.2 D MCH 32.1 H MCHC 35.1 RDW 13.4 Plt Count 316 MPV 7.8 Neut % (Auto) 75.5 H Lymph % (Auto) 18.7 L Potter % (Auto) 3.0 Eos % (Auto) 1.4 Baso % (Auto) 1.4 Neut # 3.1 Lymph # 0.8 L Potter # 0.1 Eos # 0.1 Baso # 0.1 Sodium 111 L* 124 L Potassium 4.1 4.1 Chloride 81 L 91 L Carbon Dioxide 20 L 19 L Anion Gap 14 17 BUN 8 L 10 Creatinine 0.4 L 0.5 L Est GFR ( Amer) > 60 > 60 Est GFR (Non-Af Amer) > 60 > 60 Random Glucose 94 101 Calcium 7.8 L 8.5 L Phosphorus 3.6 Magnesium 2.2 Total Bilirubin 0.8 AST 58 ALT 54 Alkaline Phosphatase 381 H Total Protein 7.8 Albumin 4.2 Globulin 3.6 Albumin/Globulin Ratio 1.1 Review of Systems - Review of Systems All systems: reviewed and no additional remarkable complaints except (as per HPI ) Critical Care Progress Note - Nutrition Nutrition: Nutrition Category Date Time Status Heart Healthy Diet [DIET] Diets 08/15/17 Lunch Active Assessment/Plan - Assessment and Plan (Free Text) Assessment: 62yo M. 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 patient presents with recurrent severe hyponatremia. Plan: Pulm: small cell lung cancer stage IV being treated with chemotherapy Tramadol 50mg PO q6h Renal: Hyponatremia 2/2 SIADH 2/2 small cell lung cancer Na: 124 Tolvaptan 30mg po daily Demeclocycline 300mg po BID Ma.2 monitor CMP GI: small cell lung ca with mets to liver being treated with chemotherapy Heme: patient hemodynamically stable H/H: Prophylactic Care: ASA 81mg PO daily Plavix 75mg PO daily Lovenox 40mg SC daily Pepcid 20mg PO daily Crestor 20mg PO HS Patient stable for transfer to Med-Surg floor. Case discussed with Dr. Galdino Dickerson PGY1 <Luther Ahmadi - Last Filed: 08/16/17 17:52> CCU Objective - Vital Signs / Intake & Output Vital Signs (Last 4 hours): Vital Signs Temp Pulse Resp BP Pulse Ox 08/16/17 16:00 97.6 F 08/16/17 14:39 87 12 126/63 100 08/16/17 14:00 113 H 18 94 L Intake and Output (Last 8hrs): Intake & Output 08/16/17 08/16/17 08/16/17 06:59 14:59 22:59 Intake Total 300 500 Output Total 1150 1300 Balance -850 -800 Weight 121 lb 3.2 oz Intake: Oral 300 500 Output: Urine 1150 1300 Urine, Voided 1150 1300 Other: # Voids Urine, Voided 1 - Medications Active Medications: Active Medications Generic Name Dose Route Start Last Admin Trade Name Freq PRN Reason Stop Dose Admin Aspirin 81 mg 08/15/17 10:00 08/16/17 10:06 Ecotrin PO 81 mg DAILY AWILDA Administration Clopidogrel Bisulfate 75 mg 08/15/17 10:00 08/16/17 10:08 Plavix PO 75 mg DAILY AWILDA Administration Demeclocycline HCl 300 mg 08/15/17 10:45 08/16/17 10:21 Declomycin PO 300 mg BID AWILDA Administration Docusate Sodium 100 mg 08/15/17 20:45 08/16/17 10:05 Colace PO 100 mg BID AWILDA Administration Enoxaparin Sodium 40 mg 08/15/17 10:00 08/16/17 10:07 Lovenox SC 40 mg DAILY AWILDA Administration Famotidine 20 mg 08/15/17 10:00 08/16/17 10:07 Pepcid PO 20 mg DAILY AWILDA Administration Lactulose 20 gm 08/16/17 18:00 Enulose PO BID AWILDA Rosuvastatin Calcium 20 mg 08/15/17 22:00 08/15/17 22:09 Crestor PO 20 mg HS AWILDA Administration Simethicone 80 mg 08/15/17 10:00 08/16/17 10:07 Mylicon Chew Tab PO 80 mg DAILY AWILDA Administration Tolvaptan 30 mg 08/15/17 11:15 08/16/17 10:21 Samsca PO 08/17/17 11:16 30 mg DAILY AWILDA Administration Tramadol HCl 50 mg 08/15/17 16:30 08/16/17 16:47 Ultram PO 50 mg Q6H AWILDA Administration - Patient Studies Lab Studies: Microbiology Studies 08/15/17 Unknown MRSA Culture (Admit) - Final Nose MRSA NOT DETECTED Lab Studies 08/16/17 08/16/17 Range/Units 06:29 06:29 WBC 4.1 L (4.8-10.8) K/uL RBC 3.62 L (4.40-5.90) Mil/uL Hgb 11.6 L D (12.0-18.0) g/dL Hct 33.0 L (35.0-51.0) % MCV 91.2 D (80.0-94.0) fL MCH 32.1 H (27.0-31.0) pg MCHC 35.1 (33.0-37.0) g/dL RDW 13.4 (11.5-14.5) % Plt Count 316 (130-400) K/uL MPV 7.8 (7.2-11.7) fL Neut % (Auto) 75.5 H (50.0-75.0) % Lymph % (Auto) 18.7 L (20.0-40.0) % Potter % (Auto) 3.0 (0.0-10.0) % Eos % (Auto) 1.4 (0.0-4.0) % Baso % (Auto) 1.4 (0.0-2.0) % Neut # 3.1 (1.8-7.0) K/uL Lymph # 0.8 L (1.0-4.3) K/uL Potter # 0.1 (0.0-0.8) K/uL Eos # 0.1 (0.0-0.7) K/uL Baso # 0.1 (0.0-0.2) K/uL Sodium 124 L (132-148) mmol/L Potassium 4.1 (3.6-5.2) mmol/L Chloride 91 L (98-107) mmol/L Carbon Dioxide 19 L (22-30) mmol/L Anion Gap 17 (10-20) BUN 10 (9-20) mg/dL Creatinine 0.5 L (0.8-1.5) mg/dL Est GFR ( Amer) > 60 Est GFR (Non-Af Amer) > 60 Random Glucose 101 (75-110) mg/dL Calcium 8.5 L (8.6-10.4) mg/dl Phosphorus 3.6 (2.5-4.5) mg/dL Magnesium 2.2 (1.6-2.3) mg/dL Total Bilirubin 0.8 (0.2-1.3) mg/dL AST 58 (17-59) U/L ALT 54 (21-72) U/L Alkaline Phosphatase 381 H (38-126) U/L Total Protein 7.8 (6.3-8.3) g/dL Albumin 4.2 (3.5-5.0) g/dL Globulin 3.6 (2.2-3.9) gm/dL Albumin/Globulin Ratio 1.1 (1.0-2.1) Laboratory Results - last 24 hr 08/16/17 08/16/17 06:29 06:29 WBC 4.1 L RBC 3.62 L Hgb 11.6 L D Hct 33.0 L MCV 91.2 D MCH 32.1 H MCHC 35.1 RDW 13.4 Plt Count 316 MPV 7.8 Neut % (Auto) 75.5 H Lymph % (Auto) 18.7 L Potter % (Auto) 3.0 Eos % (Auto) 1.4 Baso % (Auto) 1.4 Neut # 3.1 Lymph # 0.8 L Potter # 0.1 Eos # 0.1 Baso # 0.1 Sodium 124 L Potassium 4.1 Chloride 91 L Carbon Dioxide 19 L Anion Gap 17 BUN 10 Creatinine 0.5 L Est GFR ( Amer) > 60 Est GFR (Non-Af Amer) > 60 Random Glucose 101 Calcium 8.5 L Phosphorus 3.6 Magnesium 2.2 Total Bilirubin 0.8 AST 58 ALT 54 Alkaline Phosphatase 381 H Total Protein 7.8 Albumin 4.2 Globulin 3.6 Albumin/Globulin Ratio 1.1 Critical Care Progress Note - Nutrition Nutrition: Nutrition Category Date Time Status Heart Healthy Diet [DIET] Diets 08/15/17 Lunch Active Attending/Attestation - Attestation I have personally seen and examined this patient.: Yes I have fully participated in the care of the patient.: Yes I have reviewed all pertinent clinical information: Yes Notes (Text): 08/16/17 17:52 pt seen and examined Continue [facility] Transfer patient to floor
--- NOTE | 2017-08-16 19:06 | CP.PCM.PN ---
Subjective - Date & Time of Evaluation Date of Evaluation: 08/16/17 Time of Evaluation: 14:00 - Subjective Subjective: clinically same Objective - Vital Signs/Intake and Output Vital Signs (last 24 hours): Temp Pulse Resp BP Pulse Ox 97.6 F 87 12 126/63 100 08/16/17 16:00 08/16/17 14:39 08/16/17 14:39 08/16/17 14:39 08/16/17 14:39 Intake and Output: 08/16/17 08/17/17 18:59 06:59 Intake Total 700 Output Total 1825 Balance -1125 - Medications Medications: Current Medications Aspirin (Ecotrin) 81 mg PO DAILY [facility] Last Admin: 08/16/17 10:06 Dose: 81 mg Clopidogrel Bisulfate (Plavix) 75 mg PO DAILY [facility] Last Admin: 08/16/17 10:08 Dose: 75 mg Demeclocycline HCl (Declomycin) 300 mg PO BID [facility] Last Admin: 08/16/17 17:53 Dose: 300 mg Docusate Sodium (Colace) 100 mg PO BID [facility] Last Admin: 08/16/17 17:52 Dose: 100 mg Enoxaparin Sodium (Lovenox) 40 mg SC DAILY [facility] Last Admin: 08/16/17 10:07 Dose: 40 mg Famotidine (Pepcid) 20 mg PO DAILY [facility] Last Admin: 08/16/17 10:07 Dose: 20 mg Lactulose (Enulose) 20 gm PO BID [facility] Last Admin: 08/16/17 17:52 Dose: 20 gm Rosuvastatin Calcium (Crestor) 20 mg PO HS [facility] Last Admin: 08/15/17 22:09 Dose: 20 mg Simethicone (Mylicon Chew Tab) 80 mg PO DAILY [facility] Last Admin: 08/16/17 10:07 Dose: 80 mg Tolvaptan (Samsca) 30 mg PO DAILY [facility] Stop: 08/17/17 11:16 Last Admin: 08/16/17 10:21 Dose: 30 mg Tramadol HCl (Ultram) 50 mg PO Q6H [facility] Last Admin: 08/16/17 16:47 Dose: 50 mg - Labs Labs: 08/16/17 06:29 08/16/17 06:29 PT 13.9 SECONDS (9.7-12.2) H 08/14/17 20:00 INR 1.2 08/14/17 20:00 APTT 30 SECONDS (21-34) 08/14/17 20:00 - Constitutional Appears: Well - Head Exam Head Exam: ATRAUMATIC, NORMAL INSPECTION, NORMOCEPHALIC - Eye Exam Eye Exam: EOMI, Normal appearance, PERRL Pupil Exam: NORMAL ACCOMODATION, PERRL - ENT Exam ENT Exam: Mucous Membranes Moist, Normal Exam - Neck Exam Neck Exam: Full ROM, Normal Inspection. absent: Lymphadenopathy - Respiratory Exam Respiratory Exam: Clear to Ausculation Bilateral, NORMAL BREATHING PATTERN - GI/Abdominal Exam GI & Abdominal Exam: Soft, Normal Bowel Sounds. absent: Tenderness - Rectal Exam Rectal Exam: Deferred - Extremities Exam Extremities Exam: Full ROM, Normal Capillary Refill, Normal Inspection. absent : Joint Swelling, Pedal Edema - Back Exam Back Exam: NORMAL INSPECTION Assessment and Plan (1) Abdominal pain Status: Acute (2) Electrolyte imbalance Status: Acute (3) Hyponatremia Status: Acute (4) Anemia Status: Acute (5) Hepatomegaly Status: Acute (6) Hiccups Status: Acute (7) Intractable hiccups Status: Acute (8) Leukopenia Status: Acute (9) Metastatic cancer to liver Status: Acute (10) Small cell lung cancer Status: Acute (11) Thrombocytopenia Status: Acute - Assessment and Plan (Free Text) Plan: Patient examined. Patient better. Continue demeclocycline, aspirin and clopidogrel. Continue tolvaptan. Continue supportive care.
[2017-08-17] MEDS: Enoxaparin 40 mg Syringe SC SCH (09:19)
[2017-08-17] MEDS: Simethicone 80 mg Chewtab PO SCH (09:20)
[2017-08-17] MEDS: Tolvaptan 15 MG TAB PO SCH (09:22)
--- NOTE | 2017-08-17 19:03 | CP.PCM.PN ---
Subjective - Date & Time of Evaluation Date of Evaluation: 08/17/17 Time of Evaluation: 13:40 - Subjective Subjective: clinically same Objective - Vital Signs/Intake and Output Vital Signs (last 24 hours): Temp Pulse Resp BP Pulse Ox 98.1 F 90 18 116/70 100 08/17/17 16:00 08/17/17 18:00 08/17/17 04:00 08/17/17 04:00 08/17/17 04:00 Intake and Output: 08/17/17 08/18/17 18:59 06:59 Intake Total 700 Output Total 1150 Balance -450 - Medications Medications: Current Medications Aspirin (Ecotrin) 81 mg PO DAILY [facility] Last Admin: 08/17/17 09:19 Dose: 81 mg Clopidogrel Bisulfate (Plavix) 75 mg PO DAILY [facility] Last Admin: 08/17/17 09:20 Dose: 75 mg Demeclocycline HCl (Declomycin) 300 mg PO BID [facility] Last Admin: 08/17/17 17:38 Dose: 300 mg Docusate Sodium (Colace) 100 mg PO BID [facility] Last Admin: 08/17/17 17:37 Dose: 100 mg Enoxaparin Sodium (Lovenox) 40 mg SC DAILY [facility] Last Admin: 08/17/17 09:19 Dose: Not Given Famotidine (Pepcid) 20 mg PO DAILY [facility] Last Admin: 08/17/17 09:20 Dose: 20 mg Lactulose (Enulose) 20 gm PO BID [facility] Last Admin: 08/17/17 17:39 Dose: 20 gm Rosuvastatin Calcium (Crestor) 20 mg PO HS [facility] Last Admin: 08/16/17 22:18 Dose: 20 mg Simethicone (Mylicon Chew Tab) 80 mg PO DAILY [facility] Last Admin: 08/17/17 09:20 Dose: 80 mg Tramadol HCl (Ultram) 50 mg PO Q6H [facility] Last Admin: 08/17/17 17:30 Dose: Not Given - Labs Labs: 08/16/17 06:29 08/16/17 06:29 PT 13.9 SECONDS (9.7-12.2) H 08/14/17 20:00 INR 1.2 08/14/17 20:00 APTT 30 SECONDS (21-34) 08/14/17 20:00 - Constitutional Appears: Well - Head Exam Head Exam: ATRAUMATIC, NORMAL INSPECTION, NORMOCEPHALIC - Eye Exam Eye Exam: EOMI, Normal appearance, PERRL Pupil Exam: NORMAL ACCOMODATION, PERRL - ENT Exam ENT Exam: Mucous Membranes Moist, Normal Exam - Neck Exam Neck Exam: Full ROM, Normal Inspection. absent: Lymphadenopathy - Respiratory Exam Respiratory Exam: Clear to Ausculation Bilateral, NORMAL BREATHING PATTERN - Cardiovascular Exam Cardiovascular Exam: REGULAR RHYTHM, +S1, +S2. absent: Murmur - GI/Abdominal Exam GI & Abdominal Exam: Soft, Normal Bowel Sounds. absent: Tenderness - Rectal Exam Rectal Exam: Deferred - Extremities Exam Extremities Exam: Full ROM, Normal Capillary Refill, Normal Inspection. absent : Joint Swelling, Pedal Edema - Back Exam Back Exam: NORMAL INSPECTION Assessment and Plan (1) Abdominal pain Status: Acute (2) Electrolyte imbalance Status: Acute (3) Hyponatremia Status: Acute (4) Anemia Status: Acute (5) Hepatomegaly Status: Acute (6) Hiccups Status: Acute (7) Intractable hiccups Status: Acute (8) Leukopenia Status: Acute (9) Metastatic cancer to liver Status: Acute (10) Small cell lung cancer Status: Acute (11) Thrombocytopenia Status: Acute - Assessment and Plan (Free Text) Plan: Patient examined. Patient better. Continue aspirin and clopidogrel. Continue lactulose. Continue supportive care.
[2017-08-18 02:25] VITALS: RESP 20
[2017-08-18 06:40] VITALS: O2SAT 98
[2017-08-18 08:21] VITALS: BP 136/75; PULSE 82
[2017-08-18] MEDS: Enoxaparin 40 mg Syringe SC SCH (10:43)
[2017-08-18] MEDS: Simethicone 80 mg Chewtab PO SCH (10:49)
[2017-08-18 12:35] LABS: WHITE BLOOD COUNT 4.3 K/uL (4.8-10.8)
[2017-08-18 12:50] LABS: BLOOD UREA NITROGEN 14 mg/dL (9-20); CARBON DIOXIDE 27 mmol/L (22-30); CHLORIDE 94 mmol/L (98-107); GFR AFRICAN-AMERICAN > 60; GLUCOSE,RANDOM 90 mg/dL (75-110); POTASSIUM 4.2 mmol/L (3.6-5.2); SODIUM 134 mmol/L (132-148)
[2017-08-18 13:23] LABS: HEMATOCRIT 35.8 % (35.0-51.0); MEAN CELL VOLUME 93.4 fL (80.0-94.0); MEAN CORPUSCULAR HEMOGLOBIN 31.6 pg (27.0-31.0); MEAN CORPUSCULAR HGB CONC 33.9 g/dL (33.0-37.0); MEAN PLATELET VOLUME 7.8 fL (7.2-11.7); RED CELL DISTRIBUTION WIDTH 14.2 % (11.5-14.5)
[2017-08-18 14:42] LABS: EOS # 0.2 K/uL (0.0-0.7); LYMPH # 1.7 K/uL (1.0-4.3); MONO # 0.6 K/uL (0.0-0.8)
--- NOTE | 2017-08-18 16:29 | CP.PCM.PN ---
Subjective - Date & Time of Evaluation Date of Evaluation: 08/18/17 Time of Evaluation: 11:00 - Subjective Subjective: Awake, alert, ambulatory, no distress noted. Objective - Vital Signs/Intake and Output Vital Signs (last 24 hours): Temp Pulse Resp BP Pulse Ox 98.0 F 82 20 136/75 98 08/18/17 08:19 08/18/17 15:30 08/18/17 08:19 08/18/17 15:30 08/18/17 15:30 Intake and Output: 08/18/17 08/18/17 06:59 18:59 Intake Total 400 360 Balance 400 360 - Medications Medications: Current Medications Aspirin (Ecotrin) 81 mg PO DAILY [facility] Last Admin: 08/18/17 10:44 Dose: 81 mg Clopidogrel Bisulfate (Plavix) 75 mg PO DAILY [facility] Last Admin: 08/18/17 10:43 Dose: 75 mg Demeclocycline HCl (Declomycin) 300 mg PO BID [facility] Last Admin: 08/18/17 10:55 Dose: 300 mg Docusate Sodium (Colace) 100 mg PO BID [facility] Last Admin: 08/18/17 10:43 Dose: 100 mg Enoxaparin Sodium (Lovenox) 40 mg SC DAILY [facility] Last Admin: 08/18/17 10:43 Dose: 40 mg Famotidine (Pepcid) 20 mg PO DAILY [facility] Last Admin: 08/18/17 10:43 Dose: 20 mg Lactulose (Enulose) 20 gm PO BID [facility] Last Admin: 08/18/17 10:43 Dose: 20 gm Rosuvastatin Calcium (Crestor) 20 mg PO HS [facility] Last Admin: 08/17/17 21:57 Dose: 20 mg Simethicone (Mylicon Chew Tab) 80 mg PO DAILY [facility] Last Admin: 08/18/17 10:49 Dose: 80 mg Tramadol HCl (Ultram) 50 mg PO Q6H [facility] Last Admin: 08/18/17 10:49 Dose: 50 mg - Labs Labs: 08/18/17 12:25 08/18/17 12:25 PT 13.9 SECONDS (9.7-12.2) H 08/14/17 20:00 INR 1.2 08/14/17 20:00 APTT 30 SECONDS (21-34) 08/14/17 20:00 Assessment and Plan - Assessment and Plan (Free Text) Assessment: Patient admitted with sodium level of 105 in the ICU, seen and examined. Alert, walking in the hallway, sodium is 134 today. No distress noted. Discussed with DR Debo Mccartney, plan to discharge home today, family will pick him up later. To follow up with PMD in 1 week.
[2017-08-18 17:09] VITALS: TEMP 97.7
--- NOTE | 2017-08-22 23:54 | CARD ---
APPROVED REPORT EKG Measurement Heart [id number] <Conclusion> Sinus rhythm with 1st degree AV block Incomplete right bundle branch block Prolonged QT Abnormal ECG
== END 2017-08-18 17:57 | disposition home or self-care (01) | DRG 644 ==
LOC: C.ER 17:00 → C.9E 20:57 → C.9I 23:36 → C.3T 08-17 19:02
PROVIDERS: ADMIT Internal Medicine Nephrology; ATTEND Internal Medicine Nephrology
DX: E22.2 Syndrome of inappropriate secretion of antidiuretic hormone (principal); C79.51 Secondary malignant neoplasm of bone; C78.7 Secondary malignant neoplasm of liver and intrahepatic bile duct; D69.6 Thrombocytopenia, unspecified; R16.0 Hepatomegaly, not elsewhere classified; C34.90 Malignant neoplasm of unspecified part of unspecified bronchus or lung; D64.9 Anemia, unspecified; E78.00 Pure hypercholesterolemia, unspecified; M16.10 Unilateral primary osteoarthritis, unspecified hip; M47.9 Spondylosis, unspecified; I10 Essential (primary) hypertension; Z95.1 Presence of aortocoronary bypass graft; Z87.891 Personal history of nicotine dependence; K21.9 Gastro-esophageal reflux disease without esophagitis; I25.10 Atherosclerotic heart disease of native coronary artery without angina pectoris; R06.6 Hiccough

== ENCOUNTER 2017-08-25 19:23 | Inpatient (IN) | payer MEDICARE, OTHER ==
[2017-08-25 19:23] VITALS: BMI 25.9
--- NOTE | 2017-08-25 19:49 | C.PDOC ---
History Of Present Illness 62 year old male with a Hx of small lung cell ca and hyponatremia presents to the ER with daughter for worsening weakness and confusion since July. Patient was seen by PMD on Monday and blood work done; lab called back today with the results which showed low sodium levels and advised patient to go to the ER for evaluation. Patient lives with his daughter who states patient is normally ambulatory with a walker but today was not walking; she also found the patient urinating in a trash can today. Patient denies any pain at this time. Time Seen by Provider: 08/25/17 19:46 Chief Complaint (Nursing): Weakness/Neurological Deficit History Per: Patient History/Exam Limitations: no limitations Onset/Duration Of Symptoms: Days Current Symptoms Are (Timing): Still Present Seizure Or Post-ictal Symptoms: None Fall Associated With With Symptoms: No Recent travel outside of the [place]: No - Symptoms Of CVA Associated Symptoms: New Confusion. denies: Impaired Speech, Seizure Activity, New Vision Deficit(Left), New Vision Deficit(Right), Decreased Ability To Walk Past Medical History Reviewed: Historical Data, Nursing Documentation, Vital Signs Vital Signs: Last Vital Signs Temp 97.9 F 08/25/17 22:59 Pulse 78 08/25/17 22:59 Resp 16 08/25/17 22:59 BP 130/64 08/25/17 22:59 Pulse Ox 98 08/25/17 23:06 - Medical History PMH: Arthritis (HX OF B/L HIP PAIN L>R), Gastritis, HTN, Hypercholesterolemia, Hyperlipidemia Surgical History: CABG - [facility] EXCISION OF LIVER, PERCUTANEOUS APPROACH, DIAGNOSTIC (07/01/17) Family History: States: Unknown Family Hx - Social History Hx Alcohol Use: No Hx Substance Use: No - Immunization History Hx Tetanus Toxoid Vaccination: No Hx Influenza Vaccination: No Hx Pneumococcal Vaccination: No Review Of Systems Constitutional: Negative for: Fever, Chills Cardiovascular: Negative for: Chest Pain, Palpitations Respiratory: Negative for: Shortness of Breath Gastrointestinal: Negative for: Nausea, Vomiting, Abdominal Pain Neurological: Positive for: Weakness, Confusion Physical Exam - Physical Exam Appears: Confused, Chronically Ill Skin: Warm, Dry, Pale, Other (Intact) Head: Atraumatic, Normacephalic Eye(s): bilateral: PERRL, EOMI, Conjunctiva Pale Oral Mucosa: Moist Throat: Normal, No Erythema Neck: Normal, Supple Chest: Symmetrical, No Tenderness Cardiovascular: Rhythm Regular Respiratory: Normal Breath Sounds, No Rales, No Rhonchi, No Wheezing Gastrointestinal/Abdominal: Bowel Sounds (Active), Soft, No Tenderness, Distention Back: No CVA Tenderness Extremity: Pedal Edema (Nonpitting) Neurological/Psych: Other (No focl deficits) ED Course And Treatment - Laboratory Results Result Diagrams: 08/25/17 20:06 08/25/17 20:06 ECG: Interpreted By Me, Viewed By Me ECG Rhythm: Sinus Rhythm, R BBB (Incomplete) Interpretation Of ECG: Qs at V1-V3 indicative of old anterior septal wall infarct. No acute ST/T wave changes or ectope. O2 Sat by Pulse Oximetry: 98 (Room air) Pulse Ox Interpretation: Normal - CT Scan/US CT Head Other Rad Studies (CT/US): Read By Radiologist, Radiology Report Reviewed CT/US Interpretation: EXAM: CT Head Without Intravenous Contrast. CLINICAL HISTORY: 62 years old, male; Signs and symptoms; Altered mental status/memory loss; Confusion or. disorientation; Additional info: AMS. TECHNIQUE: Axial computed tomography images of the head/brain without intravenous contrast. All CT scans at. this facility use one or more dose reduction techniques, viz.: automated exposure control; ma/kV. adjustment per patient size (including targeted exams where dose is matched to indication; i.e. head);. or iterative reconstruction technique. Coronal and sagittal reformatted images were created and reviewed. COMPARISON: CT - HEAD W/O CONTRAST 2017-07-26 08:39. FINDINGS: Brain: Mild atrophy. No intracranial hemorrhage. No mass. Few scattered foci of decreased. attenuation within periventricular/subcortical white matter. No definite edema. Ventricles: No hydrocephalus. Bones/joints: No acute fracture. Small lucent lesion within calvarium, nonspecific but stable. Soft tissues: Unremarkable. Sinuses: Scattered minimal mucosal thickening. Mastoid air cells: Opacification of mastoids, stable. Orbits: Unremarkable as visualized. IMPRESSION: 1. Nonspecific white matter changes. Acute infarction may be CT occult within first 24 hours. If a. focal deficit persists, consider followup CT or MRI for further evaluation. 2. Incidental/non-acute findings are described above. Medical Decision Making Medical Decision Making: CT head, blood work, EKG, urinalysis, and CXR ordered. IV fluids administered. 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 I have reviewed the chart and agree that the record accurately reflects my personal performance of the history, physical exam, medical decision making, and the department course for this patient. I have also personally directed, reviewed, and agree with the discharge instructions and disposition.
[2017-08-25 20:12] LABS: BASO % 1.3 % (0.0-2.0); EOS # 0.2 K/uL (0.0-0.7); EOS % 5.4 % (0.0-4.0); HEMATOCRIT 27.1 % (35.0-51.0); LYMPH # 1.4 K/uL (1.0-4.3); MEAN CELL VOLUME 91.5 fL (80.0-94.0); MEAN CORPUSCULAR HEMOGLOBIN 32.8 pg (27.0-31.0); MEAN CORPUSCULAR HGB CONC 35.9 g/dL (33.0-37.0); MEAN PLATELET VOLUME 7.8 fL (7.2-11.7); MONO # 0.5 K/uL (0.0-0.8); MONO % 14.7 % (0.0-10.0); NRBC % 0.1 % (0.0-2.0); RED CELL DISTRIBUTION WIDTH 14.6 % (11.5-14.5); WHITE BLOOD COUNT 3.3 K/uL (4.8-10.8)
[2017-08-25 20:29] LABS: ALB/GLOB RATIO 1.1 (1.0-2.1); ALKALINE PHOSPHATASE 271 U/L (38-126); ALT/SGPT 54 U/L (21-72); AST/SGOT 65 U/L (17-59); BLOOD UREA NITROGEN 6 mg/dL (9-20); CALCIUM 7.8 mg/dl (8.6-10.4); CARBON DIOXIDE 23 mmol/L (22-30); CHLORIDE 77 mmol/L (98-107); GFR AFRICAN-AMERICAN > 60; GLUCOSE,RANDOM 94 mg/dL (75-110); MAGNESIUM 1.1 mg/dL (1.6-2.3); PHOSPHOROUS 3.1 mg/dL (2.5-4.5); POTASSIUM 4.2 mmol/L (3.6-5.2); TOTAL PROTEIN 7.1 g/dL (6.3-8.3)
[2017-08-25 20:34] LABS: SODIUM 106 mmol/L (132-148)
[2017-08-25] MEDS ORDERED: Sodium Chloride 3% 500 ML IV ONE (20:35)
--- NOTE | 2017-08-25 20:47 | CT ---
EXAM: CT Head Without Intravenous Contrast CLINICAL HISTORY: 62 years old, male; Signs and symptoms; Altered mental status/memory loss; Confusion or disorientation; Additional info: AMS TECHNIQUE: Axial computed tomography images of the head/brain without intravenous contrast. All CT scans at this facility use one or more dose reduction techniques, viz.: automated exposure control; ma/kV adjustment per patient size (including targeted exams where dose is matched to indication; i.e. head); or iterative reconstruction technique. Coronal and sagittal reformatted images were created and reviewed. COMPARISON: CT - HEAD W/O CONTRAST 2017-07-26 08:39 FINDINGS: Brain: Mild atrophy. No intracranial hemorrhage. No mass. Few scattered foci of decreased attenuation within periventricular/subcortical white matter. No definite edema. Ventricles: No hydrocephalus. Bones/joints: No acute fracture. Small lucent lesion within calvarium, nonspecific but stable. Soft tissues: Unremarkable. Sinuses: Scattered minimal mucosal thickening. Mastoid air cells: Opacification of mastoids, stable. Orbits: Unremarkable as visualized. IMPRESSION: 1. Nonspecific white matter changes. Acute infarction may be CT occult within first 24 hours. If a focal deficit persists, consider followup CT or MRI for further evaluation. 2. Incidental/non-acute findings are described above.
[2017-08-25] MEDS ORDERED: Sodium Chloride 3% 500 ML ONE (20:52)
[2017-08-25 22:19] LABS: RBC URINE 5 /hpf (0-3); URINE BILIRUBIN NEGATIVE (NEGATIVE); URINE BLOOD NEGATIVE (NEGATIVE); URINE COLOR Yellow (YELLOW); URINE GLUCOSE (UA) NORMAL (Normal); URINE KETONE NEGATIVE (NEGATIVE); URINE LEUKOCYTE ESTERASE NEG Leu/uL (Negative); URINE PROTEIN NEGATIVE (NEGATIVE); URINE UROBILINOGEN NORMAL mg/dL (0.2-1.0); WBC URINE 1 /hpf (0-5)
--- NOTE | 2017-08-25 22:34 | CP.PCM.HP ---
Past Patient History - Infectious Disease Hx of Infectious Diseases: None - Past Medical History & Family History Past Medical History?: Yes - Past Social History Smoking Status: Former Smoker - CARDIAC Hx Hypercholesterolemia: Yes Hx Hypertension: Yes - PULMONARY Hx Respiratory Disorders: No - NEUROLOGICAL Hx Neurological Disorder: No Hx Paralysis: No - HEENT Hx HEENT Problems: No - RENAL Hx Chronic Kidney Disease: No - ENDOCRINE/METABOLIC Hx Endocrine Disorders: No - HEMATOLOGICAL/ONCOLOGICAL Hx Blood Disorders: Yes Hx Chemotherapy: Yes (mets, liver, pancreas, bones (Patient unaware of dx)) - INTEGUMENTARY Hx Dermatological Problems: No - MUSCULOSKELETAL/RHEUMATOLOGICAL Hx Arthritis: Yes (HX OF B/L HIP PAIN L>R) - GASTROINTESTINAL Hx Gastritis: Yes - GENITOURINARY/GYNECOLOGICAL Hx Genitourinary Disorders: No - PSYCHIATRIC Hx Substance Use: No - SURGICAL HISTORY Hx Coronary Artery Bypass Graft: Yes - ANESTHESIA Hx Anesthesia: Yes Hx Anesthesia Reactions: No Hx Malignant Hyperthermia: No Meds Allergies/Adverse Reactions: Allergies Allergy/AdvReac Type Severity Reaction Status Date / Time No Known Allergies Allergy Verified 08/25/17 19:35 Results - Vital Signs Recent Vital Signs: Last Vital Signs Temp 97.6 F 08/25/17 19:32 Pulse 72 08/25/17 22:21 Resp 16 08/25/17 22:21 BP 125/59 L 08/25/17 22:21 Pulse Ox 98 08/25/17 22:21 - Labs Result Diagrams: 08/25/17 20:06 08/25/17 20:06 Labs: Laboratory Results - last 24 hr 08/25/17 08/25/17 08/25/17 20:06 20:06 20:06 WBC 3.3 L RBC 2.97 L Hgb 9.7 L D Hct 27.1 L MCV 91.5 MCH 32.8 H MCHC 35.9 RDW 14.6 H Plt Count 157 D MPV 7.8 Neut % (Auto) 36.6 L Lymph % (Auto) 42.0 H Chaves % (Auto) 14.7 H Eos % (Auto) 5.4 H Baso % (Auto) 1.3 Neut # 1.2 L Lymph # 1.4 Chaves # 0.5 Eos # 0.2 Baso # 0.0 Sodium 106 L* D Potassium 4.2 Chloride 77 L Carbon Dioxide 23 Anion Gap 10 BUN 6 L Creatinine 0.4 L Est GFR ( Amer) > 60 Est GFR (Non-Af Amer) > 60 POC Glucose (mg/dL) Random Glucose 94 Serum Osmolality Calcium 7.8 L Phosphorus 3.1 Magnesium 1.1 L Total Bilirubin 1.0 AST 65 H ALT 54 Alkaline Phosphatase 271 H D Ammonia 29 Total Creatine Kinase 36 L CK-MB (Mass) 0.74 Troponin I < 0.0120 Total Protein 7.1 Albumin 3.6 Globulin 3.4 Albumin/Globulin Ratio 1.1 Urine Color Urine Clarity Urine pH Ur Specific [place] Urine Protein Urine Glucose (UA) Urine Ketones Urine Blood Urine Nitrate Urine Bilirubin Urine Urobilinogen Ur Leukocyte Esterase Urine WBC (Auto) Urine RBC (Auto) Urine Osmolality Ur Random Sodium 08/25/17 08/25/17 08/25/17 20:18 20:35 21:53 WBC RBC Hgb Hct MCV MCH MCHC RDW Plt Count MPV Neut % (Auto) Lymph % (Auto) Chaves % (Auto) Eos % (Auto) Baso % (Auto) Neut # Lymph # Chaves # Eos # Baso # Sodium Potassium Chloride Carbon Dioxide Anion Gap BUN Creatinine Est GFR ( Amer) Est GFR (Non-Af Amer) POC Glucose (mg/dL) 88 Random Glucose Serum Osmolality 424 H Calcium Phosphorus Magnesium Total Bilirubin AST ALT Alkaline Phosphatase Ammonia Total Creatine Kinase CK-MB (Mass) Troponin I Total Protein Albumin Globulin Albumin/Globulin Ratio Urine Color Yellow Urine Clarity Clear Urine pH 7.0 Ur Specific [place] 1.015 Urine Protein Negative Urine Glucose (UA) Normal Urine Ketones Negative Urine Blood Negative Urine Nitrate Negative Urine Bilirubin Negative Urine Urobilinogen Normal Ur Leukocyte Esterase Neg Urine WBC (Auto) 1 Urine RBC (Auto) 5 H Urine Osmolality Ur Random Sodium 08/25/17 21:53 WBC RBC Hgb Hct MCV MCH MCHC RDW Plt Count MPV Neut % (Auto) Lymph % (Auto) Chaves % (Auto) Eos % (Auto) Baso % (Auto) Neut # Lymph # Chaves # Eos # Baso # Sodium Potassium Chloride Carbon Dioxide Anion Gap BUN Creatinine Est GFR ( Amer) Est GFR (Non-Af Amer) POC Glucose (mg/dL) Random Glucose Serum Osmolality Calcium Phosphorus Magnesium Total Bilirubin AST ALT Alkaline Phosphatase Ammonia Total Creatine Kinase CK-MB (Mass) Troponin I Total Protein Albumin Globulin Albumin/Globulin Ratio Urine Color Urine Clarity Urine pH Ur Specific [place] Urine Protein Urine Glucose (UA) Urine Ketones Urine Blood Urine Nitrate Urine Bilirubin Urine Urobilinogen Ur Leukocyte Esterase Urine WBC (Auto) Urine RBC (Auto) Urine Osmolality 571 Ur Random Sodium 153
[2017-08-26 01:46] LABS: BLOOD UREA NITROGEN 5 mg/dL (9-20); CALCIUM 6.1 mg/dl (8.6-10.4); CARBON DIOXIDE 21 mmol/L (22-30); CHLORIDE 134 mmol/L (98-107); GFR AFRICAN-AMERICAN > 60; GLUCOSE,RANDOM 84 mg/dL (75-110); POTASSIUM 3.1 mmol/L (3.6-5.2); SODIUM 159 mmol/L (132-148); URIC ACID 1.3 mg/dL (3.5-8.5)
[2017-08-26 05:20] LABS: BASO % 1.3 % (0.0-2.0); EOS # 0.2 K/uL (0.0-0.7); EOS % 5.7 % (0.0-4.0); HEMATOCRIT 27.6 % (35.0-51.0); LYMPH # 1.5 K/uL (1.0-4.3); LYMPH % 44.4 % (20.0-40.0); MEAN CELL VOLUME 92.4 fL (80.0-94.0); MEAN CORPUSCULAR HGB CONC 35.7 g/dL (33.0-37.0); MEAN PLATELET VOLUME 7.8 fL (7.2-11.7); MONO # 0.5 K/uL (0.0-0.8); MONO % 13.8 % (0.0-10.0); NRBC % 0.1 % (0.0-2.0); RED CELL DISTRIBUTION WIDTH 14.8 % (11.5-14.5); WHITE BLOOD COUNT 3.5 K/uL (4.8-10.8)
[2017-08-26 05:56] LABS: GLUCOSE,RANDOM 88 mg/dL (75-110)
[2017-08-26 05:57] LABS: CHLORIDE 78 mmol/L (98-107); POTASSIUM 4.1 mmol/L (3.6-5.2); TOTAL PROTEIN 5.7 g/dL (6.3-8.3)
[2017-08-26 05:58] LABS: BLOOD UREA NITROGEN 7 mg/dL (9-20); CALCIUM 7.8 mg/dl (8.6-10.4); CARBON DIOXIDE 20 mmol/L (22-30); GFR AFRICAN-AMERICAN > 60; PHOSPHOROUS 3.1 mg/dL (2.5-4.5)
[2017-08-26 05:59] LABS: ALB/GLOB RATIO 1.6 (1.0-2.1); MAGNESIUM 1.1 mg/dL (1.6-2.3)
[2017-08-26 06:00] LABS: ALKALINE PHOSPHATASE 278 U/L (38-126); ALT/SGPT 52 U/L (21-72); AST/SGOT 62 U/L (17-59)
[2017-08-26 06:03] LABS: SODIUM 108 mmol/L (132-148)
--- NOTE | 2017-08-26 07:13 | CP.PCM.CON ---
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 Patient was recently discharged form the hospital with admission for hyponatremia, he was on demecocycline 150mg daily, has been taking chlorpramazine fro hiccups. Patient was brought to the hospital by the daughter being confused at home, was urinating in the garbage can, when asked why he would not know. When asked to come to the hospital he had been talking about berries. Patient was quite in ER, easily arousable, Maldivian speaking, daughter helped in the translation. He was in no complains and denied any pain. PMH as above Allergies NKDA Social history lives with his daughter, smokes intermittently, daughter denied alcohol, as per the daughter patient is not aware of the diagnosis of the cancer , but being told getting treatment for tumor when goes for the chemo Family history not contributory Meds reviewed, ASA, plavix, chlorpromazine, metochlorpramide Review of Systems - Review of Systems All systems: reviewed and no additional remarkable complaints except (HPI) Past Patient History - Infectious Disease Hx of Infectious Diseases: None - Past Medical History & Family History Past Medical History?: Yes - Past Social History Smoking Status: Light Smoker < 10 Cigarettes Daily Alcohol: None Home Situation {Lives}: With Family Domestic Violence: Negative - CARDIAC Hx Cardiac Disorders: Yes Hx Hypercholesterolemia: Yes Hx Hypertension: Yes - PULMONARY Hx Respiratory Disorders: No - NEUROLOGICAL Hx Neurological Disorder: No Hx Paralysis: No - HEENT Hx HEENT Problems: No - RENAL Hx Chronic Kidney Disease: No - ENDOCRINE/METABOLIC Hx Endocrine Disorders: No - HEMATOLOGICAL/ONCOLOGICAL Hx Blood Disorders: Yes Hx Chemotherapy: Yes (mets, liver, pancreas, bones (Patient unaware of dx)) - INTEGUMENTARY Hx Dermatological Problems: No - MUSCULOSKELETAL/RHEUMATOLOGICAL Hx Musculoskeletal Disorders: Yes Hx Arthritis: Yes (HX OF B/L HIP PAIN L>R) Hx Falls: No - GASTROINTESTINAL Hx Gastrointestinal Disorders: Yes Hx Gastritis: Yes - GENITOURINARY/GYNECOLOGICAL Hx Genitourinary Disorders: No - PSYCHIATRIC Hx Substance Use: No - SURGICAL HISTORY Hx Surgeries: Yes Hx Coronary Artery Bypass Graft: Yes - ANESTHESIA Hx Anesthesia: Yes Hx Anesthesia Reactions: No Hx Malignant Hyperthermia: No Meds Allergies/Adverse Reactions: Allergies Allergy/AdvReac Type Severity Reaction Status Date / Time No Known Allergies Allergy Verified 08/25/17 19:35 - Medications Medications: Current Medications Aspirin (Ecotrin) 81 mg PO DAILY [facility] Clopidogrel Bisulfate (Plavix) 75 mg PO DAILY [facility] Demeclocycline HCl (Declomycin) 300 mg PO BID [facility] Famotidine (Pepcid) 20 mg PO DAILY [facility] Heparin Sodium (Porcine) (Heparin) 5,000 units SC Q12 [facility] Sodium Chloride (Hypertonic Saline 3%) 500 mls @ 20 mls/hr IV .Q24H ONE Stop: 08/26/17 20:34 Last Admin: 08/25/17 21:00 Dose: 20 mls/hr Metoclopramide HCl (Reglan) 5 mg PO BID [facility] Rosuvastatin Calcium (Crestor) 20 mg PO HS [facility] Tolvaptan (Samsca) 15 mg PO DAILY [facility] Stop: 08/27/17 22:33 Physical Exam - Additional Findings Additional findings: * HEENT LILIANA * Neck supple * Chest Clear * CVS Regular, no gallop or rub * PA soft, nt bs present * Ext no edema, skin turgor lower side * [employer] Awake not alert, moving all ext Results - Vital Signs Recent Vital Signs: Last Vital Signs Temp 97.9 F 08/25/17 22:59 Pulse 78 08/25/17 22:59 Resp 16 08/25/17 22:59 BP 130/64 08/25/17 22:59 Pulse Ox 98 08/25/17 23:06 - Labs Result Diagrams: 08/25/17 20:06 08/25/17 20:06 Labs: Laboratory Results - last 24 hr 08/25/17 08/25/17 08/25/17 20:06 20:06 20:06 WBC 3.3 L RBC 2.97 L Hgb 9.7 L D Hct 27.1 L MCV 91.5 MCH 32.8 H MCHC 35.9 RDW 14.6 H Plt Count 157 D MPV 7.8 Neut % (Auto) 36.6 L Lymph % (Auto) 42.0 H Butts % (Auto) 14.7 H Eos % (Auto) 5.4 H Baso % (Auto) 1.3 Neut # 1.2 L Lymph # 1.4 Butts # 0.5 Eos # 0.2 Baso # 0.0 Sodium 106 L* D Potassium 4.2 Chloride 77 L Carbon Dioxide 23 Anion Gap 10 BUN 6 L Creatinine 0.4 L Est GFR ( Amer) > 60 Est GFR (Non-Af Amer) > 60 POC Glucose (mg/dL) Random Glucose 94 Serum Osmolality Calcium 7.8 L Phosphorus 3.1 Magnesium 1.1 L Total Bilirubin 1.0 AST 65 H ALT 54 Alkaline Phosphatase 271 H D Ammonia 29 Total Creatine Kinase 36 L CK-MB (Mass) 0.74 Troponin I < 0.0120 Total Protein 7.1 Albumin 3.6 Globulin 3.4 Albumin/Globulin Ratio 1.1 Urine Color Urine Clarity Urine pH Ur Specific [place] Urine Protein Urine Glucose (UA) Urine Ketones Urine Blood Urine Nitrate Urine Bilirubin Urine Urobilinogen Ur Leukocyte Esterase Urine WBC (Auto) Urine RBC (Auto) Urine Osmolality Ur Random Sodium 08/25/17 08/25/17 08/25/17 20:18 20:35 21:53 WBC RBC Hgb Hct MCV MCH MCHC RDW Plt Count MPV Neut % (Auto) Lymph % (Auto) Butts % (Auto) Eos % (Auto) Baso % (Auto) Neut # Lymph # Butts # Eos # Baso # Sodium Potassium Chloride Carbon Dioxide Anion Gap BUN Creatinine Est GFR ( Amer) Est GFR (Non-Af Amer) POC Glucose (mg/dL) 88 Random Glucose Serum Osmolality 424 H Calcium Phosphorus Magnesium Total Bilirubin AST ALT Alkaline Phosphatase Ammonia Total Creatine Kinase CK-MB (Mass) Troponin I Total Protein Albumin Globulin Albumin/Globulin Ratio Urine Color Yellow Urine Clarity Clear Urine pH 7.0 Ur Specific [place] 1.015 Urine Protein Negative Urine Glucose (UA) Normal Urine Ketones Negative Urine Blood Negative Urine Nitrate Negative Urine Bilirubin Negative Urine Urobilinogen Normal Ur Leukocyte Esterase Neg Urine WBC (Auto) 1 Urine RBC (Auto) 5 H Urine Osmolality Ur Random Sodium 08/25/17 21:53 WBC RBC Hgb Hct MCV MCH MCHC RDW Plt Count MPV Neut % (Auto) Lymph % (Auto) Butts % (Auto) Eos % (Auto) Baso % (Auto) Neut # Lymph # Butts # Eos # Baso # Sodium Potassium Chloride Carbon Dioxide Anion Gap BUN Creatinine Est GFR ( Amer) Est GFR (Non-Af Amer) POC Glucose (mg/dL) Random Glucose Serum Osmolality Calcium Phosphorus Magnesium Total Bilirubin AST ALT Alkaline Phosphatase Ammonia Total Creatine Kinase CK-MB (Mass) Troponin I Total Protein Albumin Globulin Albumin/Globulin Ratio Urine Color Urine Clarity Urine pH Ur Specific [place] Urine Protein Urine Glucose (UA) Urine Ketones Urine Blood Urine Nitrate Urine Bilirubin Urine Urobilinogen Ur Leukocyte Esterase Urine WBC (Auto) Urine RBC (Auto) Urine Osmolality 571 Ur Random Sodium 153 Assessment & Plan - Assessment and Plan (Free Text) Assessment: * Symptomatic hyponatremia, with elevated urine osm, clinically low to euvolume is from SIADH, etiology is unclear DD of tumor, ?? chlorpromazine * Small cell lung ca with hepatic mets, stated chemo on, missed last 2 wks due to recurrent hyponatremia * CAD, cabg * Tobacco abuse * Plan: * Hypertonic saline * May benefit out patient f/u treatment with tolvaptan started in hospital * Monitor BPM q4h for control rise in sodium levels * GI, DVT prophylaxis * See orders for detail.
[2017-08-26] MEDS: Sodium Chloride 3% 500 ML IV ONE ×2 (07:20→16:12)
--- NOTE | 2017-08-26 08:11 | RAD ---
HISTORY: AMS COMPARISON: Comparison is made to 08/14/2017 FINDINGS: LUNGS: There are small bibasilar opacities seen may represent atelectasis. Otherwise no evidence of significant interval change in the lungs PLEURA: No significant pleural effusion identified, no pneumothorax apparent. CARDIOVASCULAR: The cardiac silhouette is normal in size. Post sternotomy changes are again noted. OSSEOUS STRUCTURES: No significant abnormalities. VISUALIZED UPPER ABDOMEN: Normal. OTHER FINDINGS: None. IMPRESSION: Small bibasilar opacities may represent atelectasis. Otherwise no interval change.
[2017-08-26] MEDS ORDERED: Magnesium Sulfate 1 gm in D5W 1 GM/100 ML BAG IVPB ONE (09:32)
[2017-08-26] MEDS ORDERED: Tolvaptan 15 MG TAB PO SCH (10:00)
[2017-08-26] MEDS: Tolvaptan 15 MG TAB PO SCH (10:30)
--- NOTE | 2017-08-26 16:05 | CP.PCM.PN ---
Subjective - Date & Time of Evaluation Date of Evaluation: 08/26/17 Time of Evaluation: 12:40 - Subjective Subjective: clinically same Objective - Vital Signs/Intake and Output Vital Signs (last 24 hours): Temp Pulse Resp BP Pulse Ox 98.5 F 77 16 132/67 100 08/26/17 12:00 08/26/17 12:24 08/26/17 12:24 08/26/17 12:24 08/26/17 12:24 Intake and Output: 08/26/17 08/26/17 06:59 18:59 Intake Total 140 325 Output Total 1400 1950 Balance -1260 -1625 - Medications Medications: Current Medications Acetaminophen (Tylenol 325mg Tab) 650 mg PO Q6 PRN PRN Reason: Pain, moderate (4-7) Last Admin: 08/26/17 10:13 Dose: 650 mg Aspirin (Ecotrin) 81 mg PO DAILY [facility] Last Admin: 08/26/17 10:10 Dose: 81 mg Clopidogrel Bisulfate (Plavix) 75 mg PO DAILY [facility] Last Admin: 08/26/17 10:10 Dose: 75 mg Demeclocycline HCl (Declomycin) 300 mg PO BID [facility] Last Admin: 08/26/17 10:30 Dose: 300 mg Famotidine (Pepcid) 20 mg PO DAILY [facility] Last Admin: 08/26/17 10:10 Dose: 20 mg Heparin Sodium (Porcine) (Heparin) 5,000 units SC Q12 [facility] Last Admin: 08/26/17 10:11 Dose: 5,000 units Sodium Chloride (Hypertonic Saline 3%) 500 mls @ 35 mls/hr IV .[id number] ONE Stop: 08/26/17 21:21 Last Admin: 08/26/17 07:20 Dose: Not Given Metoclopramide HCl (Reglan) 5 mg PO BID [facility] Last Admin: 08/26/17 10:10 Dose: 5 mg Rosuvastatin Calcium (Crestor) 20 mg PO HS [facility] Sodium Chloride (Sodium Chloride Tab) 1 gm PO TID [facility] Last Admin: 08/26/17 13:41 Dose: 1 gm Tolvaptan (Samsca) 30 mg PO DAILY [facility] Stop: 08/27/17 22:33 Last Admin: 08/26/17 10:30 Dose: 30 mg - Labs Labs: 08/26/17 05:15 08/26/17 05:15 - Constitutional Appears: Well - Head Exam Head Exam: ATRAUMATIC, NORMAL INSPECTION, NORMOCEPHALIC - Eye Exam Eye Exam: EOMI, Normal appearance, PERRL Pupil Exam: NORMAL ACCOMODATION, PERRL - ENT Exam ENT Exam: Mucous Membranes Moist, Normal Exam - Neck Exam Neck Exam: Full ROM, Normal Inspection. absent: Lymphadenopathy - Respiratory Exam Respiratory Exam: Decreased Breath Sounds - Cardiovascular Exam Cardiovascular Exam: REGULAR RHYTHM, +S1, +S2 - GI/Abdominal Exam GI & Abdominal Exam: Soft, Diminished Bowel Sounds - Rectal Exam Rectal Exam: Deferred
[2017-08-26 20:44] LABS: ALB/GLOB RATIO 1.2 (1.0-2.1); ALKALINE PHOSPHATASE 327 U/L (38-126); ALT/SGPT 55 U/L (21-72); AST/SGOT 67 U/L (17-59); BILIRUBIN,TOTAL 0.9 mg/dL (0.2-1.3); BLOOD UREA NITROGEN 8 mg/dL (9-20); CALCIUM 8.6 mg/dl (8.6-10.4); CARBON DIOXIDE 24 mmol/L (22-30); CHLORIDE 97 mmol/L (98-107); GFR AFRICAN-AMERICAN > 60; GLUCOSE,RANDOM 82 mg/dL (75-110); MAGNESIUM 1.9 mg/dL (1.6-2.3); POTASSIUM 4.7 mmol/L (3.6-5.2); SODIUM 130 mmol/L (132-148); TOTAL PROTEIN 7.4 g/dL (6.3-8.3)
[2017-08-27 06:30] LABS: BASO % 0.9 % (0.0-2.0); EOS # 0.1 K/uL (0.0-0.7); HEMATOCRIT 32.3 % (35.0-51.0); LYMPH # 1.1 K/uL (1.0-4.3); LYMPH % 33.8 % (20.0-40.0); MEAN CELL VOLUME 92.8 fL (80.0-94.0); MEAN CORPUSCULAR HEMOGLOBIN 33.1 pg (27.0-31.0); MEAN CORPUSCULAR HGB CONC 35.7 g/dL (33.0-37.0); MEAN PLATELET VOLUME 7.7 fL (7.2-11.7); MONO # 0.7 K/uL (0.0-0.8); MONO % 22.7 % (0.0-10.0); NRBC % 0.2 % (0.0-2.0); PLATELET COUNT 255 K/uL (130-400); RED CELL DISTRIBUTION WIDTH 15.5 % (11.5-14.5); WHITE BLOOD COUNT 3.1 K/uL (4.8-10.8)
[2017-08-27 06:41] LABS: ALB/GLOB RATIO 1.5 (1.0-2.1); ALKALINE PHOSPHATASE 385 U/L (38-126); ALT/SGPT 52 U/L (21-72); AST/SGOT 80 U/L (17-59); BILIRUBIN,TOTAL 0.9 mg/dL (0.2-1.3); BLOOD UREA NITROGEN 9 mg/dL (9-20); CALCIUM 8.6 mg/dl (8.6-10.4); CARBON DIOXIDE 21 mmol/L (22-30); CHLORIDE 104 mmol/L (98-107); GFR AFRICAN-AMERICAN > 60; GLUCOSE,RANDOM 89 mg/dL (75-110); MAGNESIUM 1.9 mg/dL (1.6-2.3); PHOSPHOROUS 3.5 mg/dL (2.5-4.5); POTASSIUM 4.5 mmol/L (3.6-5.2); SODIUM 136 mmol/L (132-148); TOTAL PROTEIN 6.5 g/dL (6.3-8.3)
[2017-08-27 09:32] LABS: BASOPHIL 1 % (0-2); EOSINOPHIL 2 % (0-4); NEUTROPHIL 41 % (50-75); REACTIVE LYMPHOCYTES 1 % (0-0); TOTAL CELLS COUNTED 100
[2017-08-27] MEDS: Tolvaptan 15 MG TAB PO SCH (10:38)
--- NOTE | 2017-08-27 13:14 | CP.PCM.PN ---
Subjective - Date & Time of Evaluation Date of Evaluation: 08/27/17 Time of Evaluation: 13:10 - Subjective Subjective: Patient is in no distress, awake, responding to commands, participating in care , speaking to family on the phone. Objective - Vital Signs/Intake and Output Vital Signs (last 24 hours): Temp Pulse Resp BP Pulse Ox 97.9 F 100 H 18 128/80 99 08/27/17 12:00 08/27/17 12:00 08/27/17 12:00 08/27/17 12:00 08/27/17 12:00 Intake and Output: 08/27/17 08/27/17 06:59 18:59 Intake Total 780 730 Output Total 3010 885 Balance -2230 -155 - Medications Medications: Current Medications Acetaminophen (Tylenol 325mg Tab) 650 mg PO Q6 PRN PRN Reason: Pain, moderate (4-7) Last Admin: 08/27/17 05:47 Dose: 650 mg Aspirin (Ecotrin) 81 mg PO DAILY [facility] Last Admin: 08/27/17 10:37 Dose: 81 mg Clopidogrel Bisulfate (Plavix) 75 mg PO DAILY [facility] Last Admin: 08/27/17 10:37 Dose: 75 mg Demeclocycline HCl (Declomycin) 300 mg PO BID [facility] Last Admin: 08/27/17 10:39 Dose: 300 mg Famotidine (Pepcid) 20 mg PO DAILY [facility] Last Admin: 08/27/17 10:35 Dose: 20 mg Heparin Sodium (Porcine) (Heparin) 5,000 units SC Q12 [facility] Last Admin: 08/27/17 10:35 Dose: 5,000 units Metoclopramide HCl (Reglan) 5 mg PO BID [facility] Last Admin: 08/27/17 10:37 Dose: 5 mg Pneumococcal Polyvalent Vaccine (Pneumovax 23 Vaccine) 0.5 ml SC .ONCE ONE Stop: 08/28/17 10:01 Rosuvastatin Calcium (Crestor) 20 mg PO HS [facility] Last Admin: 08/26/17 22:03 Dose: 20 mg Tolvaptan (Samsca) 30 mg PO DAILY [facility] Stop: 08/27/17 22:33 Last Admin: 08/27/17 10:38 Dose: 30 mg - Labs Labs: 08/27/17 06:21 08/27/17 06:15 - Additional Findings Additional findings: * HEENT LILIANA * Neck Supple * Chest Clear * CVS Regular, no gallop or rub * PA soft, nt bs present * Ext no edema * Skin normal turgor * CASH CLERK pleasant, moving all ext, awake, participating in care. Assessment and Plan - Assessment and Plan (Free Text) Assessment: * Hyponatremia form SIADH, recurrent, responded to tolvaptan, hypertonic saline with improvement in mental status, may avoid chlorpromazine, may need tolvaptan as out patient as well, patient should be hydrated well while on tolvaptan otherwise will get dehydrated. * Small cell lung ca with mets, patient on chemo * GI/DVT prophylaxis * Will transfer patient to regular floor.
[2017-08-27 16:16] VITALS: RESP 20
--- NOTE | 2017-08-27 16:42 | CP.PCM.PN ---
Subjective - Date & Time of Evaluation Date of Evaluation: 08/27/17 Time of Evaluation: 09:00 - Subjective Subjective: clinically same Objective - Vital Signs/Intake and Output Vital Signs (last 24 hours): Temp Pulse Resp BP Pulse Ox 97.9 F 89 20 112/64 97 08/27/17 16:15 08/27/17 16:15 08/27/17 16:15 08/27/17 16:15 08/27/17 16:15 Intake and Output: 08/27/17 08/27/17 06:59 18:59 Intake Total 780 1010 Output Total 3010 1085 Balance -2230 -75 - Medications Medications: Current Medications Acetaminophen (Tylenol 325mg Tab) 650 mg PO Q6 PRN PRN Reason: Pain, moderate (4-7) Last Admin: 08/27/17 05:47 Dose: 650 mg Aspirin (Ecotrin) 81 mg PO DAILY [facility] Last Admin: 08/27/17 10:37 Dose: 81 mg Clopidogrel Bisulfate (Plavix) 75 mg PO DAILY [facility] Last Admin: 08/27/17 10:37 Dose: 75 mg Demeclocycline HCl (Declomycin) 300 mg PO BID [facility] Last Admin: 08/27/17 10:39 Dose: 300 mg Famotidine (Pepcid) 20 mg PO DAILY [facility] Last Admin: 08/27/17 10:35 Dose: 20 mg Heparin Sodium (Porcine) (Heparin) 5,000 units SC Q12 [facility] Last Admin: 08/27/17 10:35 Dose: 5,000 units Metoclopramide HCl (Reglan) 5 mg PO BID [facility] Last Admin: 08/27/17 10:37 Dose: 5 mg Pneumococcal Polyvalent Vaccine (Pneumovax 23 Vaccine) 0.5 ml SC .ONCE ONE Stop: 08/28/17 10:01 Rosuvastatin Calcium (Crestor) 20 mg PO HS [facility] Last Admin: 08/26/17 22:03 Dose: 20 mg Tolvaptan (Samsca) 30 mg PO DAILY [facility] Stop: 08/27/17 22:33 Last Admin: 08/27/17 10:38 Dose: 30 mg - Labs Labs: 08/27/17 06:21 08/27/17 06:15 - Constitutional Appears: Well - Head Exam Head Exam: ATRAUMATIC, NORMAL INSPECTION, NORMOCEPHALIC - Eye Exam Eye Exam: EOMI, Normal appearance, PERRL Pupil Exam: NORMAL ACCOMODATION, PERRL - ENT Exam ENT Exam: Mucous Membranes Moist, Normal Exam - Neck Exam Neck Exam: Full ROM, Normal Inspection. absent: Lymphadenopathy - Respiratory Exam Respiratory Exam: Decreased Breath Sounds - Cardiovascular Exam Cardiovascular Exam: +S1, +S2 - GI/Abdominal Exam GI & Abdominal Exam: Diminished Bowel Sounds - Rectal Exam Rectal Exam: Deferred
[2017-08-28 07:34] LABS: BASO % 1.1 % (0.0-2.0); EOS # 0.2 K/uL (0.0-0.7); EOS % 4.8 % (0.0-4.0); HEMATOCRIT 30.6 % (35.0-51.0); LYMPH # 1.8 K/uL (1.0-4.3); LYMPH % 44.2 % (20.0-40.0); MEAN CELL VOLUME 93.8 fL (80.0-94.0); MEAN CORPUSCULAR HEMOGLOBIN 33.4 pg (27.0-31.0); MEAN CORPUSCULAR HGB CONC 35.6 g/dL (33.0-37.0); MEAN PLATELET VOLUME 7.4 fL (7.2-11.7); MONO # 0.8 K/uL (0.0-0.8); MONO % 19.8 % (0.0-10.0); NRBC % 0.1 % (0.0-2.0); RED CELL DISTRIBUTION WIDTH 16.3 % (11.5-14.5); WHITE BLOOD COUNT 4.1 K/uL (4.8-10.8)
[2017-08-28 08:15] LABS: ALB/GLOB RATIO 1.1 (1.0-2.1); ALKALINE PHOSPHATASE 378 U/L (38-126); ALT/SGPT 62 U/L (21-72); AST/SGOT 94 U/L (17-59); BLOOD UREA NITROGEN 9 mg/dL (9-20); CARBON DIOXIDE 24 mmol/L (22-30); CHLORIDE 101 mmol/L (98-107); GFR AFRICAN-AMERICAN > 60; GLUCOSE,RANDOM 90 mg/dL (75-110); MAGNESIUM 1.7 mg/dL (1.6-2.3); PHOSPHOROUS 4.6 mg/dL (2.5-4.5); SODIUM 133 mmol/L (132-148); TOTAL PROTEIN 7.6 g/dL (6.3-8.3)
[2017-08-28 08:21] VITALS: BP 121/67; TEMP 98.4
[2017-08-28] MEDS ORDERED: Pneumococcal 23-Valent Vaccine SC ONE (10:00)
[2017-08-28] MEDS ORDERED: Influenza Vaccine 60 mcg/0.5 mL SYR (4YR UP) IM ONE (10:00)
[2017-08-28 12:56] VITALS: PULSE 75; O2SAT 99
--- NOTE | 2017-08-28 17:21 | CP.PCM.PN ---
Subjective - Date & Time of Evaluation Date of Evaluation: 08/28/17 Time of Evaluation: 11:00 - Subjective Subjective: Alert, awake, ambuatory, denies any distress. Objective - Vital Signs/Intake and Output Vital Signs (last 24 hours): Temp Pulse Resp BP Pulse Ox 98.4 F 75 20 121/67 99 08/28/17 08:20 08/28/17 12:33 08/28/17 08:20 08/28/17 08:20 08/28/17 12:33 Intake and Output: 08/28/17 08/28/17 06:59 18:59 Intake Total 550 500 Balance 550 500 - Labs Labs: 08/28/17 07:14 08/28/17 07:14 Assessment and Plan - Assessment and Plan (Free Text) Assessment: Patient admitted with hyponatremia, sodium 133 today. awake, alert, ambulatory. Family at the bedside. Discussed with DR Debo Mccartney, plan to discharge home today with his son. Tramadol given for pain prn. Advised to follow up with PMD IN 1 WEEK.
--- NOTE | 2017-08-29 11:33 | CARD ---
APPROVED REPORT EKG Measurement Heart [id number] <Conclusion> Normal sinus rhythm Incomplete right bundle branch block Cannot rule out Anterior infarct, age undetermined Abnormal ECG
== END 2017-08-28 16:10 | disposition home or self-care (01) | DRG 644 ==
LOC: C.ER 19:23 → C.9E 21:52 → C.9I 22:40 → C.3T 08-27 14:51
PROVIDERS: ADMIT Internal Medicine Nephrology; ATTEND Internal Medicine Nephrology
PROC: 3E0234Z Introduction of Serum, Toxoid and Vaccine into Muscle, Percutaneous Approach (ICD-10-PCS; principal; 2017-08-28)
DX: E22.2 Syndrome of inappropriate secretion of antidiuretic hormone (principal); C78.7 Secondary malignant neoplasm of liver and intrahepatic bile duct; C34.90 Malignant neoplasm of unspecified part of unspecified bronchus or lung; E78.00 Pure hypercholesterolemia, unspecified; E78.5 Hyperlipidemia, unspecified; E86.0 Dehydration; I10 Essential (primary) hypertension; I25.10 Atherosclerotic heart disease of native coronary artery without angina pectoris; Z72.0 Tobacco use; Z95.1 Presence of aortocoronary bypass graft; Z23 Encounter for immunization

== ENCOUNTER 2017-11-08 17:32 | Emergency (ER) | payer MEDICARE, OTHER ==
[2017-11-08 18:24] VITALS: BMI 24.1
--- NOTE | 2017-11-08 19:28 | C.PDOC ---
History Of Present Illness 62 year old male presents complaining of some spasms in both legs. No fever, chills, nausea, or vomiting. Has had similar symptoms in the past. Patient has past medical history of metastatic lung cancer. Saw his doctor and was instructed to come to the ER for evaluation. Patient is speaking in complete sentences. PMD: Shaik Junior Time Seen by Provider: 11/08/17 19:27 Chief Complaint (Nursing): Lower Extremity Problem/Injury History Per: Patient History/Exam Limitations: no limitations Onset/Duration Of Symptoms: Hrs Current Symptoms Are (Timing): Still Present Severity: Moderate Recent travel outside of the [place]: No Past Medical History Reviewed: Historical Data, Nursing Documentation, Vital Signs Vital Signs: Last Vital Signs Temp 98.6 F 11/08/17 18:24 Pulse 96 H 11/08/17 18:24 Resp 20 11/08/17 18:24 BP 106/60 11/08/17 18:24 Pulse Ox 100 11/08/17 20:27 - Medical History PMH: Arthritis (HX OF B/L HIP PAIN L>R), Gastritis, HTN, Hypercholesterolemia, Hyperlipidemia, Malignancy (metastatic lung CA) Denies: Chronic Kidney Disease Surgical History: CABG Denies: Pacemaker - [facility] Procedures EXCISION OF LIVER, PERCUTANEOUS APPROACH, DIAGNOSTIC (07/01/17) INTRODUCTION OF SERUM/TOX/VACCINE INTO MUSCLE, PERC APPROACH (08/25/17) Family History: States: Unknown Family Hx - Social History Hx Alcohol Use: Yes (former) Hx Substance Use: No - Immunization History Hx Tetanus Toxoid Vaccination: No Hx Influenza Vaccination: No Hx Pneumococcal Vaccination: No Review Of Systems Constitutional: Negative for: Fever, Chills Gastrointestinal: Negative for: Nausea, Vomiting Musculoskeletal: Positive for: Other (bilateral leg spasms) Physical Exam - Physical Exam Appears: Non-toxic, No Acute Distress Skin: Warm, Dry Head: Normacephalic Eye(s): bilateral: Normal Inspection Oral Mucosa: Moist Neck: Trachea Midline, Supple Chest: Symmetrical Cardiovascular: Rhythm Regular Respiratory: No Rales, Rhonchi (scattered), No Wheezing Gastrointestinal/Abdominal: No Tenderness, Organomegaly (hepatomegaly), Distention, Other (tympanic to percussion) Back: Normal Inspection Extremity: Normal ROM, No Tenderness, Capillary Refill (normal), No Deformity Extremity: Bilateral: Atraumatic, No Pedal Edema Pulses: Left Dorsalis Pedis: Normal, Right Dorsalis Pedis: Normal Neurological/Psych: Oriented x3 Gait: Steady ED Course And Treatment - Laboratory Results Result Diagrams: 11/08/17 19:53 11/08/17 19:53 O2 Sat by Pulse Oximetry: 100 (RA) Pulse Ox Interpretation: Normal Progress Note: Ordered labs and urinalysis. Disposition Counseled Patient/Family Regarding: Studies Performed, Diagnosis, Need For Followup - Disposition Referrals: Shaik Pacheco MD [Staff Provider] - Disposition: HOME/ ROUTINE Disposition Time: 19:28 Condition: FAIR Instructions: Nocturnal (Nighttime) Leg Cramps (DC), Hyponatremia (DC) Forms: Cubie (Frisian) Print Language: SENEGALESE - Clinical Impression Clinical Impression: Leg cramps, Hyponatremia - Scribe Statement The provider has reviewed the documentation as recorded by the Scribe (Tiffany Otero) Provider Attestation: All medical record entries made by the Scribe were at my direction and personally dictated by me. I have reviewed the chart and agree that the record accurately reflects my personal performance of the history, physical exam, medical decision making, and the department course for this patient. I have also personally directed, reviewed, and agree with the discharge instructions and disposition.
[2017-11-08 19:57] LABS: EOS # 0.1 K/uL (0.0-0.7); MONO # 0.6 K/uL (0.0-0.8); NEUT # 0.4 K/uL (1.8-7.0)
[2017-11-08 20:04] LABS: BASO % 0.8 % (0.0-2.0); EOS % 2.8 % (0.0-4.0); LYMPH # 1.3 K/uL (1.0-4.3); LYMPH % 54.7 % (20.0-40.0); MEAN CORPUSCULAR HGB CONC 34.8 g/dL (33.0-37.0); MEAN PLATELET VOLUME 8.1 fL (7.2-11.7); MONO % 25.3 % (0.0-10.0); NEUT % 16.4 % (50.0-75.0); NRBC % 0.2 % (0.0-2.0); RBC 2.48 Mil/uL (4.40-5.90); RED CELL DISTRIBUTION WIDTH 17.8 % (11.5-14.5); WHITE BLOOD COUNT 2.4 K/uL (4.8-10.8)
[2017-11-08 20:05] LABS: INR 1.3
[2017-11-08 20:06] LABS: HEMOGLOBIN 8.4 g/dL (12.0-18.0); MEAN CELL VOLUME 97.7 fL (80.0-94.0); PLATELET COUNT 104 K/uL (130-400)
[2017-11-08 20:13] LABS: ALB/GLOB RATIO 1.2 (1.0-2.1); ALBUMIN 3.9 g/dL (3.5-5.0); ALT/SGPT 32 U/L (21-72); AST/SGOT 69 U/L (17-59); BLOOD UREA NITROGEN 18 mg/dL (9-20); GFR AFRICAN-AMERICAN > 60; GFR NON-AFRICAN AMERICAN > 60; MAGNESIUM 1.6 mg/dL (1.6-2.3)
[2017-11-08 21:11] LABS: URINE BACTERIA RARE (<OCC); URINE BILIRUBIN NEGATIVE (NEGATIVE); URINE BLOOD 1+ (NEGATIVE); URINE CLARITY Clear (Clear); URINE COLOR Yellow (YELLOW); URINE GLUCOSE (UA) NORMAL (Normal); URINE LEUKOCYTE ESTERASE NEG Leu/uL (Negative); URINE NITRATE NEGATIVE (NEGATIVE); URINE PROTEIN NEGATIVE (NEGATIVE)
[2017-11-08 21:39] LABS: BANDS 4 % (0-2); BASOPHIL 1 % (0-2); EOSINOPHIL 4 % (0-4); LYMPHOCYTE 48 % (20-40); MONOCYTE 28 % (0-10); NEUTROPHIL 13 % (50-75); REACTIVE LYMPHOCYTES 2 % (0-0); TOTAL CELLS COUNTED 100
[2017-11-08 21:40] LABS: HYPOCHROMIC SLIGHT; PLATELET ESTIMATE SLIGHTLY DECREASED (NORMAL); POLYCHROMIC SLIGHT
[2017-11-08 21:42] LABS: LARGE PLATELETS PRESENT; ROULEAUX FORMATION SLIGHT
[2017-11-08 23:34] VITALS: BP 132/67; PULSE 92; RESP 18; TEMP 98.3; O2SAT 99
== END 2017-11-08 23:25 | disposition home or self-care (01) ==
LOC: C.ER 17:32
DX: R25.2 Cramp and spasm (principal); E87.1 Hypo-osmolality and hyponatremia

== ENCOUNTER 2017-11-26 09:31 | Inpatient (IN) | payer MEDICARE, OTHER ==
[2017-11-26 09:35] VITALS: BMI 24.7
[2017-11-26] MEDS ORDERED: Sodium Chloride 0.9% 1,000 ML IV ONE (10:09)
--- NOTE | 2017-11-26 10:13 | C.PDOC ---
History Of Present Illness 62 year old male, with past medical history of small cell lung cancer with metastases to liver on chemotherapy (last on 11/15), CAD, CABG in 2011, presents to ED for evaluation of dizziness which started 2 days ago. Pt states he feels room-spinning sensation when turning his head, and does not feel dizzy when laying down. Denies taking any medications at home for his symptoms. Otherwise, denies any visual changes, change in sensation, nausea, vomiting, chest pain, shortness of breath, or fever. Time Seen by Provider: 11/26/17 09:41 Chief Complaint (Nursing): Dizziness/Lightheaded History Per: Patient, Night Guard (daughter) History/Exam Limitations: language barrier (translated by daughter) Onset/Duration Of Symptoms: Days Current Symptoms Are (Timing): Still Present Recent travel outside of the [place]: No Additional History Per: Patient Past Medical History Reviewed: Historical Data, Nursing Documentation, Vital Signs Vital Signs: Last Vital Signs Temp 98.7 F 11/26/17 14:59 Pulse 81 11/26/17 14:59 Resp 20 11/26/17 14:59 BP 113/62 11/26/17 14:59 Pulse Ox 100 11/26/17 14:59 - Medical History PMH: Arthritis (HX OF B/L HIP PAIN L>R), Gastritis, HTN, Hypercholesterolemia, Hyperlipidemia, Malignancy (metastatic lung CA) Denies: Chronic Kidney Disease Surgical History: CABG Denies: Pacemaker - [facility] Procedures EXCISION OF LIVER, PERCUTANEOUS APPROACH, DIAGNOSTIC (07/01/17) INTRODUCTION OF SERUM/TOX/VACCINE INTO MUSCLE, PERC APPROACH (08/25/17) Family History: States: Unknown Family Hx - Social History Hx Alcohol Use: Yes (former) Hx Substance Use: No - Immunization History Hx Tetanus Toxoid Vaccination: No Hx Influenza Vaccination: No Hx Pneumococcal Vaccination: No Review Of Systems Except As Marked, All Systems Reviewed And Found Negative. Constitutional: Negative for: Fever, Chills Eyes: Negative for: Vision Change Cardiovascular: Negative for: Chest Pain, Palpitations Respiratory: Negative for: Cough, Shortness of Breath Gastrointestinal: Negative for: Nausea, Vomiting Neurological: Positive for: Dizziness. Negative for: Weakness, Numbness, Headache Physical Exam - Physical Exam Appears: Non-toxic, No Acute Distress, Chronically Ill Skin: Warm, Dry, Jaundice Head: Atraumatic, Normacephalic Eye(s): bilateral: Normal Inspection, EOMI Ear(s): Left: Other (hearing aid in place, dry perforated TM), Right: TM Erythema (wet and erythematous TM appearance, no mastoid swelling or tenderness) Nose: Normal Oral Mucosa: Moist Throat: Normal, No Erythema, No Exudate Neck: Normal ROM, Supple Lymphatic: Normal Exam Chest: Symmetrical Cardiovascular: Rhythm Regular Respiratory: Normal Breath Sounds, No Rales, No Rhonchi, No Wheezing Gastrointestinal/Abdominal: Soft, No Tenderness Extremity: Normal ROM Neurological/Psych: Oriented x3, Normal Speech, No Other (no focal deficits) ED Course And Treatment - Laboratory Results Result Diagrams: 11/26/17 10:14 11/26/17 10:14 ECG: Interpreted By Me, Viewed By Me ECG Rhythm: Sinus Rhythm ECG Interpretation: No Acute Changes Rate From EC (bpm) O2 Sat by Pulse Oximetry: 100 (RA) Pulse Ox Interpretation: Normal - CT Scan/US Head CT Other Rad Studies (CT/US): Read By Radiologist, Radiology Report Reviewed CT/US Interpretation: PROCEDURE: CT HEAD WITHOUT CONTRAST. HISTORY: R/O Bleed. COMPARISON: Noncontrast head CT performed 08/25/17. TECHNIQUE: Axial computed tomography images were obtained through the head/brain without intravenous contrast. Radiation dose: Total exam DLP = 841.08 mGy-cm. This CT exam was performed using one or more of the following dose reduction techniques: Automated exposure control, adjustment of the mA and/or kV according to patient size, and/or use of iterative reconstruction technique. FINDINGS: HEMORRHAGE: No intracranial hemorrhage. BRAIN: Diffuse atrophy with prominence of the ventricles and sulci noted. No mass effect or edema. Scattered periventricular and subcortical white matter hypodensities, which are nonspecific, but often seen with chronic microvascular ischemic disease. Please note that MRI with diffusion imaging is more sensitive in the detection of acute ischemic event. VENTRICLES: No hydrocephalus. CALVARIUM: Unremarkable. PARANASAL SINUSES: Unremarkable as visualized. No significant inflammatory changes. MASTOID AIR CELLS: Opacification/fluid involving bilateral mastoid air cells; correlate clinically for possibility of otomastoiditis. OTHER FINDINGS: None. IMPRESSION: Generalized atrophy. Nonspecific white matter changes. Opacification/fluid involving bilateral mastoid air cells; correlate clinically for possibility of otomastoiditis. Progress Note: Blood work, Head CT, EKG ordered and reviewed. Pt was given Meclizine and IV fluids. On re-eval, pt is resting comfortably, no acute distress. Case discussed with Dr. Debo Mccartney who agrees upon plan and admission. Case discussed with Dr Bae , will consult inpatient. Disposition - Disposition Disposition: HOSPITALIZED Disposition Time: 12:55 Condition: STABLE - Clinical Impression Clinical Impression: Hyponatremia, Small cell lung cancer, Dizziness, Otitis media, Anemia - PA / LOOM CHANGEOVER OPERATOR / Resident Statement MD/DO has reviewed & agrees with the documentation as recorded. - Scribe Statement The provider has reviewed the documentation as recorded by the Scribe Antonette Mccartney All medical record entries made by the Unaiblo were at my direction and personally dictated by me. I have reviewed the chart and agree that the record accurately reflects my personal performance of the history, physical exam, medical decision making, and the department course for this patient. I have also personally directed, reviewed, and agree with the discharge instructions and disposition.
[2017-11-26 10:22] LABS: BASO % 1.5 % (0.0-2.0); EOS # 0.1 K/uL (0.0-0.7); HEMOGLOBIN 8.1 g/dL (12.0-18.0); LYMPH # 0.9 K/uL (1.0-4.3); LYMPH % 36.1 % (20.0-40.0); MEAN CELL VOLUME 97.8 fL (80.0-94.0); MEAN CORPUSCULAR HEMOGLOBIN 34.5 pg (27.0-31.0); MEAN CORPUSCULAR HGB CONC 35.3 g/dL (33.0-37.0); MEAN PLATELET VOLUME 8.3 fL (7.2-11.7); MONO # 0.2 K/uL (0.0-0.8); NEUT # 1.2 K/uL (1.8-7.0); NEUT % 48.4 % (50.0-75.0); RBC 2.34 Mil/uL (4.40-5.90); RED CELL DISTRIBUTION WIDTH 18.9 % (11.5-14.5); WHITE BLOOD COUNT 2.6 K/uL (4.8-10.8)
[2017-11-26 10:41] LABS: ALB/GLOB RATIO 1.3 (1.0-2.1); ALT/SGPT 36 U/L (21-72); AST/SGOT 49 U/L (17-59); BLOOD UREA NITROGEN 8 mg/dL (9-20); GFR AFRICAN-AMERICAN > 60; GFR NON-AFRICAN AMERICAN > 60
[2017-11-26 10:46] LABS: CK-MB 0.46 ng/mL (0.0-3.38)
--- NOTE | 2017-11-26 11:24 | CT ---
PROCEDURE: CT HEAD WITHOUT CONTRAST. HISTORY: R/O Bleed COMPARISON: Noncontrast head CT performed 08/25/17 TECHNIQUE: Axial computed tomography images were obtained through the head/brain without intravenous contrast. Radiation dose: Total exam DLP = 841.08 mGy-cm. This CT exam was performed using one or more of the following dose reduction techniques: Automated exposure control, adjustment of the mA and/or kV according to patient size, and/or use of iterative reconstruction technique. FINDINGS: HEMORRHAGE: No intracranial hemorrhage. BRAIN: Diffuse atrophy with prominence of the ventricles and sulci noted. No mass effect or edema. Scattered periventricular and subcortical white matter hypodensities, which are nonspecific, but often seen with chronic microvascular ischemic disease. Please note that MRI with diffusion imaging is more sensitive in the detection of acute ischemic event. VENTRICLES: No hydrocephalus. CALVARIUM: Unremarkable. PARANASAL SINUSES: Unremarkable as visualized. No significant inflammatory changes. MASTOID AIR CELLS: Opacification/fluid involving bilateral mastoid air cells; correlate clinically for possibility of otomastoiditis. OTHER FINDINGS: None. IMPRESSION: Generalized atrophy Nonspecific white matter changes. Opacification/fluid involving bilateral mastoid air cells; correlate clinically for possibility of otomastoiditis.
[2017-11-26] MEDS ORDERED: cefTRIAXone IV 1 gm in Dextros 50 ML IVPB ONE (12:53)
[2017-11-26 14:59] VITALS: RESP 20
--- NOTE | 2017-11-26 15:38 | CP.PCM.HP ---
Past Patient History - Infectious Disease Hx of Infectious Diseases: None - Past Medical History & Family History Past Medical History?: Yes - Past Social History Smoking Status: Former Smoker - CARDIAC Hx Hypercholesterolemia: Yes Hx Hypertension: Yes Hx Pacemaker: No - PULMONARY Hx Respiratory Disorders: No - NEUROLOGICAL Hx Neurological Disorder: No Hx Paralysis: No - HEENT Hx HEENT Problems: No - RENAL Hx Chronic Kidney Disease: No - ENDOCRINE/METABOLIC Hx Endocrine Disorders: No - HEMATOLOGICAL/ONCOLOGICAL Hx Blood Disorders: Yes Hx Cancer: Yes (liver CA mets) Hx Chemotherapy: Yes (mets, liver, pancreas, bones , lung) - INTEGUMENTARY Hx Dermatological Problems: No - MUSCULOSKELETAL/RHEUMATOLOGICAL Hx Arthritis: Yes (HX OF B/L HIP PAIN L>R) - GASTROINTESTINAL Hx Gastritis: Yes - GENITOURINARY/GYNECOLOGICAL Hx Genitourinary Disorders: No - PSYCHIATRIC Hx Substance Use: No - SURGICAL HISTORY Hx Coronary Artery Bypass Graft: Yes - ANESTHESIA Hx Anesthesia: Yes Hx Anesthesia Reactions: No Hx Malignant Hyperthermia: No Meds Allergies/Adverse Reactions: Allergies Allergy/AdvReac Type Severity Reaction Status Date / Time No Known Allergies Allergy Verified 11/26/17 09:34 Physical Exam - Constitutional Appears: Well - Head Exam Head Exam: ATRAUMATIC, NORMAL INSPECTION, NORMOCEPHALIC - Eye Exam Eye Exam: EOMI, Normal appearance, PERRL Pupil Exam: NORMAL ACCOMODATION, PERRL - ENT Exam ENT Exam: Mucous Membranes Moist, Normal Exam - Neck Exam Neck exam: Positive for: Normal Inspection - Respiratory Exam Respiratory Exam: Decreased Breath Sounds - Cardiovascular Exam Cardiovascular Exam: REGULAR RHYTHM, +S1, +S2 - GI/Abdominal Exam GI & Abdominal Exam: Diminished Bowel Sounds, Soft - Rectal Exam Rectal Exam: Deferred Results - Vital Signs Recent Vital Signs: Last Vital Signs Temp 98.7 F 11/26/17 14:59 Pulse 81 11/26/17 14:59 Resp 20 11/26/17 14:59 BP 113/62 11/26/17 14:59 Pulse Ox 100 11/26/17 14:59 - Labs Result Diagrams: 11/26/17 10:14 11/26/17 10:14 Labs: Laboratory Results - last 24 hr 11/26/17 11/26/17 11/26/17 08:51 10:14 10:14 WBC 2.6 L RBC 2.34 L Hgb 8.1 L Hct 22.9 L MCV 97.8 H MCH 34.5 H MCHC 35.3 RDW 18.9 H Plt Count 79 L D MPV 8.3 Neut % (Auto) 48.4 L Lymph % (Auto) 36.1 Dane % (Auto) 9.0 Eos % (Auto) 5.0 H Baso % (Auto) 1.5 Neut # (Auto) 1.2 L Lymph # (Auto) 0.9 L Dane # (Auto) 0.2 Eos # (Auto) 0.1 Baso # (Auto) 0.0 Sodium 127 L Potassium 4.4 Chloride 92 L Carbon Dioxide 22 Anion Gap 17 BUN 8 L Creatinine 0.6 L Est GFR ( Amer) > 60 Est GFR (Non-Af Amer) > 60 POC Glucose (mg/dL) 148 H Random Glucose 148 H Calcium 9.0 Total Bilirubin 0.8 AST 49 ALT 36 Alkaline Phosphatase 264 H D Total Creatine Kinase 56 CK-MB (Mass) 0.46 Troponin I < 0.0120 Total Protein 7.0 Albumin 4.0 Globulin 3.1 Albumin/Globulin Ratio 1.3
[2017-11-26] MEDS ORDERED: FENTANYL TD SCH (15:45)
--- NOTE | 2017-11-26 18:32 | CP.PCM.CON ---
History of Present Illness - History of Present Illness History of Present Illness: 62 year old male with a history of HTN, GERD, HL, CAD s/p CABG, stage IV small cell lung cancer with liver metastasis dx 06/2017 on chemotherapy, admitted with vertigo and hyponatremia. The patient reports to dizziness when moving his head. It does not occur when lying still at rest. He denies N/V. He received chemotherapy about 2 weeks ago. He denies fevers and chills but does have ear pain. Past medical history: HTN, GERD, HL, CAD s/p CABG. Past surgical history: Denies. Family history: Denies hematologic and oncologic problems Social histoy: smokes 2 cigs daily x 50 years, former alcohol abuse. Allergies: NKA Review of systems: All remaining review of systems including HEENT, cardiovascular, respiratory, gastrointestinal, genitourinary, musculoskeletal, dermatologic, neurologic, and psychiatric are negative unless mentioned in the HPI. Past Patient History - Infectious Disease Hx of Infectious Diseases: None - Past Medical History & Family History Past Medical History?: Yes - Past Social History Smoking Status: Never Smoked - CARDIAC Hx Cardiac Disorders: Yes Hx Hypercholesterolemia: Yes Hx Hypertension: Yes Hx Pacemaker: No - PULMONARY Hx Respiratory Disorders: No - NEUROLOGICAL Hx Neurological Disorder: No Hx Paralysis: No - HEENT Hx HEENT Problems: No - RENAL Hx Chronic Kidney Disease: No - ENDOCRINE/METABOLIC Hx Endocrine Disorders: No - HEMATOLOGICAL/ONCOLOGICAL Hx Blood Disorders: Yes Hx Cancer: Yes (liver CA mets) Hx Chemotherapy: Yes (mets, liver, pancreas, bones , lung) - INTEGUMENTARY Hx Dermatological Problems: No - MUSCULOSKELETAL/RHEUMATOLOGICAL Hx Musculoskeletal Disorders: Yes Hx Arthritis: Yes (HX OF B/L HIP PAIN L>R) Hx Falls: No - GASTROINTESTINAL Hx Gastrointestinal Disorders: Yes Hx Gastritis: Yes - GENITOURINARY/GYNECOLOGICAL Hx Genitourinary Disorders: No - PSYCHIATRIC Hx Psychophysiologic Disorder: No Hx Substance Use: No - SURGICAL HISTORY Hx Surgeries: Yes Hx Coronary Artery Bypass Graft: Yes - ANESTHESIA Hx Anesthesia: Yes Hx Anesthesia Reactions: No Hx Malignant Hyperthermia: No Has any member of the family had a problem w/ anesthesia?: No Meds Allergies/Adverse Reactions: Allergies Allergy/AdvReac Type Severity Reaction Status Date / Time No Known Allergies Allergy Verified 11/26/17 09:34 - Medications Medications: Current Medications Alprazolam (Xanax) 0.5 mg PO Q12 [facility] Aspirin (Ecotrin) 81 mg PO DAILY [facility] Clopidogrel Bisulfate (Plavix) 75 mg PO DAILY [facility] Ergocalciferol (Drisdol 50,000 Intl Units Cap) 1 cap PO Q7D [facility] Famotidine (Pepcid) 20 mg PO DAILY [facility] Fentanyl (Duragesic) 1 patch TD Q72H [facility] Ferrous Sulfate (Feosol) 325 mg PO DAILY [facility] Rosuvastatin Calcium (Crestor) 20 mg PO HS [facility] Sodium Chloride (Sodium Chloride Tab) 1 gm PO BID [facility] Last Admin: 11/26/17 17:30 Dose: 1 gm Tramadol HCl (Ultram) 50 mg PO TID PRN PRN Reason: Pain, severe (8-10) Physical Exam - Head Exam Head Exam: ATRAUMATIC - Eye Exam Eye Exam: Normal appearance - ENT Exam ENT Exam: Mucous Membranes Dry - Respiratory Exam Respiratory Exam: NORMAL BREATHING PATTERN - Cardiovascular Exam Cardiovascular Exam: +S1, +S2 - GI/Abdominal Exam GI & Abdominal Exam: Normal Bowel Sounds - Extremities Exam Extremities exam: Positive for: normal inspection - Neurological Exam Neurological exam: Oriented x3 - Psychiatric Exam Psychiatric exam: Normal Affect, Normal Mood - Skin Skin Exam: Warm Results - Vital Signs Recent Vital Signs: Last Vital Signs Temp 98.4 F 11/26/17 16:00 Pulse 80 11/26/17 16:00 Resp 20 11/26/17 16:00 BP 129/77 11/26/17 16:00 Pulse Ox 100 11/26/17 16:00 - Labs Result Diagrams: 11/26/17 10:14 11/26/17 10:14 Labs: Laboratory Results - last 24 hr 11/26/17 11/26/17 11/26/17 08:51 10:14 10:14 WBC 2.6 L RBC 2.34 L Hgb 8.1 L Hct 22.9 L MCV 97.8 H MCH 34.5 H MCHC 35.3 RDW 18.9 H Plt Count 79 L D MPV 8.3 Neut % (Auto) 48.4 L Lymph % (Auto) 36.1 [place] % (Auto) 9.0 Eos % (Auto) 5.0 H Baso % (Auto) 1.5 Neut # (Auto) 1.2 L Lymph # (Auto) 0.9 L [place] # (Auto) 0.2 Eos # (Auto) 0.1 Baso # (Auto) 0.0 Sodium 127 L Potassium 4.4 Chloride 92 L Carbon Dioxide 22 Anion Gap 17 BUN 8 L Creatinine 0.6 L Est GFR ( Amer) > 60 Est GFR (Non-Af Amer) > 60 POC Glucose (mg/dL) 148 H Random Glucose 148 H Calcium 9.0 Total Bilirubin 0.8 AST 49 ALT 36 Alkaline Phosphatase 264 H D Total Creatine Kinase 56 CK-MB (Mass) 0.46 Troponin I < 0.0120 Total Protein 7.0 Albumin 4.0 Globulin 3.1 Albumin/Globulin Ratio 1.3 Assessment & Plan (1) Dizziness Assessment and Plan: may be related to otitis media will order MRI of the brain to rule out brain metastasis Status: Acute (2) Pancytopenia Assessment and Plan: secondary to chemotherapy mild neutropenia no current growth factor/transfusion indication Status: Acute (3) Small cell lung cancer Assessment and Plan: stage IV liver metastasis on chemotherapy outpatient treatment Thank you for this interesting consult. Status: Acute
[2017-11-27 06:59] LABS: BASO % 1.2 % (0.0-2.0); EOS # 0.2 K/uL (0.0-0.7); EOS % 4.7 % (0.0-4.0); HEMOGLOBIN 8.3 g/dL (12.0-18.0); LYMPH # 1.5 K/uL (1.0-4.3); LYMPH % 43.7 % (20.0-40.0); MEAN CORPUSCULAR HGB CONC 36.1 g/dL (33.0-37.0); MEAN PLATELET VOLUME 8.5 fL (7.2-11.7); MONO # 0.5 K/uL (0.0-0.8); MONO % 13.5 % (0.0-10.0); NEUT # 1.3 K/uL (1.8-7.0); NEUT % 36.9 % (50.0-75.0); NRBC % 0.1 % (0.0-2.0); RBC 2.36 Mil/uL (4.40-5.90); RED CELL DISTRIBUTION WIDTH 18.7 % (11.5-14.5); WHITE BLOOD COUNT 3.5 K/uL (4.8-10.8)
[2017-11-27] MEDS ORDERED: Ergocalciferol 50,000 Intl Units Cap PO SCH (10:00)
[2017-11-27] MEDS ORDERED: VITAMINS A AND D PO SCH (10:00)
[2017-11-27] MEDS: Sodium Chloride 0.9% 1,000 ML IV SCH (10:15)
[2017-11-27] MEDS ORDERED: Gadodiamide 287 mg/ml 20 ml IV ONE (11:05)
[2017-11-27 12:20] LABS: BLOOD UREA NITROGEN 12 mg/dL (9-20); GFR AFRICAN-AMERICAN > 60; GFR NON-AFRICAN AMERICAN > 60
--- NOTE | 2017-11-27 12:42 | CARD ---
APPROVED REPORT EKG Measurement Heart [id number] <Conclusion> Normal sinus rhythm Septal infarct, age undetermined Abnormal ECG
--- NOTE | 2017-11-27 12:57 | MRI ---
PROCEDURE: MRI BRAIN WITH AND WITHOUT CONTRAST HISTORY: Vertigo, lung cancer r/o brain mets COMPARISON: Comparison made with CT scan brain dated 11/26/2017 and prior MRI of the brain dated 07/29/2017. TECHNIQUE: Multiplanar, multisequence MR images of the brain were obtained with and without intravenous contrast enhancement. Study is limited by motion artifact FINDINGS: HEMORRHAGE: No acute parenchymal, subarachnoid nor extra-axial hemorrhage. No evidence of hemosiderin deposition is identified on gradient echo weighted sequence. DWI: No evidence of an acute or early subacute infarction seen on diffusion imaging. . BRAIN PARENCHYMA: Mild diffuse/confluent chronic periventricular white matter ischemic changes again seen. Multiple more discrete chronic appearing lacunar type infarcts scattered about the deep and subcortical white matter of both cerebral hemispheres. . Moderate generalized volume loss ENHANCEMENT: Postcontrast imaging limited due to motion artifact There is a small round/elliptical shaped area of increased T1 signal/ contrast enhancement in the posteromedial aspect right temporal lobe best seen on axial image 17 series 12 that could represent metastatic lesion with some surrounding prolonged T2 signal edema. Note is made of a small round/elliptical shaped focal area of increased at T1 signal/ enhancement along the cortex of the left frontal lobe that is best seen on axial series 12, image number 11 with a smaller focus slightly medially located. These foci are not seen on any of the additional postcontrast sequences nor exhibit increased T2 signal on the heavy T2 weighted sequences ; the these foci probably represent enhancing cortical surface draining veins however the possibility of metastatic lesion not completely excluded and therefore repeat MRI with contrast in 4 6 weeks recommended to confirm. VENTRICLES: No obstructive hydrocephalus. CRANIUM: Calvarium unremarkable. ORBITS: Changes of bilateral cataract surgery again noted PARANASAL SINUSES/MASTOIDS: Minor mucosal thickening seen within several ethmoid air cells extending superiorly into the frontal sinus. There is also minor mucosal thickening left chamber sphenoid sinus. VASCULAR SYSTEM: Visualized major vascular flow voids at skull base patent OTHER FINDINGS: None . IMPRESSION: Limited motion degraded study . No evidence of acute intracranial hemorrhage or infarction. Chronic white matter ischemic changes as above. Small small metastatic lesion right posteromedial temporal lobe. See insert There are 2 small focal areas of enhancement along the cortex left frontal operculum region probably representing enhancing cortical surface draining veins. Findings possibility of metastatic lesion not completely excluded and therefore recommend repeat post-contrast MRI for 6 weeks to confirm. Moderate age-appropriate volume loss. Findings discussed with Dr. Mccartney at approximately 12:50 p.m. with written down and read back verification.
--- NOTE | 2017-11-27 14:24 | CP.PCM.PN ---
Subjective - Date & Time of Evaluation Date of Evaluation: 11/27/17 Time of Evaluation: 09:10 - Subjective Subjective: clinically same Objective - Vital Signs/Intake and Output Vital Signs (last 24 hours): Temp Pulse Resp BP Pulse Ox 985 F H 71 20 125/63 98 11/27/17 07:44 11/27/17 07:44 11/27/17 07:44 11/27/17 07:44 11/27/17 07:44 Intake and Output: 11/27/17 11/27/17 06:59 18:59 Intake Total 240 Balance 240 - Medications Medications: Current Medications Alprazolam (Xanax) 0.5 mg PO Q12 [facility] Last Admin: 11/27/17 09:52 Dose: 0.5 mg Aspirin (Ecotrin) 81 mg PO DAILY [facility] Last Admin: 11/27/17 09:51 Dose: 81 mg Clopidogrel Bisulfate (Plavix) 75 mg PO DAILY [facility] Last Admin: 11/27/17 09:52 Dose: 75 mg Demeclocycline HCl (Declomycin) 150 mg PO BID [facility] Ergocalciferol (Drisdol 50,000 Intl Units Cap) 1 cap PO Q7D [facility] Last Admin: 11/27/17 09:53 Dose: 1 cap Famotidine (Pepcid) 20 mg PO DAILY [facility] Last Admin: 11/27/17 09:51 Dose: 20 mg Fentanyl (Duragesic) 1 patch TD Q72H [facility] Last Admin: 11/27/17 09:52 Dose: 1 patch Ferrous Sulfate (Feosol) 325 mg PO DAILY [facility] Last Admin: 11/27/17 09:51 Dose: 325 mg Sodium Chloride (Sodium Chloride 0.9%) 1,000 mls @ 80 mls/hr IV .[id number] [facility] Last Admin: 11/27/17 10:15 Dose: 80 mls/hr Ceftriaxone Sodium 1 gm/ (Sodium Chloride) 100 mls @ 100 mls/hr IVPB Q24H [facility] PRN Reason: Protocol Neomycin/Polymyxin/Hydrocortisone (Cortisporin Otic Soln) 4 drop AU QID [facility] Rosuvastatin Calcium (Crestor) 20 mg PO HS [facility] Last Admin: 11/26/17 21:32 Dose: 20 mg Sodium Chloride (Sodium Chloride Tab) 1 gm PO BID [facility] Last Admin: 11/27/17 09:52 Dose: 1 gm Tramadol HCl (Ultram) 50 mg PO TID PRN PRN Reason: Pain, severe (8-10) Last Admin: 11/27/17 00:22 Dose: 50 mg - Labs Labs: 11/27/17 06:35 11/27/17 11:29 - Constitutional Appears: Well - Head Exam Head Exam: ATRAUMATIC, NORMAL INSPECTION, NORMOCEPHALIC - Eye Exam Eye Exam: EOMI, Normal appearance, PERRL Pupil Exam: NORMAL ACCOMODATION, PERRL - ENT Exam ENT Exam: Mucous Membranes Moist, Normal Exam - Neck Exam Neck Exam: Full ROM, Normal Inspection. absent: Lymphadenopathy - Respiratory Exam Respiratory Exam: Decreased Breath Sounds - Cardiovascular Exam Cardiovascular Exam: REGULAR RHYTHM, +S1, +S2 - GI/Abdominal Exam GI & Abdominal Exam: Soft, Diminished Bowel Sounds - Rectal Exam Rectal Exam: Deferred Assessment and Plan (1) Anemia Status: Acute (2) Dizziness Status: Acute (3) Hyponatremia Status: Acute (4) Otitis media Status: Acute (5) Pancytopenia Status: Acute (6) Small cell lung cancer Status: Acute (7) Abdominal pain Status: Acute (8) Electrolyte imbalance Status: Acute (9) Hepatomegaly Status: Acute (10) Hiccups Status: Acute (11) Hyponatremia with decreased serum osmolality Status: Acute (12) Intractable hiccups Status: Acute (13) Leg cramps Status: Acute (14) Leukopenia Status: Acute (15) Metastatic cancer to liver Status: Acute (16) SIADH (syndrome of inappropriate ADH production) Status: Acute (17) Thrombocytopenia Status: Acute - Assessment and Plan (Free Text) Plan: Sodium is 120 Continue demeclocycline increased to 300 Continue all other medication Continue Rocephin CAT scan of the MRI revealed possible metastases discussed with the radiologist Follow-up with the follow-up with Dr. Thompson Continue meclizine
[2017-11-27] MEDS: Neomycin/Polymyxin/Hydrocort Otic Soln BOTTLE AU SCH ×3 (14:41→21:24)
--- NOTE | 2017-11-27 21:21 | CP.PCM.PN ---
Subjective - Date & Time of Evaluation Date of Evaluation: 11/27/17 Time of Evaluation: 20:20 - Subjective Subjective: No complaints MRI brain performed ? subtle metastasis Objective - Vital Signs/Intake and Output Vital Signs (last 24 hours): Temp Pulse Resp BP Pulse Ox 98.3 F 75 20 117/60 98 11/27/17 15:15 11/27/17 15:15 11/27/17 15:15 11/27/17 15:15 11/27/17 15:55 Intake and Output: 11/27/17 11/28/17 18:59 06:59 Intake Total 1060 Balance 1060 - Medications Medications: Current Medications Alprazolam (Xanax) 0.5 mg PO Q12 [facility] Last Admin: 11/27/17 09:52 Dose: 0.5 mg Aspirin (Ecotrin) 81 mg PO DAILY [facility] Last Admin: 11/27/17 09:51 Dose: 81 mg Clopidogrel Bisulfate (Plavix) 75 mg PO DAILY [facility] Last Admin: 11/27/17 09:52 Dose: 75 mg Demeclocycline HCl (Declomycin) 300 mg PO BID [facility] Ergocalciferol (Drisdol 50,000 Intl Units Cap) 1 cap PO Q7D [facility] Last Admin: 11/27/17 09:53 Dose: 1 cap Famotidine (Pepcid) 20 mg PO DAILY [facility] Last Admin: 11/27/17 09:51 Dose: 20 mg Fentanyl (Duragesic) 1 patch TD Q72H [facility] Last Admin: 11/27/17 09:52 Dose: 1 patch Ferrous Sulfate (Feosol) 325 mg PO DAILY [facility] Last Admin: 11/27/17 09:51 Dose: 325 mg Sodium Chloride (Sodium Chloride 0.9%) 1,000 mls @ 80 mls/hr IV .[id number] [facility] Last Admin: 11/27/17 10:15 Dose: 80 mls/hr Ceftriaxone Sodium 1 gm/ (Sodium Chloride) 100 mls @ 100 mls/hr IVPB Q24H [facility] PRN Reason: Protocol Last Admin: 11/27/17 16:30 Dose: 100 mls/hr Meclizine HCl (Antivert) 25 mg PO Q8 [facility] Neomycin/Polymyxin/Hydrocortisone (Cortisporin Otic Soln) 4 drop AU QID [facility] Last Admin: 11/27/17 17:40 Dose: 4 drop Rosuvastatin Calcium (Crestor) 20 mg PO HS [facility] Last Admin: 11/26/17 21:32 Dose: 20 mg Sodium Chloride (Sodium Chloride Tab) 1 gm PO BID [facility] Last Admin: 11/27/17 17:41 Dose: 1 gm Tramadol HCl (Ultram) 50 mg PO TID PRN PRN Reason: Pain, severe (8-10) Last Admin: 11/27/17 00:22 Dose: 50 mg - Labs Labs: 11/27/17 06:35 11/27/17 11:29 - Head Exam Head Exam: ATRAUMATIC - Eye Exam Eye Exam: Normal appearance - ENT Exam ENT Exam: Mucous Membranes Dry - Respiratory Exam Respiratory Exam: NORMAL BREATHING PATTERN - Cardiovascular Exam Cardiovascular Exam: +S1, +S2 - GI/Abdominal Exam GI & Abdominal Exam: Normal Bowel Sounds Assessment and Plan (1) Dizziness Assessment & Plan: ? subtle brain mets by MRI will need repeat MRI brain in 4 weeks Status: Acute (2) Pancytopenia Assessment & Plan: secondary to chemotherapy Status: Acute (3) Small cell lung cancer Assessment & Plan: stage IV liver mets on chemotherapy ? brain mets; will need repeat MRI in 4 weeks Status: Acute
--- NOTE | 2017-11-27 23:19 | CON ---
DATE: 11/27/2017 REASON FOR CONSULTATION: Ear itching and dizziness. HISTORY OF PRESENT ILLNESS: This is a 62-year-old male who was again having dizziness yesterday that was constant and moderate in intensity. There was no hearing loss, it has resolved since. The patient has ear itching in both ears, on and off [id number] for the past few weeks. No pain. No ear discharge. PAST MEDICAL HISTORY: As noted in the chart by me. MEDICATIONS: As noted in the chart by me. PHYSICAL EXAMINATION: HEAD: Atraumatic and normocephalic. FACE: Good facial movements bilaterally. CONSTITUTIONAL: Well fed, well nourished. COMMUNICATION: Communicates well and appropriately. EXTERNAL NOSE AND EARS: No masses. No lesions. No erythema. No edema. INTERNAL NOSE AND EARS: TM intact on both sides, behind the right TM. No ear canal edema, or discharge. ORAL CAVITY AND OROPHARYNX: No masses. No lesions. No erythema. No edema. LIPS AND GUMS: No masses, no lesions, no erythema, no edema. NOSE: Deviated septum. No masses. No lesions. No erythema. No edema. NECK: Supple. THYROID: No thyromegaly. No goiter. LYMPH NODES: No lymphadenopathy of the neck. ASSESSMENT: A CAT scan is reviewed by me. It revealed otitis media on the right and nasopharyngeal mass on the CAT scan. 1. Right acute otitis media. 2. Ear itching. 3. Dizziness. PLAN: His MRI is normal. The patient will be discharged home, started on antibiotics and ear drops. The patient to follow up with me as an outpatient. Del Sanchez MD
[2017-11-28] MEDS: Sodium Chloride 0.9% 1,000 ML IV SCH ×2 (01:07→14:11)
[2017-11-28] MEDS: Neomycin/Polymyxin/Hydrocort Otic Soln BOTTLE AU SCH ×4 (11:00→21:46)
[2017-11-28 14:14] LABS: BASO % 1.2 % (0.0-2.0); EOS # 0.1 K/uL (0.0-0.7); HEMOGLOBIN 7.9 g/dL (12.0-18.0); LYMPH # 1.3 K/uL (1.0-4.3); LYMPH % 49.6 % (20.0-40.0); MEAN CELL VOLUME 97.4 fL (80.0-94.0); MEAN CORPUSCULAR HEMOGLOBIN 34.5 pg (27.0-31.0); MEAN CORPUSCULAR HGB CONC 35.5 g/dL (33.0-37.0); MEAN PLATELET VOLUME 8.1 fL (7.2-11.7); MONO # 0.3 K/uL (0.0-0.8); MONO % 11.8 % (0.0-10.0); NEUT # 0.9 K/uL (1.8-7.0); NEUT % 33.4 % (50.0-75.0); NRBC % 0.1 % (0.0-2.0); RBC 2.28 Mil/uL (4.40-5.90); RED CELL DISTRIBUTION WIDTH 18.8 % (11.5-14.5); WHITE BLOOD COUNT 2.6 K/uL (4.8-10.8)
[2017-11-28 14:51] LABS: ALB/GLOB RATIO 1.3 (1.0-2.1); ALBUMIN 3.7 g/dL (3.5-5.0); ALT/SGPT 33 U/L (21-72); AST/SGOT 48 U/L (17-59); BLOOD UREA NITROGEN 9 mg/dL (9-20); CALCIUM 8.1 mg/dl (8.6-10.4); GFR AFRICAN-AMERICAN > 60; GFR NON-AFRICAN AMERICAN > 60
--- NOTE | 2017-11-28 17:15 | CP.PCM.PN ---
Subjective - Date & Time of Evaluation Date of Evaluation: 11/28/17 Time of Evaluation: 07:50 - Subjective Subjective: Sodium went down Follow-up with Dr. Donna Whitlocklocycline 300 twice daily If needed will start the patient on 3% versus tolvaptan Patient on the salt tablet 1 g twice a day Continue as ordered CBC CMP tomorrow morning Objective - Vital Signs/Intake and Output Vital Signs (last 24 hours): Temp Pulse Resp BP Pulse Ox 97.7 F 74 20 131/70 99 11/28/17 15:15 11/28/17 15:15 11/28/17 15:15 11/28/17 15:15 11/28/17 15:15 Intake and Output: 11/28/17 11/28/17 06:59 18:59 Intake Total 1650 480 Output Total 500 600 Balance 1150 -120 - Medications Medications: Current Medications Alprazolam (Xanax) 0.5 mg PO Q12 [facility] Last Admin: 11/28/17 10:55 Dose: 0.5 mg Aspirin (Ecotrin) 81 mg PO DAILY [facility] Last Admin: 11/28/17 11:00 Dose: 81 mg Clopidogrel Bisulfate (Plavix) 75 mg PO DAILY [facility] Last Admin: 11/28/17 11:00 Dose: 75 mg Demeclocycline HCl (Declomycin) 300 mg PO BID [facility] Last Admin: 11/28/17 11:00 Dose: 300 mg Ergocalciferol (Drisdol 50,000 Intl Units Cap) 1 cap PO Q7D [facility] Last Admin: 11/27/17 09:53 Dose: 1 cap Famotidine (Pepcid) 20 mg PO DAILY [facility] Last Admin: 11/28/17 11:00 Dose: 20 mg Fentanyl (Duragesic) 1 patch TD Q72H [facility] Last Admin: 11/27/17 09:52 Dose: 1 patch Ferrous Sulfate (Feosol) 325 mg PO DAILY [facility] Last Admin: 11/28/17 11:00 Dose: 325 mg Ceftriaxone Sodium 1 gm/ (Sodium Chloride) 100 mls @ 100 mls/hr IVPB Q24H [facility] PRN Reason: Protocol Last Admin: 11/28/17 16:28 Dose: 100 mls/hr Meclizine HCl (Antivert) 25 mg PO Q8 [facility] Last Admin: 11/28/17 14:53 Dose: 25 mg Neomycin/Polymyxin/Hydrocortisone (Cortisporin Otic Soln) 4 drop AU QID [facility] Last Admin: 11/28/17 14:53 Dose: 4 drop Rosuvastatin Calcium (Crestor) 20 mg PO HS [facility] Last Admin: 11/27/17 21:24 Dose: 20 mg Sodium Chloride (Sodium Chloride Tab) 1 gm PO BID [facility] Last Admin: 11/28/17 10:55 Dose: 1 gm Tramadol HCl (Ultram) 50 mg PO TID PRN PRN Reason: Pain, severe (8-10) Last Admin: 11/27/17 00:22 Dose: 50 mg - Labs Labs: 11/28/17 14:02 11/28/17 14:02 - Constitutional Appears: Well - Head Exam Head Exam: ATRAUMATIC, NORMAL INSPECTION, NORMOCEPHALIC - Eye Exam Eye Exam: EOMI, Normal appearance, PERRL Pupil Exam: NORMAL ACCOMODATION, PERRL - ENT Exam ENT Exam: Mucous Membranes Moist, Normal Exam - Neck Exam Neck Exam: Full ROM, Normal Inspection. absent: Lymphadenopathy - Respiratory Exam Respiratory Exam: Decreased Breath Sounds - Cardiovascular Exam Cardiovascular Exam: REGULAR RHYTHM, +S1, +S2 - GI/Abdominal Exam GI & Abdominal Exam: Soft, Diminished Bowel Sounds - Rectal Exam Rectal Exam: Deferred Assessment and Plan (1) Anemia Status: Acute (2) Dizziness Status: Acute (3) Hyponatremia Status: Acute (4) Otitis media Status: Acute (5) Pancytopenia Status: Acute (6) Small cell lung cancer Status: Acute (7) Abdominal pain Status: Acute (8) Electrolyte imbalance Status: Acute (9) Hepatomegaly Status: Acute (10) Hiccups Status: Acute (11) Hyponatremia with decreased serum osmolality Status: Acute (12) Intractable hiccups Status: Acute (13) Leg cramps Status: Acute (14) Leukopenia Status: Acute (15) Metastatic cancer to liver Status: Acute (16) SIADH (syndrome of inappropriate ADH production) Status: Acute (17) Thrombocytopenia Status: Acute
--- NOTE | 2017-11-28 18:11 | CP.PCM.PN ---
Subjective - Date & Time of Evaluation Date of Evaluation: 11/28/17 Time of Evaluation: 16:20 - Subjective Subjective: Feeling better for PRBC transfusion today. Objective - Vital Signs/Intake and Output Vital Signs (last 24 hours): Temp Pulse Resp BP Pulse Ox 97.7 F 74 20 131/70 99 11/28/17 15:15 11/28/17 15:15 11/28/17 15:15 11/28/17 15:15 11/28/17 15:15 Intake and Output: 11/28/17 11/28/17 06:59 18:59 Intake Total 1650 480 Output Total 500 600 Balance 1150 -120 - Medications Medications: Current Medications Alprazolam (Xanax) 0.5 mg PO Q12 [facility] Last Admin: 11/28/17 10:55 Dose: 0.5 mg Aspirin (Ecotrin) 81 mg PO DAILY [facility] Last Admin: 11/28/17 11:00 Dose: 81 mg Clopidogrel Bisulfate (Plavix) 75 mg PO DAILY [facility] Last Admin: 11/28/17 11:00 Dose: 75 mg Demeclocycline HCl (Declomycin) 300 mg PO BID [facility] Last Admin: 11/28/17 11:00 Dose: 300 mg Ergocalciferol (Drisdol 50,000 Intl Units Cap) 1 cap PO Q7D [facility] Last Admin: 11/27/17 09:53 Dose: 1 cap Famotidine (Pepcid) 20 mg PO DAILY [facility] Last Admin: 11/28/17 11:00 Dose: 20 mg Fentanyl (Duragesic) 1 patch TD Q72H [facility] Last Admin: 11/27/17 09:52 Dose: 1 patch Ferrous Sulfate (Feosol) 325 mg PO DAILY [facility] Last Admin: 11/28/17 11:00 Dose: 325 mg Ceftriaxone Sodium 1 gm/ (Sodium Chloride) 100 mls @ 100 mls/hr IVPB Q24H [facility] PRN Reason: Protocol Last Admin: 11/28/17 16:28 Dose: 100 mls/hr Meclizine HCl (Antivert) 25 mg PO Q8 [facility] Last Admin: 11/28/17 14:53 Dose: 25 mg Neomycin/Polymyxin/Hydrocortisone (Cortisporin Otic Soln) 4 drop AU QID [facility] Last Admin: 11/28/17 17:56 Dose: 4 drop Rosuvastatin Calcium (Crestor) 20 mg PO HS [facility] Last Admin: 11/27/17 21:24 Dose: 20 mg Sodium Chloride (Sodium Chloride Tab) 1 gm PO BID [facility] Last Admin: 11/28/17 17:54 Dose: 1 gm Tramadol HCl (Ultram) 50 mg PO TID PRN PRN Reason: Pain, severe (8-10) Last Admin: 11/27/17 00:22 Dose: 50 mg - Labs Labs: 11/28/17 14:02 11/28/17 14:02 - Head Exam Head Exam: ATRAUMATIC - Eye Exam Eye Exam: Normal appearance - ENT Exam ENT Exam: Mucous Membranes Dry - Respiratory Exam Respiratory Exam: NORMAL BREATHING PATTERN - Cardiovascular Exam Cardiovascular Exam: +S2 - GI/Abdominal Exam GI & Abdominal Exam: Normal Bowel Sounds Assessment and Plan (1) Dizziness Assessment & Plan: improving MRI findings noted; repeat MRI in 4 weeks Status: Acute (2) Pancytopenia Assessment & Plan: secondary to chemotherapy for 1U PRBC today Status: Acute (3) Small cell lung cancer Assessment & Plan: stage IV repeat MRI brain in 4 weeks ?brain mets outpatient chemotherapy Status: Acute
[2017-11-29 07:44] LABS: EOS # 0.1 K/uL (0.0-0.7); EOS % 3.9 % (0.0-4.0); HEMOGLOBIN 9.4 g/dL (12.0-18.0); LYMPH # 1.6 K/uL (1.0-4.3); LYMPH % 53.8 % (20.0-40.0); MEAN CORPUSCULAR HEMOGLOBIN 32.5 pg (27.0-31.0); MEAN PLATELET VOLUME 8.1 fL (7.2-11.7); MONO # 0.4 K/uL (0.0-0.8); MONO % 13.6 % (0.0-10.0); NEUT # 0.8 K/uL (1.8-7.0); NEUT % 27.7 % (50.0-75.0); NRBC % 0.2 % (0.0-2.0); RBC 2.9 Mil/uL (4.40-5.90); RED CELL DISTRIBUTION WIDTH 24.1 % (11.5-14.5)
[2017-11-29 07:46] LABS: MEAN CELL VOLUME 92.9 fL (80.0-94.0)
[2017-11-29 08:18] LABS: ALB/GLOB RATIO 1.2 (1.0-2.1); ALBUMIN 3.8 g/dL (3.5-5.0); ALT/SGPT 33 U/L (21-72); AST/SGOT 54 U/L (17-59); BLOOD UREA NITROGEN 13 mg/dL (9-20); CALCIUM 8.4 mg/dl (8.6-10.4); GFR AFRICAN-AMERICAN > 60; GFR NON-AFRICAN AMERICAN > 60
[2017-11-29] MEDS: Neomycin/Polymyxin/Hydrocort Otic Soln BOTTLE AU SCH ×4 (10:51→21:12)
--- NOTE | 2017-11-29 18:32 | CP.PCM.PN ---
Subjective - Date & Time of Evaluation Date of Evaluation: 11/29/17 Time of Evaluation: 07:50 - Subjective Subjective: clinically same Objective - Vital Signs/Intake and Output Vital Signs (last 24 hours): Temp Pulse Resp BP Pulse Ox 98.5 F 81 20 106/63 97 11/29/17 15:15 11/29/17 15:15 11/29/17 15:15 11/29/17 15:15 11/29/17 15:15 Intake and Output: 11/29/17 11/29/17 06:59 18:59 Intake Total 1230 700 Output Total 450 Balance 780 700 - Medications Medications: Current Medications Alprazolam (Xanax) 0.5 mg PO Q12 [facility] Last Admin: 11/29/17 10:50 Dose: 0.5 mg Aspirin (Ecotrin) 81 mg PO DAILY [facility] Last Admin: 11/29/17 10:50 Dose: 81 mg Clopidogrel Bisulfate (Plavix) 75 mg PO DAILY [facility] Last Admin: 11/29/17 10:50 Dose: 75 mg Demeclocycline HCl (Declomycin) 300 mg PO BID [facility] Last Admin: 11/29/17 17:28 Dose: 300 mg Ergocalciferol (Drisdol 50,000 Intl Units Cap) 1 cap PO Q7D [facility] Last Admin: 11/27/17 09:53 Dose: 1 cap Famotidine (Pepcid) 20 mg PO DAILY [facility] Last Admin: 11/29/17 10:51 Dose: 20 mg Fentanyl (Duragesic) 1 patch TD Q72H [facility] Last Admin: 11/27/17 09:52 Dose: 1 patch Ferrous Sulfate (Feosol) 325 mg PO DAILY [facility] Last Admin: 11/29/17 10:51 Dose: 325 mg Ceftriaxone Sodium 1 gm/ (Sodium Chloride) 100 mls @ 100 mls/hr IVPB Q24H [facility] PRN Reason: Protocol Last Admin: 11/28/17 16:28 Dose: 100 mls/hr Meclizine HCl (Antivert) 25 mg PO Q8 [facility] Last Admin: 11/29/17 15:00 Dose: 25 mg Neomycin/Polymyxin/Hydrocortisone (Cortisporin Otic Soln) 4 drop AU QID [facility] Last Admin: 11/29/17 17:29 Dose: 4 drop Rosuvastatin Calcium (Crestor) 20 mg PO HS [facility] Last Admin: 11/28/17 21:47 Dose: 20 mg Sodium Chloride (Sodium Chloride Tab) 1 gm PO BID [facility] Last Admin: 11/29/17 10:59 Dose: 1 gm Tramadol HCl (Ultram) 50 mg PO TID PRN PRN Reason: Pain, severe (8-10) Last Admin: 11/27/17 00:22 Dose: 50 mg - Labs Labs: 11/29/17 07:22 11/29/17 07:22 - Constitutional Appears: Well - Head Exam Head Exam: ATRAUMATIC, NORMAL INSPECTION, NORMOCEPHALIC - Eye Exam Eye Exam: EOMI, Normal appearance, PERRL Pupil Exam: NORMAL ACCOMODATION, PERRL - ENT Exam ENT Exam: Mucous Membranes Moist, Normal Exam - Neck Exam Neck Exam: Full ROM, Normal Inspection. absent: Lymphadenopathy - Respiratory Exam Respiratory Exam: Decreased Breath Sounds - Cardiovascular Exam Cardiovascular Exam: REGULAR RHYTHM, +S1, +S2 - GI/Abdominal Exam GI & Abdominal Exam: Soft, Diminished Bowel Sounds - Rectal Exam Rectal Exam: Deferred Assessment and Plan (1) Anemia Status: Acute (2) Dizziness Status: Acute (3) Hyponatremia Status: Acute (4) Otitis media Status: Acute (5) Pancytopenia Status: Acute (6) Small cell lung cancer Status: Acute (7) Abdominal pain Status: Acute (8) Electrolyte imbalance Status: Acute (9) Hepatomegaly Status: Acute (10) Hiccups Status: Acute (11) Hyponatremia with decreased serum osmolality Status: Acute (12) Intractable hiccups Status: Acute (13) Leg cramps Status: Acute (14) Leukopenia Status: Acute (15) Metastatic cancer to liver Status: Acute (16) SIADH (syndrome of inappropriate ADH production) Status: Acute (17) Thrombocytopenia Status: Acute
[2017-11-30 06:51] LABS: BLOOD UREA NITROGEN 11 mg/dL (9-20); CALCIUM 8.4 mg/dl (8.6-10.4); GFR AFRICAN-AMERICAN > 60; GFR NON-AFRICAN AMERICAN > 60
[2017-11-30] MEDS: Neomycin/Polymyxin/Hydrocort Otic Soln BOTTLE AU SCH ×4 (11:26→21:40)
--- NOTE | 2017-11-30 14:40 | CP.PCM.PN ---
Subjective - Date & Time of Evaluation Date of Evaluation: 11/30/17 Time of Evaluation: 07:40 - Subjective Subjective: clinically same Objective - Vital Signs/Intake and Output Vital Signs (last 24 hours): Temp Pulse Resp BP Pulse Ox 98.2 F 86 20 105/61 96 11/30/17 07:30 11/30/17 07:30 11/30/17 07:30 11/30/17 07:30 11/30/17 07:30 Intake and Output: 11/30/17 11/30/17 06:59 18:59 Intake Total 300 240 Output Total 600 Balance -300 240 - Medications Medications: Current Medications Alprazolam (Xanax) 0.5 mg PO Q12 [facility] Last Admin: 11/30/17 11:27 Dose: 0.5 mg Aspirin (Ecotrin) 81 mg PO DAILY [facility] Last Admin: 11/30/17 11:26 Dose: 81 mg Clopidogrel Bisulfate (Plavix) 75 mg PO DAILY [facility] Last Admin: 11/30/17 11:25 Dose: 75 mg Demeclocycline HCl (Declomycin) 300 mg PO BID [facility] Last Admin: 11/30/17 11:26 Dose: 300 mg Ergocalciferol (Drisdol 50,000 Intl Units Cap) 1 cap PO Q7D [facility] Last Admin: 11/27/17 09:53 Dose: 1 cap Famotidine (Pepcid) 20 mg PO DAILY [facility] Last Admin: 11/30/17 11:25 Dose: 20 mg Fentanyl (Duragesic) 1 patch TD Q72H [facility] Last Admin: 11/30/17 11:25 Dose: 1 patch Ferrous Sulfate (Feosol) 325 mg PO DAILY [facility] Last Admin: 11/30/17 11:25 Dose: 325 mg Ceftriaxone Sodium 1 gm/ (Sodium Chloride) 100 mls @ 100 mls/hr IVPB Q24H [facility] PRN Reason: Protocol Last Admin: 11/29/17 16:00 Dose: 100 mls/hr Meclizine HCl (Antivert) 25 mg PO Q8 [facility] Last Admin: 11/30/17 14:18 Dose: 25 mg Neomycin/Polymyxin/Hydrocortisone (Cortisporin Otic Soln) 4 drop AU QID [facility] Last Admin: 11/30/17 14:14 Dose: 4 drop Rosuvastatin Calcium (Crestor) 20 mg PO HS [facility] Last Admin: 11/29/17 21:12 Dose: 20 mg Sodium Chloride (Sodium Chloride Tab) 1 gm PO BID [facility] Last Admin: 11/30/17 11:26 Dose: 1 gm Tramadol HCl (Ultram) 50 mg PO TID PRN PRN Reason: Pain, severe (8-10) Last Admin: 11/27/17 00:22 Dose: 50 mg - Labs Labs: 11/29/17 07:22 11/30/17 06:27 Assessment and Plan (1) Anemia Status: Acute (2) Dizziness Status: Acute (3) Hyponatremia Status: Acute (4) Otitis media Status: Acute (5) Pancytopenia Status: Acute (6) Small cell lung cancer Status: Acute (7) Abdominal pain Status: Acute (8) Electrolyte imbalance Status: Acute (9) Hepatomegaly Status: Acute (10) Hiccups Status: Acute (11) Hyponatremia with decreased serum osmolality Status: Acute (12) Intractable hiccups Status: Acute (13) Leg cramps Status: Acute (14) Leukopenia Status: Acute (15) Metastatic cancer to liver Status: Acute (16) SIADH (syndrome of inappropriate ADH production) Status: Acute (17) Thrombocytopenia Status: Acute - Assessment and Plan (Free Text) Plan: Sodium is still 124 Potassium is 4.1 Patient is on demeclocycline Patient is also on sodium chloride tablet Continue Rocephin Pain medications Continue meclizine If sodium is more than 127 will discharge the patient's tomorrow
--- NOTE | 2017-11-30 17:48 | CP.PCM.PN ---
Subjective - Date & Time of Evaluation Date of Evaluation: 11/29/17 Time of Evaluation: 12:25 - Subjective Subjective: Feeling better Objective - Vital Signs/Intake and Output Vital Signs (last 24 hours): Temp Pulse Resp BP Pulse Ox 98.2 F 86 20 105/61 96 11/30/17 07:30 11/30/17 07:30 11/30/17 07:30 11/30/17 07:30 11/30/17 07:30 Intake and Output: 11/30/17 11/30/17 06:59 18:59 Intake Total 300 240 Output Total 600 Balance -300 240 - Medications Medications: Current Medications Alprazolam (Xanax) 0.5 mg PO Q12 [facility] Last Admin: 11/30/17 11:27 Dose: 0.5 mg Aspirin (Ecotrin) 81 mg PO DAILY [facility] Last Admin: 11/30/17 11:26 Dose: 81 mg Clopidogrel Bisulfate (Plavix) 75 mg PO DAILY [facility] Last Admin: 11/30/17 11:25 Dose: 75 mg Demeclocycline HCl (Declomycin) 300 mg PO BID [facility] Last Admin: 11/30/17 11:26 Dose: 300 mg Ergocalciferol (Drisdol 50,000 Intl Units Cap) 1 cap PO Q7D [facility] Last Admin: 11/27/17 09:53 Dose: 1 cap Famotidine (Pepcid) 20 mg PO DAILY [facility] Last Admin: 11/30/17 11:25 Dose: 20 mg Fentanyl (Duragesic) 1 patch TD Q72H [facility] Last Admin: 11/30/17 11:25 Dose: 1 patch Ferrous Sulfate (Feosol) 325 mg PO DAILY [facility] Last Admin: 11/30/17 11:25 Dose: 325 mg Ceftriaxone Sodium 1 gm/ (Sodium Chloride) 100 mls @ 100 mls/hr IVPB Q24H [facility] PRN Reason: Protocol Last Admin: 11/30/17 15:39 Dose: 100 mls/hr Meclizine HCl (Antivert) 25 mg PO Q8 [facility] Last Admin: 11/30/17 14:18 Dose: 25 mg Neomycin/Polymyxin/Hydrocortisone (Cortisporin Otic Soln) 4 drop AU QID [facility] Last Admin: 11/30/17 14:14 Dose: 4 drop Rosuvastatin Calcium (Crestor) 20 mg PO HS [facility] Last Admin: 11/29/17 21:12 Dose: 20 mg Sodium Chloride (Sodium Chloride Tab) 1 gm PO BID [facility] Last Admin: 11/30/17 11:26 Dose: 1 gm Tramadol HCl (Ultram) 50 mg PO TID PRN PRN Reason: Pain, severe (8-10) Last Admin: 11/27/17 00:22 Dose: 50 mg - Labs Labs: 11/29/17 07:22 11/30/17 06:27 - Head Exam Head Exam: ATRAUMATIC - Eye Exam Eye Exam: Normal appearance - ENT Exam ENT Exam: Mucous Membranes Dry - Respiratory Exam Respiratory Exam: NORMAL BREATHING PATTERN - Cardiovascular Exam Cardiovascular Exam: +S1, +S2 - GI/Abdominal Exam GI & Abdominal Exam: Normal Bowel Sounds Assessment and Plan (1) Dizziness Assessment & Plan: resolving Status: Acute (2) Pancytopenia Assessment & Plan: secondary to chemotherapy improving Status: Acute (3) Small cell lung cancer Assessment & Plan: stage IV liver mets ?brain mets; repeat MRI 4 weeks outpatient chemotherapy Status: Acute
--- NOTE | 2017-11-30 17:49 | CP.PCM.PN ---
Subjective - Date & Time of Evaluation Date of Evaluation: 11/30/17 Time of Evaluation: 14:00 - Subjective Subjective: Feeling better Objective - Vital Signs/Intake and Output Vital Signs (last 24 hours): Temp Pulse Resp BP Pulse Ox 98.2 F 86 20 105/61 96 11/30/17 07:30 11/30/17 07:30 11/30/17 07:30 11/30/17 07:30 11/30/17 07:30 Intake and Output: 11/30/17 11/30/17 06:59 18:59 Intake Total 300 240 Output Total 600 Balance -300 240 - Medications Medications: Current Medications Alprazolam (Xanax) 0.5 mg PO Q12 [facility] Last Admin: 11/30/17 11:27 Dose: 0.5 mg Aspirin (Ecotrin) 81 mg PO DAILY [facility] Last Admin: 11/30/17 11:26 Dose: 81 mg Clopidogrel Bisulfate (Plavix) 75 mg PO DAILY [facility] Last Admin: 11/30/17 11:25 Dose: 75 mg Demeclocycline HCl (Declomycin) 300 mg PO BID [facility] Last Admin: 11/30/17 11:26 Dose: 300 mg Ergocalciferol (Drisdol 50,000 Intl Units Cap) 1 cap PO Q7D [facility] Last Admin: 11/27/17 09:53 Dose: 1 cap Famotidine (Pepcid) 20 mg PO DAILY [facility] Last Admin: 11/30/17 11:25 Dose: 20 mg Fentanyl (Duragesic) 1 patch TD Q72H [facility] Last Admin: 11/30/17 11:25 Dose: 1 patch Ferrous Sulfate (Feosol) 325 mg PO DAILY [facility] Last Admin: 11/30/17 11:25 Dose: 325 mg Ceftriaxone Sodium 1 gm/ (Sodium Chloride) 100 mls @ 100 mls/hr IVPB Q24H [facility] PRN Reason: Protocol Last Admin: 11/30/17 15:39 Dose: 100 mls/hr Meclizine HCl (Antivert) 25 mg PO Q8 [facility] Last Admin: 11/30/17 14:18 Dose: 25 mg Neomycin/Polymyxin/Hydrocortisone (Cortisporin Otic Soln) 4 drop AU QID [facility] Last Admin: 11/30/17 14:14 Dose: 4 drop Rosuvastatin Calcium (Crestor) 20 mg PO HS [facility] Last Admin: 11/29/17 21:12 Dose: 20 mg Sodium Chloride (Sodium Chloride Tab) 1 gm PO BID [facility] Last Admin: 11/30/17 11:26 Dose: 1 gm Tramadol HCl (Ultram) 50 mg PO TID PRN PRN Reason: Pain, severe (8-10) Last Admin: 11/27/17 00:22 Dose: 50 mg - Labs Labs: 11/29/17 07:22 11/30/17 06:27 - Head Exam Head Exam: ATRAUMATIC - Eye Exam Eye Exam: Normal appearance - ENT Exam ENT Exam: Mucous Membranes Dry - Respiratory Exam Respiratory Exam: NORMAL BREATHING PATTERN - Cardiovascular Exam Cardiovascular Exam: +S1, +S2 - GI/Abdominal Exam GI & Abdominal Exam: Normal Bowel Sounds Assessment and Plan (1) Dizziness Assessment & Plan: resolving Status: Acute (2) Pancytopenia Assessment & Plan: improving secondary to chemotherapy Status: Acute (3) Small cell lung cancer Assessment & Plan: stage IV liver mets ? brain mets; repeat MRI in 4 weeks outpatient chemotherapy Status: Acute
[2017-12-01] MEDS ORDERED: Propofol 10 mg/ml Inj (20 ML) ONE ×2 (10:11→10:28)
[2017-12-01] MEDS ORDERED: Etomidate 20 mg/10ml Inj IV ONE (10:12)
[2017-12-01] MEDS ORDERED: Phenylephrine 10 mg/ml Inj ONE (10:15)
[2017-12-01] MEDS ORDERED: Lidocaine Hydrochloride 5 ML INJ ONE (10:16)
[2017-12-01] MEDS: Neomycin/Polymyxin/Hydrocort Otic Soln BOTTLE AU SCH ×2 (10:21→13:19)
[2017-12-01 12:45] LABS: BLOOD UREA NITROGEN 11 mg/dL (9-20); GFR AFRICAN-AMERICAN > 60; GFR NON-AFRICAN AMERICAN > 60
--- NOTE | 2017-12-01 13:14 | CP.PCM.PN ---
Subjective - Date & Time of Evaluation Date of Evaluation: 12/01/17 Time of Evaluation: 07:40 - Subjective Subjective: clinically same Objective - Vital Signs/Intake and Output Vital Signs (last 24 hours): Temp Pulse Resp BP Pulse Ox 98.2 F 98 H 20 115/70 97 12/01/17 07:56 12/01/17 08:50 12/01/17 07:56 12/01/17 08:50 12/01/17 08:50 Intake and Output: 12/01/17 12/01/17 06:59 18:59 Intake Total 490 Output Total 1 Balance 489 - Medications Medications: Current Medications Alprazolam (Xanax) 0.5 mg PO Q12 [facility] Last Admin: 12/01/17 10:21 Dose: 0.5 mg Aspirin (Ecotrin) 81 mg PO DAILY [facility] Last Admin: 12/01/17 10:21 Dose: 81 mg Clopidogrel Bisulfate (Plavix) 75 mg PO DAILY [facility] Last Admin: 12/01/17 10:21 Dose: 75 mg Demeclocycline HCl (Declomycin) 300 mg PO BID [facility] Last Admin: 12/01/17 10:21 Dose: 300 mg Dexamethasone (Decadron) 2 mg PO BID [facility] Ergocalciferol (Drisdol 50,000 Intl Units Cap) 1 cap PO Q7D [facility] Last Admin: 11/27/17 09:53 Dose: 1 cap Famotidine (Pepcid) 20 mg PO DAILY [facility] Last Admin: 12/01/17 10:21 Dose: 20 mg Ferrous Sulfate (Feosol) 325 mg PO DAILY [facility] Last Admin: 12/01/17 10:21 Dose: 325 mg Ceftriaxone Sodium 1 gm/ (Sodium Chloride) 100 mls @ 100 mls/hr IVPB Q24H [facility] PRN Reason: Protocol Last Admin: 11/30/17 15:39 Dose: 100 mls/hr Meclizine HCl (Antivert) 25 mg PO Q8 [facility] Last Admin: 12/01/17 06:15 Dose: 25 mg Neomycin/Polymyxin/Hydrocortisone (Cortisporin Otic Soln) 4 drop AU QID [facility] Last Admin: 12/01/17 10:21 Dose: 4 drop Rosuvastatin Calcium (Crestor) 20 mg PO HS [facility] Last Admin: 11/30/17 21:40 Dose: 20 mg Sodium Chloride (Sodium Chloride Tab) 1 gm PO BID [facility] Last Admin: 12/01/17 10:21 Dose: 1 gm Tramadol HCl (Ultram) 50 mg PO TID PRN PRN Reason: Pain, severe (8-10) Last Admin: 12/01/17 11:37 Dose: 50 mg - Labs Labs: 11/29/17 07:22 12/01/17 12:15 - Constitutional Appears: Well - Head Exam Head Exam: ATRAUMATIC, NORMAL INSPECTION, NORMOCEPHALIC - Eye Exam Eye Exam: EOMI, Normal appearance, PERRL Pupil Exam: NORMAL ACCOMODATION, PERRL - ENT Exam ENT Exam: Mucous Membranes Moist, Normal Exam - Neck Exam Neck Exam: Full ROM, Normal Inspection. absent: Lymphadenopathy - Respiratory Exam Respiratory Exam: Decreased Breath Sounds - Cardiovascular Exam Cardiovascular Exam: REGULAR RHYTHM, +S1, +S2 - GI/Abdominal Exam GI & Abdominal Exam: Soft, Diminished Bowel Sounds - Rectal Exam Rectal Exam: Deferred Assessment and Plan (1) Anemia Status: Acute (2) Dizziness Status: Acute (3) Hyponatremia Status: Acute (4) Otitis media Status: Acute (5) Pancytopenia Status: Acute (6) Small cell lung cancer Status: Acute (7) Abdominal pain Status: Acute (8) Electrolyte imbalance Status: Acute (9) Hepatomegaly Status: Acute (10) Hiccups Status: Acute (11) Hyponatremia with decreased serum osmolality Status: Acute (12) Intractable hiccups Status: Acute (13) Leg cramps Status: Acute (14) Leukopenia Status: Acute (15) Metastatic cancer to liver Status: Acute (16) SIADH (syndrome of inappropriate ADH production) Status: Acute (17) Thrombocytopenia Status: Acute
--- NOTE | 2017-12-01 13:50 | CP.PCM.PN ---
Subjective - Date & Time of Evaluation Date of Evaluation: 12/01/17 Time of Evaluation: 11:30 - Subjective Subjective: Has episodes of dizziness when ambulating Discussed case with rad onc Dr. Burton, imaging reviewed, no evidence of cerebellar lesion Objective - Vital Signs/Intake and Output Vital Signs (last 24 hours): Temp Pulse Resp BP Pulse Ox 98.2 F 98 H 20 115/70 97 12/01/17 07:56 12/01/17 08:50 12/01/17 07:56 12/01/17 08:50 12/01/17 08:50 Intake and Output: 12/01/17 12/01/17 06:59 18:59 Intake Total 490 Output Total 1 Balance 489 - Medications Medications: Current Medications Alprazolam (Xanax) 0.5 mg PO Q12 [facility] Last Admin: 12/01/17 10:21 Dose: 0.5 mg Aspirin (Ecotrin) 81 mg PO DAILY [facility] Last Admin: 12/01/17 10:21 Dose: 81 mg Clopidogrel Bisulfate (Plavix) 75 mg PO DAILY [facility] Last Admin: 12/01/17 10:21 Dose: 75 mg Demeclocycline HCl (Declomycin) 300 mg PO BID [facility] Last Admin: 12/01/17 10:21 Dose: 300 mg Dexamethasone (Decadron) 2 mg PO BID [facility] Last Admin: 12/01/17 13:19 Dose: 2 mg Ergocalciferol (Drisdol 50,000 Intl Units Cap) 1 cap PO Q7D [facility] Last Admin: 11/27/17 09:53 Dose: 1 cap Famotidine (Pepcid) 20 mg PO DAILY [facility] Last Admin: 12/01/17 10:21 Dose: 20 mg Ferrous Sulfate (Feosol) 325 mg PO DAILY [facility] Last Admin: 12/01/17 10:21 Dose: 325 mg Ceftriaxone Sodium 1 gm/ (Sodium Chloride) 100 mls @ 100 mls/hr IVPB Q24H [facility] PRN Reason: Protocol Last Admin: 11/30/17 15:39 Dose: 100 mls/hr Meclizine HCl (Antivert) 25 mg PO Q8 [facility] Last Admin: 12/01/17 13:19 Dose: 25 mg Neomycin/Polymyxin/Hydrocortisone (Cortisporin Otic Soln) 4 drop AU QID [facility] Last Admin: 12/01/17 13:19 Dose: 4 drop Rosuvastatin Calcium (Crestor) 20 mg PO HS [facility] Last Admin: 11/30/17 21:40 Dose: 20 mg Sodium Chloride (Sodium Chloride Tab) 1 gm PO BID [facility] Last Admin: 12/01/17 10:21 Dose: 1 gm Tramadol HCl (Ultram) 50 mg PO TID PRN PRN Reason: Pain, severe (8-10) Last Admin: 12/01/17 11:37 Dose: 50 mg - Labs Labs: 11/29/17 07:22 12/01/17 12:15 - Head Exam Head Exam: ATRAUMATIC - Eye Exam Eye Exam: Normal appearance - ENT Exam ENT Exam: Mucous Membranes Dry - Respiratory Exam Respiratory Exam: NORMAL BREATHING PATTERN - Cardiovascular Exam Cardiovascular Exam: +S1, +S2 - GI/Abdominal Exam GI & Abdominal Exam: Normal Bowel Sounds Assessment and Plan (1) Dizziness Assessment & Plan: on antibiotics antivert Status: Acute (2) Pancytopenia Assessment & Plan: secondary to chemotherapy Status: Acute (3) Small cell lung cancer Assessment & Plan: stage IV liver metastasis ? brain mets; repeat MRI in 4 weeks, discussed with rad onc, no cerebellar lesions will start PO steroids to see if helps with dizziness Status: Acute
--- NOTE | 2017-12-01 16:22 | CP.PCM.PN ---
Subjective - Date & Time of Evaluation Date of Evaluation: 12/01/17 Time of Evaluation: 16:22 - Subjective Subjective: awake, alert, periods of confusion, ambulatory, no distress. Objective - Vital Signs/Intake and Output Vital Signs (last 24 hours): Temp Pulse Resp BP Pulse Ox 98.2 F 98 H 20 115/70 97 12/01/17 07:56 12/01/17 08:50 12/01/17 07:56 12/01/17 08:50 12/01/17 08:50 Intake and Output: 12/01/17 12/01/17 06:59 18:59 Intake Total 490 480 Output Total 1 Balance 489 480 - Medications Medications: Current Medications Alprazolam (Xanax) 0.5 mg PO Q12 [facility] Last Admin: 12/01/17 10:21 Dose: 0.5 mg Aspirin (Ecotrin) 81 mg PO DAILY [facility] Last Admin: 12/01/17 10:21 Dose: 81 mg Clopidogrel Bisulfate (Plavix) 75 mg PO DAILY [facility] Last Admin: 12/01/17 10:21 Dose: 75 mg Demeclocycline HCl (Declomycin) 300 mg PO BID [facility] Last Admin: 12/01/17 10:21 Dose: 300 mg Dexamethasone (Decadron) 2 mg PO BID [facility] Last Admin: 12/01/17 13:19 Dose: 2 mg Ergocalciferol (Drisdol 50,000 Intl Units Cap) 1 cap PO Q7D [facility] Last Admin: 11/27/17 09:53 Dose: 1 cap Famotidine (Pepcid) 20 mg PO DAILY [facility] Last Admin: 12/01/17 10:21 Dose: 20 mg Ferrous Sulfate (Feosol) 325 mg PO DAILY [facility] Last Admin: 12/01/17 10:21 Dose: 325 mg Ceftriaxone Sodium 1 gm/ (Sodium Chloride) 100 mls @ 100 mls/hr IVPB Q24H [facility] PRN Reason: Protocol Last Admin: 11/30/17 15:39 Dose: 100 mls/hr Meclizine HCl (Antivert) 25 mg PO Q8 [facility] Last Admin: 12/01/17 13:19 Dose: 25 mg Neomycin/Polymyxin/Hydrocortisone (Cortisporin Otic Soln) 4 drop AU QID [facility] Last Admin: 12/01/17 13:19 Dose: 4 drop Rosuvastatin Calcium (Crestor) 20 mg PO HS [facility] Last Admin: 11/30/17 21:40 Dose: 20 mg Sodium Chloride (Sodium Chloride Tab) 1 gm PO BID [facility] Last Admin: 12/01/17 10:21 Dose: 1 gm Tramadol HCl (Ultram) 50 mg PO TID PRN PRN Reason: Pain, severe (8-10) Last Admin: 12/01/17 11:37 Dose: 50 mg - Labs Labs: 11/29/17 07:22 12/01/17 12:15 Assessment and Plan - Assessment and Plan (Free Text) Assessment: Patient admitted with hyponatremia and otitis media, seen and examined. Alert, awake, denies ear pain or acute dizziness. Still has some on and off dizziness. Steroids added by DR Bae for trial. Discussed with DR Bae and DR Debo Mccartney, plan to discharge home today on po augmentin and ear drops. Advised to follow up with PMD and the oncologists in 1 week. Daughter will pick him up this evening.
[2017-12-01 16:24] VITALS: BP 101/57; PULSE 78; TEMP 98.1; O2SAT 95
== END 2017-12-01 16:35 | disposition home or self-care (01) | DRG 643 ==
LOC: C.ER 09:31 → C.9E 12:03 → C.3T 14:01 → OBSVTOIN 11-28 14:32
PROVIDERS: ADMIT Internal Medicine Nephrology; ATTEND Internal Medicine Nephrology
DX: E22.2 Syndrome of inappropriate secretion of antidiuretic hormone (principal); D61.810 Antineoplastic chemotherapy induced pancytopenia; C78.7 Secondary malignant neoplasm of liver and intrahepatic bile duct; C34.90 Malignant neoplasm of unspecified part of unspecified bronchus or lung; R42 Dizziness and giddiness; H66.91 Otitis media, unspecified, right ear; I10 Essential (primary) hypertension; I25.10 Atherosclerotic heart disease of native coronary artery without angina pectoris; K21.9 Gastro-esophageal reflux disease without esophagitis; E78.5 Hyperlipidemia, unspecified; E78.00 Pure hypercholesterolemia, unspecified; J39.2 Other diseases of pharynx; T45.1X5A Adverse effect of antineoplastic and immunosuppressive drugs, initial encounter; Z87.891 Personal history of nicotine dependence; Z95.1 Presence of aortocoronary bypass graft

== ENCOUNTER 2018-03-13 11:39 | Emergency (ER) | payer MEDICARE, OTHER ==
[2018-03-13 11:41] VITALS: BMI 22.3
[2018-03-13 11:45] VITALS: TEMP 98.9
[2018-03-13] MEDS ORDERED: Sodium Chloride 0.9% 1,000 ML IV ONE (12:20)
[2018-03-13] MEDS ORDERED: Morphine 4 MG/ML VIAL IV STA (12:20)
[2018-03-13] MEDS ORDERED: Morphine 4 MG/ML VIAL ONE (12:36)
[2018-03-13] MEDS ORDERED: Sodium Chloride 0.9% 1,000 ML ONE (12:37)
[2018-03-13 12:45] VITALS: O2SAT 98
[2018-03-13 12:45] LABS: BASO % 0.6 % (0.0-2.0); HEMOGLOBIN 8.6 g/dL (12.0-18.0); LYMPH # 0.9 K/uL (1.0-4.3); LYMPH % 16.5 % (20.0-40.0); MEAN CORPUSCULAR HEMOGLOBIN 33.6 pg (27.0-31.0); MEAN CORPUSCULAR HGB CONC 35.5 g/dL (33.0-37.0); MEAN PLATELET VOLUME 7.6 fL (7.2-11.7); MONO # 0.8 K/uL (0.0-0.8); MONO % 13.8 % (0.0-10.0); NEUT # 3.8 K/uL (1.8-7.0); NEUT % 69.1 % (50.0-75.0); NRBC % 0.1 % (0.0-2.0); RBC 2.56 Mil/uL (4.40-5.90); RED CELL DISTRIBUTION WIDTH 21.9 % (11.5-14.5); WHITE BLOOD COUNT 5.5 K/uL (4.8-10.8)
[2018-03-13 12:46] LABS: MEAN CELL VOLUME 94.5 fL (80.0-94.0)
[2018-03-13 13:05] LABS: ALB/GLOB RATIO 1.4 (1.0-2.1); ALT/SGPT 40 U/L (21-72); AST/SGOT 77 U/L (17-59); BLOOD UREA NITROGEN 20 mg/dL (9-20); CALCIUM 8.8 mg/dl (8.6-10.4); GFR AFRICAN-AMERICAN > 60; GFR NON-AFRICAN AMERICAN > 60
[2018-03-13 13:14] LABS: B-TYPE NATRIURETIC PEPTIDE 246 pg/mL (0-900)
--- NOTE | 2018-03-13 14:41 | C.PDOC ---
History Of Present Illness 62 y/o male with PMHx of Lung cancer with mets presents to ED for complaints of abdominal pain that began 3 days ago. Patient states he is on fentanyl patch for pain but pain does not improve. Patient's infusion for anemia is 7.6. Patient also reports that he takes lactulose twice a day to avoid constipation but he took only one yesterday and did not take any today. Time Seen by Provider: 03/13/18 12:07 Chief Complaint (Nursing): Abdominal Pain History Per: Patient History/Exam Limitations: no limitations Onset/Duration Of Symptoms: Days (3) Current Symptoms Are (Timing): Still Present Location Of Pain/Discomfort: Diffuse Radiation Of Pain To:: None Quality Of Discomfort: Unable To Describe Associated Symptoms: denies: Fever, Chills, Nausea, Vomiting, Diarrhea, Urinary Symptoms Exacerbating Factors: None Alleviating Factors: None Last Bowel Movement: Today Recent travel outside of the [place]: No Past Medical History Reviewed: Historical Data, Nursing Documentation, Vital Signs Vital Signs: Last Vital Signs Temp 98.9 F 03/13/18 11:41 Pulse 76 03/13/18 14:29 Resp 15 03/13/18 14:29 BP 119/60 03/13/18 14:29 Pulse Ox 98 03/13/18 16:26 - Medical History PMH: Anemia, Anxiety, Arthritis (HX OF B/L HIP PAIN L>R), Gastritis, HTN, Hypercholesterolemia, Hyperlipidemia, Malignancy (metastatic lung CA) Surgical History: CABG - [facility] Procedures EXCISION OF LIVER, PERCUTANEOUS APPROACH, DIAGNOSTIC (07/01/17) INTRODUCTION OF SERUM/TOX/VACCINE INTO MUSCLE, PERC APPROACH (08/25/17) Family History: States: Unknown Family Hx - Social History Hx Alcohol Use: Yes (former) Hx Substance Use: No - Immunization History Hx Tetanus Toxoid Vaccination: No Hx Influenza Vaccination: No Hx Pneumococcal Vaccination: No Review Of Systems Constitutional: Negative for: Fever, Chills Gastrointestinal: Positive for: Abdominal Pain. Negative for: Nausea, Vomiting , Diarrhea Skin: Negative for: Rash Neurological: Negative for: Weakness, Numbness Physical Exam - Physical Exam Appears: Non-toxic, No Acute Distress Skin: Warm, Dry, Pale, No Rash Head: Atraumatic, Normacephalic Eye(s): bilateral: Conjunctiva Pale Nose: Normal, No Discharge Oral Mucosa: Moist Neck: Supple Chest: Symmetrical, No Tenderness Cardiovascular: Rhythm Regular, No Murmur Respiratory: Normal Breath Sounds, No Decreased Breath Sounds, No Rales, No Rhonchi, No Wheezing Gastrointestinal/Abdominal: Soft, No Tenderness, Distention (And tympanic more on the left side ) Extremity: Normal ROM, No Tenderness, No Pedal Edema, No Deformity, No Swelling Extremity: Bilateral: Atraumatic, Normal Color And Temperature, Normal ROM Neurological/Psych: Oriented x3 (Awake and alert), Normal Speech, Other (No focal deficits ) Gait: Steady ED Course And Treatment - Laboratory Results Result Diagrams: 03/13/18 12:33 03/13/18 12:33 Lab Interpretation: Normal (hgb IMPROVED from 7.6 prior to 1 u PRBC's earlier this week) ECG: Interpreted By Me ECG Rhythm: Sinus Rhythm ECG Interpretation: Normal Rate From EC O2 Sat by Pulse Oximetry: 98 (RA) Pulse Ox Interpretation: Normal - Radiology CXR: Interpreted by Me CXR Interpretation: Yes: No Acute Disease - Other Rad abd x 2 X-Ray: Interpreted by Me (+FOS) - CT Scan/US Abdomen/ Pelvis CT Other Rad Studies (CT/US): Read By Radiologist, Radiology Report Reviewed CT/US Interpretation: IMPRESSION: 1. Moderate fecal retention in the colon. 2. Appendix grossly preserved. 4 millimeter appendicolith at the tip of the appendix. 3. Innumerable pulmonary nodules in both lungs consistent with metastatic disease. 4. Innumerable low-attenuation masses throughout the liver consistent with hepatic metastatic disease. 5. Several enlarged lino hepatis lymph nodes are identified. 6. Innumerable sclerotic metastases throughout the visualized osseous structures. Lytic metastases of the right iliac wing and left iliac bone. 7. Underdistended and or mildly thickened urinary bladder. 8. Prominent prostate with calcifications. 9. 1.1 centimeter low-attenuation lesion in the lower pole of the right kidney demonstrating a Hounsfield unit attenuation of 30, indeterminate. Abdomen obstructive series CT Other Rad Studies (CT/US): Read By Radiologist, Radiology Report Reviewed CT/US Interpretation: IMPRESSION: Constipation without fecal impaction/ obstruction. Reevaluation Time: 16:24 Reassessment Condition: Improved Medical Decision Making Medical Decision Making: Administered Morphine and IV fluids. Ordered blood woek, Obstructive series X-ray, urinalysis, EKG, and CT abd& Pelvis. acute on chronic constipation due to fentanyl patch for metastatic lung CA chronic pain and poor complaince with laxative/lactulose regimen no acute issues on labs nor CT hgb IMPROVED s/p transfusion this week, stable hgb 8.6 OK to d/c home with agressive laxatives per PMD Disposition Doctor Will See Patient In The: Office Counseled Patient/Family Regarding: Studies Performed, Diagnosis - Disposition Referrals: Ko Mccartney MD [Staff Provider] - Disposition: HOME/ ROUTINE Disposition Time: 16:26 Condition: GOOD Additional Instructions: anabella rosemarie botella de Citrato de MAgnesio (purgante poderoso) AHORA y re-evalua clarke molestia del abdomen despues de usar el adriana 2-3 veces SIGUE clarke Lactulose DOS veces al reji SIN FALTA! El Patch de Fentanyl prov[place] estrenemiento muy kevin! Sigue con Dr. Debo Mccartney y Dr. Bae. Instructions: Constipation, Adult (DC), Gas and Bloating (ED) Forms: [employer] (Yakut) Print Language: TURKMEN - Clinical Impression Clinical Impression: Abdominal colic - Scribe Statement The provider has reviewed the documentation as recorded by the Scribe Kinza Cohen All medical record entries made by the Scribe were at my direction and personally dictated by me. I have reviewed the chart and agree that the record accurately reflects my personal performance of the history, physical exam, medical decision making, and the department course for this patient. I have also personally directed, reviewed, and agree with the discharge instructions and disposition.
[2018-03-13 14:47] LABS: SQUAMOUS EPITHIAL < 1 /hpf (0-5); URINE BILIRUBIN NEGATIVE (NEGATIVE); URINE BLOOD NEGATIVE (NEGATIVE); URINE CLARITY Clear (Clear); URINE COLOR Yellow (YELLOW); URINE GLUCOSE (UA) NORMAL (Normal); URINE LEUKOCYTE ESTERASE NEG Leu/uL (Negative); URINE PROTEIN NEGATIVE (NEGATIVE); URINE UROBILINOGEN NORMAL mg/dL (0.2-1.0)
--- NOTE | 2018-03-13 16:15 | CT ---
PROCEDURE: CT Abdomen and Pelvis without intravenous contrast HISTORY: Abdominal pain. Bowel obstruction. COMPARISON: CT chest abdomen and pelvis dated 11/06/2017 TECHNIQUE: Multiple contiguous axial images were performed through the abdomen and pelvis with the use of intravenous contrast. Subsequently, sagittal and coronal reformatted images were obtained. Radiation dose: Total exam DLP = 281 mGy-cm. This CT exam was performed using one or more of the following dose reduction techniques: Automated exposure control, adjustment of the mA and/or kV according to patient size, and/or use of iterative reconstruction technique. FINDINGS: LOWER THORAX: Innumerable pulmonary nodules in both lungs consistent with metastatic disease. LIVER: Innumerable low-attenuation masses throughout the liver consistent with hepatic metastatic disease. Several enlarged lino hepatis lymph nodes are identified. GALLBLADDER AND BILE DUCTS: Unremarkable. PANCREAS: Unremarkable. No gross lesion or ductal dilatation. SPLEEN: Unremarkable. ADRENALS: Unremarkable. No mass. KIDNEYS AND URETERS: 5 millimeter hypodensity in the upper pole of the right kidney, too small to adequately characterize. Additional punctate hypodensities throughout the right kidney also too small to adequately characterize. 1.1 centimeter low-attenuation lesion in the lower pole of the right kidney demonstrating a Hounsfield unit attenuation of 30, indeterminate. VASCULATURE: Unremarkable. No aortic aneurysm. BOWEL: Unremarkable. No obstruction. No gross mural thickening. Moderate fecal retention in the colon. APPENDIX: Appendix grossly preserved. 4 millimeter appendicolith at the tip of the appendix. PERITONEUM: Unremarkable. No free fluid. No free air. LYMPH NODES: Prominent lymph nodes in the lino hepatis. BLADDER: Underdistended and or mildly thickened urinary bladder. REPRODUCTIVE: Prominent prostate with calcifications. BONES: Innumerable sclerotic metastases throughout the visualized osseous structures. Lytic metastases of the right iliac wing and left iliac bone. OTHER FINDINGS: Calcification and plaque within the aorta. Few shotty para-aortic and mesenteric lymph nodes. IMPRESSION: 1. Moderate fecal retention in the colon. 2. Appendix grossly preserved. 4 millimeter appendicolith at the tip of the appendix. 3. Innumerable pulmonary nodules in both lungs consistent with metastatic disease. 4. Innumerable low-attenuation masses throughout the liver consistent with hepatic metastatic disease. 5. Several enlarged lino hepatis lymph nodes are identified. 6. Innumerable sclerotic metastases throughout the visualized osseous structures. Lytic metastases of the right iliac wing and left iliac bone. 7. Underdistended and or mildly thickened urinary bladder. 8. Prominent prostate with calcifications. 9. 1.1 centimeter low-attenuation lesion in the lower pole of the right kidney demonstrating a Hounsfield unit attenuation of 30, indeterminate.
--- NOTE | 2018-03-13 16:18 | RAD ---
PROCEDURE: Radiographs of the chest and abdomen (obstructive series) HISTORY: Abdominal pain , Fentanyl for CA pain COMPARISON: No prior. TECHNIQUE: AP radiograph of the chest, with upright and supine radiographs of the abdomen. FINDINGS: CHEST: Lungs: Clear. Cardiovascular: Normal size heart. No pulmonary vascular congestion. Pleura: No pleural fluid. No pneumothorax. Other findings: None. ABDOMEN AND PELVIS: Bowel: Constipation without fecal impaction or obstruction. Free air: None. Bones: Unremarkable. Other findings: None. IMPRESSION: Constipation without fecal impaction/ obstruction. Concordant results with the preliminary interpretation rendered by the emergency department physician procedure.
[2018-03-13 16:56] VITALS: BP 117/57; PULSE 75; RESP 16
--- NOTE | 2018-03-14 22:32 | CARD ---
APPROVED REPORT EKG Measurement Heart [id number] <Conclusion> Normal sinus rhythm Septal infarct, age undetermined Abnormal ECG
== END 2018-03-13 16:57 | disposition home or self-care (01) ==
LOC: C.ER 11:39
DX: R10.84 Generalized abdominal pain (principal); E78.00 Pure hypercholesterolemia, unspecified; I10 Essential (primary) hypertension; E78.5 Hyperlipidemia, unspecified
CPT/HCPCS: 74022; 74177; 80053; 81001; 83880; 84484; 85025; 93005; 96361; 96374; 99285; J2270; J7030

== ENCOUNTER 2018-03-26 15:47 | Inpatient (IN) | payer MEDICARE, OTHER ==
[2018-03-26 15:47] VITALS: BMI 22.3
--- NOTE | 2018-03-26 16:53 | C.PDOC ---
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 MRI 11/2017 +BRAIN METS, PRESENTS TO THE EMERGENCY DEPARTMENT WITH COMPLAINTS OF NEW ONSET DOUBLE VISION X 3 DAYS. INTERMIT, WORSE WHEN SUDDENLY CHANGES VISION DIRECTION. ASSOC OCC VERTIGO. DENIES VISION LOSS, PAIN. PS SX CAN BE WORSE WHEN LOOKS FAR AWAY. PT IS ALSO COMPLAINING OF NEW ONSET R LOWER LEG NUMBNESS X 6 DAYS. STATES KNEE, THIGH, FOOT/ANKLE "FEELS NORMAL". NO ASSOC WEAKNESS, CHANGE IN WALKING. EXAM NAD HEENT +MILD L EYE INWARD DEV. FULL ROM EOM. PERRLA. +REPRODUC DOUBLE VISION W SUDDEN CHANGE IN EYE DIRECTION. NEURO +NUMBNESS FRONT/POST R LOWER LEG. FOOT, ANKLE, KNEE, THIGH WNL. NO FOCAL MOTOR DEF GAIT WNL REMAINDER NEG Time Seen by Provider: 03/26/18 16:28 Chief Complaint (Nursing): Eye Problem History Per: Patient History/Exam Limitations: no limitations Current Symptoms Are (Timing): Still Present Severity: Moderate Past Medical History Reviewed: Historical Data, Nursing Documentation, Vital Signs Vital Signs: Last Vital Signs Temp 98.2 F 03/26/18 16:09 Pulse 100 H 03/26/18 16:09 Resp 20 03/26/18 16:09 BP 91/53 L 03/26/18 16:09 Pulse Ox 100 03/26/18 18:04 - Medical History PMH: Anemia, Anxiety, Arthritis (HX OF B/L HIP PAIN L>R), Gastritis, HTN, Hypercholesterolemia, Hyperlipidemia, Malignancy (metastatic lung CA) Surgical History: CABG Denies: Pacemaker - [facility] Procedures EXCISION OF LIVER, PERCUTANEOUS APPROACH, DIAGNOSTIC (07/01/17) INTRODUCTION OF SERUM/TOX/VACCINE INTO MUSCLE, PERC APPROACH (08/25/17) Family History: States: No Known Family Hx - Social History Hx Alcohol Use: Yes (former) Hx Substance Use: No - Immunization History Hx Tetanus Toxoid Vaccination: No Hx Influenza Vaccination: No Hx Pneumococcal Vaccination: No Review Of Systems Constitutional: Negative for: Fever, Chills Eyes: Positive for: Other (DOUBLE VISION) Cardiovascular: Negative for: Chest Pain Respiratory: Negative for: Cough, Shortness of Breath Gastrointestinal: Negative for: Nausea, Vomiting Musculoskeletal: Positive for: Other (LEG NUMBNESS) Skin: Negative for: Rash Neurological: Negative for: Headache, Dizziness Physical Exam - Physical Exam Appears: Non-toxic, No Acute Distress Skin: Warm, Dry, No Rash Head: Other ( +MILD L EYE INWARD DEV. FULL ROM EOM. PERRLA. +REPRODUC DOUBLE VISION W SUDDEN CHANGE IN EYE DIRECTION. ) Eye(s): bilateral: Normal Inspection, PERRL, EOMI Nose: Normal Oral Mucosa: Moist Lips: Normal Appearing Neck: Normal ROM Chest: Symmetrical Cardiovascular: Rhythm Regular, No Murmur Respiratory: Normal Breath Sounds, No Accessory Muscle Use Gastrointestinal/Abdominal: Soft, No Tenderness Extremity: Normal ROM, No Deformity, No Swelling Neurological/Psych: Other ( +NUMBNESS FRONT/POST R LOWER LEG. FOOT, ANKLE, KNEE , THIGH WNL. NO FOCAL MOTOR DEF) ED Course And Treatment - Laboratory Results Result Diagrams: 03/26/18 17:09 03/26/18 17:09 ECG: Interpreted By Me ECG Rhythm: Sinus Rhythm Interpretation Of ECG: NEW TWI V2,V3 COMPARED TO 02/2018 AND 11/2017. Rate From EC O2 Sat by Pulse Oximetry: 100 (RA) Pulse Ox Interpretation: Normal Progress - Re-Evaluation Re-evaluation Note: 03/26/18 18:03 EXAM UNCH VSS DW DR Gómez COPPOLA, AWARE OF ER FINDINGS. TRANSFUSE PRBC X 2, PLT X 1, WILL CONSULT. 03/26/18 18:31 NEW EKG CHANGES COMPARED TO PRIOR. NO CP, SOB. D/W DR Debo MILLER AWARE OF ER FINDINGS WILL ADMIT - Data Reviewed Data Reviewed: Lab, Diagnostic imaging, Old records - Continuity of Care Discussed patient case with:: Patient, Family-HIPPA compliant, PMD Discussed pt. case with c consultant/specialty: Hematology Disposition Counseled Patient/Family Regarding: Studies Performed, Diagnosis - Disposition Disposition: HOSPITALIZED Disposition Time: 18:03 Condition: STABLE - POA Present On Arrival: None - Clinical Impression Clinical Impression: Pancytopenia, Dizziness, Disorder of vision, Metastatic cancer - Scribe Statement The provider has reviewed the documentation as recorded by the Scribe (Horace Hayden) All medical record entries made by the Scribe were at my direction and personally dictated by me. I have reviewed the chart and agree that the record accurately reflects my personal performance of the history, physical exam, medical decision making, and the department course for this patient. I have also personally directed, reviewed, and agree with the discharge instructions and disposition. Decision To Admit - Pt Status Changed To: Hospital Disposition Of: Inpatient - Admit Certification Admit to Inpatient:: After my assessment, the patient will require hospitalization for at least two midnights. This is because of the severity of symptoms shown, intensity of services needed, and/or the medical risk in this patient being treated as an outpatient. - InPatient: Physician Admission Certification: I certify that this patient requires 2 or more midnights of care for the following reason:: SEE NOTE - . Bed Request Type: Regular Admitting Physician: Ko Miller Patient Diagnosis: Pancytopenia, Dizziness, Disorder of vision, Metastatic cancer
[2018-03-26 17:18] LABS: BASO % 0.7 % (0.0-2.0); EOS % 1.2 % (0.0-4.0); LYMPH # 1.1 K/uL (1.0-4.3); LYMPH % 76.1 % (20.0-40.0); MEAN CELL VOLUME 91.2 fL (80.0-94.0); MEAN CORPUSCULAR HEMOGLOBIN 33.5 pg (27.0-31.0); MEAN CORPUSCULAR HGB CONC 36.7 g/dL (33.0-37.0); MEAN PLATELET VOLUME 8.4 fL (7.2-11.7); MONO # 0.1 K/uL (0.0-0.8); MONO % 5.9 % (0.0-10.0); NEUT # 0.2 K/uL (1.8-7.0); NEUT % 16.1 % (50.0-75.0); NRBC % 0.2 % (0.0-2.0); RBC 1.91 Mil/uL (4.40-5.90); RED CELL DISTRIBUTION WIDTH 19.8 % (11.5-14.5)
--- NOTE | 2018-03-26 17:28 | CT ---
PROCEDURE: CT HEAD WITHOUT CONTRAST. HISTORY: DOUBLE VISION, HO MET CA COMPARISON: MRI brain dated 12/27/2017. TECHNIQUE: Axial computed tomography images were obtained through the head/brain without intravenous contrast. Radiation dose: Total exam DLP = 816.9 mGy-cm. This CT exam was performed using one or more of the following dose reduction techniques: Automated exposure control, adjustment of the mA and/or kV according to patient size, and/or use of iterative reconstruction technique. FINDINGS: HEMORRHAGE: No intracranial hemorrhage. BRAIN: No mass effect or edema. Atrophy. Chronic microvascular ischemic changes. VENTRICLES: Unremarkable. No hydrocephalus. CALVARIUM: Clival metastasis redemonstrated. PARANASAL SINUSES: Unremarkable as visualized. No significant inflammatory changes. MASTOID AIR CELLS: Unremarkable as visualized. No inflammatory changes. OTHER FINDINGS: None. IMPRESSION: No acute intracranial pathology. Age-related changes.
[2018-03-26 17:37] LABS: HEMOGLOBIN 6.4 g/dL (12.0-18.0)
[2018-03-26 17:38] LABS: PLATELET COUNT 13 K/uL (130-400); WHITE BLOOD COUNT 1.5 K/uL (4.8-10.8)
[2018-03-26 17:42] LABS: BLOOD UREA NITROGEN 20 mg/dL (9-20); CALCIUM 8.3 mg/dl (8.6-10.4); GFR AFRICAN-AMERICAN > 60; GFR NON-AFRICAN AMERICAN > 60
[2018-03-26 18:24] LABS: ANISOCYTOSIS SLIGHT; HYPOCHROMIC SLIGHT; LYMPHOCYTE 79 % (20-40); MONOCYTE 1 % (0-10); NEUTROPHIL 20 % (50-75); PLATELET ESTIMATE MARKEDLY DECREASED (NORMAL); POLYCHROMIC SLIGHT; TOTAL CELLS COUNTED 100
--- NOTE | 2018-03-26 21:07 | CP.PCM.HP ---
Past Patient History - Infectious Disease Hx of Infectious Diseases: None - Past Medical History & Family History Past Medical History?: Yes - Past Social History Smoking Status: Former Smoker - CARDIAC Hx Hypercholesterolemia: Yes Hx Hypertension: Yes Hx Pacemaker: No - PULMONARY Hx Respiratory Disorders: No - NEUROLOGICAL Hx Neurological Disorder: No Hx Paralysis: No - HEENT Hx HEENT Problems: No - RENAL Hx Chronic Kidney Disease: No - ENDOCRINE/METABOLIC Hx Endocrine Disorders: No - HEMATOLOGICAL/ONCOLOGICAL Hx Anemia: Yes - INTEGUMENTARY Hx Dermatological Problems: No - MUSCULOSKELETAL/RHEUMATOLOGICAL Hx Arthritis: Yes (HX OF B/L HIP PAIN L>R) - GASTROINTESTINAL Hx Gastritis: Yes - GENITOURINARY/GYNECOLOGICAL Hx Genitourinary Disorders: No - PSYCHIATRIC Hx Anxiety: Yes Hx Substance Use: No - SURGICAL HISTORY Hx Coronary Artery Bypass Graft: Yes - ANESTHESIA Hx Anesthesia: Yes Hx Anesthesia Reactions: No Hx Malignant Hyperthermia: No Meds Allergies/Adverse Reactions: Allergies Allergy/AdvReac Type Severity Reaction Status Date / Time No Known Allergies Allergy Verified 03/13/18 11:41 Physical Exam - Constitutional Appears: Well - Head Exam Head Exam: ATRAUMATIC, NORMAL INSPECTION, NORMOCEPHALIC - Eye Exam Eye Exam: EOMI, Normal appearance, PERRL Pupil Exam: NORMAL ACCOMODATION, PERRL - ENT Exam ENT Exam: Mucous Membranes Moist, Normal Exam - Neck Exam Neck exam: Positive for: Normal Inspection - Respiratory Exam Respiratory Exam: Decreased Breath Sounds - Cardiovascular Exam Cardiovascular Exam: REGULAR RHYTHM, +S1, +S2 - GI/Abdominal Exam GI & Abdominal Exam: Diminished Bowel Sounds, Soft - Rectal Exam Rectal Exam: Deferred Results - Vital Signs Recent Vital Signs: Last Vital Signs Temp 98.6 F 03/26/18 20:47 Pulse 93 H 03/26/18 20:47 Resp 17 03/26/18 20:47 BP 101/55 L 03/26/18 20:47 Pulse Ox 100 03/26/18 20:47 - Labs Result Diagrams: 03/26/18 17:09 03/26/18 17:09 Labs: Laboratory Results - last 24 hr 03/26/18 03/26/18 03/26/18 17:09 17:09 18:47 WBC 1.5 L* D RBC 1.91 L Hgb 6.4 L* D Hct 17.4 L MCV 91.2 D MCH 33.5 H MCHC 36.7 RDW 19.8 H Plt Count 13 L* D MPV 8.4 Neut % (Auto) 16.1 L Lymph % (Auto) 76.1 H [place] % (Auto) 5.9 Eos % (Auto) 1.2 Baso % (Auto) 0.7 Neut # (Auto) 0.2 L Lymph # (Auto) 1.1 [place] # (Auto) 0.1 Eos # (Auto) 0.0 Baso # (Auto) 0.0 Neutrophils % (Manual) 20 L Lymphocytes % (Manual) 79 H Monocytes % (Manual) 1 Platelet Estimate Markedly decreased L Polychromasia Slight Hypochromasia (manual) Slight Anisocytosis (manual) Slight Sodium 138 Potassium 4.1 Chloride 102 Carbon Dioxide 24 Anion Gap 16 BUN 20 Creatinine 0.8 Est GFR ( Amer) > 60 Est GFR (Non-Af Amer) > 60 Random Glucose 124 H Calcium 8.3 L Blood Type A POSITIVE Antibody Screen Negative
[2018-03-27 09:03] LABS: BASO % 0.5 % (0.0-2.0); EOS % 1.3 % (0.0-4.0); HEMOGLOBIN 7.4 g/dL (12.0-18.0); LYMPH # 1.2 K/uL (1.0-4.3); LYMPH % 72.3 % (20.0-40.0); MEAN CELL VOLUME 89.3 fL (80.0-94.0); MEAN CORPUSCULAR HEMOGLOBIN 31.9 pg (27.0-31.0); MEAN CORPUSCULAR HGB CONC 35.7 g/dL (33.0-37.0); MEAN PLATELET VOLUME 7.9 fL (7.2-11.7); MONO # 0.1 K/uL (0.0-0.8); MONO % 6.6 % (0.0-10.0); NEUT # 0.3 K/uL (1.8-7.0); NEUT % 19.3 % (50.0-75.0); NRBC % 0.1 % (0.0-2.0); RBC 2.31 Mil/uL (4.40-5.90); RED CELL DISTRIBUTION WIDTH 19.4 % (11.5-14.5)
[2018-03-27 09:12] LABS: PLATELET COUNT 46 K/uL (130-400); WHITE BLOOD COUNT 1.7 K/uL (4.8-10.8)
[2018-03-27 09:30] LABS: ALB/GLOB RATIO 1.5 (1.0-2.1); ALBUMIN 3.7 g/dL (3.5-5.0); ALT/SGPT 37 U/L (21-72); AST/SGOT 44 U/L (17-59); BLOOD UREA NITROGEN 17 mg/dL (9-20); CALCIUM 8.8 mg/dl (8.6-10.4); GFR AFRICAN-AMERICAN > 60; GFR NON-AFRICAN AMERICAN > 60
[2018-03-27] MEDS: Diclofenac Sodium Delayed Release 75 mg EC Tab PO SCH ×2 (10:00→19:39)
[2018-03-27] MEDS ORDERED: ROSUVASTATIN 20MG PO SCH (10:00)
[2018-03-27 10:32] LABS: EOSINOPHIL 2 % (0-4); LYMPHOCYTE 68 % (20-40); MONOCYTE 8 % (0-10); NEUTROPHIL 22 % (50-75); PLATELET ESTIMATE DECREASED (NORMAL); TOTAL CELLS COUNTED 50
[2018-03-27 10:33] LABS: ANISOCYTOSIS SLIGHT; HYPOCHROMIC SLIGHT; POIKILOCYTOSIS SLIGHT
[2018-03-27 10:34] LABS: TARGET CELLS SLIGHT
--- NOTE | 2018-03-27 11:39 | CP.PCM.PN ---
Subjective - Date & Time of Evaluation Date of Evaluation: 03/27/18 Time of Evaluation: 09:15 - Subjective Subjective: clinically same Objective - Vital Signs/Intake and Output Vital Signs (last 24 hours): Temp Pulse Resp BP Pulse Ox 98.1 F 81 20 104/62 96 03/27/18 08:00 03/27/18 08:00 03/27/18 08:00 03/27/18 08:00 03/27/18 08:00 Intake and Output: 03/27/18 03/27/18 06:59 18:59 Intake Total 197 Balance 197 - Medications Medications: Current Medications Alprazolam (Xanax) 0.5 mg PO Q12 [facility] Last Admin: 03/27/18 09:59 Dose: 0.5 mg Aspirin (Ecotrin) 81 mg PO DAILY [facility] Last Admin: 03/27/18 10:04 Dose: 81 mg Chlorpromazine (Thorazine) 25 mg PO Q6H PRN PRN Reason: Hiccups Last Admin: 03/27/18 10:00 Dose: 25 mg Clopidogrel Bisulfate (Plavix) 75 mg PO DAILY [facility] Last Admin: 03/27/18 10:00 Dose: 75 mg Demeclocycline HCl (Declomycin) 150 mg PO BID [facility] PRN Reason: Protocol Last Admin: 03/27/18 10:01 Dose: 150 mg Dexamethasone (Decadron) 2 mg PO BID [facility] Last Admin: 03/27/18 10:00 Dose: 2 mg Diclofenac Sodium (Voltaren) 75 mg PO BID [facility] Last Admin: 03/27/18 10:00 Dose: 75 mg Famotidine (Pepcid) 20 mg PO DAILY [facility] Last Admin: 03/27/18 09:59 Dose: 20 mg Fentanyl (Duragesic) 1 patch TD Q72 [facility] Ferrous Sulfate (Feosol) 325 mg PO DAILY [facility] Last Admin: 03/27/18 10:00 Dose: 325 mg Rosuvastatin Calcium (Crestor) 20 mg PO DAILY [facility] Last Admin: 03/27/18 10:00 Dose: 20 mg Sodium Chloride (Sodium Chloride Tab) 1 gm PO BID [facility] - Labs Labs: 03/27/18 08:53 03/27/18 08:53 - Constitutional Appears: Well - Head Exam Head Exam: ATRAUMATIC, NORMAL INSPECTION, NORMOCEPHALIC - Eye Exam Eye Exam: EOMI, Normal appearance, PERRL Pupil Exam: NORMAL ACCOMODATION, PERRL - ENT Exam ENT Exam: Mucous Membranes Moist, Normal Exam - Neck Exam Neck Exam: Full ROM, Normal Inspection. absent: Lymphadenopathy - Respiratory Exam Respiratory Exam: Decreased Breath Sounds - Cardiovascular Exam Cardiovascular Exam: REGULAR RHYTHM, +S1, +S2 - GI/Abdominal Exam GI & Abdominal Exam: Soft, Diminished Bowel Sounds - Rectal Exam Rectal Exam: Deferred Assessment and Plan - Assessment and Plan (Free Text) Plan: Troponin 3 negative Xanax demeclocycline sodium is 138 fentanyl patch WBCs [address] wright
--- NOTE | 2018-03-27 18:30 | CP.PCM.CON ---
History of Present Illness - History of Present Illness History of Present Illness: 62 year old male with a history of HTN, GERD, HL, CAD s/p CABG, stage IV small cell lung cancer with liver metastasis dx 06/2017 on chemotherapy, admitted with diplopia. The patient was seen in my office with complaints of double vision for a few days and sent to the hospital. He denies dizziness or headache. He denies fevers and chills but does have ear pain. Past medical history: HTN, GERD, HL, CAD s/p CABG. Past surgical history: Denies. Family history: Denies hematologic and oncologic problems Social histoy: smokes 2 cigs daily x 50 years, former alcohol abuse. Allergies: NKA Review of systems: All remaining review of systems including HEENT, cardiovascular, respiratory, gastrointestinal, genitourinary, musculoskeletal, dermatologic, neurologic, and psychiatric are negative unless mentioned in the HPI. Past Patient History - Infectious Disease Hx of Infectious Diseases: None - Past Medical History & Family History Past Medical History?: Yes - Past Social History Smoking Status: Former Smoker - CARDIAC Hx Hypercholesterolemia: Yes Hx Hypertension: Yes Hx Pacemaker: No - PULMONARY Hx Respiratory Disorders: No - NEUROLOGICAL Hx Neurological Disorder: No Hx Paralysis: No - HEENT Hx HEENT Problems: No - RENAL Hx Chronic Kidney Disease: No - ENDOCRINE/METABOLIC Hx Endocrine Disorders: No - HEMATOLOGICAL/ONCOLOGICAL Hx Anemia: Yes - INTEGUMENTARY Hx Dermatological Problems: No - MUSCULOSKELETAL/RHEUMATOLOGICAL Hx Arthritis: Yes (HX OF B/L HIP PAIN L>R) Hx Falls: Yes - GASTROINTESTINAL Hx Gastritis: Yes - GENITOURINARY/GYNECOLOGICAL Hx Genitourinary Disorders: No - PSYCHIATRIC Hx Anxiety: Yes Hx Substance Use: No - SURGICAL HISTORY Hx Coronary Artery Bypass Graft: Yes - ANESTHESIA Hx Anesthesia: Yes Hx Anesthesia Reactions: No Hx Malignant Hyperthermia: No Meds Allergies/Adverse Reactions: Allergies Allergy/AdvReac Type Severity Reaction Status Date / Time No Known Allergies Allergy Verified 03/13/18 11:41 - Medications Medications: Current Medications Alprazolam (Xanax) 0.5 mg PO Q12 [facility] Last Admin: 03/27/18 09:59 Dose: 0.5 mg Aspirin (Ecotrin) 81 mg PO DAILY [facility] Last Admin: 03/27/18 10:04 Dose: 81 mg Chlorpromazine (Thorazine) 25 mg PO Q6H PRN PRN Reason: Hiccups Last Admin: 03/27/18 10:00 Dose: 25 mg Clopidogrel Bisulfate (Plavix) 75 mg PO DAILY [facility] Last Admin: 03/27/18 10:00 Dose: 75 mg Demeclocycline HCl (Declomycin) 150 mg PO BID [facility] PRN Reason: Protocol Last Admin: 03/27/18 10:01 Dose: 150 mg Dexamethasone (Decadron) 2 mg PO BID [facility] Last Admin: 03/27/18 10:00 Dose: 2 mg Diclofenac Sodium (Voltaren) 75 mg PO BID [facility] Last Admin: 03/27/18 10:00 Dose: 75 mg Famotidine (Pepcid) 20 mg PO DAILY [facility] Last Admin: 03/27/18 09:59 Dose: 20 mg Fentanyl (Duragesic) 1 patch TD Q72 [facility] Ferrous Sulfate (Feosol) 325 mg PO DAILY [facility] Last Admin: 03/27/18 10:00 Dose: 325 mg Rosuvastatin Calcium (Crestor) 20 mg PO HS [facility] Sodium Chloride (Sodium Chloride Tab) 1 gm PO BID [facility] Physical Exam - Head Exam Head Exam: ATRAUMATIC - Eye Exam Eye Exam: Normal appearance - ENT Exam ENT Exam: Mucous Membranes Dry - Cardiovascular Exam Cardiovascular Exam: +S1, +S2 - GI/Abdominal Exam GI & Abdominal Exam: Normal Bowel Sounds - Extremities Exam Extremities exam: Positive for: normal inspection - Neurological Exam Neurological exam: Oriented x3 - Psychiatric Exam Psychiatric exam: Normal Affect, Normal Mood - Skin Skin Exam: Warm Results - Vital Signs Recent Vital Signs: Last Vital Signs Temp 98.1 F 03/27/18 15:05 Pulse 102 H 03/27/18 15:05 Resp 20 03/27/18 15:05 BP 102/61 03/27/18 15:05 Pulse Ox 95 03/27/18 15:05 - Labs Result Diagrams: 03/29/18 08:32 03/27/18 08:53 Labs: Laboratory Results - last 24 hr 03/26/18 03/26/18 03/27/18 17:09 18:47 08:53 WBC 1.7 L* RBC 2.31 L Hgb 7.4 L Hct 20.6 L MCV 89.3 MCH 31.9 H MCHC 35.7 RDW 19.4 H Plt Count 46 L D MPV 7.9 Neut % (Auto) 19.3 L Lymph % (Auto) 72.3 H [place] % (Auto) 6.6 Eos % (Auto) 1.3 Baso % (Auto) 0.5 Neut # (Auto) 0.3 L Lymph # (Auto) 1.2 [place]ette # (Auto) 0.1 Eos # (Auto) 0.0 Baso # (Auto) 0.0 Neutrophils % (Manual) 22 L Lymphocytes % (Manual) 68 H Monocytes % (Manual) 8 Eosinophils % (Manual) 2 Platelet Estimate Decreased L Hypochromasia (manual) Slight Poikilocytosis (manual Slight Anisocytosis (manual) Slight Target Cells Slight Smear Path Review Sodium Potassium Chloride Carbon Dioxide Anion Gap BUN Creatinine Est GFR ( Amer) Est GFR (Non-Af Amer) Random Glucose Calcium Phosphorus Total Bilirubin AST ALT Alkaline Phosphatase Total Protein Albumin Globulin Albumin/Globulin Ratio Blood Type A POSITIVE Antibody Screen Negative 03/27/18 08:53 WBC RBC Hgb Hct MCV MCH MCHC RDW Plt Count MPV Neut % (Auto) Lymph % (Auto) [place] % (Auto) Eos % (Auto) Baso % (Auto) Neut # (Auto) Lymph # (Auto) [place] # (Auto) Eos # (Auto) Baso # (Auto) Neutrophils % (Manual) Lymphocytes % (Manual) Monocytes % (Manual) Eosinophils % (Manual) Platelet Estimate Hypochromasia (manual) Poikilocytosis (manual Anisocytosis (manual) Target Cells Smear Path Review Sodium 138 Potassium 4.0 Chloride 102 Carbon Dioxide 25 Anion Gap 16 BUN 17 Creatinine 0.8 Est GFR ( Amer) > 60 Est GFR (Non-Af Amer) > 60 Random Glucose 86 Calcium 8.8 Phosphorus 3.6 Total Bilirubin 2.5 H AST 44 ALT 37 Alkaline Phosphatase 178 H Total Protein 6.3 Albumin 3.7 Globulin 2.5 Albumin/Globulin Ratio 1.5 Blood Type Antibody Screen Assessment & Plan (1) Pancytopenia Assessment and Plan: secondary to chemotherapy with neutropenia neutropenic precautions will give Granix transfusion support PRN Status: Acute (2) Diplopia Assessment and Plan: rule out brain metastasis CT head negative for MRI brain Status: Acute (3) Small cell lung cancer Assessment and Plan: stage IV liver metastasis rule out brain mets outpatient treatment Thank you for this interesting consult. Status: Acute
--- NOTE | 2018-03-28 01:10 | CARD ---
APPROVED REPORT Date of service: 03/26/2018 EKG Measurement Heart [id number] <Conclusion> Normal sinus rhythm Septal infarct, age undetermined ST & T wave abnormality, consider anterior ischemia Abnormal ECG
[2018-03-28] MEDS: Diclofenac Sodium Delayed Release 75 mg EC Tab PO SCH ×2 (09:35→18:38)
--- NOTE | 2018-03-28 20:41 | CP.PCM.PN ---
Subjective - Date & Time of Evaluation Time of Evaluation: 09:20 - Subjective Subjective: clinically same Objective - Vital Signs/Intake and Output Vital Signs (last 24 hours): Temp Pulse Resp BP Pulse Ox 98.1 F 75 20 123/68 97 03/28/18 16:04 03/28/18 16:46 03/28/18 16:04 03/28/18 16:04 03/28/18 16:04 - Medications Medications: Current Medications Alprazolam (Xanax) 0.5 mg PO Q12 [facility] Last Admin: 03/28/18 09:35 Dose: 0.5 mg Aspirin (Ecotrin) 81 mg PO DAILY [facility] Last Admin: 03/28/18 09:35 Dose: 81 mg Chlorpromazine (Thorazine) 25 mg PO Q6H PRN PRN Reason: Hiccups Last Admin: 03/28/18 16:05 Dose: 25 mg Clopidogrel Bisulfate (Plavix) 75 mg PO DAILY [facility] Last Admin: 03/28/18 09:35 Dose: 75 mg Demeclocycline HCl (Declomycin) 150 mg PO BID [facility] PRN Reason: Protocol Last Admin: 03/28/18 18:37 Dose: 150 mg Dexamethasone (Decadron) 2 mg PO BID [facility] Last Admin: 03/28/18 18:38 Dose: 2 mg Diclofenac Sodium (Voltaren) 75 mg PO BID [facility] Last Admin: 03/28/18 18:38 Dose: 75 mg Famotidine (Pepcid) 20 mg PO DAILY [facility] Last Admin: 03/28/18 09:35 Dose: 20 mg Fentanyl (Duragesic) 1 patch TD Q72 [facility] Ferrous Sulfate (Feosol) 325 mg PO DAILY [facility] Last Admin: 03/28/18 09:35 Dose: 325 mg Rosuvastatin Calcium (Crestor) 20 mg PO HS [facility] Sodium Chloride (Sodium Chloride Tab) 1 gm PO BID [facility] Last Admin: 03/28/18 18:37 Dose: 1 gm - Labs Labs: 03/27/18 08:53 03/27/18 08:53 - Constitutional Appears: Well - Head Exam Head Exam: ATRAUMATIC, NORMAL INSPECTION, NORMOCEPHALIC - Eye Exam Eye Exam: EOMI, Normal appearance, PERRL Pupil Exam: NORMAL ACCOMODATION, PERRL - ENT Exam ENT Exam: Mucous Membranes Moist, Normal Exam - Neck Exam Neck Exam: Full ROM, Normal Inspection. absent: Lymphadenopathy - Respiratory Exam Respiratory Exam: Decreased Breath Sounds - Cardiovascular Exam Cardiovascular Exam: REGULAR RHYTHM, +S1, +S2 - GI/Abdominal Exam GI & Abdominal Exam: Soft, Diminished Bowel Sounds - Rectal Exam Rectal Exam: Deferred
[2018-03-28] MEDS: ROSUVASTATIN 20MG PO SCH (21:36)
[2018-03-28 22:37] LABS: BASO % 0.1 % (0.0-2.0); HEMOGLOBIN 7.6 g/dL (12.0-18.0); LYMPH # 1.1 K/uL (1.0-4.3); MONO # 0.3 K/uL (0.0-0.8); RBC 2.39 Mil/uL (4.40-5.90)
[2018-03-28 22:43] LABS: EOS % 0.1 % (0.0-4.0); LYMPH % 22.7 % (20.0-40.0); MEAN CELL VOLUME 90.2 fL (80.0-94.0); MEAN CORPUSCULAR HEMOGLOBIN 31.9 pg (27.0-31.0); MEAN CORPUSCULAR HGB CONC 35.4 g/dL (33.0-37.0); MONO % 6.1 % (0.0-10.0); NEUT # 3.3 K/uL (1.8-7.0); NRBC % 0.2 % (0.0-2.0)
[2018-03-28 22:48] LABS: WHITE BLOOD COUNT 4.7 K/uL (4.8-10.8)
[2018-03-29] MEDS ORDERED: Oxycodone/Acetaminophen 5/325 mg Tab PO ONE (03:27)
[2018-03-29 08:51] LABS: BASO % 0.2 % (0.0-2.0); EOS % 0.3 % (0.0-4.0); HEMOGLOBIN 7.8 g/dL (12.0-18.0); LYMPH # 1.3 K/uL (1.0-4.3); LYMPH % 22.9 % (20.0-40.0); MEAN CELL VOLUME 90.1 fL (80.0-94.0); MEAN CORPUSCULAR HEMOGLOBIN 32.4 pg (27.0-31.0); MEAN PLATELET VOLUME 9.2 fL (7.2-11.7); MONO # 0.5 K/uL (0.0-0.8); NEUT # 3.9 K/uL (1.8-7.0); NEUT % 67.6 % (50.0-75.0); NRBC % 0.2 % (0.0-2.0); RBC 2.39 Mil/uL (4.40-5.90); WHITE BLOOD COUNT 5.7 K/uL (4.8-10.8)
[2018-03-29] MEDS: Diclofenac Sodium Delayed Release 75 mg EC Tab PO SCH ×2 (10:31→18:54)
--- NOTE | 2018-03-29 10:52 | CP.PCM.PCO ---
Physician Communication Note - Physician Communication Note Physician Communication Note: Family meting toda at 12 pm
--- NOTE | 2018-03-29 10:57 | CP.PCM.CON ---
History of Present Illness - History of Present Illness History of Present Illness: Palliative consult requested by Doctor Debo Mccartney for goals of care discussion Patient is a 62 yo [place] male admitted from home with complains of double visin X 3 levine, accompanid by vertigo. Denied vision loss. Reported new, Right lower leg numbness X 6 days. Patient has known Hx of metastatic stage IV lung cancer , mets to liver and brain. CT head on this admission confirmed mets presence. Patient is fallowed by Doctor Kathia and was on chemo Tx as an outpatient. PMH: HTN, GERD, metastatic lung cancer Soc. Hx: single, unemployed, livs at home, has two daughter, former smoker Fam. Hx: father with HTN, no cancer in family Review of Systems - Constitutional Constitutional: absent: As Per HPI, Anorexia, Chills, Daytime Sleepiness, Excessive Sweating, Fatigue, Fever, Frequent Falls, Headache, Increased Appetite , Lethargy, Malaise, Night Sweats, Snoring, Sleep Apnea, Weight Gain, Weight Loss, Weakness, Other - EENT Eyes: Diplopia Ears: absent: As Per HPI, Decreased Hearing, Ear Discharge, Ear Pain, Tinnitus, Abnormal Hearing, Disequilibrium, Dizziness, Other Nose/Mouth/Throat: absent: As Per HPI, Epistaxis, Nasal Congestion, Nasal Discharge, Nasal Obstruction, Nasal Trauma, Nose Pain, Post Nasal Drip, Sinus Pain, Sinus Pressure, Bleeding Gums, Change in Voice, Dental Pain, Dry Mouth, Dysphagia, Halitosis, Hoarsness, Lip Swelling, Mouth Lesions, Mouth Pain, Odynophagia, Sore Throat, Throat Swelling, Tongue Swelling, Facial Pain, Neck Pain, Neck Mass, Other - Cardiovascular Cardiovascular: absent: As Per HPI, Acrocyanosis, Chest Pain, Chest Pain at Rest , Chest Pain with Activity, Claudication, Diaphoresis, Dyspnea, Dyspnea on Exertion, Edema, Irregular Heart Rhythm, Pain Radiating to Arm/Neck/Jaw, Leg Edema, Leg Ulcers, Lightheadedness, Orthopnea, Palpitations, Paroxysmal Nocturnal Dyspnea, Pedal Edema, Radiating Pain, Rapid Heart Rate, Slow Heart Rate, Syncope, Other - Respiratory Respiratory: absent: As Per HPI, Cough, Dyspnea, Hemoptysis, Dyspnea on Exertion , Wheezing, Snoring, Stridor, Pain on Inspiration, Chest Congestion, Excessive Mucous Production, Change in Mucous Color, Pain with Coughing, Other - Gastrointestinal Gastrointestinal: absent: As Per HPI, Abdominal Pain, Belching, Bloating, Change in Bowel Habits, Change in Stool Character, Coffee Ground Emesis, Constipation, Cramping, Diarrhea, Dyspepsia, Dysphagia, Early Satiety, Excessive Flatus, Fecal Incontinence, Heartburn, Hematemesis, Hematochezia, Loose Stools, Melena, Nausea, Odynophagia, Temesmus, Vomiting, Other - Genitourinary Genitourinary: absent: As Per HPI, Change in Urinary Stream, Difficulty Urinating, Dysuria, Flank Pain, Hematuria, Pyuria, Nocturia, Urinary Incontinence, Urinary Frequency, Urinary Hesitance, Urinary Urgency, Voiding Freq/Small Amts, Freq UTI, Hx Renal/Bladder Calculi, Hx /Renal Surgery, Bladder Distension, Other - Musculoskeletal Musculoskeletal: Limited Range of Motion, Numbness Additional comments: left lower back pain, radiating down to his buttock and leg - Integumentary Integumentary: absent: As Per HPI, Acne, Alopecia, Bleeding Lesions, Change in Hair, Change in Nails, Change in Pigmentation, Changing Lesions, Dry Skin, Erythema, Furuncle, Hirsutism, Lesions, New Lesions, Non-Healing Lesions, Photosensitivity, Pruritus, Rash, Skin Pain, Skin Ulcer, Sores, Striae, Swelling , Unusual Bruising, Wounds, Jaundice, Other - Neurological Neurological: Other Visual Disturbances - Psychiatric Psychiatric: absent: As Per HPI, Abnormal Sleep Pattern, Anhedonia, Anxiety, Auditory Hallucinations, Behavioral Changes, Change in Appetite, Change in Libido, Confusion, Depression, Difficulty Concentrating, Hallucinations, Homicidal Ideation, Hopelessness, Irritability, Memory Loss, Mood Swings, Panic Attacks, Paranoia, Suicidal Ideation, Visual Hallucinations, Tactile Hallucinations, Other - Endocrine Endocrine: absent: As Per HPI, Change in Body Appearance, Change in Libido, Cold Intolorance, Deepening of Voice, Excessive Sweating, Fatigue, Flushing, Heat Intolorance, Increase in Ring/Shoe/Hat Size, Palpitations, Polydipsia, Polyphagia, Polyuria, Other - Hematologic/Lymphatic Hematologic: Easy Bleeding Past Patient History - Infectious Disease Hx of Infectious Diseases: None - Past Medical History & Family History Past Medical History?: Yes - Past Social History Smoking Status: Former Smoker - CARDIAC Hx Hypercholesterolemia: Yes Hx Hypertension: Yes Hx Pacemaker: No - PULMONARY Hx Respiratory Disorders: No - NEUROLOGICAL Hx Neurological Disorder: No Hx Paralysis: No - HEENT Hx HEENT Problems: No - RENAL Hx Chronic Kidney Disease: No - ENDOCRINE/METABOLIC Hx Endocrine Disorders: No - HEMATOLOGICAL/ONCOLOGICAL Hx Anemia: Yes - INTEGUMENTARY Hx Dermatological Problems: No - MUSCULOSKELETAL/RHEUMATOLOGICAL Hx Arthritis: Yes (HX OF B/L HIP PAIN L>R) Hx Falls: Yes - GASTROINTESTINAL Hx Gastritis: Yes - GENITOURINARY/GYNECOLOGICAL Hx Genitourinary Disorders: No - PSYCHIATRIC Hx Anxiety: Yes Hx Substance Use: No - SURGICAL HISTORY Hx Coronary Artery Bypass Graft: Yes - ANESTHESIA Hx Anesthesia: Yes Hx Anesthesia Reactions: No Hx Malignant Hyperthermia: No Meds Allergies/Adverse Reactions: Allergies Allergy/AdvReac Type Severity Reaction Status Date / Time No Known Allergies Allergy Verified 03/13/18 11:41 - Medications Medications: Current Medications Alprazolam (Xanax) 0.5 mg PO Q12 [facility] Last Admin: 03/29/18 10:30 Dose: 0.5 mg Aspirin (Ecotrin) 81 mg PO DAILY [facility] Last Admin: 03/29/18 10:30 Dose: 81 mg Chlorpromazine (Thorazine) 25 mg PO Q6H PRN PRN Reason: Hiccups Last Admin: 03/28/18 21:38 Dose: 25 mg Clopidogrel Bisulfate (Plavix) 75 mg PO DAILY [facility] Last Admin: 03/29/18 10:30 Dose: 75 mg Demeclocycline HCl (Declomycin) 150 mg PO BID [facility] PRN Reason: Protocol Last Admin: 03/29/18 10:30 Dose: 150 mg Dexamethasone (Decadron) 2 mg PO BID [facility] Last Admin: 03/29/18 10:33 Dose: 2 mg Diclofenac Sodium (Voltaren) 75 mg PO BID [facility] Last Admin: 03/29/18 10:31 Dose: 75 mg Famotidine (Pepcid) 20 mg PO DAILY [facility] Last Admin: 03/29/18 10:30 Dose: 20 mg Fentanyl (Duragesic) 1 patch TD Q72 [facility] Ferrous Sulfate (Feosol) 325 mg PO DAILY [facility] Last Admin: 03/29/18 10:30 Dose: 325 mg Rosuvastatin Calcium (Crestor) 20 mg PO HS [facility] Last Admin: 03/28/18 21:36 Dose: 20 mg Sodium Chloride (Sodium Chloride Tab) 1 gm PO BID [facility] Last Admin: 03/29/18 10:29 Dose: 1 gm Physical Exam - Constitutional Appears: Chronically Ill - Head Exam Head Exam: ATRAUMATIC, NORMAL INSPECTION, NORMOCEPHALIC - Eye Exam Eye Exam: EOMI Additional comments: complains of double vision - ENT Exam ENT Exam: Mucous Membranes Moist, Normal Exam - Neck Exam Neck exam: Positive for: Normal Inspection - Respiratory Exam Respiratory Exam: Clear to Auscultation Bilateral, NORMAL BREATHING PATTERN - Cardiovascular Exam Cardiovascular Exam: REGULAR RHYTHM - GI/Abdominal Exam GI & Abdominal Exam: Normal Bowel Sounds, Soft - Rectal Exam Rectal Exam: Deferred - Exam Exam: NORMAL INSPECTION - Extremities Exam Extremities exam: Positive for: normal capillary refill, tenderness, pedal pulses present Additional comments: right leg numbness - Back Exam Back exam: NORMAL INSPECTION - Neurological Exam Neurological exam: Alert, Oriented x3 - Psychiatric Exam Psychiatric exam: Normal Affect, Normal Mood - Skin Skin Exam: Dry, Intact, Normal Color Results - Vital Signs Recent Vital Signs: Last Vital Signs Temp 97.8 F 03/29/18 07:00 Pulse 84 03/29/18 08:30 Resp 20 03/29/18 07:00 BP 118/67 03/29/18 07:00 Pulse Ox 99 03/29/18 07:00 - Labs Result Diagrams: 03/29/18 08:32 03/27/18 08:53 Labs: Laboratory Results - last 24 hr 03/28/18 03/29/18 22:19 08:32 WBC 4.7 L D 5.7 RBC 2.39 L 2.39 L Hgb 7.6 L 7.8 L Hct 21.6 L 21.6 L MCV 90.2 90.1 MCH 31.9 H 32.4 H MCHC 35.4 36.0 RDW 19.0 H 19.0 H Plt Count 40 L 37 L MPV 9.0 9.2 Neut % (Auto) 71.0 67.6 Lymph % (Auto) 22.7 22.9 Payette % (Auto) 6.1 9.0 Eos % (Auto) 0.1 0.3 Baso % (Auto) 0.1 0.2 Neut # (Auto) 3.3 3.9 Lymph # (Auto) 1.1 1.3 Payette # (Auto) 0.3 0.5 Eos # (Auto) 0.0 0.0 Baso # (Auto) 0.0 0.0 Assessment & Plan - Assessment and Plan (Free Text) Assessment: Palliative consult Full Code, no advance directive on chart, PPS 40% I reviewed medical records, all diagnostic studies, examined patient in the bed. Patient is alert, oriented X 3, Kyrgyz speaking only, looking chronically ill. Skin pale, Hb 7.8, up from 6.4. Patient complains of double vision, denies vision loss. Breath sounds are normal, denies cough, SOB. Abdomen soft, active bowel sounds, patient has poor appetite. Patient reports severe sharp pain to his left lower back, radiating down to left hip and to the foot. Patient grimaces significant discomfort due to pain. WBC renate up to 5.7 from 1.5. Patient still on neutropenc precaution. BP 118/67, afebrile. I spoke to patient's daughter Alma over the phone and scheduled family meeting for 12 pm today for goals of care discussion. 12:30 pm Family meeting attended b patient's two daughters, Alma and Mildred. Before meeting with the family I discussed patient's condition with Doctor Bae. Doctor Bae will order MRI brain and CT abdomen /pelvis before definite diagnose regarding patient's double vision , is made. With family at bed side, I reviewed patient's condition. Both daughters are, obviously, very worried about patient's condition. They asked many questions. I shared with them my discussion with Doctor Bae. The daughters expressed hope that patient's vision changes were caused by something other than mets to brain. I supported their hope. Impression * Chronically ill patient with dipoplia * Concern is that diplopia may be result of underlying metastatic disease * New sharp, severe pain to left lower back radiating down the leg * Numbness of right leg which begun at home 6 days ago * Family with anticipatory anxiety Suggestions * Bed rest * Would add Morphine 5 mg Po Q 4 hr PRN breakthrough pain * Agree with Doctor Bae's orders for brain MRI and abdomen/pelvis CT * Update family on patient's condition and study results to help them with dealing with anxiety and anticipation Advance care planing 30 min
[2018-03-29] MEDS ORDERED: Iodixanol 320 MG/ML 100 ML BOTTLE IV ONE (13:23)
--- NOTE | 2018-03-29 13:57 | CP.PCM.PN ---
Subjective - Date & Time of Evaluation Date of Evaluation: 03/29/18 Time of Evaluation: 09:00 - Subjective Subjective: clinically same Objective - Vital Signs/Intake and Output Vital Signs (last 24 hours): Temp Pulse Resp BP Pulse Ox 97.8 F 84 20 118/67 99 03/29/18 07:00 03/29/18 08:30 03/29/18 07:00 03/29/18 07:00 03/29/18 07:00 - Medications Medications: Current Medications Alprazolam (Xanax) 0.5 mg PO Q12 [facility] Last Admin: 03/29/18 10:30 Dose: 0.5 mg Aspirin (Ecotrin) 81 mg PO DAILY [facility] Last Admin: 03/29/18 10:30 Dose: 81 mg Chlorpromazine (Thorazine) 25 mg PO Q6H PRN PRN Reason: Hiccups Last Admin: 03/28/18 21:38 Dose: 25 mg Clopidogrel Bisulfate (Plavix) 75 mg PO DAILY [facility] Last Admin: 03/29/18 10:30 Dose: 75 mg Demeclocycline HCl (Declomycin) 150 mg PO BID [facility] PRN Reason: Protocol Last Admin: 03/29/18 10:30 Dose: 150 mg Dexamethasone (Decadron) 2 mg PO BID [facility] Last Admin: 03/29/18 10:33 Dose: 2 mg Diclofenac Sodium (Voltaren) 75 mg PO BID [facility] Last Admin: 03/29/18 10:31 Dose: 75 mg Famotidine (Pepcid) 20 mg PO DAILY [facility] Last Admin: 03/29/18 10:30 Dose: 20 mg Fentanyl (Duragesic) 1 patch TD Q72 [facility] Ferrous Sulfate (Feosol) 325 mg PO DAILY [facility] Last Admin: 03/29/18 10:30 Dose: 325 mg Lactulose (Enulose) 20 gm PO HS [facility] Rosuvastatin Calcium (Crestor) 20 mg PO HS [facility] Last Admin: 03/28/18 21:36 Dose: 20 mg Sodium Chloride (Sodium Chloride Tab) 1 gm PO BID [facility] Last Admin: 03/29/18 10:29 Dose: 1 gm - Labs Labs: 03/29/18 08:32 03/27/18 08:53 - Constitutional Appears: Well - Head Exam Head Exam: ATRAUMATIC, NORMAL INSPECTION, NORMOCEPHALIC - Eye Exam Eye Exam: EOMI, Normal appearance, PERRL Pupil Exam: NORMAL ACCOMODATION, PERRL - ENT Exam ENT Exam: Mucous Membranes Moist, Normal Exam - Neck Exam Neck Exam: Full ROM, Normal Inspection. absent: Lymphadenopathy - Respiratory Exam Respiratory Exam: Decreased Breath Sounds - Cardiovascular Exam Cardiovascular Exam: REGULAR RHYTHM, +S1, +S2 - GI/Abdominal Exam GI & Abdominal Exam: Soft, Diminished Bowel Sounds - Rectal Exam Rectal Exam: Deferred
--- NOTE | 2018-03-29 14:19 | CT ---
Date of service: 03/29/2018 PROCEDURE: CT Chest, Abdomen and Pelvis with intravenous contrast HISTORY: lung cancer evaluation COMPARISON: Comparison is made with the previous CT of the abdomen and pelvis with contrast dated 03/13/[address] of the chest abdomen and pelvis dated 11/06/2017 TECHNIQUE: IV dose administered: 100 mL Visipaque 320. Axial and reformatted coronal and sagittal CT images of the chest abdomen and pelvis were obtained after IV contrast administration. Radiation dose: Total exam DLP = 435.78 mGy-cm. This CT exam was performed using one or more of the following dose reduction techniques: Automated exposure control, adjustment of the mA and/or kV according to patient size, and/or use of iterative reconstruction technique. FINDINGS: CT CHEST WITH CONTRAST: LUNGS: Again seen are scattered lung nodules without significant change since the previous exam. Mild pulmonary vascular congestion is noted. Mild paraseptal emphysema in the upper lobes is again noted. MEDIASTINUM: Unremarkable. Normal caliber aorta and pulmonary arterial trunk. No aortic dissection. The heart is mildly to moderately enlarged. LYMPH NODES: Unremarkable. PLEURA: Unremarkable. No pneumothorax. No pleural fluid. BONES: Again seen are scattered sclerotic bony lesions consistent with widespread osseous metastasis. Again seen is lytic bony lesion at the right aspect of T10 vertebra body. OTHER FINDINGS: None. CT ABDOMEN AND PELVIS: LIVER: Again seen are multiple lesions in the liver consistent with widespread liver metastasis. GALLBLADDER AND BILE DUCTS: Unremarkable. PANCREAS: Unremarkable. No gross lesion or ductal dilatation. SPLEEN: Unremarkable. ADRENALS: Unremarkable. No mass. KIDNEYS AND URETERS: Unremarkable. No hydronephrosis. No solid mass. VASCULATURE: Unremarkable. No aortic aneurysm. BOWEL: Mild constipation is noted. . No obstruction. No gross mural thickening. APPENDIX: No evidence of fat discitis. PERITONEUM: Unremarkable. No free fluid. No free air. LYMPH NODES: Prominent epigastric and lino hepatis lymph nodes are noted. BLADDER: Unremarkable. REPRODUCTIVE: Mildly enlarged heterogeneous prostate. BONES: Again seen are diffuse sclerotic bony lesions consistent with widespread osseous metastasis. OTHER FINDINGS: None. IMPRESSION: Stable scattered lung nodules. Cardiomegaly and mild pulmonary vascular congestion. Multiple heterogeneous lesions in the liver consistent with liver metastasis. Widespread osseous metastasis.
[2018-03-29] MEDS ORDERED: Gadodiamide 287 mg/ml 20 ml IV ONE (14:22)
--- NOTE | 2018-03-29 15:33 | MRI ---
Date of service: 03/29/2018 PROCEDURE: MRI BRAIN WITH AND WITHOUT CONTRAST HISTORY: Diplopia with history of of lung cancer COMPARISON: Comparison made with CT scan brain 03/26/2018. Comparison also made with MRI of the brain dated 12/27/2017 TECHNIQUE: Multiplanar, multisequence MR images of the brain were obtained with and without intravenous contrast enhancement. FINDINGS: HEMORRHAGE: No acute parenchymal, subarachnoid or extra-axial hemorrhage. No evidence of hemosiderin deposition identified on gradient echo weighted axial sequence. DWI: No evidence of an acute or early subacute infarct seen on diffusion imaging. . BRAIN PARENCHYMA: There is a small approximately 3.8 mm rounded enhancing lesion in the right anterior inferior basal ganglia in the region of the right anterior globus pallidus - anterior limb right internal capsule junction that exhibits mild contrast enhancement (best seen on axial postcontrast series 11, image number 13. This lesion is felt to represent a metastatic deposit however no significant surrounding edema or mass effect as associate with a small lesion. Mild generalized volume loss. . This lesion is also new when compared with prior MRI. There are also additional metastatic lesion seen in the right medial temporal lobe para hippocampal gyrus region (coronal sequence series 12 image 13). . Another small approximately 3.6 mm enhancing lesion in the left posterior temporal within the subarachnoid space or along the cortex left posterior temporal region (axial series 11, image 16) also new since prior exam. And least 3 additional small approximately 3.3 by 6.2 mm enhancing lesion right superior parasagittal frontal region (series 12 image number 20) which appears be in the right superior frontal gyrus and another approximately 2.3 mm in the left parasagittal posterior frontoparietal cortical/ subarachnoid space and left posterior superior parietal cortical surface near the dura (best seen on coronal postcontrast series 12, image 4), all of which are new since prior study . Probable additional tiny metastatic lesion in the right parasagittal posterior parietal region (axial series 11, image number 13) Crossing pulsation artifact seen in the anterior superior centrum semiovale bilaterally. There also mild chronic periventricular white matter ischemic changes with multiple chronic appearing lacunar type infarcts scattered about the deep and subcortical white matter both cerebral hemispheres. ENHANCEMENT: Multiple metastatic lesions above. VENTRICLES: No obstructive hydrocephalus CRANIUM: Unremarkable. ORBITS: Changes of bilateral cataract surgery again noted. Orbits and contents otherwise appear grossly unremarkable so far as can be determined on however note that evaluation of orbits proper limited due to the lack of fat-suppressed technique. PARANASAL SINUSES/MASTOIDS: Clear VASCULAR SYSTEM: Visualized major vascular flow voids at skull base patent. OTHER FINDINGS: None . IMPRESSION: There are multiple small metastatic lesions scattered throughout both cerebral hemispheres as described. In addition, mild chronic periventricular white matter ischemic changes with multiple tiny chronic appearing lacunar type infarcts scattered about the deep and subcortical regions as well. The spell at Note these findings were discussed with 5 floor Nurse Elpidio at approximately 3:20 p.m. with written down and read back verification.
--- NOTE | 2018-03-29 15:50 | CP.PCM.PN ---
Subjective - Date & Time of Evaluation Date of Evaluation: 03/28/18 Time of Evaluation: 12:00 - Subjective Subjective: Still has double vision Objective - Vital Signs/Intake and Output Vital Signs (last 24 hours): Temp Pulse Resp BP Pulse Ox 97.8 F 83 20 118/67 99 03/29/18 07:00 03/29/18 12:00 03/29/18 07:00 03/29/18 07:00 03/29/18 07:00 Intake and Output: 03/29/18 03/29/18 06:59 18:59 Intake Total 400 Balance 400 - Medications Medications: Current Medications Alprazolam (Xanax) 0.5 mg PO Q12 [facility] Last Admin: 03/29/18 10:30 Dose: 0.5 mg Aspirin (Ecotrin) 81 mg PO DAILY [facility] Last Admin: 03/29/18 10:30 Dose: 81 mg Chlorpromazine (Thorazine) 25 mg PO Q6H PRN PRN Reason: Hiccups Last Admin: 03/28/18 21:38 Dose: 25 mg Clopidogrel Bisulfate (Plavix) 75 mg PO DAILY [facility] Last Admin: 03/29/18 10:30 Dose: 75 mg Demeclocycline HCl (Declomycin) 150 mg PO BID [facility] PRN Reason: Protocol Last Admin: 03/29/18 10:30 Dose: 150 mg Dexamethasone (Decadron) 2 mg PO BID [facility] Last Admin: 03/29/18 10:33 Dose: 2 mg Diclofenac Sodium (Voltaren) 75 mg PO BID [facility] Last Admin: 03/29/18 10:31 Dose: 75 mg Famotidine (Pepcid) 20 mg PO DAILY [facility] Last Admin: 03/29/18 10:30 Dose: 20 mg Fentanyl (Duragesic) 1 patch TD Q72 [facility] Ferrous Sulfate (Feosol) 325 mg PO DAILY [facility] Last Admin: 03/29/18 10:30 Dose: 325 mg Lactulose (Enulose) 20 gm PO HS [facility] Rosuvastatin Calcium (Crestor) 20 mg PO HS [facility] Last Admin: 03/28/18 21:36 Dose: 20 mg Sodium Chloride (Sodium Chloride Tab) 1 gm PO BID [facility] Last Admin: 03/29/18 10:29 Dose: 1 gm - Labs Labs: 03/29/18 08:32 03/27/18 08:53 - Head Exam Head Exam: ATRAUMATIC - Eye Exam Eye Exam: Normal appearance - ENT Exam ENT Exam: Mucous Membranes Dry - Respiratory Exam Respiratory Exam: NORMAL BREATHING PATTERN - Cardiovascular Exam Cardiovascular Exam: +S1, +S2 - GI/Abdominal Exam GI & Abdominal Exam: Normal Bowel Sounds Assessment and Plan (1) Pancytopenia Assessment & Plan: improving s/p PRBC and platelet transfusion s/p Granix Status: Acute (2) Diplopia Assessment & Plan: for MRI brain ophthalmology evaluation Status: Acute (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
--- NOTE | 2018-03-29 15:53 | CP.PCM.PN ---
Subjective - Date & Time of Evaluation Date of Evaluation: 03/29/18 Time of Evaluation: 14:00 - Subjective Subjective: Has double vision, family at bedside. Objective - Vital Signs/Intake and Output Vital Signs (last 24 hours): Temp Pulse Resp BP Pulse Ox 97.8 F 83 20 118/67 99 03/29/18 07:00 03/29/18 12:00 03/29/18 07:00 03/29/18 07:00 03/29/18 07:00 Intake and Output: 03/29/18 03/29/18 06:59 18:59 Intake Total 400 Balance 400 - Medications Medications: Current Medications Acetaminophen (Tylenol 325mg Tab) 650 mg PO Q6 PRN PRN Reason: Pain, moderate (4-7) Alprazolam (Xanax) 0.5 mg PO Q12 [facility] Last Admin: 03/29/18 10:30 Dose: 0.5 mg Aspirin (Ecotrin) 81 mg PO DAILY [facility] Last Admin: 03/29/18 10:30 Dose: 81 mg Chlorpromazine (Thorazine) 25 mg PO Q6H PRN PRN Reason: Hiccups Last Admin: 03/28/18 21:38 Dose: 25 mg Clopidogrel Bisulfate (Plavix) 75 mg PO DAILY [facility] Last Admin: 03/29/18 10:30 Dose: 75 mg Demeclocycline HCl (Declomycin) 150 mg PO BID [facility] PRN Reason: Protocol Last Admin: 03/29/18 10:30 Dose: 150 mg Dexamethasone (Decadron) 2 mg PO BID [facility] Last Admin: 03/29/18 10:33 Dose: 2 mg Diclofenac Sodium (Voltaren) 75 mg PO BID [facility] Last Admin: 03/29/18 10:31 Dose: 75 mg Famotidine (Pepcid) 20 mg PO DAILY [facility] Last Admin: 03/29/18 10:30 Dose: 20 mg Fentanyl (Duragesic) 1 patch TD Q72 [facility] Ferrous Sulfate (Feosol) 325 mg PO DAILY [facility] Last Admin: 03/29/18 10:30 Dose: 325 mg Lactulose (Enulose) 20 gm PO HS [facility] Rosuvastatin Calcium (Crestor) 20 mg PO HS [facility] Last Admin: 03/28/18 21:36 Dose: 20 mg Sodium Chloride (Sodium Chloride Tab) 1 gm PO BID [facility] Last Admin: 03/29/18 10:29 Dose: 1 gm - Labs Labs: 03/29/18 08:32 03/27/18 08:53 - Head Exam Head Exam: ATRAUMATIC - Eye Exam Eye Exam: Normal appearance - ENT Exam ENT Exam: Mucous Membranes Dry - Respiratory Exam Respiratory Exam: NORMAL BREATHING PATTERN - Cardiovascular Exam Cardiovascular Exam: +S1, +S2 - GI/Abdominal Exam GI & Abdominal Exam: Normal Bowel Sounds Assessment and Plan (1) Pancytopenia Assessment & Plan: improved s/p growth factor and transfusion support Status: Acute (2) Diplopia Assessment & Plan: rule out brain metastasis Status: Acute (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
[2018-03-29] MEDS: ROSUVASTATIN 20MG PO SCH (21:02)
--- NOTE | 2018-03-29 22:39 | CON ---
DATE: 03/29/2018 HISTORY OF PRESENT ILLNESS: The patient is a 62-year-old male with past medical history of coronary artery disease with surgery, and he was admitted for metastatic lung cancer. He reports 6-day history of double vision that is constant, but is only on very far distance. He does not report any pain. He reports no history of ocular surgery. PAST MEDICAL HISTORY: As above. PHYSICAL EXAMINATION: EYES: His vision in the right and left eye on near vision is 20/17, both eyes without correction. He has no afferent pupillary defect. His cornea and anterior chambers lens appear clear. His posterior exam appears within normal limits. His extraocular movements show degreased superior movement of his left eye. He has no other deficits in extraocular movements. He has no lid abnormalities in both eyes. ASSESSMENT: Diplopia, due to strabismus. PLAN: At this point, the patient has had radio CT scan, which has ruled out any neurologic mass. So at this point for his diplopia, he will be treated as an outpatient. Once he is discharged, he will need to make an appointment in the office for the measurement. If there are any questions, you can always call [phone]. Loco Holly MD
[2018-03-30 08:01] LABS: BASO % 0.1 % (0.0-2.0); EOS % 0.2 % (0.0-4.0); HEMOGLOBIN 6.9 g/dL (12.0-18.0); LYMPH # 1.5 K/uL (1.0-4.3); LYMPH % 21.2 % (20.0-40.0); MEAN CELL VOLUME 90.7 fL (80.0-94.0); MEAN CORPUSCULAR HEMOGLOBIN 31.9 pg (27.0-31.0); MEAN CORPUSCULAR HGB CONC 35.1 g/dL (33.0-37.0); MONO # 0.7 K/uL (0.0-0.8); MONO % 10.5 % (0.0-10.0); NEUT # 4.7 K/uL (1.8-7.0); NRBC % 0.4 % (0.0-2.0); RBC 2.17 Mil/uL (4.40-5.90); RED CELL DISTRIBUTION WIDTH 19.4 % (11.5-14.5); WHITE BLOOD COUNT 6.9 K/uL (4.8-10.8)
--- NOTE | 2018-03-30 09:34 | CP.PCM.CON ---
History of Present Illness - History of Present Illness History of Present Illness: Mr Jorge Sim is a 62 year old male with extensive stage small cell now with brain metastases. He was initially diagnosed in June 2017. At that time, he was found to have a lung mass as well as diffuse bony metastases and liver lesions. A biopsy on July 04, 2017 of the liver confirmed small cell lung cancer. He started chemotherapy with you. His last chemotherapy was last . Most recently, he was admitted to [facility] with new onset double vision for three days. He also had some dizziness. He also was complaining of right leg numbness. A CT of the head on March 26, [address] of the chest, abdomen and pelvis on March 29, 2018 revealed stable pulmonary nodules. There were multiple liver lesions. There was widespread bone metastases. A MRI of the brain on March 29, 2018 revealed multiple cortical brain lesions. He is referred for palliative radiation. Review of Systems - Constitutional Constitutional: Weakness - EENT Eyes: Diplopia - Musculoskeletal Musculoskeletal: Back Pain - Neurological Neurological: Paresthesias Past Patient History - Infectious Disease Hx of Infectious Diseases: None - Past Medical History & Family History Past Medical History?: Yes - Past Social History Smoking Status: Former Smoker Alcohol: None Home Situation {Lives}: With Family - CARDIAC Hx Hypercholesterolemia: Yes Hx Hypertension: Yes Hx Pacemaker: No - PULMONARY Hx Respiratory Disorders: No - NEUROLOGICAL Hx Neurological Disorder: No Hx Paralysis: No - HEENT Hx HEENT Problems: No - RENAL Hx Chronic Kidney Disease: No - ENDOCRINE/METABOLIC Hx Endocrine Disorders: No - HEMATOLOGICAL/ONCOLOGICAL Hx Anemia: Yes - INTEGUMENTARY Hx Dermatological Problems: No - MUSCULOSKELETAL/RHEUMATOLOGICAL Hx Arthritis: Yes (HX OF B/L HIP PAIN L>R) Hx Falls: Yes - GASTROINTESTINAL Hx Gastritis: Yes - GENITOURINARY/GYNECOLOGICAL Hx Genitourinary Disorders: No - PSYCHIATRIC Hx Anxiety: Yes Hx Substance Use: No - SURGICAL HISTORY Hx Coronary Artery Bypass Graft: Yes - ANESTHESIA Hx Anesthesia: Yes Hx Anesthesia Reactions: No Hx Malignant Hyperthermia: No Meds Allergies/Adverse Reactions: Allergies Allergy/AdvReac Type Severity Reaction Status Date / Time No Known Allergies Allergy Verified 03/13/18 11:41 - Medications Medications: Current Medications Acetaminophen (Tylenol 325mg Tab) 650 mg PO Q6 PRN PRN Reason: Pain, moderate (4-7) Last Admin: 03/29/18 23:58 Dose: 650 mg Alprazolam (Xanax) 0.5 mg PO Q12 [facility] Last Admin: 03/29/18 21:02 Dose: 0.5 mg Aspirin (Ecotrin) 81 mg PO DAILY [facility] Last Admin: 03/29/18 10:30 Dose: 81 mg Chlorpromazine (Thorazine) 25 mg PO Q6H PRN PRN Reason: Hiccups Last Admin: 03/29/18 18:54 Dose: 25 mg Clopidogrel Bisulfate (Plavix) 75 mg PO DAILY [facility] Last Admin: 03/29/18 10:30 Dose: 75 mg Demeclocycline HCl (Declomycin) 150 mg PO BID [facility] PRN Reason: Protocol Last Admin: 03/29/18 18:54 Dose: 150 mg Dexamethasone (Decadron) 2 mg PO BID [facility] Last Admin: 03/29/18 18:54 Dose: 2 mg Diclofenac Sodium (Voltaren) 75 mg PO BID [facility] Last Admin: 03/29/18 18:54 Dose: 75 mg Famotidine (Pepcid) 20 mg PO DAILY [facility] Last Admin: 03/29/18 10:30 Dose: 20 mg Fentanyl (Duragesic) 1 patch TD Q72H [facility] Last Admin: 03/29/18 20:15 Dose: 1 patch Ferrous Sulfate (Feosol) 325 mg PO DAILY [facility] Last Admin: 03/29/18 10:30 Dose: 325 mg Lactulose (Enulose) 20 gm PO HS [facility] Last Admin: 03/29/18 21:02 Dose: 20 gm Rosuvastatin Calcium (Crestor) 20 mg PO HS [facility] Last Admin: 03/29/18 21:02 Dose: 20 mg Sodium Chloride (Sodium Chloride Tab) 1 gm PO BID [facility] Last Admin: 03/29/18 18:55 Dose: 1 gm Tramadol HCl (Ultram) 50 mg PO Q6H PRN PRN Reason: Pain, severe (8-10) Last Admin: 03/29/18 19:44 Dose: 50 mg Physical Exam - Eye Exam Additional comments: left eye ptosis - ENT Exam ENT Exam: Mucous Membranes Moist - Respiratory Exam Respiratory Exam: Clear to Auscultation Bilateral - Cardiovascular Exam Cardiovascular Exam: REGULAR RHYTHM - GI/Abdominal Exam GI & Abdominal Exam: Normal Bowel Sounds - Neurological Exam Neurological exam: Oriented x3 Results - Vital Signs Recent Vital Signs: Last Vital Signs Temp 98.2 F 03/30/18 07:00 Pulse 80 03/30/18 07:00 Resp 20 03/30/18 07:00 BP 105/57 L 03/30/18 07:00 Pulse Ox 99 03/30/18 07:00 - Labs Result Diagrams: 03/30/18 07:48 03/27/18 08:53 Labs: Laboratory Results - last 24 hr 03/30/18 07:48 WBC 6.9 RBC 2.17 L Hgb 6.9 L Hct 19.7 L MCV 90.7 MCH 31.9 H MCHC 35.1 RDW 19.4 H Plt Count 40 L MPV 10.0 Neut % (Auto) 68.0 Lymph % (Auto) 21.2 [place] % (Auto) 10.5 H Eos % (Auto) 0.2 Baso % (Auto) 0.1 Neut # (Auto) 4.7 Lymph # (Auto) 1.5 [place] # (Auto) 0.7 Eos # (Auto) 0.0 Baso # (Auto) 0.0 Assessment & Plan - Assessment and Plan (Free Text) Assessment: Mr Jorge Sim is a 62 year old male with extensive stage small cell now with brain metastases. In reviewing his imaging studies, we also saw significant lesion near his lower thoracic spine vertebral body abutting the canal. In light of this we ordered a MRI of the thoracic spine for better characterization. Because the lesion on the MRI abuts the cord , we will offering treatment to this region as well. Also, we saw a soft tissue lesion near his right SI region which could explain his paresthesia on the right leg. We spoke to the patient about palliative radiation therapy to all three areas. Informed consent was obtained. We will simulate and begin today
[2018-03-30] MEDS: Diclofenac Sodium Delayed Release 75 mg EC Tab PO SCH ×2 (10:00→17:34)
--- NOTE | 2018-03-30 11:34 | MRI ---
Date of service: 03/29/2018 PROCEDURE: MR THORACIC SPINE WITHOUT CONTRAST HISTORY: lesion around T10 vertebral body abutting canal, HISTORY OF LUNG CANCER COMPARISON: None available. TECHNIQUE: Multiecho multiplanar sequences were performed through the thoracic spine without the use of intravenous contrast. FINDINGS: ALIGNMENT: There is normal alignment of the thoracic vertebral bodies. There is normal thoracic kyphosis. VERTEBRA: Vertebral body height are preserved. MARROW: There are multiple T1 and T2 hypo intense and STIR hyperintense lesions. throughout the thoracic vertebral bodies, with diffuse marrow infiltration at T2, T4, T5 in T9 and presumable inferior endplate pathologic fracture in the T5 vertebral body. There is also involvement of the spinous process at T2, T9 and T11. At T9 and T10 there is abnormal T2/stir hyperintense soft tissue in posterior vertebral body destroying the posterior cortex with extension into the right posterior lateral ventral epidural space indenting the thecal sac without evidence for cord compression. There is involvement of the right pedicle at T10. PARASPINAL SOFT TISSUES: The paraspinous soft tissues are normal. CORD: The thoracic cord is normal in contour, caliber and has normal intrinsic signal. No evidence for cord compression. DISCS: At T8-9 central disc protrusion indents the ventral thecal sac without spinal canal stenosis. No neural foraminal narrowing. The remaining disc heights are preserved. OTHER FINDINGS: Also noted are multiple metastatic lesions in the liver. IMPRESSION: 1. Diffuse osseous metastasis. 2. At T10 destructive lesion involves the posterior vertebral body and posterior cortex with extension into the right neural foramen and right posterolateral ventral epidural space indenting the thecal sac without evidence for cord compression. 3. At T8-9 central disc protrusion indents the ventral thecal sac without spinal canal stenosis or cord compression. 4. At T9 abnormal metastatic lesion involves the posterior vertebral body and cortex and extends into the right posterior wall lateral ventral epidural space without cord compression. A preliminary report was provided by [facility].
[2018-03-30 14:17] LABS: BASO % 0.4 % (0.0-2.0); EOS % 0.4 % (0.0-4.0); HEMOGLOBIN 8.6 g/dL (12.0-18.0); LYMPH # 2.2 K/uL (1.0-4.3); MEAN CELL VOLUME 91.2 fL (80.0-94.0); MEAN CORPUSCULAR HEMOGLOBIN 32.3 pg (27.0-31.0); MEAN CORPUSCULAR HGB CONC 35.4 g/dL (33.0-37.0); MEAN PLATELET VOLUME 9.6 fL (7.2-11.7); MONO # 0.8 K/uL (0.0-0.8); MONO % 9.2 % (0.0-10.0); NEUT # 5.9 K/uL (1.8-7.0); NRBC % 0.4 % (0.0-2.0); RBC 2.66 Mil/uL (4.40-5.90); RED CELL DISTRIBUTION WIDTH 18.9 % (11.5-14.5)
--- NOTE | 2018-03-30 20:34 | CP.PCM.PN ---
Subjective - Date & Time of Evaluation Date of Evaluation: 03/30/18 Time of Evaluation: 09:40 - Subjective Subjective: clinically same Objective - Vital Signs/Intake and Output Vital Signs (last 24 hours): Temp Pulse Resp BP Pulse Ox 97.2 F L 87 20 104/58 L 99 03/30/18 15:00 03/30/18 15:00 03/30/18 15:00 03/30/18 15:00 03/30/18 15:00 - Medications Medications: Current Medications Acetaminophen (Tylenol 325mg Tab) 650 mg PO Q6 PRN PRN Reason: Pain, moderate (4-7) Last Admin: 03/29/18 23:58 Dose: 650 mg Alprazolam (Xanax) 0.5 mg PO Q12 [facility] Last Admin: 03/30/18 10:00 Dose: Not Given Aspirin (Ecotrin) 81 mg PO DAILY [facility] Last Admin: 03/30/18 14:18 Dose: 81 mg Chlorpromazine (Thorazine) 25 mg PO Q6H PRN PRN Reason: Hiccups Last Admin: 03/29/18 18:54 Dose: 25 mg Clopidogrel Bisulfate (Plavix) 75 mg PO DAILY [facility] Last Admin: 03/30/18 14:18 Dose: 75 mg Dexamethasone (Decadron) 2 mg PO BID [facility] Last Admin: 03/30/18 17:34 Dose: 2 mg Diclofenac Sodium (Voltaren) 75 mg PO BID [facility] Last Admin: 03/30/18 17:34 Dose: 75 mg Famotidine (Pepcid) 20 mg PO DAILY [facility] Last Admin: 03/30/18 14:18 Dose: 20 mg Fentanyl (Duragesic) 1 patch TD Q72H [facility] Last Admin: 03/29/18 20:15 Dose: 1 patch Ferrous Sulfate (Feosol) 325 mg PO DAILY [facility] Last Admin: 03/30/18 14:17 Dose: 325 mg Lactulose (Enulose) 20 gm PO HS [facility] Last Admin: 03/29/18 21:02 Dose: 20 gm Rosuvastatin Calcium (Crestor) 20 mg PO HS [facility] Last Admin: 03/29/18 21:02 Dose: 20 mg Sodium Chloride (Sodium Chloride Tab) 1 gm PO BID [facility] Last Admin: 03/30/18 17:33 Dose: 1 gm Tramadol HCl (Ultram) 50 mg PO Q6H PRN PRN Reason: Pain, severe (8-10) Last Admin: 03/29/18 19:44 Dose: 50 mg - Labs Labs: 03/30/18 14:07 03/27/18 08:53
[2018-03-30] MEDS: ROSUVASTATIN 20MG PO SCH (22:08)
[2018-03-31 08:29] LABS: BASO % 0.2 % (0.0-2.0); EOS % 0.2 % (0.0-4.0); HEMOGLOBIN 7.6 g/dL (12.0-18.0); LYMPH # 2.1 K/uL (1.0-4.3); LYMPH % 21.1 % (20.0-40.0); MEAN CELL VOLUME 91.2 fL (80.0-94.0); MEAN CORPUSCULAR HEMOGLOBIN 31.9 pg (27.0-31.0); MONO # 1.1 K/uL (0.0-0.8); MONO % 11.2 % (0.0-10.0); NEUT # 6.7 K/uL (1.8-7.0); NEUT % 67.3 % (50.0-75.0); NRBC % 0.2 % (0.0-2.0); RBC 2.38 Mil/uL (4.40-5.90); WHITE BLOOD COUNT 9.9 K/uL (4.8-10.8)
[2018-03-31] MEDS: Diclofenac Sodium Delayed Release 75 mg EC Tab PO SCH ×2 (09:05→17:44)
--- NOTE | 2018-03-31 14:56 | CP.PCM.PN ---
Subjective - Date & Time of Evaluation Date of Evaluation: 03/31/18 Time of Evaluation: 08:15 - Subjective Subjective: clinically same Objective - Vital Signs/Intake and Output Vital Signs (last 24 hours): Temp Pulse Resp BP Pulse Ox 98.1 F 84 20 104/64 100 03/31/18 07:00 03/31/18 07:40 03/31/18 07:00 03/31/18 07:00 03/31/18 07:00 - Medications Medications: Current Medications Acetaminophen (Tylenol 325mg Tab) 650 mg PO Q6 PRN PRN Reason: Pain, moderate (4-7) Last Admin: 03/30/18 23:51 Dose: 650 mg Alprazolam (Xanax) 0.5 mg PO Q12 [facility] Last Admin: 03/31/18 09:04 Dose: 0.5 mg Aspirin (Ecotrin) 81 mg PO DAILY [facility] Last Admin: 03/31/18 09:05 Dose: 81 mg Chlorpromazine (Thorazine) 25 mg PO Q6H PRN PRN Reason: Hiccups Last Admin: 03/29/18 18:54 Dose: 25 mg Clopidogrel Bisulfate (Plavix) 75 mg PO DAILY [facility] Last Admin: 03/31/18 09:05 Dose: 75 mg Dexamethasone (Decadron) 2 mg PO BID [facility] Last Admin: 03/31/18 09:06 Dose: 2 mg Diclofenac Sodium (Voltaren) 75 mg PO BID [facility] Last Admin: 03/31/18 09:05 Dose: 75 mg Famotidine (Pepcid) 20 mg PO DAILY [facility] Last Admin: 03/31/18 09:05 Dose: 20 mg Fentanyl (Duragesic) 1 patch TD Q72H [facility] Last Admin: 03/29/18 20:15 Dose: 1 patch Ferrous Sulfate (Feosol) 325 mg PO DAILY [facility] Last Admin: 03/31/18 09:04 Dose: 325 mg Lactulose (Enulose) 20 gm PO HS [facility] Last Admin: 03/30/18 22:08 Dose: 20 gm Rosuvastatin Calcium (Crestor) 20 mg PO HS [facility] Last Admin: 03/30/18 22:08 Dose: 20 mg Sodium Chloride (Sodium Chloride Tab) 1 gm PO BID [facility] Last Admin: 03/31/18 09:05 Dose: 1 gm Tramadol HCl (Ultram) 50 mg PO Q6H PRN PRN Reason: Pain, severe (8-10) Last Admin: 03/30/18 20:40 Dose: 50 mg - Labs Labs: 03/31/18 08:21 03/27/18 08:53 - Constitutional Appears: Well - Head Exam Head Exam: ATRAUMATIC, NORMAL INSPECTION, NORMOCEPHALIC - Eye Exam Eye Exam: EOMI, Normal appearance, PERRL Pupil Exam: NORMAL ACCOMODATION, PERRL - ENT Exam ENT Exam: Mucous Membranes Moist, Normal Exam - Neck Exam Neck Exam: Full ROM, Normal Inspection. absent: Lymphadenopathy - Respiratory Exam Respiratory Exam: Decreased Breath Sounds - Cardiovascular Exam Cardiovascular Exam: REGULAR RHYTHM, +S1, +S2 - GI/Abdominal Exam GI & Abdominal Exam: Soft, Diminished Bowel Sounds - Rectal Exam Rectal Exam: Deferred
[2018-03-31] MEDS: ROSUVASTATIN 20MG PO SCH (22:32)
[2018-04-01] MEDS: Diclofenac Sodium Delayed Release 75 mg EC Tab PO SCH ×2 (09:56→17:32)
--- NOTE | 2018-04-01 18:10 | CP.PCM.PN ---
Subjective - Date & Time of Evaluation Date of Evaluation: 04/01/18 Time of Evaluation: 18:08 - Subjective Subjective: CHART REVIEWED. PT SEEN AND EXAMINED. COVERING DR Debo MILLER PT ALERT, EATING,. NO SOB AT REST. ROS; OTHERWISE NEG. Objective - Vital Signs/Intake and Output Vital Signs (last 24 hours): Temp Pulse Resp BP Pulse Ox 98.4 F 78 20 127/65 100 04/01/18 15:13 04/01/18 15:13 04/01/18 15:13 04/01/18 15:13 04/01/18 15:13 Intake and Output: 04/01/18 04/01/18 06:59 18:59 Intake Total 200 Balance 200 - Medications Medications: Current Medications Acetaminophen (Tylenol 325mg Tab) 650 mg PO Q6 PRN PRN Reason: Pain, moderate (4-7) Last Admin: 03/31/18 17:46 Dose: 650 mg Alprazolam (Xanax) 0.5 mg PO Q12 [facility] Last Admin: 04/01/18 09:55 Dose: 0.5 mg Aspirin (Ecotrin) 81 mg PO DAILY [facility] Last Admin: 04/01/18 09:55 Dose: 81 mg Chlorpromazine (Thorazine) 25 mg PO Q6H PRN PRN Reason: Hiccups Last Admin: 03/29/18 18:54 Dose: 25 mg Clopidogrel Bisulfate (Plavix) 75 mg PO DAILY [facility] Last Admin: 04/01/18 09:55 Dose: 75 mg Dexamethasone (Decadron) 2 mg PO BID [facility] Last Admin: 04/01/18 17:31 Dose: 2 mg Diclofenac Sodium (Voltaren) 75 mg PO BID [facility] Last Admin: 04/01/18 17:32 Dose: 75 mg Famotidine (Pepcid) 20 mg PO DAILY [facility] Last Admin: 04/01/18 09:55 Dose: 20 mg Fentanyl (Duragesic) 1 patch TD Q72H [facility] Last Admin: 03/29/18 20:15 Dose: 1 patch Ferrous Sulfate (Feosol) 325 mg PO DAILY [facility] Last Admin: 04/01/18 09:55 Dose: 325 mg Lactulose (Enulose) 20 gm PO HS [facility] Last Admin: 03/31/18 22:32 Dose: 20 gm Rosuvastatin Calcium (Crestor) 20 mg PO HS [facility] Last Admin: 03/31/18 22:32 Dose: 20 mg Sodium Chloride (Sodium Chloride Tab) 1 gm PO BID [facility] Last Admin: 04/01/18 17:31 Dose: 1 gm Tramadol HCl (Ultram) 50 mg PO Q6H PRN PRN Reason: Pain, severe (8-10) Last Admin: 03/31/18 22:31 Dose: 50 mg - Labs Labs: 03/31/18 08:21 03/27/18 08:53 - Constitutional Appears: No Acute Distress, Chronically Ill - Head Exam Head Exam: ATRAUMATIC, NORMOCEPHALIC - Eye Exam Eye Exam: absent: Scleral icterus - ENT Exam ENT Exam: Mucous Membranes Moist - Neck Exam Neck Exam: Normal Inspection - Respiratory Exam Respiratory Exam: Decreased Breath Sounds. absent: Respiratory Distress - Cardiovascular Exam Cardiovascular Exam: RRR, +S1, +S2 - GI/Abdominal Exam GI & Abdominal Exam: Soft. absent: Tenderness - Rectal Exam Rectal Exam: Deferred - Extremities Exam Extremities Exam: absent: Calf Tenderness, Pedal Edema - Back Exam Back Exam: absent: CVA tenderness (L), CVA tenderness (R) - Neurological Exam Neurological Exam: Alert, Awake Additional comments: MOVES ALL EXT - Psychiatric Exam Psychiatric exam: Normal Mood - Skin Skin Exam: Rash Assessment and Plan (1) Hypertension Status: Acute (2) CAD (coronary artery disease) Status: Acute (3) S/P CABG (coronary artery bypass graft) Status: Acute (4) Diplopia Status: Acute (5) Disorder of vision Status: Acute (6) Metastatic cancer Status: Acute (7) Anemia Status: Acute (8) Metastatic cancer to liver Status: Acute - Assessment and Plan (Free Text) Assessment: RESP STATUS UNLABORED, CONT PULM TOILET, NEB BD. MONITOR O2 SAT. FOR RT TX PER DR SPEARS. MONITOR H/H. XRAYS REVIEWED. PROG POOR. DISCUSSED WITH STAFF AT LENGTH.
[2018-04-01] MEDS: ROSUVASTATIN 20MG PO SCH (21:35)
[2018-04-02] MEDS: Diclofenac Sodium Delayed Release 75 mg EC Tab PO SCH ×2 (10:46→18:20)
--- NOTE | 2018-04-02 14:48 | CP.PCM.PN ---
Subjective - Date & Time of Evaluation Date of Evaluation: 04/02/18 Time of Evaluation: 14:45 - Subjective Subjective: COVERING DR Debo MILLER. PT ALERT, DENIES SOB. ROS; OTHERWISE NEG. Objective - Vital Signs/Intake and Output Vital Signs (last 24 hours): Temp Pulse Resp BP Pulse Ox 98.0 F 71 20 119/64 100 04/02/18 07:00 04/02/18 07:00 04/02/18 07:00 04/02/18 07:00 04/02/18 07:00 Intake and Output: 04/02/18 04/02/18 06:59 18:59 Intake Total 320 Balance 320 - Medications Medications: Current Medications Acetaminophen (Tylenol 325mg Tab) 650 mg PO Q6 PRN PRN Reason: Pain, moderate (4-7) Last Admin: 03/31/18 17:46 Dose: 650 mg Acetaminophen (Tylenol 325mg Tab) 650 mg PO ONCE PRN PRN Reason: Give before Blood Transf. Alprazolam (Xanax) 0.5 mg PO Q12 [facility] Last Admin: 04/02/18 10:45 Dose: 0.5 mg Aspirin (Ecotrin) 81 mg PO DAILY [facility] Last Admin: 04/02/18 12:25 Dose: 81 mg Chlorpromazine (Thorazine) 25 mg PO Q6H PRN PRN Reason: Hiccups Last Admin: 03/29/18 18:54 Dose: 25 mg Clopidogrel Bisulfate (Plavix) 75 mg PO DAILY [facility] Last Admin: 04/02/18 10:45 Dose: 75 mg Dexamethasone (Decadron) 2 mg PO BID [facility] Last Admin: 04/02/18 10:46 Dose: 2 mg Diclofenac Sodium (Voltaren) 75 mg PO BID [facility] Last Admin: 04/02/18 10:46 Dose: 75 mg Diphenhydramine HCl (Benadryl) 25 mg PO ONCE PRN PRN Reason: To be given prior Blood trans. Famotidine (Pepcid) 20 mg PO DAILY [facility] Last Admin: 04/02/18 10:50 Dose: 20 mg Fentanyl (Duragesic) 1 patch TD Q72H [facility] Last Admin: 04/01/18 20:32 Dose: 1 patch Ferrous Sulfate (Feosol) 325 mg PO DAILY [facility] Last Admin: 04/02/18 10:45 Dose: 325 mg Lactulose (Enulose) 20 gm PO HS [facility] Last Admin: 04/01/18 21:35 Dose: 20 gm Rosuvastatin Calcium (Crestor) 20 mg PO HS [facility] Last Admin: 04/01/18 21:35 Dose: 20 mg Sodium Chloride (Sodium Chloride Tab) 1 gm PO BID [facility] Last Admin: 04/02/18 10:45 Dose: 1 gm Tramadol HCl (Ultram) 50 mg PO Q6H PRN PRN Reason: Pain, severe (8-10) Last Admin: 03/31/18 22:31 Dose: 50 mg - Labs Labs: 03/31/18 08:21 03/27/18 08:53 - Constitutional Appears: No Acute Distress, Cachectic, Chronically Ill - Head Exam Head Exam: ATRAUMATIC, NORMOCEPHALIC - Eye Exam Eye Exam: EOMI, Normal appearance - ENT Exam ENT Exam: Mucous Membranes Moist - Neck Exam Neck Exam: Normal Inspection - Respiratory Exam Respiratory Exam: Decreased Breath Sounds - Cardiovascular Exam Cardiovascular Exam: RRR, +S1, +S2 - GI/Abdominal Exam GI & Abdominal Exam: Soft. absent: Tenderness - Rectal Exam Rectal Exam: Deferred - Extremities Exam Extremities Exam: absent: Calf Tenderness, Pedal Edema - Back Exam Back Exam: absent: CVA tenderness (L), CVA tenderness (R) - Neurological Exam Neurological Exam: Alert, Awake, CN II-XII Intact, Oriented x3 - Psychiatric Exam Psychiatric exam: Normal Mood - Skin Skin Exam: absent: Rash Assessment and Plan (1) Hypertension Status: Acute (2) CAD (coronary artery disease) Status: Acute (3) S/P CABG (coronary artery bypass graft) Status: Acute (4) Diplopia Status: Acute (5) Disorder of vision Status: Acute (6) Metastatic cancer Status: Acute (7) Anemia Status: Acute (8) Metastatic cancer to liver Status: Acute - Assessment and Plan (Free Text) Assessment: RESP STATUS UNLABORED., CXR REVIEWED., CONT NEB BD., PULM TOILET., MONITOR O2 SAT. FOR TRANS PRBC X 2 U. FOR RT. PROG POOR.,DISCUSSED WITH STAFF AT LENGTH AND FAMILY AT BEDSIDE.
[2018-04-02] MEDS: ROSUVASTATIN 20MG PO SCH (21:41)
--- NOTE | 2018-04-02 22:26 | CP.PCM.PN ---
Subjective - Date & Time of Evaluation Date of Evaluation: 04/02/18 Time of Evaluation: 20:00 - Subjective Subjective: Feeling better, receiving 2U PRBC Objective - Vital Signs/Intake and Output Vital Signs (last 24 hours): Temp Pulse Resp BP Pulse Ox 98.3 F 83 18 122/63 99 04/02/18 21:40 04/02/18 21:40 04/02/18 21:40 04/02/18 21:40 04/02/18 15:40 Intake and Output: 04/02/18 04/03/18 18:59 06:59 Intake Total 0 325 Balance 0 325 - Medications Medications: Current Medications Acetaminophen (Tylenol 325mg Tab) 650 mg PO Q6 PRN PRN Reason: Pain, moderate (4-7) Last Admin: 03/31/18 17:46 Dose: 650 mg Aspirin (Ecotrin) 81 mg PO DAILY [facility] Last Admin: 04/02/18 12:25 Dose: 81 mg Chlorpromazine (Thorazine) 25 mg PO Q6H PRN PRN Reason: Hiccups Last Admin: 03/29/18 18:54 Dose: 25 mg Clopidogrel Bisulfate (Plavix) 75 mg PO DAILY [facility] Last Admin: 04/02/18 10:45 Dose: 75 mg Dexamethasone (Decadron) 2 mg PO BID [facility] Last Admin: 04/02/18 17:32 Dose: 2 mg Diclofenac Sodium (Voltaren) 75 mg PO BID [facility] Last Admin: 04/02/18 18:20 Dose: 75 mg Famotidine (Pepcid) 20 mg PO DAILY [facility] Last Admin: 04/02/18 10:50 Dose: 20 mg Ferrous Sulfate (Feosol) 325 mg PO DAILY [facility] Last Admin: 04/02/18 10:45 Dose: 325 mg Lactulose (Enulose) 20 gm PO HS [facility] Last Admin: 04/02/18 21:41 Dose: 20 gm Rosuvastatin Calcium (Crestor) 20 mg PO HS [facility] Last Admin: 04/02/18 21:41 Dose: 20 mg Sodium Chloride (Sodium Chloride Tab) 1 gm PO BID [facility] Last Admin: 04/02/18 17:31 Dose: 1 gm Tramadol HCl (Ultram) 50 mg PO Q6H PRN PRN Reason: Pain, severe (8-10) Last Admin: 03/31/18 22:31 Dose: 50 mg - Labs Labs: 07/14/18 08:21 03/27/18 08:53 - Head Exam Head Exam: ATRAUMATIC - Eye Exam Eye Exam: Normal appearance - ENT Exam ENT Exam: Mucous Membranes Dry - Respiratory Exam Respiratory Exam: NORMAL BREATHING PATTERN - Cardiovascular Exam Cardiovascular Exam: +S1, +S2 - GI/Abdominal Exam GI & Abdominal Exam: Normal Bowel Sounds - Extremities Exam Extremities Exam: Pedal Edema Assessment and Plan (1) Pancytopenia Assessment & Plan: secondary to chemotherapy and radiation improving 2U PRBC today Status: Acute (2) Diplopia Assessment & Plan: secondary to brain metastasis on palliative whole brain radiotherapy Status: Acute (3) Small cell lung cancer Assessment & Plan: stage IV outpatient treatment Status: Acute
[2018-04-03 07:42] LABS: BASO # 0.1 K/uL (0.0-0.2); BASO % 0.4 % (0.0-2.0); LYMPH # 2.4 K/uL (1.0-4.3); LYMPH % 16.8 % (20.0-40.0); MEAN CORPUSCULAR HEMOGLOBIN 32.2 pg (27.0-31.0); MEAN CORPUSCULAR HGB CONC 34.6 g/dL (33.0-37.0); MEAN PLATELET VOLUME 9.5 fL (7.2-11.7); MONO # 1.6 K/uL (0.0-0.8); NEUT # 10.4 K/uL (1.8-7.0); NEUT % 71.8 % (50.0-75.0); NRBC % 0.4 % (0.0-2.0); RBC 3.29 Mil/uL (4.40-5.90); RED CELL DISTRIBUTION WIDTH 17.3 % (11.5-14.5); WHITE BLOOD COUNT 14.5 K/uL (4.8-10.8)
[2018-04-03 07:58] LABS: HEMOGLOBIN 10.6 g/dL (12.0-18.0); PLATELET COUNT 91 K/uL (130-400)
[2018-04-03 08:55] LABS: ALB/GLOB RATIO 1.4 (1.0-2.1); ALBUMIN 3.7 g/dL (3.5-5.0); ALT/SGPT 60 U/L (21-72); AST/SGOT 70 U/L (17-59); BLOOD UREA NITROGEN 35 mg/dL (9-20); CALCIUM 8.9 mg/dl (8.6-10.4); GFR AFRICAN-AMERICAN > 60; GFR NON-AFRICAN AMERICAN > 60
[2018-04-03 09:54] LABS: BANDS 19 % (0-2); LYMPHOCYTE 16 % (20-40); METAMYELOCYTE 2 % (0-0); MONOCYTE 9 % (0-10); MYELOCYTE 8 % (0-0); NEUTROPHIL 44 % (50-75); NUCLEATED RED BLOOD CELL 4 % (0-0); PROMYELOCYTE 1 % (0-0); REACTIVE LYMPHOCYTES 1 % (0-0); TOTAL CELLS COUNTED 100
[2018-04-03 09:55] LABS: ANISOCYTOSIS SLIGHT; OVALOCYTES SLIGHT; PLATELET ESTIMATE DECREASED (NORMAL)
[2018-04-03] MEDS: Diclofenac Sodium Delayed Release 75 mg EC Tab PO SCH ×2 (11:02→17:23)
--- NOTE | 2018-04-03 11:04 | CP.PCM.PN ---
Subjective - Date & Time of Evaluation Date of Evaluation: 04/03/18 Time of Evaluation: 11:01 - Subjective Subjective: COVERING DR Debo MILLER PT FEELS TIRED. NO SOB. ROS; OTHERWISE NEG. Objective - Vital Signs/Intake and Output Vital Signs (last 24 hours): Temp Pulse Resp BP Pulse Ox 98.0 F 65 20 155/64 H 100 04/03/18 07:00 04/03/18 07:00 04/03/18 07:00 04/03/18 07:00 04/03/18 07:00 Intake and Output: 04/03/18 04/03/18 06:59 18:59 Intake Total 1075 Balance 1075 - Medications Medications: Current Medications Acetaminophen (Tylenol 325mg Tab) 650 mg PO Q6 PRN PRN Reason: Pain, moderate (4-7) Last Admin: 03/31/18 17:46 Dose: 650 mg Aspirin (Ecotrin) 81 mg PO DAILY [facility] Last Admin: 04/02/18 12:25 Dose: 81 mg Chlorpromazine (Thorazine) 25 mg PO Q6H PRN PRN Reason: Hiccups Last Admin: 03/29/18 18:54 Dose: 25 mg Clopidogrel Bisulfate (Plavix) 75 mg PO DAILY [facility] Last Admin: 04/02/18 10:45 Dose: 75 mg Dexamethasone (Decadron) 2 mg PO BID [facility] Last Admin: 04/02/18 17:32 Dose: 2 mg Diclofenac Sodium (Voltaren) 75 mg PO BID [facility] Last Admin: 04/02/18 18:20 Dose: 75 mg Famotidine (Pepcid) 20 mg PO DAILY [facility] Last Admin: 04/02/18 10:50 Dose: 20 mg Ferrous Sulfate (Feosol) 325 mg PO DAILY [facility] Last Admin: 04/02/18 10:45 Dose: 325 mg Lactulose (Enulose) 20 gm PO HS [facility] Last Admin: 04/02/18 21:41 Dose: 20 gm Rosuvastatin Calcium (Crestor) 20 mg PO HS [facility] Last Admin: 04/02/18 21:41 Dose: 20 mg Sodium Chloride (Sodium Chloride Tab) 1 gm PO BID [facility] Last Admin: 04/02/18 17:31 Dose: 1 gm Tramadol HCl (Ultram) 50 mg PO Q6H PRN PRN Reason: Pain, severe (8-10) Last Admin: 03/31/18 22:31 Dose: 50 mg - Labs Labs: 04/03/18 07:12 04/03/18 07:12 - Constitutional Appears: No Acute Distress, Chronically Ill - Head Exam Head Exam: ATRAUMATIC, NORMOCEPHALIC - Eye Exam Eye Exam: EOMI, Normal appearance - ENT Exam ENT Exam: Mucous Membranes Moist - Neck Exam Neck Exam: Normal Inspection - Respiratory Exam Respiratory Exam: Decreased Breath Sounds. absent: Respiratory Distress - Cardiovascular Exam Cardiovascular Exam: RRR, +S1, +S2 - GI/Abdominal Exam GI & Abdominal Exam: Soft. absent: Tenderness - Rectal Exam Rectal Exam: Deferred - Extremities Exam Extremities Exam: absent: Calf Tenderness, Pedal Edema - Back Exam Back Exam: absent: CVA tenderness (L), CVA tenderness (R) - Neurological Exam Neurological Exam: Alert, Awake, CN II-XII Intact, Oriented x3 - Psychiatric Exam Psychiatric exam: Normal Mood - Skin Skin Exam: absent: Rash Assessment and Plan (1) Hypertension Status: Acute (2) CAD (coronary artery disease) Status: Acute (3) S/P CABG (coronary artery bypass graft) Status: Acute (4) Diplopia Status: Acute (5) Disorder of vision Status: Acute (6) Metastatic cancer Status: Acute (7) Anemia Status: Acute (8) Metastatic cancer to liver Status: Acute - Assessment and Plan (Free Text) Assessment: RESP STATUS NO SIG CHANGE., CONT PULM TOILET., CXR REVIEWED., ADEQ OXYGENATION. , RT PER ONC. PROG POOR. DISCUSSED WITH STAFF AT LENGTH.
[2018-04-03 16:03] VITALS: BP 128/71; PULSE 68; RESP 20; TEMP 98.1; O2SAT 97
--- NOTE | 2018-04-03 17:20 | CP.PCM.PN ---
Subjective - Date & Time of Evaluation Date of Evaluation: 04/03/18 Time of Evaluation: 11:00 - Subjective Subjective: ALERT and oriented x3, denies any complaints, NAD. Objective - Vital Signs/Intake and Output Vital Signs (last 24 hours): Temp Pulse Resp BP Pulse Ox 98.1 F 68 20 128/71 97 04/03/18 15:00 04/03/18 15:00 04/03/18 15:00 04/03/18 15:00 04/03/18 15:00 Intake and Output: 04/03/18 04/03/18 06:59 18:59 Intake Total 1075 720 Balance 1075 720 - Medications Medications: Current Medications Acetaminophen (Tylenol 325mg Tab) 650 mg PO Q6 PRN PRN Reason: Pain, moderate (4-7) Last Admin: 03/31/18 17:46 Dose: 650 mg Aspirin (Ecotrin) 81 mg PO DAILY [facility] Last Admin: 04/03/18 11:00 Dose: 81 mg Chlorpromazine (Thorazine) 25 mg PO Q6H PRN PRN Reason: Hiccups Last Admin: 03/29/18 18:54 Dose: 25 mg Clopidogrel Bisulfate (Plavix) 75 mg PO DAILY [facility] Last Admin: 04/03/18 11:00 Dose: 75 mg Dexamethasone (Decadron) 2 mg PO BID [facility] Last Admin: 04/03/18 11:00 Dose: 2 mg Diclofenac Sodium (Voltaren) 75 mg PO BID [facility] Last Admin: 04/03/18 11:02 Dose: Not Given Famotidine (Pepcid) 20 mg PO DAILY [facility] Last Admin: 04/03/18 11:00 Dose: 20 mg Fentanyl (Duragesic) 1 patch TD Q72H [facility] Last Admin: 04/03/18 12:16 Dose: 1 patch Ferrous Sulfate (Feosol) 325 mg PO DAILY [facility] Last Admin: 04/03/18 11:01 Dose: 325 mg Lactulose (Enulose) 20 gm PO [facility] Last Admin: 04/02/18 21:41 Dose: 20 gm Rosuvastatin Calcium (Crestor) 20 mg PO HS [facility] Last Admin: 04/02/18 21:41 Dose: 20 mg Sodium Chloride (Sodium Chloride Tab) 1 gm PO BID [facility] Last Admin: 04/03/18 11:01 Dose: 1 gm Tramadol HCl (Ultram) 50 mg PO Q6H PRN PRN Reason: Pain, severe (8-10) Last Admin: 03/31/18 22:31 Dose: 50 mg - Labs Labs: 04/03/18 07:12 04/03/18 07:12 Assessment and Plan - Assessment and Plan (Free Text) Assessment: 62 year old male admitted with increased weekness with metastatic lesions in the brain and on radiation therapy at [facility] daily. Patient is seen and examined. Alert and oriented x3, denies acute pain or distress. Discussed with DR Sepulveda and DR Bae, plan to discharge home and continue with radiation therapy.
--- NOTE | 2018-04-03 17:36 | CP.PCM.PN ---
Subjective - Date & Time of Evaluation Date of Evaluation: 03/30/18 Time of Evaluation: 19:00 - Subjective Subjective: Feeling better Objective - Vital Signs/Intake and Output Vital Signs (last 24 hours): Temp Pulse Resp BP Pulse Ox 98.1 F 68 20 128/71 97 04/03/18 15:00 04/03/18 15:00 04/03/18 15:00 04/03/18 15:00 04/03/18 15:00 Intake and Output: 04/03/18 04/03/18 06:59 18:59 Intake Total 1075 720 Balance 1075 720 - Medications Medications: Current Medications Acetaminophen (Tylenol 325mg Tab) 650 mg PO Q6 PRN PRN Reason: Pain, moderate (4-7) Last Admin: 03/31/18 17:46 Dose: 650 mg Aspirin (Ecotrin) 81 mg PO DAILY [facility] Last Admin: 04/03/18 11:00 Dose: 81 mg Chlorpromazine (Thorazine) 25 mg PO Q6H PRN PRN Reason: Hiccups Last Admin: 03/29/18 18:54 Dose: 25 mg Clopidogrel Bisulfate (Plavix) 75 mg PO DAILY [facility] Last Admin: 04/03/18 11:00 Dose: 75 mg Dexamethasone (Decadron) 2 mg PO BID [facility] Last Admin: 04/03/18 17:23 Dose: 2 mg Diclofenac Sodium (Voltaren) 75 mg PO BID [facility] Last Admin: 04/03/18 17:23 Dose: 75 mg Famotidine (Pepcid) 20 mg PO DAILY [facility] Last Admin: 04/03/18 11:00 Dose: 20 mg Fentanyl (Duragesic) 1 patch TD Q72H [facility] Last Admin: 04/03/18 12:16 Dose: 1 patch Ferrous Sulfate (Feosol) 325 mg PO DAILY [facility] Last Admin: 04/03/18 11:01 Dose: 325 mg Lactulose (Enulose) 20 gm PO HS [facility] Last Admin: 04/02/18 21:41 Dose: 20 gm Rosuvastatin Calcium (Crestor) 20 mg PO HS [facility] Last Admin: 04/02/18 21:41 Dose: 20 mg Sodium Chloride (Sodium Chloride Tab) 1 gm PO BID [facility] Last Admin: 04/03/18 17:22 Dose: 1 gm Tramadol HCl (Ultram) 50 mg PO Q6H PRN PRN Reason: Pain, severe (8-10) Last Admin: 03/31/18 22:31 Dose: 50 mg - Labs Labs: 04/03/18 07:12 04/03/18 07:12 - Head Exam Head Exam: ATRAUMATIC - Eye Exam Eye Exam: Normal appearance - ENT Exam ENT Exam: Mucous Membranes Dry - Respiratory Exam Respiratory Exam: NORMAL BREATHING PATTERN - Cardiovascular Exam Cardiovascular Exam: +S1, +S2 - GI/Abdominal Exam GI & Abdominal Exam: Normal Bowel Sounds Assessment and Plan (1) Pancytopenia Assessment & Plan: mproved s/p growth factor and transfusion support Status: Acute (2) Diplopia Assessment & Plan: Secondary to brain metastasis radiotherapy evaluation and treatment Status: Acute (3) 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
--- NOTE | 2018-04-03 17:38 | CP.PCM.PN ---
Subjective - Date & Time of Evaluation Date of Evaluation: 03/31/18 Time of Evaluation: 13:00 - Subjective Subjective: Feeling better Objective - Vital Signs/Intake and Output Vital Signs (last 24 hours): Temp Pulse Resp BP Pulse Ox 98.1 F 68 20 128/71 97 04/03/18 15:00 04/03/18 15:00 04/03/18 15:00 04/03/18 15:00 04/03/18 15:00 Intake and Output: 04/03/18 04/03/18 06:59 18:59 Intake Total 1075 720 Balance 1075 720 - Medications Medications: Current Medications Acetaminophen (Tylenol 325mg Tab) 650 mg PO Q6 PRN PRN Reason: Pain, moderate (4-7) Last Admin: 03/31/18 17:46 Dose: 650 mg Aspirin (Ecotrin) 81 mg PO DAILY [facility] Last Admin: 04/03/18 11:00 Dose: 81 mg Chlorpromazine (Thorazine) 25 mg PO Q6H PRN PRN Reason: Hiccups Last Admin: 03/29/18 18:54 Dose: 25 mg Clopidogrel Bisulfate (Plavix) 75 mg PO DAILY [facility] Last Admin: 04/03/18 11:00 Dose: 75 mg Dexamethasone (Decadron) 2 mg PO BID [facility] Last Admin: 04/03/18 17:23 Dose: 2 mg Diclofenac Sodium (Voltaren) 75 mg PO BID [facility] Last Admin: 04/03/18 17:23 Dose: 75 mg Famotidine (Pepcid) 20 mg PO DAILY [facility] Last Admin: 04/03/18 11:00 Dose: 20 mg Fentanyl (Duragesic) 1 patch TD Q72H [facility] Last Admin: 04/03/18 12:16 Dose: 1 patch Ferrous Sulfate (Feosol) 325 mg PO DAILY [facility] Last Admin: 04/03/18 11:01 Dose: 325 mg Lactulose (Enulose) 20 gm PO HS [facility] Last Admin: 04/02/18 21:41 Dose: 20 gm Rosuvastatin Calcium (Crestor) 20 mg PO HS [facility] Last Admin: 04/02/18 21:41 Dose: 20 mg Sodium Chloride (Sodium Chloride Tab) 1 gm PO BID [facility] Last Admin: 04/03/18 17:22 Dose: 1 gm Tramadol HCl (Ultram) 50 mg PO Q6H PRN PRN Reason: Pain, severe (8-10) Last Admin: 03/31/18 22:31 Dose: 50 mg - Labs Labs: 04/03/18 07:12 04/03/18 07:12 - Head Exam Head Exam: ATRAUMATIC - Eye Exam Eye Exam: Normal appearance - ENT Exam ENT Exam: Mucous Membranes Dry - Respiratory Exam Respiratory Exam: NORMAL BREATHING PATTERN - Cardiovascular Exam Cardiovascular Exam: +S1, +S2 - GI/Abdominal Exam GI & Abdominal Exam: Normal Bowel Sounds Assessment and Plan (1) Pancytopenia Assessment & Plan: improved s/p growth factor and transfusion support Status: Acute (2) Diplopia Assessment & Plan: secondary to brain metastasis on whole brain radiotherapy Status: Acute (3) Small cell lung cancer Assessment & Plan: stage IV liver and brain metastasis on whole brain radiotherapy outpatient treatment Status: Acute
--- NOTE | 2018-04-03 17:40 | CP.PCM.PN ---
Subjective - Date & Time of Evaluation Date of Evaluation: 04/01/18 Time of Evaluation: 12:00 - Subjective Subjective: Feeling better with radiotherapy Objective - Vital Signs/Intake and Output Vital Signs (last 24 hours): Temp Pulse Resp BP Pulse Ox 98.1 F 68 20 128/71 97 04/03/18 15:00 04/03/18 15:00 04/03/18 15:00 04/03/18 15:00 04/03/18 15:00 Intake and Output: 04/03/18 04/03/18 06:59 18:59 Intake Total 1075 720 Balance 1075 720 - Medications Medications: Current Medications Acetaminophen (Tylenol 325mg Tab) 650 mg PO Q6 PRN PRN Reason: Pain, moderate (4-7) Last Admin: 03/31/18 17:46 Dose: 650 mg Aspirin (Ecotrin) 81 mg PO DAILY [facility] Last Admin: 04/03/18 11:00 Dose: 81 mg Chlorpromazine (Thorazine) 25 mg PO Q6H PRN PRN Reason: Hiccups Last Admin: 03/29/18 18:54 Dose: 25 mg Clopidogrel Bisulfate (Plavix) 75 mg PO DAILY [facility] Last Admin: 04/03/18 11:00 Dose: 75 mg Dexamethasone (Decadron) 2 mg PO BID [facility] Last Admin: 04/03/18 17:23 Dose: 2 mg Diclofenac Sodium (Voltaren) 75 mg PO BID [facility] Last Admin: 04/03/18 17:23 Dose: 75 mg Famotidine (Pepcid) 20 mg PO DAILY [facility] Last Admin: 04/03/18 11:00 Dose: 20 mg Fentanyl (Duragesic) 1 patch TD Q72H [facility] Last Admin: 04/03/18 12:16 Dose: 1 patch Ferrous Sulfate (Feosol) 325 mg PO DAILY [facility] Last Admin: 04/03/18 11:01 Dose: 325 mg Lactulose (Enulose) 20 gm PO HS [facility] Last Admin: 04/02/18 21:41 Dose: 20 gm Rosuvastatin Calcium (Crestor) 20 mg PO HS [facility] Last Admin: 04/02/18 21:41 Dose: 20 mg Sodium Chloride (Sodium Chloride Tab) 1 gm PO BID [facility] Last Admin: 04/03/18 17:22 Dose: 1 gm Tramadol HCl (Ultram) 50 mg PO Q6H PRN PRN Reason: Pain, severe (8-10) Last Admin: 03/31/18 22:31 Dose: 50 mg - Labs Labs: 04/03/18 07:12 04/03/18 07:12 - Head Exam Head Exam: ATRAUMATIC - Eye Exam Eye Exam: Normal appearance - ENT Exam ENT Exam: Mucous Membranes Dry - Respiratory Exam Respiratory Exam: NORMAL BREATHING PATTERN - Cardiovascular Exam Cardiovascular Exam: +S1, +S2 - GI/Abdominal Exam GI & Abdominal Exam: Normal Bowel Sounds Assessment and Plan (1) Pancytopenia Assessment & Plan: improved s/p growth factor and transfusion support Status: Acute (2) Diplopia Assessment & Plan: secondary to brain metastasis on whole brain radiotherapy Status: Acute (3) Small cell lung cancer Assessment & Plan: stage IV liver and brain metastasis on whole brain radiotherapy outpatient treatment Status: Acute
== END 2018-04-03 19:16 | disposition home or self-care (01) | DRG 689 ==
LOC: C.ER 15:47 → C.9E 18:05 → C.5S 22:09
PROVIDERS: ADMIT Internal Medicine Nephrology; ATTEND Internal Medicine Nephrology
PROC: 30233N1 Transfusion of Nonautologous Red Blood Cells into Peripheral Vein, Percutaneous Approach (ICD-10-PCS; principal; 2018-04-02)
DX: N39.0 Urinary tract infection, site not specified (principal); D61.810 Antineoplastic chemotherapy induced pancytopenia; C79.31 Secondary malignant neoplasm of brain; C34.90 Malignant neoplasm of unspecified part of unspecified bronchus or lung; C78.7 Secondary malignant neoplasm of liver and intrahepatic bile duct; C79.51 Secondary malignant neoplasm of bone; H53.2 Diplopia; E78.00 Pure hypercholesterolemia, unspecified; F41.9 Anxiety disorder, unspecified; H50.9 Unspecified strabismus; I10 Essential (primary) hypertension; I25.10 Atherosclerotic heart disease of native coronary artery without angina pectoris; K21.9 Gastro-esophageal reflux disease without esophagitis; T45.1X5A Adverse effect of antineoplastic and immunosuppressive drugs, initial encounter; Z95.1 Presence of aortocoronary bypass graft; Z87.891 Personal history of nicotine dependence

== ENCOUNTER 2018-05-08 17:49 | Inpatient (IN) | payer MEDICARE, OTHER ==
[2018-05-08 17:49] VITALS: BMI 22.3
[2018-05-08 18:23] LABS: HEMOGLOBIN 8.3 g/dL (12.0-18.0); LYMPH # 0.3 K/uL (1.0-4.3); RED CELL DISTRIBUTION WIDTH 19.2 % (11.5-14.5)
[2018-05-08 18:32] LABS: EOS % 0.2 % (0.0-4.0); LYMPH % 95.4 % (20.0-40.0); MEAN CELL VOLUME 94.9 fL (80.0-94.0); MEAN CORPUSCULAR HEMOGLOBIN 32.5 pg (27.0-31.0); MEAN CORPUSCULAR HGB CONC 34.2 g/dL (33.0-37.0); MEAN PLATELET VOLUME 7.9 fL (7.2-11.7); MONO % 2.2 % (0.0-10.0); NEUT % 2.2 % (50.0-75.0); NRBC % 1.5 % (0.0-2.0); RBC 2.55 Mil/uL (4.40-5.90)
[2018-05-08 18:35] LABS: INR 1.6; PROTHROMBIN TIME 17.3 SECONDS (9.7-12.2)
[2018-05-08 18:38] LABS: WHITE BLOOD COUNT 0.3 K/uL (4.8-10.8)
[2018-05-08 18:40] LABS: ALB/GLOB RATIO 1.3 (1.0-2.1); ALT/SGPT 37 U/L (21-72); AST/SGOT 82 U/L (17-59); BLOOD UREA NITROGEN 19 mg/dL (9-20); CALCIUM 9.3 mg/dl (8.6-10.4); GFR NON-AFRICAN AMERICAN > 60
[2018-05-08] MEDS ORDERED: Vancomycin 1 gm/NS 200 ml 1 GM/200 ML BAG IVPB STA (19:09)
[2018-05-08] MEDS ORDERED: Cefepime IV 1 gm in Dextrose 1 GM/50 ML BAG IVPB STA (19:09)
[2018-05-08] MEDS ORDERED: Sodium Chloride 0.9% 1,000 ML IV STA (19:09)
--- NOTE | 2018-05-08 19:18 | C.PDOC ---
History Of Present Illness 62 y/o male with PMHx of cancer (pancreas, bone, brain, lung, and liver, s/p radiation therapy, last received 4 days ago), presents to the ED with complaints of chills and generalized weakness. Temperature at home was 102. He denies any associated SOB, vomiting, diarrhea, abdominal pain, motor weakness, rash, or numbness. Time Seen by Provider: 05/08/18 18:11 Chief Complaint (Nursing): GI Problem History Per: Patient History/Exam Limitations: no limitations Onset/Duration Of Symptoms: Days Current Symptoms Are (Timing): Still Present Associated Symptoms: Chills Past Medical History Reviewed: Historical Data, Nursing Documentation, Vital Signs Vital Signs: Last Vital Signs Temp 100.2 F H 05/08/18 22:12 Pulse 113 H 05/08/18 23:00 Resp 17 05/08/18 23:00 BP 90/46 L 05/08/18 23:00 Pulse Ox 84 L 05/09/18 00:27 - Medical History PMH: Anemia, Anxiety, Arthritis (HX OF B/L HIP PAIN L>R), Gastritis, HTN, Hypercholesterolemia, Hyperlipidemia, Malignancy (metastatic lung CA, s/p radiation) Denies: Chronic Kidney Disease Surgical History: CABG Denies: Pacemaker - [facility] Procedures EXCISION OF LIVER, PERCUTANEOUS APPROACH, DIAGNOSTIC (07/01/17) INTRODUCTION OF SERUM/TOX/VACCINE INTO MUSCLE, PERC APPROACH (08/25/17) TRANSFUSE NONAUT RED BLOOD CELLS IN PERIPH VEIN, PERC (03/26/18) Family History: States: Unknown Family Hx - Social History Hx Alcohol Use: Yes Hx Substance Use: No - Immunization History Hx Tetanus Toxoid Vaccination: No Hx Influenza Vaccination: No Hx Pneumococcal Vaccination: No Review Of Systems Except As Marked, All Systems Reviewed And Found Negative. Constitutional: Positive for: Fever, Chills, Weakness Respiratory: Negative for: Shortness of Breath Gastrointestinal: Negative for: Nausea, Vomiting, Abdominal Pain, Diarrhea Skin: Negative for: Rash Neurological: Negative for: Weakness (motor), Numbness Physical Exam - Physical Exam Additional Physical Exam Comments: Constitutional: Appears generally weak. Head: Normocephalic. Atraumatic. Eyes: PERRL. ENT: Moist mucous membranes. Non-active dried epistaxis. Neck: Supple. Cardiovascular: Tachycardic. Radial pulse 2+ bilaterally. Chest: No tenderness. Respiratory: Clear to auscultation bilaterally. GI: Soft. Distended abdomen. Fentanyl patch on abdominal skin. Back: No CVA tenderness. Musculoskeletal: No tenderness or swelling of extremities. Skin: No rash. Neurologic: Alert, no focal deficit. ED Course And Treatment - Laboratory Results Result Diagrams: 05/08/18 18:29 05/08/18 18:31 O2 Sat by Pulse Oximetry: 84 (RA) Pulse Ox Interpretation: Abnormal Central Line Placement - Central Line Placement Central Line Placement: Right: Femoral The Area Was Thoroughly Prepared With: Chlorhexidine, Draped Using Sterile Technique Area Was Locally Anesthetized With: Lidocaine 1% Procedure: Triple Lumen, Placed Using Standard Seldinger Technique, Catheter Was Sewn Into Place, Sterile Dressing Placed Over Line, Procedure Tolerated Well Critical Care Time - Critical Care Note Total Time (in mins): 60 Comments: Required multiple reassessments, my immediate attention upon arrival and complex decision making for this patient with life threatening disease. Documented critical care: time excludes all time spent performing seperately billable procedures. Medical Decision Making Medical Decision Making: Plan: Blood work UA Urine and blood cultures EKG Chest X-Ray VBG IV fluids Cefepime IV 1gm in Dextrose Vancomycin IV 1gm in NS Reverse isoloation 8:34 pm: Dr. Chandra was paged. Accepts to ICU. Dr. Mccartney accepts to his service. 0024 Platelets administered prior to Right femoral central line placed, see procedure note. Disposition - Disposition Disposition: HOSPITALIZED Disposition Time: 22:00 Condition: CRITICAL - POA Core Measure Indicators: Code Sepsis - Clinical Impression Clinical Impression: Septic shock, Neutropenic fever - Scribe Statement The provider has reviewed the documentation as recorded by the Anais Otero Provider Attestation: All medical record entries made by the Anais were at my direction and personally dictated by me. I have reviewed the chart and agree that the record accurately reflects my personal performance of the history, physical exam, medical decision making, and the department course for this patient. I have also personally directed, reviewed, and agree with the discharge instructions and disposition.
[2018-05-08 19:33] LABS: VENOUS BLOOD GAS BASE EXCESS -6.3 mmol/L (0.0-2.0); VENOUS BLOOD GAS PCO2 20 mmHg (40-60); VENOUS BLOOD GAS PO2 41 mm/Hg (30-55); VENOUS BLOOD PH 7.48 (7.32-7.43)
[2018-05-08 20:24] LABS: SQUAMOUS EPITHIAL < 1 /hpf (0-5); URINE BILIRUBIN NEGATIVE (NEGATIVE); URINE BLOOD 2+ (NEGATIVE); URINE CLARITY Clear (Clear); URINE GLUCOSE (UA) NORMAL (Normal); URINE LEUKOCYTE ESTERASE NEG Leu/uL (Negative); URINE PROTEIN 1+ mg/dL (NEGATIVE)
[2018-05-08 20:35] LABS: URINE COLOR YELLOW (YELLOW)
--- NOTE | 2018-05-08 21:05 | RAD ---
HISTORY: Sepsis Patient COMPARISON: Chest x-ray performed 08/25/17 TECHNIQUE: Chest, one view. FINDINGS: LUNGS: No focal consolidation. Please note that chest x-ray has limited sensitivity for the detection of pulmonary masses. PLEURA: No significant pleural effusion identified. No definite pneumothorax . CARDIOVASCULAR: Median sternotomy wires. Heart size appears within normal limits. Ectatic aorta. OSSEOUS STRUCTURES: Degenerative changes. VISUALIZED UPPER ABDOMEN: Unremarkable. OTHER FINDINGS: None. IMPRESSION: No focal consolidation.
[2018-05-08 22:03] LABS: VENOUS BLOOD GAS BASE EXCESS -0.8 mmol/L (0.0-2.0); VENOUS BLOOD GAS PCO2 27 mmHg (40-60); VENOUS BLOOD GAS PO2 90 mm/Hg (30-55)
--- NOTE | 2018-05-08 23:26 | CP.CCUPN ---
CCU Subjective - Physician Review Events Since Last Encounter (Free Text): 05/08/18 The Patient was seen and examined at the bedside, Medical records reviewed, and management issues were discussed and formulated with the house staff. I have reviewed all the relevant clinical, laboratory, hemodynamic, radiographic data and medications Events reviewed Mr Patel is a 62 Years old Male with PMHx of HTN, Hypercholesterolemia, Hyperlipidemia, Anemia, Anxiety, Arthritis (HX OF B/L HIP PAIN L>R), Gastritis, and metastatic small cell lung CA (mets to pancreas, bone, brain, lung, and liver) s/p Cemo and radiation (last received 4 days ago) Who presents to the ED with complaints of chills, generalized weakness and fever at home was 102. He denies any associated SOB, vomiting, diarrhea, abdominal pain, motor weakness , rash, or numbness. In The ER he was hypotensive, central line placed and was started on vasopressors with Levophed Labs significant for pancytopenia, patient is receiving iU packed RBC and will get one U of Platelts as well Pt placed on neutropenic precaution and getting admitted to the ICU for septic shock Perrin cultures sent and received IV Vanco, Zosyn and Gentmycin CCU Objective - Vital Signs / Intake & Output Vital Signs (Last 4 hours): Vital Signs Temp Pulse Resp BP Pulse Ox 05/08/18 23:00 113 H 17 90/46 L 98 05/08/18 22:45 119 H 18 98 05/08/18 22:30 117 H 19 80/41 L 98 05/08/18 22:15 118 H 21 84/46 L 99 05/08/18 22:12 100.2 F H 122 H 24 84/46 L 99 05/08/18 21:20 101.8 F H 132 H 28 H 78/48 L 98 05/08/18 21:05 101.6 F H 134 H 28 H 88/50 L 98 05/08/18 20:34 84 L 05/08/18 20:28 101.6 F H 137 H 28 H 86/50 L 94 L 05/08/18 19:41 141 H 28 H 87/49 L 94 L Intake and Output (Last 8hrs): Intake & Output 05/08/18 05/08/18 05/09/18 14:59 22:59 06:59 Weight 122 lb - Physical Exam Physical Exam Limitations: Positive for: Clinical Condition, Uncooperative Head: Positive for: Atraumatic, Normocephalic. Negative for: Tenderness, Contusion Pupils: Positive for: PERRL. Negative for: Sluggish, Non-Reactive Extroacular Muscles: Positive for: EOMI. Negative for: Gaze Palsy, Entrapment Conjunctiva: Positive for: Normal. Negative for: Injected, Icteric Ears: Positive for: Normal, NORMAL TM, Normal Canal, Other (lot of Wax). Negative for: Erythema, TM Bulging, Fluid, TM Perf Mouth: Positive for: Dry Nose (Internal): Positive for: Normal Inspection Neck: Positive for: Normal Range of Motion, Trachea Midline. Negative for: Meningeal Signs, MIDLINE TENDERNESS, Paraspinal Tenderness, JVD, Lymphadenopathy , Bruit, Other Respiratory/Chest: Positive for: Decreased Breath Sounds, Rhonchi. Negative for : Clear to Auscultation, Respiratory Distress, Accessory Muscle Use, Wheezes, Rales Cardiovascular: Positive for: Regular Rate and Rhythm, Normal S1, S2, Peripheal Pulses Present. Negative for: Irregular Rhythm Abdomen: Positive for: Normal Bowel Sounds. Negative for: Tenderness, Distention, Peritoneal Signs, Rebound, Guarding Upper Extremity: Positive for: Normal Inspection, Capillary Refill < 2s. Negative for: Cyanosis, Edema, Normal ROM Lower Extremity: Positive for: Normal Inspection, NORMAL PULSES. Negative for: Edema, CALF TENDERNESS Neurological: Positive for: GCS=15, CN II-XII Intact, Speech Normal, Motor Func Grossly Intact, Normal Sensory Function Skin: Positive for: Warm, Dry, Normal Color. Negative for: Rashes, Diaphoretic , Erythematous, Laceration Psychiatric: Positive for: Alert, Oriented x 3 - Patient Studies Lab Studies: Lab Studies 05/08/18 05/08/18 05/08/18 Range/Units 21:57 19:48 19:25 WBC (4.8-10.8) K/uL RBC (4.40-5.90) Mil/uL Hgb (12.0-18.0) g/dL Hct (35.0-51.0) % MCV (80.0-94.0) fL MCH (27.0-31.0) pg MCHC (33.0-37.0) g/dL RDW (11.5-14.5) % Plt Count (130-400) K/uL MPV (7.2-11.7) fL Neut % (Auto) (50.0-75.0) % Lymph % (Auto) (20.0-40.0) % [place] % (Auto) (0.0-10.0) % Eos % (Auto) (0.0-4.0) % Baso % (Auto) (0.0-2.0) % Neut # (Auto) (1.8-7.0) K/uL Lymph # (Auto) (1.0-4.3) K/uL [place] # (Auto) (0.0-0.8) K/uL Eos # (Auto) (0.0-0.7) K/uL Baso # (Auto) (0.0-0.2) K/uL Total Counted Neutrophils % (Manual) Band Neutrophils % Lymphocytes % (Manual) Reactive Lymphs % Monocytes % (Manual) Eosinophils % (Manual) Basophils % (Manual) Metamyelocytes % Myelocytes % Promyelocytes % Blast Cells % Plasma Cell % (Manual) Nucleated RBC % Differential Comment Hypersegmented Polys Smudge Cells Toxic Granulation Dohle Bodies Kavita Rods Platelet Estimate Plt Clumps, EDTA Large Platelets Giant Platelets RBC Morphology Polychromasia Hypochromasia (manual) Poikilocytosis (manual Basophilic Stippling Anisocytosis (manual) Microcytosis (manual) Macrocytosis (manual) Spherocytes Sickle Cells Target Cells Tear Drop Cells Ovalocytes Stomatocytes Helmet Cells Bernstein-[place] Bodies Saud Cells Acanthocytes (Spur) Rouleaux Schistocytes PT (9.7-12.2) SECONDS INR APTT (21-34) SECONDS pO2 90 H 41 (30-55) mm/Hg VBG pH 7.50 H 7.48 H (7.32-7.43) VBG pCO2 27 L 20 L (40-60) mmHg VBG HCO3 24.3 19.6 mmol/L VBG Total CO2 21.9 L 15.5 L (22-28) mmol/L VBG O2 Sat (Calc) 97.0 H 80.9 H (40-65) % VBG Base Excess -0.8 L -6.3 L (0.0-2.0) mmol/L VBG Potassium 2.8 L 2.2 L* (3.6-5.2) mmol/L Glucose 139 H 114 H (75-110) mg/dl Lactate 3.4 H 3.7 H (0.7-2.1) mmol/L Crit Value Called To deon Carpenter/rn Crit Value Called By Taylor moe rcp Crit Value Read Back Y Blood Gas Notified Time 1931 Sodium 136.0 139.0 (132-148) mmol/L Potassium (3.6-5.2) mmol/L Chloride 105.0 111.0 H (98-107) mmol/L Carbon Dioxide (22-30) mmol/L Anion Gap (10-20) BUN (9-20) mg/dL Creatinine (0.8-1.5) mg/dL Est GFR ( Amer) Est GFR (Non-Af Amer) Random Glucose (75-110) mg/dL Calcium (8.6-10.4) mg/dl Phosphorus (2.5-4.5) mg/dL Magnesium (1.6-2.3) mg/dL Total Bilirubin (0.2-1.3) mg/dL AST (17-59) U/L ALT (21-72) U/L Alkaline Phosphatase (38-126) U/L Troponin I (0.00-0.120) ng/mL Total Protein (6.3-8.3) g/dL Albumin (3.5-5.0) g/dL Globulin (2.2-3.9) gm/dL Albumin/Globulin Ratio (1.0-2.1) Venous Blood Potassium 2.8 L 2.2 L* (3.6-5.2) mmol/L Urine Color Yellow (YELLOW) Urine Clarity Clear (Clear) Urine pH 5.0 (5.0-8.0) Ur Specific Russell 1.012 (1.003-1.030) Urine Protein 1+ H (NEGATIVE) mg/dL Urine Glucose (UA) Normal (Normal) mg/dL Urine Ketones Negative (NEGATIVE) mg/dL Urine Blood 2+ H (NEGATIVE) Urine Nitrate Negative (NEGATIVE) Urine Bilirubin Negative (NEGATIVE) Urine Urobilinogen 4.0 (0.2-1.0) mg/dL Ur Leukocyte Esterase Neg (Negative) Maria Del Rosario/uL Urine WBC (Auto) 3 (0-5) /hpf Urine RBC (Auto) 18 H (0-3) /hpf Ur Squamous Epith Cells < 1 (0-5) /hpf Blood Type Antibody Screen 05/08/18 05/08/18 05/08/18 Range/Units 18:31 18:29 18:29 WBC (4.8-10.8) K/uL RBC (4.40-5.90) Mil/uL Hgb (12.0-18.0) g/dL Hct (35.0-51.0) % MCV (80.0-94.0) fL MCH (27.0-31.0) pg MCHC (33.0-37.0) g/dL RDW (11.5-14.5) % Plt Count (130-400) K/uL MPV (7.2-11.7) fL Neut % (Auto) (50.0-75.0) % Lymph % (Auto) (20.0-40.0) % [place] % (Auto) (0.0-10.0) % Eos % (Auto) (0.0-4.0) % Baso % (Auto) (0.0-2.0) % Neut # (Auto) (1.8-7.0) K/uL Lymph # (Auto) (1.0-4.3) K/uL [place] # (Auto) (0.0-0.8) K/uL Eos # (Auto) (0.0-0.7) K/uL Baso # (Auto) (0.0-0.2) K/uL Total Counted Neutrophils % (Manual) Band Neutrophils % Lymphocytes % (Manual) Reactive Lymphs % Monocytes % (Manual) Eosinophils % (Manual) Basophils % (Manual) Metamyelocytes % Myelocytes % Promyelocytes % Blast Cells % Plasma Cell % (Manual) Nucleated RBC % Differential Comment Hypersegmented Polys Smudge Cells Toxic Granulation Dohle Bodies Kavita Rods Platelet Estimate Plt Clumps, EDTA Large Platelets Giant Platelets RBC Morphology Polychromasia Hypochromasia (manual) Poikilocytosis (manual Basophilic Stippling Anisocytosis (manual) Microcytosis (manual) Macrocytosis (manual) Spherocytes Sickle Cells Target Cells Tear Drop Cells Ovalocytes Stomatocytes Helmet Cells Bernstein-[place] Bodies Metter Cells Acanthocytes (Spur) Rouleaux Schistocytes PT 17.3 H (9.7-12.2) SECONDS INR 1.6 APTT 24 (21-34) SECONDS pO2 (30-55) mm/Hg VBG pH (7.32-7.43) VBG pCO2 (40-60) mmHg VBG HCO3 mmol/L VBG Total CO2 (22-28) mmol/L VBG O2 Sat (Calc) (40-65) % VBG Base Excess (0.0-2.0) mmol/L VBG Potassium (3.6-5.2) mmol/L Glucose (75-110) mg/dl Lactate (0.7-2.1) mmol/L Crit Value Called To Crit Value Called By Crit Value Read Back Blood Gas Notified Time Sodium 135 (132-148) mmol/L Potassium 3.5 L (3.6-5.2) mmol/L Chloride 97 L (98-107) mmol/L Carbon Dioxide 13 L (22-30) mmol/L Anion Gap 28 H (10-20) BUN 19 (9-20) mg/dL Creatinine 1.0 (0.8-1.5) mg/dL Est GFR ( Amer) > 60 Est GFR (Non-Af Amer) > 60 Random Glucose 210 H (75-110) mg/dL Calcium 9.3 (8.6-10.4) mg/dl Phosphorus 1.8 L (2.5-4.5) mg/dL Magnesium 1.4 L (1.6-2.3) mg/dL Total Bilirubin 2.1 H (0.2-1.3) mg/dL AST 82 H D (17-59) U/L ALT 37 (21-72) U/L Alkaline Phosphatase 359 H (38-126) U/L Troponin I < 0.0120 (0.00-0.120) ng/mL Total Protein 7.0 (6.3-8.3) g/dL Albumin 4.0 (3.5-5.0) g/dL Globulin 3.0 (2.2-3.9) gm/dL Albumin/Globulin Ratio 1.3 (1.0-2.1) Venous Blood Potassium (3.6-5.2) mmol/L Urine Color (YELLOW) Urine Clarity (Clear) Urine pH (5.0-8.0) Ur Specific Russell (1.003-1.030) Urine Protein (NEGATIVE) mg/dL Urine Glucose (UA) (Normal) mg/dL Urine Ketones (NEGATIVE) mg/dL Urine Blood (NEGATIVE) Urine Nitrate (NEGATIVE) Urine Bilirubin (NEGATIVE) Urine Urobilinogen (0.2-1.0) mg/dL Ur Leukocyte Esterase (Negative) Maria Del Rosario/uL Urine WBC (Auto) (0-5) /hpf Urine RBC (Auto) (0-3) /hpf Ur Squamous Epith Cells (0-5) /hpf Blood Type A POSITIVE Antibody Screen Negative 05/08/18 Range/Units 18:29 WBC 0.3 L* D (4.8-10.8) K/uL RBC 2.55 L (4.40-5.90) Mil/uL Hgb 8.3 L D (12.0-18.0) g/dL Hct 24.2 L (35.0-51.0) % MCV 94.9 H (80.0-94.0) fL MCH 32.5 H (27.0-31.0) pg MCHC 34.2 (33.0-37.0) g/dL RDW 19.2 H (11.5-14.5) % Plt Count 9 L* D (130-400) K/uL MPV 7.9 (7.2-11.7) fL Neut % (Auto) 2.2 L (50.0-75.0) % Lymph % (Auto) 95.4 H (20.0-40.0) % [place] % (Auto) 2.2 (0.0-10.0) % Eos % (Auto) 0.2 (0.0-4.0) % Baso % (Auto) 0.0 (0.0-2.0) % Neut # (Auto) 0.0 L (1.8-7.0) K/uL Lymph # (Auto) 0.3 L (1.0-4.3) K/uL [place] # (Auto) 0.0 (0.0-0.8) K/uL Eos # (Auto) 0.0 (0.0-0.7) K/uL Baso # (Auto) 0.0 (0.0-0.2) K/uL Total Counted Cancelled Neutrophils % (Manual) Cancelled Band Neutrophils % Cancelled Lymphocytes % (Manual) Cancelled Reactive Lymphs % Cancelled Monocytes % (Manual) Cancelled Eosinophils % (Manual) Cancelled Basophils % (Manual) Cancelled Metamyelocytes % Cancelled Myelocytes % Cancelled Promyelocytes % Cancelled Blast Cells % Cancelled Plasma Cell % (Manual) Cancelled Nucleated RBC % Cancelled Differential Comment Hypersegmented Polys Cancelled Smudge Cells Cancelled Toxic Granulation Cancelled Dohle Bodies Cancelled Kavita Rods Cancelled Platelet Estimate Cancelled Plt Clumps, EDTA Cancelled Large Platelets Cancelled Giant Platelets Cancelled RBC Morphology Cancelled Polychromasia Cancelled Hypochromasia (manual) Cancelled Poikilocytosis (manual Cancelled Basophilic Stippling Cancelled Anisocytosis (manual) Cancelled Microcytosis (manual) Cancelled Macrocytosis (manual) Cancelled Spherocytes Cancelled Sickle Cells Cancelled Target Cells Cancelled Tear Drop Cells Cancelled Ovalocytes Cancelled Stomatocytes Cancelled Helmet Cells Cancelled Bernstein-[place] Bodies Cancelled Saud Cells Cancelled Acanthocytes (Spur) Cancelled Rouleaux Cancelled Schistocytes Cancelled PT (9.7-12.2) SECONDS INR APTT (21-34) SECONDS pO2 (30-55) mm/Hg VBG pH (7.32-7.43) VBG pCO2 (40-60) mmHg VBG HCO3 mmol/L VBG Total CO2 (22-28) mmol/L VBG O2 Sat (Calc) (40-65) % VBG Base Excess (0.0-2.0) mmol/L VBG Potassium (3.6-5.2) mmol/L Glucose (75-110) mg/dl Lactate (0.7-2.1) mmol/L Crit Value Called To Crit Value Called By Crit Value Read Back Blood Gas Notified Time Sodium (132-148) mmol/L Potassium (3.6-5.2) mmol/L Chloride (98-107) mmol/L Carbon Dioxide (22-30) mmol/L Anion Gap (10-20) BUN (9-20) mg/dL Creatinine (0.8-1.5) mg/dL Est GFR ( Amer) Est GFR (Non-Af Amer) Random Glucose (75-110) mg/dL Calcium (8.6-10.4) mg/dl Phosphorus (2.5-4.5) mg/dL Magnesium (1.6-2.3) mg/dL Total Bilirubin (0.2-1.3) mg/dL AST (17-59) U/L ALT (21-72) U/L Alkaline Phosphatase (38-126) U/L Troponin I (0.00-0.120) ng/mL Total Protein (6.3-8.3) g/dL Albumin (3.5-5.0) g/dL Globulin (2.2-3.9) gm/dL Albumin/Globulin Ratio (1.0-2.1) Venous Blood Potassium (3.6-5.2) mmol/L Urine Color (YELLOW) Urine Clarity (Clear) Urine pH (5.0-8.0) Ur Specific Russell (1.003-1.030) Urine Protein (NEGATIVE) mg/dL Urine Glucose (UA) (Normal) mg/dL Urine Ketones (NEGATIVE) mg/dL Urine Blood (NEGATIVE) Urine Nitrate (NEGATIVE) Urine Bilirubin (NEGATIVE) Urine Urobilinogen (0.2-1.0) mg/dL Ur Leukocyte Esterase (Negative) Maria Del Rosario/uL Urine WBC (Auto) (0-5) /hpf Urine RBC (Auto) (0-3) /hpf Ur Squamous Epith Cells (0-5) /hpf Blood Type Antibody Screen Laboratory Results - last 24 hr 05/08/18 05/08/18 05/08/18 18:29 18:29 18:29 WBC 0.3 L* D RBC 2.55 L Hgb 8.3 L D Hct 24.2 L MCV 94.9 H MCH 32.5 H MCHC 34.2 RDW 19.2 H Plt Count 9 L* D MPV 7.9 Neut % (Auto) 2.2 L Lymph % (Auto) 95.4 H [place] % (Auto) 2.2 Eos % (Auto) 0.2 Baso % (Auto) 0.0 Neut # (Auto) 0.0 L Lymph # (Auto) 0.3 L [place] # (Auto) 0.0 Eos # (Auto) 0.0 Baso # (Auto) 0.0 Total Counted Cancelled Neutrophils % (Manual) Cancelled Band Neutrophils % Cancelled Lymphocytes % (Manual) Cancelled Reactive Lymphs % Cancelled Monocytes % (Manual) Cancelled Eosinophils % (Manual) Cancelled Basophils % (Manual) Cancelled Metamyelocytes % Cancelled Myelocytes % Cancelled Promyelocytes % Cancelled Blast Cells % Cancelled Plasma Cell % (Manual) Cancelled Nucleated RBC % Cancelled Differential Comment Hypersegmented Polys Cancelled Smudge Cells Cancelled Toxic Granulation Cancelled Dohle Bodies Cancelled Kavita Rods Cancelled Platelet Estimate Cancelled Plt Clumps, EDTA Cancelled Large Platelets Cancelled Giant Platelets Cancelled RBC Morphology Cancelled Polychromasia Cancelled Hypochromasia (manual) Cancelled Poikilocytosis (manual Cancelled Basophilic Stippling Cancelled Anisocytosis (manual) Cancelled Microcytosis (manual) Cancelled Macrocytosis (manual) Cancelled Spherocytes Cancelled Sickle Cells Cancelled Target Cells Cancelled Tear Drop Cells Cancelled Ovalocytes Cancelled Stomatocytes Cancelled Helmet Cells Cancelled Bernstein-[place] Bodies Cancelled Metter Cells Cancelled Acanthocytes (Spur) Cancelled Rouleaux Cancelled Schistocytes Cancelled PT 17.3 H INR 1.6 APTT 24 pO2 VBG pH VBG pCO2 VBG HCO3 VBG Total CO2 VBG O2 Sat (Calc) VBG Base Excess VBG Potassium Glucose Lactate Crit Value Called To Crit Value Called By Crit Value Read Back Blood Gas Notified Time Sodium Potassium Chloride Carbon Dioxide Anion Gap BUN Creatinine Est GFR ( Amer) Est GFR (Non-Af Amer) Random Glucose Calcium Phosphorus Magnesium Total Bilirubin AST ALT Alkaline Phosphatase Troponin I Total Protein Albumin Globulin Albumin/Globulin Ratio Venous Blood Potassium Urine Color Urine Clarity Urine pH Ur Specific Russell Urine Protein Urine Glucose (UA) Urine Ketones Urine Blood Urine Nitrate Urine Bilirubin Urine Urobilinogen Ur Leukocyte Esterase Urine WBC (Auto) Urine RBC (Auto) Ur Squamous Epith Cells Blood Type A POSITIVE Antibody Screen Negative 05/08/18 05/08/18 05/08/18 18:31 19:25 19:48 WBC RBC Hgb Hct MCV MCH MCHC RDW Plt Count MPV Neut % (Auto) Lymph % (Auto) [place] % (Auto) Eos % (Auto) Baso % (Auto) Neut # (Auto) Lymph # (Auto) [place] # (Auto) Eos # (Auto) Baso # (Auto) Total Counted Neutrophils % (Manual) Band Neutrophils % Lymphocytes % (Manual) Reactive Lymphs % Monocytes % (Manual) Eosinophils % (Manual) Basophils % (Manual) Metamyelocytes % Myelocytes % Promyelocytes % Blast Cells % Plasma Cell % (Manual) Nucleated RBC % Differential Comment Hypersegmented Polys Smudge Cells Toxic Granulation Dohle Bodies Kavita Rods Platelet Estimate Plt Clumps, EDTA Large Platelets Giant Platelets RBC Morphology Polychromasia Hypochromasia (manual) Poikilocytosis (manual Basophilic Stippling Anisocytosis (manual) Microcytosis (manual) Macrocytosis (manual) Spherocytes Sickle Cells Target Cells Tear Drop Cells Ovalocytes Stomatocytes Helmet Cells Bernstein[place] Bodies Saud Cells Acanthocytes (Spur) Rouleaux Schistocytes PT INR APTT pO2 41 VBG pH 7.48 H VBG pCO2 20 L VBG HCO3 19.6 VBG Total CO2 15.5 L VBG O2 Sat (Calc) 80.9 H VBG Base Excess -6.3 L VBG Potassium 2.2 L* Glucose 114 H Lactate 3.7 H Crit Value Called To deon Carpenter/rn Crit Value Called By Taylor moe rcp Crit Value Read Back Y Blood Gas Notified Time 1931 Sodium 135 139.0 Potassium 3.5 L Chloride 97 L 111.0 H Carbon Dioxide 13 L Anion Gap 28 H BUN 19 Creatinine 1.0 Est GFR ( Amer) > 60 Est GFR (Non-Af Amer) > 60 Random Glucose 210 H Calcium 9.3 Phosphorus 1.8 L Magnesium 1.4 L Total Bilirubin 2.1 H AST 82 H D ALT 37 Alkaline Phosphatase 359 H Troponin I < 0.0120 Total Protein 7.0 Albumin 4.0 Globulin 3.0 Albumin/Globulin Ratio 1.3 Venous Blood Potassium 2.2 L* Urine Color Yellow Urine Clarity Clear Urine pH 5.0 Ur Specific Russell 1.012 Urine Protein 1+ H Urine Glucose (UA) Normal Urine Ketones Negative Urine Blood 2+ H Urine Nitrate Negative Urine Bilirubin Negative Urine Urobilinogen 4.0 Ur Leukocyte Esterase Neg Urine WBC (Auto) 3 Urine RBC (Auto) 18 H Ur Squamous Epith Cells < 1 Blood Type Antibody Screen 05/08/18 21:57 WBC RBC Hgb Hct MCV MCH MCHC RDW Plt Count MPV Neut % (Auto) Lymph % (Auto) [place] % (Auto) Eos % (Auto) Baso % (Auto) Neut # (Auto) Lymph # (Auto) [place] # (Auto) Eos # (Auto) Baso # (Auto) Total Counted Neutrophils % (Manual) Band Neutrophils % Lymphocytes % (Manual) Reactive Lymphs % Monocytes % (Manual) Eosinophils % (Manual) Basophils % (Manual) Metamyelocytes % Myelocytes % Promyelocytes % Blast Cells % Plasma Cell % (Manual) Nucleated RBC % Differential Comment Hypersegmented Polys Smudge Cells Toxic Granulation Dohle Bodies Kavita Rods Platelet Estimate Plt Clumps, EDTA Large Platelets Giant Platelets RBC Morphology Polychromasia Hypochromasia (manual) Poikilocytosis (manual Basophilic Stippling Anisocytosis (manual) Microcytosis (manual) Macrocytosis (manual) Spherocytes Sickle Cells Target Cells Tear Drop Cells Ovalocytes Stomatocytes Helmet Cells Bernstein-[place] Bodies Saud Cells Acanthocytes (Spur) Rouleaux Schistocytes PT INR APTT pO2 90 H VBG pH 7.50 H VBG pCO2 27 L VBG HCO3 24.3 VBG Total CO2 21.9 L VBG O2 Sat (Calc) 97.0 H VBG Base Excess -0.8 L VBG Potassium 2.8 L Glucose 139 H Lactate 3.4 H Crit Value Called To Crit Value Called By Crit Value Read Back Blood Gas Notified Time Sodium 136.0 Potassium Chloride 105.0 Carbon Dioxide Anion Gap BUN Creatinine Est GFR ( Amer) Est GFR (Non-Af Amer) Random Glucose Calcium Phosphorus Magnesium Total Bilirubin AST ALT Alkaline Phosphatase Troponin I Total Protein Albumin Globulin Albumin/Globulin Ratio Venous Blood Potassium 2.8 L Urine Color Urine Clarity Urine pH Ur Specific Russell Urine Protein Urine Glucose (UA) Urine Ketones Urine Blood Urine Nitrate Urine Bilirubin Urine Urobilinogen Ur Leukocyte Esterase Urine WBC (Auto) Urine RBC (Auto) Ur Squamous Epith Cells Blood Type Antibody Screen EKG/Cardiology Studies: Cardiology / EKG Studies 05/08/18 18:09 ELECTROCARDIOGRAM Stat Comment: Mode Of Transportation: Reason For Exam: BASELINE Review of Systems - Constitutional Constitutional: Fever, Chills, Sweats, Weakness, Malaise - EENT Nose/Mouth/Throat: Epistaxis - Cardiovascular Cardiovascular: absent: Chest Pain, Chest Pain at Rest, Chest Pain with Activity , Claudication, Edema, Irregular Heart Rhythm - Respiratory Respiratory: Cough, Dyspnea, Dyspnea on Exertion. absent: Hemoptysis, Wheezing , Snoring Critical Care Progress Note - Extremities/Vascular Does the Patient have a Central Venous Catheter?: Yes Does the Patient need a Central Venous Catheter?: Yes Does the Patient have a Kaufman Catheter?: No Does the Patient need a Kaufman Catheter?: No Assessment/Plan (1) Septic shock Current Visit: Yes Status: Acute Priority: High Comment: - Continue levophed for BP support, wean as tolerated - IV Hydrations - Blood cultures, urine cultures, MRSA screen sent. - IV Cefepime 2gm IV q8h - IV Gentamycin - IV Vancomycin 1gm q12h - ID Consult to Dr. Rasmussen. (2) Pancytopenia Current Visit: Yes Status: Acute Priority: High Comment: - Transfuse 2 units PRBC. - Transfuse 1 unit Platelet - 480 mg SQ Granix - Consult to Dr. Bae. (3) Neutropenic fever Current Visit: Yes Status: Acute Priority: High Comment: As per Septic shock (4) Small cell lung cancer Current Visit: Yes Status: Acute Priority: High (5) Electrolyte imbalance Current Visit: Yes Status: Acute Priority: High (6) Metastatic cancer to liver Current Visit: Yes Status: Acute Priority: Medium (7) S/P CABG (coronary artery bypass graft) Current Visit: No Status: Acute Priority: Medium
[2018-05-08] MEDS ORDERED: Sodium Chloride 0.9% 250 ML IV ONE ×2 (23:42→23:45)
[2018-05-09] MEDS: Sodium Chloride 0.9% 500 ML IV SCH ×2 (00:36→01:48)
[2018-05-09] MEDS: Vancomycin 1 gm/NS 200 ml 1 GM/200 ML BAG IVPB SCH ×2 (01:54→16:06)
[2018-05-09] MEDS: Cefepime IV 2 gm in Dextrose 2 GM/100 ML BAG IVPB SCH ×3 (02:22→17:30)
[2018-05-09] MEDS: Sodium Chloride 0.9% 1,000 ML IV SCH ×3 (02:30→22:43)
[2018-05-09 05:33] LABS: RBC 2.26 Mil/uL (4.40-5.90)
[2018-05-09 05:40] LABS: HEMOGLOBIN 7.2 g/dL (12.0-18.0); MEAN CELL VOLUME 88.4 fL (80.0-94.0); MEAN CORPUSCULAR HEMOGLOBIN 31.8 pg (27.0-31.0); MEAN CORPUSCULAR HGB CONC 35.9 g/dL (33.0-37.0); MEAN PLATELET VOLUME 7.2 fL (7.2-11.7); RED CELL DISTRIBUTION WIDTH 18.8 % (11.5-14.5)
[2018-05-09 05:43] LABS: WHITE BLOOD COUNT 0.1 K/uL (4.8-10.8)
[2018-05-09 05:52] LABS: ALB/GLOB RATIO 1.1 (1.0-2.1); ALBUMIN 2.9 g/dL (3.5-5.0); ALT/SGPT 39 U/L (21-72); AST/SGOT 57 U/L (17-59); BLOOD UREA NITROGEN 18 mg/dL (9-20); CALCIUM 8.1 mg/dl (8.6-10.4); GFR NON-AFRICAN AMERICAN > 60
[2018-05-09] MEDS ORDERED: Potassium Chloride 20 mEq ER Tab PO ONE (08:30)
[2018-05-09 08:38] LABS: EOS % 7.9 % (0.0-4.0); LYMPH # 0.1 K/uL (1.0-4.3); LYMPH % 74.3 % (20.0-40.0); MONO % 5.1 % (0.0-10.0); NEUT % 12.7 % (50.0-75.0)
[2018-05-09] MEDS: Magnesium Sulfate 1 gm in D5W 1 GM/100 ML BAG IVPB SCH ×2 (08:45→09:49)
--- NOTE | 2018-05-09 10:46 | CP.CCUPN ---
<Jossie Mosquera P - Last Filed: 05/09/18 16:29> CCU Subjective - Physician Review Subjective (Free Text): PGY-1 critical care progress note Patient seen and examined at bedside. Patient states he feels better. Denies cough, shortness of breath, chest pain, difficulty urinating, nausea and vomiting. CCU Objective - Vital Signs / Intake & Output Vital Signs (Last 4 hours): Vital Signs Temp Pulse Resp BP Pulse Ox 05/09/18 10:00 102 H 20 97 05/09/18 09:45 101 H 14 94/51 L 97 05/09/18 09:00 102 H 22 98 05/09/18 08:46 105 H 16 91/48 L 97 05/09/18 08:00 98.6 F 105 H 18 107/51 L 97 05/09/18 07:45 102 H 21 107/51 L 98 05/09/18 07:00 100 H 17 96 05/09/18 06:45 97 H 16 102/60 98 Intake and Output (Last 8hrs): Intake & Output 05/08/18 05/09/18 05/09/18 22:59 06:59 14:59 Intake Total 619.0 940 Output Total 1360 400 Balance -741.0 540 Weight 122 lb 121 lb Intake: IV 74 80 Intake, IV Amount 245.0 460 RIGHT FEMORAL MEDIAL PORT 45.0 60 right femoral proximal 200 400 port Oral 300 400 Output: Urine 1360 400 Urine, Voided 460 400 Stool 0 0 Other: Voiding Method Urinal - Physical Exam Head: Positive for: Atraumatic, Normocephalic Extroacular Muscles: Positive for: EOMI Nose (Internal): Positive for: Normal Inspection Respiratory/Chest: Positive for: Clear to Auscultation. Negative for: Respiratory Distress, Wheezes, Rales, Rhonchi Cardiovascular: Positive for: Normal S1, S2, Tachycardic Abdomen: Positive for: Normal Bowel Sounds. Negative for: Tenderness, Rebound, Guarding Lower Extremity: Positive for: Normal Inspection. Negative for: Edema, CALF TENDERNESS Neurological: Positive for: CN II-XII Intact (grossly), Speech Normal, Motor Func Grossly Intact Skin: Positive for: Warm, Dry, Normal Color Psychiatric: Positive for: Alert, Oriented x 3 - Medications Active Medications: Active Medications Generic Name Dose Route Start Last Admin Trade Name Freq PRN Reason Stop Dose Admin Norepinephrine Bitartrate 4 mg 254 mls @ 15.24 mls/hr 05/09/18 00:05 08:06 / Sodium Chloride IV 4 mcg/min .[id number] PRN 15.24 mls/hr TITRATE PER MD ORDER Titration Protocol 4 MCG/MIN Cefepime HCl 2 gm in 100 mls @ 200 mls/hr 05/09/18 01:30 05/09/18 09:49 Maxipime Iv 2 Gm Premix IVPB 05/14/18 01:31 200 mls/hr Q8H AWILDA Administration Protocol Vancomycin/Sodium Chloride 1 gm in 200 mls @ 166.6 mls/hr 05/09/18 02:00 01:54 Vancomycin 1 Gm/Ns 200 Ml IVPB 05/14/18 02:01 Not Given Q12H AWILDA Protocol Sodium Chloride 1,000 mls @ 100 mls/hr 05/09/18 02:30 05/09/18 02:30 Sodium Chloride 0.9% IV 100 mls/hr .Q10H AWILDA Administration Tobramycin Sulfate 250 mg/ 106.25 mls @ 100 mls/hr 05/09/18 11:00 Sodium Chloride IV Q24H AWILDA Protocol Micafungin Sodium 100 mg/ 100 mls @ 100 mls/hr 05/09/18 09:45 Sodium Chloride IV Q24H [facility] Protocol - Patient Studies Lab Studies: Lab Studies 05/09/18 05/09/18 05/09/18 Range/Units 07:51 05:29 05:29 WBC (4.8-10.8) K/uL RBC (4.40-5.90) Mil/uL Hgb (12.0-18.0) g/dL Hct (35.0-51.0) % MCV (80.0-94.0) fL MCH (27.0-31.0) pg MCHC (33.0-37.0) g/dL RDW (11.5-14.5) % Plt Count (130-400) K/uL MPV (7.2-11.7) fL Neut % (Auto) (50.0-75.0) % Lymph % (Auto) (20.0-40.0) % [place] % (Auto) (0.0-10.0) % Eos % (Auto) (0.0-4.0) % Baso % (Auto) (0.0-2.0) % Neut # (Auto) (1.8-7.0) K/uL Lymph # (Auto) (1.0-4.3) K/uL [place] # (Auto) (0.0-0.8) K/uL Eos # (Auto) (0.0-0.7) K/uL Baso # (Auto) (0.0-0.2) K/uL Total Counted Neutrophils % (Manual) Band Neutrophils % Lymphocytes % (Manual) Reactive Lymphs % Monocytes % (Manual) Eosinophils % (Manual) Basophils % (Manual) Metamyelocytes % Myelocytes % Promyelocytes % Blast Cells % Plasma Cell % (Manual) Nucleated RBC % Differential Comment Hypersegmented Polys Smudge Cells Toxic Granulation Dohle Bodies Kavita Rods Platelet Estimate Plt Clumps, EDTA Large Platelets Giant Platelets RBC Morphology Polychromasia Hypochromasia (manual) Poikilocytosis (manual Basophilic Stippling Anisocytosis (manual) Microcytosis (manual) Macrocytosis (manual) Spherocytes Sickle Cells Target Cells Tear Drop Cells Ovalocytes Stomatocytes Helmet Cells Bernstein-Wyboo Bodies Saud Cells Acanthocytes (Spur) Rouleaux Schistocytes PT (9.7-12.2) SECONDS INR APTT (21-34) SECONDS pO2 (30-55) mm/Hg VBG pH (7.32-7.43) VBG pCO2 (40-60) mmHg VBG HCO3 mmol/L VBG Total CO2 (22-28) mmol/L VBG O2 Sat (Calc) (40-65) % VBG Base Excess (0.0-2.0) mmol/L VBG Potassium (3.6-5.2) mmol/L Glucose (75-110) mg/dl Lactate (0.7-2.1) mmol/L Crit Value Called To Crit Value Called By Crit Value Read Back Blood Gas Notified Time Sodium 138 (132-148) mmol/L Potassium 3.4 L (3.6-5.2) mmol/L Chloride 105 (98-107) mmol/L Carbon Dioxide 21 L (22-30) mmol/L Anion Gap 15 (10-20) BUN 18 (9-20) mg/dL Creatinine 0.7 L (0.8-1.5) mg/dL Est GFR ( Amer) > 60 Est GFR (Non-Af Amer) > 60 POC Glucose (mg/dL) 109 (65-110) mg/dL Random Glucose 122 H (75-110) mg/dL Lactic Acid 2.6 H (0.7-2.1) mmol/L Calcium 8.1 L (8.6-10.4) mg/dl Phosphorus 3.1 (2.5-4.5) mg/dL Magnesium 1.2 L (1.6-2.3) mg/dL Total Bilirubin 1.7 H (0.2-1.3) mg/dL AST 57 (17-59) U/L ALT 39 (21-72) U/L Alkaline Phosphatase 223 H D (38-126) U/L Troponin I (0.00-0.120) ng/mL Total Protein 5.7 L (6.3-8.3) g/dL Albumin 2.9 L D (3.5-5.0) g/dL Globulin 2.8 (2.2-3.9) gm/dL Albumin/Globulin Ratio 1.1 (1.0-2.1) Venous Blood Potassium (3.6-5.2) mmol/L Urine Color (YELLOW) Urine Clarity (Clear) Urine pH (5.0-8.0) Ur Specific [place] (1.003-1.030) Urine Protein (NEGATIVE) mg/dL Urine Glucose (UA) (Normal) mg/dL Urine Ketones (NEGATIVE) mg/dL Urine Blood (NEGATIVE) Urine Nitrate (NEGATIVE) Urine Bilirubin (NEGATIVE) Urine Urobilinogen (0.2-1.0) mg/dL Ur Leukocyte Esterase (Negative) Maria Del Rosario/uL Urine WBC (Auto) (0-5) /hpf Urine RBC (Auto) (0-3) /hpf Ur Squamous Epith Cells (0-5) /hpf Blood Type Antibody Screen 05/09/18 05/08/18 05/08/18 Range/Units 05:29 21:57 19:48 WBC 0.1 L* D (4.8-10.8) K/uL RBC 2.26 L (4.40-5.90) Mil/uL Hgb 7.2 L (12.0-18.0) g/dL Hct 20.0 L (35.0-51.0) % MCV 88.4 D (80.0-94.0) fL MCH 31.8 H (27.0-31.0) pg MCHC 35.9 (33.0-37.0) g/dL RDW 18.8 H (11.5-14.5) % Plt Count 45 L D (130-400) K/uL MPV 7.2 (7.2-11.7) fL Neut % (Auto) 12.7 L (50.0-75.0) % Lymph % (Auto) 74.3 H (20.0-40.0) % [place] % (Auto) 5.1 (0.0-10.0) % Eos % (Auto) 7.9 H (0.0-4.0) % Baso % (Auto) 0.0 (0.0-2.0) % Neut # (Auto) 0.0 L (1.8-7.0) K/uL Lymph # (Auto) 0.1 L (1.0-4.3) K/uL [place] # (Auto) 0.0 (0.0-0.8) K/uL Eos # (Auto) 0.0 (0.0-0.7) K/uL Baso # (Auto) 0.0 (0.0-0.2) K/uL Total Counted Cancelled Neutrophils % (Manual) Cancelled Band Neutrophils % Cancelled Lymphocytes % (Manual) Cancelled Reactive Lymphs % Cancelled Monocytes % (Manual) Cancelled Eosinophils % (Manual) Cancelled Basophils % (Manual) Cancelled Metamyelocytes % Cancelled Myelocytes % Cancelled Promyelocytes % Cancelled Blast Cells % Cancelled Plasma Cell % (Manual) Cancelled Nucleated RBC % Cancelled Differential Comment Hypersegmented Polys Cancelled Smudge Cells Cancelled Toxic Granulation Cancelled Dohle Bodies Cancelled Kavita Rods Cancelled Platelet Estimate Cancelled Plt Clumps, EDTA Cancelled Large Platelets Cancelled Giant Platelets Cancelled RBC Morphology Cancelled Polychromasia Cancelled Hypochromasia (manual) Cancelled Poikilocytosis (manual Cancelled Basophilic Stippling Cancelled Anisocytosis (manual) Cancelled Microcytosis (manual) Cancelled Macrocytosis (manual) Cancelled Spherocytes Cancelled Sickle Cells Cancelled Target Cells Cancelled Tear Drop Cells Cancelled Ovalocytes Cancelled Stomatocytes Cancelled Helmet Cells Cancelled Bernstein-Wyboo Bodies Cancelled Saud Cells Cancelled Acanthocytes (Spur) Cancelled Rouleaux Cancelled Schistocytes Cancelled PT (9.7-12.2) SECONDS INR APTT (21-34) SECONDS pO2 90 H (30-55) mm/Hg VBG pH 7.50 H (7.32-7.43) VBG pCO2 27 L (40-60) mmHg VBG HCO3 24.3 mmol/L VBG Total CO2 21.9 L (22-28) mmol/L VBG O2 Sat (Calc) 97.0 H (40-65) % VBG Base Excess -0.8 L (0.0-2.0) mmol/L VBG Potassium 2.8 L (3.6-5.2) mmol/L Glucose 139 H (75-110) mg/dl Lactate 3.4 H (0.7-2.1) mmol/L Crit Value Called To Crit Value Called By Crit Value Read Back Blood Gas Notified Time Sodium 136.0 (132-148) mmol/L Potassium (3.6-5.2) mmol/L Chloride 105.0 (98-107) mmol/L Carbon Dioxide (22-30) mmol/L Anion Gap (10-20) BUN (9-20) mg/dL Creatinine (0.8-1.5) mg/dL Est GFR ( Amer) Est GFR (Non-Af Amer) POC Glucose (mg/dL) (65-110) mg/dL Random Glucose (75-110) mg/dL Lactic Acid (0.7-2.1) mmol/L Calcium (8.6-10.4) mg/dl Phosphorus (2.5-4.5) mg/dL Magnesium (1.6-2.3) mg/dL Total Bilirubin (0.2-1.3) mg/dL AST (17-59) U/L ALT (21-72) U/L Alkaline Phosphatase (38-126) U/L Troponin I (0.00-0.120) ng/mL Total Protein (6.3-8.3) g/dL Albumin (3.5-5.0) g/dL Globulin (2.2-3.9) gm/dL Albumin/Globulin Ratio (1.0-2.1) Venous Blood Potassium 2.8 L (3.6-5.2) mmol/L Urine Color Yellow (YELLOW) Urine Clarity Clear (Clear) Urine pH 5.0 (5.0-8.0) Ur Specific [place] 1.012 (1.003-1.030) Urine Protein 1+ H (NEGATIVE) mg/dL Urine Glucose (UA) Normal (Normal) mg/dL Urine Ketones Negative (NEGATIVE) mg/dL Urine Blood 2+ H (NEGATIVE) Urine Nitrate Negative (NEGATIVE) Urine Bilirubin Negative (NEGATIVE) Urine Urobilinogen 4.0 (0.2-1.0) mg/dL Ur Leukocyte Esterase Neg (Negative) Maria Del Rosario/uL Urine WBC (Auto) 3 (0-5) /hpf Urine RBC (Auto) 18 H (0-3) /hpf Ur Squamous Epith Cells < 1 (0-5) /hpf Blood Type Antibody Screen 05/08/18 05/08/18 05/08/18 Range/Units 19:25 18:31 18:29 WBC (4.8-10.8) K/uL RBC (4.40-5.90) Mil/uL Hgb (12.0-18.0) g/dL Hct (35.0-51.0) % MCV (80.0-94.0) fL MCH (27.0-31.0) pg MCHC (33.0-37.0) g/dL RDW (11.5-14.5) % Plt Count (130-400) K/uL MPV (7.2-11.7) fL Neut % (Auto) (50.0-75.0) % Lymph % (Auto) (20.0-40.0) % [place] % (Auto) (0.0-10.0) % Eos % (Auto) (0.0-4.0) % Baso % (Auto) (0.0-2.0) % Neut # (Auto) (1.8-7.0) K/uL Lymph # (Auto) (1.0-4.3) K/uL [place] # (Auto) (0.0-0.8) K/uL Eos # (Auto) (0.0-0.7) K/uL Baso # (Auto) (0.0-0.2) K/uL Total Counted Neutrophils % (Manual) Band Neutrophils % Lymphocytes % (Manual) Reactive Lymphs % Monocytes % (Manual) Eosinophils % (Manual) Basophils % (Manual) Metamyelocytes % Myelocytes % Promyelocytes % Blast Cells % Plasma Cell % (Manual) Nucleated RBC % Differential Comment Hypersegmented Polys Smudge Cells Toxic Granulation Dohle Bodies Kavita Rods Platelet Estimate Plt Clumps, EDTA Large Platelets Giant Platelets RBC Morphology Polychromasia Hypochromasia (manual) Poikilocytosis (manual Basophilic Stippling Anisocytosis (manual) Microcytosis (manual) Macrocytosis (manual) Spherocytes Sickle Cells Target Cells Tear Drop Cells Ovalocytes Stomatocytes Helmet Cells Bernstein-Wyboo Bodies [place] Cells Acanthocytes (Spur) Rouleaux Schistocytes PT (9.7-12.2) SECONDS INR APTT (21-34) SECONDS pO2 41 (30-55) mm/Hg VBG pH 7.48 H (7.32-7.43) VBG pCO2 20 L (40-60) mmHg VBG HCO3 19.6 mmol/L VBG Total CO2 15.5 L (22-28) mmol/L VBG O2 Sat (Calc) 80.9 H (40-65) % VBG Base Excess -6.3 L (0.0-2.0) mmol/L VBG Potassium 2.2 L* (3.6-5.2) mmol/L Glucose 114 H (75-110) mg/dl Lactate 3.7 H (0.7-2.1) mmol/L Crit Value Called To Jayden,er/rn Crit Value Called By Taylor moe rcp Crit Value Read Back Y Blood Gas Notified Time 1931 Sodium 139.0 135 (132-148) mmol/L Potassium 3.5 L (3.6-5.2) mmol/L Chloride 111.0 H 97 L (98-107) mmol/L Carbon Dioxide 13 L (22-30) mmol/L Anion Gap 28 H (10-20) BUN 19 (9-20) mg/dL Creatinine 1.0 (0.8-1.5) mg/dL Est GFR ( Amer) > 60 Est GFR (Non-Af Amer) > 60 POC Glucose (mg/dL) (65-110) mg/dL Random Glucose 210 H (75-110) mg/dL Lactic Acid (0.7-2.1) mmol/L Calcium 9.3 (8.6-10.4) mg/dl Phosphorus 1.8 L (2.5-4.5) mg/dL Magnesium 1.4 L (1.6-2.3) mg/dL Total Bilirubin 2.1 H (0.2-1.3) mg/dL AST 82 H D (17-59) U/L ALT 37 (21-72) U/L Alkaline Phosphatase 359 H (38-126) U/L Troponin I < 0.0120 (0.00-0.120) ng/mL Total Protein 7.0 (6.3-8.3) g/dL Albumin 4.0 (3.5-5.0) g/dL Globulin 3.0 (2.2-3.9) gm/dL Albumin/Globulin Ratio 1.3 (1.0-2.1) Venous Blood Potassium 2.2 L* (3.6-5.2) mmol/L Urine Color (YELLOW) Urine Clarity (Clear) Urine pH (5.0-8.0) Ur Specific [place] (1.003-1.030) Urine Protein (NEGATIVE) mg/dL Urine Glucose (UA) (Normal) mg/dL Urine Ketones (NEGATIVE) mg/dL Urine Blood (NEGATIVE) Urine Nitrate (NEGATIVE) Urine Bilirubin (NEGATIVE) Urine Urobilinogen (0.2-1.0) mg/dL Ur Leukocyte Esterase (Negative) Maria Del Rosario/uL Urine WBC (Auto) (0-5) /hpf Urine RBC (Auto) (0-3) /hpf Ur Squamous Epith Cells (0-5) /hpf Blood Type A POSITIVE Antibody Screen Negative 05/08/18 05/08/18 Range/Units 18:29 18:29 WBC 0.3 L* D (4.8-10.8) K/uL RBC 2.55 L (4.40-5.90) Mil/uL Hgb 8.3 L D (12.0-18.0) g/dL Hct 24.2 L (35.0-51.0) % MCV 94.9 H (80.0-94.0) fL MCH 32.5 H (27.0-31.0) pg MCHC 34.2 (33.0-37.0) g/dL RDW 19.2 H (11.5-14.5) % Plt Count 9 L* D (130-400) K/uL MPV 7.9 (7.2-11.7) fL Neut % (Auto) 2.2 L (50.0-75.0) % Lymph % (Auto) 95.4 H (20.0-40.0) % [place] % (Auto) 2.2 (0.0-10.0) % Eos % (Auto) 0.2 (0.0-4.0) % Baso % (Auto) 0.0 (0.0-2.0) % Neut # (Auto) 0.0 L (1.8-7.0) K/uL Lymph # (Auto) 0.3 L (1.0-4.3) K/uL [place] # (Auto) 0.0 (0.0-0.8) K/uL Eos # (Auto) 0.0 (0.0-0.7) K/uL Baso # (Auto) 0.0 (0.0-0.2) K/uL Total Counted Cancelled Neutrophils % (Manual) Cancelled Band Neutrophils % Cancelled Lymphocytes % (Manual) Cancelled Reactive Lymphs % Cancelled Monocytes % (Manual) Cancelled Eosinophils % (Manual) Cancelled Basophils % (Manual) Cancelled Metamyelocytes % Cancelled Myelocytes % Cancelled Promyelocytes % Cancelled Blast Cells % Cancelled Plasma Cell % (Manual) Cancelled Nucleated RBC % Cancelled Differential Comment Hypersegmented Polys Cancelled Smudge Cells Cancelled Toxic Granulation Cancelled Dohle Bodies Cancelled Kavita Rods Cancelled Platelet Estimate Cancelled Plt Clumps, EDTA Cancelled Large Platelets Cancelled Giant Platelets Cancelled RBC Morphology Cancelled Polychromasia Cancelled Hypochromasia (manual) Cancelled Poikilocytosis (manual Cancelled Basophilic Stippling Cancelled Anisocytosis (manual) Cancelled Microcytosis (manual) Cancelled Macrocytosis (manual) Cancelled Spherocytes Cancelled Sickle Cells Cancelled Target Cells Cancelled Tear Drop Cells Cancelled Ovalocytes Cancelled Stomatocytes Cancelled Helmet Cells Cancelled Bernstein-Wyboo Bodies Cancelled [place] Cells Cancelled Acanthocytes (Spur) Cancelled Rouleaux Cancelled Schistocytes Cancelled PT 17.3 H (9.7-12.2) SECONDS INR 1.6 APTT 24 (21-34) SECONDS pO2 (30-55) mm/Hg VBG pH (7.32-7.43) VBG pCO2 (40-60) mmHg VBG HCO3 mmol/L VBG Total CO2 (22-28) mmol/L VBG O2 Sat (Calc) (40-65) % VBG Base Excess (0.0-2.0) mmol/L VBG Potassium (3.6-5.2) mmol/L Glucose (75-110) mg/dl Lactate (0.7-2.1) mmol/L Crit Value Called To Crit Value Called By Crit Value Read Back Blood Gas Notified Time Sodium (132-148) mmol/L Potassium (3.6-5.2) mmol/L Chloride (98-107) mmol/L Carbon Dioxide (22-30) mmol/L Anion Gap (10-20) BUN (9-20) mg/dL Creatinine (0.8-1.5) mg/dL Est GFR ( Amer) Est GFR (Non-Af Amer) POC Glucose (mg/dL) (65-110) mg/dL Random Glucose (75-110) mg/dL Lactic Acid (0.7-2.1) mmol/L Calcium (8.6-10.4) mg/dl Phosphorus (2.5-4.5) mg/dL Magnesium (1.6-2.3) mg/dL Total Bilirubin (0.2-1.3) mg/dL AST (17-59) U/L ALT (21-72) U/L Alkaline Phosphatase (38-126) U/L Troponin I (0.00-0.120) ng/mL Total Protein (6.3-8.3) g/dL Albumin (3.5-5.0) g/dL Globulin (2.2-3.9) gm/dL Albumin/Globulin Ratio (1.0-2.1) Venous Blood Potassium (3.6-5.2) mmol/L Urine Color (YELLOW) Urine Clarity (Clear) Urine pH (5.0-8.0) Ur Specific [place] (1.003-1.030) Urine Protein (NEGATIVE) mg/dL Urine Glucose (UA) (Normal) mg/dL Urine Ketones (NEGATIVE) mg/dL Urine Blood (NEGATIVE) Urine Nitrate (NEGATIVE) Urine Bilirubin (NEGATIVE) Urine Urobilinogen (0.2-1.0) mg/dL Ur Leukocyte Esterase (Negative) Maria Del Rosario/uL Urine WBC (Auto) (0-5) /hpf Urine RBC (Auto) (0-3) /hpf Ur Squamous Epith Cells (0-5) /hpf Blood Type Antibody Screen Laboratory Results - last 24 hr 05/08/18 05/08/18 05/08/18 18:29 18:29 18:29 WBC 0.3 L* D RBC 2.55 L Hgb 8.3 L D Hct 24.2 L MCV 94.9 H MCH 32.5 H MCHC 34.2 RDW 19.2 H Plt Count 9 L* D MPV 7.9 Neut % (Auto) 2.2 L Lymph % (Auto) 95.4 H [place] % (Auto) 2.2 Eos % (Auto) 0.2 Baso % (Auto) 0.0 Neut # (Auto) 0.0 L Lymph # (Auto) 0.3 L [place] # (Auto) 0.0 Eos # (Auto) 0.0 Baso # (Auto) 0.0 Total Counted Cancelled Neutrophils % (Manual) Cancelled Band Neutrophils % Cancelled Lymphocytes % (Manual) Cancelled Reactive Lymphs % Cancelled Monocytes % (Manual) Cancelled Eosinophils % (Manual) Cancelled Basophils % (Manual) Cancelled Metamyelocytes % Cancelled Myelocytes % Cancelled Promyelocytes % Cancelled Blast Cells % Cancelled Plasma Cell % (Manual) Cancelled Nucleated RBC % Cancelled Differential Comment Hypersegmented Polys Cancelled Smudge Cells Cancelled Toxic Granulation Cancelled Dohle Bodies Cancelled Kavita Rods Cancelled Platelet Estimate Cancelled Plt Clumps, EDTA Cancelled Large Platelets Cancelled Giant Platelets Cancelled RBC Morphology Cancelled Polychromasia Cancelled Hypochromasia (manual) Cancelled Poikilocytosis (manual Cancelled Basophilic Stippling Cancelled Anisocytosis (manual) Cancelled Microcytosis (manual) Cancelled Macrocytosis (manual) Cancelled Spherocytes Cancelled Sickle Cells Cancelled Target Cells Cancelled Tear Drop Cells Cancelled Ovalocytes Cancelled Stomatocytes Cancelled Helmet Cells Cancelled Bernstein-Wyboo Bodies Cancelled [place] Cells Cancelled Acanthocytes (Spur) Cancelled Rouleaux Cancelled Schistocytes Cancelled PT 17.3 H INR 1.6 APTT 24 pO2 VBG pH VBG pCO2 VBG HCO3 VBG Total CO2 VBG O2 Sat (Calc) VBG Base Excess VBG Potassium Glucose Lactate Crit Value Called To Crit Value Called By Crit Value Read Back Blood Gas Notified Time Sodium Potassium Chloride Carbon Dioxide Anion Gap BUN Creatinine Est GFR ( Amer) Est GFR (Non-Af Amer) POC Glucose (mg/dL) Random Glucose Lactic Acid Calcium Phosphorus Magnesium Total Bilirubin AST ALT Alkaline Phosphatase Troponin I Total Protein Albumin Globulin Albumin/Globulin Ratio Venous Blood Potassium Urine Color Urine Clarity Urine pH Ur Specific [place] Urine Protein Urine Glucose (UA) Urine Ketones Urine Blood Urine Nitrate Urine Bilirubin Urine Urobilinogen Ur Leukocyte Esterase Urine WBC (Auto) Urine RBC (Auto) Ur Squamous Epith Cells Blood Type A POSITIVE Antibody Screen Negative 05/08/18 05/08/18 05/08/18 18:31 19:25 19:48 WBC RBC Hgb Hct MCV MCH MCHC RDW Plt Count MPV Neut % (Auto) Lymph % (Auto) [place] % (Auto) Eos % (Auto) Baso % (Auto) Neut # (Auto) Lymph # (Auto) [place] # (Auto) Eos # (Auto) Baso # (Auto) Total Counted Neutrophils % (Manual) Band Neutrophils % Lymphocytes % (Manual) Reactive Lymphs % Monocytes % (Manual) Eosinophils % (Manual) Basophils % (Manual) Metamyelocytes % Myelocytes % Promyelocytes % Blast Cells % Plasma Cell % (Manual) Nucleated RBC % Differential Comment Hypersegmented Polys Smudge Cells Toxic Granulation Dohle Bodies Kavita Rods Platelet Estimate Plt Clumps, EDTA Large Platelets Giant Platelets RBC Morphology Polychromasia Hypochromasia (manual) Poikilocytosis (manual Basophilic Stippling Anisocytosis (manual) Microcytosis (manual) Macrocytosis (manual) Spherocytes Sickle Cells Target Cells Tear Drop Cells Ovalocytes Stomatocytes Helmet Cells Bernstein-Wyboo Bodies [place] Cells Acanthocytes (Spur) Rouleaux Schistocytes PT INR APTT pO2 41 VBG pH 7.48 H VBG pCO2 20 L VBG HCO3 19.6 VBG Total CO2 15.5 L VBG O2 Sat (Calc) 80.9 H VBG Base Excess -6.3 L VBG Potassium 2.2 L* Glucose 114 H Lactate 3.7 H Crit Value Called To deon Carpenter/rn Crit Value Called By Taylor moe rcp Crit Value Read Back Y Blood Gas Notified Time 1931 Sodium 135 139.0 Potassium 3.5 L Chloride 97 L 111.0 H Carbon Dioxide 13 L Anion Gap 28 H BUN 19 Creatinine 1.0 Est GFR ( Amer) > 60 Est GFR (Non-Af Amer) > 60 POC Glucose (mg/dL) Random Glucose 210 H Lactic Acid Calcium 9.3 Phosphorus 1.8 L Magnesium 1.4 L Total Bilirubin 2.1 H AST 82 H D ALT 37 Alkaline Phosphatase 359 H Troponin I < 0.0120 Total Protein 7.0 Albumin 4.0 Globulin 3.0 Albumin/Globulin Ratio 1.3 Venous Blood Potassium 2.2 L* Urine Color Yellow Urine Clarity Clear Urine pH 5.0 Ur Specific [place] 1.012 Urine Protein 1+ H Urine Glucose (UA) Normal Urine Ketones Negative Urine Blood 2+ H Urine Nitrate Negative Urine Bilirubin Negative Urine Urobilinogen 4.0 Ur Leukocyte Esterase Neg Urine WBC (Auto) 3 Urine RBC (Auto) 18 H Ur Squamous Epith Cells < 1 Blood Type Antibody Screen 05/08/18 05/09/18 05/09/18 21:57 05:29 05:29 WBC 0.1 L* D RBC 2.26 L Hgb 7.2 L Hct 20.0 L MCV 88.4 D MCH 31.8 H MCHC 35.9 RDW 18.8 H Plt Count 45 L D MPV 7.2 Neut % (Auto) 12.7 L Lymph % (Auto) 74.3 H [place] % (Auto) 5.1 Eos % (Auto) 7.9 H Baso % (Auto) 0.0 Neut # (Auto) 0.0 L Lymph # (Auto) 0.1 L [place] # (Auto) 0.0 Eos # (Auto) 0.0 Baso # (Auto) 0.0 Total Counted Cancelled Neutrophils % (Manual) Cancelled Band Neutrophils % Cancelled Lymphocytes % (Manual) Cancelled Reactive Lymphs % Cancelled Monocytes % (Manual) Cancelled Eosinophils % (Manual) Cancelled Basophils % (Manual) Cancelled Metamyelocytes % Cancelled Myelocytes % Cancelled Promyelocytes % Cancelled Blast Cells % Cancelled Plasma Cell % (Manual) Cancelled Nucleated RBC % Cancelled Differential Comment Hypersegmented Polys Cancelled Smudge Cells Cancelled Toxic Granulation Cancelled Dohle Bodies Cancelled Kavita Rods Cancelled Platelet Estimate Cancelled Plt Clumps, EDTA Cancelled Large Platelets Cancelled Giant Platelets Cancelled RBC Morphology Cancelled Polychromasia Cancelled Hypochromasia (manual) Cancelled Poikilocytosis (manual Cancelled Basophilic Stippling Cancelled Anisocytosis (manual) Cancelled Microcytosis (manual) Cancelled Macrocytosis (manual) Cancelled Spherocytes Cancelled Sickle Cells Cancelled Target Cells Cancelled Tear Drop Cells Cancelled Ovalocytes Cancelled Stomatocytes Cancelled Helmet Cells Cancelled Bernstein-Wyboo Bodies Cancelled [place] Cells Cancelled Acanthocytes (Spur) Cancelled Rouleaux Cancelled Schistocytes Cancelled PT INR APTT pO2 90 H VBG pH 7.50 H VBG pCO2 27 L VBG HCO3 24.3 VBG Total CO2 21.9 L VBG O2 Sat (Calc) 97.0 H VBG Base Excess -0.8 L VBG Potassium 2.8 L Glucose 139 H Lactate 3.4 H Crit Value Called To Crit Value Called By Crit Value Read Back Blood Gas Notified Time Sodium 136.0 138 Potassium 3.4 L Chloride 105.0 105 Carbon Dioxide 21 L Anion Gap 15 BUN 18 Creatinine 0.7 L Est GFR ( Amer) > 60 Est GFR (Non-Af Amer) > 60 POC Glucose (mg/dL) Random Glucose 122 H Lactic Acid Calcium 8.1 L Phosphorus 3.1 Magnesium 1.2 L Total Bilirubin 1.7 H AST 57 ALT 39 Alkaline Phosphatase 223 H D Troponin I Total Protein 5.7 L Albumin 2.9 L D Globulin 2.8 Albumin/Globulin Ratio 1.1 Venous Blood Potassium 2.8 L Urine Color Urine Clarity Urine pH Ur Specific [place] Urine Protein Urine Glucose (UA) Urine Ketones Urine Blood Urine Nitrate Urine Bilirubin Urine Urobilinogen Ur Leukocyte Esterase Urine WBC (Auto) Urine RBC (Auto) Ur Squamous Epith Cells Blood Type Antibody Screen 05/09/18 05/09/18 05:29 07:51 WBC RBC Hgb Hct MCV MCH MCHC RDW Plt Count MPV Neut % (Auto) Lymph % (Auto) [place] % (Auto) Eos % (Auto) Baso % (Auto) Neut # (Auto) Lymph # (Auto) [place] # (Auto) Eos # (Auto) Baso # (Auto) Total Counted Neutrophils % (Manual) Band Neutrophils % Lymphocytes % (Manual) Reactive Lymphs % Monocytes % (Manual) Eosinophils % (Manual) Basophils % (Manual) Metamyelocytes % Myelocytes % Promyelocytes % Blast Cells % Plasma Cell % (Manual) Nucleated RBC % Differential Comment Hypersegmented Polys Smudge Cells Toxic Granulation Dohle Bodies Kavita Rods Platelet Estimate Plt Clumps, EDTA Large Platelets Giant Platelets RBC Morphology Polychromasia Hypochromasia (manual) Poikilocytosis (manual Basophilic Stippling Anisocytosis (manual) Microcytosis (manual) Macrocytosis (manual) Spherocytes Sickle Cells Target Cells Tear Drop Cells Ovalocytes Stomatocytes Helmet Cells Bernstein-Wyboo Bodies [place] Cells Acanthocytes (Spur) Rouleaux Schistocytes PT INR APTT pO2 VBG pH VBG pCO2 VBG HCO3 VBG Total CO2 VBG O2 Sat (Calc) VBG Base Excess VBG Potassium Glucose Lactate Crit Value Called To Crit Value Called By Crit Value Read Back Blood Gas Notified Time Sodium Potassium Chloride Carbon Dioxide Anion Gap BUN Creatinine Est GFR ( Amer) Est GFR (Non-Af Amer) POC Glucose (mg/dL) 109 Random Glucose Lactic Acid 2.6 H Calcium Phosphorus Magnesium Total Bilirubin AST ALT Alkaline Phosphatase Troponin I Total Protein Albumin Globulin Albumin/Globulin Ratio Venous Blood Potassium Urine Color Urine Clarity Urine pH Ur Specific [place] Urine Protein Urine Glucose (UA) Urine Ketones Urine Blood Urine Nitrate Urine Bilirubin Urine Urobilinogen Ur Leukocyte Esterase Urine WBC (Auto) Urine RBC (Auto) Ur Squamous Epith Cells Blood Type Antibody Screen EKG/Cardiology Studies: Cardiology / EKG Studies 05/08/18 18:09 ELECTROCARDIOGRAM Stat Comment: Mode Of Transportation: Reason For Exam: BASELINE Review of Systems - Review of Systems All systems: reviewed and no additional remarkable complaints except (as per HPI ) Critical Care Progress Note - Prophylaxis DVT Prophylaxis DVT: SCDs - Nutrition Nutrition: Nutrition Category Date Time Status Regular Diet [DIET] Diets 05/09/18 Breakfast Active Assessment/Plan - Assessment and Plan (Free Text) Plan: Patient is a 62 year old male with a PMH of lung CA (with multiple metastases-- pancreas, bone, brain, liver) s/p radiation (last on Apr 27) and chemotherapy (last on May 07), HTN, HLD, anemia, gastritis, anxiety, CABG who was admitted to the ICU for septic shock and neutropenic fever. Plan: Neuro: - Patient is AAOx3 - continue to monitor for mental status changes Cardiovascular: ECG on admission: Sinus tachycardia with PVCs Patient remains hypotensive and tachycardic. IV NS @ 100cc/hr and on Levophed drip. Pulm: maintain SpO2 > 95% VBG 05/08/18: pO2 90, pH 7.50, pCO2 27, HCO3 24.3 Renal: - BUN/Cr stable 17/0.7 - UA: WBC 3 (normal), negative nitrate and leukocyte esterase - replete electrolytes as needed Hematology: - H/H 7.2/20.0 (downtrending). Transfused 2 units PRBC. - Platelet count improved to 45 from 9 yesterday, after irradiated and leukoreduced platelet transfusion yesterday) - Coag: PT 17.3 (elevated), INR 1.6, APTT 24 - Consult to Dr. Bae. Help appreciated. Infectious Disease: - afebrile at present. Tmax over 24h: 104.0 F - WBC critically low: 0.1 - Lactic acid: 2.6 - CXR 05/08: no focal consolidation - UA: WBC 3 (normal), negative nitrate and leukocyte esterase - blood cultures, urine cultures, MRSA screen sent. - Cefepime 2gm IV q8h - Micafungin 100mg q24h - Tobraymycin 250mg q24h - Vancomycin 1gm q12h - ID Consult to Dr. Rasmussen. Help appreciated. Gastrointestinal: - regular diet - ALT/AST normal - total biliruin downtrending but elevated at 1.7 - Alkaline phosphatase downtrending but elevated at 223 Endocrine - maintain euglycemia Prophylaxis: - VTE: chemical prophylaxis contraindicated due to thrombocytopenia - Consult to palliative care Discussed with Dr. Ahmadi. <Luther Ahmadi - Last Filed: 05/09/18 17:45> CCU Subjective - Physician Review Critical Care Time Spent (in minutes): 35 CCU Objective - Vital Signs / Intake & Output Vital Signs (Last 4 hours): Vital Signs Temp Pulse Resp BP Pulse Ox 05/09/18 17:00 100 H 21 98 05/09/18 16:57 93 H 19 90/43 L 95 05/09/18 16:50 94 H 25 H 89/42 L 96 05/09/18 16:27 133 H 20 79/41 L 96 05/09/18 16:01 95 H 23 82/43 L 96 05/09/18 16:00 99 F 96 H 21 96 05/09/18 15:57 94 H 22 96 05/09/18 15:52 99 F 94 H 19 92/43 L 05/09/18 15:50 96 H 21 92/43 L 97 05/09/18 15:44 98 H 23 85/41 L 97 05/09/18 15:25 99 F 96 H 19 85/41 L 05/09/18 15:00 102 H 17 97 05/09/18 14:55 99.6 F 102 H 16 101/49 L 05/09/18 14:52 103 H 16 101/49 L 97 05/09/18 14:37 102 H 22 93/47 L 97 05/09/18 14:23 99.6 F 103 H 17 95/56 L 05/09/18 14:22 117 H 16 95/56 L 97 05/09/18 14:07 105 H 19 93/50 L 97 05/09/18 14:00 104 H 18 97 05/09/18 13:53 100 F H 103 H 22 92/48 L 05/09/18 13:52 104 H 22 92/48 L 97 Intake and Output (Last 8hrs): Intake & Output 05/09/18 05/09/18 05/09/18 06:59 14:59 22:59 Intake Total 619.0 1945.0 702.5 Output Total 1360 400 Balance -741.0 1545.0 702.5 Weight 121 lb Intake: IV 74 160 15 Intake, IV Amount 245.0 1005.0 107.5 RIGHT FEMORAL MEDIAL PORT 45.0 105.0 7.5 Right Forearm 100 right femoral proximal 200 800 100 port Oral 300 700 Blood Product 80 580 Red Blood Cells Cpd As1 0 325 Lr Unit [id number] Output: Urine 1360 400 Urine, Voided 460 400 Stool 0 0 Other: Voiding Method Urinal - Medications Active Medications: Active Medications Generic Name Dose Route Start Last Admin Trade Name Freq PRN Reason Stop Dose Admin Norepinephrine Bitartrate 4 mg 254 mls @ 15.24 mls/hr 05/09/18 00:05 16:00 / Sodium Chloride IV 0 mcg/min .[id number] PRN 0 mls/hr TITRATE PER MD ORDER Titration Protocol 4 MCG/MIN Cefepime HCl 2 gm in 100 mls @ 200 mls/hr 05/09/18 01:30 05/09/18 17:30 Maxipime Iv 2 Gm Premix IVPB 05/14/18 01:31 200 mls/hr Q8H AWILDA Administration Protocol Vancomycin/Sodium Chloride 1 gm in 200 mls @ 166.6 mls/hr 05/09/18 02:00 16:06 Vancomycin 1 Gm/Ns 200 Ml IVPB 05/14/18 02:01 166.6 mls/hr Q12H AWILDA Administration Protocol Sodium Chloride 1,000 mls @ 100 mls/hr 05/09/18 02:30 05/09/18 15:11 Sodium Chloride 0.9% IV 100 mls/hr .Q10H AWILDA Administration Tobramycin Sulfate 250 mg/ 106.25 mls @ 100 mls/hr 05/09/18 11:00 05/09/18 11 :15 Sodium Chloride IV 100 mls/hr Q24H AWILDA Administration Protocol Micafungin Sodium 100 mg/ 100 mls @ 100 mls/hr 05/09/18 09:45 05/09/18 11:15 Sodium Chloride IV 100 mls/hr Q24H AWILDA Administration Protocol - Patient Studies Lab Studies: Microbiology Studies 05/08/18 19:48 Urine Culture - Final Urine No Growth (<1,000 CFU/ML) Lab Studies 05/09/18 05/09/18 05/09/18 Range/Units 11:32 07:51 05:29 WBC (4.8-10.8) K/uL RBC (4.40-5.90) Mil/uL Hgb (12.0-18.0) g/dL Hct (35.0-51.0) % MCV (80.0-94.0) fL MCH (27.0-31.0) pg MCHC (33.0-37.0) g/dL RDW (11.5-14.5) % Plt Count (130-400) K/uL MPV (7.2-11.7) fL Neut % (Auto) (50.0-75.0) % Lymph % (Auto) (20.0-40.0) % [place] % (Auto) (0.0-10.0) % Eos % (Auto) (0.0-4.0) % Baso % (Auto) (0.0-2.0) % Neut # (Auto) (1.8-7.0) K/uL Lymph # (Auto) (1.0-4.3) K/uL [place] # (Auto) (0.0-0.8) K/uL Eos # (Auto) (0.0-0.7) K/uL Baso # (Auto) (0.0-0.2) K/uL Total Counted Neutrophils % (Manual) Band Neutrophils % Lymphocytes % (Manual) Reactive Lymphs % Monocytes % (Manual) Eosinophils % (Manual) Basophils % (Manual) Metamyelocytes % Myelocytes % Promyelocytes % Blast Cells % Plasma Cell % (Manual) Nucleated RBC % Differential Comment Hypersegmented Polys Smudge Cells Toxic Granulation Dohle Bodies Kavita Rods Platelet Estimate Plt Clumps, EDTA Large Platelets Giant Platelets RBC Morphology Polychromasia Hypochromasia (manual) Poikilocytosis (manual Basophilic Stippling Anisocytosis (manual) Microcytosis (manual) Macrocytosis (manual) Spherocytes Sickle Cells Target Cells Tear Drop Cells Ovalocytes Stomatocytes Helmet Cells Bernstein-Wyboo Bodies [place] Cells Acanthocytes (Spur) Rouleaux Schistocytes PT (9.7-12.2) SECONDS INR APTT (21-34) SECONDS pO2 (30-55) mm/Hg VBG pH (7.32-7.43) VBG pCO2 (40-60) mmHg VBG HCO3 mmol/L VBG Total CO2 (22-28) mmol/L VBG O2 Sat (Calc) (40-65) % VBG Base Excess (0.0-2.0) mmol/L VBG Potassium (3.6-5.2) mmol/L Glucose (75-110) mg/dl Lactate (0.7-2.1) mmol/L Crit Value Called To Crit Value Called By Crit Value Read Back Blood Gas Notified Time Sodium (132-148) mmol/L Potassium (3.6-5.2) mmol/L Chloride (98-107) mmol/L Carbon Dioxide (22-30) mmol/L Anion Gap (10-20) BUN (9-20) mg/dL Creatinine (0.8-1.5) mg/dL Est GFR ( Amer) Est GFR (Non-Af Amer) POC Glucose (mg/dL) 154 H 109 (65-110) mg/dL Random Glucose (75-110) mg/dL Lactic Acid 2.6 H (0.7-2.1) mmol/L Calcium (8.6-10.4) mg/dl Phosphorus (2.5-4.5) mg/dL Magnesium (1.6-2.3) mg/dL Total Bilirubin (0.2-1.3) mg/dL AST (17-59) U/L ALT (21-72) U/L Alkaline Phosphatase (38-126) U/L Troponin I (0.00-0.120) ng/mL Total Protein (6.3-8.3) g/dL Albumin (3.5-5.0) g/dL Globulin (2.2-3.9) gm/dL Albumin/Globulin Ratio (1.0-2.1) Venous Blood Potassium (3.6-5.2) mmol/L Urine Color (YELLOW) Urine Clarity (Clear) Urine pH (5.0-8.0) Ur Specific [place] (1.003-1.030) Urine Protein (NEGATIVE) mg/dL Urine Glucose (UA) (Normal) mg/dL Urine Ketones (NEGATIVE) mg/dL Urine Blood (NEGATIVE) Urine Nitrate (NEGATIVE) Urine Bilirubin (NEGATIVE) Urine Urobilinogen (0.2-1.0) mg/dL Ur Leukocyte Esterase (Negative) Maria Del Rosario/uL Urine WBC (Auto) (0-5) /hpf Urine RBC (Auto) (0-3) /hpf Ur Squamous Epith Cells (0-5) /hpf Blood Type Antibody Screen 05/09/18 05/09/18 05/08/18 Range/Units 05:29 05:29 21:57 WBC 0.1 L* D (4.8-10.8) K/uL RBC 2.26 L (4.40-5.90) Mil/uL Hgb 7.2 L (12.0-18.0) g/dL Hct 20.0 L (35.0-51.0) % MCV 88.4 D (80.0-94.0) fL MCH 31.8 H (27.0-31.0) pg MCHC 35.9 (33.0-37.0) g/dL RDW 18.8 H (11.5-14.5) % Plt Count 45 L D (130-400) K/uL MPV 7.2 (7.2-11.7) fL Neut % (Auto) 12.7 L (50.0-75.0) % Lymph % (Auto) 74.3 H (20.0-40.0) % [place] % (Auto) 5.1 (0.0-10.0) % Eos % (Auto) 7.9 H (0.0-4.0) % Baso % (Auto) 0.0 (0.0-2.0) % Neut # (Auto) 0.0 L (1.8-7.0) K/uL Lymph # (Auto) 0.1 L (1.0-4.3) K/uL [place] # (Auto) 0.0 (0.0-0.8) K/uL Eos # (Auto) 0.0 (0.0-0.7) K/uL Baso # (Auto) 0.0 (0.0-0.2) K/uL Total Counted Cancelled Neutrophils % (Manual) Cancelled Band Neutrophils % Cancelled Lymphocytes % (Manual) Cancelled Reactive Lymphs % Cancelled Monocytes % (Manual) Cancelled Eosinophils % (Manual) Cancelled Basophils % (Manual) Cancelled Metamyelocytes % Cancelled Myelocytes % Cancelled Promyelocytes % Cancelled Blast Cells % Cancelled Plasma Cell % (Manual) Cancelled Nucleated RBC % Cancelled Differential Comment Hypersegmented Polys Cancelled Smudge Cells Cancelled Toxic Granulation Cancelled Dohle Bodies Cancelled Kavita Rods Cancelled Platelet Estimate Cancelled Plt Clumps, EDTA Cancelled Large Platelets Cancelled Giant Platelets Cancelled RBC Morphology Cancelled Polychromasia Cancelled Hypochromasia (manual) Cancelled Poikilocytosis (manual Cancelled Basophilic Stippling Cancelled Anisocytosis (manual) Cancelled Microcytosis (manual) Cancelled Macrocytosis (manual) Cancelled Spherocytes Cancelled Sickle Cells Cancelled Target Cells Cancelled Tear Drop Cells Cancelled Ovalocytes Cancelled Stomatocytes Cancelled Helmet Cells Cancelled Bernstein-Wyboo Bodies Cancelled [place] Cells Cancelled Acanthocytes (Spur) Cancelled Rouleaux Cancelled Schistocytes Cancelled PT (9.7-12.2) SECONDS INR APTT (21-34) SECONDS pO2 90 H (30-55) mm/Hg VBG pH 7.50 H (7.32-7.43) VBG pCO2 27 L (40-60) mmHg VBG HCO3 24.3 mmol/L VBG Total CO2 21.9 L (22-28) mmol/L VBG O2 Sat (Calc) 97.0 H (40-65) % VBG Base Excess -0.8 L (0.0-2.0) mmol/L VBG Potassium 2.8 L (3.6-5.2) mmol/L Glucose 139 H (75-110) mg/dl Lactate 3.4 H (0.7-2.1) mmol/L Crit Value Called To Crit Value Called By Crit Value Read Back Blood Gas Notified Time Sodium 138 136.0 (132-148) mmol/L Potassium 3.4 L (3.6-5.2) mmol/L Chloride 105 105.0 (98-107) mmol/L Carbon Dioxide 21 L (22-30) mmol/L Anion Gap 15 (10-20) BUN 18 (9-20) mg/dL Creatinine 0.7 L (0.8-1.5) mg/dL Est GFR ( Amer) > 60 Est GFR (Non-Af Amer) > 60 POC Glucose (mg/dL) (65-110) mg/dL Random Glucose 122 H (75-110) mg/dL Lactic Acid (0.7-2.1) mmol/L Calcium 8.1 L (8.6-10.4) mg/dl Phosphorus 3.1 (2.5-4.5) mg/dL Magnesium 1.2 L (1.6-2.3) mg/dL Total Bilirubin 1.7 H (0.2-1.3) mg/dL AST 57 (17-59) U/L ALT 39 (21-72) U/L Alkaline Phosphatase 223 H D (38-126) U/L Troponin I (0.00-0.120) ng/mL Total Protein 5.7 L (6.3-8.3) g/dL Albumin 2.9 L D (3.5-5.0) g/dL Globulin 2.8 (2.2-3.9) gm/dL Albumin/Globulin Ratio 1.1 (1.0-2.1) Venous Blood Potassium 2.8 L (3.6-5.2) mmol/L Urine Color (YELLOW) Urine Clarity (Clear) Urine pH (5.0-8.0) Ur Specific [place] (1.003-1.030) Urine Protein (NEGATIVE) mg/dL Urine Glucose (UA) (Normal) mg/dL Urine Ketones (NEGATIVE) mg/dL Urine Blood (NEGATIVE) Urine Nitrate (NEGATIVE) Urine Bilirubin (NEGATIVE) Urine Urobilinogen (0.2-1.0) mg/dL Ur Leukocyte Esterase (Negative) Maria Del Rosario/uL Urine WBC (Auto) (0-5) /hpf Urine RBC (Auto) (0-3) /hpf Ur Squamous Epith Cells (0-5) /hpf Blood Type Antibody Screen 05/08/18 05/08/18 05/08/18 Range/Units 19:48 19:25 18:31 WBC (4.8-10.8) K/uL RBC (4.40-5.90) Mil/uL Hgb (12.0-18.0) g/dL Hct (35.0-51.0) % MCV (80.0-94.0) fL MCH (27.0-31.0) pg MCHC (33.0-37.0) g/dL RDW (11.5-14.5) % Plt Count (130-400) K/uL MPV (7.2-11.7) fL Neut % (Auto) (50.0-75.0) % Lymph % (Auto) (20.0-40.0) % [place] % (Auto) (0.0-10.0) % Eos % (Auto) (0.0-4.0) % Baso % (Auto) (0.0-2.0) % Neut # (Auto) (1.8-7.0) K/uL Lymph # (Auto) (1.0-4.3) K/uL [place] # (Auto) (0.0-0.8) K/uL Eos # (Auto) (0.0-0.7) K/uL Baso # (Auto) (0.0-0.2) K/uL Total Counted Neutrophils % (Manual) Band Neutrophils % Lymphocytes % (Manual) Reactive Lymphs % Monocytes % (Manual) Eosinophils % (Manual) Basophils % (Manual) Metamyelocytes % Myelocytes % Promyelocytes % Blast Cells % Plasma Cell % (Manual) Nucleated RBC % Differential Comment Hypersegmented Polys Smudge Cells Toxic Granulation Dohle Bodies Kavita Rods Platelet Estimate Plt Clumps, EDTA Large Platelets Giant Platelets RBC Morphology Polychromasia Hypochromasia (manual) Poikilocytosis (manual Basophilic Stippling Anisocytosis (manual) Microcytosis (manual) Macrocytosis (manual) Spherocytes Sickle Cells Target Cells Tear Drop Cells Ovalocytes Stomatocytes Helmet Cells Bernstein-Wyboo Bodies [place] Cells Acanthocytes (Spur) Rouleaux Schistocytes PT (9.7-12.2) SECONDS INR APTT (21-34) SECONDS pO2 41 (30-55) mm/Hg VBG pH 7.48 H (7.32-7.43) VBG pCO2 20 L (40-60) mmHg VBG HCO3 19.6 mmol/L VBG Total CO2 15.5 L (22-28) mmol/L VBG O2 Sat (Calc) 80.9 H (40-65) % VBG Base Excess -6.3 L (0.0-2.0) mmol/L VBG Potassium 2.2 L* (3.6-5.2) mmol/L Glucose 114 H (75-110) mg/dl Lactate 3.7 H (0.7-2.1) mmol/L Crit Value Called To deon Carpenter/rn Crit Value Called By Taylor moe rcp Crit Value Read Back Y Blood Gas Notified Time 1931 Sodium 139.0 135 (132-148) mmol/L Potassium 3.5 L (3.6-5.2) mmol/L Chloride 111.0 H 97 L (98-107) mmol/L Carbon Dioxide 13 L (22-30) mmol/L Anion Gap 28 H (10-20) BUN 19 (9-20) mg/dL Creatinine 1.0 (0.8-1.5) mg/dL Est GFR ( Amer) > 60 Est GFR (Non-Af Amer) > 60 POC Glucose (mg/dL) (65-110) mg/dL Random Glucose 210 H (75-110) mg/dL Lactic Acid (0.7-2.1) mmol/L Calcium 9.3 (8.6-10.4) mg/dl Phosphorus 1.8 L (2.5-4.5) mg/dL Magnesium 1.4 L (1.6-2.3) mg/dL Total Bilirubin 2.1 H (0.2-1.3) mg/dL AST 82 H D (17-59) U/L ALT 37 (21-72) U/L Alkaline Phosphatase 359 H (38-126) U/L Troponin I < 0.0120 (0.00-0.120) ng/mL Total Protein 7.0 (6.3-8.3) g/dL Albumin 4.0 (3.5-5.0) g/dL Globulin 3.0 (2.2-3.9) gm/dL Albumin/Globulin Ratio 1.3 (1.0-2.1) Venous Blood Potassium 2.2 L* (3.6-5.2) mmol/L Urine Color Yellow (YELLOW) Urine Clarity Clear (Clear) Urine pH 5.0 (5.0-8.0) Ur Specific [place] 1.012 (1.003-1.030) Urine Protein 1+ H (NEGATIVE) mg/dL Urine Glucose (UA) Normal (Normal) mg/dL Urine Ketones Negative (NEGATIVE) mg/dL Urine Blood 2+ H (NEGATIVE) Urine Nitrate Negative (NEGATIVE) Urine Bilirubin Negative (NEGATIVE) Urine Urobilinogen 4.0 (0.2-1.0) mg/dL Ur Leukocyte Esterase Neg (Negative) Maria Del Rosario/uL Urine WBC (Auto) 3 (0-5) /hpf Urine RBC (Auto) 18 H (0-3) /hpf Ur Squamous Epith Cells < 1 (0-5) /hpf Blood Type Antibody Screen 05/08/18 05/08/18 05/08/18 Range/Units 18:29 18:29 18:29 WBC 0.3 L* D (4.8-10.8) K/uL RBC 2.55 L (4.40-5.90) Mil/uL Hgb 8.3 L D (12.0-18.0) g/dL Hct 24.2 L (35.0-51.0) % MCV 94.9 H (80.0-94.0) fL MCH 32.5 H (27.0-31.0) pg MCHC 34.2 (33.0-37.0) g/dL RDW 19.2 H (11.5-14.5) % Plt Count 9 L* D (130-400) K/uL MPV 7.9 (7.2-11.7) fL Neut % (Auto) 2.2 L (50.0-75.0) % Lymph % (Auto) 95.4 H (20.0-40.0) % [place] % (Auto) 2.2 (0.0-10.0) % Eos % (Auto) 0.2 (0.0-4.0) % Baso % (Auto) 0.0 (0.0-2.0) % Neut # (Auto) 0.0 L (1.8-7.0) K/uL Lymph # (Auto) 0.3 L (1.0-4.3) K/uL [place] # (Auto) 0.0 (0.0-0.8) K/uL Eos # (Auto) 0.0 (0.0-0.7) K/uL Baso # (Auto) 0.0 (0.0-0.2) K/uL Total Counted Cancelled Neutrophils % (Manual) Cancelled Band Neutrophils % Cancelled Lymphocytes % (Manual) Cancelled Reactive Lymphs % Cancelled Monocytes % (Manual) Cancelled Eosinophils % (Manual) Cancelled Basophils % (Manual) Cancelled Metamyelocytes % Cancelled Myelocytes % Cancelled Promyelocytes % Cancelled Blast Cells % Cancelled Plasma Cell % (Manual) Cancelled Nucleated RBC % Cancelled Differential Comment Hypersegmented Polys Cancelled Smudge Cells Cancelled Toxic Granulation Cancelled Dohle Bodies Cancelled Kavita Rods Cancelled Platelet Estimate Cancelled Plt Clumps, EDTA Cancelled Large Platelets Cancelled Giant Platelets Cancelled RBC Morphology Cancelled Polychromasia Cancelled Hypochromasia (manual) Cancelled Poikilocytosis (manual Cancelled Basophilic Stippling Cancelled Anisocytosis (manual) Cancelled Microcytosis (manual) Cancelled Macrocytosis (manual) Cancelled Spherocytes Cancelled Sickle Cells Cancelled Target Cells Cancelled Tear Drop Cells Cancelled Ovalocytes Cancelled Stomatocytes Cancelled Helmet Cells Cancelled Bernstein-Wyboo Bodies Cancelled [place] Cells Cancelled Acanthocytes (Spur) Cancelled Rouleaux Cancelled Schistocytes Cancelled PT 17.3 H (9.7-12.2) SECONDS INR 1.6 APTT 24 (21-34) SECONDS pO2 (30-55) mm/Hg VBG pH (7.32-7.43) VBG pCO2 (40-60) mmHg VBG HCO3 mmol/L VBG Total CO2 (22-28) mmol/L VBG O2 Sat (Calc) (40-65) % VBG Base Excess (0.0-2.0) mmol/L VBG Potassium (3.6-5.2) mmol/L Glucose (75-110) mg/dl Lactate (0.7-2.1) mmol/L Crit Value Called To Crit Value Called By Crit Value Read Back Blood Gas Notified Time Sodium (132-148) mmol/L Potassium (3.6-5.2) mmol/L Chloride (98-107) mmol/L Carbon Dioxide (22-30) mmol/L Anion Gap (10-20) BUN (9-20) mg/dL Creatinine (0.8-1.5) mg/dL Est GFR ( Amer) Est GFR (Non-Af Amer) POC Glucose (mg/dL) (65-110) mg/dL Random Glucose (75-110) mg/dL Lactic Acid (0.7-2.1) mmol/L Calcium (8.6-10.4) mg/dl Phosphorus (2.5-4.5) mg/dL Magnesium (1.6-2.3) mg/dL Total Bilirubin (0.2-1.3) mg/dL AST (17-59) U/L ALT (21-72) U/L Alkaline Phosphatase (38-126) U/L Troponin I (0.00-0.120) ng/mL Total Protein (6.3-8.3) g/dL Albumin (3.5-5.0) g/dL Globulin (2.2-3.9) gm/dL Albumin/Globulin Ratio (1.0-2.1) Venous Blood Potassium (3.6-5.2) mmol/L Urine Color (YELLOW) Urine Clarity (Clear) Urine pH (5.0-8.0) Ur Specific [place] (1.003-1.030) Urine Protein (NEGATIVE) mg/dL Urine Glucose (UA) (Normal) mg/dL Urine Ketones (NEGATIVE) mg/dL Urine Blood (NEGATIVE) Urine Nitrate (NEGATIVE) Urine Bilirubin (NEGATIVE) Urine Urobilinogen (0.2-1.0) mg/dL Ur Leukocyte Esterase (Negative) Maria Del Rosario/uL Urine WBC (Auto) (0-5) /hpf Urine RBC (Auto) (0-3) /hpf Ur Squamous Epith Cells (0-5) /hpf Blood Type A POSITIVE Antibody Screen Negative Laboratory Results - last 24 hr 05/08/18 05/08/18 05/08/18 18:29 18:29 18:29 WBC 0.3 L* D RBC 2.55 L Hgb 8.3 L D Hct 24.2 L MCV 94.9 H MCH 32.5 H MCHC 34.2 RDW 19.2 H Plt Count 9 L* D MPV 7.9 Neut % (Auto) 2.2 L Lymph % (Auto) 95.4 H [place] % (Auto) 2.2 Eos % (Auto) 0.2 Baso % (Auto) 0.0 Neut # (Auto) 0.0 L Lymph # (Auto) 0.3 L [place] # (Auto) 0.0 Eos # (Auto) 0.0 Baso # (Auto) 0.0 Total Counted Cancelled Neutrophils % (Manual) Cancelled Band Neutrophils % Cancelled Lymphocytes % (Manual) Cancelled Reactive Lymphs % Cancelled Monocytes % (Manual) Cancelled Eosinophils % (Manual) Cancelled Basophils % (Manual) Cancelled Metamyelocytes % Cancelled Myelocytes % Cancelled Promyelocytes % Cancelled Blast Cells % Cancelled Plasma Cell % (Manual) Cancelled Nucleated RBC % Cancelled Differential Comment Hypersegmented Polys Cancelled Smudge Cells Cancelled Toxic Granulation Cancelled Dohle Bodies Cancelled Kavita Rods Cancelled Platelet Estimate Cancelled Plt Clumps, EDTA Cancelled Large Platelets Cancelled Giant Platelets Cancelled RBC Morphology Cancelled Polychromasia Cancelled Hypochromasia (manual) Cancelled Poikilocytosis (manual Cancelled Basophilic Stippling Cancelled Anisocytosis (manual) Cancelled Microcytosis (manual) Cancelled Macrocytosis (manual) Cancelled Spherocytes Cancelled Sickle Cells Cancelled Target Cells Cancelled Tear Drop Cells Cancelled Ovalocytes Cancelled Stomatocytes Cancelled Helmet Cells Cancelled Bernstein-Wyboo Bodies Cancelled [place] Cells Cancelled Acanthocytes (Spur) Cancelled Rouleaux Cancelled Schistocytes Cancelled PT 17.3 H INR 1.6 APTT 24 pO2 VBG pH VBG pCO2 VBG HCO3 VBG Total CO2 VBG O2 Sat (Calc) VBG Base Excess VBG Potassium Glucose Lactate Crit Value Called To Crit Value Called By Crit Value Read Back Blood Gas Notified Time Sodium Potassium Chloride Carbon Dioxide Anion Gap BUN Creatinine Est GFR ( Amer) Est GFR (Non-Af Amer) POC Glucose (mg/dL) Random Glucose Lactic Acid Calcium Phosphorus Magnesium Total Bilirubin AST ALT Alkaline Phosphatase Troponin I Total Protein Albumin Globulin Albumin/Globulin Ratio Venous Blood Potassium Urine Color Urine Clarity Urine pH Ur Specific [place] Urine Protein Urine Glucose (UA) Urine Ketones Urine Blood Urine Nitrate Urine Bilirubin Urine Urobilinogen Ur Leukocyte Esterase Urine WBC (Auto) Urine RBC (Auto) Ur Squamous Epith Cells Blood Type A POSITIVE Antibody Screen Negative 05/08/18 05/08/18 05/08/18 18:31 19:25 19:48 WBC RBC Hgb Hct MCV MCH MCHC RDW Plt Count MPV Neut % (Auto) Lymph % (Auto) [place] % (Auto) Eos % (Auto) Baso % (Auto) Neut # (Auto) Lymph # (Auto) [place] # (Auto) Eos # (Auto) Baso # (Auto) Total Counted Neutrophils % (Manual) Band Neutrophils % Lymphocytes % (Manual) Reactive Lymphs % Monocytes % (Manual) Eosinophils % (Manual) Basophils % (Manual) Metamyelocytes % Myelocytes % Promyelocytes % Blast Cells % Plasma Cell % (Manual) Nucleated RBC % Differential Comment Hypersegmented Polys Smudge Cells Toxic Granulation Dohle Bodies Kavita Rods Platelet Estimate Plt Clumps, EDTA Large Platelets Giant Platelets RBC Morphology Polychromasia Hypochromasia (manual) Poikilocytosis (manual Basophilic Stippling Anisocytosis (manual) Microcytosis (manual) Macrocytosis (manual) Spherocytes Sickle Cells Target Cells Tear Drop Cells Ovalocytes Stomatocytes Helmet Cells Bernstein-Wyboo Bodies [place] Cells Acanthocytes (Spur) Rouleaux Schistocytes PT INR APTT pO2 41 VBG pH 7.48 H VBG pCO2 20 L VBG HCO3 19.6 VBG Total CO2 15.5 L VBG O2 Sat (Calc) 80.9 H VBG Base Excess -6.3 L VBG Potassium 2.2 L* Glucose 114 H Lactate 3.7 H Crit Value Called To Jayden,er/rn Crit Value Called By Taylor moe rcp Crit Value Read Back Y Blood Gas Notified Time 1931 Sodium 135 139.0 Potassium 3.5 L Chloride 97 L 111.0 H Carbon Dioxide 13 L Anion Gap 28 H BUN 19 Creatinine 1.0 Est GFR ( Amer) > 60 Est GFR (Non-Af Amer) > 60 POC Glucose (mg/dL) Random Glucose 210 H Lactic Acid Calcium 9.3 Phosphorus 1.8 L Magnesium 1.4 L Total Bilirubin 2.1 H AST 82 H D ALT 37 Alkaline Phosphatase 359 H Troponin I < 0.0120 Total Protein 7.0 Albumin 4.0 Globulin 3.0 Albumin/Globulin Ratio 1.3 Venous Blood Potassium 2.2 L* Urine Color Yellow Urine Clarity Clear Urine pH 5.0 Ur Specific [place] 1.012 Urine Protein 1+ H Urine Glucose (UA) Normal Urine Ketones Negative Urine Blood 2+ H Urine Nitrate Negative Urine Bilirubin Negative Urine Urobilinogen 4.0 Ur Leukocyte Esterase Neg Urine WBC (Auto) 3 Urine RBC (Auto) 18 H Ur Squamous Epith Cells < 1 Blood Type Antibody Screen 05/08/18 05/09/18 05/09/18 21:57 05:29 05:29 WBC 0.1 L* D RBC 2.26 L Hgb 7.2 L Hct 20.0 L MCV 88.4 D MCH 31.8 H MCHC 35.9 RDW 18.8 H Plt Count 45 L D MPV 7.2 Neut % (Auto) 12.7 L Lymph % (Auto) 74.3 H [place] % (Auto) 5.1 Eos % (Auto) 7.9 H Baso % (Auto) 0.0 Neut # (Auto) 0.0 L Lymph # (Auto) 0.1 L [place] # (Auto) 0.0 Eos # (Auto) 0.0 Baso # (Auto) 0.0 Total Counted Cancelled Neutrophils % (Manual) Cancelled Band Neutrophils % Cancelled Lymphocytes % (Manual) Cancelled Reactive Lymphs % Cancelled Monocytes % (Manual) Cancelled Eosinophils % (Manual) Cancelled Basophils % (Manual) Cancelled Metamyelocytes % Cancelled Myelocytes % Cancelled Promyelocytes % Cancelled Blast Cells % Cancelled Plasma Cell % (Manual) Cancelled Nucleated RBC % Cancelled Differential Comment Hypersegmented Polys Cancelled Smudge Cells Cancelled Toxic Granulation Cancelled Dohle Bodies Cancelled Kavita Rods Cancelled Platelet Estimate Cancelled Plt Clumps, EDTA Cancelled Large Platelets Cancelled Giant Platelets Cancelled RBC Morphology Cancelled Polychromasia Cancelled Hypochromasia (manual) Cancelled Poikilocytosis (manual Cancelled Basophilic Stippling Cancelled Anisocytosis (manual) Cancelled Microcytosis (manual) Cancelled Macrocytosis (manual) Cancelled Spherocytes Cancelled Sickle Cells Cancelled Target Cells Cancelled Tear Drop Cells Cancelled Ovalocytes Cancelled Stomatocytes Cancelled Helmet Cells Cancelled Bernstein-[place] Bodies Cancelled [place] Cells Cancelled Acanthocytes (Spur) Cancelled Rouleaux Cancelled Schistocytes Cancelled PT INR APTT pO2 90 H VBG pH 7.50 H VBG pCO2 27 L VBG HCO3 24.3 VBG Total CO2 21.9 L VBG O2 Sat (Calc) 97.0 H VBG Base Excess -0.8 L VBG Potassium 2.8 L Glucose 139 H Lactate 3.4 H Crit Value Called To Crit Value Called By Crit Value Read Back Blood Gas Notified Time Sodium 136.0 138 Potassium 3.4 L Chloride 105.0 105 Carbon Dioxide 21 L Anion Gap 15 BUN 18 Creatinine 0.7 L Est GFR ( Amer) > 60 Est GFR (Non-Af Amer) > 60 POC Glucose (mg/dL) Random Glucose 122 H Lactic Acid Calcium 8.1 L Phosphorus 3.1 Magnesium 1.2 L Total Bilirubin 1.7 H AST 57 ALT 39 Alkaline Phosphatase 223 H D Troponin I Total Protein 5.7 L Albumin 2.9 L D Globulin 2.8 Albumin/Globulin Ratio 1.1 Venous Blood Potassium 2.8 L Urine Color Urine Clarity Urine pH Ur Specific [place] Urine Protein Urine Glucose (UA) Urine Ketones Urine Blood Urine Nitrate Urine Bilirubin Urine Urobilinogen Ur Leukocyte Esterase Urine WBC (Auto) Urine RBC (Auto) Ur Squamous Epith Cells Blood Type Antibody Screen 05/09/18 05/09/18 05/09/18 05:29 07:51 11:32 WBC RBC Hgb Hct MCV MCH MCHC RDW Plt Count MPV Neut % (Auto) Lymph % (Auto) [place] % (Auto) Eos % (Auto) Baso % (Auto) Neut # (Auto) Lymph # (Auto) [place] # (Auto) Eos # (Auto) Baso # (Auto) Total Counted Neutrophils % (Manual) Band Neutrophils % Lymphocytes % (Manual) Reactive Lymphs % Monocytes % (Manual) Eosinophils % (Manual) Basophils % (Manual) Metamyelocytes % Myelocytes % Promyelocytes % Blast Cells % Plasma Cell % (Manual) Nucleated RBC % Differential Comment Hypersegmented Polys Smudge Cells Toxic Granulation Dohle Bodies Kavita Rods Platelet Estimate Plt Clumps, EDTA Large Platelets Giant Platelets RBC Morphology Polychromasia Hypochromasia (manual) Poikilocytosis (manual Basophilic Stippling Anisocytosis (manual) Microcytosis (manual) Macrocytosis (manual) Spherocytes Sickle Cells Target Cells Tear Drop Cells Ovalocytes Stomatocytes Helmet Cells Bernstein-[place] Bodies [place]aud Cells Acanthocytes (Spur) Rouleaux Schistocytes PT INR APTT pO2 VBG pH VBG pCO2 VBG HCO3 VBG Total CO2 VBG O2 Sat (Calc) VBG Base Excess VBG Potassium Glucose Lactate Crit Value Called To Crit Value Called By Crit Value Read Back Blood Gas Notified Time Sodium Potassium Chloride Carbon Dioxide Anion Gap BUN Creatinine Est GFR ( Amer) Est GFR (Non-Af Amer) POC Glucose (mg/dL) 109 154 H Random Glucose Lactic Acid 2.6 H Calcium Phosphorus Magnesium Total Bilirubin AST ALT Alkaline Phosphatase Troponin I Total Protein Albumin Globulin Albumin/Globulin Ratio Venous Blood Potassium Urine Color Urine Clarity Urine pH Ur Specific [place] Urine Protein Urine Glucose (UA) Urine Ketones Urine Blood Urine Nitrate Urine Bilirubin Urine Urobilinogen Ur Leukocyte Esterase Urine WBC (Auto) Urine RBC (Auto) Ur Squamous Epith Cells Blood Type Antibody Screen EKG/Cardiology Studies: Cardiology / EKG Studies 05/08/18 18:09 ELECTROCARDIOGRAM Stat Comment: Mode Of Transportation: Reason For Exam: BASELINE Critical Care Progress Note - Nutrition Nutrition: Nutrition Category Date Time Status Regular Diet [DIET] Diets 05/09/18 Breakfast Active Attending/Attestation - Attestation I have personally seen and examined this patient.: Yes I have fully participated in the care of the patient.: Yes I have reviewed all pertinent clinical information: Yes Notes (Text): 05/09/18 17:44 seen and examined in the intensive care unit. Patient is a 62 year old male with a PMH of lung CA (with multiple metastases-- pancreas, bone, brain, liver) s/p radiation (last on Apr 27) and chemotherapy (last on May 07), HTN, HLD, anemia, gastritis, anxiety, CABG who was admitted to the ICU for septic shock and neutropenic fever. continue IV antibiotics Follow-up culture and sensitivity transfuse packed RBCs Follow-up H&H, platelet count and WBCs
[2018-05-09] MEDS: Micafungin 100 MG in Sodium Chloride 0.9% 100 ML IV SCH (11:15)
--- NOTE | 2018-05-09 17:42 | CP.PCM.HP ---
Past Patient History - Infectious Disease Hx of Infectious Diseases: None - Past Medical History & Family History Past Medical History?: Yes - Past Social History Smoking Status: Never Smoked - CARDIAC Hx Hypercholesterolemia: Yes Hx Hypertension: Yes Hx Pacemaker: No - PULMONARY Hx Respiratory Disorders: No - NEUROLOGICAL Hx Neurological Disorder: No Hx Paralysis: No - HEENT Hx HEENT Problems: No - RENAL Hx Chronic Kidney Disease: No - ENDOCRINE/METABOLIC Hx Endocrine Disorders: No - HEMATOLOGICAL/ONCOLOGICAL Hx Anemia: Yes - INTEGUMENTARY Hx Dermatological Problems: No - MUSCULOSKELETAL/RHEUMATOLOGICAL Hx Arthritis: Yes (HX OF B/L HIP PAIN L>R) Hx Falls: No - GASTROINTESTINAL Hx Gastritis: Yes - GENITOURINARY/GYNECOLOGICAL Hx Genitourinary Disorders: No - PSYCHIATRIC Hx Anxiety: Yes Hx Substance Use: No - SURGICAL HISTORY Hx Coronary Artery Bypass Graft: Yes - ANESTHESIA Hx Anesthesia: Yes Hx Anesthesia Reactions: No Hx Malignant Hyperthermia: No Has any member of the family had a problem w/ anesthesia?: No Meds Allergies/Adverse Reactions: Allergies Allergy/AdvReac Type Severity Reaction Status Date / Time No Known Allergies Allergy Verified 03/13/18 11:41 Results - Vital Signs Recent Vital Signs: Last Vital Signs Temp 99 F 05/09/18 16:00 Pulse 100 H 05/09/18 17:00 Resp 21 05/09/18 17:00 BP 90/43 L 05/09/18 16:57 Pulse Ox 98 05/09/18 17:00 - Labs Result Diagrams: 05/09/18 05:29 05/09/18 05:29 Labs: Laboratory Results - last 24 hr 05/08/18 05/08/18 05/08/18 18:29 18:29 18:29 WBC 0.3 L* D RBC 2.55 L Hgb 8.3 L D Hct 24.2 L MCV 94.9 H MCH 32.5 H MCHC 34.2 RDW 19.2 H Plt Count 9 L* D MPV 7.9 Neut % (Auto) 2.2 L Lymph % (Auto) 95.4 H [place] % (Auto) 2.2 Eos % (Auto) 0.2 Baso % (Auto) 0.0 Neut # (Auto) 0.0 L Lymph # (Auto) 0.3 L [place] # (Auto) 0.0 Eos # (Auto) 0.0 Baso # (Auto) 0.0 Total Counted Cancelled Neutrophils % (Manual) Cancelled Band Neutrophils % Cancelled Lymphocytes % (Manual) Cancelled Reactive Lymphs % Cancelled Monocytes % (Manual) Cancelled Eosinophils % (Manual) Cancelled Basophils % (Manual) Cancelled Metamyelocytes % Cancelled Myelocytes % Cancelled Promyelocytes % Cancelled Blast Cells % Cancelled Plasma Cell % (Manual) Cancelled Nucleated RBC % Cancelled Differential Comment Hypersegmented Polys Cancelled Smudge Cells Cancelled Toxic Granulation Cancelled Dohle Bodies Cancelled Kavita Rods Cancelled Platelet Estimate Cancelled Plt Clumps, EDTA Cancelled Large Platelets Cancelled Giant Platelets Cancelled RBC Morphology Cancelled Polychromasia Cancelled Hypochromasia (manual) Cancelled Poikilocytosis (manual Cancelled Basophilic Stippling Cancelled Anisocytosis (manual) Cancelled Microcytosis (manual) Cancelled Macrocytosis (manual) Cancelled Spherocytes Cancelled Sickle Cells Cancelled Target Cells Cancelled Tear Drop Cells Cancelled Ovalocytes Cancelled Stomatocytes Cancelled Helmet Cells Cancelled Bernstein-[place] Bodies Cancelled [place] Cells Cancelled Acanthocytes (Spur) Cancelled Rouleaux Cancelled Schistocytes Cancelled PT 17.3 H INR 1.6 APTT 24 pO2 VBG pH VBG pCO2 VBG HCO3 VBG Total CO2 VBG O2 Sat (Calc) VBG Base Excess VBG Potassium Glucose Lactate Crit Value Called To Crit Value Called By Crit Value Read Back Blood Gas Notified Time Sodium Potassium Chloride Carbon Dioxide Anion Gap BUN Creatinine Est GFR ( Amer) Est GFR (Non-Af Amer) POC Glucose (mg/dL) Random Glucose Lactic Acid Calcium Phosphorus Magnesium Total Bilirubin AST ALT Alkaline Phosphatase Troponin I Total Protein Albumin Globulin Albumin/Globulin Ratio Venous Blood Potassium Urine Color Urine Clarity Urine pH Ur Specific [place] Urine Protein Urine Glucose (UA) Urine Ketones Urine Blood Urine Nitrate Urine Bilirubin Urine Urobilinogen Ur Leukocyte Esterase Urine WBC (Auto) Urine RBC (Auto) Ur Squamous Epith Cells Blood Type A POSITIVE Antibody Screen Negative 05/08/18 05/08/18 05/08/18 18:31 19:25 19:48 WBC RBC Hgb Hct MCV MCH MCHC RDW Plt Count MPV Neut % (Auto) Lymph % (Auto) [place] % (Auto) Eos % (Auto) Baso % (Auto) Neut # (Auto) Lymph # (Auto) [place] # (Auto) Eos # (Auto) Baso # (Auto) Total Counted Neutrophils % (Manual) Band Neutrophils % Lymphocytes % (Manual) Reactive Lymphs % Monocytes % (Manual) Eosinophils % (Manual) Basophils % (Manual) Metamyelocytes % Myelocytes % Promyelocytes % Blast Cells % Plasma Cell % (Manual) Nucleated RBC % Differential Comment Hypersegmented Polys Smudge Cells Toxic Granulation Dohle Bodies Kavita Rods Platelet Estimate Plt Clumps, EDTA Large Platelets Giant Platelets RBC Morphology Polychromasia Hypochromasia (manual) Poikilocytosis (manual Basophilic Stippling Anisocytosis (manual) Microcytosis (manual) Macrocytosis (manual) Spherocytes Sickle Cells Target Cells Tear Drop Cells Ovalocytes Stomatocytes Helmet Cells Bernstein-[place] Bodies [place] Cells Acanthocytes (Spur) Rouleaux Schistocytes PT INR APTT pO2 41 VBG pH 7.48 H VBG pCO2 20 L VBG HCO3 19.6 VBG Total CO2 15.5 L VBG O2 Sat (Calc) 80.9 H VBG Base Excess -6.3 L VBG Potassium 2.2 L* Glucose 114 H Lactate 3.7 H Crit Value Called To Jayden,er/rn Crit Value Called By Taylor moe rcp Crit Value Read Back Y Blood Gas Notified Time 1931 Sodium 135 139.0 Potassium 3.5 L Chloride 97 L 111.0 H Carbon Dioxide 13 L Anion Gap 28 H BUN 19 Creatinine 1.0 Est GFR ( Amer) > 60 Est GFR (Non-Af Amer) > 60 POC Glucose (mg/dL) Random Glucose 210 H Lactic Acid Calcium 9.3 Phosphorus 1.8 L Magnesium 1.4 L Total Bilirubin 2.1 H AST 82 H D ALT 37 Alkaline Phosphatase 359 H Troponin I < 0.0120 Total Protein 7.0 Albumin 4.0 Globulin 3.0 Albumin/Globulin Ratio 1.3 Venous Blood Potassium 2.2 L* Urine Color Yellow Urine Clarity Clear Urine pH 5.0 Ur Specific [place] 1.012 Urine Protein 1+ H Urine Glucose (UA) Normal Urine Ketones Negative Urine Blood 2+ H Urine Nitrate Negative Urine Bilirubin Negative Urine Urobilinogen 4.0 Ur Leukocyte Esterase Neg Urine WBC (Auto) 3 Urine RBC (Auto) 18 H Ur Squamous Epith Cells < 1 Blood Type Antibody Screen 05/08/18 05/09/1805/09/18 21:57 05:29 05:29 WBC 0.1 L* D RBC 2.26 L Hgb 7.2 L Hct 20.0 L MCV 88.4 D MCH 31.8 H MCHC 35.9 RDW 18.8 H Plt Count 45 L D MPV 7.2 Neut % (Auto) 12.7 L Lymph % (Auto) 74.3 H [place] % (Auto) 5.1 Eos % (Auto) 7.9 H Baso % (Auto) 0.0 Neut # (Auto) 0.0 L Lymph # (Auto) 0.1 L [place] # (Auto) 0.0 Eos # (Auto) 0.0 Baso # (Auto) 0.0 Total Counted Cancelled Neutrophils % (Manual) Cancelled Band Neutrophils % Cancelled Lymphocytes % (Manual) Cancelled Reactive Lymphs % Cancelled Monocytes % (Manual) Cancelled Eosinophils % (Manual) Cancelled Basophils % (Manual) Cancelled Metamyelocytes % Cancelled Myelocytes % Cancelled Promyelocytes % Cancelled Blast Cells % Cancelled Plasma Cell % (Manual) Cancelled Nucleated RBC % Cancelled Differential Comment Hypersegmented Polys Cancelled Smudge Cells Cancelled Toxic Granulation Cancelled Dohle Bodies Cancelled Kavita Rods Cancelled Platelet Estimate Cancelled Plt Clumps, EDTA Cancelled Large Platelets Cancelled Giant Platelets Cancelled RBC Morphology Cancelled Polychromasia Cancelled Hypochromasia (manual) Cancelled Poikilocytosis (manual Cancelled Basophilic Stippling Cancelled Anisocytosis (manual) Cancelled Microcytosis (manual) Cancelled Macrocytosis (manual) Cancelled Spherocytes Cancelled Sickle Cells Cancelled Target Cells Cancelled Tear Drop Cells Cancelled Ovalocytes Cancelled Stomatocytes Cancelled Helmet Cells Cancelled Bernstein-[place] Bodies Cancelled [place] Cells Cancelled Acanthocytes (Spur) Cancelled Rouleaux Cancelled Schistocytes Cancelled PT INR APTT pO2 90 H VBG pH 7.50 H VBG pCO2 27 L VBG HCO3 24.3 VBG Total CO2 21.9 L VBG O2 Sat (Calc) 97.0 H VBG Base Excess -0.8 L VBG Potassium 2.8 L Glucose 139 H Lactate 3.4 H Crit Value Called To Crit Value Called By Crit Value Read Back Blood Gas Notified Time Sodium 136.0 138 Potassium 3.4 L Chloride 105.0 105 Carbon Dioxide 21 L Anion Gap 15 BUN 18 Creatinine 0.7 L Est GFR ( Amer) > 60 Est GFR (Non-Af Amer) > 60 POC Glucose (mg/dL) Random Glucose 122 H Lactic Acid Calcium 8.1 L Phosphorus 3.1 Magnesium 1.2 L Total Bilirubin 1.7 H AST 57 ALT 39 Alkaline Phosphatase 223 H D Troponin I Total Protein 5.7 L Albumin 2.9 L D Globulin 2.8 Albumin/Globulin Ratio 1.1 Venous Blood Potassium 2.8 L Urine Color Urine Clarity Urine pH Ur Specific [place] Urine Protein Urine Glucose (UA) Urine Ketones Urine Blood Urine Nitrate Urine Bilirubin Urine Urobilinogen Ur Leukocyte Esterase Urine WBC (Auto) Urine RBC (Auto) Ur Squamous Epith Cells Blood Type Antibody Screen 05/09/18 05/09/18 05/09/18 05:29 07:51 11:32 WBC RBC Hgb Hct MCV MCH MCHC RDW Plt Count MPV Neut % (Auto) Lymph % (Auto) [place] % (Auto) Eos % (Auto) Baso % (Auto) Neut # (Auto) Lymph # (Auto) [place] # (Auto) Eos # (Auto) Baso # (Auto) Total Counted Neutrophils % (Manual) Band Neutrophils % Lymphocytes % (Manual) Reactive Lymphs % Monocytes % (Manual) Eosinophils % (Manual) Basophils % (Manual) Metamyelocytes % Myelocytes % Promyelocytes % Blast Cells % Plasma Cell % (Manual) Nucleated RBC % Differential Comment Hypersegmented Polys Smudge Cells Toxic Granulation Dohle Bodies Kavita Rods Platelet Estimate Plt Clumps, EDTA Large Platelets Giant Platelets RBC Morphology Polychromasia Hypochromasia (manual) Poikilocytosis (manual Basophilic Stippling Anisocytosis (manual) Microcytosis (manual) Macrocytosis (manual) Spherocytes Sickle Cells Target Cells Tear Drop Cells Ovalocytes Stomatocytes Helmet Cells Bernstein-[place] Bodies [place] Cells Acanthocytes (Spur) Rouleaux Schistocytes PT INR APTT pO2 VBG pH VBG pCO2 VBG HCO3 VBG Total CO2 VBG O2 Sat (Calc) VBG Base Excess VBG Potassium Glucose Lactate Crit Value Called To Crit Value Called By Crit Value Read Back Blood Gas Notified Time Sodium Potassium Chloride Carbon Dioxide Anion Gap BUN Creatinine Est GFR ( Amer) Est GFR (Non-Af Amer) POC Glucose (mg/dL) 109 154 H Random Glucose Lactic Acid 2.6 H Calcium Phosphorus Magnesium Total Bilirubin AST ALT Alkaline Phosphatase Troponin I Total Protein Albumin Globulin Albumin/Globulin Ratio Venous Blood Potassium Urine Color Urine Clarity Urine pH Ur Specific [place] Urine Protein Urine Glucose (UA) Urine Ketones Urine Blood Urine Nitrate Urine Bilirubin Urine Urobilinogen Ur Leukocyte Esterase Urine WBC (Auto) Urine RBC (Auto) Ur Squamous Epith Cells Blood Type Antibody Screen
--- NOTE | 2018-05-09 17:54 | CP.PCM.PN ---
Subjective - Date & Time of Evaluation Date of Evaluation: 05/09/18 Time of Evaluation: 15:50 - Subjective Subjective: pt clinically same Objective - Vital Signs/Intake and Output Vital Signs (last 24 hours): Temp Pulse Resp BP Pulse Ox 99 F 100 H 21 90/43 L 98 05/09/18 16:00 05/09/18 17:00 05/09/18 17:00 05/09/18 16:57 05/09/18 17:00 Intake and Output: 05/09/18 05/09/18 06:59 18:59 Intake Total 619.0 2647.5 Output Total 1360 400 Balance -741.0 2247.5 - Medications Medications: Current Medications Norepinephrine Bitartrate 4 mg (/ Sodium Chloride) 254 mls @ 15.24 mls/hr IV .[id number] PRN; Protocol; 4 MCG/MIN PRN Reason: TITRATE PER MD ORDER Last Titration: 05/09/18 16:00 Dose: 0 mcg/min, 0 mls/hr Cefepime HCl (Maxipime Iv 2 Gm Premix) 2 gm in 100 mls @ 200 mls/hr IVPB Q8H AWILDA PRN Reason: Protocol Stop: 05/14/18 01:31 Last Admin: 05/09/18 17:30 Dose: 200 mls/hr Vancomycin/Sodium Chloride (Vancomycin 1 Gm/Ns 200 Ml) 1 gm in 200 mls @ 166.6 mls/hr IVPB Q12H AWILDA PRN Reason: Protocol Stop: 05/14/18 02:01 Last Admin: 05/09/18 16:06 Dose: 166.6 mls/hr Sodium Chloride (Sodium Chloride 0.9%) 1,000 mls @ 100 mls/hr IV .Q10H AWILDA Last Admin: 05/09/18 15:11 Dose: 100 mls/hr Tobramycin Sulfate 250 mg/ (Sodium Chloride) 106.25 mls @ 100 mls/hr IV Q24H AWILDA PRN Reason: Protocol Last Admin: 05/09/18 11:15 Dose: 100 mls/hr Micafungin Sodium 100 mg/ (Sodium Chloride) 100 mls @ 100 mls/hr IV Q24H AWILDA PRN Reason: Protocol Last Admin: 05/09/18 11:15 Dose: 100 mls/hr - Labs Labs: 05/09/18 05:29 05/09/18 05:29 PT 17.3 SECONDS (9.7-12.2) H 05/08/18 18:29 INR 1.6 05/08/18 18:29 APTT 24 SECONDS (21-34) 05/08/18 18:29
--- NOTE | 2018-05-09 21:04 | CP.PCM.CON ---
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 The patient has done blood work in my office and told to report to the ER for severe neutropenia. He does admit to fevers and chills. He denies N/V and diarrhea. Past medical history: HTN, GERD, HL, CAD s/p CABG. Past surgical history: Denies. Family history: Denies hematologic and oncologic problems Social histoy: smokes 2 cigs daily x 50 years, former alcohol abuse. Allergies: NKA Review of systems: All remaining review of systems including HEENT, cardiovascular, respiratory, gastrointestinal, genitourinary, musculoskeletal, dermatologic, neurologic, and psychiatric are negative unless mentioned in the HPI. Past Patient History - Infectious Disease Hx of Infectious Diseases: None - Past Medical History & Family History Past Medical History?: Yes - Past Social History Smoking Status: Never Smoked - CARDIAC Hx Hypercholesterolemia: Yes Hx Hypertension: Yes Hx Pacemaker: No - PULMONARY Hx Respiratory Disorders: No - NEUROLOGICAL Hx Neurological Disorder: No Hx Paralysis: No - HEENT Hx HEENT Problems: No - RENAL Hx Chronic Kidney Disease: No - ENDOCRINE/METABOLIC Hx Endocrine Disorders: No - HEMATOLOGICAL/ONCOLOGICAL Hx Anemia: Yes - INTEGUMENTARY Hx Dermatological Problems: No - MUSCULOSKELETAL/RHEUMATOLOGICAL Hx Arthritis: Yes (HX OF B/L HIP PAIN L>R) Hx Falls: No - GASTROINTESTINAL Hx Gastritis: Yes - GENITOURINARY/GYNECOLOGICAL Hx Genitourinary Disorders: No - PSYCHIATRIC Hx Anxiety: Yes Hx Substance Use: No - SURGICAL HISTORY Hx Coronary Artery Bypass Graft: Yes - ANESTHESIA Hx Anesthesia: Yes Hx Anesthesia Reactions: No Hx Malignant Hyperthermia: No Has any member of the family had a problem w/ anesthesia?: No Meds Allergies/Adverse Reactions: Allergies Allergy/AdvReac Type Severity Reaction Status Date / Time No Known Allergies Allergy Verified 03/13/18 11:41 - Medications Medications: Current Medications Norepinephrine Bitartrate 4 mg (/ Sodium Chloride) 254 mls @ 15.24 mls/hr IV .[id number] PRN; Protocol; 4 MCG/MIN PRN Reason: TITRATE PER MD ORDER Last Titration: 05/09/18 16:00 Dose: 0 mcg/min, 0 mls/hr Cefepime HCl (Maxipime Iv 2 Gm Premix) 2 gm in 100 mls @ 200 mls/hr IVPB Q8H AWILDA PRN Reason: Protocol Stop: 05/14/18 01:31 Last Admin: 05/09/18 17:30 Dose: 200 mls/hr Vancomycin/Sodium Chloride (Vancomycin 1 Gm/Ns 200 Ml) 1 gm in 200 mls @ 166.6 mls/hr IVPB Q12H AWILDA PRN Reason: Protocol Stop: 05/14/18 02:01 Last Admin: 05/09/18 16:06 Dose: 166.6 mls/hr Sodium Chloride (Sodium Chloride 0.9%) 1,000 mls @ 100 mls/hr IV .Q10H [facility] Last Admin: 05/09/18 15:11 Dose: 100 mls/hr Tobramycin Sulfate 250 mg/ (Sodium Chloride) 106.25 mls @ 100 mls/hr IV Q24H AWILDA PRN Reason: Protocol Last Admin: 05/09/18 11:15 Dose: 100 mls/hr Micafungin Sodium 100 mg/ (Sodium Chloride) 100 mls @ 100 mls/hr IV Q24H AWILDA PRN Reason: Protocol Last Admin: 05/09/18 11:15 Dose: 100 mls/hr Physical Exam - Head Exam Head Exam: ATRAUMATIC - Eye Exam Eye Exam: Normal appearance - ENT Exam ENT Exam: Mucous Membranes Dry - Respiratory Exam Respiratory Exam: NORMAL BREATHING PATTERN - Cardiovascular Exam Cardiovascular Exam: +S1, +S2 - GI/Abdominal Exam GI & Abdominal Exam: Normal Bowel Sounds - Extremities Exam Extremities exam: Positive for: normal inspection Results - Vital Signs Recent Vital Signs: Last Vital Signs Temp 99.1 F 05/09/18 20:00 Pulse 90 05/09/18 20:00 Resp 21 05/09/18 20:00 BP 97/46 L 05/09/18 19:58 Pulse Ox 97 05/09/18 20:00 - Labs Result Diagrams: 05/11/18 06:40 05/11/18 06:37 Labs: Laboratory Results - last 24 hr 05/08/18 05/08/18 05/09/18 18:29 21:57 05:29 WBC 0.1 L* D RBC 2.26 L Hgb 7.2 L Hct 20.0 L MCV 88.4 D MCH 31.8 H MCHC 35.9 RDW 18.8 H Plt Count 45 L D MPV 7.2 Neut % (Auto) 12.7 L Lymph % (Auto) 74.3 H [place] % (Auto) 5.1 Eos % (Auto) 7.9 H Baso % (Auto) 0.0 Neut # (Auto) 0.0 L Lymph # (Auto) 0.1 L [place] # (Auto) 0.0 Eos # (Auto) 0.0 Baso # (Auto) 0.0 Total Counted Cancelled Neutrophils % (Manual) Cancelled Band Neutrophils % Cancelled Lymphocytes % (Manual) Cancelled Reactive Lymphs % Cancelled Monocytes % (Manual) Cancelled Eosinophils % (Manual) Cancelled Basophils % (Manual) Cancelled Metamyelocytes % Cancelled Myelocytes % Cancelled Promyelocytes % Cancelled Blast Cells % Cancelled Plasma Cell % (Manual) Cancelled Nucleated RBC % Cancelled Hypersegmented Polys Cancelled Smudge Cells Cancelled Toxic Granulation Cancelled Dohle Bodies Cancelled Kavita Rods Cancelled Platelet Estimate Cancelled Plt Clumps, EDTA Cancelled Large Platelets Cancelled Giant Platelets Cancelled RBC Morphology Cancelled Polychromasia Cancelled Hypochromasia (manual) Cancelled Poikilocytosis (manual Cancelled Basophilic Stippling Cancelled Anisocytosis (manual) Cancelled Microcytosis (manual) Cancelled Macrocytosis (manual) Cancelled Spherocytes Cancelled Sickle Cells Cancelled Target Cells Cancelled Tear Drop Cells Cancelled Ovalocytes Cancelled Stomatocytes Cancelled Helmet Cells Cancelled [place] Bodies Cancelled Saud Cells Cancelled Acanthocytes (Spur) Cancelled Rouleaux Cancelled Schistocytes Cancelled pO2 90 H VBG pH 7.50 H VBG pCO2 27 L VBG HCO3 24.3 VBG Total CO2 21.9 L VBG O2 Sat (Calc) 97.0 H VBG Base Excess -0.8 L VBG Potassium 2.8 L Sodium 136.0 Chloride 105.0 Glucose 139 H Lactate 3.4 H Potassium Carbon Dioxide Anion Gap BUN Creatinine Est GFR ( Amer) Est GFR (Non-Af Amer) POC Glucose (mg/dL) Random Glucose Lactic Acid Calcium Phosphorus Magnesium Total Bilirubin AST ALT Alkaline Phosphatase Total Protein Albumin Globulin Albumin/Globulin Ratio Venous Blood Potassium 2.8 L Blood Type A POSITIVE Antibody Screen Negative 05/09/18 05/09/18 05/09/18 05:29 05:29 07:51 WBC RBC Hgb Hct MCV MCH MCHC RDW Plt Count MPV Neut % (Auto) Lymph % (Auto) [place] % (Auto) Eos % (Auto) Baso % (Auto) Neut # (Auto) Lymph # (Auto) [place] # (Auto) Eos # (Auto) Baso # (Auto) Total Counted Neutrophils % (Manual) Band Neutrophils % Lymphocytes % (Manual) Reactive Lymphs % Monocytes % (Manual) Eosinophils % (Manual) Basophils % (Manual) Metamyelocytes % Myelocytes % Promyelocytes % Blast Cells % Plasma Cell % (Manual) Nucleated RBC % Hypersegmented Polys Smudge Cells Toxic Granulation Dohle Bodies Kavita Rods Platelet Estimate Plt Clumps, EDTA Large Platelets Giant Platelets RBC Morphology Polychromasia Hypochromasia (manual) Poikilocytosis (manual Basophilic Stippling Anisocytosis (manual) Microcytosis (manual) Macrocytosis (manual) Spherocytes Sickle Cells Target Cells Tear Drop Cells Ovalocytes Stomatocytes Helmet Cells [place] Bodies Saud Cells Acanthocytes (Spur) Rouleaux Schistocytes pO2 VBG pH VBG pCO2 VBG HCO3 VBG Total CO2 VBG O2 Sat (Calc) VBG Base Excess VBG Potassium Sodium 138 Chloride 105 Glucose Lactate Potassium 3.4 L Carbon Dioxide 21 L Anion Gap 15 BUN 18 Creatinine 0.7 L Est GFR ( Amer) > 60 Est GFR (Non-Af Amer) > 60 POC Glucose (mg/dL) 109 Random Glucose 122 H Lactic Acid 2.6 H Calcium 8.1 L Phosphorus 3.1 Magnesium 1.2 L Total Bilirubin 1.7 H AST 57 ALT 39 Alkaline Phosphatase 223 H D Total Protein 5.7 L Albumin 2.9 L D Globulin 2.8 Albumin/Globulin Ratio 1.1 Venous Blood Potassium Blood Type Antibody Screen 05/09/18 11:32 WBC RBC Hgb Hct MCV MCH MCHC RDW Plt Count MPV Neut % (Auto) Lymph % (Auto) [place] % (Auto) Eos % (Auto) Baso % (Auto) Neut # (Auto) Lymph # (Auto) [place] # (Auto) Eos # (Auto) Baso # (Auto) Total Counted Neutrophils % (Manual) Band Neutrophils % Lymphocytes % (Manual) Reactive Lymphs % Monocytes % (Manual) Eosinophils % (Manual) Basophils % (Manual) Metamyelocytes % Myelocytes % Promyelocytes % Blast Cells % Plasma Cell % (Manual) Nucleated RBC % Hypersegmented Polys Smudge Cells Toxic Granulation Dohle Bodies Kavita Rods Platelet Estimate Plt Clumps, EDTA Large Platelets Giant Platelets RBC Morphology Polychromasia Hypochromasia (manual) Poikilocytosis (manual Basophilic Stippling Anisocytosis (manual) Microcytosis (manual) Macrocytosis (manual) Spherocytes Sickle Cells Target Cells Tear Drop Cells Ovalocytes Stomatocytes Helmet Cells [place] Bodies Saud Cells Acanthocytes (Spur) Rouleaux Schistocytes pO2 VBG pH VBG pCO2 VBG HCO3 VBG Total CO2 VBG O2 Sat (Calc) VBG Base Excess VBG Potassium Sodium Chloride Glucose Lactate Potassium Carbon Dioxide Anion Gap BUN Creatinine Est GFR ( Amer) Est GFR (Non-Af Amer) POC Glucose (mg/dL) 154 H Random Glucose Lactic Acid Calcium Phosphorus Magnesium Total Bilirubin AST ALT Alkaline Phosphatase Total Protein Albumin Globulin Albumin/Globulin Ratio Venous Blood Potassium Blood Type Antibody Screen Assessment & Plan (1) Neutropenic fever Assessment and Plan: IV antibiotics per ID will start growth factor support Status: Acute Priority: High (2) Pancytopenia Assessment and Plan: secondary to chemotherapy transfusion/growth factor support Status: Acute (3) Small cell lung cancer Assessment and Plan: stage IV brain, liver, bone metastasis outpatient chemotherapy Thank you for this interesting consult. Status: Acute Priority: High
[2018-05-09] MEDS ORDERED: Potassium Chloride 20 mEq ER Tab PO STA (21:43)
--- NOTE | 2018-05-09 23:03 | CP.PCM.CON ---
History of Present Illness - History of Present Illness History of Present Illness: dictated Past Patient History - Infectious Disease Hx of Infectious Diseases: None - Past Medical History & Family History Past Medical History?: Yes - Past Social History Smoking Status: Never Smoked - CARDIAC Hx Hypercholesterolemia: Yes Hx Hypertension: Yes Hx Pacemaker: No - PULMONARY Hx Respiratory Disorders: No - NEUROLOGICAL Hx Neurological Disorder: No Hx Paralysis: No - HEENT Hx HEENT Problems: No - RENAL Hx Chronic Kidney Disease: No - ENDOCRINE/METABOLIC Hx Endocrine Disorders: No - HEMATOLOGICAL/ONCOLOGICAL Hx Anemia: Yes - INTEGUMENTARY Hx Dermatological Problems: No - MUSCULOSKELETAL/RHEUMATOLOGICAL Hx Arthritis: Yes (HX OF B/L HIP PAIN L>R) Hx Falls: No - GASTROINTESTINAL Hx Gastritis: Yes - GENITOURINARY/GYNECOLOGICAL Hx Genitourinary Disorders: No - PSYCHIATRIC Hx Anxiety: Yes Hx Substance Use: No - SURGICAL HISTORY Hx Coronary Artery Bypass Graft: Yes - ANESTHESIA Hx Anesthesia: Yes Hx Anesthesia Reactions: No Hx Malignant Hyperthermia: No Has any member of the family had a problem w/ anesthesia?: No Meds Allergies/Adverse Reactions: Allergies Allergy/AdvReac Type Severity Reaction Status Date / Time No Known Allergies Allergy Verified 03/13/18 11:41 - Medications Medications: Current Medications Norepinephrine Bitartrate 4 mg (/ Sodium Chloride) 254 mls @ 15.24 mls/hr IV .[id number] PRN; Protocol; 4 MCG/MIN PRN Reason: TITRATE PER MD ORDER Last Titration: 05/09/18 16:00 Dose: 0 mcg/min, 0 mls/hr Cefepime HCl (Maxipime Iv 2 Gm Premix) 2 gm in 100 mls @ 200 mls/hr IVPB Q8H AWILDA PRN Reason: Protocol Stop: 05/14/18 01:31 Last Admin: 05/09/18 17:30 Dose: 200 mls/hr Vancomycin/Sodium Chloride (Vancomycin 1 Gm/Ns 200 Ml) 1 gm in 200 mls @ 166.6 mls/hr IVPB Q12H AWILDA PRN Reason: Protocol Stop: 05/14/18 02:01 Last Admin: 05/09/18 16:06 Dose: 166.6 mls/hr Sodium Chloride (Sodium Chloride 0.9%) 1,000 mls @ 100 mls/hr IV .Q10H AWILDA Last Admin: 05/09/18 22:43 Dose: 100 mls/hr Tobramycin Sulfate 250 mg/ (Sodium Chloride) 106.25 mls @ 100 mls/hr IV Q24H AWILDA PRN Reason: Protocol Last Admin: 05/09/18 11:15 Dose: 100 mls/hr Micafungin Sodium 100 mg/ (Sodium Chloride) 100 mls @ 100 mls/hr IV Q24H AWILDA PRN Reason: Protocol Last Admin: 05/09/18 11:15 Dose: 100 mls/hr Results - Vital Signs Recent Vital Signs: Last Vital Signs Temp 99.1 F 05/09/18 20:00 Pulse 96 H 05/09/18 22:14 Resp 19 05/09/18 22:14 BP 103/51 L 05/09/18 22:14 Pulse Ox 94 L 05/09/18 22:14 - Labs Result Diagrams: 05/09/18 05:29 05/09/18 05:29 Labs: Laboratory Results - last 24 hr 05/08/18 05/09/18 05/09/18 18:29 05:29 05:29 WBC 0.1 L* D RBC 2.26 L Hgb 7.2 L Hct 20.0 L MCV 88.4 D MCH 31.8 H MCHC 35.9 RDW 18.8 H Plt Count 45 L D MPV 7.2 Neut % (Auto) 12.7 L Lymph % (Auto) 74.3 H [place] % (Auto) 5.1 Eos % (Auto) 7.9 H Baso % (Auto) 0.0 Neut # (Auto) 0.0 L Lymph # (Auto) 0.1 L [place] # (Auto) 0.0 Eos # (Auto) 0.0 Baso # (Auto) 0.0 Total Counted Cancelled Neutrophils % (Manual) Cancelled Band Neutrophils % Cancelled Lymphocytes % (Manual) Cancelled Reactive Lymphs % Cancelled Monocytes % (Manual) Cancelled Eosinophils % (Manual) Cancelled Basophils % (Manual) Cancelled Metamyelocytes % Cancelled Myelocytes % Cancelled Promyelocytes % Cancelled Blast Cells % Cancelled Plasma Cell % (Manual) Cancelled Nucleated RBC % Cancelled Hypersegmented Polys Cancelled Smudge Cells Cancelled Toxic Granulation Cancelled Dohle Bodies Cancelled Kavita Rods Cancelled Platelet Estimate Cancelled Plt Clumps, EDTA Cancelled Large Platelets Cancelled Giant Platelets Cancelled RBC Morphology Cancelled Polychromasia Cancelled Hypochromasia (manual) Cancelled Poikilocytosis (manual Cancelled Basophilic Stippling Cancelled Anisocytosis (manual) Cancelled Microcytosis (manual) Cancelled Macrocytosis (manual) Cancelled Spherocytes Cancelled Sickle Cells Cancelled Target Cells Cancelled Tear Drop Cells Cancelled Ovalocytes Cancelled Stomatocytes Cancelled Helmet Cells Cancelled Bernstein-[place]sko Bodies Cancelled [place] Cells Cancelled Acanthocytes (Spur) Cancelled Rouleaux Cancelled Schistocytes Cancelled Sodium 138 Potassium 3.4 L Chloride 105 Carbon Dioxide 21 L Anion Gap 15 BUN 18 Creatinine 0.7 L Est GFR ( Amer) > 60 Est GFR (Non-Af Amer) > 60 POC Glucose (mg/dL) Random Glucose 122 H Lactic Acid Calcium 8.1 L Phosphorus 3.1 Magnesium 1.2 L Total Bilirubin 1.7 H AST 57 ALT 39 Alkaline Phosphatase 223 H D Total Protein 5.7 L Albumin 2.9 L D Globulin 2.8 Albumin/Globulin Ratio 1.1 Blood Type A POSITIVE Antibody Screen Negative 05/09/18 05/09/18 05/09/18 05:29 07:51 11:32 WBC RBC Hgb Hct MCV MCH MCHC RDW Plt Count MPV Neut % (Auto) Lymph % (Auto) [place] % (Auto) Eos % (Auto) Baso % (Auto) Neut # (Auto) Lymph # (Auto) [place] # (Auto) Eos # (Auto) Baso # (Auto) Total Counted Neutrophils % (Manual) Band Neutrophils % Lymphocytes % (Manual) Reactive Lymphs % Monocytes % (Manual) Eosinophils % (Manual) Basophils % (Manual) Metamyelocytes % Myelocytes % Promyelocytes % Blast Cells % Plasma Cell % (Manual) Nucleated RBC % Hypersegmented Polys Smudge Cells Toxic Granulation Dohle Bodies Kavita Rods Platelet Estimate Plt Clumps, EDTA Large Platelets Giant Platelets RBC Morphology Polychromasia Hypochromasia (manual) Poikilocytosis (manual Basophilic Stippling Anisocytosis (manual) Microcytosis (manual) Macrocytosis (manual) Spherocytes Sickle Cells Target Cells Tear Drop Cells Ovalocytes Stomatocytes Helmet Cells Bernstein-Esko Bodies [place] Cells Acanthocytes (Spur) Rouleaux Schistocytes Sodium Potassium Chloride Carbon Dioxide Anion Gap BUN Creatinine Est GFR ( Amer) Est GFR (Non-Af Amer) POC Glucose (mg/dL) 109 154 H Random Glucose Lactic Acid 2.6 H Calcium Phosphorus Magnesium Total Bilirubin AST ALT Alkaline Phosphatase Total Protein Albumin Globulin Albumin/Globulin Ratio Blood Type Antibody Screen
--- NOTE | 2018-05-09 23:46 | CARD ---
APPROVED REPORT Date of service: 05/08/2018 EKG Measurement Heart [id number] <Conclusion> Sinus tachycardia with occasional premature ventricular complexes Nonspecific ST abnormality Abnormal ECG
[2018-05-10] MEDS: Cefepime IV 2 gm in Dextrose 2 GM/100 ML BAG IVPB SCH ×3 (01:11→17:07)
[2018-05-10] MEDS: Vancomycin 1 gm/NS 200 ml 1 GM/200 ML BAG IVPB SCH ×2 (01:11→16:01)
[2018-05-10 06:02] LABS: ARTERIAL BLOOD GAS HCO3 23.8 mmol/L (21-28); ARTERIAL BLOOD GAS O2 SAT 96.8 % (95-98); ARTERIAL BLOOD GAS PCO2 27 mm/Hg (35-45); ARTERIAL BLOOD GAS PH 7.49 (7.35-7.45); ARTERIAL BLOOD GAS PO2 71 mm/Hg (80-100); ARTERIAL BLOOD GAS TCO2 21.4 mmol/L (22-28)
[2018-05-10 06:20] LABS: HEMOGLOBIN 7.2 g/dL (12.0-18.0); MEAN CELL VOLUME 86.4 fL (80.0-94.0); MEAN CORPUSCULAR HEMOGLOBIN 29.9 pg (27.0-31.0); MEAN CORPUSCULAR HGB CONC 34.6 g/dL (33.0-37.0); MEAN PLATELET VOLUME 8.9 fL (7.2-11.7); RBC 2.42 Mil/uL (4.40-5.90); RED CELL DISTRIBUTION WIDTH 18.4 % (11.5-14.5)
[2018-05-10 06:29] LABS: WHITE BLOOD COUNT 0.1 K/uL (4.8-10.8)
[2018-05-10 06:43] LABS: ALBUMIN 2.8 g/dL (3.5-5.0); ALT/SGPT 34 U/L (21-72); AST/SGOT 43 U/L (17-59); BLOOD UREA NITROGEN 12 mg/dL (9-20); CALCIUM 8.2 mg/dl (8.6-10.4); GFR NON-AFRICAN AMERICAN > 60
[2018-05-10] MEDS: Sodium Chloride 0.9% 1,000 ML IV SCH ×3 (08:42→19:19)
[2018-05-10] MEDS: Micafungin 100 MG in Sodium Chloride 0.9% 100 ML IV SCH (08:55)
--- NOTE | 2018-05-10 09:32 | CON ---
Copied To: Apple Rasmussen MD Attending MD: Apple Rasmussen MD DATE: 05/09/2018 INFECTIOUS DISEASE CONSULT REQUESTED BY: Ameena Mccartney MD HISTORY OF PRESENT ILLNESS: This patient is a 62-year-old male. He has cancer, and he has status post radiation, and I have to read Dr. Bae's note because he is involved, but he came in with chills and generalized weakness. He had a temperature of 102. He denies any shortness of breath. Denies any dysphagia. No vomiting, no diarrhea, no abdominal pain, and he does feel weak, was having fevers, and he was having GI problems, but he does not complain of any nausea, vomiting, or diarrhea. He had radiation therapy 4 days ago, comes in with a fever. I am asked to evaluate him. He is in neutropenic precautions now, and he was on vasopressors this morning. I received a call last night that he was admitting with neutropenia, and we put him with Maxipime and vancomycin, and this morning, I still found that his lactate level was high and he was still on vasopressors , so I added further tobramycin as well as Mycamine. PAST MEDICAL HISTORY: Significant for anemia, anxiety, arthritis, gastritis, hypertension, and hyperlipidemia. He has a metastatic lung cancer; status post radiation. PAST SURGICAL HISTORY: He has surgical history of CABG. No history of pacemaker. SOCIAL HISTORY: Significant for alcohol use with no history of substance abuse. REVIEW OF SYSTEMS: Comes in with weakness and fevers and chills, and has no shortness of breath. No nausea, no vomiting, no abdominal pain, no diarrhea, no skin rashes, no neurological weakness. Just feels weak, otherwise generalized weakness. Yesterday, his platelets were just 9000, and his white count was 0.3, so they called me for coverage of antibiotics. He has a femoral and groin line which was placed yesterday. ALLERGIES: HE IS NOT ALLERGIC TO ANY MEDICINE. MEDICATIONS: He is on cefepime 2 gm every 8 hours. He is on micafungin. He was on norepinephrine which is being titrated now. He is on tobramycin, and he is on vancomycin 1 gm every 12 hours. PHYSICAL EXAMINATION: GENERAL: On examination, I find he was alert, awake, speaks only Bangladeshi, was able to give some history, and he was complaining of some pain in the left testicle which did not appear to be inflamed, swollen. No epididymitis noted, and I am not sure what to make out of it. VITAL SIGNS: T-max is 99.1, pulse 95, blood pressure is 103/52, and respirations are 21. HEENT: Head is atraumatic and normocephalic. Pupils are reacting to light. Tongue is moist. NECK: Supple. JVP is flat. Trachea is central. LUNGS: Clear. No crackles or rales. HEART: S1, S2 are regular. ABDOMEN: Soft and nontender. No guarding, no rigidity present. EXTREMITIES: Have no edema, clubbing, or cyanosis. No focal deficits noted. No rash. LABORATORY DATA: Labs show white count today was even further down to 0.1. He is getting the Neupogen or Granulex. White count is 7.2, hematocrit is 20, and platelet count is 45. He received transfusion of platelets as well as 1 packed RBC. His potassium was 2.8 on the venous blood drawing, but his actual one was 3.4, chlorides are 105, CO2 is 21, glucose is 154, and lactic acid was 2.6, was high. UA shows 2+ blood, rbc 18, wbc is 3, and squamous cell is less than 1. There were no ketones. The chest x-ray shows no focal infiltrates. I want to see Dr. Bae's info, if anything which is pending at this time. IMPRESSION AND PLAN: This patient has a metastatic cancer, status post radiation, comes in with severe neutropenia, and he is covered with multiple antibiotics and vasopressor. If he does not improve with white count, furthermore, we will do CAT scans tomorrow to see the etiology of this pancytopenia, to continue support with antibiotics and with fluids, vasopressors, and Neupogen as well as platelets as needed. We will follow. Apple Rasmussen MD
[2018-05-10 09:55] LABS: LYMPH % 77.4 % (20.0-40.0); NEUT % 15.4 % (50.0-75.0)
[2018-05-10 09:56] LABS: EOS % 3.2 % (0.0-4.0); LYMPH # 0.1 K/uL (1.0-4.3)
--- NOTE | 2018-05-10 10:36 | CP.PCM.PN ---
<Cherie Yanes - Last Filed: 05/10/18 16:00> Subjective - Date & Time of Evaluation Date of Evaluation: 05/10/18 Time of Evaluation: 08:00 - Subjective Subjective: Hem/Onc Consult Note: Dr. Bae's Service Patient was seen and examined at bedside in the AM. Patient states he is feeling better than yesterday. He states he does not have much of an appetite. He denies chest pain, difficulty breathing, nausea, vomiting, diarrhea or constipation. Objective - Vital Signs/Intake and Output Vital Signs (last 24 hours): Temp Pulse Resp BP Pulse Ox 97.4 F L 93 H 19 94/70 L 96 05/10/18 08:00 05/10/18 10:00 05/10/18 10:00 05/10/18 09:59 05/10/18 10:00 Intake and Output: 05/10/18 05/10/18 06:59 18:59 Intake Total 1600 540 Output Total 1500 Balance 100 540 - Medications Medications: Current Medications Norepinephrine Bitartrate 4 mg (/ Sodium Chloride) 254 mls @ 15.24 mls/hr IV .[id number] PRN; Protocol; 4 MCG/MIN PRN Reason: TITRATE PER MD ORDER Last Titration: 05/09/18 16:00 Dose: 0 mcg/min, 0 mls/hr Cefepime HCl (Maxipime Iv 2 Gm Premix) 2 gm in 100 mls @ 200 mls/hr IVPB Q8H [facility] PRN Reason: Protocol Stop: 05/14/18 01:31 Last Admin: 05/10/18 08:45 Dose: 200 mls/hr Vancomycin/Sodium Chloride (Vancomycin 1 Gm/Ns 200 Ml) 1 gm in 200 mls @ 166.6 mls/hr IVPB Q12H [facility]IL[facility] PRN Reason: Protocol Stop: 05/14/18 02:01 Last Admin: 05/10/18 01:11 Dose: 166.6 mls/hr Sodium Chloride (Sodium Chloride 0.9%) 1,000 mls @ 100 mls/hr IV .Q10H [facility]IL[facility] Last Admin: 05/10/18 08:42 Dose: Not Given Tobramycin Sulfate 250 mg/ (Sodium Chloride) 106.25 mls @ 100 mls/hr IV Q24H [facility]IL[facility] PRN Reason: Protocol Last Admin: 05/09/18 11:15 Dose: 100 mls/hr Micafungin Sodium 100 mg/ (Sodium Chloride) 100 mls @ 100 mls/hr IV Q24H [facility]IL[facility] PRN Reason: Protocol Last Admin: 05/10/18 08:55 Dose: 100 mls/hr - Labs Labs: 05/10/18 06:00 05/10/18 06:00 PT 17.3 SECONDS (9.7-12.2) H 05/08/18 18:29 INR 1.6 05/08/18 18:29 APTT 24 SECONDS (21-34) 05/08/18 18:29 - Constitutional Appears: No Acute Distress, Chronically Ill - Head Exam Head Exam: ATRAUMATIC, NORMAL INSPECTION - Eye Exam Eye Exam: EOMI, Normal appearance, PERRL Pupil Exam: NORMAL ACCOMODATION - ENT Exam ENT Exam: Mucous Membranes Moist - Respiratory Exam Respiratory Exam: NORMAL BREATHING PATTERN - Cardiovascular Exam Cardiovascular Exam: REGULAR RHYTHM, +S1, +S2 - GI/Abdominal Exam GI & Abdominal Exam: Distended, Soft, Normal Bowel Sounds. absent: Tenderness - Extremities Exam Extremities Exam: Normal Inspection - Neurological Exam Neurological Exam: Alert, Awake, Oriented x3 - Psychiatric Exam Psychiatric exam: Normal Affect Assessment and Plan - Assessment and Plan (Free Text) Assessment: Anemia - H/H 7.220.9 - Patient Transfused 2 units PRBC. - PRBC x2 to be given 05/10/18 Thrombocytopenia - Platelet: 9 --> 45 --> 9 - Platelets administered in the ER 05/08/18 - Platelets to be given 05/10/18 - PT 17.3 (elevated), INR 1.6 Neutropenic - s/p radiation 04/27/18 and chemotherapy 05/07/18 - Metastatic Lung cancer - Urine culture/Blood Culture: Negative - Granix SC daily Case discussed with Dr. Kathia Yanes PGY-2 <Ronal Bae - Last Filed: 05/11/18 13:15> Subjective - Subjective Subjective: Pt seen and examined, agree with residents note. Cont. neutropenic precautions , growth factor/transfusion support, antibiotics. Objective - Vital Signs/Intake and Output Vital Signs (last 24 hours): Temp Pulse Resp BP Pulse Ox 98.9 F 102 H 27 H 114/64 98 05/11/18 12:00 05/11/18 13:00 05/11/18 13:00 05/11/18 13:00 05/11/18 13:00 Intake and Output: 05/11/18 05/11/18 06:59 18:59 Intake Total 2004 97 Output Total 0 425 Balance 155 545 - Medications Medications: Current Medications Acetaminophen (Tylenol 325mg Tab) 650 mg PO Q6 PRN PRN Reason: Fever >100.4 F Last Admin: 05/11/18 04:42 Dose: 650 mg Acyclovir (Zovirax) 400 mg PO BID AWILDA PRN Reason: Protocol Last Admin: 05/11/18 12:59 Dose: 400 mg Fentanyl (Duragesic) 1 patch TD Q72H [facility] Last Admin: 05/10/18 12:26 Dose: 1 patch Norepinephrine Bitartrate 4 mg (/ Sodium Chloride) 254 mls @ 15.24 mls/hr IV .[id number] PRN; Protocol; 4 MCG/MIN PRN Reason: TITRATE PER MD ORDER Last Titration: 05/09/18 16:00 Dose: 0 mcg/min, 0 mls/hr Cefepime HCl (Maxipime Iv 2 Gm Premix) 2 gm in 100 mls @ 200 mls/hr IVPB Q8H [facility] PRN Reason: Protocol Stop: 05/14/18 01:31 Last Admin: 05/11/18 09:02 Dose: 200 mls/hr Vancomycin/Sodium Chloride (Vancomycin 1 Gm/Ns 200 Ml) 1 gm in 200 mls @ 166.6 mls/hr IVPB Q12H [facility]IL[facility] PRN Reason: Protocol Stop: 05/14/18 02:01 Last Admin: 05/11/18 13:00 Dose: 166.6 mls/hr Sodium Chloride (Sodium Chloride 0.9%) 1,000 mls @ 100 mls/hr IV .Q10H [facility]IL[facility] Last Admin: 05/11/18 04:44 Dose: 100 mls/hr Tobramycin Sulfate 250 mg/ (Sodium Chloride) 106.25 mls @ 100 mls/hr IV Q24H [facility]IL[facility] PRN Reason: Protocol Last Admin: 05/11/18 10:06 Dose: 100 mls/hr Micafungin Sodium 100 mg/ (Sodium Chloride) 100 mls @ 100 mls/hr IV Q24H [facility]ILDA PRN Reason: Protocol Last Admin: 05/11/18 09:06 Dose: 100 mls/hr Potassium Chloride (Potassium Chloride 20 Meq/100 Ml) 20 meq in 100 mls @ 50 mls/hr IVPB TID [facility] Stop: 05/11/18 19:59 Last Admin: 05/11/18 13:00 Dose: 50 mls/hr Sucralfate (Carafate Tab) 1 gm PO QID [facility] Last Admin: 05/11/18 12:59 Dose: 1 gm - Labs Labs: 05/11/18 06:40 05/11/18 06:37 PT 17.3 SECONDS (9.7-12.2) H 05/08/18 18:29 INR 1.6 05/08/18 18:29 APTT 24 SECONDS (21-34) 05/08/18 18:29
--- NOTE | 2018-05-10 12:41 | CP.PCM.CON ---
History of Present Illness - History of Present Illness History of Present Illness: Palliative consult requested by Doctor Ahmadi for goals of care discussion Patient is a 62 yo male admitted per suggestions of Doctor Kathia with Temp of 102.0 at home, chills and weakness. In ED patient was Hypotensive with marked Pancytopenia. Central lne inserted and Levophed and IVF started. In antibiotics started as well. WBC 0.1 on admissin, Hb 7.2. patient is post PRBCs transfusion , Hb remains the same. reverse isolation in place. PMH: prostate cancer with mets to brain, lungs and bones, S/P radiation, last was 4 days ago Soc. Hx: , lives with daughter, never smoked, travels to [facility] often, last tip was in December of this year Fam Hx: Brother from same symptoms as patient has, but was never diagnosed with cancer Review of Systems - Constitutional Constitutional: Weakness - EENT Eyes: absent: As Per HPI, Blind Spots, Blurred Vision, Change in Vision, Decreased Night Vision, Diplopia, Discharge, Dry Eye, Exophthalmos, Floaters, Irritation, Itchy Eyes, Loss of Peripheral Vision, Pain, Photophobia, Requires Corrective Lenses, Sees Flashes, Spots in Vision, Tunnel Vision, Other Visual Disturbances, Loss of Vision, Other Ears: absent: As Per HPI, Decreased Hearing, Ear Discharge, Ear Pain, Tinnitus, Abnormal Hearing, Disequilibrium, Dizziness, Other Nose/Mouth/Throat: absent: As Per HPI, Epistaxis, Nasal Congestion, Nasal Discharge, Nasal Obstruction, Nasal Trauma, Nose Pain, Post Nasal Drip, Sinus Pain, Sinus Pressure, Bleeding Gums, Change in Voice, Dental Pain, Dry Mouth, Dysphagia, Halitosis, Hoarsness, Lip Swelling, Mouth Lesions, Mouth Pain, Odynophagia, Sore Throat, Throat Swelling, Tongue Swelling, Facial Pain, Neck Pain, Neck Mass, Other - Cardiovascular Cardiovascular: absent: As Per HPI, Acrocyanosis, Chest Pain, Chest Pain at Rest , Chest Pain with Activity, Claudication, Diaphoresis, Dyspnea, Dyspnea on Exertion, Edema, Irregular Heart Rhythm, Pain Radiating to Arm/Neck/Jaw, Leg Edema, Leg Ulcers, Lightheadedness, Orthopnea, Palpitations, Paroxysmal Nocturnal Dyspnea, Pedal Edema, Radiating Pain, Rapid Heart Rate, Slow Heart Rate, Syncope, Other - Respiratory Respiratory: absent: As Per HPI, Cough, Dyspnea, Hemoptysis, Dyspnea on Exertion , Wheezing, Snoring, Stridor, Pain on Inspiration, Chest Congestion, Excessive Mucous Production, Change in Mucous Color, Pain with Coughing, Other - Gastrointestinal Gastrointestinal: Abdominal Pain - Genitourinary Genitourinary: absent: As Per HPI, Change in Urinary Stream, Difficulty Urinating, Dysuria, Flank Pain, Hematuria, Pyuria, Nocturia, Urinary Incontinence, Urinary Frequency, Urinary Hesitance, Urinary Urgency, Voiding Freq/Small Amts, Freq UTI, Hx Renal/Bladder Calculi, Hx /Renal Surgery, Bladder Distension, Other - Musculoskeletal Musculoskeletal: Muscle Weakness - Integumentary Integumentary: Change in Hair - Neurological Neurological: absent: As Per HPI, Abnormal Gait, Abnormal Hearing, Abnormal Movements, Abnormal Speech, Behavioral Changes, Burning Sensations, Confusion, Convulsions, Disequilibrium, Dizziness, Numbness, Focal Weakness, Frequent Falls , Headaches, Lack of Coordination, Loss of Vision, Memory Loss, Paresthesias, Radicular Pain, Restless Legs, Sensory Deficit, Syncope, Tingling, Tremor, Vertigo, Weakness, Other Visual Disturbances, Other - Psychiatric Psychiatric: absent: As Per HPI, Abnormal Sleep Pattern, Anhedonia, Anxiety, Auditory Hallucinations, Behavioral Changes, Change in Appetite, Change in Libido, Confusion, Depression, Difficulty Concentrating, Hallucinations, Homicidal Ideation, Hopelessness, Irritability, Memory Loss, Mood Swings, Panic Attacks, Paranoia, Suicidal Ideation, Visual Hallucinations, Tactile Hallucinations, Other - Endocrine Endocrine: absent: As Per HPI, Change in Body Appearance, Change in Libido, Cold Intolorance, Deepening of Voice, Excessive Sweating, Fatigue, Flushing, Heat Intolorance, Increase in Ring/Shoe/Hat Size, Palpitations, Polydipsia, Polyphagia, Polyuria, Other - Hematologic/Lymphatic Hematologic: Easy Bleeding Past Patient History - Infectious Disease Hx of Infectious Diseases: None - Past Medical History & Family History Past Medical History?: Yes - Past Social History Smoking Status: Never Smoked - CARDIAC Hx Hypercholesterolemia: Yes Hx Hypertension: Yes Hx Pacemaker: No - PULMONARY Hx Respiratory Disorders: No - NEUROLOGICAL Hx Neurological Disorder: No Hx Paralysis: No - HEENT Hx HEENT Problems: No - RENAL Hx Chronic Kidney Disease: No - ENDOCRINE/METABOLIC Hx Endocrine Disorders: No - HEMATOLOGICAL/ONCOLOGICAL Hx Anemia: Yes - INTEGUMENTARY Hx Dermatological Problems: No - MUSCULOSKELETAL/RHEUMATOLOGICAL Hx Arthritis: Yes (HX OF B/L HIP PAIN L>R) Hx Falls: No - GASTROINTESTINAL Hx Gastritis: Yes - GENITOURINARY/GYNECOLOGICAL Hx Genitourinary Disorders: No - PSYCHIATRIC Hx Anxiety: Yes Hx Substance Use: No - SURGICAL HISTORY Hx Coronary Artery Bypass Graft: Yes - ANESTHESIA Hx Anesthesia: Yes Hx Anesthesia Reactions: No Hx Malignant Hyperthermia: No Has any member of the family had a problem w/ anesthesia?: No Meds Allergies/Adverse Reactions: Allergies Allergy/AdvReac Type Severity Reaction Status Date / Time No Known Allergies Allergy Verified 03/13/18 11:41 - Medications Medications: Current Medications Fentanyl (Duragesic) 1 patch TD Q72H [facility] Last Admin: 05/10/18 12:26 Dose: 1 patch Norepinephrine Bitartrate 4 mg (/ Sodium Chloride) 254 mls @ 15.24 mls/hr IV .[id number] PRN; Protocol; 4 MCG/MIN PRN Reason: TITRATE PER MD ORDER Last Titration: 05/09/18 16:00 Dose: 0 mcg/min, 0 mls/hr Cefepime HCl (Maxipime Iv 2 Gm Premix) 2 gm in 100 mls @ 200 mls/hr IVPB Q8H [facility]ILDA PRN Reason: Protocol Stop: 05/14/18 01:31 Last Admin: 05/10/18 08:45 Dose: 200 mls/hr Vancomycin/Sodium Chloride (Vancomycin 1 Gm/Ns 200 Ml) 1 gm in 200 mls @ 166.6 mls/hr IVPB Q12H [facility]IL[facility] PRN Reason: Protocol Stop: 05/14/18 02:01 Last Admin: 05/10/18 01:11 Dose: 166.6 mls/hr Sodium Chloride (Sodium Chloride 0.9%) 1,000 mls @ 100 mls/hr IV .Q10H AWILDA Last Admin: 05/10/18 08:42 Dose: Not Given Tobramycin Sulfate 250 mg/ (Sodium Chloride) 106.25 mls @ 100 mls/hr IV Q24H AWILDA PRN Reason: Protocol Last Admin: 05/10/18 11:14 Dose: 100 mls/hr Micafungin Sodium 100 mg/ (Sodium Chloride) 100 mls @ 100 mls/hr IV Q24H AWILDA PRN Reason: Protocol Last Admin: 05/10/18 08:55 Dose: 100 mls/hr Physical Exam - Constitutional Appears: No Acute Distress, Chronically Ill - Head Exam Head Exam: ATRAUMATIC, NORMAL INSPECTION, NORMOCEPHALIC - Eye Exam Eye Exam: EOMI, Normal appearance, PERRL Pupil Exam: NORMAL ACCOMODATION, PERRL - ENT Exam ENT Exam: Mucous Membranes Moist, Normal Exam - Neck Exam Neck exam: Positive for: Normal Inspection - Respiratory Exam Respiratory Exam: Decreased Breath Sounds, NORMAL BREATHING PATTERN - Cardiovascular Exam Cardiovascular Exam: Tachycardia - GI/Abdominal Exam GI & Abdominal Exam: Diminished Bowel Sounds, Soft - Rectal Exam Rectal Exam: Deferred - Exam Exam: NORMAL INSPECTION - Extremities Exam Extremities exam: Positive for: pedal edema - Back Exam Back exam: NORMAL INSPECTION - Neurological Exam Neurological exam: Alert, Oriented x3 - Psychiatric Exam Psychiatric exam: Normal Affect, Normal Mood - Skin Skin Exam: Pallor Results - Vital Signs Recent Vital Signs: Last Vital Signs Temp 97.4 F L 05/10/18 08:00 Pulse 94 H 05/10/18 11:00 Resp 26 H 05/10/18 11:00 BP 98/58 L 05/10/18 10:59 Pulse Ox 99 05/10/18 11:00 - Labs Result Diagrams: 05/10/18 06:00 05/10/18 06:00 Labs: Laboratory Results - last 24 hr 05/08/18 05/10/18 05/10/18 18:29 05:18 06:00 WBC 0.1 L* RBC 2.42 L Hgb 7.2 L Hct 20.9 L MCV 86.4 D MCH 29.9 MCHC 34.6 RDW 18.4 H Plt Count 12 L* D MPV 8.9 Neut % (Auto) 15.4 L Lymph % (Auto) 77.4 H [place] % (Auto) 4.0 Eos % (Auto) 3.2 Baso % (Auto) 0.0 Neut # (Auto) 0.0 L Lymph # (Auto) 0.1 L [place] # (Auto) 0.0 Eos # (Auto) 0.0 Baso # (Auto) 0.0 Total Counted Cancelled Neutrophils % (Manual) Cancelled Band Neutrophils % Cancelled Lymphocytes % (Manual) Cancelled Reactive Lymphs % Cancelled Monocytes % (Manual) Cancelled Eosinophils % (Manual) Cancelled Basophils % (Manual) Cancelled Metamyelocytes % Cancelled Myelocytes % Cancelled Promyelocytes % Cancelled Blast Cells % Cancelled Plasma Cell % (Manual) Cancelled Nucleated RBC % Cancelled Hypersegmented Polys Cancelled Smudge Cells Cancelled Toxic Granulation Cancelled Dohle Bodies Cancelled Kavita Rods Cancelled Platelet Estimate Cancelled Plt Clumps, EDTA Cancelled Large Platelets Cancelled Giant Platelets Cancelled RBC Morphology Cancelled Polychromasia Cancelled Hypochromasia (manual) Cancelled Poikilocytosis (manual Cancelled Basophilic Stippling Cancelled Anisocytosis (manual) Cancelled Microcytosis (manual) Cancelled Macrocytosis (manual) Cancelled Spherocytes Cancelled Sickle Cells Cancelled Target Cells Cancelled Tear Drop Cells Cancelled Ovalocytes Cancelled Stomatocytes Cancelled Helmet Cells Cancelled Bernstein-Vona Bodies Cancelled Bedrock Cells Cancelled Acanthocytes (Spur) Cancelled Rouleaux Cancelled Schistocytes Cancelled Puncture Site Rb pCO2 27 L pO2 71 L HCO3 23.8 ABG pH 7.49 H ABG Total CO2 21.4 L ABG O2 Saturation 96.8 ABG Base Excess -1.4 Víctor Test Na ABG Potassium 2.9 L A-a O2 Difference 45.0 Respiratory Index 0.6 Sodium 135.0 Chloride 108.0 H Glucose 88 Lactate 0.8 Vent Mode Room air FiO2 21.0 Potassium Carbon Dioxide Anion Gap BUN Creatinine Est GFR ( Amer) Est GFR (Non-Af Amer) Random Glucose Calcium Phosphorus Magnesium Total Bilirubin AST ALT Alkaline Phosphatase Total Protein Albumin Globulin Albumin/Globulin Ratio Arterial Blood Potassium 2.9 L Stool Occult Blood Blood Type A POSITIVE Antibody Screen Negative 05/10/18 05/10/18 06:00 09:43 WBC RBC Hgb Hct MCV MCH MCHC RDW Plt Count MPV Neut % (Auto) Lymph % (Auto) [place] % (Auto) Eos % (Auto) Baso % (Auto) Neut # (Auto) Lymph # (Auto) [place] # (Auto) Eos # (Auto) Baso # (Auto) Total Counted Neutrophils % (Manual) Band Neutrophils % Lymphocytes % (Manual) Reactive Lymphs % Monocytes % (Manual) Eosinophils % (Manual) Basophils % (Manual) Metamyelocytes % Myelocytes % Promyelocytes % Blast Cells % Plasma Cell % (Manual) Nucleated RBC % Hypersegmented Polys Smudge Cells Toxic Granulation Dohle Bodies Kavita Rods Platelet Estimate Plt Clumps, EDTA Large Platelets Giant Platelets RBC Morphology Polychromasia Hypochromasia (manual) Poikilocytosis (manual Basophilic Stippling Anisocytosis (manual) Microcytosis (manual) Macrocytosis (manual) Spherocytes Sickle Cells Target Cells Tear Drop Cells Ovalocytes Stomatocytes Helmet Cells Bernstein-Vona Bodies Bedrock Cells Acanthocytes (Spur) Rouleaux Schistocytes Puncture Site pCO2 pO2 HCO3 ABG pH ABG Total CO2 ABG O2 Saturation ABG Base Excess Víctor Test ABG Potassium A-a O2 Difference Respiratory Index Sodium 136 Chloride 105 Glucose Lactate Vent Mode FiO2 Potassium 3.1 L Carbon Dioxide 21 L Anion Gap 13 BUN 12 Creatinine 0.6 L Est GFR ( Amer) > 60 Est GFR (Non-Af Amer) > 60 Random Glucose 113 H Calcium 8.2 L Phosphorus 2.0 L Magnesium 1.6 Total Bilirubin 1.9 H AST 43 ALT 34 Alkaline Phosphatase 227 H Total Protein 5.6 L Albumin 2.8 L Globulin 2.8 Albumin/Globulin Ratio 1.0 Arterial Blood Potassium Stool Occult Blood Positive H Blood Type Antibody Screen Assessment & Plan - Assessment and Plan (Free Text) Assessment: Palliative consult FULL CODE, there is no advance directive on chart, PPS 30% reviewed Medical records, all diagnostic studies, examined patient in the bed Patient looks chronically ill, skin and sclera pale, hair loss post chemo. Alert , oriented, fallows commends.Patient denies acute symptoms, even pain. Appetite is poor. BP 98/58 on Levophed IV, HR 94, RR 26. WBC 0.1, Hb 7.2, Platelets dropped from 45 to 12.0 Family meeting held attended by Patient's two daughters and granddaughter. I met with daughter Alma 2-3- times so far in the past discussing goals of care. Every time family was demonstrating strong hope in recovery. At today's meeting I reviewed patient's clinical condition and offered my concerns regarding low WBC and low Hb. I also reviewed statistical data reflecting this patient's diagnsis and prognosis. Family stated understanding. Daughter Trung mentioned that her father was receiving Eupogen inj by Doctor Bae and wanted to know what is Doctor Bae's plan. I spoke to Doctor Bae over the phone in presence of the family.He said that he would continue Eupogene inj or constitution for it , and if patient gets more stable hewould continue chemo Tx with him. I shared this with family what made them very happy. Code status discussed in length. I offered my impression that CPR or MV would not be beneficial for patient if comes to that point given his terminal diagnosis. Family was divided in deciding on DNR/DNI, because daughter Alma said that patient had told her in the past that he would want all aggressive interventions to support life. Further, family anted to know if patient could travel to [facility]. My impresson was that patient as too weak and traveling would not be safe, but advised them to wait and see how patient does before decision made. My discussion with family was shared with Nursing Staff and Medical team on rounds. Impression * Terminally ill male with wide spread metastatic disease * Pancytopenia * Thromocytopenia * Anemia * Poor appetite * Patient and family are very yazidism and hoping for a miracle Suggestions * Reversible isolation * Eupogen inj as per Doctor Bae * FFP transfusion * PRBCs transfusion * Offer food of choice * FULL CODE * Pastoral visit for spiritual support Palliative care will be present as needed for this patient and family if goals of care have changed. Advance planing time 55 min
--- NOTE | 2018-05-10 18:31 | CP.PCM.PN ---
Subjective - Date & Time of Evaluation Date of Evaluation: 05/10/18 Objective - Vital Signs/Intake and Output Vital Signs (last 24 hours): Temp Pulse Resp BP Pulse Ox 100.2 F H 97 H 25 H 126/66 97 05/10/18 17:41 05/10/18 17:41 05/10/18 17:41 05/10/18 17:41 05/10/18 16:00 Intake and Output: 05/10/18 05/10/18 06:59 18:59 Intake Total 1600 2245 Output Total 1500 300 Balance 100 1945 - Medications Medications: Current Medications Acetaminophen (Tylenol 325mg Tab) 650 mg PO Q6 PRN PRN Reason: Fever >100.4 F Last Admin: 05/10/18 17:05 Dose: 650 mg Fentanyl (Duragesic) 1 patch TD Q72H [facility] Last Admin: 05/10/18 12:26 Dose: 1 patch Norepinephrine Bitartrate 4 mg (/ Sodium Chloride) 254 mls @ 15.24 mls/hr IV .[id number] PRN; Protocol; 4 MCG/MIN PRN Reason: TITRATE PER MD ORDER Last Titration: 05/09/18 16:00 Dose: 0 mcg/min, 0 mls/hr Cefepime HCl (Maxipime Iv 2 Gm Premix) 2 gm in 100 mls @ 200 mls/hr IVPB Q8H [facility]IL[facility] PRN Reason: Protocol Stop: 05/14/18 01:31 Last Admin: 05/10/18 17:07 Dose: 200 mls/hr Vancomycin/Sodium Chloride (Vancomycin 1 Gm/Ns 200 Ml) 1 gm in 200 mls @ 166.6 mls/hr IVPB Q12H [facility]IL[facility] PRN Reason: Protocol Stop: 05/14/18 02:01 Last Admin: 05/10/18 16:01 Dose: 166.6 mls/hr Sodium Chloride (Sodium Chloride 0.9%) 1,000 mls @ 100 mls/hr IV .Q10H [facility]IL[facility] Last Admin: 05/10/18 16:00 Dose: 100 mls/hr Tobramycin Sulfate 250 mg/ (Sodium Chloride) 106.25 mls @ 100 mls/hr IV Q24H AWILDA PRN Reason: Protocol Last Admin: 05/10/18 11:14 Dose: 100 mls/hr Micafungin Sodium 100 mg/ (Sodium Chloride) 100 mls @ 100 mls/hr IV Q24H AWILDA PRN Reason: Protocol Last Admin: 05/10/18 08:55 Dose: 100 mls/hr - Labs Labs: 05/10/18 06:00 05/10/18 06:00 PT 17.3 SECONDS (9.7-12.2) H 05/08/18 18:29 INR 1.6 05/08/18 18:29 APTT 24 SECONDS (21-34) 05/08/18 18:29
--- NOTE | 2018-05-10 19:44 | CP.PCM.PN ---
Subjective - Date & Time of Evaluation Date of Evaluation: 05/10/18 Time of Evaluation: 15:00 - Subjective Subjective: dictated Objective - Vital Signs/Intake and Output Vital Signs (last 24 hours): Temp Pulse Resp BP Pulse Ox 99.2 F 88 20 110/57 L 98 05/10/18 18:55 05/10/18 19:14 05/10/18 19:14 05/10/18 19:14 05/10/18 19:14 Intake and Output: 05/10/18 05/11/18 18:59 06:59 Intake Total 3102 180 Output Total 300 Balance 2802 180 - Medications Medications: Current Medications Acetaminophen (Tylenol 325mg Tab) 650 mg PO Q6 PRN PRN Reason: Fever >100.4 F Last Admin: 05/10/18 17:05 Dose: 650 mg Fentanyl (Duragesic) 1 patch TD Q[facility]H [facility] Last Admin: 05/10/18 12:26 Dose: 1 patch Norepinephrine Bitartrate 4 mg (/ Sodium Chloride) 254 mls @ 15.24 mls/hr IV .[id number] PRN; Protocol; 4 MCG/MIN PRN Reason: TITRATE PER MD ORDER Last Titration: 05/09/18 16:00 Dose: 0 mcg/min, 0 mls/hr Cefepime HCl (Maxipime Iv 2 Gm Premix) 2 gm in 100 mls @ 200 mls/hr IVPB Q8H [facility] PRN Reason: Protocol Stop: 05/14/18 01:31 Last Admin: 05/10/18 17:07 Dose: 200 mls/hr Vancomycin/Sodium Chloride (Vancomycin 1 Gm/Ns 200 Ml) 1 gm in 200 mls @ 166.6 mls/hr IVPB Q12H [facility] PRN Reason: Protocol Stop: 05/14/18 02:01 Last Admin: 05/10/18 16:01 Dose: 166.6 mls/hr Sodium Chloride (Sodium Chloride 0.9%) 1,000 mls @ 100 mls/hr IV .Q10H [facility] Last Admin: 05/10/18 19:19 Dose: Not Given Tobramycin Sulfate 250 mg/ (Sodium Chloride) 106.25 mls @ 100 mls/hr IV Q24H [facility] PRN Reason: Protocol Last Admin: 05/10/18 11:14 Dose: 100 mls/hr Micafungin Sodium 100 mg/ (Sodium Chloride) 100 mls @ 100 mls/hr IV Q24H [facility] PRN Reason: Protocol Last Admin: 05/10/18 08:55 Dose: 100 mls/hr - Labs Labs: 05/10/18 06:00 05/10/18 06:00 PT 17.3 SECONDS (9.7-12.2) H 05/08/18 18:29 INR 1.6 05/08/18 18:29 APTT 24 SECONDS (21-34) 05/08/18 18:29
--- NOTE | 2018-05-10 19:57 | CP.CCUPN ---
CCU Subjective - Physician Review Subjective (Free Text): 05/10/18 20:32 The Patient was seen and examined at the bedside, Medical records reviewed, and management issues were discussed and formulated with the house staff. I have reviewed all the relevant clinical, laboratory, hemodynamic, radiographic data and medications Events reviewed Mr Patel is a 62 Years old Male with PMHx of HTN, Hypercholesterolemia, Hyperlipidemia, Anemia, Anxiety, Arthritis (HX OF B/L HIP PAIN L>R), Gastritis, and metastatic small cell lung CA (mets to pancreas, bone, brain, lung, and liver) s/p Cemo and radiation (last received 4 days ago) Who presents to the ED with complaints of chills, generalized weakness and fever at home was 102. He denies any associated SOB, vomiting, diarrhea, abdominal pain, motor weakness , rash, or numbness. In The ER he was hypotensive, central line placed and was started on vasopressors with Levophed Labs significant for pancytopenia, patient is receiving iU packed RBC and will get one U of Platelts as well Pt placed on neutropenic precaution and getting admitted to the ICU for septic shock Currently afebrile, Clinically, hemodynamically improving Afebrile, NSR on the monitor CCU Objective - Vital Signs / Intake & Output Vital Signs (Last 4 hours): Vital Signs Temp Pulse Resp BP Pulse Ox 05/10/18 19:14 88 20 110/57 L 98 05/10/18 19:10 99.3 F 87 22 110/57 L 05/10/18 19:00 95 H 24 97 05/10/18 18:59 93 H 24 113/59 L 96 05/10/18 18:55 99.2 F 97 H 22 110/67 05/10/18 18:41 92 H 21 114/57 L 97 05/10/18 18:40 99.7 F H 93 H 20 114/57 L 05/10/18 18:26 93 H 21 116/60 97 05/10/18 18:11 99.7 F H 97 H 22 116/60 05/10/18 18:00 99 H 19 96 05/10/18 17:56 105 H 20 120/67 96 05/10/18 17:42 97 H 25 H 126/66 97 05/10/18 17:41 100.2 F H 97 H 25 H 126/66 05/10/18 17:26 100.2 F H 96 H 26 H 122/67 98 05/10/18 17:11 100.4 F H 95 H 22 119/68 05/10/18 17:00 99 H 17 97 05/10/18 16:56 96 H 25 H 119/68 98 05/10/18 16:45 101.1 F H 97 H 24 119/63 05/10/18 16:35 99 H 23 119/63 97 05/10/18 16:26 98 H 22 125/68 96 05/10/18 16:00 99.8 F H 100 H 23 96 Intake and Output (Last 8hrs): Intake & Output 05/10/18 05/10/18 05/10/18 06:59 14:59 22:59 Intake Total 1200 1440 1842 Output Total 1000 300 Balance 200 1440 1542 Weight 122 lb Intake: Intake, IV Amount 1200 1080 1121 RIGHT FEMORAL MEDIAL PORT 300 280 521 right femoral proximal 900 800 600 port Oral 360 200 Blood Product 0 521 Apheresis Plts Acda Lr 196 Irr 3rd Unit [id number] Red Blood Cells Cpd As1 0 325 Lr Unit [id number] Red Blood Cells Cpd As1 0 Lr Unit [id number] Output: Urine 1000 300 Urine, Voided 1000 300 Other: # Voids Urine, Voided 0 # Bowel Movements 1 0 - Physical Exam Head: Positive for: Atraumatic, Normocephalic. Negative for: Tenderness, Contusion Pupils: Positive for: PERRL. Negative for: Sluggish, Non-Reactive Extroacular Muscles: Positive for: EOMI. Negative for: Gaze Palsy, Entrapment Conjunctiva: Positive for: Normal. Negative for: Injected, Icteric Ears: Positive for: Normal, NORMAL TM, Normal Canal, Other (lot of Wax). Negative for: Erythema, TM Bulging, Fluid, TM Perf Mouth: Positive for: Dry Nose (Internal): Positive for: Normal Inspection Neck: Positive for: Normal Range of Motion, Trachea Midline. Negative for: Meningeal Signs, MIDLINE TENDERNESS, Paraspinal Tenderness, JVD, Lymphadenopathy , Bruit, Other Respiratory/Chest: Positive for: Decreased Breath Sounds, Rhonchi. Negative for : Clear to Auscultation, Respiratory Distress, Accessory Muscle Use, Wheezes, Rales Cardiovascular: Positive for: Regular Rate and Rhythm, Normal S1, S2, Peripheal Pulses Present. Negative for: Irregular Rhythm Abdomen: Positive for: Normal Bowel Sounds. Negative for: Tenderness, Distention, Peritoneal Signs, Rebound, Guarding Upper Extremity: Positive for: Normal Inspection, Capillary Refill < 2s. Negative for: Cyanosis, Edema, Normal ROM Lower Extremity: Positive for: Normal Inspection, NORMAL PULSES. Negative for: Edema, CALF TENDERNESS Neurological: Positive for: GCS=15, CN II-XII Intact, Speech Normal, Motor Func Grossly Intact, Normal Sensory Function Skin: Positive for: Warm, Dry, Normal Color. Negative for: Rashes, Diaphoretic , Erythematous, Laceration Psychiatric: Positive for: Alert, Oriented x 3 - Medications Active Medications: Active Medications Generic Name Dose Route Start Last Admin Trade Name Freq PRN Reason Stop Dose Admin Acetaminophen 650 mg 05/10/18 16:45 05/10/18 17:05 Tylenol 325mg Tab PO 650 mg Q6 PRN Administration Fever >100.4 F Fentanyl 1 patch 05/10/18 12:15 05/10/18 12:26 Duragesic TD 1 patch Q72H AWILDA Administration Norepinephrine Bitartrate 4 mg 254 mls @ 15.24 mls/hr 05/09/18 00:05 16:00 / Sodium Chloride IV 0 mcg/min .[id number] PRN 0 mls/hr TITRATE PER MD ORDER Titration Protocol 4 MCG/MIN Cefepime HCl 2 gm in 100 mls @ 200 mls/hr 05/09/18 01:30 05/10/18 17:07 Maxipime Iv 2 Gm Premix IVPB 05/14/18 01:31 200 mls/hr Q8H AWILDA Administration Protocol Vancomycin/Sodium Chloride 1 gm in 200 mls @ 166.6 mls/hr 05/09/18 02:00 16:01 Vancomycin 1 Gm/Ns 200 Ml IVPB 05/14/18 02:01 166.6 mls/hr Q12H AWILDA Administration Protocol Sodium Chloride 1,000 mls @ 100 mls/hr 05/09/18 02:30 05/10/18 19:19 Sodium Chloride 0.9% IV Not Given .Q10H AWILDA Tobramycin Sulfate 250 mg/ 106.25 mls @ 100 mls/hr 05/09/18 11:00 05/10/18 11 :14 Sodium Chloride IV 100 mls/hr Q24H AWILDA Administration Protocol Micafungin Sodium 100 mg/ 100 mls @ 100 mls/hr 05/09/18 09:45 05/10/18 08:55 Sodium Chloride IV 100 mls/hr Q24H AWILDA Administration Protocol - Patient Studies Lab Studies: Microbiology Studies 05/09/18 09:36 MRSA Culture (Admit) - Final Nose MRSA NOT DETECTED 05/08/18 19:00 Blood Culture - Preliminary Blood NO GROWTH AFTER 24 HOURS 05/08/18 18:45 Blood Culture - Preliminary Blood NO GROWTH AFTER 24 HOURS 05/08/18 19:48 Urine Culture - Final Urine No Growth (<1,000 CFU/ML) Lab Studies 05/10/18 05/10/18 05/10/18 Range/Units 09:43 06:00 06:00 WBC 0.1 L* (4.8-10.8) K/uL RBC 2.42 L (4.40-5.90) Mil/uL Hgb 7.2 L (12.0-18.0) g/dL Hct 20.9 L (35.0-51.0) % MCV 86.4 D (80.0-94.0) fL MCH 29.9 (27.0-31.0) pg MCHC 34.6 (33.0-37.0) g/dL RDW 18.4 H (11.5-14.5) % Plt Count 12 L* D (130-400) K/uL MPV 8.9 (7.2-11.7) fL Neut % (Auto) 15.4 L (50.0-75.0) % Lymph % (Auto) 77.4 H (20.0-40.0) % [place] % (Auto) 4.0 (0.0-10.0) % Eos % (Auto) 3.2 (0.0-4.0) % Baso % (Auto) 0.0 (0.0-2.0) % Neut # (Auto) 0.0 L (1.8-7.0) K/uL Lymph # (Auto) 0.1 L (1.0-4.3) K/uL [place] # (Auto) 0.0 (0.0-0.8) K/uL Eos # (Auto) 0.0 (0.0-0.7) K/uL Baso # (Auto) 0.0 (0.0-0.2) K/uL Total Counted Cancelled Neutrophils % (Manual) Cancelled Band Neutrophils % Cancelled Lymphocytes % (Manual) Cancelled Reactive Lymphs % Cancelled Monocytes % (Manual) Cancelled Eosinophils % (Manual) Cancelled Basophils % (Manual) Cancelled Metamyelocytes % Cancelled Myelocytes % Cancelled Promyelocytes % Cancelled Blast Cells % Cancelled Plasma Cell % (Manual) Cancelled Nucleated RBC % Cancelled Hypersegmented Polys Cancelled Smudge Cells Cancelled Toxic Granulation Cancelled Dohle Bodies Cancelled Kavita Rods Cancelled Platelet Estimate Cancelled Plt Clumps, EDTA Cancelled Large Platelets Cancelled Giant Platelets Cancelled RBC Morphology Cancelled Polychromasia Cancelled Hypochromasia (manual) Cancelled Poikilocytosis (manual Cancelled Basophilic Stippling Cancelled Anisocytosis (manual) Cancelled Microcytosis (manual) Cancelled Macrocytosis (manual) Cancelled Spherocytes Cancelled Sickle Cells Cancelled Target Cells Cancelled Tear Drop Cells Cancelled Ovalocytes Cancelled Stomatocytes Cancelled Helmet Cells Cancelled Bernstein-[place] Bodies Cancelled Saud Cells Cancelled Acanthocytes (Spur) Cancelled Rouleaux Cancelled Schistocytes Cancelled Puncture Site pCO2 (35-45) mm/Hg pO2 (80-100) mm/Hg HCO3 (21-28) mmol/L ABG pH (7.35-7.45) ABG Total CO2 (22-28) mmol/L ABG O2 Saturation (95-98) % ABG Base Excess (-2.0-3.0) mmol/L Víctor Test ABG Potassium (3.6-5.2) mmol/L A-a O2 Difference mm/Hg Respiratory Index Sodium 136 (132-148) mmol/l Chloride 105 (98-107) mmol/L Glucose (75-110) mg/dl Lactate (0.7-2.1) mmol/L Vent Mode FiO2 % Potassium 3.1 L (3.6-5.2) mmol/L Carbon Dioxide 21 L (22-30) mmol/L Anion Gap 13 (10-20) BUN 12 (9-20) mg/dL Creatinine 0.6 L (0.8-1.5) mg/dL Est GFR ( Amer) > 60 Est GFR (Non-Af Amer) > 60 Random Glucose 113 H (75-110) mg/dL Calcium 8.2 L (8.6-10.4) mg/dl Phosphorus 2.0 L (2.5-4.5) mg/dL Magnesium 1.6 (1.6-2.3) mg/dL Total Bilirubin 1.9 H (0.2-1.3) mg/dL AST 43 (17-59) U/L ALT 34 (21-72) U/L Alkaline Phosphatase 227 H (38-126) U/L Total Protein 5.6 L (6.3-8.3) g/dL Albumin 2.8 L (3.5-5.0) g/dL Globulin 2.8 (2.2-3.9) gm/dL Albumin/Globulin Ratio 1.0 (1.0-2.1) Arterial Blood Potassium (3.6-5.2) mmol/L Stool Occult Blood Positive H (NEGATIVE) Blood Type Antibody Screen 05/10/18 05/08/18 Range/Units 05:18 18:29 WBC (4.8-10.8) K/uL RBC (4.40-5.90) Mil/uL Hgb (12.0-18.0) g/dL Hct (35.0-51.0) % MCV (80.0-94.0) fL MCH (27.0-31.0) pg MCHC (33.0-37.0) g/dL RDW (11.5-14.5) % Plt Count (130-400) K/uL MPV (7.2-11.7) fL Neut % (Auto) (50.0-75.0) % Lymph % (Auto) (20.0-40.0) % [place] % (Auto) (0.0-10.0) % Eos % (Auto) (0.0-4.0) % Baso % (Auto) (0.0-2.0) % Neut # (Auto) (1.8-7.0) K/uL Lymph # (Auto) (1.0-4.3) K/uL [place] # (Auto) (0.0-0.8) K/uL Eos # (Auto) (0.0-0.7) K/uL Baso # (Auto) (0.0-0.2) K/uL Total Counted Neutrophils % (Manual) Band Neutrophils % Lymphocytes % (Manual) Reactive Lymphs % Monocytes % (Manual) Eosinophils % (Manual) Basophils % (Manual) Metamyelocytes % Myelocytes % Promyelocytes % Blast Cells % Plasma Cell % (Manual) Nucleated RBC % Hypersegmented Polys Smudge Cells Toxic Granulation Dohle Bodies Kavita Rods Platelet Estimate Plt Clumps, EDTA Large Platelets Giant Platelets RBC Morphology Polychromasia Hypochromasia (manual) Poikilocytosis (manual Basophilic Stippling Anisocytosis (manual) Microcytosis (manual) Macrocytosis (manual) Spherocytes Sickle Cells Target Cells Tear Drop Cells Ovalocytes Stomatocytes Helmet Cells Bernstein-[place] Bodies [place] Cells Acanthocytes (Spur) Rouleaux Schistocytes Puncture Site Rb pCO2 27 L (35-45) mm/Hg pO2 71 L (80-100) mm/Hg HCO3 23.8 (21-28) mmol/L ABG pH 7.49 H (7.35-7.45) ABG Total CO2 21.4 L (22-28) mmol/L ABG O2 Saturation 96.8 (95-98) % ABG Base Excess -1.4 (-2.0-3.0) mmol/L Víctor Test Na ABG Potassium 2.9 L (3.6-5.2) mmol/L A-a O2 Difference 45.0 mm/Hg Respiratory Index 0.6 Sodium 135.0 (132-148) mmol/l Chloride 108.0 H (98-107) mmol/L Glucose 88 (75-110) mg/dl Lactate 0.8 (0.7-2.1) mmol/L Vent Mode Room air FiO2 21.0 % Potassium (3.6-5.2) mmol/L Carbon Dioxide (22-30) mmol/L Anion Gap (10-20) BUN (9-20) mg/dL Creatinine (0.8-1.5) mg/dL Est GFR ( Amer) Est GFR (Non-Af Amer) Random Glucose (75-110) mg/dL Calcium (8.6-10.4) mg/dl Phosphorus (2.5-4.5) mg/dL Magnesium (1.6-2.3) mg/dL Total Bilirubin (0.2-1.3) mg/dL AST (17-59) U/L ALT (21-72) U/L Alkaline Phosphatase (38-126) U/L Total Protein (6.3-8.3) g/dL Albumin (3.5-5.0) g/dL Globulin (2.2-3.9) gm/dL Albumin/Globulin Ratio (1.0-2.1) Arterial Blood Potassium 2.9 L (3.6-5.2) mmol/L Stool Occult Blood (NEGATIVE) Blood Type A POSITIVE Antibody Screen Negative Laboratory Results - last 24 hr 05/08/18 05/10/18 05/10/18 18:29 05:18 06:00 WBC 0.1 L* RBC 2.42 L Hgb 7.2 L Hct 20.9 L MCV 86.4 D MCH 29.9 MCHC 34.6 RDW 18.4 H Plt Count 12 L* D MPV 8.9 Neut % (Auto) 15.4 L Lymph % (Auto) 77.4 H [place] % (Auto) 4.0 Eos % (Auto) 3.2 Baso % (Auto) 0.0 Neut # (Auto) 0.0 L Lymph # (Auto) 0.1 L [place] # (Auto) 0.0 Eos # (Auto) 0.0 Baso # (Auto) 0.0 Total Counted Cancelled Neutrophils % (Manual) Cancelled Band Neutrophils % Cancelled Lymphocytes % (Manual) Cancelled Reactive Lymphs % Cancelled Monocytes % (Manual) Cancelled Eosinophils % (Manual) Cancelled Basophils % (Manual) Cancelled Metamyelocytes % Cancelled Myelocytes % Cancelled Promyelocytes % Cancelled Blast Cells % Cancelled Plasma Cell % (Manual) Cancelled Nucleated RBC % Cancelled Hypersegmented Polys Cancelled Smudge Cells Cancelled Toxic Granulation Cancelled Dohle Bodies Cancelled Kavita Rods Cancelled Platelet Estimate Cancelled Plt Clumps, EDTA Cancelled Large Platelets Cancelled Giant Platelets Cancelled RBC Morphology Cancelled Polychromasia Cancelled Hypochromasia (manual) Cancelled Poikilocytosis (manual Cancelled Basophilic Stippling Cancelled Anisocytosis (manual) Cancelled Microcytosis (manual) Cancelled Macrocytosis (manual) Cancelled Spherocytes Cancelled Sickle Cells Cancelled Target Cells Cancelled Tear Drop Cells Cancelled Ovalocytes Cancelled Stomatocytes Cancelled Helmet Cells Cancelled Bernstein-[place] Bodies Cancelled Saud Cells Cancelled Acanthocytes (Spur) Cancelled Rouleaux Cancelled Schistocytes Cancelled Puncture Site Rb pCO2 27 L pO2 71 L HCO3 23.8 ABG pH 7.49 H ABG Total CO2 21.4 L ABG O2 Saturation 96.8 ABG Base Excess -1.4 Víctor Test Na ABG Potassium 2.9 L A-a O2 Difference 45.0 Respiratory Index 0.6 Sodium 135.0 Chloride 108.0 H Glucose 88 Lactate 0.8 Vent Mode Room air FiO2 21.0 Potassium Carbon Dioxide Anion Gap BUN Creatinine Est GFR ( Amer) Est GFR (Non-Af Amer) Random Glucose Calcium Phosphorus Magnesium Total Bilirubin AST ALT Alkaline Phosphatase Total Protein Albumin Globulin Albumin/Globulin Ratio Arterial Blood Potassium 2.9 L Stool Occult Blood Blood Type A POSITIVE Antibody Screen Negative 05/10/18 05/10/18 06:00 09:43 WBC RBC Hgb Hct MCV MCH MCHC RDW Plt Count MPV Neut % (Auto) Lymph % (Auto) [place] % (Auto) Eos % (Auto) Baso % (Auto) Neut # (Auto) Lymph # (Auto) [place] # (Auto) Eos # (Auto) Baso # (Auto) Total Counted Neutrophils % (Manual) Band Neutrophils % Lymphocytes % (Manual) Reactive Lymphs % Monocytes % (Manual) Eosinophils % (Manual) Basophils % (Manual) Metamyelocytes % Myelocytes % Promyelocytes % Blast Cells % Plasma Cell % (Manual) Nucleated RBC % Hypersegmented Polys Smudge Cells Toxic Granulation Dohle Bodies Kavita Rods Platelet Estimate Plt Clumps, EDTA Large Platelets Giant Platelets RBC Morphology Polychromasia Hypochromasia (manual) Poikilocytosis (manual Basophilic Stippling Anisocytosis (manual) Microcytosis (manual) Macrocytosis (manual) Spherocytes Sickle Cells Target Cells Tear Drop Cells Ovalocytes Stomatocytes Helmet Cells Bernstein-[place] Bodies [place] Cells Acanthocytes (Spur) Rouleaux Schistocytes Puncture Site pCO2 pO2 HCO3 ABG pH ABG Total CO2 ABG O2 Saturation ABG Base Excess Víctor Test ABG Potassium A-a O2 Difference Respiratory Index Sodium 136 Chloride 105 Glucose Lactate Vent Mode FiO2 Potassium 3.1 L Carbon Dioxide 21 L Anion Gap 13 BUN 12 Creatinine 0.6 L Est GFR ( Amer) > 60 Est GFR (Non-Af Amer) > 60 Random Glucose 113 H Calcium 8.2 L Phosphorus 2.0 L Magnesium 1.6 Total Bilirubin 1.9 H AST 43 ALT 34 Alkaline Phosphatase 227 H Total Protein 5.6 L Albumin 2.8 L Globulin 2.8 Albumin/Globulin Ratio 1.0 Arterial Blood Potassium Stool Occult Blood Positive H Blood Type Antibody Screen Critical Care Progress Note - Extremities/Vascular Does the Patient have a Central Venous Catheter?: Yes Does the Patient need a Central Venous Catheter?: Yes Does the Patient have a Kaufman Catheter?: No Does the Patient need a Kaufman Catheter?: No - Nutrition Nutrition: Nutrition Category Date Time Status Regular Diet [DIET] Diets 05/09/18 Breakfast Active Assessment/Plan (1) Septic shock Current Visit: Yes Status: Acute Priority: High Comment: - Continue levophed for BP support, wean as tolerated - IV Hydrations - Blood cultures, urine cultures, MRSA screen sent. - IV Cefepime 2gm IV q8h - IV Tobramycin - IV Vancomycin 1gm q12h - IV Micafungin Sodium 100 mg IV Q24H - ID Consult to Dr. Rasmussen. (2) Pancytopenia Current Visit: Yes Status: Acute Priority: High Comment: - Transfuse 1 units PRBC. - Transfuse 1 unit Platelet - On 480 mg SQ Granix - Consult to Dr. Bae. (3) Neutropenic fever Current Visit: Yes Status: Acute Priority: High Comment: As per Septic shock (4) Small cell lung cancer Current Visit: Yes Status: Acute Priority: High (5) Electrolyte imbalance Current Visit: Yes Status: Acute Priority: High (6) Metastatic cancer to liver Current Visit: Yes Status: Acute Priority: Medium (7) S/P CABG (coronary artery bypass graft) Current Visit: No Status: Acute Priority: Medium
[2018-05-11] MEDS: Cefepime IV 2 gm in Dextrose 2 GM/100 ML BAG IVPB SCH ×3 (00:36→17:57)
--- NOTE | 2018-05-11 00:50 | PN ---
Copied To: Apple Rasmussen MD Attending MD: Apple Rasmussen MD DATE: 05/10/2018 INFECTIOUS DISEASE FOLLOWUP SUBJECTIVE: The patient was awake, alert. His T-max was 99.7. His family was around him. He is still in ICU. Remains in neutropenic precautions. PHYSICAL EXAMINATION: VITAL SIGNS: T-max is 97, blood pressure 110/67, respirations are 22. HEENT: Head is atraumatic, normocephalic. NECK: Supple. Tongue was moist, and he denied any appetite. LUNGS: Clear. He had no pains. HEART: S1 and S2 regular. ABDOMEN: Soft, nontender. BACK: He has been getting radiation to his back. Post radiation, he is neutropenic now. EXTREMITIES: No edema. He denied any pains. He still remains neutropenic. White count is 0.1, hemoglobin 7.2, hematocrit 20.9, platelets are dropping to 12 again. He remains neutropenic. His ABG was 7.49, CO2 of 21.4, oxygen saturation was 96.8. CO2 was 27, and cultures all came back negative. He is MRSA negative. Blood culture is negative for 24 hours. Urine culture is negative. He had a chest x-ray which did not show any acute infiltrate that I know of. So he is pancytopenic post radiation, and came in with fevers and is on multiple antibiotics at this time. He has prostate cancer with mets to the brain, lungs, and bone, and status post radiation; and he is weak right now and will continue coverage with the antibiotics and we will follow. Prognosis remains guarded. Apple Rasmussen MD
[2018-05-11] MEDS: Vancomycin 1 gm/NS 200 ml 1 GM/200 ML BAG IVPB SCH ×2 (01:20→13:00)
[2018-05-11] MEDS: Sodium Chloride 0.9% 1,000 ML IV SCH ×3 (04:44→18:02)
[2018-05-11 06:50] LABS: EOS % 0.6 % (0.0-4.0); HEMOGLOBIN 9.5 g/dL (12.0-18.0); LYMPH # 0.1 K/uL (1.0-4.3); LYMPH % 42.6 % (20.0-40.0); MEAN CELL VOLUME 85.6 fL (80.0-94.0); MEAN CORPUSCULAR HGB CONC 35.1 g/dL (33.0-37.0); MEAN PLATELET VOLUME 8.1 fL (7.2-11.7); MONO % 15.9 % (0.0-10.0); NEUT # 0.1 K/uL (1.8-7.0); NEUT % 40.9 % (50.0-75.0); RBC 3.16 Mil/uL (4.40-5.90); RED CELL DISTRIBUTION WIDTH 16.4 % (11.5-14.5)
[2018-05-11 06:56] LABS: ALB/GLOB RATIO 0.9 (1.0-2.1); ALBUMIN 2.8 g/dL (3.5-5.0); ALT/SGPT 49 U/L (21-72); AST/SGOT 52 U/L (17-59); BILIRUBIN,DIRECT 0.9 mg/dL (0.0-0.4); BLOOD UREA NITROGEN 9 mg/dL (9-20); CALCIUM 8.1 mg/dl (8.6-10.4); GFR NON-AFRICAN AMERICAN > 60
[2018-05-11 07:20] LABS: WHITE BLOOD COUNT 0.1 K/uL (4.8-10.8)
[2018-05-11] MEDS ORDERED: Potassium Chloride 20 mEq 100 ML ONE (08:30)
[2018-05-11] MEDS: Micafungin 100 MG in Sodium Chloride 0.9% 100 ML IV SCH (09:06)
--- NOTE | 2018-05-11 11:58 | US ---
HISTORY: high ti. ozzy and lk phos ? Obstruction COMPARISON: CT chest, abdomen, and pelvis with IV contrast performed 03/29/18 TECHNIQUE: Sonographic evaluation of the abdomen. FINDINGS: LIVER: Measures 18.3 cm in sagittal dimension. Heterogeneous hepatic echotexture. Multiple echogenic hepatic lesions are identified. For example 3.2 x 2.5 x 2.9 cm left hepatic lobe mass and 5.0 x 4.1 x 4.6 cm right hepatic lobe mass. The main portal vein appears patent with normal directional flow. No intrahepatic bile duct dilatation. GALLBLADDER: No gallstones. No gallbladder wall thickening. Negative sonographic Mcfarlane's sign as assessed by the application consultant. COMMON BILE DUCT: Measures 4 mm. PANCREAS: Not well visualized. RIGHT KIDNEY: Measures 10.9 x 4.0 x 5.3cm. No obstructing calculus or hydronephrosis identified. LEFT KIDNEY: Measures 10.6 x 6.6 x 6.1cm. No obstructing calculus or hydronephrosis identified. SPLEEN: Measures approximately 11.8 cm. AORTA: Limited views appear unremarkable. IVC: Limited views appear unremarkable. OTHER FINDINGS: None. IMPRESSION: Hepatic lesions consistent with known metastases. Mildly thickened gallbladder wall in the absence of gallstones for sonographic Mcfarlane's sign.
--- NOTE | 2018-05-11 13:22 | CP.PCM.PN ---
Subjective - Date & Time of Evaluation Date of Evaluation: 05/11/18 Time of Evaluation: 13:00 - Subjective Subjective: Feeling better Objective - Vital Signs/Intake and Output Vital Signs (last 24 hours): Temp Pulse Resp BP Pulse Ox 98.9 F 102 H 27 H 114/64 98 05/11/18 12:00 05/11/18 13:00 05/11/18 13:00 05/11/18 13:00 05/11/18 13:00 Intake and Output: 05/11/18 05/11/18 06:59 18:59 Intake Total 2004 970 Output Total 0 425 Balance 155 545 - Medications Medications: Current Medications Acetaminophen (Tylenol 325mg Tab) 650 mg PO Q6 PRN PRN Reason: Fever >100.4 F Last Admin: 05/11/18 04:42 Dose: 650 mg Acyclovir (Zovirax) 400 mg PO BID AWILDA PRN Reason: Protocol Last Admin: 05/11/18 12:59 Dose: 400 mg Fentanyl (Duragesic) 1 patch TD Q72H [facility] Last Admin: 05/10/18 12:26 Dose: 1 patch Norepinephrine Bitartrate 4 mg (/ Sodium Chloride) 254 mls @ 15.24 mls/hr IV .[id number] PRN; Protocol; 4 MCG/MIN PRN Reason: TITRATE PER MD ORDER Last Titration: 05/09/18 16:00 Dose: 0 mcg/min, 0 mls/hr Cefepime HCl (Maxipime Iv 2 Gm Premix) 2 gm in 100 mls @ 200 mls/hr IVPB Q8H AWILDA PRN Reason: Protocol Stop: 05/14/18 01:31 Last Admin: 05/11/18 09:02 Dose: 200 mls/hr Vancomycin/Sodium Chloride (Vancomycin 1 Gm/Ns 200 Ml) 1 gm in 200 mls @ 166.6 mls/hr IVPB Q12H AWILDA PRN Reason: Protocol Stop: 05/14/18 02:01 Last Admin: 05/11/18 13:00 Dose: 166.6 mls/hr Sodium Chloride (Sodium Chloride 0.9%) 1,000 mls @ 100 mls/hr IV .Q10H AWILDA Last Admin: 05/11/18 04:44 Dose: 100 mls/hr Tobramycin Sulfate 250 mg/ (Sodium Chloride) 106.25 mls @ 100 mls/hr IV Q24H AWILDA PRN Reason: Protocol Last Admin: 05/11/18 10:06 Dose: 100 mls/hr Micafungin Sodium 100 mg/ (Sodium Chloride) 100 mls @ 100 mls/hr IV Q24H AWILDA PRN Reason: Protocol Last Admin: 05/11/18 09:06 Dose: 100 mls/hr Potassium Chloride (Potassium Chloride 20 Meq/100 Ml) 20 meq in 100 mls @ 50 mls/hr IVPB TID AWILDA Stop: 05/11/18 19:59 Last Admin: 05/11/18 13:00 Dose: 50 mls/hr Sucralfate (Carafate Tab) 1 gm PO QID [facility] Last Admin: 05/11/18 12:59 Dose: 1 gm - Labs Labs: 05/11/18 06:40 05/11/18 06:37 PT 17.3 SECONDS (9.7-12.2) H 05/08/18 18:29 INR 1.6 05/08/18 18:29 APTT 24 SECONDS (21-34) 05/08/18 18:29 - Head Exam Head Exam: ATRAUMATIC - Eye Exam Eye Exam: Normal appearance - ENT Exam ENT Exam: Mucous Membranes Dry - Respiratory Exam Respiratory Exam: NORMAL BREATHING PATTERN - Cardiovascular Exam Cardiovascular Exam: +S1, +S2 - GI/Abdominal Exam GI & Abdominal Exam: Normal Bowel Sounds Assessment and Plan (1) Neutropenic fever Assessment & Plan: on IV antibiotics growth factor support Status: Acute (2) Pancytopenia Assessment & Plan: secondary to chemotherapy neutropenic precautions growth factor/transfusion support Status: Acute (3) Small cell lung cancer Assessment & Plan: stage IV live, brain, bone mets outpatient chemotherapy Status: Acute
--- NOTE | 2018-05-11 18:21 | CP.PCM.PN ---
Subjective - Date & Time of Evaluation Date of Evaluation: 05/11/18 Time of Evaluation: 13:00 - Subjective Subjective: dictated Objective - Vital Signs/Intake and Output Vital Signs (last 24 hours): Temp Pulse Resp BP Pulse Ox 100.4 F H 86 24 116/54 L 98 05/11/18 16:25 05/11/18 16:44 05/11/18 16:44 05/11/18 16:44 05/11/18 16:44 Intake and Output: 05/11/18 05/11/18 06:59 18:59 Intake Total 2004 1169 Output Total 1849 625 Balance 155 545 - Medications Medications: Current Medications Acetaminophen (Tylenol 325mg Tab) 650 mg PO Q6 PRN PRN Reason: Fever >100.4 F Last Admin: 05/11/18 15:49 Dose: 650 mg Acyclovir (Zovirax) 400 mg PO BID AWILDA PRN Reason: Protocol Last Admin: 05/11/18 17:57 Dose: 400 mg Fentanyl (Duragesic) 1 patch TD Q72H [facility] Last Admin: 05/10/18 12:26 Dose: 1 patch Norepinephrine Bitartrate 4 mg (/ Sodium Chloride) 254 mls @ 15.24 mls/hr IV .[id number] PRN; Protocol; 4 MCG/MIN PRN Reason: TITRATE PER MD ORDER Last Titration: 05/09/18 16:00 Dose: 0 mcg/min, 0 mls/hr Cefepime HCl (Maxipime Iv 2 Gm Premix) 2 gm in 100 mls @ 200 mls/hr IVPB Q8H AWILDA PRN Reason: Protocol Stop: 05/14/18 01:31 Last Admin: 05/11/18 17:57 Dose: 200 mls/hr Vancomycin/Sodium Chloride (Vancomycin 1 Gm/Ns 200 Ml) 1 gm in 200 mls @ 166.6 mls/hr IVPB Q12H AWILDA PRN Reason: Protocol Stop: 05/14/18 02:01 Last Admin: 05/11/18 13:00 Dose: 166.6 mls/hr Sodium Chloride (Sodium Chloride 0.9%) 1,000 mls @ 100 mls/hr IV .Q10H AWILDA Last Admin: 05/11/18 18:02 Dose: 100 mls/hr Tobramycin Sulfate 250 mg/ (Sodium Chloride) 106.25 mls @ 100 mls/hr IV Q24H AWILDA PRN Reason: Protocol Last Admin: 05/11/18 10:06 Dose: 100 mls/hr Micafungin Sodium 100 mg/ (Sodium Chloride) 100 mls @ 100 mls/hr IV Q24H AWILDA PRN Reason: Protocol Last Admin: 05/11/18 09:06 Dose: 100 mls/hr Potassium Chloride (Potassium Chloride 20 Meq/100 Ml) 20 meq in 100 mls @ 50 mls/hr IVPB TID [facility] Stop: 05/11/18 19:59 Last Admin: 05/11/18 17:58 Dose: 50 mls/hr Sucralfate (Carafate Tab) 1 gm PO QID [facility] Last Admin: 05/11/18 17:57 Dose: 1 gm - Labs Labs: 05/11/18 06:40 05/11/18 06:37 PT 17.3 SECONDS (9.7-12.2) H 05/08/18 18:29 INR 1.6 05/08/18 18:29 APTT 24 SECONDS (21-34) 05/08/18 18:29
--- NOTE | 2018-05-11 18:48 | CP.CCUPN ---
<Jossie Mosquera P - Last Filed: 05/11/18 18:45> CCU Subjective - Physician Review Subjective (Free Text): PGY-1 critical care progress note Patient seen and examined at bedside. Received 2 units PRBC and 1 unit PLT yesterday. Complains of R sided abdominal pain. Denies cough, shortness of breath, chest pain, difficulty urinating, nausea and vomiting. CCU Objective - Vital Signs / Intake & Output Vital Signs (Last 4 hours): Vital Signs Temp Pulse Resp BP Pulse Ox 05/11/18 16:44 86 24 116/54 L 98 05/11/18 16:30 96 H 24 112/84 99 05/11/18 16:25 100.4 F H 84 20 112/84 05/11/18 16:14 91 H 23 120/61 99 05/11/18 16:10 100.6 F H 81 20 120/61 05/11/18 16:00 93 H 21 99 05/11/18 15:58 90 25 H 132/68 99 05/11/18 15:49 100.7 F H 05/11/18 15:40 100.7 F H 95 H 18 132/68 05/11/18 15:33 95 H 22 138/61 78 L 05/11/18 15:00 87 26 H 98 05/11/18 14:58 89 27 H 124/74 98 Intake and Output (Last 8hrs): Intake & Output 05/11/18 05/11/18 05/11/18 06:59 14:59 22:59 Intake Total 1200 1170 0 Output Total 1550 625 Balance -350 545 0 Weight 121 lb Intake: Intake, IV Amount 1200 900 RIGHT FEMORAL MEDIAL PORT 300 200 right femoral proximal 900 700 port Oral 270 Blood Product 0 Apheresis Plts Acda Lr 0 Irr Unit [id number] Output: Urine 1550 625 Urine, Voided 1550 625 Other: # Voids Urine, Voided 1 # Bowel Movements 1 0 - Physical Exam Head: Positive for: Atraumatic, Normocephalic. Negative for: Tenderness, Contusion Pupils: Positive for: PERRL. Negative for: Sluggish, Non-Reactive Extroacular Muscles: Positive for: EOMI. Negative for: Gaze Palsy, Entrapment Conjunctiva: Positive for: Normal. Negative for: Injected, Icteric Ears: Positive for: Erythema, TM Bulging, Fluid, TM Perf Nose (Internal): Positive for: Normal Inspection Neck: Positive for: Normal Range of Motion. Negative for: Meningeal Signs, MIDLINE TENDERNESS, Paraspinal Tenderness, JVD, Lymphadenopathy, Bruit, Other Respiratory/Chest: Positive for: Clear to Auscultation. Negative for: Respiratory Distress, Accessory Muscle Use, Wheezes, Rales Cardiovascular: Positive for: Regular Rate and Rhythm, Normal S1, S2, Peripheal Pulses Present. Negative for: Irregular Rhythm Abdomen: Positive for: Normal Bowel Sounds. Negative for: Tenderness, Distention, Peritoneal Signs, Rebound, Guarding Upper Extremity: Positive for: Normal Inspection, Capillary Refill < 2s. Negative for: Cyanosis, Edema, Normal ROM Lower Extremity: Positive for: Normal Inspection, NORMAL PULSES. Negative for: Edema, CALF TENDERNESS Neurological: Positive for: GCS=15, CN II-XII Intact, Speech Normal, Motor Func Grossly Intact, Normal Sensory Function Skin: Positive for: Warm, Dry, Normal Color. Negative for: Rashes, Diaphoretic , Erythematous, Laceration Psychiatric: Positive for: Alert, Oriented x 3 - Medications Active Medications: Active Medications Generic Name Dose Route Start Last Admin Trade Name Freq PRN Reason Stop Dose Admin Acetaminophen 650 mg 05/10/18 16:45 05/11/18 15:49 Tylenol 325mg Tab PO 650 mg Q6 PRN Administration Fever >100.4 F Acyclovir 400 mg 05/11/18 12:00 05/11/18 17:57 Zovirax PO 400 mg BID AWILDA Administration Protocol Fentanyl 1 patch 05/10/18 12:15 05/10/18 12:26 Duragesic TD 1 patch Q72H AWILDA Administration Norepinephrine Bitartrate 4 mg 254 mls @ 15.24 mls/hr 05/09/18 00:05 16:00 / Sodium Chloride IV 0 mcg/min .[id number] PRN 0 mls/hr TITRATE PER MD ORDER Titration Protocol 4 MCG/MIN Vancomycin/Sodium Chloride 1 gm in 200 mls @ 166.6 mls/hr 05/09/18 02:00 13:00 Vancomycin 1 Gm/Ns 200 Ml IVPB 05/14/18 02:01 166.6 mls/hr Q12H AWILDA Administration Protocol Sodium Chloride 1,000 mls @ 100 mls/hr 05/09/18 02:30 05/11/18 18:02 Sodium Chloride 0.9% IV 100 mls/hr .Q10H AWILDA Administration Tobramycin Sulfate 250 mg/ 106.25 mls @ 100 mls/hr 05/09/18 11:00 05/11/18 10 :06 Sodium Chloride IV 100 mls/hr Q24H AWILDA Administration Protocol Micafungin Sodium 100 mg/ 100 mls @ 100 mls/hr 05/09/18 09:45 05/11/18 09:06 Sodium Chloride IV 100 mls/hr Q24H AWILDA Administration Protocol Potassium Chloride 20 meq in 100 mls @ 50 mls/hr 05/11/18 10:00 05/11/18 17: 58 Potassium Chloride 20 Meq/100 Ml IVPB 05/11/18 19:59 50 mls/hr TID AWILDA Administration Meropenem 1 gm/ Sodium 100 mls @ 100 mls/hr 05/11/18 19:00 Chloride IVPB Q8H AWILDA Protocol Sucralfate 1 gm 05/11/18 10:00 05/11/18 17:57 Carafate Tab PO 1 gm QID AWILDA Administration - Patient Studies Lab Studies: Microbiology Studies 05/08/18 19:00 Blood Culture - Preliminary Blood NO GROWTH AFTER 48 HOURS 05/08/18 18:45 Blood Culture - Preliminary Blood NO GROWTH AFTER 48 HOURS Lab Studies 05/11/18 05/11/18 Range/Units 06:40 06:37 WBC 0.1 L* (4.8-10.8) K/uL RBC 3.16 L (4.40-5.90) Mil/uL Hgb 9.5 L D (12.0-18.0) g/dL Hct 27.1 L (35.0-51.0) % MCV 85.6 (80.0-94.0) fL MCH 30.0 (27.0-31.0) pg MCHC 35.1 (33.0-37.0) g/dL RDW 16.4 H (11.5-14.5) % Plt Count 26 L* D (130-400) K/uL MPV 8.1 (7.2-11.7) fL Neut % (Auto) 40.9 L (50.0-75.0) % Lymph % (Auto) 42.6 H (20.0-40.0) % [place] % (Auto) 15.9 H (0.0-10.0) % Eos % (Auto) 0.6 (0.0-4.0) % Baso % (Auto) 0.0 (0.0-2.0) % Neut # (Auto) 0.1 L (1.8-7.0) K/uL Lymph # (Auto) 0.1 L (1.0-4.3) K/uL [place] # (Auto) 0.0 (0.0-0.8) K/uL Eos # (Auto) 0.0 (0.0-0.7) K/uL Baso # (Auto) 0.0 (0.0-0.2) K/uL Sodium 135 (132-148) mmol/L Potassium 2.9 L (3.6-5.2) mmol/L Chloride 103 (98-107) mmol/L Carbon Dioxide 21 L (22-30) mmol/L Anion Gap 14 (10-20) BUN 9 (9-20) mg/dL Creatinine 0.5 L (0.8-1.5) mg/dL Est GFR ( Amer) > 60 Est GFR (Non-Af Amer) > 60 Random Glucose 89 (75-110) mg/dL Calcium 8.1 L (8.6-10.4) mg/dl Phosphorus 2.2 L (2.5-4.5) mg/dL Magnesium 1.2 L (1.6-2.3) mg/dL Total Bilirubin 2.0 H (0.2-1.3) mg/dL Direct Bilirubin 0.9 H (0.0-0.4) mg/dL AST 52 (17-59) U/L ALT 49 (21-72) U/L Alkaline Phosphatase 274 H D (38-126) U/L Total Protein 5.7 L (6.3-8.3) g/dL Albumin 2.8 L (3.5-5.0) g/dL Globulin 2.9 (2.2-3.9) gm/dL Albumin/Globulin Ratio 0.9 L (1.0-2.1) Laboratory Results - last 24 hr 05/11/18 05/11/18 06:37 06:40 WBC 0.1 L* RBC 3.16 L Hgb 9.5 L D Hct 27.1 L MCV 85.6 MCH 30.0 MCHC 35.1 RDW 16.4 H Plt Count 26 L* D MPV 8.1 Neut % (Auto) 40.9 L Lymph % (Auto) 42.6 H [place] % (Auto) 15.9 H Eos % (Auto) 0.6 Baso % (Auto) 0.0 Neut # (Auto) 0.1 L Lymph # (Auto) 0.1 L [place] # (Auto) 0.0 Eos # (Auto) 0.0 Baso # (Auto) 0.0 Sodium 135 Potassium 2.9 L Chloride 103 Carbon Dioxide 21 L Anion Gap 14 BUN 9 Creatinine 0.5 L Est GFR ( Amer) > 60 Est GFR (Non-Af Amer) > 60 Random Glucose 89 Calcium 8.1 L Phosphorus 2.2 L Magnesium 1.2 L Total Bilirubin 2.0 H Direct Bilirubin 0.9 H AST 52 ALT 49 Alkaline Phosphatase 274 H D Total Protein 5.7 L Albumin 2.8 L Globulin 2.9 Albumin/Globulin Ratio 0.9 L Review of Systems - Review of Systems All systems: reviewed and no additional remarkable complaints except (as per HPI ) Critical Care Progress Note - Nutrition Nutrition: Nutrition Category Date Time Status Regular Diet [DIET] Diets 05/09/18 Breakfast Active Assessment/Plan - Assessment and Plan (Free Text) Plan: Patient is a 62 year old male with a PMH of lung CA (with multiple metastases-- pancreas, bone, brain, liver) s/p radiation (last on Apr 27) and chemotherapy (last on May 07), HTN, HLD, anemia, gastritis, anxiety, CABG who was admitted to the ICU for septic shock and neutropenic fever. Plan: Neuro: - Patient is AAOx3 - continue to monitor for mental status changes Cardiovascular: ECG on admission: Sinus tachycardia with PVCs Patient remains hypotensive and tachycardic. IV NS @ 100cc/hr and on Levophed drip. Pulm: maintain SpO2 > 95% Renal: - BUN/Cr stable 17/0.7 - UA: WBC 3 (normal), negative nitrate and leukocyte esterase - replete electrolytes as needed Hematology: - H/H 9.7/27.1 after Transfused 2 units PRBC on 05/11 - Platelet count 26 today after transfused 1 unit platelet on 05/11. Received another unit of PLTs today. - Consult to Dr. Bae. Help appreciated. -On 480 mg SQ Granix Infectious Disease: - Tmax today 100.9 - WBC critically low: 0.1 - Lactic acid: 2.6 - CXR 05/08: no focal consolidation - UA: WBC 3 (normal), negative nitrate and leukocyte esterase - blood cultures negative 48 hours - Urine cx no growth - Naris: MRSA not detected - Cefepime 2gm IV q8h - Micafungin 100mg q24h - Tobraymycin 250mg q24h - Vancomycin 1gm q12h - Acyclovir 400mg PO BID - ID Consult to Dr. Rasmussen. Help appreciated. Gastrointestinal: - regular diet - ABD US: Hepatic lesions consistent with known mets. Mildly thickened gallbladder wall in the absence of gallstones for sonographic Mcfarlane's sign ( see full report) - ALT/AST normal - total biliruin uptrending at 2.0 - Alkaline phosphatase elevated at 274 Endocrine - maintain euglycemia Prophylaxis: - VTE: chemical prophylaxis contraindicated due to thrombocytopenia - Consult to palliative care Discussed with Dr. Antonino Mccartney. <Divine Mccartney - Last Filed: 05/12/18 12:33> CCU Objective - Vital Signs / Intake & Output Vital Signs (Last 4 hours): Vital Signs Pulse Resp Pulse Ox 05/12/18 10:00 80 24 96 05/12/18 09:00 83 21 96 Intake and Output (Last 8hrs): Intake & Output 05/11/18 05/12/18 05/12/18 22:59 06:59 14:59 Intake Total 1534 1200 560 Output Total 1050 1250 300 Balance 484 -50 260 Weight 118 lb Intake: Intake, IV Amount 800 1200 300 Right Forearm 300 Right Upper arm 300 900 300 right femoral proximal 500 port Oral 260 Blood Product 634 Apheresis Plts Acda Lr 317 Irr Unit [id number] Other 100 Apheresis Plts Acda Lr 100 Irr Unit [id number] Output: Urine 1050 1250 300 Urine, Voided 1050 1250 300 Emesis 0 Other: # Voids Urine, Voided 1 # Bowel Movements 1 1 0 - Medications Active Medications: Active Medications Generic Name Dose Route Start Last Admin Trade Name Freq PRN Reason Stop Dose Admin Acetaminophen 650 mg 05/10/18 16:45 05/11/18 23:45 Tylenol 325mg Tab PO 650 mg Q6 PRN Administration Fever >100.4 F Acyclovir 400 mg 05/11/18 12:00 05/12/18 09:30 Zovirax PO 400 mg BID AWILDA Administration Protocol Fentanyl 1 patch 05/10/18 12:15 05/10/18 12:26 Duragesic TD 1 patch Q72H AWILDA Administration Tobramycin Sulfate 250 mg/ 106.25 mls @ 100 mls/hr 05/09/18 11:00 05/12/18 12 :24 Sodium Chloride IV 100 mls/hr Q24H AWILDA Administration Protocol Micafungin Sodium 100 mg/ 100 mls @ 100 mls/hr 05/09/18 09:45 05/12/18 08:47 Sodium Chloride IV 100 mls/hr Q24H AWILDA Administration Protocol Meropenem 1 gm/ Sodium 100 mls @ 100 mls/hr 05/11/18 19:00 05/12/18 12:20 Chloride IVPB 100 mls/hr Q8H AWILDA Administration Protocol Potassium Phosphate 15 mmole/ 255 mls @ 42.5 mls/hr 05/12/18 08:30 05/12/18 12:24 Sodium Chloride IVPB 05/12/18 14:29 42.5 mls/hr ONCE ONE Administration Sodium Chloride 1,000 mls @ 75 mls/hr 05/12/18 11:50 Sodium Chloride 0.9% IV .[id number] [facility] Potassium Chloride 40 meq 05/12/18 09:00 05/12/18 08:48 K-Dur 20 Meq Er Tab PO 05/12/18 21:01 40 meq Q6H AWILDA Administration Sucralfate 1 gm 05/11/18 10:00 05/12/18 11:00 Carafate Tab PO 1 gm QID AWILDA Administration - Patient Studies Lab Studies: Microbiology Studies 05/08/18 19:00 Blood Culture - Preliminary Blood NO GROWTH AFTER 3 DAYS 05/08/18 18:45 Blood Culture - Preliminary Blood NO GROWTH AFTER 3 DAYS Lab Studies 05/12/18 05/12/18 05/11/18 Range/Units 06:11 06:11 06:40 WBC 0.2 L* D (4.8-10.8) K/uL RBC 3.60 L (4.40-5.90) Mil/uL Hgb 10.8 L (12.0-18.0) g/dL Hct 30.7 L (35.0-51.0) % MCV 85.3 (80.0-94.0) fL MCH 30.1 (27.0-31.0) pg MCHC 35.3 (33.0-37.0) g/dL RDW 16.0 H (11.5-14.5) % Plt Count 50 L D 26 L* D (130-400) K/uL MPV 7.3 (7.2-11.7) fL Neut % (Auto) 8.5 L (50.0-75.0) % Lymph % (Auto) 72.2 H (20.0-40.0) % [place] % (Auto) 14.4 H (0.0-10.0) % Eos % (Auto) 4.9 H (0.0-4.0) % Baso % (Auto) 0.0 (0.0-2.0) % Neut # (Auto) 0.0 L (1.8-7.0) K/uL Lymph # (Auto) 0.1 L (1.0-4.3) K/uL [place] # (Auto) 0.0 (0.0-0.8) K/uL Eos # (Auto) 0.0 (0.0-0.7) K/uL Baso # (Auto) 0.0 (0.0-0.2) K/uL Total Counted Cancelled Neutrophils % (Manual) Cancelled Band Neutrophils % Cancelled Lymphocytes % (Manual) Cancelled Reactive Lymphs % Cancelled Monocytes % (Manual) Cancelled Eosinophils % (Manual) Cancelled Basophils % (Manual) Cancelled Metamyelocytes % Cancelled Myelocytes % Cancelled Promyelocytes % Cancelled Blast Cells % Cancelled Plasma Cell % (Manual) Cancelled Nucleated RBC % Cancelled Hypersegmented Polys Cancelled Smudge Cells Cancelled Toxic Granulation Cancelled Dohle Bodies Cancelled Kavita Rods Cancelled Platelet Estimate Cancelled Plt Clumps, EDTA Cancelled Large Platelets Cancelled Giant Platelets Cancelled RBC Morphology Cancelled Polychromasia Cancelled Hypochromasia (manual) Cancelled Poikilocytosis (manual Cancelled Basophilic Stippling Cancelled Anisocytosis (manual) Cancelled Microcytosis (manual) Cancelled Macrocytosis (manual) Cancelled Spherocytes Cancelled Sickle Cells Cancelled Target Cells Cancelled Tear Drop Cells Cancelled Ovalocytes Cancelled Stomatocytes Cancelled Helmet Cells Cancelled Bernstein-Neffs Bodies Cancelled [place] Cells Cancelled Acanthocytes (Spur) Cancelled Rouleaux Cancelled Schistocytes Cancelled Sodium 133 (132-148) mmol/L Potassium 3.1 L (3.6-5.2) mmol/L Chloride 100 (98-107) mmol/L Carbon Dioxide 20 L (22-30) mmol/L Anion Gap 16 (10-20) BUN 7 L (9-20) mg/dL Creatinine 0.4 L (0.8-1.5) mg/dL Est GFR ( Amer) > 60 Est GFR (Non-Af Amer) > 60 Random Glucose 87 (75-110) mg/dL Calcium 8.4 L (8.6-10.4) mg/dl Phosphorus 2.4 L (2.5-4.5) mg/dL Magnesium 1.2 L (1.6-2.3) mg/dL Total Bilirubin 1.8 H (0.2-1.3) mg/dL AST 46 (17-59) U/L ALT 49 (21-72) U/L Alkaline Phosphatase 332 H D (38-126) U/L Total Protein 6.1 L (6.3-8.3) g/dL Albumin 3.0 L (3.5-5.0) g/dL Globulin 3.0 (2.2-3.9) gm/dL Albumin/Globulin Ratio 1.0 (1.0-2.1) Laboratory Results - last 24 hr 05/11/18 05/12/18 05/12/18 06:40 06:11 06:11 WBC 0.2 L* D RBC 3.60 L Hgb 10.8 L Hct 30.7 L MCV 85.3 MCH 30.1 MCHC 35.3 RDW 16.0 H Plt Count 26 L* D 50 L D MPV 7.3 Neut % (Auto) 8.5 L Lymph % (Auto) 72.2 H [place] % (Auto) 14.4 H Eos % (Auto) 4.9 H Baso % (Auto) 0.0 Neut # (Auto) 0.0 L Lymph # (Auto) 0.1 L [place] # (Auto) 0.0 Eos # (Auto) 0.0 Baso # (Auto) 0.0 Total Counted Cancelled Neutrophils % (Manual) Cancelled Band Neutrophils % Cancelled Lymphocytes % (Manual) Cancelled Reactive Lymphs % Cancelled Monocytes % (Manual) Cancelled Eosinophils % (Manual) Cancelled Basophils % (Manual) Cancelled Metamyelocytes % Cancelled Myelocytes % Cancelled Promyelocytes % Cancelled Blast Cells % Cancelled Plasma Cell % (Manual) Cancelled Nucleated RBC % Cancelled Hypersegmented Polys Cancelled Smudge Cells Cancelled Toxic Granulation Cancelled Dohle Bodies Cancelled Kavita Rods Cancelled Platelet Estimate Cancelled Plt Clumps, EDTA Cancelled Large Platelets Cancelled Giant Platelets Cancelled RBC Morphology Cancelled Polychromasia Cancelled Hypochromasia (manual) Cancelled Poikilocytosis (manual Cancelled Basophilic Stippling Cancelled Anisocytosis (manual) Cancelled Microcytosis (manual) Cancelled Macrocytosis (manual) Cancelled Spherocytes Cancelled Sickle Cells Cancelled Target Cells Cancelled Tear Drop Cells Cancelled Ovalocytes Cancelled Stomatocytes Cancelled Helmet Cells Cancelled Bernstein-Neffs Bodies Cancelled [place]aud Cells Cancelled Acanthocytes (Spur) Cancelled Rouleaux Cancelled Schistocytes Cancelled Sodium 133 Potassium 3.1 L Chloride 100 Carbon Dioxide 20 L Anion Gap 16 BUN 7 L Creatinine 0.4 L Est GFR ( Amer) > 60 Est GFR (Non-Af Amer) > 60 Random Glucose 87 Calcium 8.4 L Phosphorus 2.4 L Magnesium 1.2 L Total Bilirubin 1.8 H AST 46 ALT 49 Alkaline Phosphatase 332 H D Total Protein 6.1 L Albumin 3.0 L Globulin 3.0 Albumin/Globulin Ratio 1.0 Critical Care Progress Note - Nutrition Nutrition: Nutrition Category Date Time Status Regular Diet [DIET] Diets 05/09/18 Breakfast Active Assessment/Plan - Assessment and Plan (Free Text) Plan: Patient seen and examined at bedside with above resident. PAtient off pressors -neutropenic fevers: continue empirical abx -avoid rectal exam/probe -contineu IVF -off pressors -hyperbillirubunemia: obtain RUQ US -continue dvt/pud ppx - Date & Time Date: 05/11/18 Time: 19:33
--- NOTE | 2018-05-11 20:29 | CP.PCM.PN ---
Subjective - Date & Time of Evaluation Date of Evaluation: 05/11/18 Time of Evaluation: 10:45 - Subjective Subjective: clinically same Objective - Vital Signs/Intake and Output Vital Signs (last 24 hours): Temp Pulse Resp BP Pulse Ox 100.4 F H 78 19 111/69 98 05/11/18 18:00 05/11/18 20:00 05/11/18 20:00 05/11/18 19:57 05/11/18 20:00 Intake and Output: 05/11/18 05/12/18 18:59 06:59 Intake Total 2304 100 Output Total 875 Balance 1429 100 - Medications Medications: Current Medications Acetaminophen (Tylenol 325mg Tab) 650 mg PO Q6 PRN PRN Reason: Fever >100.4 F Last Admin: 05/11/18 15:49 Dose: 650 mg Acyclovir (Zovirax) 400 mg PO BID AWILDA PRN Reason: Protocol Last Admin: 05/11/18 17:57 Dose: 400 mg Fentanyl (Duragesic) 1 patch TD Q72H AWILDA Last Admin: 05/10/18 12:26 Dose: 1 patch Norepinephrine Bitartrate 4 mg (/ Sodium Chloride) 254 mls @ 15.24 mls/hr IV .[id number] PRN; Protocol; 4 MCG/MIN PRN Reason: TITRATE PER MD ORDER Last Titration: 05/09/18 16:00 Dose: 0 mcg/min, 0 mls/hr Vancomycin/Sodium Chloride (Vancomycin 1 Gm/Ns 200 Ml) 1 gm in 200 mls @ 166.6 mls/hr IVPB Q12H AWILDA PRN Reason: Protocol Stop: 05/14/18 02:01 Last Admin: 05/11/18 13:00 Dose: 166.6 mls/hr Sodium Chloride (Sodium Chloride 0.9%) 1,000 mls @ 100 mls/hr IV .Q10H AWILDA Last Admin: 05/11/18 18:02 Dose: 100 mls/hr Tobramycin Sulfate 250 mg/ (Sodium Chloride) 106.25 mls @ 100 mls/hr IV Q24H AWILDA PRN Reason: Protocol Last Admin: 05/11/18 10:06 Dose: 100 mls/hr Micafungin Sodium 100 mg/ (Sodium Chloride) 100 mls @ 100 mls/hr IV Q24H AWILDA PRN Reason: Protocol Last Admin: 05/11/18 09:06 Dose: 100 mls/hr Meropenem 1 gm/ Sodium (Chloride) 100 mls @ 100 mls/hr IVPB Q8H [facility] PRN Reason: Protocol Sucralfate (Carafate Tab) 1 gm PO QID [facility] Last Admin: 05/11/18 17:57 Dose: 1 gm - Labs Labs: 05/11/18 06:40 05/11/18 06:37 PT 17.3 SECONDS (9.7-12.2) H 05/08/18 18:29 INR 1.6 05/08/18 18:29 APTT 24 SECONDS (21-34) 05/08/18 18:29 - Constitutional Appears: Well - Head Exam Head Exam: ATRAUMATIC, NORMAL INSPECTION, NORMOCEPHALIC - Eye Exam Eye Exam: EOMI, Normal appearance, PERRL Pupil Exam: NORMAL ACCOMODATION, PERRL - ENT Exam ENT Exam: Mucous Membranes Moist, Normal Exam - Neck Exam Neck Exam: Full ROM, Normal Inspection. absent: Lymphadenopathy - Respiratory Exam Respiratory Exam: Decreased Breath Sounds - Cardiovascular Exam Cardiovascular Exam: REGULAR RHYTHM, +S1, +S2 - GI/Abdominal Exam GI & Abdominal Exam: Soft, Diminished Bowel Sounds - Rectal Exam Rectal Exam: Deferred
[2018-05-11] MEDS: Meropenem 1 GM in Sodium Chloride 0.9% 100 ML IVPB SCH (20:35)
--- NOTE | 2018-05-11 21:54 | PN ---
Copied To: Apple Rasmussen MD Attending MD: Apple Rasmussen MD DATE: 05/11/2018 INFECTIOUS DISEASE FOLLOWUP SUBJECTIVE: I saw him around 1 o' clock today. He was afebrile. PHYSICAL EXAMINATION: VITAL SIGNS: He ate little bit, but at the time I am writing this note, his temperature has been 100.7, pulse 91, blood pressure 120/61, respirations are 23. HEENT: Head is atraumatic and normocephalic. Tongue is moist. NECK: Supple. LUNGS: Clear. No crackles or rales present. HEART: S1 and S2 are regular. ABDOMEN: Soft. Nontender. No guarding. No rigidity present. EXTREMITIES: Have Venodyne boots on. LABORATORY DATA: Labs are noted. Lab does show white count is 0.1, hemoglobin 9.5, hematocrit 27.1, platelet count is 26. He remains febrile and his chemistry shows potassium is 2.9, chlorides are 103, CO2 is 21, anion gap is 14, BUN is 9, creatinine 0.5. Alk phos is 274. AST and ALT are normal. ASSESSMENT AND PLAN: I added acyclovir today as he remains neutropenic. Cefepime, he is getting 2 g every 8 hours. He is on Micafungin. He still remains on Micafungin. He is on potassium. He is on tobramycin. He is on vancomycin. Cultures have been all negative, blood, urine. Other reports: They did an abdominal ultrasound, which shows hepatic lesions consistent with known metastasis, mild thickened gallbladder in the absence of gallstone for sonographic Mcfarlane's sign. There is no Mcfarlane's sign. No obstructing calculus or hydronephrosis in the kidneys. He has metastatic disease. So at this time, I am going to change the medication to meropenem, which remains the last resort medication at this time and discontinue the Maxipime as he is still febrile and will follow ____ as he is neutropenic in spite of being on extensive coverage of antibiotics and we will follow. Prognosis still remains guarded. I would discontinue the Maxipime at this time. Apple Rasmussen MD
[2018-05-12] MEDS: Sodium Chloride 0.9% 1,000 ML IV SCH ×2 (00:29→18:50)
[2018-05-12] MEDS: Meropenem 1 GM in Sodium Chloride 0.9% 100 ML IVPB SCH ×3 (03:13→18:01)
[2018-05-12] MEDS: Vancomycin 1 gm/NS 200 ml 1 GM/200 ML BAG IVPB SCH (03:15)
[2018-05-12 06:24] LABS: HEMOGLOBIN 10.8 g/dL (12.0-18.0); MEAN CELL VOLUME 85.3 fL (80.0-94.0); MEAN CORPUSCULAR HEMOGLOBIN 30.1 pg (27.0-31.0); MEAN CORPUSCULAR HGB CONC 35.3 g/dL (33.0-37.0); MEAN PLATELET VOLUME 7.3 fL (7.2-11.7); RBC 3.6 Mil/uL (4.40-5.90)
[2018-05-12] MEDS ORDERED: Sodium Chloride 0.9% 1,000 ML IV SCH (06:30)
[2018-05-12 06:32] LABS: ALT/SGPT 49 U/L (21-72); AST/SGOT 46 U/L (17-59); BLOOD UREA NITROGEN 7 mg/dL (9-20); CALCIUM 8.4 mg/dl (8.6-10.4); GFR NON-AFRICAN AMERICAN > 60
[2018-05-12 06:38] LABS: WHITE BLOOD COUNT 0.2 K/uL (4.8-10.8)
[2018-05-12] MEDS ORDERED: Magnesium Sulfate 1 gm in D5W 1 GM/100 ML BAG IVPB ONE (08:00)
[2018-05-12] MEDS ORDERED: Potassium Phosphate 15 MMOLE in Dextrose 5% In Water 250 ML IVPB ONE (08:15)
[2018-05-12] MEDS ORDERED: Potassium Phosphate 15 MMOLE in Sodium Chloride 0.9% 250 ML IVPB ONE (08:30)
[2018-05-12] MEDS: Magnesium Sulfate 1 gm in D5W 1 GM/100 ML BAG IVPB SCH ×2 (08:46→09:00)
[2018-05-12] MEDS: Micafungin 100 MG in Sodium Chloride 0.9% 100 ML IV SCH (08:47)
[2018-05-12] MEDS: Potassium Chloride 20 mEq ER Tab PO SCH ×3 (08:48→20:13)
[2018-05-12 08:54] LABS: EOS % 4.9 % (0.0-4.0); LYMPH % 72.2 % (20.0-40.0); MONO % 14.4 % (0.0-10.0); NEUT % 8.5 % (50.0-75.0)
[2018-05-12 08:56] LABS: LYMPH # 0.1 K/uL (1.0-4.3)
--- NOTE | 2018-05-12 11:42 | CP.PCM.PN ---
Subjective - Date & Time of Evaluation Date of Evaluation: 05/12/18 Time of Evaluation: 11:41 - Subjective Subjective: Patient admitted to ICU for neutropenic fevers. Objective - Vital Signs/Intake and Output Vital Signs (last 24 hours): Temp Pulse Resp BP Pulse Ox 99.6 F 80 24 127/63 96 05/12/18 08:00 05/12/18 10:00 05/12/18 10:00 05/12/18 07:57 05/12/18 10:00 Intake and Output: 05/12/18 05/12/18 06:59 18:59 Intake Total 1600 560 Output Total 2050 300 Balance -450 260 - Medications Medications: Current Medications Acetaminophen (Tylenol 325mg Tab) 650 mg PO Q6 PRN PRN Reason: Fever >100.4 F Last Admin: 05/11/18 23:45 Dose: 650 mg Acyclovir (Zovirax) 400 mg PO BID AWILDA PRN Reason: Protocol Last Admin: 05/11/18 17:57 Dose: 400 mg Fentanyl (Duragesic) 1 patch TD Q72H [facility] Last Admin: 05/10/18 12:26 Dose: 1 patch Norepinephrine Bitartrate 4 mg (/ Sodium Chloride) 254 mls @ 15.24 mls/hr IV .[id number] PRN; Protocol; 4 MCG/MIN PRN Reason: TITRATE PER MD ORDER Last Titration: 05/09/18 16:00 Dose: 0 mcg/min, 0 mls/hr Tobramycin Sulfate 250 mg/ (Sodium Chloride) 106.25 mls @ 100 mls/hr IV Q24H [facility]ILDA PRN Reason: Protocol Last Admin: 05/11/18 10:06 Dose: 100 mls/hr Micafungin Sodium 100 mg/ (Sodium Chloride) 100 mls @ 100 mls/hr IV Q24H [facility] PRN Reason: Protocol Last Admin: 05/12/18 08:47 Dose: 100 mls/hr Meropenem 1 gm/ Sodium (Chloride) 100 mls @ 100 mls/hr IVPB Q8H [facility] PRN Reason: Protocol Last Admin: 05/12/18 03:13 Dose: 100 mls/hr Sodium Chloride (Sodium Chloride 0.9%) 1,000 mls @ 100 mls/hr IV .Q10H [facility] Last Admin: 05/12/18 06:34 Dose: 100 mls/hr Potassium Phosphate 15 mmole/ (Sodium Chloride) 255 mls @ 42.5 mls/hr IVPB ONCE ONE Stop: 05/12/18 14:29 Potassium Chloride (K-Dur 20 Meq Er Tab) 40 meq PO Q6H [facility] Stop: 05/12/18 21:01 Last Admin: 05/12/18 08:48 Dose: 40 meq Sucralfate (Carafate Tab) 1 gm PO QID [facility] Last Admin: 05/11/18 21:56 Dose: 1 gm - Labs Labs: 05/12/18 06:11 05/12/18 06:11 PT 17.3 SECONDS (9.7-12.2) H 05/08/18 18:29 INR 1.6 05/08/18 18:29 APTT 24 SECONDS (21-34) 05/08/18 18:29 - Head Exam Head Exam: ATRAUMATIC, NORMAL INSPECTION, NORMOCEPHALIC - Respiratory Exam Respiratory Exam: NORMAL BREATHING PATTERN. absent: Rales, Rhonchi, Wheezes - Cardiovascular Exam Cardiovascular Exam: REGULAR RHYTHM, +S1, +S2 - GI/Abdominal Exam GI & Abdominal Exam: Normal Bowel Sounds - Extremities Exam Extremities Exam: Full ROM - Neurological Exam Neurological Exam: Alert, Awake, CN II-XII Intact, Oriented x3 Assessment and Plan - Assessment and Plan (Free Text) Assessment: 62 year old male with a PMH of lung CA (with multiple metastases--pancreas, bone , brain, liver) s/p radiation (last on Apr 27) and chemotherapy (last on May 07), HTN, HLD, anemia, gastritis, anxiety, CABG who was admitted to the ICU for septic shock and neutropenic fever. -Neutropenic sepsis without shock: continue abx as per ID,off pressors -femoral central line remvoved and no bleeding at groin site day #2 -continue neupogen -PT/OT -contineu dvt/pud ppx -Patient remains hemodynamically stable.
--- NOTE | 2018-05-12 15:52 | CP.PCM.PN ---
Subjective - Date & Time of Evaluation Date of Evaluation: 05/12/18 Time of Evaluation: 10:00 - Subjective Subjective: clinically same Objective - Vital Signs/Intake and Output Vital Signs (last 24 hours): Temp Pulse Resp BP Pulse Ox 99.6 F 91 H 24 120/60 95 05/12/18 08:00 05/12/18 15:00 05/12/18 15:00 05/12/18 14:34 05/12/18 15:00 Intake and Output: 05/12/18 05/12/18 06:59 18:59 Intake Total 1600 870 Output Total 2050 700 Balance -450 170 - Medications Medications: Current Medications Acetaminophen (Tylenol 325mg Tab) 650 mg PO Q6 PRN PRN Reason: Fever >100.4 F Last Admin: 05/11/18 23:45 Dose: 650 mg Acyclovir (Zovirax) 400 mg PO BID AWILDA PRN Reason: Protocol Last Admin: 05/12/18 09:30 Dose: 400 mg Fentanyl (Duragesic) 1 patch TD Q72H [facility] Last Admin: 05/10/18 12:26 Dose: 1 patch Tobramycin Sulfate 250 mg/ (Sodium Chloride) 106.25 mls @ 100 mls/hr IV Q24H [facility] PRN Reason: Protocol Last Admin: 05/12/18 12:24 Dose: 100 mls/hr Micafungin Sodium 100 mg/ (Sodium Chloride) 100 mls @ 100 mls/hr IV Q24H [facility] PRN Reason: Protocol Last Admin: 05/12/18 08:47 Dose: 100 mls/hr Meropenem 1 gm/ Sodium (Chloride) 100 mls @ 100 mls/hr IVPB Q8H [facility] PRN Reason: Protocol Last Admin: 05/12/18 12:20 Dose: 100 mls/hr Sodium Chloride (Sodium Chloride 0.9%) 1,000 mls @ 75 mls/hr IV .[id number] [facility] Potassium Chloride (K-Dur 20 Meq Er Tab) 40 meq PO Q6H [facility] Stop: 05/12/18 21:01 Last Admin: 05/12/18 08:48 Dose: 40 meq Sucralfate (Carafate Tab) 1 gm PO QID [facility] Last Admin: 05/12/18 11:00 Dose: 1 gm - Labs Labs: 05/12/18 06:11 05/12/18 06:11 PT 17.3 SECONDS (9.7-12.2) H 05/08/18 18:29 INR 1.6 05/08/18 18:29 APTT 24 SECONDS (21-34) 05/08/18 18:29 - Constitutional Appears: Well - Head Exam Head Exam: ATRAUMATIC, NORMAL INSPECTION, NORMOCEPHALIC - Eye Exam Eye Exam: EOMI, Normal appearance, PERRL Pupil Exam: NORMAL ACCOMODATION, PERRL - ENT Exam ENT Exam: Mucous Membranes Moist, Normal Exam - Neck Exam Neck Exam: Full ROM, Normal Inspection. absent: Lymphadenopathy - Respiratory Exam Respiratory Exam: Decreased Breath Sounds - Cardiovascular Exam Cardiovascular Exam: REGULAR RHYTHM, +S1, +S2 - GI/Abdominal Exam GI & Abdominal Exam: Soft, Diminished Bowel Sounds - Rectal Exam Rectal Exam: Deferred
--- NOTE | 2018-05-12 19:22 | CP.PCM.PN ---
Subjective - Date & Time of Evaluation Date of Evaluation: 05/12/18 Time of Evaluation: 17:00 - Subjective Subjective: Feeling better. Objective - Vital Signs/Intake and Output Vital Signs (last 24 hours): Temp Pulse Resp BP Pulse Ox 99.7 F H 94 H 25 H 122/66 97 05/12/18 16:00 05/12/18 19:00 05/12/18 19:00 05/12/18 16:34 05/12/18 19:00 Intake and Output: 05/12/18 05/13/18 18:59 06:59 Intake Total 1670 Output Total 1120 Balance 550 - Medications Medications: Current Medications Acetaminophen (Tylenol 325mg Tab) 650 mg PO Q6 PRN PRN Reason: Fever >100.4 F Last Admin: 05/11/18 23:45 Dose: 650 mg Acetaminophen (Tylenol 650 Mg Supp) 650 mg [place] Q6 PRN PRN Reason: Pain, moderate (4-7) Acyclovir (Zovirax) 400 mg PO BID AWILDA PRN Reason: Protocol Last Admin: 05/12/18 17:45 Dose: 400 mg Fentanyl (Duragesic) 1 patch TD Q72H [facility] Last Admin: 05/10/18 12:26 Dose: 1 patch Tobramycin Sulfate 250 mg/ (Sodium Chloride) 106.25 mls @ 100 mls/hr IV Q24H [facility] PRN Reason: Protocol Last Admin: 05/12/18 12:24 Dose: 100 mls/hr Micafungin Sodium 100 mg/ (Sodium Chloride) 100 mls @ 100 mls/hr IV Q24H [facility] PRN Reason: Protocol Last Admin: 05/12/18 08:47 Dose: 100 mls/hr Meropenem 1 gm/ Sodium (Chloride) 100 mls @ 100 mls/hr IVPB Q8H [facility] PRN Reason: Protocol Last Admin: 05/12/18 18:01 Dose: 100 mls/hr Sodium Chloride (Sodium Chloride 0.9%) 1,000 mls @ 75 mls/hr IV .[id number] [facility] Last Admin: 05/12/18 18:50 Dose: Not Given Potassium Chloride (K-Dur 20 Meq Er Tab) 40 meq PO Q6H [facility] Stop: 05/12/18 21:01 Last Admin: 05/12/18 15:00 Dose: 40 meq Sucralfate (Carafate Tab) 1 gm PO QID [facility] Last Admin: 05/12/18 17:45 Dose: 1 gm - Labs Labs: 05/12/18 06:11 05/12/18 06:11 PT 17.3 SECONDS (9.7-12.2) H 05/08/18 18:29 INR 1.6 05/08/18 18:29 APTT 24 SECONDS (21-34) 05/08/18 18:29 - Head Exam Head Exam: ATRAUMATIC - Eye Exam Eye Exam: Normal appearance - ENT Exam ENT Exam: Mucous Membranes Dry - Respiratory Exam Respiratory Exam: NORMAL BREATHING PATTERN - Cardiovascular Exam Cardiovascular Exam: +S1, +S2 - GI/Abdominal Exam GI & Abdominal Exam: Normal Bowel Sounds Assessment and Plan (1) Pancytopenia Assessment & Plan: secondary to chemotherapy on growth factor/transfusion support neutropenic precautions Status: Acute (2) Small cell lung cancer Assessment & Plan: stage IV mild elevation of Tbili noted; likely liver mets related outpatient treatment Status: Acute
[2018-05-13] MEDS: Meropenem 1 GM in Sodium Chloride 0.9% 100 ML IVPB SCH ×3 (02:02→19:18)
[2018-05-13] MEDS: Sodium Chloride 0.9% 1,000 ML IV SCH ×2 (02:14→21:00)
[2018-05-13 05:51] LABS: HEMOGLOBIN 10.2 g/dL (12.0-18.0); MEAN CELL VOLUME 84.9 fL (80.0-94.0); MEAN CORPUSCULAR HEMOGLOBIN 30.3 pg (27.0-31.0); MEAN CORPUSCULAR HGB CONC 35.7 g/dL (33.0-37.0); MEAN PLATELET VOLUME 7.3 fL (7.2-11.7); RBC 3.36 Mil/uL (4.40-5.90); RED CELL DISTRIBUTION WIDTH 15.9 % (11.5-14.5)
[2018-05-13 06:04] LABS: ALB/GLOB RATIO 1.1 (1.0-2.1); ALT/SGPT 46 U/L (21-72); AST/SGOT 32 U/L (17-59); BLOOD UREA NITROGEN 9 mg/dL (9-20); CALCIUM 8.4 mg/dl (8.6-10.4); GFR NON-AFRICAN AMERICAN > 60
[2018-05-13 06:22] LABS: WHITE BLOOD COUNT 0.2 K/uL (4.8-10.8)
[2018-05-13 09:22] LABS: EOS % 2.7 % (0.0-4.0); LYMPH % 69.2 % (20.0-40.0); MONO % 11.1 % (0.0-10.0)
[2018-05-13 09:23] LABS: NRBC % 0.5 % (0.0-2.0)
[2018-05-13] MEDS: Micafungin 100 MG in Sodium Chloride 0.9% 100 ML IV SCH (09:56)
[2018-05-13] MEDS: Magnesium Sulfate 1 gm in D5W 1 GM/100 ML BAG IVPB SCH ×2 (11:51→12:59)
[2018-05-13] MEDS ORDERED: Sodium Phosphate 15 MMOLE in Sodium Chloride 0.9% 250 ML IVPB ONE (13:00)
--- NOTE | 2018-05-13 13:48 | CP.PCM.PN ---
Subjective - Date & Time of Evaluation Date of Evaluation: 05/13/18 Time of Evaluation: 09:45 - Subjective Subjective: clinically same Objective - Vital Signs/Intake and Output Vital Signs (last 24 hours): Temp Pulse Resp BP Pulse Ox 98.9 F 96 H 25 H 135/69 98 05/13/18 12:00 05/13/18 12:04 05/13/18 12:04 05/13/18 12:04 05/13/18 12:00 Intake and Output: 05/13/18 05/13/18 06:59 18:59 Intake Total 75 2540 Output Total 0 1700 Balance 75 840 - Medications Medications: Current Medications Acetaminophen (Tylenol 325mg Tab) 650 mg PO Q6 PRN PRN Reason: Fever >100.4 F Last Admin: 05/12/18 20:13 Dose: 650 mg Acetaminophen (Tylenol 650 Mg Supp) 650 mg [place] Q6 PRN PRN Reason: Pain, moderate (4-7) Acyclovir (Zovirax) 400 mg PO BID AWILDA PRN Reason: Protocol Last Admin: 05/13/18 09:56 Dose: 400 mg Fentanyl (Duragesic) 1 patch TD Q72H [facility] Last Admin: 05/13/18 11:53 Dose: 1 patch Tobramycin Sulfate 250 mg/ (Sodium Chloride) 106.25 mls @ 100 mls/hr IV Q24H [facility] PRN Reason: Protocol Last Admin: 05/13/18 10:58 Dose: 100 mls/hr Micafungin Sodium 100 mg/ (Sodium Chloride) 100 mls @ 100 mls/hr IV Q24H [facility] PRN Reason: Protocol Last Admin: 05/13/18 09:56 Dose: 100 mls/hr Meropenem 1 gm/ Sodium (Chloride) 100 mls @ 100 mls/hr IVPB Q8H [facility] PRN Reason: Protocol Last Admin: 05/13/18 11:51 Dose: 100 mls/hr Sodium Chloride (Sodium Chloride 0.9%) 1,000 mls @ 75 mls/hr IV .[id number] [facility] Last Admin: 05/13/18 02:14 Dose: 75 mls/hr Sodium Phosphate 15 mmole/ (Sodium Chloride) 255 mls @ 50 mls/hr IVPB .Q5H6M ONE Stop: 08/26/18 18:05 Sucralfate (Carafate Tab) 1 gm PO QID [facility] Last Admin: 05/13/18 13:10 Dose: 1 gm - Labs Labs: 05/13/18 05:46 05/13/18 05:46 PT 17.3 SECONDS (9.7-12.2) H 05/08/18 18:29 INR 1.6 05/08/18 18:29 APTT 24 SECONDS (21-34) 05/08/18 18:29 - Constitutional Appears: Well - Head Exam Head Exam: ATRAUMATIC, NORMAL INSPECTION, NORMOCEPHALIC - Eye Exam Eye Exam: EOMI, Normal appearance, PERRL Pupil Exam: NORMAL ACCOMODATION, PERRL - ENT Exam ENT Exam: Mucous Membranes Moist, Normal Exam - Neck Exam Neck Exam: Full ROM, Normal Inspection. absent: Lymphadenopathy - Respiratory Exam Respiratory Exam: Decreased Breath Sounds - Cardiovascular Exam Cardiovascular Exam: REGULAR RHYTHM, +S1, +S2 - GI/Abdominal Exam GI & Abdominal Exam: Soft, Diminished Bowel Sounds - Rectal Exam Rectal Exam: Deferred
--- NOTE | 2018-05-13 21:51 | CP.PCM.PN ---
Subjective - Date & Time of Evaluation Date of Evaluation: 05/13/18 Time of Evaluation: 13:00 - Subjective Subjective: dictated Objective - Vital Signs/Intake and Output Vital Signs (last 24 hours): Temp Pulse Resp BP Pulse Ox 100.2 F H 98 H 16 127/66 97 05/13/18 20:00 05/13/18 20:00 05/13/18 20:00 05/13/18 15:51 05/13/18 20:00 Intake and Output: 05/13/18 05/14/18 18:59 06:59 Intake Total 2440 Output Total 1700 Balance 740 - Medications Medications: Current Medications Acetaminophen (Tylenol 325mg Tab) 650 mg PO Q6 PRN PRN Reason: Fever >100.4 F Last Admin: 05/12/18 20:13 Dose: 650 mg Acetaminophen (Tylenol 650 Mg Supp) 650 mg [place] Q6 PRN PRN Reason: Pain, moderate (4-7) Acyclovir (Zovirax) 400 mg PO BID AWILDA PRN Reason: Protocol Last Admin: 05/13/18 18:17 Dose: 400 mg Fentanyl (Duragesic) 1 patch TD Q72H [facility] Last Admin: 05/13/18 11:53 Dose: 1 patch Tobramycin Sulfate 250 mg/ (Sodium Chloride) 106.25 mls @ 100 mls/hr IV Q24H [facility] PRN Reason: Protocol Last Admin: 05/13/18 10:58 Dose: 100 mls/hr Micafungin Sodium 100 mg/ (Sodium Chloride) 100 mls @ 100 mls/hr IV Q24H [facility] PRN Reason: Protocol Last Admin: 05/13/18 09:56 Dose: 100 mls/hr Meropenem 1 gm/ Sodium (Chloride) 100 mls @ 100 mls/hr IVPB Q8H [facility] PRN Reason: Protocol Last Admin: 05/13/18 19:18 Dose: 100 mls/hr Sodium Chloride (Sodium Chloride 0.9%) 1,000 mls @ 75 mls/hr IV .[id number] [facility] Last Admin: 05/13/18 02:14 Dose: 75 mls/hr Sucralfate (Carafate Tab) 1 gm PO QID [facility] Last Admin: 05/13/18 18:17 Dose: 1 gm - Labs Labs: 05/13/18 05:46 05/13/18 05:46 PT 17.3 SECONDS (9.7-12.2) H 05/08/18 18:29 INR 1.6 05/08/18 18:29 APTT 24 SECONDS (21-34) 05/08/18 18:29
[2018-05-13] MEDS: Vancomycin 1 gm/NS 200 ml 1 GM/200 ML BAG IVPB SCH (22:44)
--- NOTE | 2018-05-14 01:56 | PN ---
Copied To: Apple Rasmussen MD Attending MD: Apple Rasmussen MD DATE: 05/13/2018 INFECTIOUS DISEASE FOLLOWUP SUBJECTIVE: The patient was seen today. He was afebrile. Has a nasal air tube. He was not complaining. Family member was saying he is not eating much. PHYSICAL EXAMINATION: VITAL SIGNS: T-max was 99. Respiration were 16. HEENT: Head is atraumatic. NECK: Supple. LUNGS: Clear. No crackles or rales present. HEART: S1, S2 are regular. ABDOMEN: Soft, nontender. EXTREMITIES: Remain with no edema. LABORATORY DATA: White count is only 0.2. He remains pancytopenic. Hemoglobin 10.2, platelet is 32. Sodium 130, potassium 4.5, chlorides are 98, CO2 is 23, creatinine is 0.4. LFTs: Alk phos is 342, total protein is 5.8, albumin is 3. He had an abdominal ultrasound. The ultrasound shows hepatic lesions consistent with known metastasis, mildly thickened gallbladder in the absence of gallstones on sonographic that was noted. ASSESSMENT AND PLAN: At this time, the patient remains acutely ill. I will re-evaluate my medications. He is on acyclovir orally. He is on meropenem, micafungin, tobramycin. We will put him back on vancomycin. I do not see the vancomycin there. Occult blood is positive. We will order vancomycin stat. Prognosis remains guarded. He is status post radiation, has a metastatic disease of prostate. He is on Granix. Apple Rasmussen MD
[2018-05-14] MEDS: Meropenem 1 GM in Sodium Chloride 0.9% 100 ML IVPB SCH ×3 (02:08→19:35)
[2018-05-14] MEDS: Sodium Chloride 0.9% 1,000 ML IV SCH ×2 (04:40→19:35)
[2018-05-14 06:29] LABS: HEMOGLOBIN 10.5 g/dL (12.0-18.0); MEAN CELL VOLUME 85.9 fL (80.0-94.0); MEAN CORPUSCULAR HGB CONC 34.9 g/dL (33.0-37.0); MEAN PLATELET VOLUME 8.3 fL (7.2-11.7); RBC 3.51 Mil/uL (4.40-5.90); RED CELL DISTRIBUTION WIDTH 15.9 % (11.5-14.5)
[2018-05-14 06:38] LABS: WHITE BLOOD COUNT 0.2 K/uL (4.8-10.8)
[2018-05-14 06:46] LABS: ALB/GLOB RATIO 1.1 (1.0-2.1); ALBUMIN 3.3 g/dL (3.5-5.0); ALT/SGPT 51 U/L (21-72); AST/SGOT 58 U/L (17-59); BLOOD UREA NITROGEN 12 mg/dL (9-20); CALCIUM 8.2 mg/dl (8.6-10.4); GFR NON-AFRICAN AMERICAN > 60
[2018-05-14] MEDS: Micafungin 100 MG in Sodium Chloride 0.9% 100 ML IV SCH (09:50)
[2018-05-14 10:17] LABS: LYMPH # 0.2 K/uL (1.0-4.3)
[2018-05-14] MEDS: Vancomycin 1 gm/NS 200 ml 1 GM/200 ML BAG IVPB SCH ×2 (11:02→22:25)
--- NOTE | 2018-05-14 19:59 | CP.PCM.PN ---
Subjective - Date & Time of Evaluation Date of Evaluation: 05/14/18 Time of Evaluation: 10:45 - Subjective Subjective: clinically same Objective - Vital Signs/Intake and Output Vital Signs (last 24 hours): Temp Pulse Resp BP Pulse Ox 100.8 F H 90 20 110/63 98 05/14/18 19:35 05/14/18 18:00 05/14/18 16:00 05/14/18 16:00 05/14/18 16:00 Intake and Output: 05/14/18 05/15/18 18:59 06:59 Intake Total 1000 Output Total 600 Balance 400 - Medications Medications: Current Medications Acetaminophen (Tylenol 325mg Tab) 650 mg PO Q6 PRN PRN Reason: Fever >100.4 F Last Admin: 05/14/18 19:35 Dose: 650 mg Acetaminophen (Tylenol 650 Mg Supp) 650 mg [place] Q6 PRN PRN Reason: Pain, moderate (4-7) Tobramycin Sulfate 250 mg/ (Sodium Chloride) 106.25 mls @ 100 mls/hr IV Q24H [facility] PRN Reason: Protocol Last Admin: 05/14/18 12:00 Dose: 100 mls/hr Micafungin Sodium 100 mg/ (Sodium Chloride) 100 mls @ 100 mls/hr IV Q24H [facility] PRN Reason: Protocol Last Admin: 05/14/18 09:50 Dose: 100 mls/hr Meropenem 1 gm/ Sodium (Chloride) 100 mls @ 100 mls/hr IVPB Q8H [facility] PRN Reason: Protocol Last Admin: 05/14/18 19:35 Dose: 100 mls/hr Sodium Chloride (Sodium Chloride 0.9%) 1,000 mls @ 75 mls/hr IV .[id number] [facility] Last Admin: 05/14/18 19:35 Dose: Not Given Vancomycin/Sodium Chloride (Vancomycin 1 Gm/Ns 200 Ml) 1 gm in 200 mls @ 166.6 mls/hr IVPB Q12H [facility] PRN Reason: Protocol Stop: 05/18/18 23:01 Last Admin: 05/14/18 11:02 Dose: 166.6 mls/hr Sucralfate (Carafate Tab) 1 gm PO QID [facility] Last Admin: 05/14/18 18:23 Dose: 1 gm - Labs Labs: 05/14/18 06:24 05/14/18 06:24 PT 17.3 SECONDS (9.7-12.2) H 05/08/18 18:29 INR 1.6 05/08/18 18:29 APTT 24 SECONDS (21-34) 05/08/18 18:29 - Constitutional Appears: Well - Head Exam Head Exam: ATRAUMATIC, NORMAL INSPECTION, NORMOCEPHALIC - Eye Exam Eye Exam: EOMI, Normal appearance, PERRL Pupil Exam: NORMAL ACCOMODATION, PERRL - ENT Exam ENT Exam: Mucous Membranes Moist, Normal Exam - Neck Exam Neck Exam: Full ROM, Normal Inspection. absent: Lymphadenopathy - Respiratory Exam Respiratory Exam: Decreased Breath Sounds - Cardiovascular Exam Cardiovascular Exam: REGULAR RHYTHM, +S1, +S2 - GI/Abdominal Exam GI & Abdominal Exam: Soft, Diminished Bowel Sounds - Rectal Exam Rectal Exam: Deferred
[2018-05-15] MEDS: Meropenem 1 GM in Sodium Chloride 0.9% 100 ML IVPB SCH ×3 (04:00→18:01)
[2018-05-15] MEDS: Sodium Chloride 0.9% 1,000 ML IV SCH ×2 (06:20→20:50)
[2018-05-15] MEDS: Micafungin 100 MG in Sodium Chloride 0.9% 100 ML IV SCH (09:36)
[2018-05-15 10:12] LABS: HEMOGLOBIN 10.6 g/dL (12.0-18.0); MEAN CELL VOLUME 85.1 fL (80.0-94.0); MEAN CORPUSCULAR HEMOGLOBIN 30.1 pg (27.0-31.0); MEAN CORPUSCULAR HGB CONC 35.3 g/dL (33.0-37.0); MEAN PLATELET VOLUME 8.3 fL (7.2-11.7); RBC 3.53 Mil/uL (4.40-5.90); RED CELL DISTRIBUTION WIDTH 15.2 % (11.5-14.5)
[2018-05-15 10:19] LABS: LYMPH % 66.2 % (20.0-40.0); MONO % 4.9 % (0.0-10.0); NEUT % 26.7 % (50.0-75.0); WHITE BLOOD COUNT 0.3 K/uL (4.8-10.8)
[2018-05-15 10:20] LABS: BASO % 1.5 % (0.0-2.0); EOS % 0.7 % (0.0-4.0); LYMPH # 0.2 K/uL (1.0-4.3); NEUT # 0.1 K/uL (1.8-7.0)
[2018-05-15] MEDS: Vancomycin 1 gm/NS 200 ml 1 GM/200 ML BAG IVPB SCH ×2 (13:22→22:39)
--- NOTE | 2018-05-15 18:22 | CP.PCM.PN ---
Subjective - Date & Time of Evaluation Date of Evaluation: 05/15/18 Time of Evaluation: 11:00 - Subjective Subjective: clinically same Objective - Vital Signs/Intake and Output Vital Signs (last 24 hours): Temp Pulse Resp BP Pulse Ox 99.7 F H 94 H 16 119/71 97 05/15/18 18:02 05/15/18 18:02 05/15/18 18:02 05/15/18 18:02 05/15/18 16:00 Intake and Output: 05/15/18 05/15/18 06:59 18:59 Intake Total 1630 378 Output Total 850 Balance 780 378 - Medications Medications: Current Medications Acetaminophen (Tylenol 325mg Tab) 650 mg PO Q6 PRN PRN Reason: Fever >100.4 F Last Admin: 05/14/18 19:35 Dose: 650 mg Acetaminophen (Tylenol 650 Mg Supp) 650 mg [place] Q6 PRN PRN Reason: Pain, moderate (4-7) Fentanyl (Duragesic) 1 patch TD Q72H [facility] Last Admin: 05/15/18 13:21 Dose: 1 patch Tobramycin Sulfate 250 mg/ (Sodium Chloride) 106.25 mls @ 100 mls/hr IV Q24H [facility] PRN Reason: Protocol Last Admin: 05/15/18 11:08 Dose: 100 mls/hr Micafungin Sodium 100 mg/ (Sodium Chloride) 100 mls @ 100 mls/hr IV Q24H [facility] PRN Reason: Protocol Last Admin: 05/15/18 09:36 Dose: 100 mls/hr Meropenem 1 gm/ Sodium (Chloride) 100 mls @ 100 mls/hr IVPB Q8H [facility] PRN Reason: Protocol Last Admin: 05/15/18 18:01 Dose: 100 mls/hr Vancomycin/Sodium Chloride (Vancomycin 1 Gm/Ns 200 Ml) 1 gm in 200 mls @ 166.6 mls/hr IVPB Q12H [facility] PRN Reason: Protocol Stop: 05/18/18 23:01 Last Admin: 05/15/18 13:22 Dose: 166.6 mls/hr Sucralfate (Carafate Tab) 1 gm PO QID [facility] Last Admin: 05/15/18 17:13 Dose: 1 gm - Labs Labs: 05/15/18 10:05 05/14/18 06:24 PT 17.3 SECONDS (9.7-12.2) H 05/08/18 18:29 INR 1.6 05/08/18 18:29 APTT 24 SECONDS (21-34) 05/08/18 18:29 - Constitutional Appears: Well - Head Exam Head Exam: ATRAUMATIC, NORMAL INSPECTION, NORMOCEPHALIC - Eye Exam Eye Exam: EOMI, Normal appearance, PERRL Pupil Exam: NORMAL ACCOMODATION, PERRL - ENT Exam ENT Exam: Mucous Membranes Moist, Normal Exam - Neck Exam Neck Exam: Full ROM, Normal Inspection. absent: Lymphadenopathy - Respiratory Exam Respiratory Exam: Decreased Breath Sounds - Cardiovascular Exam Cardiovascular Exam: REGULAR RHYTHM, +S1, +S2 - GI/Abdominal Exam GI & Abdominal Exam: Soft, Diminished Bowel Sounds - Rectal Exam Rectal Exam: Deferred
--- NOTE | 2018-05-15 21:25 | CP.PCM.PN ---
Subjective - Date & Time of Evaluation Date of Evaluation: 05/15/18 Time of Evaluation: 19:35 - Subjective Subjective: No complaints. Objective - Vital Signs/Intake and Output Vital Signs (last 24 hours): Temp Pulse Resp BP Pulse Ox 99.4 F 89 18 118/63 97 05/15/18 19:51 05/15/18 19:51 05/15/18 19:51 05/15/18 19:51 05/15/18 19:51 Intake and Output: 05/15/18 05/16/18 18:59 06:59 Intake Total 2156 75 Output Total 1001 Balance 1155 75 - Medications Medications: Current Medications Acetaminophen (Tylenol 325mg Tab) 650 mg PO Q6 PRN PRN Reason: Fever >100.4 F Last Admin: 05/14/18 19:35 Dose: 650 mg Acetaminophen (Tylenol 650 Mg Supp) 650 mg [place] Q6 PRN PRN Reason: Pain, moderate (4-7) Fentanyl (Duragesic) 1 patch TD Q72H [facility] Last Admin: 05/15/18 13:21 Dose: 1 patch Tobramycin Sulfate 250 mg/ (Sodium Chloride) 106.25 mls @ 100 mls/hr IV Q24H [facility] PRN Reason: Protocol Last Admin: 05/15/18 11:08 Dose: 100 mls/hr Micafungin Sodium 100 mg/ (Sodium Chloride) 100 mls @ 100 mls/hr IV Q24H [facility] PRN Reason: Protocol Last Admin: 05/15/18 09:36 Dose: 100 mls/hr Meropenem 1 gm/ Sodium (Chloride) 100 mls @ 100 mls/hr IVPB Q8H [facility] PRN Reason: Protocol Last Admin: 05/15/18 18:01 Dose: 100 mls/hr Vancomycin/Sodium Chloride (Vancomycin 1 Gm/Ns 200 Ml) 1 gm in 200 mls @ 166.6 mls/hr IVPB Q12H [facility] PRN Reason: Protocol Stop: 05/18/18 23:01 Last Admin: 05/15/18 13:22 Dose: 166.6 mls/hr Sodium Chloride (Sodium Chloride 0.9%) 1,000 mls @ 75 mls/hr IV .[id number] [facility] Last Admin: 05/15/18 20:50 Dose: Not Given Sucralfate (Carafate Tab) 1 gm PO QID [facility] Last Admin: 05/15/18 21:02 Dose: 1 gm - Labs Labs: 05/15/18 10:05 05/14/18 06:24 PT 17.3 SECONDS (9.7-12.2) H 05/08/18 18:29 INR 1.6 05/08/18 18:29 APTT 24 SECONDS (21-34) 05/08/18 18:29 - Head Exam Head Exam: ATRAUMATIC - Eye Exam Eye Exam: Normal appearance - ENT Exam ENT Exam: Mucous Membranes Dry - Respiratory Exam Respiratory Exam: NORMAL BREATHING PATTERN - Cardiovascular Exam Cardiovascular Exam: +S1, +S2 - GI/Abdominal Exam GI & Abdominal Exam: Normal Bowel Sounds Assessment and Plan (1) Pancytopenia Assessment & Plan: secondary to chemotherapy on growth factor/transfusion support neutropenic precautions Status: Acute (2) Small cell lung cancer Assessment & Plan: stage IV mild elevation of Tbili noted; likely liver mets related outpatient treatment Status: Acute
--- NOTE | 2018-05-15 21:26 | CP.PCM.PN ---
Subjective - Date & Time of Evaluation Date of Evaluation: 05/15/18 Time of Evaluation: 13:00 - Subjective Subjective: Has some abdominal pain. For plt transfusion. Objective - Vital Signs/Intake and Output Vital Signs (last 24 hours): Temp Pulse Resp BP Pulse Ox 99.4 F 89 18 118/63 97 05/15/18 19:51 05/15/18 19:51 05/15/18 19:51 05/15/18 19:51 05/15/18 19:51 Intake and Output: 05/15/18 05/16/18 18:59 06:59 Intake Total 2156 75 Output Total 1001 Balance 1155 75 - Medications Medications: Current Medications Acetaminophen (Tylenol 325mg Tab) 650 mg PO Q6 PRN PRN Reason: Fever >100.4 F Last Admin: 05/14/18 19:35 Dose: 650 mg Acetaminophen (Tylenol 650 Mg Supp) 650 mg [place] Q6 PRN PRN Reason: Pain, moderate (4-7) Fentanyl (Duragesic) 1 patch TD Q72H [facility] Last Admin: 05/15/18 13:21 Dose: 1 patch Tobramycin Sulfate 250 mg/ (Sodium Chloride) 106.25 mls @ 100 mls/hr IV Q24H [facility] PRN Reason: Protocol Last Admin: 05/15/18 11:08 Dose: 100 mls/hr Micafungin Sodium 100 mg/ (Sodium Chloride) 100 mls @ 100 mls/hr IV Q24H [facility] PRN Reason: Protocol Last Admin: 05/15/18 09:36 Dose: 100 mls/hr Meropenem 1 gm/ Sodium (Chloride) 100 mls @ 100 mls/hr IVPB Q8H [facility] PRN Reason: Protocol Last Admin: 05/15/18 18:01 Dose: 100 mls/hr Vancomycin/Sodium Chloride (Vancomycin 1 Gm/Ns 200 Ml) 1 gm in 200 mls @ 166.6 mls/hr IVPB Q12H [facility] PRN Reason: Protocol Stop: 05/18/18 23:01 Last Admin: 05/15/18 13:22 Dose: 166.6 mls/hr Sodium Chloride (Sodium Chloride 0.9%) 1,000 mls @ 75 mls/hr IV .[id number] [facility] Last Admin: 05/15/18 20:50 Dose: Not Given Sucralfate (Carafate Tab) 1 gm PO QID AWILDA Last Admin: 05/15/18 21:02 Dose: 1 gm - Labs Labs: 05/15/18 10:05 05/14/18 06:24 PT 17.3 SECONDS (9.7-12.2) H 05/08/18 18:29 INR 1.6 05/08/18 18:29 APTT 24 SECONDS (21-34) 05/08/18 18:29 - Head Exam Head Exam: ATRAUMATIC - Eye Exam Eye Exam: Normal appearance - ENT Exam ENT Exam: Mucous Membranes Dry - Respiratory Exam Respiratory Exam: NORMAL BREATHING PATTERN - Cardiovascular Exam Cardiovascular Exam: +S1, +S2 - GI/Abdominal Exam GI & Abdominal Exam: Normal Bowel Sounds Assessment and Plan (1) Pancytopenia Assessment & Plan: secondary to chemotherapy on growth factor/transfusion support neutropenic precautions Status: Acute (2) Small cell lung cancer Assessment & Plan: stage IV mild elevation of Tbili noted; likely liver mets related outpatient treatment Status: Acute
[2018-05-16] MEDS: Meropenem 1 GM in Sodium Chloride 0.9% 100 ML IVPB SCH ×3 (03:30→18:42)
[2018-05-16] MEDS: Sodium Chloride 0.9% 1,000 ML IV SCH ×2 (03:30→09:42)
[2018-05-16 06:28] LABS: HEMOGLOBIN 9.7 g/dL (12.0-18.0); MEAN CELL VOLUME 83.2 fL (80.0-94.0); MEAN PLATELET VOLUME 8.6 fL (7.2-11.7); RBC 3.25 Mil/uL (4.40-5.90); RED CELL DISTRIBUTION WIDTH 15.4 % (11.5-14.5)
[2018-05-16 06:39] LABS: WHITE BLOOD COUNT 0.4 K/uL (4.8-10.8)
[2018-05-16 06:49] LABS: BLOOD UREA NITROGEN 10 mg/dL (9-20); CALCIUM 8.9 mg/dl (8.6-10.4); GFR NON-AFRICAN AMERICAN > 60
[2018-05-16 09:36] LABS: BASO % 0.4 % (0.0-2.0); LYMPH # 0.2 K/uL (1.0-4.3); LYMPH % 57.3 % (20.0-40.0); MONO % 4.2 % (0.0-10.0); NEUT # 0.1 K/uL (1.8-7.0); NEUT % 37.1 % (50.0-75.0); NRBC % 0.2 % (0.0-2.0)
[2018-05-16] MEDS: Micafungin 100 MG in Sodium Chloride 0.9% 100 ML IV SCH (09:39)
[2018-05-16] MEDS: Vancomycin 1 gm/NS 200 ml 1 GM/200 ML BAG IVPB SCH ×2 (13:14→22:24)
--- NOTE | 2018-05-16 17:46 | CP.PCM.PN ---
Subjective - Date & Time of Evaluation Date of Evaluation: 05/16/18 Time of Evaluation: 07:15 - Subjective Subjective: clinically same Objective - Vital Signs/Intake and Output Vital Signs (last 24 hours): Temp Pulse Resp BP Pulse Ox 98.2 F 93 H 18 103/66 98 05/16/18 16:00 05/16/18 16:00 05/16/18 16:00 05/16/18 16:00 05/16/18 16:00 Intake and Output: 05/16/18 05/16/18 06:59 18:59 Intake Total 75 Balance 75 - Medications Medications: Current Medications Acetaminophen (Tylenol 325mg Tab) 650 mg PO Q6 PRN PRN Reason: Fever >100.4 F Last Admin: 05/14/18 19:35 Dose: 650 mg Acetaminophen (Tylenol 650 Mg Supp) 650 mg [place] Q6 PRN PRN Reason: Pain, moderate (4-7) Fentanyl (Duragesic) 1 patch TD Q72H [facility] Last Admin: 05/15/18 13:21 Dose: 1 patch Tobramycin Sulfate 250 mg/ (Sodium Chloride) 106.25 mls @ 100 mls/hr IV Q24H [facility] PRN Reason: Protocol Last Admin: 05/16/18 10:43 Dose: 100 mls/hr Micafungin Sodium 100 mg/ (Sodium Chloride) 100 mls @ 100 mls/hr IV Q24H [facility] PRN Reason: Protocol Last Admin: 05/16/18 09:39 Dose: 100 mls/hr Meropenem 1 gm/ Sodium (Chloride) 100 mls @ 100 mls/hr IVPB Q8H [facility] PRN Reason: Protocol Last Admin: 05/16/18 11:20 Dose: 100 mls/hr Vancomycin/Sodium Chloride (Vancomycin 1 Gm/Ns 200 Ml) 1 gm in 200 mls @ 166.6 mls/hr IVPB Q12H [facility] PRN Reason: Protocol Stop: 05/18/18 23:01 Last Admin: 05/16/18 13:14 Dose: 166.6 mls/hr Sodium Chloride (Sodium Chloride 0.9%) 1,000 mls @ 75 mls/hr IV .[id number] [facility] Last Admin: 05/16/18 09:42 Dose: Not Given Sucralfate (Carafate Tab) 1 gm PO QID [facility] Last Admin: 05/16/18 17:29 Dose: 1 gm - Labs Labs: 05/16/18 06:22 05/16/18 06:22 PT 17.3 SECONDS (9.7-12.2) H 05/08/18 18:29 INR 1.6 05/08/18 18:29 APTT 24 SECONDS (21-34) 05/08/18 18:29 - Constitutional Appears: Well - Head Exam Head Exam: ATRAUMATIC, NORMAL INSPECTION, NORMOCEPHALIC - Eye Exam Eye Exam: EOMI, Normal appearance, PERRL Pupil Exam: NORMAL ACCOMODATION, PERRL - ENT Exam ENT Exam: Mucous Membranes Moist, Normal Exam - Neck Exam Neck Exam: Full ROM, Normal Inspection. absent: Lymphadenopathy - Respiratory Exam Respiratory Exam: Decreased Breath Sounds - Cardiovascular Exam Cardiovascular Exam: REGULAR RHYTHM, +S1, +S2 - GI/Abdominal Exam GI & Abdominal Exam: Soft, Diminished Bowel Sounds - Rectal Exam Rectal Exam: Deferred
--- NOTE | 2018-05-16 21:19 | CP.PCM.PN ---
Subjective - Date & Time of Evaluation Date of Evaluation: 05/16/18 Time of Evaluation: 18:00 - Subjective Subjective: Has some abdominal pain. Objective - Vital Signs/Intake and Output Vital Signs (last 24 hours): Temp Pulse Resp BP Pulse Ox 98.2 F 93 H 18 103/66 98 05/16/18 16:00 05/16/18 16:00 05/16/18 16:00 05/16/18 16:00 05/16/18 16:00 - Medications Medications: Current Medications Acetaminophen (Tylenol 325mg Tab) 650 mg PO Q6 PRN PRN Reason: Fever >100.4 F Last Admin: 05/14/18 19:35 Dose: 650 mg Acetaminophen (Tylenol 650 Mg Supp) 650 mg [place] Q6 PRN PRN Reason: Pain, moderate (4-7) Fentanyl (Duragesic) 1 patch TD Q72H [facility] Last Admin: 05/15/18 13:21 Dose: 1 patch Tobramycin Sulfate 250 mg/ (Sodium Chloride) 106.25 mls @ 100 mls/hr IV Q24H [facility] PRN Reason: Protocol Last Admin: 05/16/18 10:43 Dose: 100 mls/hr Micafungin Sodium 100 mg/ (Sodium Chloride) 100 mls @ 100 mls/hr IV Q24H [facility] PRN Reason: Protocol Last Admin: 05/16/18 09:39 Dose: 100 mls/hr Meropenem 1 gm/ Sodium (Chloride) 100 mls @ 100 mls/hr IVPB Q8H [facility] PRN Reason: Protocol Last Admin: 05/16/18 18:42 Dose: 100 mls/hr Vancomycin/Sodium Chloride (Vancomycin 1 Gm/Ns 200 Ml) 1 gm in 200 mls @ 166.6 mls/hr IVPB Q12H [facility] PRN Reason: Protocol Stop: 05/18/18 23:01 Last Admin: 05/16/18 13:14 Dose: 166.6 mls/hr Sodium Chloride (Sodium Chloride 0.9%) 1,000 mls @ 75 mls/hr IV .[id number] [facility] Last Admin: 05/16/18 09:42 Dose: Not Given Sucralfate (Carafate Tab) 1 gm PO QID [facility] Last Admin: 05/16/18 17:29 Dose: 1 gm - Labs Labs: 05/16/18 06:22 08/29/18 06:22 PT 17.3 SECONDS (9.7-12.2) H 05/08/18 18:29 INR 1.6 05/08/18 18:29 APTT 24 SECONDS (21-34) 05/08/18 18:29 - Head Exam Head Exam: ATRAUMATIC - Eye Exam Eye Exam: Normal appearance - ENT Exam ENT Exam: Mucous Membranes Dry - Respiratory Exam Respiratory Exam: NORMAL BREATHING PATTERN - Cardiovascular Exam Cardiovascular Exam: +S1, +S2 - GI/Abdominal Exam GI & Abdominal Exam: Normal Bowel Sounds Assessment and Plan (1) Pancytopenia Assessment & Plan: secondary to chemotherapy growth factor/transfusion support Status: Acute (2) Small cell lung cancer Assessment & Plan: stage IV outpatient treatment Status: Acute
[2018-05-17] MEDS: Meropenem 1 GM in Sodium Chloride 0.9% 100 ML IVPB SCH ×3 (02:58→19:17)
[2018-05-17 06:58] LABS: EOS % 0.6 % (0.0-4.0); LYMPH # 0.3 K/uL (1.0-4.3); LYMPH % 51.2 % (20.0-40.0); MEAN CELL VOLUME 82.5 fL (80.0-94.0); MEAN CORPUSCULAR HEMOGLOBIN 29.9 pg (27.0-31.0); MEAN CORPUSCULAR HGB CONC 36.3 g/dL (33.0-37.0); MEAN PLATELET VOLUME 9.2 fL (7.2-11.7); MONO % 5.8 % (0.0-10.0); NEUT # 0.2 K/uL (1.8-7.0); NEUT % 39.4 % (50.0-75.0); NRBC % 0.9 % (0.0-2.0); RBC 3.35 Mil/uL (4.40-5.90); RED CELL DISTRIBUTION WIDTH 15.1 % (11.5-14.5)
[2018-05-17 07:02] LABS: WHITE BLOOD COUNT 0.5 K/uL (4.8-10.8)
--- NOTE | 2018-05-17 08:24 | CP.PCM.PN ---
Subjective - Date & Time of Evaluation Date of Evaluation: 05/17/18 Time of Evaluation: 08:00 - Subjective Subjective: PGY-2 Med Note- Dr. Nicole Mccartney's service 62 year old male with past medical history of small cell lung cancer with mets. Patient was seen and examined at bedtime in the AM. Patient states he is feeling tired but other [place] patient has no other complaints. Objective - Vital Signs/Intake and Output Vital Signs (last 24 hours): Temp Pulse Resp BP Pulse Ox 98.2 F 90 20 105/67 96 05/17/18 07:45 05/17/18 07:45 05/17/18 07:45 05/17/18 07:45 05/17/18 07:45 Intake and Output: 05/17/18 05/17/18 06:59 18:59 Intake Total 1550 Output Total 700 Balance 850 - Medications Medications: Current Medications Acetaminophen (Tylenol 325mg Tab) 650 mg PO Q6 PRN PRN Reason: Fever >100.4 F Last Admin: 05/14/18 19:35 Dose: 650 mg Acetaminophen (Tylenol 650 Mg Supp) 650 mg [place] Q6 PRN PRN Reason: Pain, moderate (4-7) Fentanyl (Duragesic) 1 patch TD Q72H [facility] Last Admin: 05/15/18 13:21 Dose: 1 patch Tobramycin Sulfate 250 mg/ (Sodium Chloride) 106.25 mls @ 100 mls/hr IV Q24H [facility] PRN Reason: Protocol Last Admin: 05/16/18 10:43 Dose: 100 mls/hr Micafungin Sodium 100 mg/ (Sodium Chloride) 100 mls @ 100 mls/hr IV Q24H [facility] PRN Reason: Protocol Last Admin: 05/16/18 09:39 Dose: 100 mls/hr Meropenem 1 gm/ Sodium (Chloride) 100 mls @ 100 mls/hr IVPB Q8H [facility] PRN Reason: Protocol Last Admin: 05/17/18 02:58 Dose: 100 mls/hr Vancomycin/Sodium Chloride (Vancomycin 1 Gm/Ns 200 Ml) 1 gm in 200 mls @ 166.6 mls/hr IVPB Q12H [facility] PRN Reason: Protocol Stop: 05/18/18 23:01 Last Admin: 05/16/18 22:24 Dose: 166.6 mls/hr Sodium Chloride (Sodium Chloride 0.9%) 1,000 mls @ 75 mls/hr IV .[id number] [facility] Last Admin: 05/16/18 09:42 Dose: Not Given Sucralfate (Carafate Tab) 1 gm PO QID [facility] Last Admin: 05/16/18 21:33 Dose: 1 gm - Labs Labs: 05/17/18 06:35 05/16/18 06:22 PT 17.3 SECONDS (9.7-12.2) H 05/08/18 18:29 INR 1.6 05/08/18 18:29 APTT 24 SECONDS (21-34) 05/08/18 18:29 - Constitutional Appears: No Acute Distress, Chronically Ill - Head Exam Head Exam: ATRAUMATIC, NORMAL INSPECTION - Eye Exam Eye Exam: EOMI, Normal appearance - ENT Exam ENT Exam: Mucous Membranes Moist - Respiratory Exam Respiratory Exam: NORMAL BREATHING PATTERN - Cardiovascular Exam Cardiovascular Exam: REGULAR RHYTHM, +S1, +S2 - GI/Abdominal Exam GI & Abdominal Exam: Soft, Normal Bowel Sounds. absent: Tenderness - Extremities Exam Extremities Exam: Normal Inspection - Neurological Exam Neurological Exam: Alert, Awake, Oriented x3 - Psychiatric Exam Psychiatric exam: Normal Affect - Skin Skin Exam: Normal Color Assessment and Plan - Assessment and Plan (Free Text) Assessment: Pancytopenia secondary to chemotherapy adebrile Onc Consult: Dr. Bae --> help appreciated Meropenem IB q8h Tobramycin 250mg q24h Vancomycin 1gm q12h Micafungin 100mg IV q24h NS @75cc/hr Granix 480mcg SC daily Small Cell Lung Cancer outpatient treatment with Oncologist, Dr. Bae All medical management per Dr. Debo Yanes PGY-2
[2018-05-17] MEDS: Micafungin 100 MG in Sodium Chloride 0.9% 100 ML IV SCH (08:45)
[2018-05-17] MEDS: Vancomycin 1 gm/NS 200 ml 1 GM/200 ML BAG IVPB SCH ×2 (11:00→22:57)
[2018-05-17 11:51] LABS: BASO % 1.7 % (0.0-2.0); EOS % 0.5 % (0.0-4.0); HEMOGLOBIN 10.1 g/dL (12.0-18.0); LYMPH # 0.3 K/uL (1.0-4.3); LYMPH % 51.6 % (20.0-40.0); MEAN CORPUSCULAR HEMOGLOBIN 29.9 pg (27.0-31.0); MEAN CORPUSCULAR HGB CONC 36.1 g/dL (33.0-37.0); MEAN PLATELET VOLUME 9.8 fL (7.2-11.7); MONO % 4.9 % (0.0-10.0); NEUT # 0.2 K/uL (1.8-7.0); NEUT % 41.3 % (50.0-75.0); NRBC % 0.9 % (0.0-2.0); RBC 3.38 Mil/uL (4.40-5.90); RED CELL DISTRIBUTION WIDTH 15.4 % (11.5-14.5)
[2018-05-17 11:55] LABS: WHITE BLOOD COUNT 0.5 K/uL (4.8-10.8)
[2018-05-17] MEDS: Sodium Chloride 0.9% 1,000 ML IV SCH (12:17)
[2018-05-17 12:26] LABS: ALB/GLOB RATIO 1.1 (1.0-2.1); ALBUMIN 3.3 g/dL (3.5-5.0); ALT/SGPT 44 U/L (21-72); AST/SGOT 39 U/L (17-59); BLOOD UREA NITROGEN 10 mg/dL (9-20); CALCIUM 8.7 mg/dl (8.6-10.4); GFR NON-AFRICAN AMERICAN > 60
[2018-05-17] MEDS ORDERED: Potassium Chloride 20 mEq ER Tab PO ONE (12:52)
[2018-05-17] MEDS: Magnesium Sulfate 1 gm in D5W 1 GM/100 ML BAG IVPB SCH ×2 (13:04→13:30)
--- NOTE | 2018-05-17 18:53 | CP.PCM.PN ---
Subjective - Date & Time of Evaluation Date of Evaluation: 05/17/18 Time of Evaluation: 17:00 - Subjective Subjective: Feels tired. Objective - Vital Signs/Intake and Output Vital Signs (last 24 hours): Temp Pulse Resp BP Pulse Ox 98.6 F 80 20 110/68 98 05/17/18 16:15 05/17/18 16:15 05/17/18 16:15 05/17/18 16:15 05/17/18 16:06 Intake and Output: 05/17/18 05/17/18 06:59 18:59 Intake Total 1550 287 Output Total 700 Balance 850 287 - Medications Medications: Current Medications Acetaminophen (Tylenol 325mg Tab) 650 mg PO Q6 PRN PRN Reason: Fever >100.4 F Last Admin: 05/17/18 14:59 Dose: 650 mg Acetaminophen (Tylenol 650 Mg Supp) 650 mg [place] Q6 PRN PRN Reason: Pain, moderate (4-7) Fentanyl (Duragesic) 1 patch TD Q72H [facility] Last Admin: 05/15/18 13:21 Dose: 1 patch Tobramycin Sulfate 250 mg/ (Sodium Chloride) 106.25 mls @ 100 mls/hr IV Q24H [facility] PRN Reason: Protocol Last Admin: 05/17/18 13:01 Dose: 100 mls/hr Micafungin Sodium 100 mg/ (Sodium Chloride) 100 mls @ 100 mls/hr IV Q24H [facility] PRN Reason: Protocol Last Admin: 05/17/18 08:45 Dose: 100 mls/hr Meropenem 1 gm/ Sodium (Chloride) 100 mls @ 100 mls/hr IVPB Q8H [facility] PRN Reason: Protocol Last Admin: 05/17/18 10:39 Dose: 100 mls/hr Vancomycin/Sodium Chloride (Vancomycin 1 Gm/Ns 200 Ml) 1 gm in 200 mls @ 166.6 mls/hr IVPB Q12H [facility] PRN Reason: Protocol Stop: 05/18/18 23:01 Last Admin: 05/17/18 11:00 Dose: 166.6 mls/hr Sodium Chloride (Sodium Chloride 0.9%) 1,000 mls @ 75 mls/hr IV .[id number] [facility] Last Admin: 05/17/18 12:17 Dose: Not Given Sucralfate (Carafate Tab) 1 gm PO QID [facility] Last Admin: 05/17/18 17:35 Dose: 1 gm - Labs Labs: 05/17/18 11:31 05/17/18 11:31 PT 17.3 SECONDS (9.7-12.2) H 05/08/18 18:29 INR 1.6 05/08/18 18:29 APTT 24 SECONDS (21-34) 05/08/18 18:29 - Head Exam Head Exam: ATRAUMATIC - Eye Exam Eye Exam: Normal appearance - ENT Exam ENT Exam: Mucous Membranes Dry - Respiratory Exam Respiratory Exam: NORMAL BREATHING PATTERN - Cardiovascular Exam Cardiovascular Exam: +S1, +S2 - GI/Abdominal Exam GI & Abdominal Exam: Normal Bowel Sounds Assessment and Plan (1) Pancytopenia Assessment & Plan: secondary to chemotherapy growth factor/transfusion support Status: Acute (2) Small cell lung cancer Assessment & Plan: stage IV outpatient treatment Status: Acute
--- NOTE | 2018-05-17 19:12 | CP.PCM.PN ---
Subjective - Date & Time of Evaluation Date of Evaluation: 05/17/18 Time of Evaluation: 07:30 - Subjective Subjective: clinically same Objective - Vital Signs/Intake and Output Vital Signs (last 24 hours): Temp Pulse Resp BP Pulse Ox 98.6 F 80 20 110/68 98 05/17/18 16:15 05/17/18 16:15 05/17/18 16:15 05/17/18 16:15 05/17/18 16:06 Intake and Output: 05/17/18 05/18/18 18:59 06:59 Intake Total 287 Balance 287 - Medications Medications: Current Medications Acetaminophen (Tylenol 325mg Tab) 650 mg PO Q6 PRN PRN Reason: Fever >100.4 F Last Admin: 05/17/18 14:59 Dose: 650 mg Acetaminophen (Tylenol 650 Mg Supp) 650 mg [place] Q6 PRN PRN Reason: Pain, moderate (4-7) Fentanyl (Duragesic) 1 patch TD Q72H [facility] Last Admin: 05/15/18 13:21 Dose: 1 patch Tobramycin Sulfate 250 mg/ (Sodium Chloride) 106.25 mls @ 100 mls/hr IV Q24H [facility] PRN Reason: Protocol Last Admin: 05/17/18 13:01 Dose: 100 mls/hr Micafungin Sodium 100 mg/ (Sodium Chloride) 100 mls @ 100 mls/hr IV Q24H [facility] PRN Reason: Protocol Last Admin: 05/17/18 08:45 Dose: 100 mls/hr Meropenem 1 gm/ Sodium (Chloride) 100 mls @ 100 mls/hr IVPB Q8H [facility] PRN Reason: Protocol Last Admin: 05/17/18 10:39 Dose: 100 mls/hr Vancomycin/Sodium Chloride (Vancomycin 1 Gm/Ns 200 Ml) 1 gm in 200 mls @ 166.6 mls/hr IVPB Q12H [facility] PRN Reason: Protocol Stop: 05/18/18 23:01 Last Admin: 05/17/18 11:00 Dose: 166.6 mls/hr Sodium Chloride (Sodium Chloride 0.9%) 1,000 mls @ 75 mls/hr IV .[id number] [facility] Last Admin: 05/17/18 12:17 Dose: Not Given Sucralfate (Carafate Tab) 1 gm PO QID [facility] Last Admin: 05/17/18 17:35 Dose: 1 gm - Labs Labs: 05/17/18 11:31 05/17/18 11:31 PT 17.3 SECONDS (9.7-12.2) H 05/08/18 18:29 INR 1.6 05/08/18 18:29 APTT 24 SECONDS (21-34) 05/08/18 18:29 - Constitutional Appears: Well - Head Exam Head Exam: ATRAUMATIC, NORMAL INSPECTION, NORMOCEPHALIC - Eye Exam Eye Exam: EOMI, Normal appearance, PERRL Pupil Exam: NORMAL ACCOMODATION, PERRL - ENT Exam ENT Exam: Mucous Membranes Moist, Normal Exam - Neck Exam Neck Exam: Full ROM, Normal Inspection. absent: Lymphadenopathy - Respiratory Exam Respiratory Exam: Decreased Breath Sounds - Cardiovascular Exam Cardiovascular Exam: REGULAR RHYTHM, +S1, +S2 - GI/Abdominal Exam GI & Abdominal Exam: Soft, Diminished Bowel Sounds - Rectal Exam Rectal Exam: Deferred Assessment and Plan - Assessment and Plan (Free Text) Plan: plateetls given today heme onco monitor cbc coti same mx as ordered
[2018-05-18] MEDS: Sodium Chloride 0.9% 1,000 ML IV SCH ×3 (00:58→22:16)
[2018-05-18] MEDS: Meropenem 1 GM in Sodium Chloride 0.9% 100 ML IVPB SCH ×2 (02:28→11:35)
[2018-05-18 07:30] LABS: ALBUMIN 3.3 g/dL (3.5-5.0); ALT/SGPT 42 U/L (21-72); AST/SGOT 46 U/L (17-59); BLOOD UREA NITROGEN 10 mg/dL (9-20); CALCIUM 8.7 mg/dl (8.6-10.4); GFR NON-AFRICAN AMERICAN > 60
[2018-05-18 07:34] LABS: BASO % 2.4 % (0.0-2.0); EOS % 0.8 % (0.0-4.0); HEMOGLOBIN 9.9 g/dL (12.0-18.0); LYMPH # 0.3 K/uL (1.0-4.3); LYMPH % 43.4 % (20.0-40.0); MEAN CELL VOLUME 82.3 fL (80.0-94.0); MEAN CORPUSCULAR HGB CONC 36.4 g/dL (33.0-37.0); MEAN PLATELET VOLUME 11.2 fL (7.2-11.7); MONO % 2.7 % (0.0-10.0); NEUT # 0.3 K/uL (1.8-7.0); NEUT % 50.7 % (50.0-75.0); NRBC % 0.1 % (0.0-2.0); RBC 3.32 Mil/uL (4.40-5.90); RED CELL DISTRIBUTION WIDTH 15.4 % (11.5-14.5)
[2018-05-18 07:37] LABS: WHITE BLOOD COUNT 0.6 K/uL (4.8-10.8)
[2018-05-18] MEDS: Micafungin 100 MG in Sodium Chloride 0.9% 100 ML IV SCH ×2 (08:25→10:01)
--- NOTE | 2018-05-18 09:18 | CP.PCM.PN ---
Subjective - Date & Time of Evaluation Date of Evaluation: 05/18/18 Time of Evaluation: 08:00 - Subjective Subjective: PGY-2 Med Note- Dr. Nicole Mccartney's service 62 year old male with past medical history of small cell lung cancer with mets. Patient was seen and examined at bedtime in the AM. Patient states he continues to feel tired but other [place] patient has no other complaints. Objective - Vital Signs/Intake and Output Vital Signs (last 24 hours): Temp Pulse Resp BP Pulse Ox 98 F 88 20 110/71 98 05/18/18 08:11 05/18/18 08:11 05/18/18 08:11 05/18/18 08:11 05/18/18 08:11 Intake and Output: 05/18/18 05/18/18 06:59 18:59 Intake Total 1740 Output Total 600 Balance 1140 - Medications Medications: Current Medications Acetaminophen (Tylenol 325mg Tab) 650 mg PO Q6 PRN PRN Reason: Fever >100.4 F Last Admin: 05/18/18 00:56 Dose: 650 mg Acetaminophen (Tylenol 650 Mg Supp) 650 mg [place] Q6 PRN PRN Reason: Pain, moderate (4-7) Fentanyl (Duragesic) 1 patch TD Q72H [facility] Last Admin: 05/15/18 13:21 Dose: 1 patch Tobramycin Sulfate 250 mg/ (Sodium Chloride) 106.25 mls @ 100 mls/hr IV Q24H [facility] PRN Reason: Protocol Last Admin: 05/17/18 13:01 Dose: 100 mls/hr Micafungin Sodium 100 mg/ (Sodium Chloride) 100 mls @ 100 mls/hr IV Q24H [facility] PRN Reason: Protocol Last Admin: 05/18/18 08:25 Dose: 100 mls/hr Meropenem 1 gm/ Sodium (Chloride) 100 mls @ 100 mls/hr IVPB Q8H [facility] PRN Reason: Protocol Last Admin: 05/18/18 02:28 Dose: 100 mls/hr Vancomycin/Sodium Chloride (Vancomycin 1 Gm/Ns 200 Ml) 1 gm in 200 mls @ 166.6 mls/hr IVPB Q12H [facility] PRN Reason: Protocol Stop: 05/18/18 23:01 Last Admin: 05/17/18 22:57 Dose: 166.6 mls/hr Sodium Chloride (Sodium Chloride 0.9%) 1,000 mls @ 75 mls/hr IV .[id number] [facility] Last Admin: 05/18/18 00:58 Dose: 75 mls/hr Sucralfate (Carafate Tab) 1 gm PO QID [facility] Last Admin: 05/17/18 21:33 Dose: 1 gm - Labs Labs: 05/18/18 06:48 05/18/18 06:48 PT 17.3 SECONDS (9.7-12.2) H 05/08/18 18:29 INR 1.6 05/08/18 18:29 APTT 24 SECONDS (21-34) 05/08/18 18:29 - Constitutional Appears: Chronically Ill - Head Exam Head Exam: ATRAUMATIC, NORMAL INSPECTION - Eye Exam Eye Exam: EOMI, Normal appearance - ENT Exam ENT Exam: Mucous Membranes Moist - Respiratory Exam Respiratory Exam: NORMAL BREATHING PATTERN - Cardiovascular Exam Cardiovascular Exam: REGULAR RHYTHM, +S1, +S2 - GI/Abdominal Exam GI & Abdominal Exam: Soft, Normal Bowel Sounds. absent: Tenderness - Extremities Exam Extremities Exam: Normal Inspection - Neurological Exam Neurological Exam: Alert, Awake, Oriented x3 - Psychiatric Exam Psychiatric exam: Normal Affect - Skin Skin Exam: Normal Color Assessment and Plan - Assessment and Plan (Free Text) Assessment: Pancytopenia secondary to chemotherapy adebrile blood and urine culture negative Onc Consult: Dr. Bae --> help appreciated - Spoke with Dr. Bae: patient's platelets are 4 (05/18/18) --> ordered 2 bags of platelets for transfusion Medications * Meropenem IB q8h * Tobramycin 250mg q24h started 05/09/18 * Vancomycin 1gm q12h started 05/13/18 * Micafungin 100mg IV q24h started 05/09/18 * Acyclovir 400mg po bid started 05/18/18 * Cefepime 2gm q8h started 05/18/18 * NS @75cc/hr * Granix 480mcg SC daily Small Cell Lung Cancer outpatient treatment with Oncologist, Dr. Bae All medical management per Dr. Debo Yanes PGY-2
[2018-05-18] MEDS: Vancomycin 1 gm/NS 200 ml 1 GM/200 ML BAG IVPB SCH ×2 (11:31→22:14)
--- NOTE | 2018-05-18 13:13 | CP.PCM.PN ---
Subjective - Date & Time of Evaluation Date of Evaluation: 05/18/18 Time of Evaluation: 13:00 - Subjective Subjective: dictated Objective - Vital Signs/Intake and Output Vital Signs (last 24 hours): Temp Pulse Resp BP Pulse Ox 98 F 88 20 110/71 98 05/18/18 08:11 05/18/18 08:11 05/18/18 08:11 05/18/18 08:11 05/18/18 08:11 Intake and Output: 05/18/18 05/18/18 06:59 18:59 Intake Total 1740 Output Total 600 Balance 1140 - Medications Medications: Current Medications Acetaminophen (Tylenol 325mg Tab) 650 mg PO Q6 PRN PRN Reason: Fever >100.4 F Last Admin: 05/18/18 00:56 Dose: 650 mg Acetaminophen (Tylenol 650 Mg Supp) 650 mg [place] Q6 PRN PRN Reason: Pain, moderate (4-7) Fentanyl (Duragesic) 1 patch TD Q72H [facility] Last Admin: 05/18/18 11:31 Dose: 1 patch Tobramycin Sulfate 250 mg/ (Sodium Chloride) 106.25 mls @ 100 mls/hr IV Q24H [facility] PRN Reason: Protocol Last Admin: 05/18/18 11:33 Dose: 100 mls/hr Micafungin Sodium 100 mg/ (Sodium Chloride) 100 mls @ 100 mls/hr IV Q24H [facility] PRN Reason: Protocol Last Admin: 05/18/18 10:01 Dose: Not Given Meropenem 1 gm/ Sodium (Chloride) 100 mls @ 100 mls/hr IVPB Q8H [facility] PRN Reason: Protocol Last Admin: 05/18/18 11:35 Dose: 100 mls/hr Vancomycin/Sodium Chloride (Vancomycin 1 Gm/Ns 200 Ml) 1 gm in 200 mls @ 166.6 mls/hr IVPB Q12H [facility] PRN Reason: Protocol Stop: 05/18/18 23:01 Last Admin: 05/18/18 11:31 Dose: 166.6 mls/hr Sodium Chloride (Sodium Chloride 0.9%) 1,000 mls @ 75 mls/hr IV .[id number] [facility] Last Admin: 05/18/18 00:58 Dose: 75 mls/hr Sucralfate (Carafate Tab) 1 gm PO QID [facility] Last Admin: 05/18/18 11:31 Dose: 1 gm - Labs Labs: 05/18/18 06:48 05/18/18 06:48 PT 17.3 SECONDS (9.7-12.2) H 05/08/18 18:29 INR 1.6 05/08/18 18:29 APTT 24 SECONDS (21-34) 05/08/18 18:29
[2018-05-18] MEDS ORDERED: Cefepime 2 GM in Dextrose 5% In Water 100 ML IVPB SCH (14:30)
[2018-05-18] MEDS ORDERED: Iohexol 240 (50 ml) PO ONE ×2 (16:45→17:00)
[2018-05-18] MEDS: Cefepime 2 GM in Sodium Chloride 0.9% 100 ML IVPB SCH (17:30)
--- NOTE | 2018-05-18 18:16 | PN ---
Copied To: Apple Rasmussen MD Attending MD: Apple Rasmussen MD DATE: 05/18/2018 SUBJECTIVE: The patient is seen today. He has been on multiple antibiotics; however, remains neutropenic. He complains of mild abdominal pain, otherwise he has no other problems. Denies any oral sores. Denies any headache. No chest pain. No cough. PHYSICAL EXAMINATION: VITAL SIGNS: T-max is 98, pulse 88, blood pressure 110/71, respirations are 20. HEENT: Head is atraumatic, normocephalic. Tongue is smooth. No ulcerations. NECK: Supple. JVP is flat. LUNGS: Clear. HEART: S1 and S2 regular. ABDOMEN: Soft. Bowel sounds are gurgling. EXTREMITIES: Have no edema. LABORATORY DATA: Labs are noted. Labs show white count is 0.6, hemoglobin 9.9, hematocrit 27.3, platelets are 4. The nurse tells me that he did get platelets and , so he is really thrombocytopenic. Creatinine is 0.4. MEDICATIONS: He remains on multiple antibiotics including meropenem, Mycamine, tobramycin, and vancomycin. I do not see the acyclovir, which might have . We will leave him on that too and we will follow. Acyclovir IV, maybe p.o. might be just good enough if we can give that and we will follow. 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 We will follow. Apple Rasmussen MD
--- NOTE | 2018-05-18 19:16 | CP.PCM.PN ---
Subjective - Date & Time of Evaluation Date of Evaluation: 05/18/18 Time of Evaluation: 07:15 - Subjective Subjective: clinically same Objective - Vital Signs/Intake and Output Vital Signs (last 24 hours): Temp Pulse Resp BP Pulse Ox 98 F 86 20 105/67 97 05/18/18 16:00 05/18/18 16:00 05/18/18 16:00 05/18/18 16:00 05/18/18 16:00 Intake and Output: 05/18/18 05/19/18 18:59 06:59 Intake Total 200 Balance 200 - Medications Medications: Current Medications Acetaminophen (Tylenol 325mg Tab) 650 mg PO Q6 PRN PRN Reason: Fever >100.4 F Last Admin: 05/18/18 00:56 Dose: 650 mg Acetaminophen (Tylenol 650 Mg Supp) 650 mg [place] Q6 PRN PRN Reason: Pain, moderate (4-7) Acyclovir (Zovirax) 400 mg PO BID [facility] PRN Reason: Protocol Last Admin: 05/18/18 17:51 Dose: 400 mg Fentanyl (Duragesic) 1 patch TD Q72H [facility] Last Admin: 05/18/18 14:31 Dose: Not Given Tobramycin Sulfate 250 mg/ (Sodium Chloride) 106.25 mls @ 100 mls/hr IV Q24H [facility] PRN Reason: Protocol Last Admin: 05/18/18 11:33 Dose: 100 mls/hr Micafungin Sodium 100 mg/ (Sodium Chloride) 100 mls @ 100 mls/hr IV Q24H [facility] PRN Reason: Protocol Last Admin: 05/18/18 10:01 Dose: Not Given Vancomycin/Sodium Chloride (Vancomycin 1 Gm/Ns 200 Ml) 1 gm in 200 mls @ 166.6 mls/hr IVPB Q12H [facility] PRN Reason: Protocol Stop: 05/18/18 23:01 Last Admin: 05/18/18 11:31 Dose: 166.6 mls/hr Sodium Chloride (Sodium Chloride 0.9%) 1,000 mls @ 75 mls/hr IV .[id number] [facility] Last Admin: 05/18/18 14:55 Dose: Not Given Cefepime HCl 2 gm/ Sodium (Chloride) 100 mls @ 100 mls/hr IVPB Q8H [facility] PRN Reason: Protocol Last Admin: 05/18/18 17:30 Dose: 100 mls/hr Sucralfate (Carafate Tab) 1 gm PO QID [facility] Last Admin: 05/18/18 17:47 Dose: 1 gm - Labs Labs: 05/18/18 06:48 05/18/18 06:48 PT 17.3 SECONDS (9.7-12.2) H 05/08/18 18:29 INR 1.6 05/08/18 18:29 APTT 24 SECONDS (21-34) 05/08/18 18:29 - Constitutional Appears: Well - Head Exam Head Exam: ATRAUMATIC, NORMAL INSPECTION, NORMOCEPHALIC - Eye Exam Eye Exam: EOMI, Normal appearance, PERRL Pupil Exam: NORMAL ACCOMODATION, PERRL - ENT Exam ENT Exam: Mucous Membranes Moist, Normal Exam - Neck Exam Neck Exam: Full ROM, Normal Inspection. absent: Lymphadenopathy - Respiratory Exam Respiratory Exam: Decreased Breath Sounds - Cardiovascular Exam Cardiovascular Exam: REGULAR RHYTHM, +S1, +S2 - GI/Abdominal Exam GI & Abdominal Exam: Soft, Diminished Bowel Sounds - Rectal Exam Rectal Exam: Deferred
[2018-05-19] MEDS: Cefepime 2 GM in Sodium Chloride 0.9% 100 ML IVPB SCH ×3 (00:39→18:12)
--- NOTE | 2018-05-19 10:26 | CP.PCM.PN ---
Subjective - Date & Time of Evaluation Date of Evaluation: 05/19/18 Time of Evaluation: 07:15 - Subjective Subjective: clinically same Objective - Vital Signs/Intake and Output Vital Signs (last 24 hours): Temp Pulse Resp BP Pulse Ox 98.1 F 90 20 101/61 98 05/19/18 08:03 05/19/18 08:03 05/19/18 08:03 05/19/18 08:03 05/19/18 08:03 Intake and Output: 05/19/18 05/19/18 06:59 18:59 Intake Total 2246 Balance 2246 - Medications Medications: Current Medications Acetaminophen (Tylenol 325mg Tab) 650 mg PO Q6 PRN PRN Reason: Fever >100.4 F Last Admin: 05/18/18 00:56 Dose: 650 mg Acetaminophen (Tylenol 650 Mg Supp) 650 mg [place] Q6 PRN PRN Reason: Pain, moderate (4-7) Acyclovir (Zovirax) 400 mg PO BID AWILDA PRN Reason: Protocol Last Admin: 05/18/18 17:51 Dose: 400 mg Fentanyl (Duragesic) 1 patch TD Q72H [facility] Last Admin: 05/18/18 14:31 Dose: Not Given Tobramycin Sulfate 250 mg/ (Sodium Chloride) 106.25 mls @ 100 mls/hr IV Q24H [facility]ILDA PRN Reason: Protocol Last Admin: 05/18/18 11:33 Dose: 100 mls/hr Micafungin Sodium 100 mg/ (Sodium Chloride) 100 mls @ 100 mls/hr IV Q24H AWILDA PRN Reason: Protocol Last Admin: 05/18/18 10:01 Dose: Not Given Sodium Chloride (Sodium Chloride 0.9%) 1,000 mls @ 75 mls/hr IV .[id number] [facility] Last Admin: 05/18/18 22:16 Dose: 75 mls/hr Cefepime HCl 2 gm/ Sodium (Chloride) 100 mls @ 100 mls/hr IVPB Q8H AWILDA PRN Reason: Protocol Last Admin: 05/19/18 00:39 Dose: 100 mls/hr Sucralfate (Carafate Tab) 1 gm PO QID [facility] Last Admin: 05/18/18 21:24 Dose: 1 gm - Labs Labs: 05/18/18 06:48 05/18/18 06:48 PT 17.3 SECONDS (9.7-12.2) H 05/08/18 18:29 INR 1.6 05/08/18 18:29 APTT 24 SECONDS (21-34) 05/08/18 18:29 - Constitutional Appears: Well - Head Exam Head Exam: ATRAUMATIC, NORMAL INSPECTION, NORMOCEPHALIC - Eye Exam Eye Exam: EOMI, Normal appearance, PERRL Pupil Exam: NORMAL ACCOMODATION, PERRL - ENT Exam ENT Exam: Mucous Membranes Moist, Normal Exam - Neck Exam Neck Exam: Full ROM, Normal Inspection. absent: Lymphadenopathy - Respiratory Exam Respiratory Exam: Decreased Breath Sounds - Cardiovascular Exam Cardiovascular Exam: REGULAR RHYTHM, +S1, +S2 - GI/Abdominal Exam GI & Abdominal Exam: Soft, Diminished Bowel Sounds - Rectal Exam Rectal Exam: Deferred
[2018-05-19] MEDS: Micafungin 100 MG in Sodium Chloride 0.9% 100 ML IV SCH (11:06)
[2018-05-19 12:41] LABS: BASO % 1.2 % (0.0-2.0); EOS % 0.4 % (0.0-4.0); LYMPH # 0.3 K/uL (1.0-4.3); LYMPH % 34.1 % (20.0-40.0); MEAN PLATELET VOLUME 9.3 fL (7.2-11.7); MONO # 0.1 K/uL (0.0-0.8); MONO % 5.7 % (0.0-10.0); NEUT # 0.5 K/uL (1.8-7.0); NEUT % 58.6 % (50.0-75.0); NRBC % 0.3 % (0.0-2.0); RED CELL DISTRIBUTION WIDTH 15.5 % (11.5-14.5)
[2018-05-19 12:59] LABS: HEMOGLOBIN 8.9 g/dL (12.0-18.0); MEAN CELL VOLUME 81.7 fL (80.0-94.0); MEAN CORPUSCULAR HGB CONC 35.5 g/dL (33.0-37.0); RBC 3.06 Mil/uL (4.40-5.90); WHITE BLOOD COUNT 0.9 K/uL (4.8-10.8)
[2018-05-19 13:01] LABS: ALB/GLOB RATIO 1.1 (1.0-2.1); ALBUMIN 3.3 g/dL (3.5-5.0); ALT/SGPT 32 U/L (21-72); AST/SGOT 43 U/L (17-59); BLOOD UREA NITROGEN 10 mg/dL (9-20); CALCIUM 8.5 mg/dl (8.6-10.4); GFR NON-AFRICAN AMERICAN > 60
[2018-05-19] MEDS: Sodium Chloride 0.9% 1,000 ML IV SCH ×2 (15:43→18:16)
--- NOTE | 2018-05-19 17:48 | CT ---
Date of service: 05/18/2018 PROCEDURE: CT chest abdomen pelvis HISTORY: Abdominal pain neutropenia COMPARISON: Comparison made with CT scan chest and pelvis 03/29/2018. TECHNIQUE: Contiguous helical/ transaxial sections of the chest and pelvis performed without oral or intravenous contrast material. Additional 2D sagittal and coronal reformats generated This CT exam was performed using one or more of the following dose reduction techniques: Automated exposure control, adjustment of the mA and/or kV according to patient size, and/or use of iterative reconstruction technique. Radiation dose: Total exam DLP = 428.88 mGy-cm. FINDINGS: CT CHEST WITHOUT CONTRAST: LUNGS: Paraseptal emphysematous changes are again seen. Mild ground-glass opacities throughout the the upper and lower lobes bilaterally suggestive of mild pulmonary venous of the congestion. Numerous parenchymal nodules are seen throughout both lower lobes and right upper lobe possibly representing metastatic disease. Clinical correlation recommended. . To metastatic disease. . Small area of consolidation in the right posterior sulcus has increased from prior exam. On MEDIASTINUM: Heart appears enlarged. No significant pericardial effusion. LYMPH NODES: Multiple small nonspecific mediastinal lymph nodes are present. Evaluation for hilar adenopathy limited due to the lack of circulating intravenous contrast material. PLEURA: Unremarkable. No pneumothorax. No pleural fluid. BONES: The numerous as sclerotic lesions throughout the thoracic and lumbar spine again noted consistent with blastic metastases. Unremarkable. OTHER FINDINGS: None. CT ABDOMEN AND PELVIS: LIVER: There are multiple on ill-defined low-attenuation lesions scattered throughout the hepatic parenchyma consistent with metastatic disease small elliptical shaped calcification within the right lobe of the liver. GALLBLADDER AND BILE DUCTS: Gallbladder appears contracted. PANCREAS: Bulky appearance of the pancreatic head. SPLEEN: Unremarkable. ADRENALS: Unremarkable. No mass. KIDNEYS AND URETERS: Unremarkable. No hydronephrosis. No solid mass. VASCULATURE: Unremarkable. No aortic aneurysm. BOWEL: Evaluation of the bowel is somewhat limited due to incomplete opacification. Stomach is distended with food debris liquid air and contrast material. Visualized loops of small bowel exhibit normal contour and caliber. No evidence of acute mechanical small bowel obstruction. Oral contrast material has extended into the colon to the level of the rectum. No definitive evidence of mural wall thickening. APPENDIX: Normal-appearing appendix PERITONEUM: Unremarkable. No free fluid. No free air. Small bilateral fat containing inguinal hernias. Small fat containing umbilical hernia. LYMPH NODES: Multiple enlarged jadyn hepatis and epigastric lymph nodes again noted. . Multiple small retroperitoneal lymph nodes are present. BLADDER: Urinary bladder is incompletely distended which accounts for thick-walled appearance however muscular hypertrophy presumably contributes. 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 OTHER FINDINGS: None. IMPRESSION: Multiple bilateral parenchymal nodules consistent with metastatic deposits both lungs. There is a small area of consolidation right posterior sulcus. Findings suggest mild pulmonary venous congestion. Multiple low-attenuation lesions scattered throughout the hepatic parenchyma consistent with metastases. Jadyn hepatis and at the thoracic lymphadenopathy. Diffuse sclerotic bone metastases. The slightly bulky appearing pancreatic head.
--- NOTE | 2018-05-19 19:40 | CP.PCM.PN ---
Subjective - Date & Time of Evaluation Date of Evaluation: 05/18/18 Time of Evaluation: 18:00 - Subjective Subjective: Feels better. Objective - Vital Signs/Intake and Output Vital Signs (last 24 hours): Temp Pulse Resp BP Pulse Ox 98.1 F 88 20 106/66 97 05/19/18 16:00 05/19/18 16:00 05/19/18 16:00 05/19/18 16:00 05/19/18 16:00 Intake and Output: 05/19/18 05/20/18 18:59 06:59 Intake Total 600 Balance 600 - Medications Medications: Current Medications Acetaminophen (Tylenol 325mg Tab) 650 mg PO Q6 PRN PRN Reason: Fever >100.4 F Last Admin: 05/18/18 00:56 Dose: 650 mg Acetaminophen (Tylenol 650 Mg Supp) 650 mg IN Q6 PRN PRN Reason: Pain, moderate (4-7) Acyclovir (Zovirax) 400 mg PO BID AWILDA PRN Reason: Protocol Last Admin: 05/19/18 18:08 Dose: 400 mg Demeclocycline HCl (Declomycin) 300 mg PO 0800,1999 AWILDA PRN Reason: Protocol Fentanyl (Duragesic) 1 patch TD Q72H [facility] Last Admin: 05/19/18 15:38 Dose: 1 patch Tobramycin Sulfate 250 mg/ (Sodium Chloride) 106.25 mls @ 100 mls/hr IV Q24H AWILDA PRN Reason: Protocol Last Admin: 05/19/18 11:55 Dose: 100 mls/hr Micafungin Sodium 100 mg/ (Sodium Chloride) 100 mls @ 100 mls/hr IV Q24H [facility]ILDA PRN Reason: Protocol Last Admin: 05/19/18 11:06 Dose: 100 mls/hr Sodium Chloride (Sodium Chloride 0.9%) 1,000 mls @ 75 mls/hr IV .[id number] [facility] Last Admin: 05/19/18 18:16 Dose: 75 mls/hr Cefepime HCl 2 gm/ Sodium (Chloride) 100 mls @ 100 mls/hr IVPB Q8H [facility]ILDA PRN Reason: Protocol Last Admin: 05/19/18 18:12 Dose: 100 mls/hr Sodium Chloride (Sodium Chloride Tab) 1 gm PO Q12 [facility] Sucralfate (Carafate Tab) 1 gm PO QID [facility] Last Admin: 05/19/18 18:08 Dose: 1 gm Tramadol HCl (Ultram) 50 mg PO Q6 PRN PRN Reason: Pain, moderate (4-7) Last Admin: 05/19/18 15:37 Dose: 50 mg - Labs Labs: 05/19/18 12:29 05/19/18 12:29 PT 17.3 SECONDS (9.7-12.2) H 05/08/18 18:29 INR 1.6 05/08/18 18:29 APTT 24 SECONDS (21-34) 05/08/18 18:29 - Head Exam Head Exam: ATRAUMATIC - Eye Exam Eye Exam: Normal appearance - ENT Exam ENT Exam: Mucous Membranes Dry - Respiratory Exam Respiratory Exam: NORMAL BREATHING PATTERN - Cardiovascular Exam Cardiovascular Exam: +S1, +S2 - GI/Abdominal Exam GI & Abdominal Exam: Normal Bowel Sounds Assessment and Plan (1) Pancytopenia Assessment & Plan: secondary to chemotherapy on growth factor/transfusion support Status: Acute (2) Small cell lung cancer Assessment & Plan: stage IV outpatient chemotherapy Status: Acute
--- NOTE | 2018-05-19 19:41 | CP.PCM.PN ---
Subjective - Date & Time of Evaluation Date of Evaluation: 05/19/18 Time of Evaluation: 16:00 - Subjective Subjective: No complaints, daughter at bedside. For 1 bag platelets today. Objective - Vital Signs/Intake and Output Vital Signs (last 24 hours): Temp Pulse Resp BP Pulse Ox 98.1 F 88 20 106/66 97 05/19/18 16:00 05/19/18 16:00 05/19/18 16:00 05/19/18 16:00 05/19/18 16:00 Intake and Output: 05/19/18 05/20/18 18:59 06:59 Intake Total 600 Balance 600 - Medications Medications: Current Medications Acetaminophen (Tylenol 325mg Tab) 650 mg PO Q6 PRN PRN Reason: Fever >100.4 F Last Admin: 05/18/18 00:56 Dose: 650 mg Acetaminophen (Tylenol 650 Mg Supp) 650 mg [place] Q6 PRN PRN Reason: Pain, moderate (4-7) Acyclovir (Zovirax) 400 mg PO BID AWILDA PRN Reason: Protocol Last Admin: 05/19/18 18:08 Dose: 400 mg Demeclocycline HCl (Declomycin) 300 mg PO 0800,2000 AWILDA PRN Reason: Protocol Fentanyl (Duragesic) 1 patch TD Q72H [facility] Last Admin: 05/19/18 15:38 Dose: 1 patch Tobramycin Sulfate 250 mg/ (Sodium Chloride) 106.25 mls @ 100 mls/hr IV Q24H [facility]IL[facility] PRN Reason: Protocol Last Admin: 05/19/18 11:55 Dose: 100 mls/hr Micafungin Sodium 100 mg/ (Sodium Chloride) 100 mls @ 100 mls/hr IV Q24H [facility]IL[facility] PRN Reason: Protocol Last Admin: 05/19/18 11:06 Dose: 100 mls/hr Sodium Chloride (Sodium Chloride 0.9%) 1,000 mls @ 75 mls/hr IV .[id number] [facility] Last Admin: 05/19/18 18:16 Dose: 75 mls/hr Cefepime HCl 2 gm/ Sodium (Chloride) 100 mls @ 100 mls/hr IVPB Q8H [facility]ILDA PRN Reason: Protocol Last Admin: 05/19/18 18:12 Dose: 100 mls/hr Sodium Chloride (Sodium Chloride Tab) 1 gm PO Q12 [facility] Sucralfate (Carafate Tab) 1 gm PO QID [facility] Last Admin: 05/19/18 18:08 Dose: 1 gm Tramadol HCl (Ultram) 50 mg PO Q6 PRN PRN Reason: Pain, moderate (4-7) Last Admin: 05/19/18 15:37 Dose: 50 mg - Labs Labs: 05/19/18 12:29 05/19/18 12:29 PT 17.3 SECONDS (9.7-12.2) H 05/08/18 18:29 INR 1.6 05/08/18 18:29 APTT 24 SECONDS (21-34) 05/08/18 18:29 - Head Exam Head Exam: ATRAUMATIC - Eye Exam Eye Exam: Normal appearance - ENT Exam ENT Exam: Mucous Membranes Dry - Respiratory Exam Respiratory Exam: NORMAL BREATHING PATTERN - Cardiovascular Exam Cardiovascular Exam: +S1, +S2 - GI/Abdominal Exam GI & Abdominal Exam: Normal Bowel Sounds Assessment and Plan (1) Pancytopenia Assessment & Plan: secondary to chemotherapy on growth factor/transfusion support Status: Acute (2) Small cell lung cancer Assessment & Plan: stage IV outpatient chemotherapy Status: Acute
--- NOTE | 2018-05-19 21:48 | CP.PCM.PN ---
Subjective - Date & Time of Evaluation Date of Evaluation: 05/19/18 Time of Evaluation: 15:00 - Subjective Subjective: dictated Objective - Vital Signs/Intake and Output Vital Signs (last 24 hours): Temp Pulse Resp BP Pulse Ox 98.1 F 88 20 106/66 97 05/19/18 16:00 05/19/18 16:00 05/19/18 16:00 05/19/18 16:00 05/19/18 16:00 Intake and Output: 05/19/18 05/20/18 18:59 06:59 Intake Total 600 600 Balance 600 600 - Medications Medications: Current Medications Acetaminophen (Tylenol 325mg Tab) 650 mg PO Q6 PRN PRN Reason: Fever >100.4 F Last Admin: 05/18/18 00:56 Dose: 650 mg Acetaminophen (Tylenol 650 Mg Supp) 650 mg [place] Q6 PRN PRN Reason: Pain, moderate (4-7) Acyclovir (Zovirax) 400 mg PO BID AWILDA PRN Reason: Protocol Last Admin: 05/19/18 18:08 Dose: 400 mg Demeclocycline HCl (Declomycin) 300 mg PO 0800,1999 AWILDA PRN Reason: Protocol Last Admin: 05/19/18 21:26 Dose: 300 mg Fentanyl (Duragesic) 1 patch TD Q72H [facility] Last Admin: 05/19/18 15:38 Dose: 1 patch Tobramycin Sulfate 250 mg/ (Sodium Chloride) 106.25 mls @ 100 mls/hr IV Q24H [facility]IL[facility] PRN Reason: Protocol Last Admin: 05/19/18 11:55 Dose: 100 mls/hr Micafungin Sodium 100 mg/ (Sodium Chloride) 100 mls @ 100 mls/hr IV Q24H [facility]ILDA PRN Reason: Protocol Last Admin: 05/19/18 11:06 Dose: 100 mls/hr Sodium Chloride (Sodium Chloride 0.9%) 1,000 mls @ 75 mls/hr IV .[id number] [facility] Last Admin: 05/19/18 18:16 Dose: 75 mls/hr Cefepime HCl 2 gm/ Sodium (Chloride) 100 mls @ 100 mls/hr IVPB Q8H AWILDA PRN Reason: Protocol Last Admin: 05/19/18 18:12 Dose: 100 mls/hr Sodium Chloride (Sodium Chloride Tab) 1 gm PO Q12 [facility] Last Admin: 05/19/18 21:25 Dose: 1 gm Sucralfate (Carafate Tab) 1 gm PO QID [facility] Last Admin: 05/19/18 18:08 Dose: 1 gm Tramadol HCl (Ultram) 50 mg PO Q6 PRN PRN Reason: Pain, moderate (4-7) Last Admin: 05/19/18 15:37 Dose: 50 mg - Labs Labs: 05/19/18 12:29 05/19/18 12:29 PT 17.3 SECONDS (9.7-12.2) H 05/08/18 18:29 INR 1.6 05/08/18 18:29 APTT 24 SECONDS (21-34) 05/08/18 18:29
--- NOTE | 2018-05-20 00:10 | PN ---
Copied To: Apple Rasmussen MD Attending MD: Apple Rasmussen MD DATE: 05/19/2018 INFECTIOUS DISEASE FOLLOWUP SUBJECTIVE: The patient is awake, alert. He is in no distress. His daughter was trying to feed him. He denies any complaints. PHYSICAL EXAMINATION: VITAL SIGNS: T-max is 98.1, pulse is 88, blood pressure 106/66, respirations are 20. HEENT: Head is atraumatic, normocephalic. Tongue is moist. NECK: Supple. LUNGS: Clear. No crackles or rales present. HEART: S1, S2 are regular. ABDOMEN: Soft, nontender. No guarding, no rigidity present. EXTREMITIES: No edema. LABORATORY DATA: His white count today is 0.9; hemoglobin is 8.9; hematocrit 25; platelet count is 10, is low. He is going to get a bag of platelets according to Dr. Bae. ASSESSMENT AND PLAN: I had ordered CAT scan of his body just because he remained pancytopenic. CAT scan of the abdomen, pelvis and chest reveals impression is multiple bilateral parenchymal nodules consistent with metastatic deposit in both lungs. There is a small area of consolidation to right posterior sulcus. Findings suggest mild pulmonary venous congestion, multiple low-attenuation lesion scattered throughout the hepatic parenchyma consistent with metastatic lino hepatis and thoracic lymph adenopathy, diffuse sclerosis, bony metastasis. There is slight bulky appearing pancreatic head. So you know, he has multiple metastases from the lung cancer and remains on multiple medications with pancytopenia. Prognosis is cautious. I want to make sure his antibiotics and antiviral . We will follow. He is on acyclovir, cefepime. He is on demeclocycline. He is on micafungin, and he is on tobramycin. I would like to take away the tobramycin as he has been on it long, but cannot do it unless his white count increases. Apple Rasmussen MD
[2018-05-20] MEDS: Cefepime 2 GM in Sodium Chloride 0.9% 100 ML IVPB SCH ×3 (00:27→18:29)
[2018-05-20] MEDS: Sodium Chloride 0.9% 1,000 ML IV SCH ×2 (05:11→22:10)
[2018-05-20 08:41] LABS: BASO % 0.8 % (0.0-2.0); EOS % 0.2 % (0.0-4.0); LYMPH # 0.3 K/uL (1.0-4.3); LYMPH % 26.6 % (20.0-40.0); MEAN PLATELET VOLUME 10.1 fL (7.2-11.7); MONO # 0.1 K/uL (0.0-0.8); MONO % 4.7 % (0.0-10.0); NEUT # 0.7 K/uL (1.8-7.0); NEUT % 67.7 % (50.0-75.0); NRBC % 0.1 % (0.0-2.0); RED CELL DISTRIBUTION WIDTH 14.9 % (11.5-14.5)
[2018-05-20 09:03] LABS: ALBUMIN 3.2 g/dL (3.5-5.0); ALT/SGPT 35 U/L (21-72); AST/SGOT 43 U/L (17-59); BLOOD UREA NITROGEN 9 mg/dL (9-20); CALCIUM 8.6 mg/dl (8.6-10.4); GFR NON-AFRICAN AMERICAN > 60
[2018-05-20 09:05] LABS: WHITE BLOOD COUNT 1.1 K/uL (4.8-10.8)
[2018-05-20 09:06] LABS: HEMOGLOBIN 8.8 g/dL (12.0-18.0); MEAN CELL VOLUME 82.1 fL (80.0-94.0); MEAN CORPUSCULAR HGB CONC 35.5 g/dL (33.0-37.0); RBC 2.94 Mil/uL (4.40-5.90)
[2018-05-20] MEDS: Micafungin 100 MG in Sodium Chloride 0.9% 100 ML IV SCH (09:30)
--- NOTE | 2018-05-20 12:43 | CP.PCM.PN ---
Subjective - Date & Time of Evaluation Date of Evaluation: 05/20/18 Time of Evaluation: 07:15 - Subjective Subjective: clinically same Objective - Vital Signs/Intake and Output Vital Signs (last 24 hours): Temp Pulse Resp BP Pulse Ox 98.2 F 90 20 102/62 98 05/20/18 08:00 05/20/18 08:00 05/20/18 08:00 05/20/18 08:00 05/20/18 08:00 Intake and Output: 05/20/18 05/20/18 06:59 18:59 Intake Total 1696 Balance 1696 - Medications Medications: Current Medications Acetaminophen (Tylenol 325mg Tab) 650 mg PO Q6 PRN PRN Reason: Fever >100.4 F Last Admin: 05/18/18 00:56 Dose: 650 mg Acetaminophen (Tylenol 650 Mg Supp) 650 mg [place] Q6 PRN PRN Reason: Pain, moderate (4-7) Acyclovir (Zovirax) 400 mg PO BID AWILDA PRN Reason: Protocol Last Admin: 05/20/18 10:55 Dose: 400 mg Demeclocycline HCl (Declomycin) 300 mg PO 0800,1999 AWIL[facility] PRN Reason: Protocol Last Admin: 05/20/18 08:35 Dose: 300 mg Fentanyl (Duragesic) 1 patch TD Q72H [facility] Last Admin: 05/19/18 15:38 Dose: 1 patch Tobramycin Sulfate 250 mg/ (Sodium Chloride) 106.25 mls @ 100 mls/hr IV Q24H [facility] PRN Reason: Protocol Last Admin: 05/20/18 11:30 Dose: 100 mls/hr Micafungin Sodium 100 mg/ (Sodium Chloride) 100 mls @ 100 mls/hr IV Q24H [facility] PRN Reason: Protocol Last Admin: 05/20/18 09:30 Dose: 100 mls/hr Sodium Chloride (Sodium Chloride 0.9%) 1,000 mls @ 75 mls/hr IV .[id number] [facility] Last Admin: 05/20/18 05:11 Dose: Not Given Cefepime HCl 2 gm/ Sodium (Chloride) 100 mls @ 100 mls/hr IVPB Q8H [facility] PRN Reason: Protocol Last Admin: 05/20/18 08:00 Dose: 100 mls/hr Sodium Chloride (Sodium Chloride Tab) 1 gm PO Q12 [facility] Last Admin: 05/20/18 10:00 Dose: 1 gm Sucralfate (Carafate Tab) 1 gm PO QID [facility] Last Admin: 05/20/18 10:55 Dose: 1 gm Tramadol HCl (Ultram) 50 mg PO Q6 PRN PRN Reason: Pain, moderate (4-7) Last Admin: 05/19/18 15:37 Dose: 50 mg - Labs Labs: 05/20/18 08:07 05/20/18 08:07 PT 17.3 SECONDS (9.7-12.2) H 05/08/18 18:29 INR 1.6 05/08/18 18:29 APTT 24 SECONDS (21-34) 05/08/18 18:29 - Constitutional Appears: Well - Head Exam Head Exam: ATRAUMATIC, NORMAL INSPECTION, NORMOCEPHALIC - Eye Exam Eye Exam: EOMI, Normal appearance, PERRL Pupil Exam: NORMAL ACCOMODATION, PERRL - ENT Exam ENT Exam: Mucous Membranes Moist, Normal Exam - Neck Exam Neck Exam: Full ROM, Normal Inspection. absent: Lymphadenopathy - Respiratory Exam Respiratory Exam: Decreased Breath Sounds - Cardiovascular Exam Cardiovascular Exam: REGULAR RHYTHM, +S1, +S2 - GI/Abdominal Exam GI & Abdominal Exam: Soft, Diminished Bowel Sounds - Rectal Exam Rectal Exam: Deferred
[2018-05-20] MEDS ORDERED: Potassium Chloride 10 mEq ER Tab PO SCH (14:30)
[2018-05-20] MEDS: Potassium Chloride 20 mEq ER Tab PO SCH (14:50)
--- NOTE | 2018-05-20 21:03 | CP.PCM.PN ---
Subjective - Date & Time of Evaluation Date of Evaluation: 05/20/18 Time of Evaluation: 12:40 - Subjective Subjective: dictated Objective - Vital Signs/Intake and Output Vital Signs (last 24 hours): Temp Pulse Resp BP Pulse Ox 98.4 F 92 H 20 104/69 98 05/20/18 15:15 05/20/18 15:15 05/20/18 15:15 05/20/18 15:15 05/20/18 08:00 Intake and Output: 05/20/18 05/21/18 18:59 06:59 Intake Total 1465 800 Balance 1465 800 - Medications Medications: Current Medications Acetaminophen (Tylenol 325mg Tab) 650 mg PO Q6 PRN PRN Reason: Fever >100.4 F Last Admin: 05/18/18 00:56 Dose: 650 mg Acetaminophen (Tylenol 650 Mg Supp) 650 mg [place] Q6 PRN PRN Reason: Pain, moderate (4-7) Acyclovir (Zovirax) 400 mg PO BID [facility]IL[facility] PRN Reason: Protocol Last Admin: 05/20/18 18:29 Dose: 400 mg Demeclocycline HCl (Declomycin) 300 mg PO 0800,1999 [facility] PRN Reason: Protocol Last Admin: 05/20/18 08:35 Dose: 300 mg Fentanyl (Duragesic) 1 patch TD Q72H [facility] Last Admin: 05/19/18 15:38 Dose: 1 patch Tobramycin Sulfate 250 mg/ (Sodium Chloride) 106.25 mls @ 100 mls/hr IV Q24H [facility] PRN Reason: Protocol Last Admin: 05/20/18 11:30 Dose: 100 mls/hr Micafungin Sodium 100 mg/ (Sodium Chloride) 100 mls @ 100 mls/hr IV Q24H [facility] PRN Reason: Protocol Last Admin: 05/20/18 09:30 Dose: 100 mls/hr Sodium Chloride (Sodium Chloride 0.9%) 1,000 mls @ 75 mls/hr IV .[id number] [facility] Last Admin: 05/20/18 05:11 Dose: Not Given Cefepime HCl 2 gm/ Sodium (Chloride) 100 mls @ 100 mls/hr IVPB Q8H [facility] PRN Reason: Protocol Last Admin: 05/20/18 18:29 Dose: 100 mls/hr Potassium Chloride (K-Dur 20 Meq Er Tab) 40 meq PO BRK [facility] Last Admin: 05/20/18 14:50 Dose: 40 meq Sodium Chloride (Sodium Chloride Tab) 1 gm PO Q12 [facility] Last Admin: 05/20/18 10:00 Dose: 1 gm Sucralfate (Carafate Tab) 1 gm PO QID [facility] Last Admin: 05/20/18 18:28 Dose: 1 gm Tramadol HCl (Ultram) 50 mg PO Q6 PRN PRN Reason: Pain, moderate (4-7) Last Admin: 05/19/18 15:37 Dose: 50 mg - Labs Labs: 05/20/18 08:07 05/20/18 08:07 PT 17.3 SECONDS (9.7-12.2) H 05/08/18 18:29 INR 1.6 05/08/18 18:29 APTT 24 SECONDS (21-34) 05/08/18 18:29
[2018-05-20] MEDS: Acyclovir 500 MG in Sodium Chloride 0.9% 100 ML IV SCH (22:22)
[2018-05-21] MEDS: Cefepime 2 GM in Sodium Chloride 0.9% 100 ML IVPB SCH ×3 (00:47→16:52)
--- NOTE | 2018-05-21 01:40 | PN ---
Copied To: Apple Rasmussen MD Attending MD: Apple Rasmussen MD DATE: 05/20/2018 INFECTIOUS DISEASE FOLLOWUP SUBJECTIVE: The patient is awake and alert. He was seen today. There were no complaints. He wanted to go for #2 as he was. PHYSICAL EXAMINATION: VITAL SIGNS: Pulse was 92, blood pressure 104/69, and respirations are 20. HEENT: Head is atraumatic, normocephalic. NECK: Supple. LUNGS: Clear. No crackles or rales heard. HEART: S1, S2 are regular. ABDOMEN: Soft, nontender. No guarding, no rigidity present. EXTREMITIES: Remain without any edema. LABORATORY DATA: WBC was 1.1 today, hemoglobin 8.9, hematocrit 24.1, and platelet count is 5000, still remains very low. He has no rashes. MEDICATIONS: He is on acyclovir. He is on cefepime 2 g every 8 hours. He is on micafungin. He is on tobramycin. He is on acyclovir p.o. I think, I am going to put acyclovir IV. He is on demeclocycline but that as he came with low sodium. ASSESSMENT AND PLAN: The patient remains still pancytopenic. He is on multiple antibiotics. He is still with thrombocytopenia and low white blood cell count. We will follow. Apple Rasmussen MD
[2018-05-21] MEDS: Acyclovir 500 MG in Sodium Chloride 0.9% 100 ML IV SCH ×3 (04:28→20:33)
[2018-05-21 07:50] LABS: BASO % 0.6 % (0.0-2.0); EOS % 0.2 % (0.0-4.0); LYMPH # 0.3 K/uL (1.0-4.3); LYMPH % 21.7 % (20.0-40.0); MEAN PLATELET VOLUME 11.6 fL (7.2-11.7); MONO # 0.1 K/uL (0.0-0.8); NEUT # 1.2 K/uL (1.8-7.0); NEUT % 73.5 % (50.0-75.0); NRBC % 0.1 % (0.0-2.0); RBC 2.65 Mil/uL (4.40-5.90); RED CELL DISTRIBUTION WIDTH 14.7 % (11.5-14.5)
[2018-05-21 08:09] LABS: WHITE BLOOD COUNT 1.6 K/uL (4.8-10.8)
[2018-05-21 08:10] LABS: HEMOGLOBIN 7.1 g/dL (12.0-18.0); MEAN CELL VOLUME 82.4 fL (80.0-94.0); MEAN CORPUSCULAR HEMOGLOBIN 28.7 pg (27.0-31.0); MEAN CORPUSCULAR HGB CONC 34.9 g/dL (33.0-37.0)
[2018-05-21] MEDS: Potassium Chloride 20 mEq ER Tab PO SCH (08:37)
[2018-05-21] MEDS: Sodium Chloride 0.9% 1,000 ML IV SCH (08:39)
[2018-05-21] MEDS: Micafungin 100 MG in Sodium Chloride 0.9% 100 ML IV SCH (08:56)
--- NOTE | 2018-05-21 15:34 | CP.PCM.PN ---
Subjective - Date & Time of Evaluation Date of Evaluation: 05/21/18 Time of Evaluation: 07:15 - Subjective Subjective: clinically same Objective - Vital Signs/Intake and Output Vital Signs (last 24 hours): Temp Pulse Resp BP Pulse Ox 98.5 F 90 20 102/65 97 05/21/18 15:00 05/21/18 15:00 05/21/18 15:00 05/21/18 15:00 05/21/18 07:55 Intake and Output: 05/21/18 05/21/18 06:59 18:59 Intake Total 1600 0 Balance 1600 0 - Medications Medications: Current Medications Acetaminophen (Tylenol 325mg Tab) 650 mg PO Q6 PRN PRN Reason: Fever >100.4 F Last Admin: 05/18/18 00:56 Dose: 650 mg Acetaminophen (Tylenol 650 Mg Supp) 650 mg IN Q6 PRN PRN Reason: Pain, moderate (4-7) Demeclocycline HCl (Declomycin) 300 mg PO 0800,1999 [facility] PRN Reason: Protocol Last Admin: 05/21/18 08:38 Dose: 300 mg Fentanyl (Duragesic) 1 patch TD Q72H [facility] Last Admin: 05/19/18 15:38 Dose: 1 patch Tobramycin Sulfate 250 mg/ (Sodium Chloride) 106.25 mls @ 100 mls/hr IV Q24H [facility] PRN Reason: Protocol Last Admin: 05/21/18 10:28 Dose: 100 mls/hr Micafungin Sodium 100 mg/ (Sodium Chloride) 100 mls @ 100 mls/hr IV Q24H [facility] PRN Reason: Protocol Last Admin: 05/21/18 08:56 Dose: 100 mls/hr Cefepime HCl 2 gm/ Sodium (Chloride) 100 mls @ 100 mls/hr IVPB Q8H [facility] PRN Reason: Protocol Last Admin: 05/21/18 08:37 Dose: 100 mls/hr Acyclovir 500 mg/ Sodium (Chloride) 100 mls @ 100 mls/hr IV Q8H [facility] PRN Reason: Protocol Last Admin: 05/21/18 14:08 Dose: Not Given Potassium Chloride (K-Dur 20 Meq Er Tab) 40 meq PO BRK [facility] Last Admin: 05/21/18 08:37 Dose: 40 meq Sodium Chloride (Sodium Chloride Tab) 1 gm PO Q12 [facility] Last Admin: 05/21/18 10:29 Dose: 1 gm Sucralfate (Carafate Tab) 1 gm PO QID [facility] Last Admin: 05/21/18 14:35 Dose: 1 gm Tramadol HCl (Ultram) 50 mg PO Q6 PRN PRN Reason: Pain, moderate (4-7) Last Admin: 05/19/18 15:37 Dose: 50 mg - Labs Labs: 05/21/18 07:41 05/20/18 08:07 PT 17.3 SECONDS (9.7-12.2) H 05/08/18 18:29 INR 1.6 05/08/18 18:29 APTT 24 SECONDS (21-34) 05/08/18 18:29 - Constitutional Appears: Well - Head Exam Head Exam: ATRAUMATIC, NORMAL INSPECTION, NORMOCEPHALIC - Eye Exam Eye Exam: EOMI, Normal appearance, PERRL Pupil Exam: NORMAL ACCOMODATION, PERRL - ENT Exam ENT Exam: Mucous Membranes Moist, Normal Exam - Neck Exam Neck Exam: Full ROM, Normal Inspection. absent: Lymphadenopathy - Respiratory Exam Respiratory Exam: Decreased Breath Sounds - Cardiovascular Exam Cardiovascular Exam: REGULAR RHYTHM, +S1, +S2 - GI/Abdominal Exam GI & Abdominal Exam: Soft, Diminished Bowel Sounds - Rectal Exam Rectal Exam: Deferred
--- NOTE | 2018-05-21 19:27 | CP.PCM.PN ---
Subjective - Date & Time of Evaluation Date of Evaluation: 05/21/18 Time of Evaluation: 13:00 - Subjective Subjective: dictated Objective - Vital Signs/Intake and Output Vital Signs (last 24 hours): Temp Pulse Resp BP Pulse Ox 98.6 F 93 H 18 103/65 97 05/21/18 19:04 05/21/18 19:04 05/21/18 19:04 05/21/18 19:04 05/21/18 15:41 Intake and Output: 05/21/18 05/22/18 18:59 06:59 Intake Total 1475 Balance 1475 - Medications Medications: Current Medications Acetaminophen (Tylenol 325mg Tab) 650 mg PO Q6 PRN PRN Reason: Fever >100.4 F Last Admin: 05/18/18 00:56 Dose: 650 mg Acetaminophen (Tylenol 650 Mg Supp) 650 mg [place] Q6 PRN PRN Reason: Pain, moderate (4-7) Demeclocycline HCl (Declomycin) 300 mg PO 0800,1999 [facility]DA PRN Reason: Protocol Last Admin: 05/21/18 08:38 Dose: 300 mg Fentanyl (Duragesic) 1 patch TD Q72H [facility] [place] Last Admin: 05/19/18 15:38 Dose: 1 patch Tobramycin Sulfate 250 mg/ (Sodium Chloride) 106.25 mls @ 100 mls/hr IV Q24H [facility]ILDA PRN Reason: Protocol Last Admin: 05/21/18 10:28 Dose: 100 mls/hr Micafungin Sodium 100 mg/ (Sodium Chloride) 100 mls @ 100 mls/hr IV Q24H [facility]ILDA PRN Reason: Protocol Last Admin: 05/21/18 08:56 Dose: 100 mls/hr Cefepime HCl 2 gm/ Sodium (Chloride) 100 mls @ 100 mls/hr IVPB Q8H [facility]ILDA PRN Reason: Protocol Last Admin: 05/21/18 16:52 Dose: 100 mls/hr Acyclovir 500 mg/ Sodium (Chloride) 100 mls @ 100 mls/hr IV Q8H AWILDA PRN Reason: Protocol Last Admin: 05/21/18 14:08 Dose: Not Given Potassium Chloride (K-Dur 20 Meq Er Tab) 40 meq PO BRK [facility] Last Admin: 05/21/18 08:37 Dose: 40 meq Sodium Chloride (Sodium Chloride Tab) 1 gm PO Q12 [facility] Last Admin: 05/21/18 10:29 Dose: 1 gm Sucralfate (Carafate Tab) 1 gm PO QID [facility] Last Admin: 05/21/18 14:35 Dose: 1 gm Tramadol HCl (Ultram) 50 mg PO Q6 PRN PRN Reason: Pain, moderate (4-7) Last Admin: 05/19/18 15:37 Dose: 50 mg - Labs Labs: 05/21/18 07:41 05/20/18 08:07 PT 17.3 SECONDS (9.7-12.2) H 05/08/18 18:29 INR 1.6 05/08/18 18:29 APTT 24 SECONDS (21-34) 05/08/18 18:29
[2018-05-21 20:09] VITALS: RESP 20
--- NOTE | 2018-05-22 00:34 | PN ---
Copied To: Apple Rasmussen MD Attending MD: Apple Rasmussen MD DATE: 05/21/2018 SUBJECTIVE: The patient was awake and alert. He was getting blood transfusions. He still complains white counts remain still very low at 1.6. PHYSICAL EXAMINATION: VITAL SIGNS: T-max is 98.6, Pulse 93, blood pressure 103/65, and respirations are 18. HEENT: Head is atraumatic, normocephalic. LUNGS: Clear. HEART: S1, S2 are regular. ABDOMEN: Soft, nontender. No guarding, no rigidity present. Appears full though. EXTREMITIES: Have no edema. LABORATORY DATA: WBC is 1.6, hemoglobin 7.1, hematocrit 20.3, and platelet count is 4. Sodium has been low at 120. Creatine is 0.3. ASSESSMENT AND PLAN: I think that this ha is on demeclocycline. We did not give acyclovir today. We will need to find out that he is on micafungin. He is supposed to get at 2 o'clock, may be he will be getting blood at that time. Impression is that he remains pancytopenic. He is status post radiation. He has small cell carcinoma with mass. Prognosis remains guarded. We will follow. We will continue antibiotics as ordered. Apple Rasmussen MD
[2018-05-22] MEDS: Cefepime 2 GM in Sodium Chloride 0.9% 100 ML IVPB SCH ×3 (01:12→17:08)
[2018-05-22] MEDS: Acyclovir 500 MG in Sodium Chloride 0.9% 100 ML IV SCH ×3 (05:15→20:15)
[2018-05-22 07:50] LABS: BASO % 0.6 % (0.0-2.0); EOS % 0.1 % (0.0-4.0); HEMOGLOBIN 8.8 g/dL (12.0-18.0); LYMPH # 0.4 K/uL (1.0-4.3); LYMPH % 15.5 % (20.0-40.0); MEAN CORPUSCULAR HEMOGLOBIN 29.3 pg (27.0-31.0); MEAN CORPUSCULAR HGB CONC 36.2 g/dL (33.0-37.0); MEAN PLATELET VOLUME 9.6 fL (7.2-11.7); MONO # 0.1 K/uL (0.0-0.8); MONO % 3.3 % (0.0-10.0); NEUT # 1.9 K/uL (1.8-7.0); NEUT % 80.5 % (50.0-75.0); NRBC % 0.2 % (0.0-2.0); WHITE BLOOD COUNT 2.3 K/uL (4.8-10.8)
[2018-05-22] MEDS: Potassium Chloride 20 mEq ER Tab PO SCH ×2 (09:03→11:03)
--- NOTE | 2018-05-22 09:46 | CP.PCM.PN ---
Subjective - Date & Time of Evaluation Date of Evaluation: 05/22/18 Time of Evaluation: 08:00 - Subjective Subjective: PGY-2 Med Note- Dr. Nicole Mccartney's service 62 year old male with past medical history of small cell lung cancer with mets. Patient was seen and examined at bedtime in the AM. Patient states he continues to feel tired but other [place] patient has no other complaints. Per daughter patient was talking about events that happened a very long time ago and then he fell asleep. Patient is oriented to person and place but not time. Objective - Vital Signs/Intake and Output Vital Signs (last 24 hours): Temp Pulse Resp BP Pulse Ox 98.8 F 88 20 114/69 98 05/22/18 08:29 05/22/18 08:29 05/22/18 08:29 05/22/18 08:29 05/22/18 08:29 Intake and Output: 05/22/18 05/22/18 06:59 18:59 Intake Total 919 Output Total 1300 Balance -381 - Medications Medications: Current Medications Acetaminophen (Tylenol 325mg Tab) 650 mg PO Q6 PRN PRN Reason: Fever >100.4 F Last Admin: 05/18/18 00:56 Dose: 650 mg Acetaminophen (Tylenol 650 Mg Supp) 650 mg [place] Q6 PRN PRN Reason: Pain, moderate (4-7) Demeclocycline HCl (Declomycin) 300 mg PO 0800,1999 AWILDA PRN Reason: Protocol Last Admin: 05/21/18 19:50 Dose: 300 mg Fentanyl (Duragesic) 1 patch TD Q72H [facility] Last Admin: 05/19/18 15:38 Dose: 1 patch Tobramycin Sulfate 250 mg/ (Sodium Chloride) 106.25 mls @ 100 mls/hr IV Q24H AWILDA PRN Reason: Protocol Last Admin: 05/21/18 10:28 Dose: 100 mls/hr Micafungin Sodium 100 mg/ (Sodium Chloride) 100 mls @ 100 mls/hr IV Q24H [facility]ILDA PRN Reason: Protocol Last Admin: 05/21/18 08:56 Dose: 100 mls/hr Cefepime HCl 2 gm/ Sodium (Chloride) 100 mls @ 100 mls/hr IVPB Q8H [facility]ILDA PRN Reason: Protocol Last Admin: 05/22/18 01:12 Dose: 100 mls/hr Acyclovir 500 mg/ Sodium (Chloride) 100 mls @ 100 mls/hr IV Q8H [facility] PRN Reason: Protocol Last Admin: 05/22/18 05:15 Dose: 100 mls/hr Potassium Chloride (K-Dur 20 Meq Er Tab) 40 meq PO BRK [facility] Last Admin: 05/21/18 08:37 Dose: 40 meq Potassium Chloride (K-Dur 20 Meq Er Tab) 40 meq PO BRK [facility] Sodium Chloride (Sodium Chloride Tab) 1 gm PO Q12 [facility] Last Admin: 05/21/18 21:01 Dose: 1 gm Sucralfate (Carafate Tab) 1 gm PO QID [facility] Last Admin: 05/21/18 21:03 Dose: 1 gm Tramadol HCl (Ultram) 50 mg PO Q6 PRN PRN Reason: Pain, moderate (4-7) Last Admin: 05/21/18 21:01 Dose: 50 mg - Labs Labs: 05/22/18 07:04 05/20/18 08:07 PT 17.3 SECONDS (9.7-12.2) H 05/08/18 18:29 INR 1.6 05/08/18 18:29 APTT 24 SECONDS (21-34) 05/08/18 18:29 - Constitutional Appears: No Acute Distress, Chronically Ill - Head Exam Head Exam: ATRAUMATIC, NORMAL INSPECTION - Eye Exam Eye Exam: EOMI, Normal appearance - ENT Exam ENT Exam: Mucous Membranes Moist - Respiratory Exam Respiratory Exam: NORMAL BREATHING PATTERN - Cardiovascular Exam Cardiovascular Exam: REGULAR RHYTHM, +S1, +S2 - GI/Abdominal Exam GI & Abdominal Exam: Soft, Normal Bowel Sounds. absent: Tenderness - Extremities Exam Extremities Exam: Normal Inspection - Neurological Exam Neurological Exam: Alert, Awake - Psychiatric Exam Psychiatric exam: Normal Affect - Skin Skin Exam: Normal Color Assessment and Plan - Assessment and Plan (Free Text) Assessment: Pancytopenia secondary to chemotherapy adebrile blood and urine culture negative Onc Consult: Dr. Bae --> help appreciated - Spoke with Dr. Bae: patient's platelets are 4 (05/18/18) --> ordered 2 bags of platelets for transfusion - Platelets (05/22/18): 6 Medications * Meropenem IV q8h - discontinued * Tobramycin 250mg q24h started 05/09/18 * Vancomycin 1gm q12h started 05/13/18 - discontinued * Micafungin 100mg IV q24h started 05/09/18 * Acyclovir 400mg po bid started 05/18/18 * Cefepime 2gm q8h started 05/18/18 * Demeclocycline 300mg po (started 05/19/18) * NS @75cc/hr * Granix 480mcg SC daily Small Cell Lung Cancer outpatient treatment with Oncologist, Dr. Bae - All medical management per Dr. Debo Yanes PGY-2
[2018-05-22] MEDS: Micafungin 100 MG in Sodium Chloride 0.9% 100 ML IV SCH (10:57)
[2018-05-22 11:39] LABS: ALB/GLOB RATIO 1.1 (1.0-2.1); ALBUMIN 3.6 g/dL (3.5-5.0); ALT/SGPT 26 U/L (21-72); AST/SGOT 40 U/L (17-59); BLOOD UREA NITROGEN 9 mg/dL (9-20); CALCIUM 9.1 mg/dl (8.6-10.4); GFR NON-AFRICAN AMERICAN > 60
--- NOTE | 2018-05-22 15:27 | CP.PCM.PN ---
Subjective - Date & Time of Evaluation Date of Evaluation: 05/22/18 Time of Evaluation: 07:00 - Subjective Subjective: clinically same Objective - Vital Signs/Intake and Output Vital Signs (last 24 hours): Temp Pulse Resp BP Pulse Ox 98.2 F 86 20 112/67 98 05/22/18 14:48 05/22/18 14:48 05/22/18 14:48 05/22/18 14:48 05/22/18 08:29 Intake and Output: 05/22/18 05/22/18 06:59 18:59 Intake Total 919 0 Output Total 1300 Balance -381 0 - Medications Medications: Current Medications Acetaminophen (Tylenol 325mg Tab) 650 mg PO Q6 PRN PRN Reason: Fever >100.4 F Last Admin: 05/18/18 00:56 Dose: 650 mg Acetaminophen (Tylenol 650 Mg Supp) 650 mg [place] Q6 PRN PRN Reason: Pain, moderate (4-7) Demeclocycline HCl (Declomycin) 300 mg PO 0800,1999 AWILDA PRN Reason: Protocol Last Admin: 05/22/18 09:02 Dose: 300 mg Fentanyl (Duragesic) 1 patch TD Q72H [facility] Last Admin: 05/22/18 14:12 Dose: 1 patch Tobramycin Sulfate 250 mg/ (Sodium Chloride) 106.25 mls @ 100 mls/hr IV Q24H AWILDA PRN Reason: Protocol Last Admin: 05/21/18 10:28 Dose: 100 mls/hr Micafungin Sodium 100 mg/ (Sodium Chloride) 100 mls @ 100 mls/hr IV Q24H AWILDA PRN Reason: Protocol Last Admin: 05/22/18 10:57 Dose: 100 mls/hr Cefepime HCl 2 gm/ Sodium (Chloride) 100 mls @ 100 mls/hr IVPB Q8H AWILDA PRN Reason: Protocol Last Admin: 05/22/18 09:53 Dose: 100 mls/hr Acyclovir 500 mg/ Sodium (Chloride) 100 mls @ 100 mls/hr IV Q8H AWILDA PRN Reason: Protocol Last Admin: 05/22/18 14:12 Dose: 100 mls/hr Potassium Chloride (K-Dur 20 Meq Er Tab) 40 meq PO BRK [facility] Last Admin: 05/22/18 09:03 Dose: 40 meq Potassium Chloride (K-Dur 20 Meq Er Tab) 40 meq PO BRK [facility] Last Admin: 05/22/18 11:03 Dose: 40 meq Sodium Chloride (Sodium Chloride Tab) 1 gm PO Q12 [facility] Last Admin: 05/22/18 11:00 Dose: 1 gm Sucralfate (Carafate Tab) 1 gm PO QID [facility] Last Admin: 05/22/18 14:12 Dose: 1 gm Tramadol HCl (Ultram) 50 mg PO Q6 PRN PRN Reason: Pain, moderate (4-7) Last Admin: 05/22/18 12:08 Dose: 50 mg - Labs Labs: 05/22/18 07:04 05/22/18 11:17 PT 17.3 SECONDS (9.7-12.2) H 05/08/18 18:29 INR 1.6 05/08/18 18:29 APTT 24 SECONDS (21-34) 05/08/18 18:29 - Constitutional Appears: Well - Head Exam Head Exam: ATRAUMATIC, NORMAL INSPECTION, NORMOCEPHALIC - Eye Exam Eye Exam: EOMI, Normal appearance, PERRL Pupil Exam: NORMAL ACCOMODATION, PERRL - ENT Exam ENT Exam: Mucous Membranes Moist, Normal Exam - Neck Exam Neck Exam: Full ROM, Normal Inspection. absent: Lymphadenopathy - Respiratory Exam Respiratory Exam: Decreased Breath Sounds - Cardiovascular Exam Cardiovascular Exam: REGULAR RHYTHM, +S1, +S2 - GI/Abdominal Exam GI & Abdominal Exam: Soft, Diminished Bowel Sounds - Rectal Exam Rectal Exam: Deferred Assessment and Plan - Assessment and Plan (Free Text) Plan: Pancytopenia secondary to chemotherapy adebrile blood and urine culture negative Onc Consult: Dr. Bae --> help appreciated - Spoke with Dr. Bae: patient's platelets are 4 (05/18/18) --> ordered 2 bags of platelets for transfusion - Platelets (05/22/18): 6 Medications * Meropenem IV q8h - discontinued * Tobramycin 250mg q24h started 05/09/18 * Vancomycin 1gm q12h started 05/13/18 - discontinued * Micafungin 100mg IV q24h started 05/09/18 * Acyclovir 400mg po bid started 05/18/18 * Cefepime 2gm q8h started 05/18/18 * Demeclocycline 300mg po (started 05/19/18) * NS @75cc/hr * Granix 480mcg SC daily Small Cell Lung Cancer outpatient treatment with Oncologist, Dr. Bae -
--- NOTE | 2018-05-22 20:22 | CP.PCM.PN ---
Subjective - Date & Time of Evaluation Date of Evaluation: 05/20/18 Time of Evaluation: 11:00 - Subjective Subjective: No complaints. Objective - Vital Signs/Intake and Output Vital Signs (last 24 hours): Temp Pulse Resp BP Pulse Ox 98.1 F 88 20 105/62 98 05/22/18 16:28 05/22/18 16:28 05/22/18 16:28 05/22/18 16:28 05/22/18 15:30 Intake and Output: 05/22/18 05/23/18 18:59 06:59 Intake Total 1424 Balance 1424 - Medications Medications: Current Medications Acetaminophen (Tylenol 325mg Tab) 650 mg PO Q6 PRN PRN Reason: Fever >100.4 F Last Admin: 05/18/18 00:56 Dose: 650 mg Acetaminophen (Tylenol 650 Mg Supp) 650 mg [place] Q6 PRN PRN Reason: Pain, moderate (4-7) Demeclocycline HCl (Declomycin) 300 mg PO 0800,1999 AWILDA PRN Reason: Protocol Last Admin: 05/22/18 20:11 Dose: 300 mg Fentanyl (Duragesic) 1 patch TD Q72H [facility] Last Admin: 05/22/18 14:12 Dose: 1 patch Tobramycin Sulfate 250 mg/ (Sodium Chloride) 106.25 mls @ 100 mls/hr IV Q24H AWILDA PRN Reason: Protocol Last Admin: 05/21/18 10:28 Dose: 100 mls/hr Micafungin Sodium 100 mg/ (Sodium Chloride) 100 mls @ 100 mls/hr IV Q24H AWILDA PRN Reason: Protocol Last Admin: 05/22/18 10:57 Dose: 100 mls/hr Cefepime HCl 2 gm/ Sodium (Chloride) 100 mls @ 100 mls/hr IVPB Q8H AWILDA PRN Reason: Protocol Last Admin: 05/22/18 17:08 Dose: 100 mls/hr Acyclovir 500 mg/ Sodium (Chloride) 100 mls @ 100 mls/hr IV Q8H AWILDA PRN Reason: Protocol Last Admin: 05/22/18 20:15 Dose: 100 mls/hr Potassium Chloride (K-Dur 20 Meq Er Tab) 40 meq PO BRK [facility] Last Admin: 05/22/18 09:03 Dose: 40 meq Potassium Chloride (K-Dur 20 Meq Er Tab) 40 meq PO BRK [facility] Last Admin: 05/22/18 11:03 Dose: 40 meq Sodium Chloride (Sodium Chloride Tab) 1 gm PO Q12 [facility] Last Admin: 05/22/18 11:00 Dose: 1 gm Sucralfate (Carafate Tab) 1 gm PO QID [facility] Last Admin: 05/22/18 17:48 Dose: 1 gm Tramadol HCl (Ultram) 50 mg PO Q6 PRN PRN Reason: Pain, moderate (4-7) Last Admin: 05/22/18 12:08 Dose: 50 mg - Labs Labs: 05/22/18 07:04 05/22/18 11:17 PT 17.3 SECONDS (9.7-12.2) H 05/08/18 18:29 INR 1.6 05/08/18 18:29 APTT 24 SECONDS (21-34) 05/08/18 18:29 - Head Exam Head Exam: ATRAUMATIC - Eye Exam Eye Exam: Normal appearance - ENT Exam ENT Exam: Mucous Membranes Dry - Respiratory Exam Respiratory Exam: NORMAL BREATHING PATTERN - Cardiovascular Exam Cardiovascular Exam: +S1, +S2 - GI/Abdominal Exam GI & Abdominal Exam: Normal Bowel Sounds Assessment and Plan (1) Pancytopenia Assessment & Plan: secondary to chemotherapy on growth factor/transfusion support Status: Acute (2) Small cell lung cancer Assessment & Plan: stage IV outpatient chemotherapy Status: Acute
--- NOTE | 2018-05-22 20:23 | CP.PCM.PN ---
Subjective - Date & Time of Evaluation Date of Evaluation: 05/21/18 Time of Evaluation: 12:00 - Subjective Subjective: No complaints. Objective - Vital Signs/Intake and Output Vital Signs (last 24 hours): Temp Pulse Resp BP Pulse Ox 98.1 F 88 20 105/62 98 05/22/18 16:28 05/22/18 16:28 05/22/18 16:28 05/22/18 16:28 05/22/18 15:30 Intake and Output: 05/22/18 05/23/18 18:59 06:59 Intake Total 1424 Balance 1424 - Medications Medications: Current Medications Acetaminophen (Tylenol 325mg Tab) 650 mg PO Q6 PRN PRN Reason: Fever >100.4 F Last Admin: 05/18/18 00:56 Dose: 650 mg Acetaminophen (Tylenol 650 Mg Supp) [address] [place] Q6 PRN PRN Reason: Pain, moderate (4-7) Demeclocycline HCl (Declomycin) 300 mg PO 0800,1999 AWILDA PRN Reason: Protocol Last Admin: 05/22/18 20:11 Dose: 300 mg Fentanyl (Duragesic) 1 patch TD Q72H [facility] Last Admin: 05/22/18 14:12 Dose: 1 patch Tobramycin Sulfate 250 mg/ (Sodium Chloride) 106.25 mls @ 100 mls/hr IV Q24H [facility] PRN Reason: Protocol Last Admin: 05/21/18 10:28 Dose: 100 mls/hr Micafungin Sodium 100 mg/ (Sodium Chloride) 100 mls @ 100 mls/hr IV Q24H [facility] PRN Reason: Protocol Last Admin: 05/22/18 10:57 Dose: 100 mls/hr Cefepime HCl 2 gm/ Sodium (Chloride) 100 mls @ 100 mls/hr IVPB Q8H [facility] PRN Reason: Protocol Last Admin: 05/22/18 17:08 Dose: 100 mls/hr Acyclovir 500 mg/ Sodium (Chloride) 100 mls @ 100 mls/hr IV Q8H [facility] PRN Reason: Protocol Last Admin: 05/22/18 20:15 Dose: 100 mls/hr Potassium Chloride (K-Dur 20 Meq Er Tab) 40 meq PO BRK [facility] Last Admin: 05/22/18 09:03 Dose: 40 meq Potassium Chloride (K-Dur 20 Meq Er Tab) 40 meq PO BRK [facility] Last Admin: 05/22/18 11:03 Dose: 40 meq Sodium Chloride (Sodium Chloride Tab) 1 gm PO Q12 [facility] Last Admin: 05/22/18 11:00 Dose: 1 gm Sucralfate (Carafate Tab) 1 gm PO QID [facility] Last Admin: 05/22/18 17:48 Dose: 1 gm Tramadol HCl (Ultram) 50 mg PO Q6 PRN PRN Reason: Pain, moderate (4-7) Last Admin: 05/22/18 12:08 Dose: 50 mg - Labs Labs: 05/22/18 07:04 05/22/18 11:17 PT 17.3 SECONDS (9.7-12.2) H 05/08/18 18:29 INR 1.6 05/08/18 18:29 APTT 24 SECONDS (21-34) 05/08/18 18:29 - Head Exam Head Exam: ATRAUMATIC - Eye Exam Eye Exam: Normal appearance - ENT Exam ENT Exam: Mucous Membranes Dry - Respiratory Exam Respiratory Exam: NORMAL BREATHING PATTERN - Cardiovascular Exam Cardiovascular Exam: +S1, +S2 - GI/Abdominal Exam GI & Abdominal Exam: Normal Bowel Sounds Assessment and Plan (1) Pancytopenia Assessment & Plan: secondary to chemotherapy on growth factor/transfusion support Status: Acute (2) Small cell lung cancer Assessment & Plan: stage IV outpatient chemotherapy Status: Acute
--- NOTE | 2018-05-22 20:24 | CP.PCM.PN ---
Subjective - Date & Time of Evaluation Date of Evaluation: 05/22/18 Time of Evaluation: 13:00 - Subjective Subjective: No complaints. Objective - Vital Signs/Intake and Output Vital Signs (last 24 hours): Temp Pulse Resp BP Pulse Ox 98.1 F 88 20 105/62 98 05/22/18 16:28 05/22/18 16:28 05/22/18 16:28 05/22/18 16:28 05/22/18 15:30 Intake and Output: 05/22/18 05/23/18 18:59 06:59 Intake Total 1424 Balance 1424 - Medications Medications: Current Medications Acetaminophen (Tylenol 325mg Tab) 650 mg PO Q6 PRN PRN Reason: Fever >100.4 F Last Admin: 05/18/18 00:56 Dose: 650 mg Acetaminophen (Tylenol 650 Mg Supp) 650 mg [place] Q6 PRN PRN Reason: Pain, moderate (4-7) Demeclocycline HCl (Declomycin) 300 mg PO 0800,1999 AWILDA PRN Reason: Protocol Last Admin: 05/22/18 20:11 Dose: 300 mg Fentanyl (Duragesic) 1 patch TD Q72H [facility] Last Admin: 05/22/18 14:12 Dose: 1 patch Tobramycin Sulfate 250 mg/ (Sodium Chloride) 106.25 mls @ 100 mls/hr IV Q24H [facility] PRN Reason: Protocol Last Admin: 05/21/18 10:28 Dose: 100 mls/hr Micafungin Sodium 100 mg/ (Sodium Chloride) 100 mls @ 100 mls/hr IV Q24H [facility] PRN Reason: Protocol Last Admin: 05/22/18 10:57 Dose: 100 mls/hr Cefepime HCl 2 gm/ Sodium (Chloride) 100 mls @ 100 mls/hr IVPB Q8H [facility] PRN Reason: Protocol Last Admin: 05/22/18 17:08 Dose: 100 mls/hr Acyclovir 500 mg/ Sodium (Chloride) 100 mls @ 100 mls/hr IV Q8H [facility] PRN Reason: Protocol Last Admin: 05/22/18 20:15 Dose: 100 mls/hr Potassium Chloride (K-Dur 20 Meq Er Tab) 40 meq PO BRK [facility] Last Admin: 05/22/18 09:03 Dose: 40 meq Potassium Chloride (K-Dur 20 Meq Er Tab) 40 meq PO BRK [facility] Last Admin: 05/22/18 11:03 Dose: 40 meq Sodium Chloride (Sodium Chloride Tab) 1 gm PO Q12 [facility] Last Admin: 05/22/18 11:00 Dose: 1 gm Sucralfate (Carafate Tab) 1 gm PO QID [facility] Last Admin: 05/22/18 17:48 Dose: 1 gm Tramadol HCl (Ultram) 50 mg PO Q6 PRN PRN Reason: Pain, moderate (4-7) Last Admin: 05/22/18 12:08 Dose: 50 mg - Labs Labs: 05/22/18 07:04 05/22/18 11:17 PT 17.3 SECONDS (9.7-12.2) H 05/08/18 18:29 INR 1.6 05/08/18 18:29 APTT 24 SECONDS (21-34) 05/08/18 18:29 - Head Exam Head Exam: ATRAUMATIC - Eye Exam Eye Exam: Normal appearance - ENT Exam ENT Exam: Mucous Membranes Dry - Respiratory Exam Respiratory Exam: NORMAL BREATHING PATTERN - Cardiovascular Exam Cardiovascular Exam: +S1, +S2 - GI/Abdominal Exam GI & Abdominal Exam: Normal Bowel Sounds Assessment and Plan (1) Pancytopenia Assessment & Plan: secondary to chemotherapy on growth factor/transfusion support Status: Acute (2) Small cell lung cancer Assessment & Plan: stage IV outpatient chemotherapy Status: Acute
--- NOTE | 2018-05-22 21:14 | CP.PCM.PN ---
Subjective - Date & Time of Evaluation Date of Evaluation: 05/22/18 Time of Evaluation: 15:25 - Subjective Subjective: dictated Objective - Vital Signs/Intake and Output Vital Signs (last 24 hours): Temp Pulse Resp BP Pulse Ox 98.1 F 88 20 105/62 98 05/22/18 16:28 05/22/18 16:28 05/22/18 16:28 05/22/18 16:28 05/22/18 15:30 Intake and Output: 05/22/18 05/23/18 18:59 06:59 Intake Total 1424 Balance 1424 - Medications Medications: Current Medications Acetaminophen (Tylenol 325mg Tab) 650 mg PO Q6 PRN PRN Reason: Fever >100.4 F Last Admin: 05/18/18 00:56 Dose: 650 mg Acetaminophen (Tylenol 650 Mg Supp) 650 mg [place] Q6 PRN PRN Reason: Pain, moderate (4-7) Demeclocycline HCl (Declomycin) 300 mg PO 0800,1999 [facility] PRN Reason: Protocol Last Admin: 05/22/18 20:11 Dose: 300 mg Fentanyl (Duragesic) 1 patch TD Q72H [facility] Last Admin: 05/22/18 14:12 Dose: 1 patch Tobramycin Sulfate 250 mg/ (Sodium Chloride) 106.25 mls @ 100 mls/hr IV Q24H [facility] PRN Reason: Protocol Last Admin: 05/21/18 10:28 Dose: 100 mls/hr Micafungin Sodium 100 mg/ (Sodium Chloride) 100 mls @ 100 mls/hr IV Q24H [facility] PRN Reason: Protocol Last Admin: 05/22/18 10:57 Dose: 100 mls/hr Cefepime HCl 2 gm/ Sodium (Chloride) 100 mls @ 100 mls/hr IVPB Q8H [facility] PRN Reason: Protocol Last Admin: 05/22/18 17:08 Dose: 100 mls/hr Acyclovir 500 mg/ Sodium (Chloride) 100 mls @ 100 mls/hr IV Q8H [facility] PRN Reason: Protocol Last Admin: 05/22/18 20:15 Dose: 100 mls/hr Potassium Chloride (K-Dur 20 Meq Er Tab) 40 meq PO BRK [facility] Last Admin: 05/22/18 09:03 Dose: 40 meq Potassium Chloride (K-Dur 20 Meq Er Tab) 40 meq PO BRK [facility] Last Admin: 05/22/18 11:03 Dose: 40 meq Sodium Chloride (Sodium Chloride Tab) 1 gm PO Q12 [facility] Last Admin: 05/22/18 21:02 Dose: 1 gm Sucralfate (Carafate Tab) 1 gm PO QID [facility] Last Admin: 05/22/18 21:03 Dose: 1 gm Tramadol HCl (Ultram) 50 mg PO Q6 PRN PRN Reason: Pain, moderate (4-7) Last Admin: 05/22/18 12:08 Dose: 50 mg - Labs Labs: 05/22/18 07:04 05/22/18 11:17 PT 17.3 SECONDS (9.7-12.2) H 05/08/18 18:29 INR 1.6 05/08/18 18:29 APTT 24 SECONDS (21-34) 05/08/18 18:29
[2018-05-23] MEDS: Cefepime 2 GM in Sodium Chloride 0.9% 100 ML IVPB SCH ×3 (01:12→17:00)
--- NOTE | 2018-05-23 02:28 | PN ---
Copied To: Apple Rasmussen MD Attending MD: Apple Rasmussen MD DATE: 05/22/2018 INFECTIOUS DISEASE FOLLOWUP SUBJECTIVE: The patient was seen today. He is not aware of his diagnosis. Family does not want him to know his diagnosis. He denies any complaints except for some constipation that he complained to his daughter. She says they do not give lactulose, but I told her to stay away from it for now because he is recuperating, and I do not want him to have any diarrhea. PHYSICAL EXAMINATION: VITAL SIGNS: T-max is 98.1, pulse 88, blood pressure is 105/62, respirations are 20. HEENT: Head is atraumatic, normocephalic. Tongue is moist. NECK: Supple. LUNGS: Clear. HEART: S1, S2 are regular. ABDOMEN: Soft, nontender. No guarding, no rigidity present. EXTREMITIES: Have no edema. LABORATORY DATA: White count is 2.3, hemoglobin is 8.8, hematocrit is 24.3, platelet count is 6 which remains low. The patient's sodium is also 121, still very low. Potassium is 3.3. 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 Prognosis is poor. The patient's alkaline phosphatase is 357. Cultures have been all negative at this time, and he is covered for antifungal, viral as well. He is on acyclovir and cefepime. He is on demeclocycline. He is also on micafungin and tobramycin at this time. I think vancomycin fell off, but right now white count is in improving, so I will leave it off unless he run into trouble. Prognosis is very poor. He remains with thrombocytopenia; however, white count is improving. We will continue present treatment at this time. Apple Rasmussen MD
[2018-05-23] MEDS: Acyclovir 500 MG in Sodium Chloride 0.9% 100 ML IV SCH ×3 (04:17→20:37)
[2018-05-23 07:38] LABS: BASO % 0.2 % (0.0-2.0); EOS % 0.1 % (0.0-4.0); LYMPH # 0.5 K/uL (1.0-4.3); LYMPH % 12.7 % (20.0-40.0); MEAN PLATELET VOLUME 8.8 fL (7.2-11.7); MONO # 0.1 K/uL (0.0-0.8); NRBC % 0.1 % (0.0-2.0); WHITE BLOOD COUNT 3.6 K/uL (4.8-10.8)
[2018-05-23 07:55] LABS: HEMOGLOBIN 8.5 g/dL (12.0-18.0); MEAN CORPUSCULAR HEMOGLOBIN 29.2 pg (27.0-31.0); MEAN CORPUSCULAR HGB CONC 35.5 g/dL (33.0-37.0); RBC 2.92 Mil/uL (4.40-5.90)
[2018-05-23 08:11] LABS: ALBUMIN 3.6 g/dL (3.5-5.0); ALT/SGPT 30 U/L (21-72); AST/SGOT 46 U/L (17-59); BLOOD UREA NITROGEN 7 mg/dL (9-20); CALCIUM 9.3 mg/dl (8.6-10.4); GFR NON-AFRICAN AMERICAN > 60
[2018-05-23] MEDS: Potassium Chloride 20 mEq ER Tab PO SCH ×2 (08:44)
[2018-05-23] MEDS: Magnesium Sulfate 1 gm in D5W 1 GM/100 ML BAG IVPB SCH ×2 (08:58→09:48)
[2018-05-23] MEDS ORDERED: Potassium & Sodium Phosphate PO ONE (09:00)
[2018-05-23] MEDS: Micafungin 100 MG in Sodium Chloride 0.9% 100 ML IV SCH (10:44)
--- NOTE | 2018-05-23 11:25 | CP.PCM.PN ---
Subjective - Date & Time of Evaluation Date of Evaluation: 05/23/18 Time of Evaluation: 10:00 - Subjective Subjective: Medicine progress note for Dr. Mccartney's service Patient seen and examined in morning and again in afternoon. Patient's daughter at bedside in afternoon. Per daughter, patient is not eating as well as normally does and requires frequent encouragement to eat. Discussed with daughter the need to restrict oral fluid intake due to low sodium. Daughter expressed understanding. Daughter requesting ability to visit patient earlier in the day so she can help him eat breakfast. Patient also expresses generalized weakness. Objective - Vital Signs/Intake and Output Vital Signs (last 24 hours): Temp Pulse Resp BP Pulse Ox 98.0 F 85 20 127/75 99 05/23/18 08:20 05/23/18 08:20 05/23/18 08:20 05/23/18 08:20 05/23/18 08:20 Intake and Output: 05/23/18 05/23/18 06:59 18:59 Intake Total 924 Balance 924 - Medications Medications: Current Medications Acetaminophen (Tylenol 325mg Tab) 650 mg PO Q6 PRN PRN Reason: Fever >100.4 F Last Admin: 05/18/18 00:56 Dose: 650 mg Acetaminophen (Tylenol 650 Mg Supp) 650 mg [place] Q6 PRN PRN Reason: Pain, moderate (4-7) Demeclocycline HCl (Declomycin) 300 mg PO 0800,1999 [facility] PRN Reason: Protocol Last Admin: 05/23/18 08:43 Dose: 300 mg Fentanyl (Duragesic) 1 patch TD Q72H [facility] Last Admin: 05/22/18 14:12 Dose: 1 patch Tobramycin Sulfate 250 mg/ (Sodium Chloride) 106.25 mls @ 100 mls/hr IV Q24H [facility] PRN Reason: Protocol Last Admin: 05/21/18 10:28 Dose: 100 mls/hr Micafungin Sodium 100 mg/ (Sodium Chloride) 100 mls @ 100 mls/hr IV Q24H [facility] PRN Reason: Protocol Last Admin: 05/23/18 10:44 Dose: 100 mls/hr Cefepime HCl 2 gm/ Sodium (Chloride) 100 mls @ 100 mls/hr IVPB Q8H [facility] PRN Reason: Protocol Last Admin: 05/23/18 10:00 Dose: 100 mls/hr Acyclovir 500 mg/ Sodium (Chloride) 100 mls @ 100 mls/hr IV Q8H [facility] PRN Reason: Protocol Last Admin: 05/23/18 04:17 Dose: 100 mls/hr Potassium Chloride (K-Dur 20 Meq Er Tab) 40 meq PO BRK ON [facility] Last Admin: 05/23/18 08:44 Dose: 40 meq Potassium Chloride (K-Dur 20 Meq Er Tab) 40 meq PO BRK [facility] Last Admin: 05/23/18 08:44 Dose: 40 meq Sodium Chloride (Sodium Chloride Tab) 1 gm PO Q12 [facility] Last Admin: 05/23/18 11:00 Dose: 1 gm Sucralfate (Carafate Tab) 1 gm PO QID [facility] Last Admin: 05/23/18 10:43 Dose: 1 gm Tramadol HCl (Ultram) 50 mg PO Q6 PRN PRN Reason: Pain, moderate (4-7) Last Admin: 05/22/18 12:08 Dose: 50 mg - Labs Labs: 05/23/18 07:13 05/23/18 07:13 PT 17.3 SECONDS (9.7-12.2) H 05/08/18 18:29 INR 1.6 05/08/18 18:29 APTT 24 SECONDS (21-34) 05/08/18 18:29 - Constitutional Appears: Chronically Ill - Head Exam Head Exam: ATRAUMATIC, NORMOCEPHALIC - Eye Exam Eye Exam: EOMI - ENT Exam ENT Exam: Mucous Membranes Moist - Respiratory Exam Respiratory Exam: NORMAL BREATHING PATTERN. absent: Rales, Rhonchi, Wheezes - Cardiovascular Exam Cardiovascular Exam: +S1, +S2 - GI/Abdominal Exam GI & Abdominal Exam: Soft, Normal Bowel Sounds. absent: Tenderness - Neurological Exam Neurological Exam: Alert, Awake - Psychiatric Exam Psychiatric exam: Normal Affect - Skin Skin Exam: Warm Assessment and Plan - Assessment and Plan (Free Text) Assessment: Pancytopenia secondary to chemotherapy afebrile blood and urine culture negative Onc Consult: Dr. Bae --> help appreciated - Spoke with Dr. Bae: patient's platelets are 4 (05/18/18) --> ordered 2 bags of platelets for transfusion - Platelets (05/23/18): 7 --> 1 unit platelets ordered for transfusion Medications * Meropenem IV q8h - discontinued * Tobramycin 250mg q24h started 05/09/18 * Vancomycin 1gm q12h started 05/13/18 - discontinued * Micafungin 100mg IV q24h started 05/09/18 * Acyclovir 400mg po bid started 05/18/18 * Cefepime 2gm q8h started 05/18/18 * Demeclocycline 300mg po (started 05/19/18) * Holding Granix for now as WBC count improving per Dr. 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 Bae Prophylactic measure carafate 1g PO QID chemical VTE prophylaxis contraindicated due to thrombocytopenia PT eval for weakness neutropenic precautions All medical management per Dr. Debo Mccartney
[2018-05-23 14:16] LABS: OSMOLALITY,URINE 463 mosm/kg (300-1000)
[2018-05-23 14:22] LABS: BLOOD UREA NITROGEN 8 mg/dL (9-20); CALCIUM 8.8 mg/dl (8.6-10.4); GFR NON-AFRICAN AMERICAN > 60
--- NOTE | 2018-05-23 20:45 | CP.PCM.PN ---
Subjective - Date & Time of Evaluation Date of Evaluation: 05/23/18 Time of Evaluation: 13:00 - Subjective Subjective: dictated Objective - Vital Signs/Intake and Output Vital Signs (last 24 hours): Temp Pulse Resp BP Pulse Ox 98.1 F 101 H 20 143/70 97 05/23/18 18:53 05/23/18 18:53 05/23/18 18:53 05/23/18 18:53 05/23/18 16:00 Intake and Output: 05/23/18 05/24/18 18:59 06:59 Intake Total 1416 Balance 1416 - Medications Medications: Current Medications Acetaminophen (Tylenol 325mg Tab) 650 mg PO Q6 PRN PRN Reason: Fever >100.4 F Last Admin: 05/18/18 00:56 Dose: 650 mg Acetaminophen (Tylenol 650 Mg Supp) 650 mg [place] Q6 PRN PRN Reason: Pain, moderate (4-7) Demeclocycline HCl (Declomycin) 300 mg PO 0800,1999 [facility] PRN Reason: Protocol Last Admin: 05/23/18 19:32 Dose: 300 mg Fentanyl (Duragesic) 1 patch TD Q72H [facility] Last Admin: 05/22/18 14:12 Dose: 1 patch Tobramycin Sulfate 250 mg/ (Sodium Chloride) 106.25 mls @ 100 mls/hr IV Q24H [facility] PRN Reason: Protocol Last Admin: 05/23/18 11:54 Dose: 100 mls/hr Micafungin Sodium 100 mg/ (Sodium Chloride) 100 mls @ 100 mls/hr IV Q24H [facility] PRN Reason: Protocol Last Admin: 05/23/18 10:44 Dose: 100 mls/hr Cefepime HCl 2 gm/ Sodium (Chloride) 100 mls @ 100 mls/hr IVPB Q8H [facility] PRN Reason: Protocol Last Admin: 05/23/18 10:00 Dose: 100 mls/hr Acyclovir 500 mg/ Sodium (Chloride) 100 mls @ 100 mls/hr IV Q8H [facility] PRN Reason: Protocol Last Admin: 05/23/18 20:37 Dose: 100 mls/hr Potassium Chloride (K-Dur 20 Meq Er Tab) 40 meq PO BRK [facility] Last Admin: 05/23/18 08:44 Dose: 40 meq Sodium Chloride (Sodium Chloride Tab) 1 gm PO Q12 [facility] Last Admin: 05/23/18 11:00 Dose: 1 gm Sucralfate (Carafate Tab) 1 gm PO QID [facility] Last Admin: 05/23/18 18:10 Dose: 1 gm Tramadol HCl (Ultram) 50 mg PO Q6 PRN PRN Reason: Pain, moderate (4-7) Last Admin: 05/23/18 20:35 Dose: 50 mg - Labs Labs: 05/23/18 07:13 05/23/18 13:53 PT 17.3 SECONDS (9.7-12.2) H 05/08/18 18:29 INR 1.6 05/08/18 18:29 APTT 24 SECONDS (21-34) 05/08/18 18:29
--- NOTE | 2018-05-23 21:11 | CP.PCM.PN ---
Subjective - Date & Time of Evaluation Date of Evaluation: 05/23/18 Time of Evaluation: 18:35 - Subjective Subjective: Feels weak. Objective - Vital Signs/Intake and Output Vital Signs (last 24 hours): Temp Pulse Resp BP Pulse Ox 98.1 F 101 H 20 143/70 97 05/23/18 18:53 05/23/18 18:53 05/23/18 18:53 05/23/18 18:53 05/23/18 16:00 Intake and Output: 05/23/18 05/24/18 18:59 06:59 Intake Total 1416 Balance 1416 - Medications Medications: Current Medications Acetaminophen (Tylenol 325mg Tab) 650 mg PO Q6 PRN PRN Reason: Fever >100.4 F Last Admin: 05/18/18 00:56 Dose: 650 mg Acetaminophen (Tylenol 650 Mg Supp) 650 mg [place] Q6 PRN PRN Reason: Pain, moderate (4-7) Demeclocycline HCl (Declomycin) 300 mg PO 0800,1999 [facility] PRN Reason: Protocol Last Admin: 05/23/18 19:32 Dose: 300 mg Fentanyl (Duragesic) 1 patch TD Q72H [facility] Last Admin: 05/22/18 14:12 Dose: 1 patch Micafungin Sodium 100 mg/ (Sodium Chloride) 100 mls @ 100 mls/hr IV Q24H [facility] PRN Reason: Protocol Last Admin: 05/23/18 10:44 Dose: 100 mls/hr Cefepime HCl 2 gm/ Sodium (Chloride) 100 mls @ 100 mls/hr IVPB Q8H [facility] PRN Reason: Protocol Last Admin: 05/23/18 10:00 Dose: 100 mls/hr Acyclovir 500 mg/ Sodium (Chloride) 100 mls @ 100 mls/hr IV Q8H [facility] PRN Reason: Protocol Last Admin: 05/23/18 20:37 Dose: 100 mls/hr Potassium Chloride (K-Dur 20 Meq Er Tab) 40 meq PO BRK [facility] Last Admin: 05/23/18 08:44 Dose: 40 meq Sodium Chloride (Sodium Chloride Tab) 1 gm PO Q12 [facility] Last Admin: 05/23/18 11:00 Dose: 1 gm Sucralfate (Carafate Tab) 1 gm PO QID [facility] Last Admin: 05/23/18 18:10 Dose: 1 gm Tramadol HCl (Ultram) 50 mg PO Q6 PRN PRN Reason: Pain, moderate (4-7) Last Admin: 05/23/18 20:35 Dose: 50 mg - Labs Labs: 05/23/18 07:13 05/23/18 13:53 PT 17.3 SECONDS (9.7-12.2) H 05/08/18 18:29 INR 1.6 05/08/18 18:29 APTT 24 SECONDS (21-34) 05/08/18 18:29 - Head Exam Head Exam: ATRAUMATIC - Eye Exam Eye Exam: Normal appearance - ENT Exam ENT Exam: Mucous Membranes Dry - Respiratory Exam Respiratory Exam: NORMAL BREATHING PATTERN - Cardiovascular Exam Cardiovascular Exam: +S1, +S2 - GI/Abdominal Exam GI & Abdominal Exam: Normal Bowel Sounds Assessment and Plan (1) Pancytopenia Assessment & Plan: secondary to chemotherapy WBC improving s/p growth factor support transfusion support Status: Acute (2) Small cell lung cancer Assessment & Plan: stage IV outpatient chemotherapy Status: Acute
--- NOTE | 2018-05-23 21:31 | CP.PCM.PN ---
Subjective - Date & Time of Evaluation Date of Evaluation: 05/23/18 Time of Evaluation: 07:00 - Subjective Subjective: clinically same Objective - Vital Signs/Intake and Output Vital Signs (last 24 hours): Temp Pulse Resp BP Pulse Ox 98.1 F 101 H 20 143/70 97 05/23/18 18:53 05/23/18 18:53 05/23/18 18:53 05/23/18 18:53 05/23/18 16:00 Intake and Output: 05/23/18 05/24/18 18:59 06:59 Intake Total 1416 Balance 1416 - Medications Medications: Current Medications Acetaminophen (Tylenol 325mg Tab) 650 mg PO Q6 PRN PRN Reason: Fever >100.4 F Last Admin: 05/18/18 00:56 Dose: 650 mg Acetaminophen (Tylenol 650 Mg Supp) 650 mg [place] Q6 PRN PRN Reason: Pain, moderate (4-7) Demeclocycline HCl (Declomycin) 300 mg PO 0800,1999 [facility] PRN Reason: Protocol Last Admin: 05/23/18 19:32 Dose: 300 mg Fentanyl (Duragesic) 1 patch TD Q72H [facility] Last Admin: 05/22/18 14:12 Dose: 1 patch Micafungin Sodium 100 mg/ (Sodium Chloride) 100 mls @ 100 mls/hr IV Q24H [facility] PRN Reason: Protocol Last Admin: 05/23/18 10:44 Dose: 100 mls/hr Cefepime HCl 2 gm/ Sodium (Chloride) 100 mls @ 100 mls/hr IVPB Q8H [facility] PRN Reason: Protocol Last Admin: 05/23/18 17:00 Dose: 100 mls/hr Acyclovir 500 mg/ Sodium (Chloride) 100 mls @ 100 mls/hr IV Q8H [facility] PRN Reason: Protocol Last Admin: 05/23/18 20:37 Dose: 100 mls/hr Potassium Chloride (K-Dur 20 Meq Er Tab) 40 meq PO BRK [facility] Last Admin: 05/23/18 08:44 Dose: 40 meq Sodium Chloride (Sodium Chloride Tab) 1 gm PO Q12 [facility] Last Admin: 05/23/18 21:11 Dose: 1 gm Sucralfate (Carafate Tab) 1 gm PO QID [facility] Last Admin: 05/23/18 21:11 Dose: 1 gm Tramadol HCl (Ultram) 50 mg PO Q6 PRN PRN Reason: Pain, moderate (4-7) Last Admin: 05/23/18 20:35 Dose: 50 mg - Labs Labs: 05/23/18 07:13 05/23/18 13:53 PT 17.3 SECONDS (9.7-12.2) H 05/08/18 18:29 INR 1.6 05/08/18 18:29 APTT 24 SECONDS (21-34) 05/08/18 18:29 - Constitutional Appears: Well - Head Exam Head Exam: ATRAUMATIC, NORMAL INSPECTION, NORMOCEPHALIC - Eye Exam Eye Exam: EOMI, Normal appearance, PERRL Pupil Exam: NORMAL ACCOMODATION, PERRL - ENT Exam ENT Exam: Mucous Membranes Moist, Normal Exam - Neck Exam Neck Exam: Full ROM, Normal Inspection. absent: Lymphadenopathy - Respiratory Exam Respiratory Exam: Decreased Breath Sounds - Cardiovascular Exam Cardiovascular Exam: REGULAR RHYTHM, +S1, +S2 - GI/Abdominal Exam GI & Abdominal Exam: Soft, Diminished Bowel Sounds - Rectal Exam Rectal Exam: Deferred
[2018-05-24] MEDS: Cefepime 2 GM in Sodium Chloride 0.9% 100 ML IVPB SCH ×3 (01:56→17:21)
--- NOTE | 2018-05-24 02:27 | PN ---
DATE: 05/24/2018 SUBJECTIVE: The patient is awake, alert. He remains fine. His daughter was at the bedside. He had a BM last night. He has no new complaints. He is eating better now and his labs look a little better. PHYSICAL EXAMINATION: VITAL SIGNS: Temperature is 98.1, heart rate remains 101, blood pressure 143/70, respirations are 20. HEENT: Head is atraumatic. NECK: Supple. LUNGS: Clear. Decreased breath sounds at the bases. HEART: S1, S2 are regular. ABDOMEN: Soft, nontender. No guarding, no rigidity present. EXTREMITIES: No edema. LABORATORY DATA: White count today is 3.6, hemoglobin is 8.5, hematocrit 24, platelets are still low at 7. 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 We will continue the rest of the antibiotics as such as his platelets still remain low and he remains significantly ill. We will follow. The patient is status post radiation, small cell cancer, hyponatremia, and pancytopenia and remains acutely ill, but the patient is not aware of his diagnosis. Family does not want to tell him. Apple Rasmussen MD
[2018-05-24] MEDS: Acyclovir 500 MG in Sodium Chloride 0.9% 100 ML IV SCH ×3 (05:41→21:22)
--- NOTE | 2018-05-24 07:53 | CP.PCM.PN ---
Subjective - Date & Time of Evaluation Date of Evaluation: 05/24/18 Time of Evaluation: 08:00 - Subjective Subjective: Medicine progress note for Dr. Mccartney's service Patient was seen and examined in the AM. No acute events overnight. Patient is awake, oriented to only self. Per nurse patient did eat his oatmeal this morning. Objective - Vital Signs/Intake and Output Vital Signs (last 24 hours): Temp Pulse Resp BP Pulse Ox 98.1 F 93 H 20 128/73 94 L 05/24/18 00:00 05/24/18 00:00 05/24/18 00:00 05/24/18 00:00 05/24/18 00:00 - Medications Medications: Current Medications Acetaminophen (Tylenol 325mg Tab) 650 mg PO Q6 PRN PRN Reason: Fever >100.4 F Last Admin: 05/18/18 00:56 Dose: 650 mg Acetaminophen (Tylenol 650 Mg Supp) 650 mg [place] Q6 PRN PRN Reason: Pain, moderate (4-7) Demeclocycline HCl (Declomycin) 300 mg PO 08,1999 [facility] PRN Reason: Protocol Last Admin: 05/23/18 19:32 Dose: 300 mg Fentanyl (Duragesic) 1 patch TD Q72H [facility] Last Admin: 05/22/18 14:12 Dose: 1 patch Micafungin Sodium 100 mg/ (Sodium Chloride) 100 mls @ 100 mls/hr IV Q24H [facility] PRN Reason: Protocol Last Admin: 05/23/18 10:44 Dose: 100 mls/hr Cefepime HCl 2 gm/ Sodium (Chloride) 100 mls @ 100 mls/hr IVPB Q8H [facility] PRN Reason: Protocol Last Admin: 05/24/18 01:56 Dose: 100 mls/hr Acyclovir 500 mg/ Sodium (Chloride) 100 mls @ 100 mls/hr IV Q8H [facility] PRN Reason: Protocol Last Admin: 05/24/18 05:41 Dose: 100 mls/hr Potassium Chloride (K-Dur 20 Meq Er Tab) 40 meq PO BRK [facility] Last Admin: 05/23/18 08:44 Dose: 40 meq Sodium Chloride (Sodium Chloride Tab) 1 gm PO Q12 [facility] Last Admin: 05/23/18 21:11 Dose: 1 gm Sucralfate (Carafate Tab) 1 gm PO QID [facility] Last Admin: 05/23/18 21:11 Dose: 1 gm Tramadol HCl (Ultram) 50 mg PO Q6 PRN PRN Reason: Pain, moderate (4-7) Last Admin: 05/23/18 20:35 Dose: 50 mg - Labs Labs: 05/23/18 07:13 05/23/18 13:53 PT 17.3 SECONDS (9.7-12.2) H 05/08/18 18:29 INR 1.6 05/08/18 18:29 APTT 24 SECONDS (21-34) 05/08/18 18:29 - Constitutional Appears: No Acute Distress, Chronically Ill - Head Exam Head Exam: ATRAUMATIC, NORMAL INSPECTION - Eye Exam Eye Exam: EOMI, Normal appearance - ENT Exam ENT Exam: Mucous Membranes Moist - Respiratory Exam Respiratory Exam: NORMAL BREATHING PATTERN - Cardiovascular Exam Cardiovascular Exam: REGULAR RHYTHM, +S1, +S2 - GI/Abdominal Exam GI & Abdominal Exam: Soft, Normal Bowel Sounds. absent: Tenderness - Extremities Exam Extremities Exam: Normal Inspection. absent: Joint Swelling, Pedal Edema, Tenderness - Neurological Exam Neurological Exam: Alert, Awake. absent: Oriented x3 (oriented to self) - Psychiatric Exam Psychiatric exam: Normal Affect - Skin Skin Exam: Normal Color Assessment and Plan - Assessment and Plan (Free Text) Assessment: Pancytopenia secondary to chemotherapy afebrile blood and urine culture negative Onc Consult: Dr. Bae --> help appreciated - Spoke with Dr. Bae: patient's platelets are 4 (05/18/18) --> ordered 2 bags of platelets for transfusion - Platelets (05/23/18): 7 --> 1 unit platelets ordered for transfusion Medications * Meropenem IV q8h - discontinued * Tobramycin 250mg q24h started 05/09/18 * Vancomycin 1gm q12h started 05/13/18 - discontinued * Micafungin 100mg IV q24h started 05/09/18 * Acyclovir 400mg po bid started 05/18/18 * Cefepime 2gm q8h started 05/18/18 * Demeclocycline 300mg po (started 05/19/18) - discontinued per Dr. Escobedo * Holding Granix for now as WBC count improving per Dr. Bae Hyponatremia secondary to SIADH Change in mental status - patient is oriented to self previously (2 days prior) patient oriented to person and place Nephrology Consult: Dr. Escobedo --> help appreciated - spoke with Dr. Escobedo - gave a one time dose of Tolvaptan 15mg 05/24 will continue to monitor Na - f/u uric acid - Sodium 1g PO q12h -hold Serum Osmolality 464; Urine Sodium 127 (high); Urine Osmolality 463 (high) - f/u repeat urine osmolality, urine sodium Continue fluid restriction 1L Electrolyte abnormality hypokalemia, hypomagnesemia, hypophosphatemia electrolytes repleted, continue to monitor continue daily potassium 40 meq daily with breakfast Small Cell Lung Cancer outpatient treatment with Oncologist, Dr. Bae Prophylactic measure carafate 1g PO QID chemical VTE prophylaxis contraindicated due to thrombocytopenia PT eval for weakness neutropenic precautions All medical management per Dr. Debo Mccartney
[2018-05-24] MEDS: Potassium Chloride 20 mEq ER Tab PO SCH (08:35)
[2018-05-24 08:51] LABS: BASO % 0.2 % (0.0-2.0); EOS % 0.1 % (0.0-4.0); HEMOGLOBIN 8.5 g/dL (12.0-18.0); LYMPH # 0.5 K/uL (1.0-4.3); LYMPH % 10.7 % (20.0-40.0); MEAN CELL VOLUME 80.4 fL (80.0-94.0); MEAN CORPUSCULAR HEMOGLOBIN 29.4 pg (27.0-31.0); MEAN CORPUSCULAR HGB CONC 36.6 g/dL (33.0-37.0); MONO # 0.2 K/uL (0.0-0.8); MONO % 3.8 % (0.0-10.0); NEUT # 3.7 K/uL (1.8-7.0); NEUT % 85.2 % (50.0-75.0); NRBC % 0.1 % (0.0-2.0); RBC 2.88 Mil/uL (4.40-5.90); RED CELL DISTRIBUTION WIDTH 14.8 % (11.5-14.5); WHITE BLOOD COUNT 4.4 K/uL (4.8-10.8)
[2018-05-24 09:18] LABS: ALB/GLOB RATIO 1.1 (1.0-2.1); ALBUMIN 3.7 g/dL (3.5-5.0); ALT/SGPT 32 U/L (21-72); AST/SGOT 49 U/L (17-59); BLOOD UREA NITROGEN 9 mg/dL (9-20); GFR NON-AFRICAN AMERICAN > 60
--- NOTE | 2018-05-24 10:33 | CP.PCM.CON ---
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 The patient reported to the ER for severe neutropenia. He does admit to fevers and chills. He denies N/V and diarrhea. Hospital course noted for continued neutropenia, possiblky induced by CTX. Now with progressive hyponatremia Urine poarameters consistent with SIADH Past medical history: HTN, GERD, HL, CAD s/p CABG. Past surgical history: Denies. Family history: Denies hematologic and oncologic problems Social histoy: smokes 2 cigs daily x 50 years, former alcohol abuse. Allergies: NKA Review of Systems - Review of Systems Systems not reviewed;Unavailable: Language Barrier Past Patient History - Infectious Disease Hx of Infectious Diseases: None - Past Medical History & Family History Past Medical History?: Yes Past Family History: Reviewed and not pertinent - Past Social History Smoking Status: Heavy Smoker > 10 Cigarettes Daily Chewing Tobacco Use: No Cigar Use: No Alcohol: > 2 Drinks/Day Home Situation {Lives}: With Family - CARDIAC Hx Cardiac Disorders: Yes (CABG) Hx Hypercholesterolemia: Yes Hx Hypertension: Yes - PULMONARY Hx Respiratory Disorders: No - NEUROLOGICAL Hx Neurological Disorder: No Hx Paralysis: No - HEENT Hx HEENT Problems: No - RENAL Hx Chronic Kidney Disease: No - ENDOCRINE/METABOLIC Hx Endocrine Disorders: No - HEMATOLOGICAL/ONCOLOGICAL Hx Anemia: Yes - INTEGUMENTARY Hx Dermatological Problems: No - MUSCULOSKELETAL/RHEUMATOLOGICAL Hx Arthritis: Yes (HX OF B/L HIP PAIN L>R) - GASTROINTESTINAL Hx Gastritis: Yes - GENITOURINARY/GYNECOLOGICAL Hx Genitourinary Disorders: No - PSYCHIATRIC Hx Anxiety: Yes Hx Substance Use: No - SURGICAL HISTORY Hx Coronary Artery Bypass Graft: Yes - ANESTHESIA Hx Anesthesia: Yes Hx Anesthesia Reactions: No Hx Malignant Hyperthermia: No Has any member of the family had a problem w/ anesthesia?: No Meds Allergies/Adverse Reactions: Allergies Allergy/AdvReac Type Severity Reaction Status Date / Time No Known Allergies Allergy Verified 03/13/18 11:41 - Medications Medications: Current Medications Acetaminophen (Tylenol 325mg Tab) 650 mg PO Q6 PRN PRN Reason: Fever >100.4 F Last Admin: 05/18/18 00:56 Dose: 650 mg Acetaminophen (Tylenol 650 Mg Supp) 650 mg [place] Q6 PRN PRN Reason: Pain, moderate (4-7) Demeclocycline HCl (Declomycin) 300 mg PO 0800,1999 [facility] PRN Reason: Protocol Last Admin: 05/24/18 08:35 Dose: 300 mg Fentanyl (Duragesic) 1 patch TD Q72H [facility] Last Admin: 05/22/18 14:12 Dose: 1 patch Micafungin Sodium 100 mg/ (Sodium Chloride) 100 mls @ 100 mls/hr IV Q24H [facility] PRN Reason: Protocol Last Admin: 05/23/18 10:44 Dose: 100 mls/hr Cefepime HCl 2 gm/ Sodium (Chloride) 100 mls @ 100 mls/hr IVPB Q8H [facility] PRN Reason: Protocol Last Admin: 05/24/18 01:56 Dose: 100 mls/hr Acyclovir 500 mg/ Sodium (Chloride) 100 mls @ 100 mls/hr IV Q8H [facility] PRN Reason: Protocol Last Admin: 05/24/18 05:41 Dose: 100 mls/hr Magnesium Sulfate/Dextrose (Magnesium Sulfate 1 Gm/100 Ml D5w) 1 gm in 100 mls @ 300 mls/hr IVPB Q30M [facility] Stop: 05/24/18 11:04 Potassium Chloride (K-Dur 20 Meq Er Tab) 40 meq PO BRK [facility] Last Admin: 05/24/18 08:35 Dose: 40 meq Sodium Chloride (Sodium Chloride Tab) 1 gm PO Q12 [facility] Last Admin: 05/23/18 21:11 Dose: 1 gm Sucralfate (Carafate Tab) 1 gm PO QID [facility] Last Admin: 05/23/18 21:11 Dose: 1 gm Tramadol HCl (Ultram) 50 mg PO Q6 PRN PRN Reason: Pain, moderate (4-7) Last Admin: 05/23/18 20:35 Dose: 50 mg Physical Exam - Head Exam Head Exam: ATRAUMATIC, NORMAL INSPECTION - Eye Exam Eye Exam: EOMI, Normal appearance - Neck Exam Neck exam: Positive for: Normal Inspection. Negative for: Tenderness - Respiratory Exam Respiratory Exam: Clear to Auscultation Bilateral, NORMAL BREATHING PATTERN - Cardiovascular Exam Cardiovascular Exam: REGULAR RHYTHM, +S1 - GI/Abdominal Exam GI & Abdominal Exam: Distended, Soft - Extremities Exam Extremities exam: Positive for: normal inspection. Negative for: tenderness - Neurological Exam Neurological exam: Alert, CN II-XII Intact - Skin Skin Exam: Dry, Warm Results - Vital Signs Recent Vital Signs: Last Vital Signs Temp 97.9 F 05/24/18 08:34 Pulse 91 H 05/24/18 08:34 Resp 20 05/24/18 08:34 BP 127/78 05/24/18 08:34 Pulse Ox 97 05/24/18 08:34 - Labs Result Diagrams: 05/24/18 08:41 05/24/18 08:41 Labs: Laboratory Results - last 24 hr 05/23/18 05/23/18 05/23/18 13:04 13:04 13:53 WBC RBC Hgb Hct MCV MCH MCHC RDW Plt Count MPV Neut % (Auto) Lymph % (Auto) [place] % (Auto) Eos % (Auto) Baso % (Auto) Neut # (Auto) Lymph # (Auto) [place] # (Auto) Eos # (Auto) Baso # (Auto) Sodium 118 L* Potassium 4.8 Chloride 82 L Carbon Dioxide 22 Anion Gap 19 BUN 8 L Creatinine 0.4 L Est GFR ( Amer) > 60 Est GFR (Non-Af Amer) > 60 Random Glucose 123 H Serum Osmolality 464 H Calcium 8.8 Phosphorus Magnesium Total Bilirubin AST ALT Alkaline Phosphatase Total Protein Albumin Globulin Albumin/Globulin Ratio Urine Osmolality 463 Ur Random Sodium 127 05/24/18 05/24/18 08:41 08:41 WBC 4.4 L RBC 2.88 L Hgb 8.5 L Hct 23.2 L MCV 80.4 MCH 29.4 MCHC 36.6 RDW 14.8 H Plt Count 13 L* D MPV 9.0 Neut % (Auto) 85.2 H Lymph % (Auto) 10.7 L [place] % (Auto) 3.8 Eos % (Auto) 0.1 Baso % (Auto) 0.2 Neut # (Auto) 3.7 Lymph # (Auto) 0.5 L [place] # (Auto) 0.2 Eos # (Auto) 0.0 Baso # (Auto) 0.0 Sodium 116 L* Potassium 3.9 Chloride 82 L Carbon Dioxide 24 Anion Gap 14 BUN 9 Creatinine 0.4 L Est GFR ( Amer) > 60 Est GFR (Non-Af Amer) > 60 Random Glucose 99 Serum Osmolality Calcium 9.0 Phosphorus 2.3 L Magnesium 1.4 L Total Bilirubin 2.0 H AST 49 ALT 32 Alkaline Phosphatase 364 H Total Protein 7.2 Albumin 3.7 Globulin 3.4 Albumin/Globulin Ratio 1.1 Urine Osmolality Ur Random Sodium Assessment & Plan (1) SIADH (syndrome of inappropriate ADH production) Status: Acute (2) Metastatic adenocarcinoma Status: Acute (3) Metastatic cancer Status: Acute (4) CAD (coronary artery disease) Status: Acute Priority: Medium (5) Hyponatremia Status: Acute (6) Pancytopenia Status: Acute (7) SIADH (syndrome of inappropriate ADH production) Status: Acute - Assessment and Plan (Free Text) Plan: check uric acid serial chemistries trial tovalptan monitor Na levels closely - do not allow na to rise > 8 meq/day
[2018-05-24] MEDS: Micafungin 100 MG in Sodium Chloride 0.9% 100 ML IV SCH (10:40)
[2018-05-24] MEDS ORDERED: Tolvaptan 15 MG TAB PO ONE (11:30)
[2018-05-24] MEDS: Magnesium Sulfate 1 gm in D5W 1 GM/100 ML BAG IVPB SCH ×3 (12:10→14:09)
[2018-05-24 13:38] LABS: URIC ACID 1.6 mg/dL (3.5-8.5)
--- NOTE | 2018-05-24 15:28 | CP.PCM.PN ---
Subjective - Date & Time of Evaluation Date of Evaluation: 05/24/18 Time of Evaluation: 07:00 - Subjective Subjective: clinically same Objective - Vital Signs/Intake and Output Vital Signs (last 24 hours): Temp Pulse Resp BP Pulse Ox 97.9 F 91 H 20 127/78 97 05/24/18 08:34 05/24/18 08:34 05/24/18 08:34 05/24/18 08:34 05/24/18 08:34 - Medications Medications: Current Medications Acetaminophen (Tylenol 325mg Tab) 650 mg PO Q6 PRN PRN Reason: Fever >100.4 F Last Admin: 05/18/18 00:56 Dose: 650 mg Acetaminophen (Tylenol 650 Mg Supp) 650 mg [place] Q6 PRN PRN Reason: Pain, moderate (4-7) Fentanyl (Duragesic) 1 patch TD Q72H [facility] Last Admin: 05/22/18 14:12 Dose: 1 patch Micafungin Sodium 100 mg/ (Sodium Chloride) 100 mls @ 100 mls/hr IV Q24H [facility] PRN Reason: Protocol Last Admin: 05/24/18 10:40 Dose: 100 mls/hr Cefepime HCl 2 gm/ Sodium (Chloride) 100 mls @ 100 mls/hr IVPB Q8H [facility] PRN Reason: Protocol Last Admin: 05/24/18 12:09 Dose: 100 mls/hr Acyclovir 500 mg/ Sodium (Chloride) 100 mls @ 100 mls/hr IV Q8H [facility] PRN Reason: Protocol Last Admin: 05/24/18 14:22 Dose: 100 mls/hr Potassium Chloride (K-Dur 20 Meq Er Tab) 40 meq PO BRK [facility] Last Admin: 05/24/18 08:35 Dose: 40 meq Sodium Chloride (Sodium Chloride Tab) 1 gm PO Q12 [facility] Last Admin: 05/24/18 10:41 Dose: 1 gm Sucralfate (Carafate Tab) 1 gm PO QID [facility] Last Admin: 05/24/18 13:18 Dose: 1 gm Tramadol HCl (Ultram) 50 mg PO Q6 PRN PRN Reason: Pain, moderate (4-7) Last Admin: 05/23/18 20:35 Dose: 50 mg - Labs Labs: 05/24/18 08:41 05/24/18 08:41 PT 17.3 SECONDS (9.7-12.2) H 05/08/18 18:29 INR 1.6 05/08/18 18:29 APTT 24 SECONDS (21-34) 05/08/18 18:29 Assessment and Plan (1) Anemia Status: Acute (2) Electrolyte imbalance Status: Acute (3) Leukopenia Status: Acute (4) Metastatic adenocarcinoma Status: Acute (5) Metastatic cancer Status: Acute (6) Metastatic cancer to liver Status: Acute (7) Neutropenic fever Status: Acute (8) Pancytopenia Status: Acute (9) SIADH (syndrome of inappropriate ADH production) Status: Acute (10) Septic shock Status: Acute (11) Small cell lung cancer Status: Acute (12) Abdominal colic Status: Acute (13) Abdominal pain Status: Acute (14) CAD (coronary artery disease) Status: Acute (15) Diplopia Status: Acute (16) Disorder of vision Status: Acute (17) Dizziness Status: Acute (18) Hepatomegaly Status: Acute (19) Hiccups Status: Acute (20) Hypertension Status: Acute (21) Hyponatremia Status: Acute (22) Hyponatremia with decreased serum osmolality Status: Acute (23) Intractable hiccups Status: Acute (24) Leg cramps Status: Acute (25) Otitis media Status: Acute (26) Pancytopenia Status: Acute (27) S/P CABG (coronary artery bypass graft) Status: Acute (28) SIADH (syndrome of inappropriate ADH production) Status: Acute (29) Thrombocytopenia Status: Acute - Assessment and Plan (Free Text) Plan: dc demeclocycline hold 3 pecent james samsca opn ncl tab cbc cmp twice james as ordered d.w family folwup dr. kyle atkinson Pancytopenia secondary to chemotherapy afebrile blood and urine culture negative Onc Consult: Dr. Bae --> help appreciated - Spoke with Dr. Bae: patient's platelets are 4 (05/18/18) --> ordered 2 bags of platelets for transfusion - Platelets (05/23/18): 7 --> 1 unit platelets ordered for transfusion Medications * Meropenem IV q8h - discontinued * Tobramycin 250mg q24h started 05/09/18 * Vancomycin 1gm q12h started 05/13/18 - discontinued * Micafungin 100mg IV q24h started 05/09/18 * Acyclovir 400mg po bid started 05/18/18 * Cefepime 2gm q8h started 05/18/18 * Demeclocycline 300mg po (started 05/19/18) - discontinued per Dr. Escobedo * Holding Granix for now as WBC count improving per Dr. Bae Hyponatremia secondary to SIADH Change in mental status - patient is oriented to self previously (2 days prior) patient oriented to person and place Nephrology Consult: Dr. Escobedo --> help appreciated - spoke with Dr. Escobedo - gave a one time dose of Tolvaptan 15mg 05/24 will continue to monitor Na - f/u uric acid - Sodium 1g PO q12h -hold Serum Osmolality 464; Urine Sodium 127 (high); Urine Osmolality 463 (high) - f/u repeat urine osmolality, urine sodium Continue fluid restriction 1L Electrolyte abnormality hypokalemia, hypomagnesemia, hypophosphatemia electrolytes repleted, continue to monitor continue daily potassium 40 meq daily with breakfast Small Cell Lung Cancer outpatient treatment with Oncologist, Dr. Bae Prophylactic measure carafate 1g PO QID chemical VTE prophylaxis contraindicated due to thrombocytopenia PT eval for weakness neutropenic precautions
[2018-05-24] MEDS ORDERED: Tolvaptan 15 MG TAB PO SCH (17:45)
[2018-05-24 20:22] LABS: BLOOD UREA NITROGEN 9 mg/dL (9-20); CALCIUM 9.9 mg/dl (8.6-10.4); GFR NON-AFRICAN AMERICAN > 60
--- NOTE | 2018-05-24 23:52 | CP.PCM.PN ---
Subjective - Date & Time of Evaluation Date of Evaluation: 05/24/18 Time of Evaluation: 13:00 - Subjective Subjective: Confused, daughter at bedside. Objective - Vital Signs/Intake and Output Vital Signs (last 24 hours): Temp Pulse Resp BP Pulse Ox 98.8 F 106 H 20 112/72 97 05/24/18 16:00 05/24/18 16:00 05/24/18 16:00 05/24/18 16:00 05/24/18 16:00 - Medications Medications: Current Medications Acetaminophen (Tylenol 325mg Tab) 650 mg PO Q6 PRN PRN Reason: Fever >100.4 F Last Admin: 05/18/18 00:56 Dose: 650 mg Acetaminophen (Tylenol 650 Mg Supp) 650 mg [place] Q6 PRN PRN Reason: Pain, moderate (4-7) Fentanyl (Duragesic) 1 patch TD Q72H [facility] Last Admin: 05/22/18 14:12 Dose: 1 patch Micafungin Sodium 100 mg/ (Sodium Chloride) 100 mls @ 100 mls/hr IV Q24H [facility] PRN Reason: Protocol Last Admin: 05/24/18 10:40 Dose: 100 mls/hr Cefepime HCl 2 gm/ Sodium (Chloride) 100 mls @ 100 mls/hr IVPB Q8H [facility] PRN Reason: Protocol Last Admin: 05/24/18 17:21 Dose: 100 mls/hr Acyclovir 500 mg/ Sodium (Chloride) 100 mls @ 100 mls/hr IV Q8H [facility] PRN Reason: Protocol Last Admin: 05/24/18 21:22 Dose: 100 mls/hr Potassium Chloride (K-Dur 20 Meq Er Tab) 40 meq PO BRK [facility] Last Admin: 05/24/18 08:35 Dose: 40 meq Sodium Chloride (Sodium Chloride Tab) 1 gm PO Q12 [facility] Last Admin: 05/24/18 10:41 Dose: 1 gm Sucralfate (Carafate Tab) 1 gm PO QID [facility] Last Admin: 05/24/18 21:23 Dose: 1 gm Tolvaptan (Samsca) 15 mg PO DAILY [facility] Stop: 05/26/18 17:36 Last Admin: 05/24/18 20:49 Dose: Not Given Tramadol HCl (Ultram) 50 mg PO Q6 PRN PRN Reason: Pain, moderate (4-7) Last Admin: 05/23/18 20:35 Dose: 50 mg - Labs Labs: 05/24/18 08:41 05/24/18 19:54 PT 17.3 SECONDS (9.7-12.2) H 05/08/18 18:29 INR 1.6 05/08/18 18:29 APTT 24 SECONDS (21-34) 05/08/18 18:29 - Head Exam Head Exam: ATRAUMATIC - Eye Exam Eye Exam: Normal appearance - ENT Exam ENT Exam: Mucous Membranes Dry - Respiratory Exam Respiratory Exam: NORMAL BREATHING PATTERN - Cardiovascular Exam Cardiovascular Exam: +S1, +S2 - GI/Abdominal Exam GI & Abdominal Exam: Normal Bowel Sounds Assessment and Plan (1) Pancytopenia Assessment & Plan: secondary to chemotherapy counts improving Status: Acute (2) Small cell lung cancer Assessment & Plan: stage IV outpatient chemotherapy Status: Acute
[2018-05-25] MEDS: Cefepime 2 GM in Sodium Chloride 0.9% 100 ML IVPB SCH ×3 (01:01→17:33)
[2018-05-25] MEDS: Acyclovir 500 MG in Sodium Chloride 0.9% 100 ML IV SCH ×3 (05:30→21:07)
[2018-05-25 06:59] LABS: OSMOLALITY,URINE 217 mosm/kg (300-1000)
[2018-05-25 07:00] LABS: BASO % 0.4 % (0.0-2.0); EOS % 0.1 % (0.0-4.0); HEMOGLOBIN 9.3 g/dL (12.0-18.0); LYMPH # 0.6 K/uL (1.0-4.3); LYMPH % 11.4 % (20.0-40.0); MEAN CELL VOLUME 81.4 fL (80.0-94.0); MEAN CORPUSCULAR HEMOGLOBIN 29.4 pg (27.0-31.0); MEAN CORPUSCULAR HGB CONC 36.1 g/dL (33.0-37.0); MEAN PLATELET VOLUME 8.9 fL (7.2-11.7); MONO # 0.2 K/uL (0.0-0.8); MONO % 4.1 % (0.0-10.0); NEUT # 4.6 K/uL (1.8-7.0); RBC 3.17 Mil/uL (4.40-5.90); RED CELL DISTRIBUTION WIDTH 14.9 % (11.5-14.5); WHITE BLOOD COUNT 5.5 K/uL (4.8-10.8)
[2018-05-25 08:00] LABS: ALBUMIN 3.9 g/dL (3.5-5.0); ALT/SGPT 31 U/L (21-72); AST/SGOT 49 U/L (17-59); BLOOD UREA NITROGEN 12 mg/dL (9-20); GFR NON-AFRICAN AMERICAN > 60
[2018-05-25] MEDS: Micafungin 100 MG in Sodium Chloride 0.9% 100 ML IV SCH (08:48)
[2018-05-25] MEDS: Potassium Chloride 20 mEq ER Tab PO SCH (08:50)
--- NOTE | 2018-05-25 09:37 | CP.PCM.PN ---
Subjective - Date & Time of Evaluation Date of Evaluation: 05/25/18 Time of Evaluation: 07:00 - Subjective Subjective: clinically same Objective - Vital Signs/Intake and Output Vital Signs (last 24 hours): Temp Pulse Resp BP Pulse Ox 98.7 F 110 H 20 111/73 98 05/25/18 00:00 05/25/18 00:00 05/25/18 00:00 05/25/18 00:00 05/25/18 00:00 - Medications Medications: Current Medications Acetaminophen (Tylenol 325mg Tab) 650 mg PO Q6 PRN PRN Reason: Fever >100.4 F Last Admin: 05/18/18 00:56 Dose: 650 mg Acetaminophen (Tylenol 650 Mg Supp) 650 mg [place] Q6 PRN PRN Reason: Pain, moderate (4-7) Fentanyl (Duragesic) 1 patch TD Q72H [facility] Last Admin: 05/22/18 14:12 Dose: 1 patch Micafungin Sodium 100 mg/ (Sodium Chloride) 100 mls @ 100 mls/hr IV Q24H [facility] PRN Reason: Protocol Last Admin: 05/25/18 08:48 Dose: 100 mls/hr Cefepime HCl 2 gm/ Sodium (Chloride) 100 mls @ 100 mls/hr IVPB Q8H [facility] PRN Reason: Protocol Last Admin: 05/25/18 08:47 Dose: 100 mls/hr Acyclovir 500 mg/ Sodium (Chloride) 100 mls @ 100 mls/hr IV Q8H [facility] PRN Reason: Protocol Last Admin: 05/25/18 05:30 Dose: 100 mls/hr Potassium Chloride (K-Dur 20 Meq Er Tab) 40 meq PO BRK [facility] Last Admin: 05/25/18 08:50 Dose: Not Given Sodium Chloride (Sodium Chloride Tab) 1 gm PO Q12 [facility] Last Admin: 05/24/18 10:41 Dose: 1 gm Sucralfate (Carafate Tab) 1 gm PO QID [facility] Last Admin: 05/24/18 21:23 Dose: 1 gm Tolvaptan (Samsca) 15 mg PO DAILY [facility] Stop: 05/26/18 17:36 Last Admin: 05/24/18 20:49 Dose: Not Given Tramadol HCl (Ultram) 50 mg PO Q6 PRN PRN Reason: Pain, moderate (4-7) Last Admin: 05/23/18 20:35 Dose: 50 mg - Labs Labs: 05/25/18 06:53 05/25/18 06:53 PT 17.3 SECONDS (9.7-12.2) H 05/08/18 18:29 INR 1.6 05/08/18 18:29 APTT 24 SECONDS (21-34) 05/08/18 18:29 - Constitutional Appears: Well - Head Exam Head Exam: ATRAUMATIC, NORMAL INSPECTION, NORMOCEPHALIC - Eye Exam Eye Exam: EOMI, Normal appearance, PERRL Pupil Exam: NORMAL ACCOMODATION, PERRL - ENT Exam ENT Exam: Mucous Membranes Moist, Normal Exam - Neck Exam Neck Exam: Full ROM, Normal Inspection. absent: Lymphadenopathy - Respiratory Exam Respiratory Exam: Decreased Breath Sounds - Cardiovascular Exam Cardiovascular Exam: REGULAR RHYTHM, +S1, +S2 - GI/Abdominal Exam GI & Abdominal Exam: Soft, Diminished Bowel Sounds - Rectal Exam Rectal Exam: Deferred Assessment and Plan (1) Anemia Status: Acute (2) Electrolyte imbalance Status: Acute (3) Leukopenia Status: Acute (4) Metastatic adenocarcinoma Status: Acute (5) Metastatic cancer Status: Acute (6) Metastatic cancer to liver Status: Acute (7) Neutropenic fever Status: Acute (8) Pancytopenia Status: Acute (9) SIADH (syndrome of inappropriate ADH production) Status: Acute (10) Septic shock Status: Acute (11) Small cell lung cancer Status: Acute (12) Abdominal colic Status: Acute (13) Abdominal pain Status: Acute (14) CAD (coronary artery disease) Status: Acute (15) Diplopia Status: Acute (16) Disorder of vision Status: Acute (17) Dizziness Status: Acute (18) Hepatomegaly Status: Acute (19) Hiccups Status: Acute (20) Hypertension Status: Acute (21) Hyponatremia Status: Acute (22) Hyponatremia with decreased serum osmolality Status: Acute (23) Intractable hiccups Status: Acute (24) Leg cramps Status: Acute (25) Otitis media Status: Acute (26) Pancytopenia Status: Acute (27) S/P CABG (coronary artery bypass graft) Status: Acute (28) SIADH (syndrome of inappropriate ADH production) Status: Acute (29) Thrombocytopenia Status: Acute
--- NOTE | 2018-05-25 09:38 | CP.PCM.PN ---
Subjective - Date & Time of Evaluation Date of Evaluation: 05/25/18 Time of Evaluation: 09:34 - Subjective Subjective: PGY3 progress note for Dr. Debo Mccartney Pt seen and examined at bedside. No acute events overnight. Patient is resting comfortably in bed but is more confused this morning. Patient denies having any CP, SOB, abd pain, N/V/D/C, F/C. Objective - Vital Signs/Intake and Output Vital Signs (last 24 hours): Temp Pulse Resp BP Pulse Ox 98.7 F 110 H 20 111/73 98 05/25/18 00:00 05/25/18 00:00 05/25/18 00:00 05/25/18 00:00 05/25/18 00:00 - Medications Medications: Current Medications Acetaminophen (Tylenol 325mg Tab) 650 mg PO Q6 PRN PRN Reason: Fever >100.4 F Last Admin: 05/18/18 00:56 Dose: 650 mg Acetaminophen (Tylenol 650 Mg Supp) 650 mg [place] Q6 PRN PRN Reason: Pain, moderate (4-7) Fentanyl (Duragesic) 1 patch TD Q72H [facility] Last Admin: 05/22/18 14:12 Dose: 1 patch Micafungin Sodium 100 mg/ (Sodium Chloride) 100 mls @ 100 mls/hr IV Q24H [facility] PRN Reason: Protocol Last Admin: 05/25/18 08:48 Dose: 100 mls/hr Cefepime HCl 2 gm/ Sodium (Chloride) 100 mls @ 100 mls/hr IVPB Q8H [facility] PRN Reason: Protocol Last Admin: 05/25/18 08:47 Dose: 100 mls/hr Acyclovir 500 mg/ Sodium (Chloride) 100 mls @ 100 mls/hr IV Q8H [facility] PRN Reason: Protocol Last Admin: 05/25/18 05:30 Dose: 100 mls/hr Potassium Chloride (K-Dur 20 Meq Er Tab) 40 meq PO BRK [facility] Last Admin: 05/25/18 08:50 Dose: Not Given Sodium Chloride (Sodium Chloride Tab) 1 gm PO Q12 [facility] Last Admin: 05/24/18 10:41 Dose: 1 gm Sucralfate (Carafate Tab) 1 gm PO QID [facility] Last Admin: 05/24/18 21:23 Dose: 1 gm Tolvaptan (Samsca) 15 mg PO DAILY [facility] Stop: 05/26/18 17:36 Last Admin: 05/24/18 20:49 Dose: Not Given Tramadol HCl (Ultram) 50 mg PO Q6 PRN PRN Reason: Pain, moderate (4-7) Last Admin: 05/23/18 20:35 Dose: 50 mg - Labs Labs: 05/25/18 06:53 05/25/18 06:53 PT 17.3 SECONDS (9.7-12.2) H 05/08/18 18:29 INR 1.6 05/08/18 18:29 APTT 24 SECONDS (21-34) 05/08/18 18:29 - Constitutional Appears: Non-toxic, No Acute Distress - Head Exam Head Exam: ATRAUMATIC, NORMOCEPHALIC - Eye Exam Eye Exam: EOMI Pupil Exam: NORMAL ACCOMODATION, PERRL - ENT Exam ENT Exam: Mucous Membranes Moist - Respiratory Exam Respiratory Exam: Clear to Ausculation Bilateral. absent: Accessory Muscle Use , Rales, Rhonchi, Wheezes, Respiratory Distress - Cardiovascular Exam Cardiovascular Exam: REGULAR RHYTHM, +S1, +S2. absent: Gallop, Rubs, Murmur - GI/Abdominal Exam GI & Abdominal Exam: Soft, Normal Bowel Sounds. absent: Distended, Firm, Guarding, Rigid, Tenderness, Organomegaly - Extremities Exam Extremities Exam: absent: Pedal Edema, Tenderness - Neurological Exam Neurological Exam: Alert, Awake, CN II-XII Intact. absent: Oriented x3 - Psychiatric Exam Psychiatric exam: Flat Affect Additional comments: Patient is A&Ox 1 to person. He initially refused examination by me because he stated that it is "illegal" for me to examine him. However, with help of nurse Levy patient is more compliant with physical examination. - Skin Skin Exam: Dry, Intact, Normal Color, Warm Assessment and Plan - Assessment and Plan (Free Text) Assessment: Pancytopenia secondary to chemotherapy afebrile blood and urine culture negative Onc Consult: Dr. Bae --> help appreciated - Spoke with Dr. Bae: patient's platelets are 4 (05/18/18) --> ordered 2 bags of platelets for transfusion - Platelets (05/23/18): 7 --> 1 unit platelets ordered for transfusion - 05/25/18: Stable cell count this morning Medications * Meropenem IV q8h - discontinued * Tobramycin 250mg q24h started 05/09/18 - discontinued on 05/23/18 * Vancomycin 1gm q12h started 05/13/18 - discontinued * Micafungin 100mg IV q24h started 05/09/18 * Acyclovir 400mg po bid started 05/18/18 * Cefepime 2gm q8h started 05/18/18 * Holding Granix for now as WBC count improving per Dr. Bae Hyponatremia secondary to SIADH 05/25/18: Pt received one dose of tolvaptan 15 mg yesterday. This morning, Na is 131 indicating correction of Na was quicker than 8 mEq/d. Will discuss case with Dr. Escobedo for giving free water and holding further Tolvaptan doses. Repeat urine osmolality is 217. urine Na is 17 Nephrology Consult: Dr. Escobedo --> help appreciated - spoke with Dr. Escobedo - gave a one time dose of Tolvaptan 15mg 05/24 will continue to monitor Na - uric acid: 1.6 (low) - Sodium 1g PO q12h -hold Continue fluid restriction 1L Electrolyte abnormality Will continue to monitor and correct as needed Will hold daily K-Dur dose as potassium is normal Small Cell Lung Cancer outpatient treatment with Oncologist, Dr. Bae Prophylactic measure carafate 1g PO QID chemical VTE prophylaxis contraindicated due to thrombocytopenia PT eval for weakness All medical management per Dr. Debo Mccartney
--- NOTE | 2018-05-25 13:08 | CP.PCM.PN ---
Subjective - Date & Time of Evaluation Date of Evaluation: 05/25/18 Time of Evaluation: 13:05 - Subjective Subjective: given tovalptan 1 dose 05/24 for SIADH; good response but Na goal over-reached Now on D5W fluids Morfe alert, still confused Will need to follow up Na levels closely Objective - Vital Signs/Intake and Output Vital Signs (last 24 hours): Temp Pulse Resp BP Pulse Ox 98.7 F 110 H 20 111/73 98 05/25/18 00:00 05/25/18 00:00 05/25/18 00:00 05/25/18 00:00 05/25/18 00:00 - Medications Medications: Current Medications Acetaminophen (Tylenol 325mg Tab) 650 mg PO Q6 PRN PRN Reason: Fever >100.4 F Last Admin: 05/18/18 00:56 Dose: 650 mg Acetaminophen (Tylenol 650 Mg Supp) 650 mg [place] Q6 PRN PRN Reason: Pain, moderate (4-7) Fentanyl (Duragesic) 1 patch TD Q72H [facility] Last Admin: 05/22/18 14:12 Dose: 1 patch Micafungin Sodium 100 mg/ (Sodium Chloride) 100 mls @ 100 mls/hr IV Q24H AWILDA PRN Reason: Protocol Last Admin: 05/25/18 08:48 Dose: 100 mls/hr Cefepime HCl 2 gm/ Sodium (Chloride) 100 mls @ 100 mls/hr IVPB Q8H AWILDA PRN Reason: Protocol Last Admin: 05/25/18 08:47 Dose: 100 mls/hr Acyclovir 500 mg/ Sodium (Chloride) 100 mls @ 100 mls/hr IV Q8H AWILDA PRN Reason: Protocol Last Admin: 05/25/18 05:30 Dose: 100 mls/hr Dextrose (Dextrose 5% In Water 1000 Ml) 1,000 mls @ 50 mls/hr IV .Q20H [facility] Last Admin: 05/25/18 11:51 Dose: 50 mls/hr Potassium Chloride (K-Dur 20 Meq Er Tab) 40 meq PO BRK [facility] Last Admin: 05/25/18 08:50 Dose: Not Given Sodium Chloride (Sodium Chloride Tab) 1 gm PO Q12 [facility] Last Admin: 05/24/18 10:41 Dose: 1 gm Sucralfate (Carafate Tab) 1 gm PO QID [facility] Last Admin: 05/25/18 11:51 Dose: 1 gm Tolvaptan (Samsca) 15 mg PO DAILY [facility] Stop: 05/26/18 17:36 Last Admin: 05/24/18 20:49 Dose: Not Given Tramadol HCl (Ultram) 50 mg PO Q6 PRN PRN Reason: Pain, moderate (4-7) Last Admin: 05/23/18 20:35 Dose: 50 mg - Labs Labs: 05/25/18 06:53 05/25/18 06:53 PT 17.3 SECONDS (9.7-12.2) H 05/08/18 18:29 INR 1.6 05/08/18 18:29 APTT 24 SECONDS (21-34) 05/08/18 18:29 - Constitutional Appears: Confused, Cachectic, Chronically Ill - Head Exam Head Exam: ATRAUMATIC, NORMAL INSPECTION - Eye Exam Eye Exam: EOMI, Normal appearance - Neck Exam Neck Exam: Normal Inspection. absent: Tenderness - Respiratory Exam Respiratory Exam: Clear to Ausculation Bilateral, NORMAL BREATHING PATTERN - Cardiovascular Exam Cardiovascular Exam: REGULAR RHYTHM, +S1 - GI/Abdominal Exam GI & Abdominal Exam: Soft. absent: Tenderness - Extremities Exam Extremities Exam: Normal Inspection. absent: Tenderness - Neurological Exam Neurological Exam: Altered - Skin Skin Exam: Dry, Warm Assessment and Plan (1) SIADH (syndrome of inappropriate ADH production) Status: Acute (2) Metastatic adenocarcinoma Status: Acute (3) Metastatic cancer Status: Acute (4) CAD (coronary artery disease) Status: Acute (5) Hyponatremia Status: Acute (6) Pancytopenia Status: Acute (7) SIADH (syndrome of inappropriate ADH production) Status: Acute - Assessment and Plan (Free Text) Plan: IV D5W now; Try to get serum Na around 126-128 by tonight Only tovalptan as needed
[2018-05-25 14:18] LABS: BLOOD UREA NITROGEN 12 mg/dL (9-20); CALCIUM 9.5 mg/dl (8.6-10.4); GFR NON-AFRICAN AMERICAN > 60
[2018-05-25 20:37] LABS: BLOOD UREA NITROGEN 14 mg/dL (9-20); CALCIUM 9.8 mg/dl (8.6-10.4); GFR NON-AFRICAN AMERICAN > 60
[2018-05-26] MEDS: Cefepime 2 GM in Sodium Chloride 0.9% 100 ML IVPB SCH ×3 (01:27→17:02)
[2018-05-26] MEDS: Acyclovir 500 MG in Sodium Chloride 0.9% 100 ML IV SCH ×3 (05:27→21:08)
[2018-05-26 07:45] LABS: BASO % 0.3 % (0.0-2.0); HEMOGLOBIN 8.5 g/dL (12.0-18.0); LYMPH # 0.6 K/uL (1.0-4.3); LYMPH % 12.8 % (20.0-40.0); MEAN CELL VOLUME 82.2 fL (80.0-94.0); MEAN CORPUSCULAR HEMOGLOBIN 29.5 pg (27.0-31.0); MEAN CORPUSCULAR HGB CONC 35.9 g/dL (33.0-37.0); MEAN PLATELET VOLUME 8.8 fL (7.2-11.7); MONO # 0.3 K/uL (0.0-0.8); MONO % 6.9 % (0.0-10.0); NEUT # 3.6 K/uL (1.8-7.0); NRBC % 0.1 % (0.0-2.0); RBC 2.89 Mil/uL (4.40-5.90); RED CELL DISTRIBUTION WIDTH 15.3 % (11.5-14.5); WHITE BLOOD COUNT 4.5 K/uL (4.8-10.8)
[2018-05-26 08:06] LABS: ALB/GLOB RATIO 1.1 (1.0-2.1); ALBUMIN 3.7 g/dL (3.5-5.0); ALT/SGPT 30 U/L (21-72); AST/SGOT 55 U/L (17-59); BLOOD UREA NITROGEN 13 mg/dL (9-20); CALCIUM 9.9 mg/dl (8.6-10.4); GFR NON-AFRICAN AMERICAN > 60
[2018-05-26] MEDS: Micafungin 100 MG in Sodium Chloride 0.9% 100 ML IV SCH (08:45)
--- NOTE | 2018-05-26 10:08 | CP.PCM.PN ---
Subjective - Date & Time of Evaluation Date of Evaluation: 05/26/18 Time of Evaluation: 10:06 - Subjective Subjective: appears same Na stabilizing at 131 now Remains on D5W BP stable Less confused Objective - Vital Signs/Intake and Output Vital Signs (last 24 hours): Temp Pulse Resp BP Pulse Ox 98.5 F 114 H 20 126/74 96 05/26/18 00:00 05/26/18 00:00 05/26/18 00:00 05/26/18 00:00 05/26/18 00:00 Intake and Output: 05/26/18 05/26/18 06:59 18:59 Intake Total 850 Balance 850 - Medications Medications: Current Medications Acetaminophen (Tylenol 325mg Tab) 650 mg PO Q6 PRN PRN Reason: Fever >100.4 F Last Admin: 05/18/18 00:56 Dose: 650 mg Acetaminophen (Tylenol 650 Mg Supp) 650 mg [place] Q6 PRN PRN Reason: Pain, moderate (4-7) Fentanyl (Duragesic) 1 patch TD Q72H [facility] Last Admin: 05/25/18 14:55 Dose: 1 patch Micafungin Sodium 100 mg/ (Sodium Chloride) 100 mls @ 100 mls/hr IV Q24H AWILDA PRN Reason: Protocol Last Admin: 05/26/18 08:45 Dose: 100 mls/hr Cefepime HCl 2 gm/ Sodium (Chloride) 100 mls @ 100 mls/hr IVPB Q8H AWILDA PRN Reason: Protocol Last Admin: 05/26/18 08:45 Dose: 100 mls/hr Acyclovir 500 mg/ Sodium (Chloride) 100 mls @ 100 mls/hr IV Q8H AWILDA PRN Reason: Protocol Last Admin: 05/26/18 05:27 Dose: 100 mls/hr Dextrose (Dextrose 5% In Water 1000 Ml) 1,000 mls @ 50 mls/hr IV .Q20H [facility] Stop: 05/27/18 04:00 Last Admin: 05/26/18 08:46 Dose: Not Given Potassium Chloride (K-Dur 20 Meq Er Tab) 40 meq PO BRK [facility] Last Admin: 05/25/18 08:50 Dose: Not Given Sodium Chloride (Sodium Chloride Tab) 1 gm PO Q12 [facility] Last Admin: 05/24/18 10:41 Dose: 1 gm Sucralfate (Carafate Tab) 1 gm PO QID [facility] Last Admin: 05/25/18 21:07 Dose: 1 gm Tolvaptan (Samsca) 15 mg PO DAILY [facility] Stop: 05/26/18 17:36 Last Admin: 05/24/18 20:49 Dose: Not Given Tramadol HCl (Ultram) 50 mg PO Q6 PRN PRN Reason: Pain, moderate (4-7) Last Admin: 05/23/18 20:35 Dose: 50 mg - Labs Labs: 05/26/18 07:29 05/26/18 07:29 PT 17.3 SECONDS (9.7-12.2) H 05/08/18 18:29 INR 1.6 05/08/18 18:29 APTT 24 SECONDS (21-34) 05/08/18 18:29 - Constitutional Appears: No Acute Distress, Cachectic, Chronically Ill - Head Exam Head Exam: ATRAUMATIC, NORMAL INSPECTION - Eye Exam Eye Exam: EOMI, Normal appearance - Respiratory Exam Respiratory Exam: Clear to Ausculation Bilateral, NORMAL BREATHING PATTERN - GI/Abdominal Exam GI & Abdominal Exam: Soft, Tenderness - Extremities Exam Extremities Exam: Normal Inspection. absent: Tenderness - Neurological Exam Neurological Exam: Awake, CN II-XII Intact - Skin Skin Exam: Dry, Warm Assessment and Plan (1) SIADH (syndrome of inappropriate ADH production) Status: Acute (2) Metastatic adenocarcinoma Status: Acute (3) Metastatic cancer Status: Acute (4) CAD (coronary artery disease) Status: Acute (5) Hyponatremia Status: Acute (6) Pancytopenia Status: Acute (7) SIADH (syndrome of inappropriate ADH production) Status: Acute - Assessment and Plan (Free Text) Plan: stop IV free water serial chemistries fluid restriction
--- NOTE | 2018-05-26 23:11 | CP.PCM.PN ---
Subjective - Date & Time of Evaluation Date of Evaluation: 05/26/18 Time of Evaluation: 07:00 - Subjective Subjective: clinically same Objective - Vital Signs/Intake and Output Vital Signs (last 24 hours): Temp Pulse Resp BP Pulse Ox 98.7 F 109 H 20 125/80 98 05/26/18 16:00 05/26/18 16:00 05/26/18 16:00 05/26/18 16:00 05/26/18 16:00 Intake and Output: 05/26/18 05/27/18 18:59 06:59 Intake Total 800 850 Balance 800 850 - Medications Medications: Current Medications Acetaminophen (Tylenol 325mg Tab) 650 mg PO Q6 PRN PRN Reason: Fever >100.4 F Last Admin: 05/18/18 00:56 Dose: 650 mg Acetaminophen (Tylenol 650 Mg Supp) 650 mg [place] Q6 PRN PRN Reason: Pain, moderate (4-7) Fentanyl (Duragesic) 1 patch TD Q72H [facility] Last Admin: 05/25/18 14:55 Dose: 1 patch Cefepime HCl 2 gm/ Sodium (Chloride) 100 mls @ 100 mls/hr IVPB Q8H AWILDA PRN Reason: Protocol Last Admin: 05/26/18 17:02 Dose: 100 mls/hr Acyclovir 500 mg/ Sodium (Chloride) 100 mls @ 100 mls/hr IV Q8H AWILDA PRN Reason: Protocol Last Admin: 05/26/18 21:08 Dose: 100 mls/hr Potassium Chloride (K-Dur 20 Meq Er Tab) 40 meq PO BRK [facility] Last Admin: 05/25/18 08:50 Dose: Not Given Sodium Chloride (Sodium Chloride Tab) 1 gm PO Q12 [facility] Last Admin: 05/24/18 10:41 Dose: 1 gm Sucralfate (Carafate Tab) 1 gm PO QID [facility] Last Admin: 05/26/18 21:08 Dose: 1 gm Tramadol HCl (Ultram) 50 mg PO Q6 PRN PRN Reason: Pain, moderate (4-7) Last Admin: 05/23/18 20:35 Dose: 50 mg - Labs Labs: 05/26/18 07:29 05/26/18 07:29 PT 17.3 SECONDS (9.7-12.2) H 05/08/18 18:29 INR 1.6 05/08/18 18:29 APTT 24 SECONDS (21-34) 05/08/18 18:29 - Constitutional Appears: Well - Head Exam Head Exam: ATRAUMATIC, NORMAL INSPECTION, NORMOCEPHALIC - Eye Exam Eye Exam: EOMI, Normal appearance, PERRL Pupil Exam: NORMAL ACCOMODATION, PERRL - ENT Exam ENT Exam: Mucous Membranes Moist, Normal Exam - Neck Exam Neck Exam: Full ROM, Normal Inspection. absent: Lymphadenopathy - Respiratory Exam Respiratory Exam: Decreased Breath Sounds - Cardiovascular Exam Cardiovascular Exam: REGULAR RHYTHM, +S1, +S2 - GI/Abdominal Exam GI & Abdominal Exam: Soft, Diminished Bowel Sounds - Rectal Exam Rectal Exam: Deferred Assessment and Plan (1) Anemia Status: Acute (2) Electrolyte imbalance Status: Acute (3) Leukopenia Status: Acute (4) Metastatic adenocarcinoma Status: Acute (5) Metastatic cancer Status: Acute (6) Metastatic cancer to liver Status: Acute (7) Neutropenic fever Status: Acute (8) Pancytopenia Status: Acute (9) SIADH (syndrome of inappropriate ADH production) Status: Acute (10) Septic shock Status: Acute (11) Small cell lung cancer Status: Acute (12) Abdominal colic Status: Acute (13) Abdominal pain Status: Acute (14) CAD (coronary artery disease) Status: Acute (15) Diplopia Status: Acute (16) Disorder of vision Status: Acute (17) Dizziness Status: Acute (18) Hepatomegaly Status: Acute (19) Hiccups Status: Acute (20) Hypertension Status: Acute (21) Hyponatremia Status: Acute (22) Hyponatremia with decreased serum osmolality Status: Acute (23) Intractable hiccups Status: Acute (24) Leg cramps Status: Acute (25) Otitis media Status: Acute (26) Pancytopenia Status: Acute (27) S/P CABG (coronary artery bypass graft) Status: Acute (28) SIADH (syndrome of inappropriate ADH production) Status: Acute (29) Thrombocytopenia Status: Acute
[2018-05-27] MEDS: Cefepime 2 GM in Sodium Chloride 0.9% 100 ML IVPB SCH ×3 (00:29→17:14)
[2018-05-27] MEDS: Acyclovir 500 MG in Sodium Chloride 0.9% 100 ML IV SCH ×3 (04:28→21:34)
[2018-05-27 08:48] LABS: BASO % 0.3 % (0.0-2.0); EOS % 0.1 % (0.0-4.0); HEMOGLOBIN 8.3 g/dL (12.0-18.0); LYMPH # 0.5 K/uL (1.0-4.3); LYMPH % 13.7 % (20.0-40.0); MEAN CELL VOLUME 82.2 fL (80.0-94.0); MEAN CORPUSCULAR HEMOGLOBIN 28.9 pg (27.0-31.0); MEAN CORPUSCULAR HGB CONC 35.2 g/dL (33.0-37.0); MONO # 0.3 K/uL (0.0-0.8); MONO % 7.9 % (0.0-10.0); NEUT # 3.1 K/uL (1.8-7.0); NRBC % 0.2 % (0.0-2.0); RBC 2.87 Mil/uL (4.40-5.90); RED CELL DISTRIBUTION WIDTH 14.8 % (11.5-14.5); WHITE BLOOD COUNT 3.9 K/uL (4.8-10.8)
[2018-05-27 09:00] LABS: ALBUMIN 3.7 g/dL (3.5-5.0); ALT/SGPT 34 U/L (21-72); AST/SGOT 60 U/L (17-59); BLOOD UREA NITROGEN 10 mg/dL (9-20); CALCIUM 9.7 mg/dl (8.6-10.4); GFR NON-AFRICAN AMERICAN > 60
[2018-05-27] MEDS: Micafungin 100 MG in Sodium Chloride 0.9% 100 ML IV SCH (09:59)
--- NOTE | 2018-05-27 10:54 | CP.PCM.PN ---
Subjective - Date & Time of Evaluation Date of Evaluation: 05/27/18 Time of Evaluation: 07:00 - Subjective Subjective: clinically same Objective - Vital Signs/Intake and Output Vital Signs (last 24 hours): Temp Pulse Resp BP Pulse Ox 98.2 F 86 20 132/71 98 05/27/18 08:00 05/27/18 08:00 05/27/18 08:00 05/27/18 08:00 05/27/18 08:00 Intake and Output: 05/27/18 05/27/18 06:59 18:59 Intake Total 850 240 Balance 850 240 - Medications Medications: Current Medications Acetaminophen (Tylenol 325mg Tab) 650 mg PO Q6 PRN PRN Reason: Fever >100.4 F Last Admin: 05/18/18 00:56 Dose: 650 mg Acetaminophen (Tylenol 650 Mg Supp) 650 mg [place] Q6 PRN PRN Reason: Pain, moderate (4-7) Fentanyl (Duragesic) 1 patch TD Q72H [facility] Last Admin: 05/25/18 14:55 Dose: 1 patch Cefepime HCl 2 gm/ Sodium (Chloride) 100 mls @ 100 mls/hr IVPB Q8H AWILDA PRN Reason: Protocol Last Admin: 05/27/18 08:11 Dose: 100 mls/hr Acyclovir 500 mg/ Sodium (Chloride) 100 mls @ 100 mls/hr IV Q8H AWILDA PRN Reason: Protocol Last Admin: 05/27/18 04:28 Dose: 100 mls/hr Micafungin Sodium 100 mg/ (Sodium Chloride) 100 mls @ 100 mls/hr IV Q24H AWILDA PRN Reason: Protocol Last Admin: 05/27/18 09:59 Dose: 100 mls/hr Potassium Chloride (K-Dur 20 Meq Er Tab) 40 meq PO BRK [facility] Last Admin: 05/25/18 08:50 Dose: Not Given Sodium Chloride (Sodium Chloride Tab) 1 gm PO Q12 [facility] Last Admin: 05/24/18 10:41 Dose: 1 gm Sucralfate (Carafate Tab) 1 gm PO QID [facility] Last Admin: 05/27/18 09:23 Dose: 1 gm Tramadol HCl (Ultram) 50 mg PO Q6 PRN PRN Reason: Pain, moderate (4-7) Last Admin: 05/23/18 20:35 Dose: 50 mg - Labs Labs: 05/27/18 08:29 05/27/18 08:29 PT 17.3 SECONDS (9.7-12.2) H 05/08/18 18:29 INR 1.6 05/08/18 18:29 APTT 24 SECONDS (21-34) 05/08/18 18:29 - Constitutional Appears: Well - Head Exam Head Exam: ATRAUMATIC, NORMAL INSPECTION, NORMOCEPHALIC - Eye Exam Eye Exam: EOMI, Normal appearance, PERRL Pupil Exam: NORMAL ACCOMODATION, PERRL - ENT Exam ENT Exam: Mucous Membranes Moist, Normal Exam - Neck Exam Neck Exam: Full ROM, Normal Inspection. absent: Lymphadenopathy - Respiratory Exam Respiratory Exam: Decreased Breath Sounds - Cardiovascular Exam Cardiovascular Exam: REGULAR RHYTHM, +S1, +S2 - GI/Abdominal Exam GI & Abdominal Exam: Soft, Diminished Bowel Sounds - Rectal Exam Rectal Exam: Deferred Assessment and Plan (1) Anemia Status: Acute (2) Electrolyte imbalance Status: Acute (3) Leukopenia Status: Acute (4) Metastatic adenocarcinoma Status: Acute (5) Metastatic cancer Status: Acute (6) Metastatic cancer to liver Status: Acute (7) Neutropenic fever Status: Acute (8) Pancytopenia Status: Acute (9) SIADH (syndrome of inappropriate ADH production) Status: Acute (10) Septic shock Status: Acute (11) Small cell lung cancer Status: Acute (12) Abdominal colic Status: Acute (13) Abdominal pain Status: Acute (14) CAD (coronary artery disease) Status: Acute (15) Diplopia Status: Acute (16) Disorder of vision Status: Acute (17) Dizziness Status: Acute (18) Hepatomegaly Status: Acute (19) Hiccups Status: Acute (20) Hypertension Status: Acute (21) Hyponatremia Status: Acute (22) Hyponatremia with decreased serum osmolality Status: Acute (23) Intractable hiccups Status: Acute (24) Leg cramps Status: Acute (25) Otitis media Status: Acute (26) Pancytopenia Status: Acute (27) S/P CABG (coronary artery bypass graft) Status: Acute (28) SIADH (syndrome of inappropriate ADH production) Status: Acute (29) Thrombocytopenia Status: Acute
--- NOTE | 2018-05-27 23:24 | CP.PCM.PN ---
Subjective - Date & Time of Evaluation Date of Evaluation: 05/25/18 Time of Evaluation: 11:00 - Subjective Subjective: Mental status improved Objective - Vital Signs/Intake and Output Vital Signs (last 24 hours): Temp Pulse Resp BP Pulse Ox 98.3 F 92 H 20 136/73 98 05/27/18 16:07 05/27/18 16:07 05/27/18 16:07 05/27/18 16:07 05/27/18 16:07 Intake and Output: 05/27/18 05/28/18 18:59 06:59 Intake Total 940 100 Balance 940 100 - Medications Medications: Current Medications Acetaminophen (Tylenol 325mg Tab) 650 mg PO Q6 PRN PRN Reason: Fever >100.4 F Last Admin: 05/18/18 00:56 Dose: 650 mg Acetaminophen (Tylenol 650 Mg Supp) 650 mg [place] Q6 PRN PRN Reason: Pain, moderate (4-7) Fentanyl (Duragesic) 1 patch TD Q72H [facility] Acyclovir 500 mg/ Sodium (Chloride) 100 mls @ 100 mls/hr IV Q8H AWILDA PRN Reason: Protocol Last Admin: 05/27/18 21:34 Dose: 100 mls/hr Micafungin Sodium 100 mg/ (Sodium Chloride) 100 mls @ 100 mls/hr IV Q24H AWILDA PRN Reason: Protocol Last Admin: 05/27/18 09:59 Dose: 100 mls/hr Potassium Chloride (K-Dur 20 Meq Er Tab) 40 meq PO BRK [facility] Last Admin: 05/25/18 08:50 Dose: Not Given Sodium Chloride (Sodium Chloride Tab) 1 gm PO Q12 [facility] Last Admin: 05/24/18 10:41 Dose: 1 gm Sucralfate (Carafate Tab) 1 gm PO QID [facility] Last Admin: 05/27/18 21:34 Dose: 1 gm Tramadol HCl (Ultram) 50 mg PO Q6 PRN PRN Reason: Pain, moderate (4-7) Last Admin: 05/23/18 20:35 Dose: 50 mg - Labs Labs: 05/27/18 08:29 05/27/18 08:29 PT 17.3 SECONDS (9.7-12.2) H 05/08/18 18:29 INR 1.6 05/08/18 18:29 APTT 24 SECONDS (21-34) 05/08/18 18:29 - Head Exam Head Exam: ATRAUMATIC - Eye Exam Eye Exam: Normal appearance - ENT Exam ENT Exam: Mucous Membranes Dry - Respiratory Exam Respiratory Exam: NORMAL BREATHING PATTERN - Cardiovascular Exam Cardiovascular Exam: +S1, +S2 - GI/Abdominal Exam GI & Abdominal Exam: Normal Bowel Sounds Assessment and Plan (1) Pancytopenia Assessment & Plan: counts improved s/p growth factor and transfusion support Status: Acute (2) Small cell lung cancer Assessment & Plan: stage IV outpatient treatment Status: Acute
--- NOTE | 2018-05-27 23:25 | CP.PCM.PN ---
Subjective - Date & Time of Evaluation Date of Evaluation: 05/26/18 Time of Evaluation: 17:10 - Subjective Subjective: No complaints. Objective - Vital Signs/Intake and Output Vital Signs (last 24 hours): Temp Pulse Resp BP Pulse Ox 98.3 F 92 H 20 136/73 98 05/27/18 16:07 05/27/18 16:07 05/27/18 16:07 05/27/18 16:07 05/27/18 16:07 Intake and Output: 05/27/18 05/28/18 18:59 06:59 Intake Total 940 100 Balance 940 100 - Medications Medications: Current Medications Acetaminophen (Tylenol 325mg Tab) 650 mg PO Q6 PRN PRN Reason: Fever >100.4 F Last Admin: 05/18/18 00:56 Dose: 650 mg Acetaminophen (Tylenol 650 Mg Supp) 650 mg [place] Q6 PRN PRN Reason: Pain, moderate (4-7) Fentanyl (Duragesic) 1 patch TD Q72H [facility] Acyclovir 500 mg/ Sodium (Chloride) 100 mls @ 100 mls/hr IV Q8H AWILDA PRN Reason: Protocol Last Admin: 05/27/18 21:34 Dose: 100 mls/hr Micafungin Sodium 100 mg/ (Sodium Chloride) 100 mls @ 100 mls/hr IV Q24H AWILDA PRN Reason: Protocol Last Admin: 05/27/18 09:59 Dose: 100 mls/hr Potassium Chloride (K-Dur 20 Meq Er Tab) 40 meq PO BRK [facility] Last Admin: 05/25/18 08:50 Dose: Not Given Sodium Chloride (Sodium Chloride Tab) 1 gm PO Q12 [facility] Last Admin: 05/24/18 10:41 Dose: 1 gm Sucralfate (Carafate Tab) 1 gm PO QID [facility] Last Admin: 05/27/18 21:34 Dose: 1 gm Tramadol HCl (Ultram) 50 mg PO Q6 PRN PRN Reason: Pain, moderate (4-7) Last Admin: 05/23/18 20:35 Dose: 50 mg - Labs Labs: 05/27/18 08:29 05/27/18 08:29 PT 17.3 SECONDS (9.7-12.2) H 05/08/18 18:29 INR 1.6 05/08/18 18:29 APTT 24 SECONDS (21-34) 05/08/18 18:29 - Head Exam Head Exam: ATRAUMATIC - Eye Exam Eye Exam: Normal appearance - ENT Exam ENT Exam: Mucous Membranes Dry - Respiratory Exam Respiratory Exam: NORMAL BREATHING PATTERN - Cardiovascular Exam Cardiovascular Exam: +S1, +S2 - GI/Abdominal Exam GI & Abdominal Exam: Normal Bowel Sounds Assessment and Plan (1) Pancytopenia Assessment & Plan: improved s/p growth factor/transfusion support Status: Acute (2) Small cell lung cancer Assessment & Plan: stage IV outpatient treatment Status: Acute
--- NOTE | 2018-05-27 23:26 | CP.PCM.PN ---
Subjective - Date & Time of Evaluation Date of Evaluation: 05/27/18 Time of Evaluation: 19:00 - Subjective Subjective: Feeling better Objective - Vital Signs/Intake and Output Vital Signs (last 24 hours): Temp Pulse Resp BP Pulse Ox 98.3 F 92 H 20 136/73 98 05/27/18 16:07 05/27/18 16:07 05/27/18 16:07 05/27/18 16:07 05/27/18 16:07 Intake and Output: 05/27/18 05/28/18 18:59 06:59 Intake Total 940 100 Balance 940 100 - Medications Medications: Current Medications Acetaminophen (Tylenol 325mg Tab) 650 mg PO Q6 PRN PRN Reason: Fever >100.4 F Last Admin: 05/18/18 00:56 Dose: 650 mg Acetaminophen (Tylenol 650 Mg Supp) 650 mg [place] Q6 PRN PRN Reason: Pain, moderate (4-7) Fentanyl (Duragesic) 1 patch TD Q72H [facility] Acyclovir 500 mg/ Sodium (Chloride) 100 mls @ 100 mls/hr IV Q8H AWILDA PRN Reason: Protocol Last Admin: 05/27/18 21:34 Dose: 100 mls/hr Micafungin Sodium 100 mg/ (Sodium Chloride) 100 mls @ 100 mls/hr IV Q24H AWILDA PRN Reason: Protocol Last Admin: 05/27/18 09:59 Dose: 100 mls/hr Potassium Chloride (K-Dur 20 Meq Er Tab) 40 meq PO BRK [facility] Last Admin: 05/25/18 08:50 Dose: Not Given Sodium Chloride (Sodium Chloride Tab) 1 gm PO Q12 [facility] Last Admin: 05/24/18 10:41 Dose: 1 gm Sucralfate (Carafate Tab) 1 gm PO QID [facility] Last Admin: 05/27/18 21:34 Dose: 1 gm Tramadol HCl (Ultram) 50 mg PO Q6 PRN PRN Reason: Pain, moderate (4-7) Last Admin: 05/23/18 20:35 Dose: 50 mg - Labs Labs: 05/27/18 08:29 05/27/18 08:29 PT 17.3 SECONDS (9.7-12.2) H 05/08/18 18:29 INR 1.6 05/08/18 18:29 APTT 24 SECONDS (21-34) 05/08/18 18:29 - Head Exam Head Exam: ATRAUMATIC - Eye Exam Eye Exam: Normal appearance - ENT Exam ENT Exam: Mucous Membranes Dry - Respiratory Exam Respiratory Exam: NORMAL BREATHING PATTERN - Cardiovascular Exam Cardiovascular Exam: +S1, +S2 - GI/Abdominal Exam GI & Abdominal Exam: Normal Bowel Sounds Assessment and Plan (1) Pancytopenia Assessment & Plan: secondary to chemotherapy improved transfuse plt if < 10,000 Status: Acute (2) Small cell lung cancer Assessment & Plan: stage IV outpatient treatment Status: Acute
[2018-05-28] MEDS: Acyclovir 500 MG in Sodium Chloride 0.9% 100 ML IV SCH ×2 (04:15→14:02)
[2018-05-28 07:10] LABS: BASO % 0.3 % (0.0-2.0); EOS % 0.2 % (0.0-4.0); LYMPH # 0.4 K/uL (1.0-4.3); LYMPH % 10.9 % (20.0-40.0); MEAN CELL VOLUME 81.7 fL (80.0-94.0); MEAN CORPUSCULAR HEMOGLOBIN 29.3 pg (27.0-31.0); MEAN CORPUSCULAR HGB CONC 35.8 g/dL (33.0-37.0); MEAN PLATELET VOLUME 8.6 fL (7.2-11.7); MONO # 0.3 K/uL (0.0-0.8); MONO % 6.9 % (0.0-10.0); NEUT # 3.2 K/uL (1.8-7.0); NEUT % 81.7 % (50.0-75.0); RBC 2.73 Mil/uL (4.40-5.90)
--- NOTE | 2018-05-28 07:20 | CP.PCM.PN ---
Subjective - Date & Time of Evaluation Date of Evaluation: 05/28/18 Time of Evaluation: 08:00 - Subjective Subjective: Medicine progress note for Dr. Mccartney's service Patient was seen and examined in the AM. No acute events overnight. Patient is awake, oriented to self and place. Patient states he is feeling tired but well. Objective - Vital Signs/Intake and Output Vital Signs (last 24 hours): Temp Pulse Resp BP Pulse Ox 98.7 F 89 20 132/72 98 05/28/18 00:00 05/28/18 00:00 05/28/18 00:00 05/28/18 00:00 05/28/18 00:00 Intake and Output: 05/28/18 05/28/18 06:59 18:59 Intake Total 500 Balance 500 - Medications Medications: Current Medications Acetaminophen (Tylenol 325mg Tab) 650 mg PO Q6 PRN PRN Reason: Fever >100.4 F Last Admin: 05/18/18 00:56 Dose: 650 mg Acetaminophen (Tylenol 650 Mg Supp) 650 mg [place] Q6 PRN PRN Reason: Pain, moderate (4-7) Fentanyl (Duragesic) 1 patch TD Q72H [facility] Acyclovir 500 mg/ Sodium (Chloride) 100 mls @ 100 mls/hr IV Q8H [facility] PRN Reason: Protocol Last Admin: 05/28/18 04:15 Dose: 100 mls/hr Micafungin Sodium 100 mg/ (Sodium Chloride) 100 mls @ 100 mls/hr IV Q24H [facility] PRN Reason: Protocol Last Admin: 05/27/18 09:59 Dose: 100 mls/hr Potassium Chloride (K-Dur 20 Meq Er Tab) 40 meq PO BRK [facility] Last Admin: 05/25/18 08:50 Dose: Not Given Sodium Chloride (Sodium Chloride Tab) 1 gm PO Q12 [facility] Last Admin: 05/24/18 10:41 Dose: 1 gm Sucralfate (Carafate Tab) 1 gm PO QID [facility] Last Admin: 05/27/18 21:34 Dose: 1 gm Tramadol HCl (Ultram) 50 mg PO Q6 PRN PRN Reason: Pain, moderate (4-7) Last Admin: 05/23/18 20:35 Dose: 50 mg - Labs Labs: 05/28/18 06:52 09/09/18 08:29 PT 17.3 SECONDS (9.7-12.2) H 05/08/18 18:29 INR 1.6 18 18:29 APTT 24 SECONDS (21-34) 05/08/18 18:29 - Constitutional Appears: No Acute Distress, Chronically Ill - Head Exam Head Exam: ATRAUMATIC, NORMAL INSPECTION - Eye Exam Eye Exam: EOMI, Normal appearance - ENT Exam ENT Exam: Mucous Membranes Moist - Respiratory Exam Respiratory Exam: NORMAL BREATHING PATTERN - Cardiovascular Exam Cardiovascular Exam: REGULAR RHYTHM, +S1, +S2 - GI/Abdominal Exam GI & Abdominal Exam: Soft, Normal Bowel Sounds. absent: Tenderness - Extremities Exam Extremities Exam: Normal Inspection - Neurological Exam Neurological Exam: Alert, Awake - Psychiatric Exam Psychiatric exam: Normal Affect - Skin Skin Exam: Normal Color Assessment and Plan - Assessment and Plan (Free Text) Assessment: Pancytopenia secondary to chemotherapy afebrile blood and urine culture negative Onc Consult: Dr. Bae --> help appreciated - Spoke with Dr. Bae: patient's platelets are 4 (05/18/18) --> ordered 2 bags of platelets for transfusion - Platelets (05/23/18): 7 --> 1 unit platelets ordered for transfusion - per Dr. Bae transfuse platelets if <10,000 Medications * Meropenem IV q8h - discontinued * Tobramycin 250mg q24h started 05/09/18 - discontinued * Vancomycin 1gm q12h started 05/13/18 - discontinued * Micafungin 100mg IV q24h started 05/09/18 * Acyclovir 400mg po bid started 05/18/18 * Cefepime 2gm q8h started 05/18/18 * Demeclocycline 300mg po (started 05/19/18) - discontinued per Dr. Escobedo * Holding Granix for now as WBC count improving per Dr. Bae Hyponatremia secondary to SIADH Change in mental status - patient is oriented to self previously (2 days prior) patient oriented to person and place Nephrology Consult: Dr. Escobedo --> help appreciated - spoke with Dr. Escobedo - gave a one time dose of Tolvaptan 15mg 05/24 will continue to monitor Na - Serum Osmolality 464; Urine Sodium 127 (high); Urine Osmolality 463 ( high) - 05/25/18: Pt received one dose of tolvaptan 15 mg yesterday. This morning, Na is 131 indicating correction of Na was quicker than 8 mEq/d. - Repeat urine osmolality is 217. urine Na is 17 - Uric acid: 1.6 (low) - Sodium 1g PO q12h -hold Continue fluid restriction 1L Electrolyte abnormality hypokalemia, hypomagnesemia, hypophosphatemia electrolytes repleted, continue to monitor continue daily potassium 40 meq daily with breakfast Small Cell Lung Cancer outpatient treatment with Oncologist, Dr. Bae Prophylactic measure carafate 1g PO QID chemical VTE prophylaxis contraindicated due to thrombocytopenia PT eval for weakness neutropenic precautions All medical management per Dr. Debo Mccartney
[2018-05-28 07:21] LABS: ALB/GLOB RATIO 1.1 (1.0-2.1); ALBUMIN 3.8 g/dL (3.5-5.0); ALT/SGPT 33 U/L (21-72); AST/SGOT 64 U/L (17-59); BLOOD UREA NITROGEN 9 mg/dL (9-20); CALCIUM 9.7 mg/dl (8.6-10.4); GFR NON-AFRICAN AMERICAN > 60
[2018-05-28] MEDS: Micafungin 100 MG in Sodium Chloride 0.9% 100 ML IV SCH (08:55)
--- NOTE | 2018-05-28 09:42 | CP.PCM.PN ---
Subjective - Date & Time of Evaluation Date of Evaluation: 05/28/18 Time of Evaluation: 09:40 - Subjective Subjective: Remains pancytopenic Na decreased to 127 appears same as before Objective - Vital Signs/Intake and Output Vital Signs (last 24 hours): Temp Pulse Resp BP Pulse Ox 98.7 F 89 20 132/72 98 05/28/18 00:00 05/28/18 00:00 05/28/18 00:00 05/28/18 00:00 05/28/18 00:00 Intake and Output: 05/28/18 05/28/18 06:59 18:59 Intake Total 500 Balance 500 - Medications Medications: Current Medications Acetaminophen (Tylenol 325mg Tab) 650 mg PO Q6 PRN PRN Reason: Fever >100.4 F Last Admin: 05/18/18 00:56 Dose: 650 mg Acetaminophen (Tylenol 650 Mg Supp) 650 mg [place] Q6 PRN PRN Reason: Pain, moderate (4-7) Fentanyl (Duragesic) 1 patch TD Q72H [facility] Acyclovir 500 mg/ Sodium (Chloride) 100 mls @ 100 mls/hr IV Q8H [facility] PRN Reason: Protocol Last Admin: 05/28/18 04:15 Dose: 100 mls/hr Micafungin Sodium 100 mg/ (Sodium Chloride) 100 mls @ 100 mls/hr IV Q24H [facility] PRN Reason: Protocol Last Admin: 05/28/18 08:55 Dose: 100 mls/hr Cefepime HCl 2 gm/ Sodium (Chloride) 100 mls @ 100 mls/hr IVPB Q8H [facility] PRN Reason: Protocol Potassium Chloride (K-Dur 20 Meq Er Tab) 40 meq PO BRK [facility] Last Admin: 05/25/18 08:50 Dose: Not Given Sodium Chloride (Sodium Chloride Tab) 1 gm PO Q12 [facility] Last Admin: 05/24/18 10:41 Dose: 1 gm Sucralfate (Carafate Tab) 1 gm PO QID [facility] Last Admin: 05/27/18 21:34 Dose: 1 gm Tramadol HCl (Ultram) 50 mg PO Q6 PRN PRN Reason: Pain, moderate (4-7) Last Admin: 05/23/18 20:35 Dose: 50 mg - Labs Labs: 05/28/18 06:52 05/28/18 06:52 PT 17.3 SECONDS (9.7-12.2) H 05/08/18 18:29 INR 1.6 05/08/18 18:29 APTT 24 SECONDS (21-34) 05/08/18 18:29 - Constitutional Appears: No Acute Distress, Cachectic, Chronically Ill - Head Exam Head Exam: ATRAUMATIC, NORMAL INSPECTION - Eye Exam Eye Exam: EOMI, Normal appearance - Neck Exam Neck Exam: Normal Inspection. absent: Tenderness - Respiratory Exam Respiratory Exam: Rhonchi, NORMAL BREATHING PATTERN - GI/Abdominal Exam GI & Abdominal Exam: Soft. absent: Tenderness - Extremities Exam Extremities Exam: Normal Inspection. absent: Tenderness - Neurological Exam Neurological Exam: Altered - Skin Skin Exam: Dry, Warm Assessment and Plan (1) SIADH (syndrome of inappropriate ADH production) Status: Acute (2) Metastatic adenocarcinoma Status: Acute (3) Metastatic cancer Status: Acute (4) CAD (coronary artery disease) Status: Acute (5) Hyponatremia Status: Acute (6) Pancytopenia Status: Acute (7) SIADH (syndrome of inappropriate ADH production) Status: Acute - Assessment and Plan (Free Text) Plan: oral fluid restriction follow up Na levels If na decreases can repeat tovalptan
[2018-05-28] MEDS ORDERED: Cefepime 2 GM in Sodium Chloride 0.9% 100 ML IVPB SCH (10:00)
--- NOTE | 2018-05-28 14:17 | CP.PCM.PN ---
Subjective - Date & Time of Evaluation Date of Evaluation: 05/28/18 Time of Evaluation: 13:55 - Subjective Subjective: dictated Objective - Vital Signs/Intake and Output Vital Signs (last 24 hours): Temp Pulse Resp BP Pulse Ox 98.7 F 89 20 132/72 98 05/28/18 00:00 05/28/18 00:00 05/28/18 00:00 05/28/18 00:00 05/28/18 00:00 Intake and Output: 05/28/18 05/28/18 06:59 18:59 Intake Total 500 Balance 500 - Medications Medications: Current Medications Acetaminophen (Tylenol 325mg Tab) 650 mg PO Q6 PRN PRN Reason: Fever >100.4 F Last Admin: 05/18/18 00:56 Dose: 650 mg Acetaminophen (Tylenol 650 Mg Supp) 650 mg [place] Q6 PRN PRN Reason: Pain, moderate (4-7) Fentanyl (Duragesic) 1 patch TD Q72H [facility] Last Admin: 05/28/18 14:02 Dose: 1 patch Fluconazole (Diflucan) 100 mg PO DAILY [facility] PRN Reason: Protocol Moxifloxacin HCl (Avelox) 400 mg PO DAILY [facility] PRN Reason: Protocol Potassium Chloride (K-Dur 20 Meq Er Tab) 40 meq PO BRK [facility] Last Admin: 05/25/18 08:50 Dose: Not Given Sodium Chloride (Sodium Chloride Tab) 1 gm PO Q12 [facility] Last Admin: 05/24/18 10:41 Dose: 1 gm Sucralfate (Carafate Tab) 1 gm PO QID [facility] Last Admin: 05/28/18 14:02 Dose: 1 gm Tramadol HCl (Ultram) 50 mg PO Q6 PRN PRN Reason: Pain, moderate (4-7) Last Admin: 05/23/18 20:35 Dose: 50 mg - Labs Labs: 05/28/18 06:52 05/28/18 06:52 PT 17.3 SECONDS (9.7-12.2) H 05/08/18 18:29 INR 1.6 05/08/18 18:29 APTT 24 SECONDS (21-34) 05/08/18 18:29
[2018-05-28] MEDS ORDERED: Potassium Chloride 10 mEq ER Tab PO ONE (16:00)
[2018-05-28] MEDS: Nystatin 100,000 Units/ml Oral Susp 5 ml UD PO SCH ×2 (17:05→21:16)
--- NOTE | 2018-05-28 17:56 | CP.PCM.PN ---
Subjective - Date & Time of Evaluation Date of Evaluation: 05/28/18 Time of Evaluation: 07:00 - Subjective Subjective: clinically same Objective - Vital Signs/Intake and Output Vital Signs (last 24 hours): Temp Pulse Resp BP Pulse Ox 98.9 F 101 H 20 119/72 97 05/28/18 16:00 05/28/18 16:00 05/28/18 16:00 05/28/18 16:00 05/28/18 16:00 Intake and Output: 05/28/18 05/28/18 06:59 18:59 Intake Total 500 600 Balance 500 600 - Medications Medications: Current Medications Acetaminophen (Tylenol 325mg Tab) 650 mg PO Q6 PRN PRN Reason: Fever >100.4 F Last Admin: 05/18/18 00:56 Dose: 650 mg Acetaminophen (Tylenol 650 Mg Supp) 650 mg [place] Q6 PRN PRN Reason: Pain, moderate (4-7) Fentanyl (Duragesic) 1 patch TD Q72H [facility] Last Admin: 05/28/18 14:02 Dose: 1 patch Fluconazole (Diflucan) 100 mg PO DAILY [facility] PRN Reason: Protocol Moxifloxacin HCl (Avelox) 400 mg PO DAILY [facility] PRN Reason: Protocol Nystatin (Nystatin Oral Susp) 5 ml PO QID [facility] Last Admin: 05/28/18 17:05 Dose: 5 ml Potassium Chloride (K-Dur 20 Meq Er Tab) 40 meq PO BRK [facility] Last Admin: 05/25/18 08:50 Dose: Not Given Potassium Chloride (Klor-Con 10) 10 meq PO BRK [facility] Sodium Chloride (Sodium Chloride Tab) 1 gm PO Q12 [facility] Last Admin: 05/24/18 10:41 Dose: 1 gm Sucralfate (Carafate Tab) 1 gm PO QID [facility] Last Admin: 05/28/18 17:05 Dose: 1 gm Tramadol HCl (Ultram) 50 mg PO Q6 PRN PRN Reason: Pain, moderate (4-7) Last Admin: 05/23/18 20:35 Dose: 50 mg - Labs Labs: 05/28/18 06:52 05/28/18 06:52 PT 17.3 SECONDS (9.7-12.2) H 05/08/18 18:29 INR 1.6 05/08/18 18:29 APTT 24 SECONDS (21-34) 05/08/18 18:29 - Constitutional Appears: Well - Head Exam Head Exam: ATRAUMATIC, NORMAL INSPECTION, NORMOCEPHALIC - Eye Exam Eye Exam: EOMI, Normal appearance, PERRL Pupil Exam: NORMAL ACCOMODATION, PERRL - ENT Exam ENT Exam: Mucous Membranes Moist, Normal Exam - Neck Exam Neck Exam: Full ROM, Normal Inspection. absent: Lymphadenopathy - Respiratory Exam Respiratory Exam: Decreased Breath Sounds - Cardiovascular Exam Cardiovascular Exam: REGULAR RHYTHM, +S1, +S2 - GI/Abdominal Exam GI & Abdominal Exam: Soft, Diminished Bowel Sounds - Rectal Exam Rectal Exam: Deferred Assessment and Plan (1) Anemia Status: Acute (2) Electrolyte imbalance Status: Acute (3) Leukopenia Status: Acute (4) Metastatic adenocarcinoma Status: Acute (5) Metastatic cancer Status: Acute (6) Metastatic cancer to liver Status: Acute (7) Neutropenic fever Status: Acute (8) Pancytopenia Status: Acute (9) SIADH (syndrome of inappropriate ADH production) Status: Acute (10) Septic shock Status: Acute (11) Small cell lung cancer Status: Acute (12) Abdominal colic Status: Acute (13) Abdominal pain Status: Acute (14) CAD (coronary artery disease) Status: Acute (15) Diplopia Status: Acute (16) Disorder of vision Status: Acute (17) Dizziness Status: Acute (18) Hepatomegaly Status: Acute (19) Hiccups Status: Acute (20) Hypertension Status: Acute (21) Hyponatremia Status: Acute (22) Hyponatremia with decreased serum osmolality Status: Acute (23) Intractable hiccups Status: Acute (24) Leg cramps Status: Acute (25) Otitis media Status: Acute (26) Pancytopenia Status: Acute (27) S/P CABG (coronary artery bypass graft) Status: Acute (28) SIADH (syndrome of inappropriate ADH production) Status: Acute (29) Thrombocytopenia Status: Acute
[2018-05-28] MEDS: Potassium Chloride 10 mEq ER Tab PO SCH (18:33)
--- NOTE | 2018-05-28 21:52 | CP.PCM.PN ---
Subjective - Date & Time of Evaluation Date of Evaluation: 05/28/18 Time of Evaluation: 18:00 - Subjective Subjective: No complaints. Objective - Vital Signs/Intake and Output Vital Signs (last 24 hours): Temp Pulse Resp BP Pulse Ox 98.9 F 101 H 20 119/72 97 05/28/18 16:00 05/28/18 16:00 05/28/18 16:00 05/28/18 16:00 05/28/18 16:00 Intake and Output: 05/28/18 05/29/18 18:59 06:59 Intake Total 600 Balance 600 - Medications Medications: Current Medications Acetaminophen (Tylenol 325mg Tab) 650 mg PO Q6 PRN PRN Reason: Fever >100.4 F Last Admin: 05/18/18 00:56 Dose: 650 mg Acetaminophen (Tylenol 650 Mg Supp) 650 mg [place] Q6 PRN PRN Reason: Pain, moderate (4-7) Fentanyl (Duragesic) 1 patch TD Q72H [facility] Last Admin: 05/28/18 14:02 Dose: 1 patch Fluconazole (Diflucan) 100 mg PO DAILY [facility] PRN Reason: Protocol Moxifloxacin HCl (Avelox) 400 mg PO DAILY [facility] PRN Reason: Protocol Nystatin (Nystatin Oral Susp) 5 ml PO QID [facility] Last Admin: 05/28/18 21:16 Dose: 5 ml Potassium Chloride (K-Dur 20 Meq Er Tab) 40 meq PO BRK [facility] Last Admin: 05/25/18 08:50 Dose: Not Given Potassium Chloride (Klor-Con 10) 10 meq PO BRK [facility] Last Admin: 05/28/18 18:33 Dose: 10 meq Sodium Chloride (Sodium Chloride Tab) 1 gm PO Q12 [facility] Last Admin: 05/24/18 10:41 Dose: 1 gm Sucralfate (Carafate Tab) 1 gm PO QID [facility] Last Admin: 05/28/18 21:16 Dose: 1 gm Tramadol HCl (Ultram) 50 mg PO Q6 PRN PRN Reason: Pain, moderate (4-7) Last Admin: 05/23/18 20:35 Dose: 50 mg - Labs Labs: 05/28/18 06:52 05/28/18 06:52 PT 17.3 SECONDS (9.7-12.2) H 05/08/18 18:29 INR 1.6 05/08/18 18:29 APTT 24 SECONDS (21-34) 05/08/18 18:29 - Head Exam Head Exam: ATRAUMATIC - Eye Exam Eye Exam: Normal appearance - ENT Exam ENT Exam: Mucous Membranes Dry - Respiratory Exam Respiratory Exam: NORMAL BREATHING PATTERN - Cardiovascular Exam Cardiovascular Exam: +S1, +S2 - GI/Abdominal Exam GI & Abdominal Exam: Normal Bowel Sounds Assessment and Plan (1) Pancytopenia Assessment & Plan: secondary to chemotherapy growth factor/transfusion support PRN Status: Acute (2) Small cell lung cancer Assessment & Plan: stage IV outpatient treatment Status: Acute
--- NOTE | 2018-05-28 22:34 | PN ---
DATE: 05/28/2018 SUBJECTIVE: The patient was seen today. He did not complain much. He was feeling well and denied any complaints; however, when he opened his mouth, his tongue had thrush. He is stable otherwise. PHYSICAL EXAMINATION: VITAL SIGNS: T-max is 98.9, heart rate of 90, blood pressure 120/70, respirations are 20. GENERAL: He appeared in no acute respiratory distress. HEENT: Head is atraumatic, normocephalic. NECK: Supple. LUNGS: Clear. No crackles or rales present. HEART: S1, S2 are regular. Decreased breath sounds on bases. ABDOMEN: Soft, nontender. No guarding, no rigidity present. EXTREMITIES: Have no edema, clubbing or cyanosis. LABORATORY DATA: The patient's labs are noted and labs show white count is 4, hemoglobin 8, hematocrit 22.3, platelets are 12,000 and he remains pancytopenia; however, white count is 4 now and creatinine 0.4, sodium still remains 127. 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 Right now the white count is adequate and he is developing thrush at this time. We will change the medications to Avelox and Diflucan, so that he can take them orally and we will follow with the consultants and the patient has also hyponatremia for which he is being followed by. We will follow. Apple Rasmussen MD
--- NOTE | 2018-05-29 07:26 | CP.PCM.PN ---
<Cherie Yanes - Last Filed: 05/29/18 13:21> Subjective - Date & Time of Evaluation Date of Evaluation: 05/29/18 Time of Evaluation: 08:00 - Subjective Subjective: Medicine progress note for Dr. Mccartney's service Patient was seen and examined in the AM. No acute events overnight. Patient is awake, oriented to self and place. Patient states he is feeling tired but well. Objective - Vital Signs/Intake and Output Vital Signs (last 24 hours): Temp Pulse Resp BP Pulse Ox 99.1 F 88 20 137/84 98 05/29/18 00:00 05/29/18 00:00 05/29/18 00:00 05/29/18 00:00 05/29/18 00:00 Intake and Output: 05/29/18 05/29/18 06:59 18:59 Intake Total 600 Balance 600 - Medications Medications: Current Medications Acetaminophen (Tylenol 325mg Tab) 650 mg PO Q6 PRN PRN Reason: Fever >100.4 F Last Admin: 05/18/18 00:56 Dose: 650 mg Acetaminophen (Tylenol 650 Mg Supp) 650 mg [place] Q6 PRN PRN Reason: Pain, moderate (4-7) Fentanyl (Duragesic) 1 patch TD Q72H [facility] Last Admin: 05/28/18 14:02 Dose: 1 patch Fluconazole (Diflucan) 100 mg PO DAILY [facility] PRN Reason: Protocol Moxifloxacin HCl (Avelox) 400 mg PO DAILY [facility] PRN Reason: Protocol Nystatin (Nystatin Oral Susp) 5 ml PO QID [facility] Last Admin: 05/28/18 21:16 Dose: 5 ml Potassium Chloride (K-Dur 20 Meq Er Tab) 40 meq PO BRK [facility] Last Admin: 05/25/18 08:50 Dose: Not Given Potassium Chloride (Klor-Con 10) 10 meq PO BRK [facility] Last Admin: 05/28/18 18:33 Dose: 10 meq Sodium Chloride (Sodium Chloride Tab) 1 gm PO Q12 [facility] Last Admin: 05/24/18 10:41 Dose: 1 gm Sucralfate (Carafate Tab) 1 gm PO QID [facility] Last Admin: 05/28/18 21:16 Dose: 1 gm Tramadol HCl (Ultram) 50 mg PO Q6 PRN PRN Reason: Pain, moderate (4-7) Last Admin: 05/23/18 20:35 Dose: 50 mg - Labs Labs: 05/28/18 06:52 05/28/18 06:52 PT 17.3 SECONDS (9.7-12.2) H 05/08/18 18:29 INR 1.6 05/08/18 18:29 APTT 24 SECONDS (21-34) 05/08/18 18:29 - Constitutional Appears: No Acute Distress, Chronically Ill - Head Exam Head Exam: ATRAUMATIC, NORMAL INSPECTION - Eye Exam Eye Exam: EOMI, Normal appearance - ENT Exam ENT Exam: Mucous Membranes Moist - Respiratory Exam Respiratory Exam: NORMAL BREATHING PATTERN - Cardiovascular Exam Cardiovascular Exam: REGULAR RHYTHM, +S1, +S2 - GI/Abdominal Exam GI & Abdominal Exam: Soft, Normal Bowel Sounds. absent: Tenderness - Extremities Exam Extremities Exam: Normal Inspection - Neurological Exam Neurological Exam: Alert, Awake - Psychiatric Exam Psychiatric exam: Normal Affect - Skin Skin Exam: Normal Color Assessment and Plan - Assessment and Plan (Free Text) Assessment: Pancytopenia secondary to chemotherapy afebrile blood and urine culture negative Onc Consult: Dr. Bae --> help appreciated - Spoke with Dr. Bae: patient's platelets are 4 (05/18/18) --> ordered 2 bags of platelets for transfusion - Platelets (05/23/18): 7 --> 1 unit platelets ordered for transfusion - per Dr. Bae transfuse platelets if <10,000 Medications * Meropenem IV q8h - discontinued * Tobramycin 250mg q24h started 05/09/18 - discontinued * Vancomycin 1gm q12h started 05/13/18 - discontinued * Micafungin 100mg IV q24h started 05/09/18 * Acyclovir 400mg po bid started 05/18/18 * Cefepime 2gm q8h started 05/18/18 * Demeclocycline 300mg po (started 05/19/18) - discontinued per Dr. Escobedo * Holding Granix for now as WBC count improving per Dr. Bae Hyponatremia secondary to SIADH Change in mental status - patient is oriented to self previously (2 days prior) patient oriented to person and place Nephrology Consult: Dr. Escobedo --> help appreciated - spoke with Dr. Escobedo - gave a one time dose of Tolvaptan 15mg 05/24 will continue to monitor Na - Serum Osmolality 464; Urine Sodium 127 (high); Urine Osmolality 463 ( high) - 05/25/18: Pt received one dose of tolvaptan 15 mg yesterday. This morning, Na is 131 indicating correction of Na was quicker than 8 mEq/d. - Repeat urine osmolality is 217. urine Na is 17 - Uric acid: 1.6 (low) - Sodium 1g PO q12h -hold - 05/29/18: Na 126 --> per Dr. Escobedo given Tolvaptan 15mg po once - continue to monitor Continue fluid restriction 1L Electrolyte abnormality hypokalemia, hypomagnesemia, hypophosphatemia electrolytes repleted, continue to monitor continue daily potassium 40 meq daily with breakfast Small Cell Lung Cancer outpatient treatment with Oncologist, Dr. Bae Prophylactic measure carafate 1g PO QID chemical VTE prophylaxis contraindicated due to thrombocytopenia PT eval for weakness neutropenic precautions All medical management per Dr. Debo Mccartney <Ko Mccartney S - Last Filed: 05/29/18 16:35> Objective - Vital Signs/Intake and Output Vital Signs (last 24 hours): Temp Pulse Resp BP Pulse Ox 98.1 F 89 20 144/78 98 05/29/18 08:00 05/29/18 08:00 05/29/18 08:00 05/29/18 08:00 05/29/18 08:00 Intake and Output: 05/29/18 05/29/18 06:59 18:59 Intake Total 900 360 Output Total 450 Balance 450 360 - Medications Medications: Current Medications Acetaminophen (Tylenol 325mg Tab) 650 mg PO Q6 PRN PRN Reason: Fever >100.4 F Last Admin: 05/18/18 00:56 Dose: 650 mg Acetaminophen (Tylenol 650 Mg Supp) 650 mg [place] Q6 PRN PRN Reason: Pain, moderate (4-7) Fentanyl (Duragesic) 1 patch TD Q72H [facility] Last Admin: 05/28/18 14:02 Dose: 1 patch Fluconazole (Diflucan) 100 mg PO DAILY [facility] PRN Reason: Protocol Last Admin: 05/29/18 10:08 Dose: 100 mg Moxifloxacin HCl (Avelox) 400 mg PO DAILY [facility] PRN Reason: Protocol Last Admin: 05/29/18 09:56 Dose: 400 mg Nystatin (Nystatin Oral Susp) 5 ml PO QID [facility] Last Admin: 05/29/18 14:32 Dose: 5 ml Potassium Chloride (K-Dur 20 Meq Er Tab) 40 meq PO BRK [facility] Last Admin: 05/25/18 08:50 Dose: Not Given Potassium Chloride (Klor-Con 10) 10 meq PO BRK [facility] Last Admin: 05/29/18 08:03 Dose: 10 meq Sodium Chloride (Sodium Chloride Tab) 1 gm PO Q12 [facility] Last Admin: 05/24/18 10:41 Dose: 1 gm Sucralfate (Carafate Tab) 1 gm PO QID [facility] Last Admin: 05/29/18 14:32 Dose: 1 gm Tramadol HCl (Ultram) 50 mg PO Q6 PRN PRN Reason: Pain, moderate (4-7) Last Admin: 05/23/18 20:35 Dose: 50 mg - Labs Labs: 05/29/18 07:17 05/29/18 07:17 PT 17.3 SECONDS (9.7-12.2) H 05/08/18 18:29 INR 1.6 05/08/18 18:29 APTT 24 SECONDS (21-34) 05/08/18 18:29 Assessment and Plan (1) Anemia Status: Acute (2) Electrolyte imbalance Status: Acute (3) Leukopenia Status: Acute (4) Metastatic adenocarcinoma Status: Acute (5) Metastatic cancer Status: Acute (6) Metastatic cancer to liver Status: Acute (7) Neutropenic fever Status: Acute (8) Pancytopenia Status: Acute (9) SIADH (syndrome of inappropriate ADH production) Status: Acute (10) Septic shock Status: Acute (11) Small cell lung cancer Status: Acute (12) Abdominal colic Status: Acute (13) Abdominal pain Status: Acute (14) CAD (coronary artery disease) Status: Acute (15) Diplopia Status: Acute (16) Disorder of vision Status: Acute (17) Dizziness Status: Acute (18) Hepatomegaly Status: Acute (19) Hiccups Status: Acute (20) Hypertension Status: Acute (21) Hyponatremia Status: Acute (22) Hyponatremia with decreased serum osmolality Status: Acute (23) Intractable hiccups Status: Acute (24) Leg cramps Status: Acute (25) Otitis media Status: Acute (26) Pancytopenia Status: Acute (27) S/P CABG (coronary artery bypass graft) Status: Acute (28) SIADH (syndrome of inappropriate ADH production) Status: Acute (29) Thrombocytopenia Status: Acute Attending/Attestation - Attestation I have personally seen and examined this patient.: Yes I have fully participated in the care of the patient.: Yes I have reviewed all pertinent clinical information, including history, physical exam and plan: Yes Notes (Text): 05/29/18 16:35 Case seen and discussed with the staff Low platelets Patient is unable to walk much patient wants to go to [facility] discussed with the daughter patient is cleared
[2018-05-29 07:49] LABS: BASO % 0.7 % (0.0-2.0); EOS % 0.3 % (0.0-4.0); HEMOGLOBIN 7.7 g/dL (12.0-18.0); LYMPH # 0.6 K/uL (1.0-4.3); LYMPH % 12.6 % (20.0-40.0); MEAN CELL VOLUME 82.1 fL (80.0-94.0); MEAN CORPUSCULAR HEMOGLOBIN 29.2 pg (27.0-31.0); MEAN CORPUSCULAR HGB CONC 35.6 g/dL (33.0-37.0); MEAN PLATELET VOLUME 8.7 fL (7.2-11.7); MONO # 0.4 K/uL (0.0-0.8); MONO % 7.7 % (0.0-10.0); NEUT # 3.6 K/uL (1.8-7.0); NEUT % 78.7 % (50.0-75.0); NRBC % 0.2 % (0.0-2.0); RBC 2.65 Mil/uL (4.40-5.90); RED CELL DISTRIBUTION WIDTH 14.6 % (11.5-14.5); WHITE BLOOD COUNT 4.6 K/uL (4.8-10.8)
[2018-05-29 07:54] LABS: ALBUMIN 3.6 g/dL (3.5-5.0); ALT/SGPT 32 U/L (21-72); AST/SGOT 76 U/L (17-59); BLOOD UREA NITROGEN 9 mg/dL (9-20); CALCIUM 9.6 mg/dl (8.6-10.4); GFR NON-AFRICAN AMERICAN > 60
[2018-05-29] MEDS: Potassium Chloride 10 mEq ER Tab PO SCH (08:03)
--- NOTE | 2018-05-29 09:32 | CP.PCM.PN ---
Subjective - Date & Time of Evaluation Date of Evaluation: 05/29/18 Time of Evaluation: 09:30 - Subjective Subjective: Alert remains pancytopenic no new complaints Na 126- decreasing slowly Objective - Vital Signs/Intake and Output Vital Signs (last 24 hours): Temp Pulse Resp BP Pulse Ox 98.1 F 89 20 144/78 98 05/29/18 08:00 05/29/18 08:00 05/29/18 08:00 05/29/18 08:00 05/29/18 08:00 Intake and Output: 05/29/18 05/29/18 06:59 18:59 Intake Total 900 Output Total 450 Balance 450 - Medications Medications: Current Medications Acetaminophen (Tylenol 325mg Tab) 650 mg PO Q6 PRN PRN Reason: Fever >100.4 F Last Admin: 05/18/18 00:56 Dose: 650 mg Acetaminophen (Tylenol 650 Mg Supp) 650 mg [place] Q6 PRN PRN Reason: Pain, moderate (4-7) Fentanyl (Duragesic) 1 patch TD Q72H [facility] Last Admin: 05/28/18 14:02 Dose: 1 patch Fluconazole (Diflucan) 100 mg PO DAILY [facility] PRN Reason: Protocol Moxifloxacin HCl (Avelox) 400 mg PO DAILY [facility] PRN Reason: Protocol Nystatin (Nystatin Oral Susp) 5 ml PO QID [facility] Last Admin: 05/28/18 21:16 Dose: 5 ml Potassium Chloride (K-Dur 20 Meq Er Tab) 40 meq PO BRK [facility] Last Admin: 05/25/18 08:50 Dose: Not Given Potassium Chloride (Klor-Con 10) 10 meq PO BRK [facility] Last Admin: 05/29/18 08:03 Dose: 10 meq Sodium Chloride (Sodium Chloride Tab) 1 gm PO Q12 [facility] Last Admin: 05/24/18 10:41 Dose: 1 gm Sucralfate (Carafate Tab) 1 gm PO QID [facility] Last Admin: 05/28/18 21:16 Dose: 1 gm Tramadol HCl (Ultram) 50 mg PO Q6 PRN PRN Reason: Pain, moderate (4-7) Last Admin: 05/23/18 20:35 Dose: 50 mg - Labs Labs: 05/29/18 07:17 05/29/18 07:17 PT 17.3 SECONDS (9.7-12.2) H 05/08/18 18:29 INR 1.6 05/08/18 18:29 APTT 24 SECONDS (21-34) 05/08/18 18:29 - Constitutional Appears: Cachectic, Chronically Ill - Head Exam Head Exam: ATRAUMATIC, NORMAL INSPECTION - Eye Exam Eye Exam: EOMI, Normal appearance - Neck Exam Neck Exam: Normal Inspection. absent: Tenderness - Respiratory Exam Respiratory Exam: Rhonchi, NORMAL BREATHING PATTERN - Cardiovascular Exam Cardiovascular Exam: REGULAR RHYTHM, +S1 - GI/Abdominal Exam GI & Abdominal Exam: Soft. absent: Tenderness - Extremities Exam Extremities Exam: Normal Inspection. absent: Tenderness - Neurological Exam Neurological Exam: Awake, CN II-XII Intact - Skin Skin Exam: Dry, Warm Assessment and Plan (1) SIADH (syndrome of inappropriate ADH production) Status: Acute (2) Metastatic adenocarcinoma Status: Acute (3) Metastatic cancer Status: Acute (4) CAD (coronary artery disease) Status: Acute (5) Hyponatremia Status: Acute (6) Pancytopenia Status: Acute (7) SIADH (syndrome of inappropriate ADH production) Status: Acute - Assessment and Plan (Free Text) Plan: repeat tovalptan Follow up na levels
[2018-05-29] MEDS ORDERED: Tolvaptan 15 MG TAB PO ONE (09:45)
[2018-05-29] MEDS: Nystatin 100,000 Units/ml Oral Susp 5 ml UD PO SCH ×4 (09:56→22:06)
--- NOTE | 2018-05-29 11:44 | CP.PCM.PN ---
Subjective - Date & Time of Evaluation Date of Evaluation: 05/29/18 Time of Evaluation: 07:00 - Subjective Subjective: clinically same Objective - Vital Signs/Intake and Output Vital Signs (last 24 hours): Temp Pulse Resp BP Pulse Ox 98.1 F 89 20 144/78 98 05/29/18 08:00 05/29/18 08:00 05/29/18 08:00 05/29/18 08:00 05/29/18 08:00 Intake and Output: 05/29/18 05/29/18 06:59 18:59 Intake Total 900 Output Total 450 Balance 450 - Medications Medications: Current Medications Acetaminophen (Tylenol 325mg Tab) 650 mg PO Q6 PRN PRN Reason: Fever >100.4 F Last Admin: 05/18/18 00:56 Dose: 650 mg Acetaminophen (Tylenol 650 Mg Supp) 650 mg [place] Q6 PRN PRN Reason: Pain, moderate (4-7) Fentanyl (Duragesic) 1 patch TD Q72H [facility] Last Admin: 05/28/18 14:02 Dose: 1 patch Fluconazole (Diflucan) 100 mg PO DAILY [facility] PRN Reason: Protocol Last Admin: 05/29/18 10:08 Dose: 100 mg Moxifloxacin HCl (Avelox) 400 mg PO DAILY [facility] PRN Reason: Protocol Last Admin: 05/29/18 09:56 Dose: 400 mg Nystatin (Nystatin Oral Susp) 5 ml PO QID [facility] Last Admin: 05/29/18 09:56 Dose: 5 ml Potassium Chloride (K-Dur 20 Meq Er Tab) 40 meq PO BRK [facility] Last Admin: 05/25/18 08:50 Dose: Not Given Potassium Chloride (Klor-Con 10) 10 meq PO BRK [facility] Last Admin: 05/29/18 08:03 Dose: 10 meq Sodium Chloride (Sodium Chloride Tab) 1 gm PO Q12 [facility] Last Admin: 05/24/18 10:41 Dose: 1 gm Sucralfate (Carafate Tab) 1 gm PO QID [facility] Last Admin: 05/29/18 09:56 Dose: 1 gm Tramadol HCl (Ultram) 50 mg PO Q6 PRN PRN Reason: Pain, moderate (4-7) Last Admin: 05/23/18 20:35 Dose: 50 mg - Labs Labs: 05/29/18 07:17 05/29/18 07:17 PT 17.3 SECONDS (9.7-12.2) H 05/08/18 18:29 INR 1.6 05/08/18 18:29 APTT 24 SECONDS (21-34) 05/08/18 18:29 - Constitutional Appears: Well - Head Exam Head Exam: ATRAUMATIC, NORMAL INSPECTION, NORMOCEPHALIC - Eye Exam Eye Exam: EOMI, Normal appearance, PERRL Pupil Exam: NORMAL ACCOMODATION, PERRL - ENT Exam ENT Exam: Mucous Membranes Moist, Normal Exam - Neck Exam Neck Exam: Full ROM, Normal Inspection. absent: Lymphadenopathy - Respiratory Exam Respiratory Exam: Decreased Breath Sounds - Cardiovascular Exam Cardiovascular Exam: REGULAR RHYTHM, +S1, +S2 - GI/Abdominal Exam GI & Abdominal Exam: Soft, Diminished Bowel Sounds - Rectal Exam Rectal Exam: Deferred Assessment and Plan (1) Anemia Status: Acute (2) Electrolyte imbalance Status: Acute (3) Leukopenia Status: Acute (4) Metastatic adenocarcinoma Status: Acute (5) Metastatic cancer Status: Acute (6) Metastatic cancer to liver Status: Acute (7) Neutropenic fever Status: Acute (8) Pancytopenia Status: Acute (9) SIADH (syndrome of inappropriate ADH production) Status: Acute (10) Septic shock Status: Acute (11) Small cell lung cancer Status: Acute (12) Abdominal colic Status: Acute (13) Abdominal pain Status: Acute (14) CAD (coronary artery disease) Status: Acute (15) Diplopia Status: Acute (16) Disorder of vision Status: Acute (17) Dizziness Status: Acute (18) Hepatomegaly Status: Acute (19) Hiccups Status: Acute (20) Hypertension Status: Acute (21) Hyponatremia Status: Acute (22) Hyponatremia with decreased serum osmolality Status: Acute (23) Intractable hiccups Status: Acute (24) Leg cramps Status: Acute (25) Otitis media Status: Acute (26) Pancytopenia Status: Acute (27) S/P CABG (coronary artery bypass graft) Status: Acute (28) SIADH (syndrome of inappropriate ADH production) Status: Acute (29) Thrombocytopenia Status: Acute - Assessment and Plan (Free Text) Plan: Spoke to the daughter to 3 times also spoke to the person who is in the hospital but she is not the doctor as per the patient patient's claims to go to a blood thinner [facility] Spoke to gama Ortiz doctor who cleared the patient to go to work him at all the patient feels very weak so will give a note also spoke to the doctor again and patient can go to [facility] Pancytopenia secondary to chemotherapy afebrile blood and urine culture negative Onc Consult: Dr. Bae --> help appreciated - Spoke with Dr. Bae: patient's platelets are 4 (05/18/18) --> ordered 2 bags of platelets for transfusion - Platelets (05/23/18): 7 --> 1 unit platelets ordered for transfusion - per Dr. Bae transfuse platelets if <10,000 Medications Meropenem IV q8h - discontinued Tobramycin 250mg q24h started 05/09/18 - discontinued Vancomycin 1gm q12h started 05/13/18 - discontinued Micafungin 100mg IV q24h started 05/09/18 Acyclovir 400mg po bid started 05/18/18 Cefepime 2gm q8h started 05/18/18 Demeclocycline 300mg po (started 05/19/18) - discontinued per Dr. Escobedo Holding Granix for now as WBC count improving per Dr. Bae Hyponatremia secondary to SIADH Change in mental status - patient is oriented to self previously (2 days prior) patient oriented to person and place Nephrology Consult: Dr. Escobedo --> help appreciated - spoke with Dr. Escobedo - gave a one time dose of Tolvaptan 15mg 05/24 will continue to monitor Na - Serum Osmolality 464; Urine Sodium 127 (high); Urine Osmolality 463 ( high) - 05/25/18: Pt received one dose of tolvaptan 15 mg yesterday. This morning, Na is 131 indicating correction of Na was quicker than 8 mEq/d. - Repeat urine osmolality is 217. urine Na is 17 - Uric acid: 1.6 (low) - Sodium 1g PO q12h -hold - 05/29/18: Na 126 --> per Dr. Escobedo given Tolvaptan 15mg po once - continue to monitor Continue fluid restriction 1L Electrolyte abnormality hypokalemia, hypomagnesemia, hypophosphatemia electrolytes repleted, continue to monitor continue daily potassium 40 meq daily with breakfast Small Cell Lung Cancer outpatient treatment with Oncologist, Dr. [place] Prophylactic measure carafate 1g PO QID chemical VTE prophylaxis contraindicated due to thrombocytopenia PT eval for weakness neutropenic precautions
--- NOTE | 2018-05-29 12:46 | CP.PCM.PN ---
Subjective - Date & Time of Evaluation Date of Evaluation: 05/29/18 Time of Evaluation: 12:00 - Subjective Subjective: No complaints. for 2U PRBC today. Objective - Vital Signs/Intake and Output Vital Signs (last 24 hours): Temp Pulse Resp BP Pulse Ox 98.1 F 89 20 144/78 98 05/29/18 08:00 05/29/18 08:00 05/29/18 08:00 05/29/18 08:00 05/29/18 08:00 Intake and Output: 05/29/18 05/29/18 06:59 18:59 Intake Total 900 Output Total 450 Balance 450 - Medications Medications: Current Medications Acetaminophen (Tylenol 325mg Tab) 650 mg PO Q6 PRN PRN Reason: Fever >100.4 F Last Admin: 05/18/18 00:56 Dose: 650 mg Acetaminophen (Tylenol 650 Mg Supp) 650 mg [place] Q6 PRN PRN Reason: Pain, moderate (4-7) Fentanyl (Duragesic) 1 patch TD Q72H [facility] Last Admin: 05/28/18 14:02 Dose: 1 patch Fluconazole (Diflucan) 100 mg PO DAILY [facility] PRN Reason: Protocol Last Admin: 05/29/18 10:08 Dose: 100 mg Moxifloxacin HCl (Avelox) 400 mg PO DAILY [facility] PRN Reason: Protocol Last Admin: 05/29/18 09:56 Dose: 400 mg Nystatin (Nystatin Oral Susp) 5 ml PO QID [facility] Last Admin: 05/29/18 09:56 Dose: 5 ml Potassium Chloride (K-Dur 20 Meq Er Tab) 40 meq PO BRK [facility] Last Admin: 05/25/18 08:50 Dose: Not Given Potassium Chloride (Klor-Con 10) 10 meq PO BRK [facility] Last Admin: 05/29/18 08:03 Dose: 10 meq Sodium Chloride (Sodium Chloride Tab) 1 gm PO Q12 [facility] Last Admin: 05/24/18 10:41 Dose: 1 gm Sucralfate (Carafate Tab) 1 gm PO QID [facility] Last Admin: 05/29/18 09:56 Dose: 1 gm Tramadol HCl (Ultram) 50 mg PO Q6 PRN PRN Reason: Pain, moderate (4-7) Last Admin: 05/23/18 20:35 Dose: 50 mg - Labs Labs: 05/29/18 07:17 05/29/18 07:17 PT 17.3 SECONDS (9.7-12.2) H 05/08/18 18:29 INR 1.6 05/08/18 18:29 APTT 24 SECONDS (21-34) 05/08/18 18:29 - Head Exam Head Exam: ATRAUMATIC - Eye Exam Eye Exam: Normal appearance - ENT Exam ENT Exam: Mucous Membranes Dry - Respiratory Exam Respiratory Exam: NORMAL BREATHING PATTERN - Cardiovascular Exam Cardiovascular Exam: +S1, +S2 - GI/Abdominal Exam GI & Abdominal Exam: Normal Bowel Sounds Assessment and Plan (1) Pancytopenia Assessment & Plan: secondary to chemotherapy growth factor/transfusion support PRN Status: Acute (2) Small cell lung cancer Assessment & Plan: stage IV outpatient treatment Status: Acute
--- NOTE | 2018-05-29 20:30 | CP.PCM.PN ---
Subjective - Date & Time of Evaluation Date of Evaluation: 05/29/18 Time of Evaluation: 15:40 - Subjective Subjective: dictated Objective - Vital Signs/Intake and Output Vital Signs (last 24 hours): Temp Pulse Resp BP Pulse Ox 98.5 F 110 H 20 126/76 98 05/29/18 19:45 05/29/18 19:45 05/29/18 19:45 05/29/18 19:45 05/29/18 16:00 Intake and Output: 05/29/18 05/30/18 18:59 06:59 Intake Total 360 325 Balance 360 325 - Medications Medications: Current Medications Acetaminophen (Tylenol 325mg Tab) 650 mg PO Q6 PRN PRN Reason: Fever >100.4 F Last Admin: 05/18/18 00:56 Dose: 650 mg Acetaminophen (Tylenol 650 Mg Supp) 650 mg [place] Q6 PRN PRN Reason: Pain, moderate (4-7) Fentanyl (Duragesic) 1 patch TD Q72H [facility] Last Admin: 05/28/18 14:02 Dose: 1 patch Fluconazole (Diflucan) 100 mg PO DAILY [facility] PRN Reason: Protocol Last Admin: 05/29/18 10:08 Dose: 100 mg Moxifloxacin HCl (Avelox) 400 mg PO DAILY [facility] PRN Reason: Protocol Last Admin: 05/29/18 09:56 Dose: 400 mg Nystatin (Nystatin Oral Susp) 5 ml PO QID [facility] Last Admin: 05/29/18 17:35 Dose: 5 ml Potassium Chloride (K-Dur 20 Meq Er Tab) 40 meq PO BRK [facility] Last Admin: 05/25/18 08:50 Dose: Not Given Potassium Chloride (Klor-Con 10) 10 meq PO BRK [facility] Last Admin: 05/29/18 08:03 Dose: 10 meq Sodium Chloride (Sodium Chloride Tab) 1 gm PO Q12 [facility] Last Admin: 05/24/18 10:41 Dose: 1 gm Sucralfate (Carafate Tab) 1 gm PO QID [facility] Last Admin: 05/29/18 17:35 Dose: 1 gm Tramadol HCl (Ultram) 50 mg PO Q6 PRN PRN Reason: Pain, moderate (4-7) Last Admin: 05/23/18 20:35 Dose: 50 mg - Labs Labs: 05/29/18 07:17 05/29/18 07:17 PT 17.3 SECONDS (9.7-12.2) H 05/08/18 18:29 INR 1.6 05/08/18 18:29 APTT 24 SECONDS (21-34) 05/08/18 18:29
--- NOTE | 2018-05-30 00:44 | PN ---
DATE: 05/29/2018 INFECTIOUS DISEASE FOLLOWUP SUBJECTIVE: The patient remains awake and alert. He was for 2 units of packed RBC today, and he was not eating much, I guess, because of the thrush, he was not eating probably. OBJECTIVE: VITAL SIGNS: T-max was 98.5, heart rate of 110, blood pressure 122/74, respirations are 20. HEENT: Head is atraumatic, normocephalic. NECK: Supple. LUNGS: There are decreased breath sounds bilaterally, otherwise clear. No crackles or rales present. No rhonchi anteriorly. HEART: S1, S2 regular. Tachycardia present. ABDOMEN: Soft, nontender. No guarding, no rigidity present. EXTREMITIES: Have no edema. White count is 4.6, hemoglobin 7.7, hematocrit is 21.8, and platelets were 17,000. Dr. Bae was going to order some blood transfusion. I had removed him from IV antibiotics yesterday, and he is on fluconazole and Avelox at this time; and he also is getting treatment for his sodium being low, and Dr. Escobedo has ordered tolvaptan. Sodium is 126 today, it was 127 yesterday. 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 The patient came in with pancytopenia. He was neutropenic post chemo, and remained neutropenic for a very long time and status post radiation. Apple Rasmussen MD
[2018-05-30 07:47] LABS: BASO % 0.6 % (0.0-2.0); EOS % 0.2 % (0.0-4.0); LYMPH # 0.7 K/uL (1.0-4.3); LYMPH % 13.8 % (20.0-40.0); MEAN CELL VOLUME 84.6 fL (80.0-94.0); MEAN CORPUSCULAR HEMOGLOBIN 30.2 pg (27.0-31.0); MEAN CORPUSCULAR HGB CONC 35.7 g/dL (33.0-37.0); MONO # 0.5 K/uL (0.0-0.8); MONO % 10.4 % (0.0-10.0); NEUT # 3.8 K/uL (1.8-7.0); NRBC % 0.6 % (0.0-2.0); RBC 3.86 Mil/uL (4.40-5.90); RED CELL DISTRIBUTION WIDTH 15.9 % (11.5-14.5); WHITE BLOOD COUNT 5.1 K/uL (4.8-10.8)
--- NOTE | 2018-05-30 07:48 | CP.PCM.PN ---
Subjective - Date & Time of Evaluation Date of Evaluation: 05/30/18 Time of Evaluation: 09:00 - Subjective Subjective: PGY 3 medicine progress note for Dr. Debo Mccartney: Patient was seen and examined in the AM. No acute events overnight. Patient is awake, oriented to self and place. Patient states he is feeling tired but well. No new complaints today. Patient's family would like to take him home and bring him to [facility]. Objective - Vital Signs/Intake and Output Vital Signs (last 24 hours): Temp Pulse Resp BP Pulse Ox 98.9 F 90 20 156/82 H 95 05/30/18 01:45 05/30/18 01:45 05/30/18 01:45 05/30/18 01:45 05/29/18 23:45 Intake and Output: 05/30/18 05/30/18 06:59 18:59 Intake Total 1750 Balance 1750 - Medications Medications: Current Medications Acetaminophen (Tylenol 325mg Tab) 650 mg PO Q6 PRN PRN Reason: Fever >100.4 F Last Admin: 05/18/18 00:56 Dose: 650 mg Acetaminophen (Tylenol 650 Mg Supp) 650 mg [place] Q6 PRN PRN Reason: Pain, moderate (4-7) Fentanyl (Duragesic) 1 patch TD Q72H [facility] Last Admin: 05/28/18 14:02 Dose: 1 patch Fluconazole (Diflucan) 100 mg PO DAILY [facility] PRN Reason: Protocol Last Admin: 05/29/18 10:08 Dose: 100 mg Moxifloxacin HCl (Avelox) 400 mg PO DAILY [facility] PRN Reason: Protocol Last Admin: 05/29/18 09:56 Dose: 400 mg Nystatin (Nystatin Oral Susp) 5 ml PO QID [facility] Last Admin: 05/29/18 22:06 Dose: 5 ml Potassium Chloride (K-Dur 20 Meq Er Tab) 40 meq PO BRK [facility] Last Admin: 05/25/18 08:50 Dose: Not Given Potassium Chloride (Klor-Con 10) 10 meq PO BRK [facility] Last Admin: 05/29/18 08:03 Dose: 10 meq Sodium Chloride (Sodium Chloride Tab) 1 gm PO Q12 [facility] Last Admin: 05/24/18 10:41 Dose: 1 gm Sucralfate (Carafate Tab) 1 gm PO QID [facility] Last Admin: 05/29/18 22:06 Dose: 1 gm Tramadol HCl (Ultram) 50 mg PO Q6 PRN PRN Reason: Pain, moderate (4-7) Last Admin: 05/23/18 20:35 Dose: 50 mg - Labs Labs: 05/29/18 07:17 05/29/18 07:17 PT 17.3 SECONDS (9.7-12.2) H 05/08/18 18:29 INR 1.6 05/08/18 18:29 APTT 24 SECONDS (21-34) 05/08/18 18:29 - Constitutional Appears: Non-toxic, No Acute Distress, Chronically Ill - Head Exam Head Exam: ATRAUMATIC, NORMAL INSPECTION - Eye Exam Eye Exam: EOMI, PERRL Pupil Exam: NORMAL ACCOMODATION - ENT Exam ENT Exam: Mucous Membranes Moist - Respiratory Exam Respiratory Exam: Clear to Ausculation Bilateral, NORMAL BREATHING PATTERN. absent: Accessory Muscle Use, Respiratory Distress - GI/Abdominal Exam GI & Abdominal Exam: Soft, Normal Bowel Sounds. absent: Distended, Firm, Guarding, Tenderness - Extremities Exam Extremities Exam: Normal Inspection - Back Exam Back Exam: NORMAL INSPECTION - Neurological Exam Neurological Exam: Alert, Awake, CN II-XII Intact, Oriented x3 - Psychiatric Exam Psychiatric exam: Normal Affect, Normal Mood - Skin Skin Exam: Normal Color Assessment and Plan - Assessment and Plan (Free Text) Assessment: Pancytopenia secondary to chemotherapy afebrile was given 2 U PRBC 05/29 - Hbg 11 and Pt 24 blood and urine culture negative Onc Consult: Dr. Bae --> help appreciated - Spoke with Dr. Bae: patient's platelets are 4 (05/18/18) --> ordered 2 bags of platelets for transfusion - Platelets (05/23/18): 7 --> 1 unit platelets ordered for transfusion - per Dr. Bae transfuse platelets if <10,000 Medications * Meropenem IV q8h - discontinued * Tobramycin 250mg q24h started 05/09/18 - discontinued * Vancomycin 1gm q12h started 05/13/18 - discontinued * Micafungin 100mg IV q24h started 05/09/18 * Acyclovir 400mg po bid started 05/18/18 * Cefepime 2gm q8h started 05/18/18 * Demeclocycline 300mg po (started 05/19/18) - discontinued per Dr. Escobedo * Holding Granix for now as WBC count improving per Dr. Bae Hyponatremia secondary to SIADH Na 136 today, improved Change in mental status - patient is oriented to self previously (2 days prior) patient oriented to person and place Nephrology Consult: Dr. Escobedo --> help appreciated - spoke with Dr. Escobedo - gave a one time dose of Tolvaptan 15mg 05/24 will continue to monitor Na - Serum Osmolality 464; Urine Sodium 127 (high); Urine Osmolality 463 ( high) - 05/29 and 05/25/18: Pt received one dose of tolvaptan - Uric acid: 1.6 (low) - Sodium 1g PO q12h will be given on DC Continue fluid restriction 1L Electrolyte abnormality hypokalemia, hypomagnesemia, hypophosphatemia electrolytes repleted, continue to monitor continue daily potassium 40 meq daily with breakfast Small Cell Lung Cancer outpatient treatment with Oncologist, Dr. Bae Prophylactic measure carafate 1g PO QID chemical VTE prophylaxis contraindicated due to thrombocytopenia PT eval for weakness neutropenic precautions Patient is stable for discharge home per Dr. Debo Mccartney. He is to follow up with Dr. Debo Mccartney within one week of discharge for post hospital care. If the patient will be going to [facility] he should see a physician there to be monitored and have his medication refilled. Patient is to resume his home medications. He was given prescriptions for pain medications. In addition he should also take Levaquin and Diflucan daily for an additional 7 days. These medications were sent to the patient's pharmacy ([facility]). Patient is to also follow us with Dr. Escobedo (nephrology) and Dr. Gómez Bae (heme/onc) for outpatient care within one week of discharge. He is to return to the located within [facility] room if symptoms return. All medical management per Dr. Debo Mccartney
[2018-05-30 07:59] LABS: HEMOGLOBIN 11.6 g/dL (12.0-18.0)
[2018-05-30 08:05] LABS: ALBUMIN 3.9 g/dL (3.5-5.0); ALT/SGPT 35 U/L (21-72); AST/SGOT 77 U/L (17-59); BLOOD UREA NITROGEN 10 mg/dL (9-20); CALCIUM 10.1 mg/dl (8.6-10.4); GFR NON-AFRICAN AMERICAN > 60
[2018-05-30] MEDS: Potassium Chloride 10 mEq ER Tab PO SCH (08:05)
[2018-05-30 08:54] VITALS: BP 142/82; PULSE 95; TEMP 98.7; O2SAT 99
[2018-05-30] MEDS: Nystatin 100,000 Units/ml Oral Susp 5 ml UD PO SCH ×2 (10:34→14:32)
--- NOTE | 2018-05-30 12:52 | CP.PCM.PN ---
Subjective - Date & Time of Evaluation Date of Evaluation: 05/30/18 Time of Evaluation: 07:00 - Subjective Subjective: clinically same Objective - Vital Signs/Intake and Output Vital Signs (last 24 hours): Temp Pulse Resp BP Pulse Ox 98.7 F 95 H 20 142/82 99 05/30/18 07:00 05/30/18 07:00 05/30/18 07:00 05/30/18 07:00 05/30/18 07:00 Intake and Output: 05/30/18 05/30/18 06:59 18:59 Intake Total 1750 Balance 1750 - Medications Medications: Current Medications Acetaminophen (Tylenol 325mg Tab) 650 mg PO Q6 PRN PRN Reason: Fever >100.4 F Last Admin: 05/18/18 00:56 Dose: 650 mg Acetaminophen (Tylenol 650 Mg Supp) 650 mg [place] Q6 PRN PRN Reason: Pain, moderate (4-7) Fentanyl (Duragesic) 1 patch TD Q72H REPLACED BY [facility] Last Admin: 05/28/18 14:02 Dose: 1 patch Fluconazole (Diflucan) 100 mg PO DAILY [facility] PRN Reason: Protocol Last Admin: 05/30/18 10:34 Dose: 100 mg Moxifloxacin HCl (Avelox) 400 mg PO DAILY [facility]PL[facility] BY [facility] PRN Reason: Protocol Last Admin: 05/30/18 10:34 Dose: 400 mg Nystatin (Nystatin Oral Susp) 5 ml PO QID REPLACED BY [facility] Last Admin: 05/30/18 10:34 Dose: 5 ml Potassium Chloride (K-Dur 20 Meq Er Tab) 40 meq PO BRK REPLACED BY [facility] Last Admin: 05/25/18 08:50 Dose: Not Given Potassium Chloride (Klor-Con 10) 10 meq PO BRK REPLACED BY [facility] Last Admin: 05/30/18 08:05 Dose: 10 meq Sodium Chloride (Sodium Chloride Tab) 1 gm PO Q12 REPLACED BY [facility] Last Admin: 05/24/18 10:41 Dose: 1 gm Sucralfate (Carafate Tab) 1 gm PO QID REPLACED BY [facility] Last Admin: 05/30/18 10:34 Dose: 1 gm Tramadol HCl (Ultram) 50 mg PO Q6 PRN PRN Reason: Pain, moderate (4-7) Last Admin: 05/23/18 20:35 Dose: 50 mg - Labs Labs: 05/30/18 07:23 05/30/18 07:23 PT 17.3 SECONDS (9.7-12.2) H 05/08/18 18:29 INR 1.6 05/08/18 18:29 APTT 24 SECONDS (21-34) 05/08/18 18:29 Assessment and Plan (1) Anemia Status: Acute (2) Electrolyte imbalance Status: Acute (3) Leukopenia Status: Acute (4) Metastatic adenocarcinoma Status: Acute (5) Metastatic cancer Status: Acute (6) Metastatic cancer to liver Status: Acute (7) Neutropenic fever Status: Acute (8) Pancytopenia Status: Acute (9) SIADH (syndrome of inappropriate ADH production) Status: Acute (10) Septic shock Status: Acute (11) Small cell lung cancer Status: Acute (12) Abdominal colic Status: Acute (13) Abdominal pain Status: Acute (14) CAD (coronary artery disease) Status: Acute (15) Diplopia Status: Acute (16) Disorder of vision Status: Acute (17) Dizziness Status: Acute (18) Hepatomegaly Status: Acute (19) Hiccups Status: Acute (20) Hypertension Status: Acute (21) Hyponatremia Status: Acute (22) Hyponatremia with decreased serum osmolality Status: Acute (23) Intractable hiccups Status: Acute (24) Leg cramps Status: Acute (25) Otitis media Status: Acute (26) Pancytopenia Status: Acute (27) S/P CABG (coronary artery bypass graft) Status: Acute (28) SIADH (syndrome of inappropriate ADH production) Status: Acute (29) Thrombocytopenia Status: Acute
--- NOTE | 2018-05-31 23:10 | CP.PCM.PN ---
Subjective - Date & Time of Evaluation Date of Evaluation: 05/30/18 Time of Evaluation: 12:00 - Subjective Subjective: Feeling better Objective - Vital Signs/Intake and Output Vital Signs (last 24 hours): Temp Pulse Resp BP Pulse Ox 98.7 F 95 H 20 142/82 99 05/30/18 07:00 05/30/18 07:00 05/30/18 07:00 05/30/18 07:00 05/30/18 07:00 - Labs Labs: 05/30/18 07:23 05/30/18 07:23 PT 17.3 SECONDS (9.7-12.2) H 05/08/18 18:29 INR 1.6 05/08/18 18:29 APTT 24 SECONDS (21-34) 05/08/18 18:29 - Head Exam Head Exam: ATRAUMATIC - Eye Exam Eye Exam: Normal appearance - ENT Exam ENT Exam: Mucous Membranes Dry - Respiratory Exam Respiratory Exam: NORMAL BREATHING PATTERN - Cardiovascular Exam Cardiovascular Exam: +S1, +S2 - GI/Abdominal Exam GI & Abdominal Exam: Normal Bowel Sounds Assessment and Plan (1) Pancytopenia Assessment & Plan: secondary to chemotherapy growth factor/transfusion support PRN Status: Acute (2) Small cell lung cancer Assessment & Plan: stage IV outpatient treatment Status: Acute
== END 2018-05-30 15:20 | disposition home or self-care (01) | DRG 871 ==
LOC: C.ER 17:49 → C.9E 22:37 → C.9I 05-09 02:05 → C.3T 05-15 21:40
PROVIDERS: ADMIT Internal Medicine Nephrology; ATTEND Internal Medicine Nephrology
DX: A41.9 Sepsis, unspecified organism (principal); R65.21 Severe sepsis with septic shock; C34.90 Malignant neoplasm of unspecified part of unspecified bronchus or lung; C78.00 Secondary malignant neoplasm of unspecified lung; C78.7 Secondary malignant neoplasm of liver and intrahepatic bile duct; C79.31 Secondary malignant neoplasm of brain; C79.51 Secondary malignant neoplasm of bone; E22.2 Syndrome of inappropriate secretion of antidiuretic hormone; B37.0 Candidal stomatitis; K92.1 Melena; D70.3 Neutropenia due to infection; E78.5 Hyperlipidemia, unspecified; F41.9 Anxiety disorder, unspecified; H53.2 Diplopia; I10 Essential (primary) hypertension; I25.10 Atherosclerotic heart disease of native coronary artery without angina pectoris; K59.00 Constipation, unspecified; Z87.891 Personal history of nicotine dependence; Z92.3 Personal history of irradiation; Z95.1 Presence of aortocoronary bypass graft

== ENCOUNTER 2018-06-11 09:22 | Inpatient (IN) | payer MEDICARE, OTHER ==
[2018-06-11 09:22] VITALS: BMI 22.3
--- NOTE | 2018-06-11 10:08 | C.PDOC ---
History Of Present Illness 62 y/o male with history of Liver CA and Lung CA presents to ED with c/o sob for 3 days. As per family member patient just arrived from [facility] and was seen at Hospital in [facility] for same, given Nebulizer treatments. As per family patient c/o weakness, chills and mild cough, denies chest pain, fever, nausea, vomiting or any other complaints at this time. Time Seen by Provider: 06/11/18 09:40 Chief Complaint (Nursing): Shortness Of Breath History Per: Patient History/Exam Limitations: no limitations Onset/Duration Of Symptoms: Days Current Symptoms Are (Timing): Still Present Past Medical History Reviewed: Historical Data, Nursing Documentation, Vital Signs Vital Signs: Last Vital Signs Temp 97.6 F 06/11/18 09:49 Pulse 104 H 06/11/18 11:29 Resp 19 06/11/18 11:29 BP 151/90 H 06/11/18 11:29 Pulse Ox 99 06/11/18 11:29 - Medical History PMH: Anemia, Anxiety, Arthritis (HX OF B/L HIP PAIN L>R), Gastritis, HTN, Hypercholesterolemia, Hyperlipidemia, Malignancy (metastatic lung CA, s/p radiation) Surgical History: CABG - [facility] EXCISION OF LIVER, PERCUTANEOUS APPROACH, DIAGNOSTIC (07/01/17) INTRODUCTION OF SERUM/TOX/VACCINE INTO MUSCLE, PERC APPROACH (08/25/17) TRANSFUSE NONAUT RED BLOOD CELLS IN PERIPH VEIN, PERC (03/26/18) Family History: States: No Known Family Hx - Social History Hx Alcohol Use: No Hx Substance Use: No - Immunization History Hx Tetanus Toxoid Vaccination: No Hx Influenza Vaccination: No Hx Pneumococcal Vaccination: No Review Of Systems Except As Marked, All Systems Reviewed And Found Negative. Constitutional: Positive for: Chills, Weakness Respiratory: Positive for: Cough, Shortness of Breath Physical Exam - Physical Exam Appears: Non-toxic, No Acute Distress Skin: Warm, Dry, No Rash Head: Atraumatic, Normacephalic Eye(s): bilateral: Normal Inspection Oral Mucosa: Moist Neck: Supple Cardiovascular: Rhythm Regular Respiratory: Normal Breath Sounds, No Rales, No Rhonchi, No Wheezing Gastrointestinal/Abdominal: Soft, No Tenderness, No Guarding, No Rebound, Other (hepatomegaly) Neurological/Psych: Oriented x3, Normal Speech, Normal Cognition ED Course And Treatment - Laboratory Results Result Diagrams: 06/11/18 10:13 06/11/18 10:13 ECG: Interpreted By Me, Viewed By Me ECG Rhythm: Sinus Tachycardia, Nonspecific Changes Interpretation Of ECG: LVH, Normal intervals, Normal acces, Poor R wave progression. Rate From EC (BPM) O2 Sat by Pulse Oximetry: 99 (RA) Pulse Ox Interpretation: Normal Medical Decision Making Medical Decision Making: Assessment: Disposition Discussed With DrHiwot: Ko Mccartney Doctor Will See Patient In The: Hospital Counseled Patient/Family Regarding: Studies Performed, Diagnosis - Disposition Disposition: HOSPITALIZED Disposition Time: 13:01 Condition: FAIR Forms: [facility] (Senegalese) - Clinical Impression Clinical Impression: SOB (shortness of breath) - Scribe Statement The provider has reviewed the documentation as recorded by the Scriblo Maya All medical record entries made by the Scribe were at my direction and personally dictated by me. I have reviewed the chart and agree that the record accurately reflects my personal performance of the history, physical exam, medical decision making, and the department course for this patient. I have also personally directed, reviewed, and agree with the discharge instructions and disposition.
[2018-06-11 10:25] LABS: BASO # 0.1 K/uL (0.0-0.2); BASO % 1.6 % (0.0-2.0); EOS % 0.6 % (0.0-4.0); HEMOGLOBIN 11.8 g/dL (12.0-18.0); LYMPH # 0.6 K/uL (1.0-4.3); LYMPH % 9.5 % (20.0-40.0); MEAN CELL VOLUME 86.5 fL (80.0-94.0); MEAN CORPUSCULAR HEMOGLOBIN 30.5 pg (27.0-31.0); MEAN CORPUSCULAR HGB CONC 35.2 g/dL (33.0-37.0); MEAN PLATELET VOLUME 8.5 fL (7.2-11.7); MONO # 0.6 K/uL (0.0-0.8); MONO % 9.7 % (0.0-10.0); NEUT % 78.6 % (50.0-75.0); NRBC % 1.5 % (0.0-2.0); RBC 3.86 Mil/uL (4.40-5.90); WHITE BLOOD COUNT 6.3 K/uL (4.8-10.8)
[2018-06-11 10:40] LABS: PLATELET COUNT 147 K/uL (130-400)
[2018-06-11 10:45] LABS: INR 1.3; PROTHROMBIN TIME 14.1 SECONDS (9.7-12.2)
[2018-06-11 10:49] LABS: VENOUS BLOOD GAS BASE EXCESS 0.8 mmol/L (0.0-2.0); VENOUS BLOOD GAS PCO2 34 mmHg (40-60); VENOUS BLOOD GAS PO2 41 mm/Hg (30-55); VENOUS BLOOD PH 7.46 (7.32-7.43)
[2018-06-11 11:11] LABS: B-TYPE NATRIURETIC PEPTIDE 226 pg/mL (0-900)
[2018-06-11 11:12] LABS: ALB/GLOB RATIO 0.9 (1.0-2.1); ALBUMIN 3.8 g/dL (3.5-5.0); ALT/SGPT 150 U/L (21-72); AST/SGOT 412 U/L (17-59); BLOOD UREA NITROGEN 11 mg/dL (9-20); CALCIUM 10.2 mg/dl (8.6-10.4); GFR NON-AFRICAN AMERICAN > 60
[2018-06-11 11:13] LABS: BANDS 9 % (0-2); LYMPHOCYTE 9 % (20-40); METAMYELOCYTE 1 % (0-0); MONOCYTE 6 % (0-10); MYELOCYTE 2 % (0-0); NEUTROPHIL 72 % (50-75); NUCLEATED RED BLOOD CELL 1 % (0-0); PLATELET ESTIMATE NORMAL (NORMAL); REACTIVE LYMPHOCYTES 1 % (0-0); TOTAL CELLS COUNTED 100
[2018-06-11 11:14] LABS: ANISOCYTOSIS SLIGHT
[2018-06-11 11:43] LABS: SQUAMOUS EPITHIAL < 1 /hpf (0-5); URINE BILIRUBIN 1+ (NEGATIVE); URINE BLOOD 1+ (NEGATIVE); URINE CLARITY Clear (Clear); URINE COLOR Amber (YELLOW); URINE GLUCOSE (UA) NORMAL (Normal); URINE LEUKOCYTE ESTERASE NEG Leu/uL (Negative); URINE PROTEIN 1+ mg/dL (NEGATIVE)
[2018-06-11] MEDS ORDERED: Iodixanol 320 MG/ML 100 ML BOTTLE IV ONE (12:02)
--- NOTE | 2018-06-11 12:29 | RAD ---
Date of service: 06/11/2018 PROCEDURE: CHEST RADIOGRAPH, 1 VIEW HISTORY: SOB COMPARISON: Chest radiograph dated 05/08/2018. FINDINGS: LUNGS: Clear. PLEURA: No pneumothorax or pleural fluid seen. CARDIOVASCULAR: Prior sternotomy with sternal wires and surgical clips redemonstrated. Atherosclerotic aortic calcifications. Cardiomediastinal silhouette unchanged. OSSEOUS STRUCTURES: Right supraspinatus calcific tendonitis. Unchanged. VISUALIZED UPPER ABDOMEN: Normal. OTHER FINDINGS: None. IMPRESSION: No active disease.
[2018-06-11 13:30] LABS: VENOUS BLOOD GAS BASE EXCESS 2.1 mmol/L (0.0-2.0); VENOUS BLOOD GAS PCO2 35 mmHg (40-60); VENOUS BLOOD GAS PO2 57 mm/Hg (30-55); VENOUS BLOOD PH 7.47 (7.32-7.43)
--- NOTE | 2018-06-11 13:35 | CT ---
Date of service: 06/11/2018 PROCEDURE: CT Chest with contrast (Pulmonary Angiogram) HISTORY: SOB COMPARISON: Plain radiograph performed earlier the same day and CT chest from 05/18/2018. TECHNIQUE: Axial computed tomography images were obtained of the chest in the pulmonary arterial phase of enhancement. Coronal and sagittal reformatted images were created and reviewed. Intravenous contrast dose: 100 mL Visipaque 320 Radiation dose: Total exam DLP = 324.47 mGy-cm. This CT exam was performed using one or more of the following dose reduction techniques: Automated exposure control, adjustment of the mA and/or kV according to patient size, and/or use of iterative reconstruction technique. FINDINGS: PULMONARY ARTERIES: There are no filling defects in the pulmonary arteries to suggest acute pulmonary embolism. AORTA: No acute findings. No thoracic aortic aneurysm. LUNGS: The lungs are well inflated. There are innumerable subcentimeter variable sized nodules in both lungs, the largest subpleural nodule in the right upper lobe measures 6 mm. There is paraseptal emphysema in both upper lobes. There are no endobronchial lesions. There is subsegmental atelectasis in both lower lobes. There is more confluent airspace disease in the right lung base. PLEURAL SPACES: No effusion or pneumothorax. HEART: No cardiomegaly. No significant pericardial effusion. LYMPH NODES: No pathologic lymphadenopathy. BONES, CHEST WALL: There is extensive osteoblastic and osteolytic metastatic disease. OTHER FINDINGS: The liver is enlarged and there are multiple hyperdense masses in the liver. IMPRESSION: No CT evidence for acute pulmonary embolism. Innumerable subcentimeter metastatic nodules in the lungs Multiple liver metastasis. Extensive osteoblastic and osteolytic bony metastasis.
--- NOTE | 2018-06-11 16:36 | CP.PCM.HP ---
Present on Admission - Present on Admission Any Indicators Present on Admission: No Past Patient History - Infectious Disease Hx of Infectious Diseases: None - Past Medical History & Family History Past Medical History?: Yes - Past Social History Smoking Status: Never Smoked - CARDIAC Hx Hypercholesterolemia: Yes Hx Hypertension: Yes - PULMONARY Hx Respiratory Disorders: Yes Hx Lung Cancer: Yes - NEUROLOGICAL Hx Neurological Disorder: No Hx Paralysis: No - HEENT Hx HEENT Problems: No - RENAL Hx Chronic Kidney Disease: No - ENDOCRINE/METABOLIC Hx Endocrine Disorders: No - HEMATOLOGICAL/ONCOLOGICAL Hx Anemia: Yes - INTEGUMENTARY Hx Dermatological Problems: Yes - MUSCULOSKELETAL/RHEUMATOLOGICAL Hx Arthritis: Yes (HX OF B/L HIP PAIN L>R) - GASTROINTESTINAL Hx Gastritis: Yes - GENITOURINARY/GYNECOLOGICAL Hx Genitourinary Disorders: No - PSYCHIATRIC Hx Anxiety: Yes Hx Substance Use: No - SURGICAL HISTORY Hx Coronary Artery Bypass Graft: Yes - ANESTHESIA Hx Anesthesia: Yes Hx Anesthesia Reactions: No Hx Malignant Hyperthermia: No Meds Allergies/Adverse Reactions: Allergies Allergy/AdvReac Type Severity Reaction Status Date / Time No Known Allergies Allergy Verified 06/11/18 09:31 Results - Vital Signs Recent Vital Signs: Last Vital Signs Temp 98.1 F 06/11/18 15:30 Pulse 114 H 06/11/18 15:30 Resp 20 06/11/18 15:30 BP 136/87 06/11/18 15:30 Pulse Ox 99 06/11/18 15:30 - Labs Result Diagrams: 06/11/18 10:13 06/11/18 10:13 Labs: Laboratory Results - last 24 hr 06/11/18 06/11/18 06/11/18 09:55 10:13 10:13 WBC 6.3 RBC 3.86 L Hgb 11.8 L Hct 33.4 L MCV 86.5 MCH 30.5 MCHC 35.2 RDW 17.0 H Plt Count 147 D MPV 8.5 Neut % (Auto) 78.6 H Lymph % (Auto) 9.5 L [place] % (Auto) 9.7 Eos % (Auto) 0.6 Baso % (Auto) 1.6 Neut # (Auto) 5.0 Lymph # (Auto) 0.6 L [place] # (Auto) 0.6 Eos # (Auto) 0.0 Baso # (Auto) 0.1 Neutrophils % (Manual) 72 Band Neutrophils % 9 H Lymphocytes % (Manual) 9 L Reactive Lymphs % 1 H Monocytes % (Manual) 6 Metamyelocytes % 1 H Myelocytes % 2 H Nucleated RBC % 1 H Platelet Estimate Normal Anisocytosis (manual) Slight PT 14.1 H INR 1.3 APTT 29 D-Dimer, Quantitative 1348 H pO2 VBG pH VBG pCO2 VBG HCO3 VBG Total CO2 VBG O2 Sat (Calc) VBG Base Excess VBG Potassium Glucose Lactate Sodium Potassium Chloride Carbon Dioxide Anion Gap BUN Creatinine Est GFR ( Amer) Est GFR (Non-Af Amer) POC Glucose (mg/dL) 115 H Random Glucose Calcium Magnesium Total Bilirubin AST ALT Alkaline Phosphatase Troponin I NT-Pro-B Natriuret Pep Total Protein Albumin Globulin Albumin/Globulin Ratio Venous Blood Potassium Urine Color Urine Clarity Urine pH Ur Specific [place] Urine Protein Urine Glucose (UA) Urine Ketones Urine Blood Urine Nitrate Urine Bilirubin Urine Urobilinogen Ur Leukocyte Esterase Urine WBC (Auto) Urine RBC (Auto) Ur Squamous Epith Cells Influenza Typ A,B (EIA) 06/11/18 06/11/18 06/11/18 10:13 10:17 10:46 WBC RBC Hgb Hct MCV MCH MCHC RDW Plt Count MPV Neut % (Auto) Lymph % (Auto) [place] % (Auto) Eos % (Auto) Baso % (Auto) Neut # (Auto) Lymph # (Auto) [place] # (Auto) Eos # (Auto) Baso # (Auto) Neutrophils % (Manual) Band Neutrophils % Lymphocytes % (Manual) Reactive Lymphs % Monocytes % (Manual) Metamyelocytes % Myelocytes % Nucleated RBC % Platelet Estimate Anisocytosis (manual) PT INR APTT D-Dimer, Quantitative pO2 41 VBG pH 7.46 H VBG pCO2 34 L VBG HCO3 25.1 VBG Total CO2 25.2 VBG O2 Sat (Calc) 79.7 H VBG Base Excess 0.8 VBG Potassium 3.3 L Glucose 127 H Lactate 1.5 Sodium 131 L 129.0 L Potassium 3.4 L Chloride 92 L 93.0 L Carbon Dioxide 25 Anion Gap 17 BUN 11 Creatinine 0.7 L Est GFR ( Amer) > 60 Est GFR (Non-Af Amer) > 60 POC Glucose (mg/dL) Random Glucose 124 H Calcium 10.2 Magnesium 1.2 L Total Bilirubin 7.5 H AST 412 H D ALT 150 H D Alkaline Phosphatase 1401 H Troponin I < 0.0120 NT-Pro-B Natriuret Pep 226 Total Protein 8.3 Albumin 3.8 Globulin 4.4 H Albumin/Globulin Ratio 0.9 L Venous Blood Potassium 3.3 L Urine Color Urine Clarity Urine pH Ur Specific [place] Urine Protein Urine Glucose (UA) Urine Ketones Urine Blood Urine Nitrate Urine Bilirubin Urine Urobilinogen Ur Leukocyte Esterase Urine WBC (Auto) Urine RBC (Auto) Ur Squamous Epith Cells Influenza Typ A,B (EIA) Negative for flu a/b 06/11/18 06/11/18 11:27 13:25 WBC RBC Hgb Hct MCV MCH MCHC RDW Plt Count MPV Neut % (Auto) Lymph % (Auto) [place] % (Auto) Eos % (Auto) Baso % (Auto) Neut # (Auto) Lymph # (Auto) [place] # (Auto) Eos # (Auto) Baso # (Auto) Neutrophils % (Manual) Band Neutrophils % Lymphocytes % (Manual) Reactive Lymphs % Monocytes % (Manual) Metamyelocytes % Myelocytes % Nucleated RBC % Platelet Estimate Anisocytosis (manual) PT INR APTT D-Dimer, Quantitative pO2 57 H VBG pH 7.47 H VBG pCO2 35 L VBG HCO3 26.4 VBG Total CO2 26.6 VBG O2 Sat (Calc) 92.7 H VBG Base Excess 2.1 H VBG Potassium 2.8 L Glucose 115 H Lactate 1.0 Sodium 128.0 L Potassium Chloride 94.0 L Carbon Dioxide Anion Gap BUN Creatinine Est GFR ( Amer) Est GFR (Non-Af Amer) POC Glucose (mg/dL) Random Glucose Calcium Magnesium Total Bilirubin AST ALT Alkaline Phosphatase Troponin I NT-Pro-B Natriuret Pep Total Protein Albumin Globulin Albumin/Globulin Ratio Venous Blood Potassium 2.8 L Urine Color [place] Urine Clarity Clear Urine pH 5.0 Ur Specific [place] 1.016 Urine Protein 1+ H Urine Glucose (UA) Normal Urine Ketones Negative Urine Blood 1+ H Urine Nitrate Negative Urine Bilirubin 1+ H Urine Urobilinogen 4.0 Ur Leukocyte Esterase Neg Urine WBC (Auto) 3 Urine RBC (Auto) 8 H Ur Squamous Epith Cells < 1 Influenza Typ A,B (EIA) Assessment & Plan - Assessment and Plan (Free Text) Plan: Solu-Medrol DuoNeb Demeclocycline KCl Continue same Home medication reaction to the consultations Pulmonary consultations As ordered iv rocephin iv zithromax
[2018-06-11] MEDS: MethylPREDNISolone 40 mg Vial IVP SCH ×2 (18:00→22:23)
[2018-06-11] MEDS: Pantoprazole 40 mg EC Tab PO SCH (18:02)
[2018-06-11] MEDS: Potassium Chloride 20 mEq ER Tab PO SCH (18:02)
[2018-06-11] MEDS: Enoxaparin 40 mg Syringe SC SCH (18:03)
[2018-06-11] MEDS: Oxycodone/Acetaminophen 5/325 mg Tab PO SCH (18:04)
[2018-06-11] MEDS ORDERED: Vancomycin 1 GM 1 GM/250 ML BAG IVPB STA (18:37)
--- NOTE | 2018-06-11 19:01 | CP.PCM.CON ---
Past Patient History - Infectious Disease Hx of Infectious Diseases: None - Past Medical History & Family History Past Medical History?: Yes - Past Social History Smoking Status: Never Smoked - CARDIAC Hx Hypercholesterolemia: Yes Hx Hypertension: Yes - PULMONARY Hx Respiratory Disorders: Yes Hx Lung Cancer: Yes - NEUROLOGICAL Hx Neurological Disorder: No Hx Paralysis: No - HEENT Hx HEENT Problems: No - RENAL Hx Chronic Kidney Disease: No - ENDOCRINE/METABOLIC Hx Endocrine Disorders: No - HEMATOLOGICAL/ONCOLOGICAL Hx Anemia: Yes - INTEGUMENTARY Hx Dermatological Problems: Yes - MUSCULOSKELETAL/RHEUMATOLOGICAL Hx Arthritis: Yes (HX OF B/L HIP PAIN L>R) - GASTROINTESTINAL Hx Gastritis: Yes - GENITOURINARY/GYNECOLOGICAL Hx Genitourinary Disorders: No - PSYCHIATRIC Hx Anxiety: Yes Hx Substance Use: No - SURGICAL HISTORY Hx Coronary Artery Bypass Graft: Yes - ANESTHESIA Hx Anesthesia: Yes Hx Anesthesia Reactions: No Hx Malignant Hyperthermia: No Meds Allergies/Adverse Reactions: Allergies Allergy/AdvReac Type Severity Reaction Status Date / Time No Known Allergies Allergy Verified 06/11/18 09:31 - Medications Medications: Current Medications Albuterol/Ipratropium (Duoneb 3 Mg/0.5 Mg (3 Ml) Ud) 3 ml INH RQ6 [facility] Alprazolam (Xanax) 0.5 mg PO Q12 [facility] Aspirin (Ecotrin) 81 mg PO DAILY [facility] Last Admin: 06/11/18 18:02 Dose: 81 mg Clopidogrel Bisulfate (Plavix) 75 mg PO DAILY [facility] Demeclocycline HCl (Declomycin) 150 mg PO BID [facility] PRN Reason: Protocol Enoxaparin Sodium (Lovenox) 40 mg SC DAILY [facility] Last Admin: 06/11/18 18:03 Dose: 40 mg Famotidine (Pepcid) 20 mg PO DAILY [facility] Fentanyl (Duragesic) 1 patch TD Q72H [facility] Last Admin: 06/11/18 18:04 Dose: 1 patch Fluconazole (Diflucan) 100 mg PO DAILY [facility] PRN Reason: Protocol Azithromycin 500 mg/ Sodium (Chloride) 250 mls @ 250 mls/hr IVPB DAILY [facility] PRN Reason: Protocol Stop: 06/15/18 10:59 Cefepime HCl 1 gm/ Dextrose 50 mls @ 100 mls/hr IVPB Q8H [facility] PRN Reason: Protocol Vancomycin/Sodium Chloride (Vancomycin 1 Gm/Ns 200 Ml) 1 gm in 200 mls @ 133 mls/hr IVPB Q24H [facility] PRN Reason: Protocol Stop: 06/16/18 20:01 Methylprednisolone (Solu-Medrol) 40 mg IVP Q8 [facility] Metoclopramide HCl (Reglan) 5 mg PO DAILY [facility] Nitrofurantoin Macrocrystals (Macrobid) 100 mg PO Q12 [facility] Oxycodone/Acetaminophen (Percocet 5/325 Mg Tab) 1 tab PO Q6 [facility] Stop: 06/14/18 18:01 Last Admin: 06/11/18 18:04 Dose: 1 tab Pantoprazole Sodium (Protonix Ec Tab) 40 mg PO DAILY [facility] Last Admin: 06/11/18 18:02 Dose: 40 mg Potassium Chloride (K-Dur 20 Meq Er Tab) 40 meq PO BRK [facility] Last Admin: 06/11/18 18:02 Dose: 40 meq Rosuvastatin Calcium (Crestor) 20 mg PO DAILY [facility] Simethicone (Mylicon Chew Tab) 80 mg PO DAILY [facility] Results - Vital Signs Recent Vital Signs: Last Vital Signs Temp 98.1 F 06/11/18 15:30 Pulse 114 H 06/11/18 15:30 Resp 20 06/11/18 15:30 BP 136/87 06/11/18 15:30 Pulse Ox 99 06/11/18 15:30 - Labs Result Diagrams: 06/11/18 10:13 06/11/18 10:13 Labs: Laboratory Results - last 24 hr 06/11/18 06/11/18 06/11/18 09:55 10:13 10:13 WBC 6.3 RBC 3.86 L Hgb 11.8 L Hct 33.4 L MCV 86.5 MCH 30.5 MCHC 35.2 RDW 17.0 H Plt Count 147 D MPV 8.5 Neut % (Auto) 78.6 H Lymph % (Auto) 9.5 L Cochran % (Auto) 9.7 Eos % (Auto) 0.6 Baso % (Auto) 1.6 Neut # (Auto) 5.0 Lymph # (Auto) 0.6 L Cochran # (Auto) 0.6 Eos # (Auto) 0.0 Baso # (Auto) 0.1 Neutrophils % (Manual) 72 Band Neutrophils % 9 H Lymphocytes % (Manual) 9 L Reactive Lymphs % 1 H Monocytes % (Manual) 6 Metamyelocytes % 1 H Myelocytes % 2 H Nucleated RBC % 1 H Platelet Estimate Normal Anisocytosis (manual) Slight PT 14.1 H INR 1.3 APTT 29 D-Dimer, Quantitative 1348 H pO2 VBG pH VBG pCO2 VBG HCO3 VBG Total CO2 VBG O2 Sat (Calc) VBG Base Excess VBG Potassium Glucose Lactate Sodium Potassium Chloride Carbon Dioxide Anion Gap BUN Creatinine Est GFR ( Amer) Est GFR (Non-Af Amer) POC Glucose (mg/dL) 115 H Random Glucose Calcium Magnesium Total Bilirubin AST ALT Alkaline Phosphatase Troponin I NT-Pro-B Natriuret Pep Total Protein Albumin Globulin Albumin/Globulin Ratio Venous Blood Potassium Urine Color Urine Clarity Urine pH Ur Specific [place] Urine Protein Urine Glucose (UA) Urine Ketones Urine Blood Urine Nitrate Urine Bilirubin Urine Urobilinogen Ur Leukocyte Esterase Urine WBC (Auto) Urine RBC (Auto) Ur Squamous Epith Cells Influenza Typ A,B (EIA) 06/11/18 06/11/18 06/11/18 10:13 10:17 10:46 WBC RBC Hgb Hct MCV MCH MCHC RDW Plt Count MPV Neut % (Auto) Lymph % (Auto) Cochran % (Auto) Eos % (Auto) Baso % (Auto) Neut # (Auto) Lymph # (Auto) Cochran # (Auto) Eos # (Auto) Baso # (Auto) Neutrophils % (Manual) Band Neutrophils % Lymphocytes % (Manual) Reactive Lymphs % Monocytes % (Manual) Metamyelocytes % Myelocytes % Nucleated RBC % Platelet Estimate Anisocytosis (manual) PT INR APTT D-Dimer, Quantitative pO2 41 VBG pH 7.46 H VBG pCO2 34 L VBG HCO3 25.1 VBG Total CO2 25.2 VBG O2 Sat (Calc) 79.7 H VBG Base Excess 0.8 VBG Potassium 3.3 L Glucose 127 H Lactate 1.5 Sodium 131 L 129.0 L Potassium 3.4 L Chloride 92 L 93.0 L Carbon Dioxide 25 Anion Gap 17 BUN 11 Creatinine 0.7 L Est GFR ( Amer) > 60 Est GFR (Non-Af Amer) > 60 POC Glucose (mg/dL) Random Glucose 124 H Calcium 10.2 Magnesium 1.2 L Total Bilirubin 7.5 H AST 412 H D ALT 150 H D Alkaline Phosphatase 1401 H Troponin I < 0.0120 NT-Pro-B Natriuret Pep 226 Total Protein 8.3 Albumin 3.8 Globulin 4.4 H Albumin/Globulin Ratio 0.9 L Venous Blood Potassium 3.3 L Urine Color Urine Clarity Urine pH Ur Specific [place] Urine Protein Urine Glucose (UA) Urine Ketones Urine Blood Urine Nitrate Urine Bilirubin Urine Urobilinogen Ur Leukocyte Esterase Urine WBC (Auto) Urine RBC (Auto) Ur Squamous Epith Cells Influenza Typ A,B (EIA) Negative for flu a/b 06/11/18 06/11/18 11:27 13:25 WBC RBC Hgb Hct MCV MCH MCHC RDW Plt Count MPV Neut % (Auto) Lymph % (Auto) Cochran % (Auto) Eos % (Auto) Baso % (Auto) Neut # (Auto) Lymph # (Auto) [place]ran # (Auto) Eos # (Auto) Baso # (Auto) Neutrophils % (Manual) Band Neutrophils % Lymphocytes % (Manual) Reactive Lymphs % Monocytes % (Manual) Metamyelocytes % Myelocytes % Nucleated RBC % Platelet Estimate Anisocytosis (manual) PT INR APTT D-Dimer, Quantitative pO2 57 H VBG pH 7.47 H VBG pCO2 35 L VBG HCO3 26.4 VBG Total CO2 26.6 VBG O2 Sat (Calc) 92.7 H VBG Base Excess 2.1 H VBG Potassium 2.8 L Glucose 115 H Lactate 1.0 Sodium 128.0 L Potassium Chloride 94.0 L Carbon Dioxide Anion Gap BUN Creatinine Est GFR ( Amer) Est GFR (Non-Af Amer) POC Glucose (mg/dL) Random Glucose Calcium Magnesium Total Bilirubin AST ALT Alkaline Phosphatase Troponin I NT-Pro-B Natriuret Pep Total Protein Albumin Globulin Albumin/Globulin Ratio Venous Blood Potassium 2.8 L Urine Color [place] Urine Clarity Clear Urine pH 5.0 Ur Specific [place] 1.016 Urine Protein 1+ H Urine Glucose (UA) Normal Urine Ketones Negative Urine Blood 1+ H Urine Nitrate Negative Urine Bilirubin 1+ H Urine Urobilinogen 4.0 Ur Leukocyte Esterase Neg Urine WBC (Auto) 3 Urine RBC (Auto) 8 H Ur Squamous Epith Cells < 1 Influenza Typ A,B (EIA)
[2018-06-11] MEDS: Azithromycin 500 MG in Sodium Chloride 0.9% 250 ML IVPB SCH (19:07)
[2018-06-11] MEDS: Albuterol-Ipratrop 3 mg / 0.5 (3 ml) UD INH SCH (20:08)
[2018-06-11] MEDS: Vancomycin 1 gm/NS 200 ml 1 GM/200 ML BAG IVPB SCH (21:00)
[2018-06-12] MEDS: Oxycodone/Acetaminophen 5/325 mg Tab PO SCH ×4 (00:49→17:45)
[2018-06-12] MEDS: Albuterol-Ipratrop 3 mg / 0.5 (3 ml) UD INH SCH ×4 (01:42→19:56)
[2018-06-12] MEDS: MethylPREDNISolone 40 mg Vial IVP SCH ×3 (06:44→21:16)
[2018-06-12] MEDS: Azithromycin 500 MG in Sodium Chloride 0.9% 250 ML IVPB SCH (09:19)
[2018-06-12] MEDS: Enoxaparin 40 mg Syringe SC SCH (09:21)
[2018-06-12] MEDS: Potassium Chloride 20 mEq ER Tab PO SCH (09:23)
[2018-06-12] MEDS: Pantoprazole 40 mg EC Tab PO SCH (09:23)
--- NOTE | 2018-06-12 13:27 | CP.PCM.CON ---
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 Per the patients daughter, he went to [facility] and was doing well. On his return, he became weak and stopped talking. He currently makes eye contact but does not respond. Past medical history: HTN, GERD, HL, CAD s/p CABG. Past surgical history: Denies. Family history: Denies hematologic and oncologic problems Social histoy: smokes 2 cigs daily x 50 years, former alcohol abuse. Allergies: NKA Review of systems: All remaining review of systems including HEENT, cardiovascular, respiratory, gastrointestinal, genitourinary, musculoskeletal, dermatologic, neurologic, and psychiatric are negative unless mentioned in the HPI. Past Patient History - Infectious Disease Hx of Infectious Diseases: None - Past Medical History & Family History Past Medical History?: Yes - Past Social History Smoking Status: Never Smoked - CARDIAC Hx Hypercholesterolemia: Yes Hx Hypertension: Yes - PULMONARY Hx Respiratory Disorders: Yes Hx Lung Cancer: Yes - NEUROLOGICAL Hx Neurological Disorder: No Hx Paralysis: No - HEENT Hx HEENT Problems: No - RENAL Hx Chronic Kidney Disease: No - ENDOCRINE/METABOLIC Hx Endocrine Disorders: No - HEMATOLOGICAL/ONCOLOGICAL Hx Anemia: Yes - INTEGUMENTARY Hx Dermatological Problems: Yes - MUSCULOSKELETAL/RHEUMATOLOGICAL Hx Arthritis: Yes (HX OF B/L HIP PAIN L>R) - GASTROINTESTINAL Hx Gastritis: Yes - GENITOURINARY/GYNECOLOGICAL Hx Genitourinary Disorders: No - PSYCHIATRIC Hx Anxiety: Yes Hx Substance Use: No - SURGICAL HISTORY Hx Coronary Artery Bypass Graft: Yes - ANESTHESIA Hx Anesthesia: Yes Hx Anesthesia Reactions: No Hx Malignant Hyperthermia: No Meds Allergies/Adverse Reactions: Allergies Allergy/AdvReac Type Severity Reaction Status Date / Time No Known Allergies Allergy Verified 06/11/18 09:31 - Medications Medications: Current Medications Albuterol/Ipratropium (Duoneb 3 Mg/0.5 Mg (3 Ml) Ud) 3 ml INH RQ6 [facility] Last Admin: 06/12/18 08:01 Dose: 3 ml Alprazolam (Xanax) 0.5 mg PO Q12 [facility] Last Admin: 06/12/18 09:28 Dose: Not Given Aspirin (Ecotrin) 81 mg PO DAILY [facility] Last Admin: 06/12/18 09:23 Dose: 81 mg Clopidogrel Bisulfate (Plavix) 75 mg PO DAILY [facility] Last Admin: 06/12/18 09:23 Dose: 75 mg Demeclocycline HCl (Declomycin) 150 mg PO BID [facility]; Protocol Last Admin: 06/12/18 09:24 Dose: 150 mg Enoxaparin Sodium (Lovenox) 40 mg SC DAILY [facility] Last Admin: 06/12/18 09:21 Dose: 40 mg Famotidine (Pepcid) 20 mg PO DAILY [facility] Last Admin: 06/12/18 09:23 Dose: 20 mg Fentanyl (Duragesic) 1 patch TD Q72H [facility] Last Admin: 06/11/18 18:04 Dose: 1 patch Fluconazole (Diflucan) 100 mg PO DAILY [facility]; Protocol Last Admin: 06/12/18 09:24 Dose: 100 mg Azithromycin 500 mg/ Sodium (Chloride) 250 mls @ 250 mls/hr IVPB DAILY [facility]; Protocol Stop: 06/15/18 10:59 Last Admin: 06/12/18 09:19 Dose: 250 mls/hr Cefepime HCl 1 gm/ Dextrose 50 mls @ 100 mls/hr IVPB Q8H [facility]; Protocol Last Admin: 06/12/18 02:56 Dose: 100 mls/hr Vancomycin/Sodium Chloride (Vancomycin 1 Gm/Ns 200 Ml) 1 gm in 200 mls @ 133 mls/hr IVPB Q24H [facility]; Protocol Stop: 06/16/18 20:01 Last Admin: 06/11/18 21:00 Dose: 133 mls/hr Methylprednisolone (Solu-Medrol) 40 mg IVP Q8 [facility] Last Admin: 06/12/18 06:44 Dose: 40 mg Metoclopramide HCl (Reglan) 5 mg PO DAILY [facility] Last Admin: 06/12/18 09:25 Dose: 5 mg Nitrofurantoin Macrocrystals (Macrobid) 100 mg PO Q12 [facility] Last Admin: 06/12/18 09:24 Dose: 100 mg Oxycodone/Acetaminophen (Percocet 5/325 Mg Tab) 1 tab PO Q6 [facility] Stop: 06/14/18 18:01 Last Admin: 06/12/18 06:52 Dose: Not Given Pantoprazole Sodium (Protonix Ec Tab) 40 mg PO DAILY [facility] Last Admin: 06/12/18 09:23 Dose: 40 mg Potassium Chloride (K-Dur 20 Meq Er Tab) 40 meq PO BRK [facility] Last Admin: 06/12/18 09:23 Dose: 40 meq Rosuvastatin Calcium (Crestor) 20 mg PO DAILY [facility] Simethicone (Mylicon Chew Tab) 80 mg PO DAILY [facility] Physical Exam - Head Exam Head Exam: ATRAUMATIC - Eye Exam Eye Exam: Normal appearance, PERRL - ENT Exam ENT Exam: Mucous Membranes Dry - Respiratory Exam Respiratory Exam: NORMAL BREATHING PATTERN - Cardiovascular Exam Cardiovascular Exam: +S1, +S2 - GI/Abdominal Exam GI & Abdominal Exam: Normal Bowel Sounds - Neurological Exam Neurological exam: Altered - Psychiatric Exam Psychiatric exam: Flat Affect - Skin Skin Exam: Warm Results - Vital Signs Recent Vital Signs: Last Vital Signs Temp 97.8 F 06/11/18 23:10 Pulse 123 H 06/12/18 06:37 Resp 18 06/12/18 06:37 BP 143/85 06/12/18 06:37 Pulse Ox 97 06/12/18 06:37 - Labs Result Diagrams: 06/13/18 13:48 06/13/18 13:48 Labs: Laboratory Results - last 24 hr 06/11/18 13:25 pO2 57 H VBG pH 7.47 H VBG pCO2 35 L VBG HCO3 26.4 VBG Total CO2 26.6 VBG O2 Sat (Calc) 92.7 H VBG Base Excess 2.1 H VBG Potassium 2.8 L Sodium 128.0 L Chloride 94.0 L Glucose 115 H Lactate 1.0 Venous Blood Potassium 2.8 L Assessment & Plan (1) Altered mental status Assessment and Plan: ? CVA will check CT head with IV contrast given hx of brain mets Status: Acute (2) Anemia Assessment and Plan: chronic disease from malignancy Status: Acute Priority: High (3) Small cell lung cancer Assessment and Plan: stage IV lung, liver, bone mets rising bilirubin likely from malignancy discussed poor prognosis with family given recent mental status change and rising bilirubin and to consider supportive care palliative care evaluation Thank you for this interesting consult. Status: Acute Priority: High
--- NOTE | 2018-06-12 14:59 | CP.PCM.CON ---
History of Present Illness - History of Present Illness History of Present Illness: dictated Past Patient History - Infectious Disease Hx of Infectious Diseases: None - Past Medical History & Family History Past Medical History?: Yes - Past Social History Smoking Status: Never Smoked - CARDIAC Hx Hypercholesterolemia: Yes Hx Hypertension: Yes - PULMONARY Hx Respiratory Disorders: Yes Hx Lung Cancer: Yes - NEUROLOGICAL Hx Neurological Disorder: No Hx Paralysis: No - HEENT Hx HEENT Problems: No - RENAL Hx Chronic Kidney Disease: No - ENDOCRINE/METABOLIC Hx Endocrine Disorders: No - HEMATOLOGICAL/ONCOLOGICAL Hx Anemia: Yes - INTEGUMENTARY Hx Dermatological Problems: Yes - MUSCULOSKELETAL/RHEUMATOLOGICAL Hx Arthritis: Yes (HX OF B/L HIP PAIN L>R) - GASTROINTESTINAL Hx Gastritis: Yes - GENITOURINARY/GYNECOLOGICAL Hx Genitourinary Disorders: No - PSYCHIATRIC Hx Anxiety: Yes Hx Substance Use: No - SURGICAL HISTORY Hx Coronary Artery Bypass Graft: Yes - ANESTHESIA Hx Anesthesia: Yes Hx Anesthesia Reactions: No Hx Malignant Hyperthermia: No Meds Allergies/Adverse Reactions: Allergies Allergy/AdvReac Type Severity Reaction Status Date / Time No Known Allergies Allergy Verified 06/11/18 09:31 - Medications Medications: Current Medications Albuterol/Ipratropium (Duoneb 3 Mg/0.5 Mg (3 Ml) Ud) 3 ml INH RQ6 [facility] Last Admin: 06/12/18 13:37 Dose: 3 ml Alprazolam (Xanax) 0.5 mg PO Q12 [facility] Last Admin: 06/12/18 09:28 Dose: Not Given Aspirin (Ecotrin) 81 mg PO DAILY [facility] Last Admin: 06/12/18 09:23 Dose: 81 mg Clopidogrel Bisulfate (Plavix) 75 mg PO DAILY [facility] Last Admin: 06/12/18 09:23 Dose: 75 mg Demeclocycline HCl (Declomycin) 150 mg PO BID [facility]; Protocol Last Admin: 06/12/18 09:24 Dose: 150 mg Enoxaparin Sodium (Lovenox) 40 mg SC DAILY [facility] Last Admin: 06/12/18 09:21 Dose: 40 mg Famotidine (Pepcid) 20 mg PO DAILY [facility] Last Admin: 06/12/18 09:23 Dose: 20 mg Fentanyl (Duragesic) 1 patch TD Q72H [facility] Last Admin: 06/11/18 18:04 Dose: 1 patch Fluconazole (Diflucan) 100 mg PO DAILY [facility]; Protocol Last Admin: 06/12/18 09:24 Dose: 100 mg Azithromycin 500 mg/ Sodium (Chloride) 250 mls @ 250 mls/hr IVPB DAILY [facility]; Protocol Stop: 06/15/18 10:59 Last Admin: 06/12/18 09:19 Dose: 250 mls/hr Cefepime HCl 1 gm/ Dextrose 50 mls @ 100 mls/hr IVPB Q8H [facility]; Protocol Last Admin: 06/12/18 02:56 Dose: 100 mls/hr Vancomycin/Sodium Chloride (Vancomycin 1 Gm/Ns 200 Ml) 1 gm in 200 mls @ 133 mls/hr IVPB Q24H [facility]; Protocol Stop: 06/16/18 20:01 Last Admin: 06/11/18 21:00 Dose: 133 mls/hr Methylprednisolone (Solu-Medrol) 40 mg IVP Q8 [facility] Last Admin: 06/12/18 14:34 Dose: 40 mg Metoclopramide HCl (Reglan) 5 mg PO DAILY [facility] Last Admin: 06/12/18 09:25 Dose: 5 mg Nitrofurantoin Macrocrystals (Macrobid) 100 mg PO Q12 [facility] Last Admin: 06/12/18 09:24 Dose: 100 mg Oxycodone/Acetaminophen (Percocet 5/325 Mg Tab) 1 tab PO Q6 [facility] Stop: 06/14/18 18:01 Last Admin: 06/12/18 12:29 Dose: Not Given Pantoprazole Sodium (Protonix Ec Tab) 40 mg PO DAILY [facility] Last Admin: 06/12/18 09:23 Dose: 40 mg Potassium Chloride (K-Dur 20 Meq Er Tab) 40 meq PO BRK [facility] Last Admin: 06/12/18 09:23 Dose: 40 meq Rosuvastatin Calcium (Crestor) 20 mg PO DAILY [facility] Last Admin: 06/12/18 09:35 Dose: 20 mg Simethicone (Mylicon Chew Tab) 80 mg PO DAILY [facility] Results - Vital Signs Recent Vital Signs: Last Vital Signs Temp 97.8 F 06/11/18 23:10 Pulse 123 H 06/12/18 06:37 Resp 18 06/12/18 06:37 BP 143/85 06/12/18 06:37 Pulse Ox 97 06/12/18 06:37 - Labs Result Diagrams: 06/11/18 10:13 06/11/18 10:13
[2018-06-12] MEDS ORDERED: Sodium Chloride 0.9% 1,000 ML IV SCH (15:00)
[2018-06-12] MEDS: Sodium Chloride 0.9% 1,000 ML IV SCH (15:26)
[2018-06-12] MEDS ORDERED: Iodixanol 320 MG/ML 100 ML BOTTLE IV ONE (16:02)
--- NOTE | 2018-06-12 17:02 | CT ---
Date of service: 06/12/2018 PROCEDURE: CT HEAD WITH AND WITHOUT CONTRAST HISTORY: altered mental status, hx of brain mets COMPARISON: Noncontrast head CT 03/26/2018. TECHNIQUE: Axial computed tomography images were obtained through the head/brain with and without intravenous contrast enhancement. Contrast dose: Visipaque 320, 100 cc Radiation dose: Total exam DLP = 1780.49 mGy-cm. This CT exam was performed using one or more of the following dose reduction techniques: Automated exposure control, adjustment of the mA and/or kV according to patient size, and/or use of iterative reconstruction technique. FINDINGS: HEMORRHAGE: No intracranial hemorrhage. BRAIN: No mass, mass effect or edema. Chronic microangiopathy and diffuse cerebral atrophy are reiterated and remain age-appropriate in appearance overall. No abnormal intracranial enhancement. No intracranial mass appreciable at this time. VENTRICLES: Unremarkable. No hydrocephalus. CALVARIUM: Unremarkable. SINUSES: Unremarkable as visualized. No significant inflammatory changes. MASTOID AIR CELLS: Unremarkable as visualized. No mastoid effusion. OTHER FINDINGS: None. IMPRESSION: Stable age related neuro degenerative changes without abnormal intracranial enhancement appreciated above or below the tentorium including the brainstem.
--- NOTE | 2018-06-12 17:36 | CP.PCM.PN ---
Subjective - Date & Time of Evaluation Date of Evaluation: 06/12/18 Time of Evaluation: 10:30 - Subjective Subjective: clinically same Objective - Vital Signs/Intake and Output Vital Signs (last 24 hours): Temp Pulse Resp BP Pulse Ox 99.2 F 99 H 20 127/78 98 06/12/18 15:40 06/12/18 15:40 06/12/18 15:40 06/12/18 15:40 06/12/18 15:40 Intake and Output: 06/12/18 06/12/18 06:59 18:59 Intake Total 200 Balance 200 - Medications Medications: Current Medications Albuterol/Ipratropium (Duoneb 3 Mg/0.5 Mg (3 Ml) Ud) 3 ml INH RQ6 [facility] Last Admin: 06/12/18 13:37 Dose: 3 ml Alprazolam (Xanax) 0.5 mg PO Q12 [facility] Last Admin: 06/12/18 09:28 Dose: Not Given Aspirin (Ecotrin) 81 mg PO DAILY [facility] Last Admin: 06/12/18 09:23 Dose: 81 mg Clopidogrel Bisulfate (Plavix) 75 mg PO DAILY [facility] Last Admin: 06/12/18 09:23 Dose: 75 mg Demeclocycline HCl (Declomycin) 150 mg PO BID [facility]; Protocol Last Admin: 06/12/18 09:24 Dose: 150 mg Enoxaparin Sodium (Lovenox) 40 mg SC DAILY [facility] Last Admin: 06/12/18 09:21 Dose: 40 mg Famotidine (Pepcid) 20 mg PO DAILY [facility] Last Admin: 06/12/18 09:23 Dose: 20 mg Fentanyl (Duragesic) 1 patch TD Q72H [facility] Last Admin: 06/11/18 18:04 Dose: 1 patch Fluconazole (Diflucan) 100 mg PO DAILY [facility]; Protocol Last Admin: 06/12/18 09:24 Dose: 100 mg Azithromycin 500 mg/ Sodium (Chloride) 250 mls @ 250 mls/hr IVPB DAILY [facility]; Protocol Stop: 06/15/18 10:59 Last Admin: 06/12/18 09:19 Dose: 250 mls/hr Cefepime HCl 1 gm/ Dextrose 50 mls @ 100 mls/hr IVPB Q8H [facility]; Protocol Last Admin: 06/12/18 02:56 Dose: 100 mls/hr Vancomycin/Sodium Chloride (Vancomycin 1 Gm/Ns 200 Ml) 1 gm in 200 mls @ 133 mls/hr IVPB Q24H [facility]; Protocol Stop: 06/16/18 20:01 Last Admin: 06/11/18 21:00 Dose: 133 mls/hr Sodium Chloride (Sodium Chloride 0.9%) 1,000 mls @ 60 mls/hr IV .[id number] [facility] Last Admin: 06/12/18 15:26 Dose: 60 mls/hr Methylprednisolone (Solu-Medrol) 40 mg IVP Q8 [facility] Last Admin: 06/12/18 14:34 Dose: 40 mg Metoclopramide HCl (Reglan) 5 mg PO DAILY [facility] Last Admin: 06/12/18 09:25 Dose: 5 mg Nitrofurantoin Macrocrystals (Macrobid) 100 mg PO Q12 [facility] Last Admin: 06/12/18 09:24 Dose: 100 mg Oxycodone/Acetaminophen (Percocet 5/325 Mg Tab) 1 tab PO Q6 [facility] Stop: 06/14/18 18:01 Last Admin: 06/12/18 12:29 Dose: Not Given Pantoprazole Sodium (Protonix Ec Tab) 40 mg PO DAILY [facility] Last Admin: 06/12/18 09:23 Dose: 40 mg Potassium Chloride (K-Dur 20 Meq Er Tab) 40 meq PO BRK [facility] Last Admin: 06/12/18 09:23 Dose: 40 meq Rosuvastatin Calcium (Crestor) 20 mg PO DAILY [facility] Last Admin: 06/12/18 09:35 Dose: 20 mg Simethicone (Mylicon Chew Tab) 80 mg PO DAILY [facility] - Labs Labs: 06/11/18 10:13 06/11/18 10:13 PT 14.1 SECONDS (9.7-12.2) H 06/11/18 10:13 INR 1.3 06/11/18 10:13 APTT 29 SECONDS (21-34) 06/11/18 10:13 - Constitutional Appears: Well - Head Exam Head Exam: ATRAUMATIC, NORMAL INSPECTION, NORMOCEPHALIC - Eye Exam Eye Exam: EOMI, Normal appearance, PERRL Pupil Exam: NORMAL ACCOMODATION, PERRL - ENT Exam ENT Exam: Mucous Membranes Moist, Normal Exam - Neck Exam Neck Exam: Full ROM, Normal Inspection. absent: Lymphadenopathy - Respiratory Exam Respiratory Exam: Decreased Breath Sounds - Cardiovascular Exam Cardiovascular Exam: REGULAR RHYTHM, +S1, +S2 - GI/Abdominal Exam GI & Abdominal Exam: Soft, Diminished Bowel Sounds - Rectal Exam Rectal Exam: Deferred
--- NOTE | 2018-06-12 18:34 | CARD ---
APPROVED REPORT Date of service: 06/11/2018 EKG Measurement Heart [id number] CT [id number] <Conclusion> Sinus tachycardia Cannot rule out Septal infarct, age undetermined Abnormal ECG
[2018-06-12] MEDS ORDERED: Vancomycin 1 GM 1 GM/250 ML BAG IVPB SCH (20:00)
[2018-06-12] MEDS ORDERED: Oxycodone/Acetaminophen 5/325 mg Tab PO ONE (21:06)
[2018-06-12] MEDS: Vancomycin 1 gm/NS 200 ml 1 GM/200 ML BAG IVPB SCH (21:16)
[2018-06-13] MEDS: Oxycodone/Acetaminophen 5/325 mg Tab PO SCH ×5 (00:56→17:41)
[2018-06-13] MEDS: Albuterol-Ipratrop 3 mg / 0.5 (3 ml) UD INH SCH ×4 (01:29→20:01)
--- NOTE | 2018-06-13 02:34 | CON ---
DATE: 06/12/2018HISTORY OF PRESENT ILLNESS: This patient is a 62-year-old male who was here before he has history of lung cancer with metastatic disease to liver as well as in the lungs and to the brain. He had received radiation, and last time, he was here with pancytopenia, was seen by multiple consultants. It seems that he went to [facility] to see his family, and the daughter is here says that the patient was there and he had some altercation with his son and the daughter, and after that he has not been verbalizing. His blood pressure shot up. He saw a doctor there on Monday and flew in here on Monday, and he was brought here straight from the airport. He has been having generalized weakness. He is not verbalizing. He is incontinent of urine. He is not able to communicate, but it seems he comprehends. He has had previous radiation to the lesions. He does have a metastatic disease. Last time, I was told that he is not aware of his disease but the daughter is here at this time. He has many children, one of them is here, and says her father is aware of having it in the lung and the liver. He is noncommunicating. He states that he is also having some chills, looks like may be because he is wet, and he is incontinent, I have asked the nurse to put in a [place] catheter. There is no nausea, no vomiting. No chest pain. No fever reported but they said the blood pressure had gone very up, and he was admitted here with shortness of breath, and right now, he is not verbalizing. He is going to go for another CAT scan. PAST MEDICAL HISTORY: Significant for anemia, anxiety, arthritis, gastritis, hypertension, hyperlipidemia, malignancy metastatic, status post radiation. Also has had previous CABG done. FAMILY HISTORY: Noncontributory. He does have many kids. SOCIAL HISTORY: He has no alcohol. No substance abuse. He is an ex-smoker. He just traveled for a week. I am told his medication, he was on antibiotics which on , and Monday, he had this weakness spell, he is not able to communicate since then. He has not been talking and not verbalizing and appears weak. He does have cough and does have shortness of breath, and there were some chills and weakness that brought him here. He is also incontinent of urine. There is no nausea, vomiting, or diarrhea reported; and he has no skin lesions. He is weak. He is not even lifting his leg from the bed at this time. ALLERGIES: HE IS NOT ALLERGIC TO ANY MEDICATIONS. MEDICATIONS: He is on DuoNeb; Xanax; Ecotrin; Zithromax; cefepime; Plavix; demeclocycline, he is on 150 b.i.d. 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 He is on Diflucan, Solu-Medrol, Reglan, Macrobid. Percocet was not given; Protonix; K-Dur; Crestor; simethicone. I am not sure if he is taking all these medications as he is barely verbalizing, and I have left him on IV fluids as he is not having any oral intake. PHYSICAL EXAMINATION: VITAL SIGNS: T-max is 97.8, heart rate of 116, blood pressure 148/88, respirations are 20. GENERAL: He stares but he is not able to answer any question, and this was not so before. He was not very talkative but he was able to give some answers, yes or no. HEENT: Head is atraumatic. Pupils are reacting to light. Tongue, I am not able to see. NECK: Supple. JVP is flat. LUNGS: Clear at this time. No crackles or rales present. Decreased breath sounds bilaterally. HEART: S1, S2 regular. He is tachycardic. He has a midline sternal wound. ABDOMEN: Soft, nontender. No guarding, no rigidity present. EXTREMITIES: Have no edema, clubbing, or cyanosis. LABORATORY DATA: Labs are noted. Labs showed white count is 6.3, hemoglobin 11.8, hematocrit 33.4, platelet count is 147, potassium is 3.4, chlorides are 92, creatinine 0.7, total bili 7.5. He remains icteric. AST is 412, ALT is 150, alk phos is 1401 which is probably due to his metastatic disease, so he is jaundiced and his sodium is low. I put him on demeclocycline. I have just put him on fluids for insensible loss as he is only getting whatever is in the antibiotics, and he had blood cultures done which are negative so far. Urine culture is negative. All the family is refusing a [place] catheter, so at this time, I am leaving him on the antibiotics. He had a chest CT which showed multiple metastatic disease in the lungs, in the liver, and in the bone. He is on multiple drugs at this time, and we will wait for the family to decide and I am waiting for the CAT scan of the head, and the daughter says that he already had mets to the brain in the past. At this time, he did have some shaking but I think it was because he is incontinent. IMPRESSION: This patient has a metastatic lung disease and came in with shortness of breath and now probably having stroke from metastatic disease to the brain, and has syndrome of inappropriate antidiuretic hormone secretion and metastatic disease to the lungs, liver, and is jaundiced with syndrome of inappropriate antidiuretic hormone secretion but he is not neutropenic at this time and bone marrow has recovered to some extent. Apple Rasmussen MD
[2018-06-13] MEDS: MethylPREDNISolone 40 mg Vial IVP SCH ×3 (05:31→22:43)
[2018-06-13] MEDS: Sodium Chloride 0.9% 1,000 ML IV SCH ×2 (07:45→13:51)
[2018-06-13] MEDS: Simethicone 80 mg Chewtab PO SCH (09:27)
[2018-06-13] MEDS: Pantoprazole 40 mg EC Tab PO SCH (09:28)
[2018-06-13] MEDS: Potassium Chloride 20 mEq ER Tab PO SCH (09:28)
[2018-06-13] MEDS: Azithromycin 500 MG in Sodium Chloride 0.9% 250 ML IVPB SCH (09:29)
[2018-06-13] MEDS: Enoxaparin 40 mg Syringe SC SCH (09:30)
--- NOTE | 2018-06-13 12:43 | CP.PCM.CON ---
History of Present Illness - History of Present Illness History of Present Illness: Palliative consult requested by Kwadwo STOUT for goals of care discussion Patient is a 62 yo male admitted to ed WITH sob x3 DAYS, weakness, mild cough and chills. Patient was at [facility] visiting his friends. Per daughter he had good time there until he encountered some interaction with his son and daughter after what his BP went up to SBP > 200 and patient become non verbal. Patient was taken to local hospital at [facility] where was given nebulizer for SOB. The fallowing day patient fly back to [facility] and went straight to ED from the airport. CT chest in ED was negative PE and showed multiple liver and extensive bone mets. Doctor Kathia called on consult. 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 PMH: Liver and lung CA with mets to brain and bones, S/P radiation, anemia, anxiety Soc. Hx: single, lives at home, two daughters very much involved in care Fam. Hx: denied Review of Systems - Review of Systems All systems: reviewed and no additional remarkable complaints except Review of Systems: ROS unobtainable from patient due to condition. Per daughter at bed side, he is more alert today but complains of more pain to RUQ Past Patient History - Infectious Disease Hx of Infectious Diseases: None - Past Medical History & Family History Past Medical History?: Yes - Past Social History Smoking Status: Never Smoked - CARDIAC Hx Hypercholesterolemia: Yes Hx Hypertension: Yes - PULMONARY Hx Respiratory Disorders: Yes Hx Lung Cancer: Yes - NEUROLOGICAL Hx Neurological Disorder: No Hx Paralysis: No - HEENT Hx HEENT Problems: No - RENAL Hx Chronic Kidney Disease: No - ENDOCRINE/METABOLIC Hx Endocrine Disorders: No - HEMATOLOGICAL/ONCOLOGICAL Hx Anemia: Yes - INTEGUMENTARY Hx Dermatological Problems: Yes - MUSCULOSKELETAL/RHEUMATOLOGICAL Hx Arthritis: Yes (HX OF B/L HIP PAIN L>R) - GASTROINTESTINAL Hx Gastritis: Yes - GENITOURINARY/GYNECOLOGICAL Hx Genitourinary Disorders: No - PSYCHIATRIC Hx Anxiety: Yes Hx Substance Use: No - SURGICAL HISTORY Hx Coronary Artery Bypass Graft: Yes - ANESTHESIA Hx Anesthesia: Yes Hx Anesthesia Reactions: No Hx Malignant Hyperthermia: No Meds Allergies/Adverse Reactions: Allergies Allergy/AdvReac Type Severity Reaction Status Date / Time No Known Allergies Allergy Verified 06/11/18 09:31 - Medications Medications: Current Medications Albuterol/Ipratropium (Duoneb 3 Mg/0.5 Mg (3 Ml) Ud) 3 ml INH RQ6 [facility] Last Admin: 06/13/18 01:29 Dose: 3 ml Alprazolam (Xanax) 0.5 mg PO Q12 [facility] Last Admin: 06/13/18 09:27 Dose: 0.5 mg Aspirin (Ecotrin) 81 mg PO DAILY [facility] Last Admin: 06/13/18 09:28 Dose: 81 mg Clopidogrel Bisulfate (Plavix) 75 mg PO DAILY [facility] Last Admin: 06/13/18 09:28 Dose: 75 mg Demeclocycline HCl (Declomycin) 150 mg PO BID [facility]; Protocol Last Admin: 06/13/18 09:26 Dose: 150 mg Enoxaparin Sodium (Lovenox) 40 mg SC DAILY [facility] Last Admin: 06/13/18 09:30 Dose: 40 mg Famotidine (Pepcid) 20 mg PO DAILY [facility] Last Admin: 06/13/18 09:27 Dose: 20 mg Fentanyl (Duragesic) 1 patch TD Q72H [facility] Last Admin: 06/11/18 18:04 Dose: 1 patch Fluconazole (Diflucan) 100 mg PO DAILY [facility]; Protocol Last Admin: 06/13/18 09:26 Dose: 100 mg Azithromycin 500 mg/ Sodium (Chloride) 250 mls @ 250 mls/hr IVPB DAILY [facility]; Protocol Stop: 06/15/18 10:59 Last Admin: 06/13/18 09:29 Dose: 250 mls/hr Cefepime HCl 1 gm/ Dextrose 50 mls @ 100 mls/hr IVPB Q8H [facility]; Protocol Last Admin: 06/13/18 12:00 Dose: 100 mls/hr Vancomycin/Sodium Chloride (Vancomycin 1 Gm/Ns 200 Ml) 1 gm in 200 mls @ 133 mls/hr IVPB Q24H [facility]; Protocol Stop: 06/16/18 20:01 Last Admin: 06/12/18 21:16 Dose: 133 mls/hr Sodium Chloride (Sodium Chloride 0.9%) 1,000 mls @ 60 mls/hr IV .[id number] [facility] Last Admin: 06/13/18 07:45 Dose: Not Given Methylprednisolone (Solu-Medrol) 40 mg IVP Q8 [facility] Last Admin: 06/13/18 05:31 Dose: 40 mg Metoclopramide HCl (Reglan) 5 mg PO DAILY [facility] Last Admin: 06/13/18 09:28 Dose: 5 mg Nitrofurantoin Macrocrystals (Macrobid) 100 mg PO Q12 [facility] Last Admin: 06/13/18 09:27 Dose: 100 mg Oxycodone/Acetaminophen (Percocet 5/325 Mg Tab) 1 tab PO Q6 [facility] Stop: 06/14/18 18:01 Last Admin: 06/13/18 12:06 Dose: 1 tab Pantoprazole Sodium (Protonix Ec Tab) 40 mg PO DAILY [facility] Last Admin: 06/13/18 09:28 Dose: 40 mg Potassium Chloride (K-Dur 20 Meq Er Tab) 40 meq PO BRK [facility] Last Admin: 06/13/18 09:28 Dose: 40 meq Rosuvastatin Calcium (Crestor) 20 mg PO DAILY [facility] Last Admin: 06/12/18 09:35 Dose: 20 mg Simethicone (Mylicon Chew Tab) 80 mg PO DAILY [facility] Last Admin: 06/13/18 09:27 Dose: 80 mg Physical Exam - Constitutional Appears: Chronically Ill - Head Exam Head Exam: ATRAUMATIC, NORMAL INSPECTION, NORMOCEPHALIC - Eye Exam Eye Exam: EOMI, Normal appearance, PERRL Pupil Exam: NORMAL ACCOMODATION, PERRL - ENT Exam ENT Exam: Mucous Membranes Dry - Neck Exam Neck exam: Positive for: Normal Inspection - Respiratory Exam Respiratory Exam: Decreased Breath Sounds, NORMAL BREATHING PATTERN - Cardiovascular Exam Cardiovascular Exam: Tachycardia, REGULAR RHYTHM - GI/Abdominal Exam GI & Abdominal Exam: Distended, Hypoactive Bowel Sounds - Rectal Exam Rectal Exam: Deferred - Exam Additional comments: Condom catheter - Extremities Exam Extremities exam: Positive for: pedal edema - Back Exam Back exam: NORMAL INSPECTION - Neurological Exam Neurological exam: Altered - Psychiatric Exam Psychiatric exam: Flat Affect - Skin Additional comments: jaundice Results - Vital Signs Recent Vital Signs: Last Vital Signs Temp 97.9 F 06/13/18 07:00 Pulse 117 H 06/13/18 08:00 Resp 20 06/13/18 07:00 BP 162/89 H 06/13/18 07:00 Pulse Ox 96 06/13/18 07:00 - Labs Result Diagrams: 06/11/18 10:13 06/11/18 10:13 Assessment & Plan - Assessment and Plan (Free Text) Assessment: Palliative consult Full Code, there is no Advance Directive on chart, PPSP 10% I reviewed Medical records, all diagnostic studies, examined patient in the bed. Patient looks chronically ill, yes closed, opens his eyes upon calling his name or gentle sternal rub. Remains non verbal. Does not fallow commends.Per daughter at bed side, patient spoke to her a few words in [place], today. Skin and sclera jaundiced, T. Srinivasan 7.5. Breath sounds diminished, abdomen distended and rigid to touch. Patient reacts in pain when abdomen palpated. especially to RUQ. Fentanyl patch 50 mcg and Percocet PO Q 6 hr PRN, on board for pain. Per daughter, patient is able to swallow food when spoon fed. BP 162/89, HR 117, O2Sat 96% RA With daughter at bed side I discussed patient's clinical presentation. The patient and the family are well known to me from previous admissions. The daughter knows about the cancer diagnosis, but never had full understanding about the consequences of metastasizing cancer. This last event of losing ability to talk, she connects to the stress patient experienced during the family interaction. I provided her with the latest CT chest findings indicating bone mets and known mets to the brain. Goals of care discussed. The daughter is requesting Full Cde and all available measures to be applied to support patient;s life. I renate everette about possibility of aspiration due to lethargy and educated her on aspiration precautions while feeding her father. Impression * Chronically ill male with metastatic disease * AMS most likely due to brain mets * Lethargy * At risk for aspiration when fed PO * Non verbal * Limited mobility * Cancer related pain * Family has unrealistic expectations Suggestion * Promote safety * Aspiration precautions * Crush meds and give with apple sauce * Full Code * IVF for hydration * Patient would benefit from Comfort care Palliative care ill continue to fallow up with this patient and assist family during this difficult time. Advance care planing 35 min
[2018-06-13 13:57] LABS: BASO % 0.3 % (0.0-2.0); LYMPH # 0.5 K/uL (1.0-4.3); LYMPH % 4.3 % (20.0-40.0); MEAN CELL VOLUME 88.3 fL (80.0-94.0); MEAN PLATELET VOLUME 8.7 fL (7.2-11.7); MONO # 0.7 K/uL (0.0-0.8); MONO % 5.5 % (0.0-10.0); NEUT # 10.7 K/uL (1.8-7.0); NEUT % 89.9 % (50.0-75.0); NRBC % 0.5 % (0.0-2.0); PLATELET COUNT 137 K/uL (130-400); RBC 3.27 Mil/uL (4.40-5.90)
[2018-06-13 13:59] LABS: HEMOGLOBIN 9.8 g/dL (12.0-18.0); WHITE BLOOD COUNT 11.9 K/uL (4.8-10.8)
[2018-06-13 14:22] LABS: BANDS 2 % (0-2); LYMPHOCYTE 1 % (20-40); MONOCYTE 2 % (0-10); NEUTROPHIL 95 % (50-75); TOTAL CELLS COUNTED 100
[2018-06-13 14:23] LABS: ANISOCYTOSIS SLIGHT; HYPOCHROMIC SLIGHT; PLATELET ESTIMATE NORMAL (NORMAL); POLYCHROMIC SLIGHT
[2018-06-13 14:26] LABS: ALB/GLOB RATIO 0.9 (1.0-2.1); ALBUMIN 3.2 g/dL (3.5-5.0); ALT/SGPT 157 U/L (21-72); AST/SGOT 344 U/L (17-59); BLOOD UREA NITROGEN 16 mg/dL (9-20); CALCIUM 9.3 mg/dl (8.6-10.4); GFR NON-AFRICAN AMERICAN > 60
[2018-06-13] MEDS ORDERED: Magnesium Sulfate 1 gm in D5W 1 GM/100 ML BAG IVPB ONE (17:08)
--- NOTE | 2018-06-13 17:08 | CP.PCM.PN ---
Subjective - Date & Time of Evaluation Date of Evaluation: 06/13/18 Time of Evaluation: 17:08 Objective - Vital Signs/Intake and Output Vital Signs (last 24 hours): Temp Pulse Resp BP Pulse Ox 97.8 F 119 H 20 136/63 96 06/13/18 15:32 06/13/18 15:32 06/13/18 15:32 06/13/18 15:32 06/13/18 15:32 Intake and Output: 06/13/18 06/13/18 06:59 18:59 Intake Total 600 810 Balance 600 810 - Medications Medications: Current Medications Albuterol/Ipratropium (Duoneb 3 Mg/0.5 Mg (3 Ml) Ud) 3 ml INH RQ6 [facility] Last Admin: 06/13/18 13:24 Dose: 3 ml Alprazolam (Xanax) 0.5 mg PO Q12 [facility] Last Admin: 06/13/18 09:27 Dose: 0.5 mg Aspirin (Ecotrin) 81 mg PO DAILY [facility] Last Admin: 06/13/18 09:28 Dose: 81 mg Clopidogrel Bisulfate (Plavix) 75 mg PO DAILY [facility] Last Admin: 06/13/18 09:28 Dose: 75 mg Demeclocycline HCl (Declomycin) 150 mg PO BID [facility]; Protocol Last Admin: 06/13/18 09:26 Dose: 150 mg Enoxaparin Sodium (Lovenox) 40 mg SC DAILY [facility] Last Admin: 06/13/18 09:30 Dose: 40 mg Famotidine (Pepcid) 20 mg PO DAILY [facility] Last Admin: 06/13/18 09:27 Dose: 20 mg Fentanyl (Duragesic) 1 patch TD Q72H [facility] Last Admin: 06/11/18 18:04 Dose: 1 patch Fluconazole (Diflucan) 100 mg PO DAILY [facility]; Protocol Last Admin: 06/13/18 09:26 Dose: 100 mg Azithromycin 500 mg/ Sodium (Chloride) 250 mls @ 250 mls/hr IVPB DAILY [facility]; P rotocol Stop: 06/15/18 10:59 Last Admin: 06/13/18 09:29 Dose: 250 mls/hr Cefepime HCl 1 gm/ Dextrose 50 mls @ 100 mls/hr IVPB Q8H [facility]; Protocol Last Admin: 06/13/18 12:00 Dose: 100 mls/hr Vancomycin/Sodium Chloride (Vancomycin 1 Gm/Ns 200 Ml) 1 gm in 200 mls @ 133 mls/hr IVPB Q24H [facility]; Protocol Stop: 06/16/18 20:01 Last Admin: 06/12/18 21:16 Dose: 133 mls/hr Sodium Chloride (Sodium Chloride 0.9%) 1,000 mls @ 60 mls/hr IV .[id number] [facility] Last Admin: 06/13/18 13:51 Dose: 60 mls/hr Methylprednisolone (Solu-Medrol) 40 mg IVP Q8 [facility] Last Admin: 06/13/18 14:04 Dose: 40 mg Metoclopramide HCl (Reglan) 5 mg PO DAILY [facility] Last Admin: 06/13/18 09:28 Dose: 5 mg Nitrofurantoin Macrocrystals (Macrobid) 100 mg PO Q12 [facility] Last Admin: 06/13/18 09:27 Dose: 100 mg Oxycodone/Acetaminophen (Percocet 5/325 Mg Tab) 1 tab PO Q6 [facility] Stop: 06/14/18 18:01 Last Admin: 06/13/18 12:00 Dose: Not Given Pantoprazole Sodium (Protonix Ec Tab) 40 mg PO DAILY [facility] Last Admin: 06/13/18 09:28 Dose: 40 mg Potassium Chloride (K-Dur 20 Meq Er Tab) 40 meq PO BRK [facility] Last Admin: 06/13/18 09:28 Dose: 40 meq Rosuvastatin Calcium (Crestor) 20 mg PO HS [facility] Simethicone (Mylicon Chew Tab) 80 mg PO DAILY [facility] Last Admin: 06/13/18 09:27 Dose: 80 mg - Labs Labs: 06/13/18 13:48 06/13/18 13:48 PT 14.1 SECONDS (9.7-12.2) H 06/11/18 10:13 INR 1.3 06/11/18 10:13 APTT 29 SECONDS (21-34) 06/11/18 10:13
[2018-06-13] MEDS: Vancomycin 1 gm/NS 200 ml 1 GM/200 ML BAG IVPB SCH (20:24)
--- NOTE | 2018-06-13 20:59 | CP.PCM.PN ---
Subjective - Date & Time of Evaluation Date of Evaluation: 06/13/18 Time of Evaluation: 18:00 - Subjective Subjective: Makes eye contact, no verbal response daughter at bedside. Objective - Vital Signs/Intake and Output Vital Signs (last 24 hours): Temp Pulse Resp BP Pulse Ox 99.3 F 119 H 20 136/63 96 06/13/18 20:03 06/13/18 15:32 06/13/18 15:32 06/13/18 15:32 06/13/18 15:32 Intake and Output: 06/13/18 06/14/18 18:59 06:59 Intake Total 810 Balance 810 - Medications Medications: Current Medications Albuterol/Ipratropium (Duoneb 3 Mg/0.5 Mg (3 Ml) Ud) 3 ml INH RQ6 [facility] Last Admin: 06/13/18 20:01 Dose: 3 ml Alprazolam (Xanax) 0.5 mg PO Q12 [facility] Last Admin: 06/13/18 09:27 Dose: 0.5 mg Aspirin (Ecotrin) 81 mg PO DAILY [facility] Last Admin: 06/13/18 09:28 Dose: 81 mg Chlorpromazine (Thorazine) 25 mg PO QID [facility] Last Admin: 06/13/18 19:34 Dose: 25 mg Clopidogrel Bisulfate (Plavix) 75 mg PO DAILY [facility] Last Admin: 06/13/18 09:28 Dose: 75 mg Demeclocycline HCl (Declomycin) 150 mg PO BID [facility]; Protocol Last Admin: 06/13/18 17:42 Dose: 150 mg Enoxaparin Sodium (Lovenox) 40 mg SC DAILY [facility] Last Admin: 06/13/18 09:30 Dose: 40 mg Famotidine (Pepcid) 20 mg PO DAILY [facility] Last Admin: 06/13/18 09:27 Dose: 20 mg Fentanyl (Duragesic) 1 patch TD Q72H [facility] Last Admin: 06/11/18 18:04 Dose: 1 patch Cefepime HCl 1 gm/ Dextrose 50 mls @ 100 mls/hr IVPB Q8H [facility]; Protocol Last Admin: 06/13/18 19:28 Dose: 100 mls/hr Vancomycin/Sodium Chloride (Vancomycin 1 Gm/Ns 200 Ml) 1 gm in 200 mls @ 133 mls/hr IVPB Q24H [facility]; Protocol Stop: 06/16/18 20:01 Last Admin: 06/13/18 20:24 Dose: 133 mls/hr Sodium Chloride (Sodium Chloride 0.9%) 1,000 mls @ 60 mls/hr IV .[id number] [facility] Last Admin: 06/13/18 13:51 Dose: 60 mls/hr Methylprednisolone (Solu-Medrol) 40 mg IVP Q8 [facility] Last Admin: 06/13/18 14:04 Dose: 40 mg Metoclopramide HCl (Reglan) 5 mg PO DAILY [facility] Last Admin: 06/13/18 09:28 Dose: 5 mg Oxycodone/Acetaminophen (Percocet 5/325 Mg Tab) 1 tab PO Q6 [facility] Stop: 06/14/18 18:01 Last Admin: 06/13/18 17:41 Dose: 1 tab Pantoprazole Sodium (Protonix Ec Tab) 40 mg PO DAILY [facility] Last Admin: 06/13/18 09:28 Dose: 40 mg Potassium Chloride (K-Dur 20 Meq Er Tab) 40 meq PO BRK [facility] Last Admin: 06/13/18 09:28 Dose: 40 meq Rosuvastatin Calcium (Crestor) 20 mg PO HS [facility] Simethicone (Mylicon Chew Tab) 80 mg PO DAILY [facility] Last Admin: 06/13/18 09:27 Dose: 80 mg - Labs Labs: 06/13/18 13:48 06/13/18 13:48 PT 14.1 SECONDS (9.7-12.2) H 06/11/18 10:13 INR 1.3 06/11/18 10:13 APTT 29 SECONDS (21-34) 06/11/18 10:13 - Head Exam Head Exam: ATRAUMATIC - Eye Exam Eye Exam: Normal appearance - ENT Exam ENT Exam: Mucous Membranes Dry - Respiratory Exam Respiratory Exam: NORMAL BREATHING PATTERN - Cardiovascular Exam Cardiovascular Exam: +S1, +S2 - GI/Abdominal Exam GI & Abdominal Exam: Normal Bowel Sounds Assessment and Plan (1) Altered mental status Assessment & Plan: ? CVA CT head negative for acute change Status: Acute (2) Anemia Assessment & Plan: chronic disease from malignancy Status: Acute (3) Small cell lung cancer Assessment & Plan: stage IV AMS and rising bilirubin - poor prognosis and unlikely to benefit from further chemotherapy discussed with the patients daughter supportive care palliative care evaluation Status: Acute
--- NOTE | 2018-06-13 22:09 | CP.PCM.PN ---
Subjective - Date & Time of Evaluation Date of Evaluation: 06/13/18 Time of Evaluation: 10:30 - Subjective Subjective: clinically same Objective - Vital Signs/Intake and Output Vital Signs (last 24 hours): Temp Pulse Resp BP Pulse Ox 99.3 F 119 H 20 136/63 96 06/13/18 20:03 06/13/18 15:32 06/13/18 15:32 06/13/18 15:32 06/13/18 15:32 Intake and Output: 06/13/18 06/14/18 18:59 06:59 Intake Total 810 Balance 810 - Medications Medications: Current Medications Albuterol/Ipratropium (Duoneb 3 Mg/0.5 Mg (3 Ml) Ud) 3 ml INH RQ6 [facility] Last Admin: 06/13/18 20:01 Dose: 3 ml Alprazolam (Xanax) 0.5 mg PO Q12 [facility] Last Admin: 06/13/18 09:27 Dose: 0.5 mg Aspirin (Ecotrin) 81 mg PO DAILY [facility] Last Admin: 06/13/18 09:28 Dose: 81 mg Chlorpromazine (Thorazine) 25 mg PO QID [facility] Last Admin: 06/13/18 19:34 Dose: 25 mg Clopidogrel Bisulfate (Plavix) 75 mg PO DAILY [facility] Last Admin: 06/13/18 09:28 Dose: 75 mg Demeclocycline HCl (Declomycin) 150 mg PO BID [facility]; Protocol Last Admin: 06/13/18 17:42 Dose: 150 mg Enoxaparin Sodium (Lovenox) 40 mg SC DAILY [facility] Last Admin: 06/13/18 09:30 Dose: 40 mg Famotidine (Pepcid) 20 mg PO DAILY [facility] Last Admin: 06/13/18 09:27 Dose: 20 mg Fentanyl (Duragesic) 1 patch TD Q72H [facility] Last Admin: 06/11/18 18:04 Dose: 1 patch Cefepime HCl 1 gm/ Dextrose 50 mls @ 100 mls/hr IVPB Q8H [facility]; Protocol Last Admin: 06/13/18 19:28 Dose: 100 mls/hr Vancomycin/Sodium Chloride (Vancomycin 1 Gm/Ns 200 Ml) 1 gm in 200 mls @ 133 mls/hr IVPB Q24H [facility]; Protocol Stop: 06/16/18 20:01 Last Admin: 06/13/18 20:24 Dose: 133 mls/hr Sodium Chloride (Sodium Chloride 0.9%) 1,000 mls @ 60 mls/hr IV .[id number] [facility] Last Admin: 06/13/18 13:51 Dose: 60 mls/hr Methylprednisolone (Solu-Medrol) 40 mg IVP Q8 [facility] Last Admin: 06/13/18 14:04 Dose: 40 mg Metoclopramide HCl (Reglan) 5 mg PO DAILY [facility] Last Admin: 06/13/18 09:28 Dose: 5 mg Oxycodone/Acetaminophen (Percocet 5/325 Mg Tab) 1 tab PO Q6 [facility] Stop: 06/14/18 18:01 Last Admin: 06/13/18 17:41 Dose: 1 tab Pantoprazole Sodium (Protonix Ec Tab) 40 mg PO DAILY [facility] Last Admin: 06/13/18 09:28 Dose: 40 mg Potassium Chloride (K-Dur 20 Meq Er Tab) 40 meq PO BRK [facility] Last Admin: 06/13/18 09:28 Dose: 40 meq Rosuvastatin Calcium (Crestor) 20 mg PO HS [facility] Simethicone (Mylicon Chew Tab) 80 mg PO DAILY [facility] Last Admin: 06/13/18 09:27 Dose: 80 mg - Labs Labs: 06/13/18 13:48 06/13/18 13:48 PT 14.1 SECONDS (9.7-12.2) H 06/11/18 10:13 INR 1.3 06/11/18 10:13 APTT 29 SECONDS (21-34) 06/11/18 10:13
[2018-06-14] MEDS: Sodium Chloride 0.9% 1,000 ML IV SCH ×2 (00:20→10:25)
[2018-06-14] MEDS: Albuterol-Ipratrop 3 mg / 0.5 (3 ml) UD INH SCH ×4 (01:11→19:27)
--- NOTE | 2018-06-14 02:10 | PN ---
DATE: 06/13/2018 INFECTIOUS DISEASE FOLLOWUP SUBJECTIVE: The patient was seen today. He was more awake and alert but he is not able to communicate still, and his CAT scan was not showing any new lesion or any abnormalities. He remains icteric. His daughter was trying to feed him and he had no difficulty being fed but he was hallucinating a little bit, had visual hallucinations. Otherwise, he had no respiratory trouble and the daughter said he sometimes behaves like this, and his sodium goes down so we looked into the labs also. The labs were stable except for being jaundiced. OBJECTIVE: VITAL SIGNS: T-max is 99.3, heart rate is 119, blood pressure 136/63, respirations are 20. HEENT: Head is atraumatic, normocephalic. Icterus present. NECK: Supple. LUNGS: Clear. HEART: S1, S2 regular. ABDOMEN: Soft. No guarding, no rigidity present. EXTREMITIES: Have no edema. Labs are noted. Labs show white count today was 11.9, hemoglobin 9.8, hematocrit 28.8, platelet count is 137. Sodium is 132, potassium 4.2, chlorides are 99, BUN is 19, and creatinine 0.7. His glucose was 153, total bili 8.4. LFTs are elevated, most likely due to the metastatic disease, could be medications. 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 This patient has metastatic disease. He was seen by the palliative care nurse also, and cultures are all negative. I will try to cut down on certain medicines as Diflucan can also worsen, we will take that away, and also take away the Zithromax and leave him on the other medications. It could be that the medications may have caused problems along with the metastatic disease. He has lung cancer with mets to bone and liver at this time and may have a recent travel so we will keep vancomycin and Maxipime on and discontinue the other ones. We will follow. Apple Rasmussen MD
[2018-06-14] MEDS: Oxycodone/Acetaminophen 5/325 mg Tab PO SCH ×4 (06:10→18:34)
[2018-06-14] MEDS: MethylPREDNISolone 40 mg Vial IVP SCH ×2 (06:11→22:38)
[2018-06-14] MEDS: Potassium Chloride 20 mEq ER Tab PO SCH (08:23)
[2018-06-14] MEDS: Enoxaparin 40 mg Syringe SC SCH (10:40)
[2018-06-14] MEDS: Pantoprazole 40 mg EC Tab PO SCH (10:46)
[2018-06-14] MEDS: Simethicone 80 mg Chewtab PO SCH (10:47)
--- NOTE | 2018-06-14 16:23 | CP.PCM.PN ---
Subjective - Date & Time of Evaluation Date of Evaluation: 06/14/18 Time of Evaluation: 10:30 - Subjective Subjective: clinically same Objective - Vital Signs/Intake and Output Vital Signs (last 24 hours): Temp Pulse Resp BP Pulse Ox 98.1 F 121 H 18 175/87 H 100 06/14/18 07:25 06/14/18 08:14 06/14/18 07:25 06/14/18 07:25 06/14/18 07:25 Intake and Output: 06/14/18 06/14/18 06:59 18:59 Intake Total 460 Output Total 425 Balance 35 - Medications Medications: Current Medications Albuterol/Ipratropium (Duoneb 3 Mg/0.5 Mg (3 Ml) Ud) 3 ml INH RQ6 [facility] Last Admin: 06/14/18 14:13 Dose: Not Given Alprazolam (Xanax) 0.5 mg PO Q12 [facility] Last Admin: 06/14/18 10:45 Dose: Not Given Aspirin (Ecotrin) 81 mg PO DAILY [facility] Last Admin: 06/14/18 10:47 Dose: 81 mg Chlorpromazine (Thorazine) 25 mg PO QID [facility] Last Admin: 06/14/18 10:46 Dose: 25 mg Clopidogrel Bisulfate (Plavix) 75 mg PO DAILY [facility] Last Admin: 06/14/18 10:46 Dose: 75 mg Demeclocycline HCl (Declomycin) 150 mg PO BID [facility]; Protocol Last Admin: 06/14/18 10:45 Dose: 150 mg Enoxaparin Sodium (Lovenox) 40 mg SC DAILY [facility] Last Admin: 06/14/18 10:40 Dose: 40 mg Famotidine (Pepcid) 20 mg PO DAILY [facility] Last Admin: 06/14/18 10:47 Dose: 20 mg Fentanyl (Duragesic) 1 patch TD Q72H [facility] Last Admin: 06/11/18 18:04 Dose: 1 patch Cefepime HCl 1 gm/ Dextrose 50 mls @ 100 mls/hr IVPB Q8H [facility]; Protocol Last Admin: 06/14/18 10:37 Dose: 100 mls/hr Vancomycin/Sodium Chloride (Vancomycin 1 Gm/Ns 200 Ml) 1 gm in 200 mls @ 133 mls/hr IVPB Q24H [facility]; Protocol Stop: 06/16/18 20:01 Last Admin: 06/13/18 20:24 Dose: 133 mls/hr Sodium Chloride (Sodium Chloride 0.9%) 1,000 mls @ 60 mls/hr IV .[id number] [facility] Last Admin: 06/14/18 10:25 Dose: 60 mls/hr Methylprednisolone (Solu-Medrol) 40 mg IVP Q8 [facility] Last Admin: 06/14/18 06:11 Dose: 40 mg Metoclopramide HCl (Reglan) 5 mg PO DAILY [facility] Last Admin: 06/14/18 10:45 Dose: 5 mg Oxycodone/Acetaminophen (Percocet 5/325 Mg Tab) 1 tab PO Q6 [facility] Stop: 06/14/18 18:01 Last Admin: 06/14/18 12:00 Dose: Not Given Pantoprazole Sodium (Protonix Ec Tab) 40 mg PO DAILY [facility] Last Admin: 06/14/18 10:46 Dose: 40 mg Potassium Chloride (K-Dur 20 Meq Er Tab) 40 meq PO BRK [facility] Last Admin: 06/14/18 08:23 Dose: 40 meq Rosuvastatin Calcium (Crestor) 20 mg PO HS [facility] Last Admin: 06/13/18 22:44 Dose: Not Given Simethicone (Mylicon Chew Tab) 80 mg PO DAILY [facility] Last Admin: 06/14/18 10:47 Dose: 80 mg - Labs Labs: 06/13/18 13:48 06/13/18 13:48 PT 14.1 SECONDS (9.7-12.2) H 06/11/18 10:13 INR 1.3 06/11/18 10:13 APTT 29 SECONDS (21-34) 06/11/18 10:13 - Constitutional Appears: Well - Head Exam Head Exam: ATRAUMATIC, NORMAL INSPECTION, NORMOCEPHALIC - Eye Exam Eye Exam: EOMI, Normal appearance, PERRL Pupil Exam: NORMAL ACCOMODATION, PERRL - ENT Exam ENT Exam: Mucous Membranes Moist, Normal Exam - Neck Exam Neck Exam: Full ROM, Normal Inspection. absent: Lymphadenopathy - Respiratory Exam Respiratory Exam: Decreased Breath Sounds - Cardiovascular Exam Cardiovascular Exam: REGULAR RHYTHM, +S1, +S2 - GI/Abdominal Exam GI & Abdominal Exam: Soft, Diminished Bowel Sounds - Rectal Exam Rectal Exam: Deferred
--- NOTE | 2018-06-14 17:32 | CP.PCM.PN ---
Subjective - Date & Time of Evaluation Date of Evaluation: 06/14/18 Time of Evaluation: 15:20 - Subjective Subjective: dictated Objective - Vital Signs/Intake and Output Vital Signs (last 24 hours): Temp Pulse Resp BP Pulse Ox 97.2 F L 120 H 20 122/68 96 06/14/18 17:13 06/14/18 17:13 06/14/18 17:13 06/14/18 17:13 06/14/18 17:13 Intake and Output: 06/14/18 06/14/18 06:59 18:59 Intake Total 460 Output Total 425 Balance 35 - Medications Medications: Current Medications Albuterol/Ipratropium (Duoneb 3 Mg/0.5 Mg (3 Ml) Ud) 3 ml INH RQ6 [facility] Last Admin: 06/14/18 14:13 Dose: Not Given Alprazolam (Xanax) 0.5 mg PO Q12 [facility] Last Admin: 06/14/18 10:45 Dose: Not Given Aspirin (Ecotrin) 81 mg PO DAILY [facility] Last Admin: 06/14/18 10:47 Dose: 81 mg Chlorpromazine (Thorazine) 25 mg PO QID [facility] Last Admin: 06/14/18 10:46 Dose: 25 mg Clopidogrel Bisulfate (Plavix) 75 mg PO DAILY [facility] Last Admin: 06/14/18 10:46 Dose: 75 mg Demeclocycline HCl (Declomycin) 150 mg PO BID [facility]; Protocol Last Admin: 06/14/18 10:45 Dose: 150 mg Enoxaparin Sodium (Lovenox) 40 mg SC DAILY [facility] Last Admin: 06/14/18 10:40 Dose: 40 mg Famotidine (Pepcid) 20 mg PO DAILY [facility] Last Admin: 06/14/18 10:47 Dose: 20 mg Fentanyl (Duragesic) 1 patch TD Q72H [facility] Last Admin: 06/11/18 18:04 Dose: 1 patch Cefepime HCl 1 gm/ Dextrose 50 mls @ 100 mls/hr IVPB Q8H [facility]; Protocol Last Admin: 06/14/18 10:37 Dose: 100 mls/hr Vancomycin/Sodium Chloride (Vancomycin 1 Gm/Ns 200 Ml) 1 gm in 200 mls @ 133 mls/hr IVPB Q24H [facility]; Protocol Stop: 06/16/18 20:01 Last Admin: 06/13/18 20:24 Dose: 133 mls/hr Methylprednisolone (Solu-Medrol) 40 mg IVP Q8 [facility] Last Admin: 06/14/18 06:11 Dose: 40 mg Metoclopramide HCl (Reglan) 5 mg PO DAILY [facility] Last Admin: 06/14/18 10:45 Dose: 5 mg Oxycodone/Acetaminophen (Percocet 5/325 Mg Tab) 1 tab PO Q6 [facility] Stop: 06/14/18 18:01 Last Admin: 06/14/18 12:00 Dose: Not Given Pantoprazole Sodium (Protonix Ec Tab) 40 mg PO DAILY [facility] Last Admin: 06/14/18 10:46 Dose: 40 mg Potassium Chloride (K-Dur 20 Meq Er Tab) 40 meq PO BRK [facility] Last Admin: 06/14/18 08:23 Dose: 40 meq Rosuvastatin Calcium (Crestor) 20 mg PO HS [facility] Last Admin: 06/13/18 22:44 Dose: Not Given Simethicone (Mylicon Chew Tab) 80 mg PO DAILY [facility] Last Admin: 06/14/18 10:47 Dose: 80 mg - Labs Labs: 06/13/18 13:48 06/13/18 13:48 PT 14.1 SECONDS (9.7-12.2) H 06/11/18 10:13 INR 1.3 06/11/18 10:13 APTT 29 SECONDS (21-34) 06/11/18 10:13
--- NOTE | 2018-06-14 18:24 | CP.PCM.PN ---
Subjective - Date & Time of Evaluation Date of Evaluation: 06/14/18 Time of Evaluation: 18:24 Objective - Vital Signs/Intake and Output Vital Signs (last 24 hours): Temp Pulse Resp BP Pulse Ox 97.2 F L 120 H 20 122/68 96 06/14/18 17:13 06/14/18 17:13 06/14/18 17:13 06/14/18 17:13 06/14/18 17:13 Intake and Output: 06/14/18 06/14/18 06:59 18:59 Intake Total 460 Output Total 425 Balance 35 - Medications Medications: Current Medications Albuterol/Ipratropium (Duoneb 3 Mg/0.5 Mg (3 Ml) Ud) 3 ml INH RQ6 [facility] Last Admin: 06/14/18 14:13 Dose: Not Given Alprazolam (Xanax) 0.5 mg PO Q12 [facility] Last Admin: 06/14/18 10:45 Dose: Not Given Aspirin (Ecotrin) 81 mg PO DAILY [facility] Last Admin: 06/14/18 10:47 Dose: 81 mg Chlorpromazine (Thorazine) 25 mg PO QID [facility] Last Admin: 06/14/18 10:46 Dose: 25 mg Clopidogrel Bisulfate (Plavix) 75 mg PO DAILY [facility] Last Admin: 06/14/18 10:46 Dose: 75 mg Demeclocycline HCl (Declomycin) 150 mg PO BID [facility]; Protocol Last Admin: 06/14/18 10:45 Dose: 150 mg Enoxaparin Sodium (Lovenox) 40 mg SC DAILY [facility] Last Admin: 06/14/18 10:40 Dose: 40 mg Famotidine (Pepcid) 20 mg PO DAILY [facility] Last Admin: 06/14/18 10:47 Dose: 20 mg Fentanyl (Duragesic) 1 patch TD Q72H [facility] Last Admin: 06/11/18 18:04 Dose: 1 patch Cefepime HCl 1 gm/ Dextrose 50 mls @ 100 mls/hr IVPB Q8H [facility]; Protocol Last Admin: 06/14/18 10:37 Dose: 100 mls/hr Vancomycin/Sodium Chloride (Vancomycin 1 Gm/Ns 200 Ml) 1 gm in 200 mls @ 133 mls/hr IVPB Q24H [facility]; Protocol Stop: 06/16/18 20:01 Last Admin: 06/13/18 20:24 Dose: 133 mls/hr Methylprednisolone (Solu-Medrol) 40 mg IVP Q8 [facility] Last Admin: 06/14/18 06:11 Dose: 40 mg Metoclopramide HCl (Reglan) 5 mg PO DAILY [facility] Last Admin: 06/14/18 10:45 Dose: 5 mg Pantoprazole Sodium (Protonix Ec Tab) 40 mg PO DAILY [facility] Last Admin: 06/14/18 10:46 Dose: 40 mg Potassium Chloride (K-Dur 20 Meq Er Tab) 40 meq PO BRK [facility] Last Admin: 06/14/18 08:23 Dose: 40 meq Rosuvastatin Calcium (Crestor) 20 mg PO HS [facility] Last Admin: 06/13/18 22:44 Dose: Not Given Simethicone (Mylicon Chew Tab) 80 mg PO DAILY [facility] Last Admin: 06/14/18 10:47 Dose: 80 mg - Labs Labs: 06/13/18 13:48 06/13/18 13:48 PT 14.1 SECONDS (9.7-12.2) H 06/11/18 10:13 INR 1.3 06/11/18 10:13 APTT 29 SECONDS (21-34) 06/11/18 10:13
[2018-06-14] MEDS: Vancomycin 1 gm/NS 200 ml 1 GM/200 ML BAG IVPB SCH (19:48)
--- NOTE | 2018-06-14 21:12 | PN ---
DATE: 06/14/2018 SUBJECTIVE: The patient remains sleepy. The nurse paperhanger assistant told me that he has been drinking, not eating much, but family is bringing food from home. OBJECTIVE: VITAL SIGNS: T-max is 97.2, heart rate of 120, blood pressure 122/68, respirations are 20. He remains with icterus. NECK: Supple. LUNGS: Clear. Decreased breath sounds. HEART: S1, S2 regular. ABDOMEN: Soft, nontender. No guarding, no rigidity present. EXTREMITIES: Have no edema. Labs are noted. White count is 11.9, hemoglobin 9.8, hematocrit 28.8, platelet count is 137. Chemistry shows BUN is 16, creatinine 0.7, total bilirubin is high and it is increasing. He has lung mass and liver mets from the lung cancer, and his sodium is 132. He has SIADH also, so we will take away the fluids, and we will leave him on vancomycin and Zosyn at this time, and we will follow. Actually, he is on vancomycin and cefepime. We will continue both of them, and he remains on steroids 40 every 8 hours for his lungs and he is on demeclocycline for his SIADH. Prognosis remains guarded as he does have extensive tumor, and we will follow. Apple Rasmussen MD
[2018-06-15] MEDS: Sodium Chloride 0.9% 1,000 ML IV SCH ×2 (00:09→20:34)
[2018-06-15] MEDS: Albuterol-Ipratrop 3 mg / 0.5 (3 ml) UD INH SCH ×4 (01:13→19:29)
[2018-06-15] MEDS: MethylPREDNISolone 40 mg Vial IVP SCH ×3 (05:42→23:00)
[2018-06-15 07:22] LABS: HEMOGLOBIN 10.2 g/dL (12.0-18.0); MEAN CELL VOLUME 90.2 fL (80.0-94.0); MEAN CORPUSCULAR HEMOGLOBIN 30.5 pg (27.0-31.0); MEAN CORPUSCULAR HGB CONC 33.9 g/dL (33.0-37.0); MEAN PLATELET VOLUME 8.8 fL (7.2-11.7); RBC 3.34 Mil/uL (4.40-5.90); RED CELL DISTRIBUTION WIDTH 17.1 % (11.5-14.5); WHITE BLOOD COUNT 11.5 K/uL (4.8-10.8)
[2018-06-15 07:40] LABS: BLOOD UREA NITROGEN 23 mg/dL (9-20); CALCIUM 9.8 mg/dl (8.6-10.4); GFR NON-AFRICAN AMERICAN > 60
[2018-06-15] MEDS: Potassium Chloride 20 mEq ER Tab PO SCH (09:10)
[2018-06-15] MEDS: Pantoprazole 40 mg EC Tab PO SCH (10:45)
[2018-06-15] MEDS: Simethicone 80 mg Chewtab PO SCH (10:45)
--- NOTE | 2018-06-15 10:46 | CP.PCM.PN ---
Subjective - Date & Time of Evaluation Date of Evaluation: 06/15/18 Time of Evaluation: 11:15 - Subjective Subjective: clinically same Objective - Vital Signs/Intake and Output Vital Signs (last 24 hours): Temp Pulse Resp BP Pulse Ox 98.2 F 122 H 18 163/76 H 96 06/15/18 07:20 06/15/18 08:11 06/15/18 07:20 06/15/18 07:20 06/15/18 07:20 Intake and Output: 06/15/18 06/15/18 06:59 18:59 Intake Total 300 Output Total 1250 Balance -950 - Medications Medications: Current Medications Albuterol/Ipratropium (Duoneb 3 Mg/0.5 Mg (3 Ml) Ud) 3 ml INH RQ6 [facility] Last Admin: 06/15/18 08:45 Dose: 3 ml Alprazolam (Xanax) 0.5 mg PO Q12 [facility] Last Admin: 06/14/18 23:06 Dose: Not Given Aspirin (Ecotrin) 81 mg PO DAILY [facility] Last Admin: 06/14/18 10:47 Dose: 81 mg Chlorpromazine (Thorazine) 25 mg PO QID [facility] Last Admin: 06/14/18 23:05 Dose: Not Given Clopidogrel Bisulfate (Plavix) 75 mg PO DAILY [facility] Last Admin: 06/14/18 10:46 Dose: 75 mg Demeclocycline HCl (Declomycin) 150 mg PO BID [facility]; Protocol Last Admin: 06/14/18 18:36 Dose: Not Given Enoxaparin Sodium (Lovenox) 40 mg SC DAILY [facility] Last Admin: 06/14/18 10:40 Dose: 40 mg Famotidine (Pepcid) 20 mg PO DAILY [facility] Last Admin: 06/14/18 10:47 Dose: 20 mg Fentanyl (Duragesic) 1 patch TD Q72H [facility] Last Admin: 06/14/18 18:37 Dose: 1 patch Cefepime HCl 1 gm/ Dextrose 50 mls @ 100 mls/hr IVPB Q8H [facility]; Protocol Last Admin: 06/15/18 02:58 Dose: 100 mls/hr Vancomycin/Sodium Chloride (Vancomycin 1 Gm/Ns 200 Ml) 1 gm in 200 mls @ 133 mls/hr IVPB Q24H [facility]; Protocol Stop: 09/29/18 20:01 Last Admin: 06/14/18 19:48 Dose: 133 mls/hr Sodium Chloride (Sodium Chloride 0.9%) 1,000 mls @ 50 mls/hr IV .Q20H [facility] Last Admin: 06/15/18 00:09 Dose: 50 mls/hr Methylprednisolone (Solu-Medrol) 40 mg IVP Q8 [facility] Last Admin: 06/15/18 05:42 Dose: 40 mg Metoclopramide HCl (Reglan) 5 mg PO DAILY [facility] Last Admin: 06/14/18 10:45 Dose: 5 mg Pantoprazole Sodium (Protonix Ec Tab) 40 mg PO DAILY [facility] Last Admin: 06/14/18 10:46 Dose: 40 mg Potassium Chloride (K-Dur 20 Meq Er Tab) 40 meq PO BRK [facility] Last Admin: 06/15/18 09:10 Dose: Not Given Rosuvastatin Calcium (Crestor) 20 mg PO HS [facility] Last Admin: 06/14/18 23:04 Dose: Not Given Simethicone (Mylicon Chew Tab) 80 mg PO DAILY [facility] Last Admin: 06/14/18 10:47 Dose: 80 mg - Labs Labs: 06/15/18 07:02 06/15/18 07:02 PT 14.1 SECONDS (9.7-12.2) H 06/11/18 10:13 INR 1.3 06/11/18 10:13 APTT 29 SECONDS (21-34) 06/11/18 10:13 - Constitutional Appears: Well - Head Exam Head Exam: ATRAUMATIC, NORMAL INSPECTION, NORMOCEPHALIC - Eye Exam Eye Exam: EOMI, Normal appearance, PERRL Pupil Exam: NORMAL ACCOMODATION, PERRL - ENT Exam ENT Exam: Mucous Membranes Moist, Normal Exam - Neck Exam Neck Exam: Full ROM, Normal Inspection. absent: Lymphadenopathy - Respiratory Exam Respiratory Exam: Decreased Breath Sounds - Cardiovascular Exam Cardiovascular Exam: REGULAR RHYTHM, +S1, +S2 - GI/Abdominal Exam GI & Abdominal Exam: Soft, Diminished Bowel Sounds - Rectal Exam Rectal Exam: Deferred
[2018-06-15] MEDS: Enoxaparin 40 mg Syringe SC SCH (11:02)
--- NOTE | 2018-06-15 12:56 | CP.PCM.PN ---
Subjective - Date & Time of Evaluation Date of Evaluation: 06/15/18 Time of Evaluation: 10:00 - Subjective Subjective: Patient remains non verbal. two daughter and son at bed side. Patient makes eye contacts only. Skin is jaundiced, even more than yesterday. ALT and AST are elevated. patient swallow when fed but only fluids. patient is unable to chew t he food. VF on for hydration. BP 163/76, HR 122, afebrile Per Doctor Kathia's notes, patient is not a candidate for further chemo and only supportive care was suggested. Objective - Vital Signs/Intake and Output Vital Signs (last 24 hours): Temp Pulse Resp BP Pulse Ox 98.2 F 122 H 18 163/76 H 96 06/15/18 07:20 06/15/18 08:11 06/15/18 07:20 06/15/18 07:20 06/15/18 07:20 Intake and Output: 06/15/18 06/15/18 06:59 18:59 Intake Total 300 Output Total 1250 Balance -950 - Medications Medications: Current Medications Albuterol/Ipratropium (Duoneb 3 Mg/0.5 Mg (3 Ml) Ud) 3 ml INH RQ6 [facility] Last Admin: 06/15/18 08:45 Dose: 3 ml Alprazolam (Xanax) 0.5 mg PO Q12 [facility] Last Admin: 06/15/18 10:47 Dose: Not Given Aspirin (Ecotrin) 81 mg PO DAILY [facility] Last Admin: 06/15/18 10:45 Dose: Not Given Chlorpromazine (Thorazine) 25 mg PO QID [facility] Last Admin: 06/15/18 10:46 Dose: Not Given Clopidogrel Bisulfate (Plavix) 75 mg PO DAILY [facility] Last Admin: 06/15/18 10:45 Dose: Not Given Demeclocycline HCl (Declomycin) 150 mg PO BID [facility]; Protocol Last Admin: 06/15/18 10:44 Dose: Not Given Enoxaparin Sodium (Lovenox) 40 mg SC DAILY [facility] Last Admin: 06/15/18 11:02 Dose: 40 mg Famotidine (Pepcid) 20 mg PO DAILY [facility] Last Admin: 06/15/18 10:45 Dose: Not Given Fentanyl (Duragesic) 1 patch TD Q72H [facility] Last Admin: 06/14/18 18:37 Dose: 1 patch Cefepime HCl 1 gm/ Dextrose 50 mls @ 100 mls/hr IVPB Q8H [facility]; Protocol Last Admin: 06/15/18 11:02 Dose: 100 mls/hr Vancomycin/Sodium Chloride (Vancomycin 1 Gm/Ns 200 Ml) 1 gm in 200 mls @ 133 mls/hr IVPB Q24H [facility]; Protocol Stop: 06/16/18 20:01 Last Admin: 06/14/18 19:48 Dose: 133 mls/hr Sodium Chloride (Sodium Chloride 0.9%) 1,000 mls @ 50 mls/hr IV .Q20H [facility] Last Admin: 06/15/18 00:09 Dose: 50 mls/hr Methylprednisolone (Solu-Medrol) 40 mg IVP Q8 [facility] Last Admin: 06/15/18 05:42 Dose: 40 mg Metoclopramide HCl (Reglan) 5 mg PO DAILY [facility] Last Admin: 06/15/18 10:46 Dose: Not Given Pantoprazole Sodium (Protonix Ec Tab) 40 mg PO DAILY [facility] Last Admin: 06/15/18 10:45 Dose: Not Given Potassium Chloride (K-Dur 20 Meq Er Tab) 40 meq PO BRK [facility] Last Admin: 06/15/18 09:10 Dose: Not Given Rosuvastatin Calcium (Crestor) 20 mg PO HS [facility] Last Admin: 06/14/18 23:04 Dose: Not Given Simethicone (Mylicon Chew Tab) 80 mg PO DAILY [facility] Last Admin: 06/15/18 10:45 Dose: Not Given - Labs Labs: 06/15/18 07:02 06/15/18 07:02 PT 14.1 SECONDS (9.7-12.2) H 06/11/18 10:13 INR 1.3 06/11/18 10:13 APTT 29 SECONDS (21-34) 06/11/18 10:13 - Constitutional Appears: Chronically Ill - Head Exam Head Exam: ATRAUMATIC, NORMAL INSPECTION, NORMOCEPHALIC - Eye Exam Eye Exam: EOMI, Normal appearance, PERRL Pupil Exam: NORMAL ACCOMODATION, PERRL - ENT Exam ENT Exam: Mucous Membranes Moist, Normal Exam - Neck Exam Neck Exam: Normal Inspection - Respiratory Exam Respiratory Exam: Clear to Ausculation Bilateral, NORMAL BREATHING PATTERN - Cardiovascular Exam Cardiovascular Exam: Tachycardia - GI/Abdominal Exam GI & Abdominal Exam: Soft, Normal Bowel Sounds - Rectal Exam Rectal Exam: Deferred - Exam Exam: NORMAL INSPECTION - Extremities Exam Extremities Exam: Normal Capillary Refill, Normal Inspection - Back Exam Back Exam: NORMAL INSPECTION - Neurological Exam Neurological Exam: Alert, Altered Neuro motor strength exam: Left Upper Extremity: 2, Right Upper Extremity: 2, Left Lower Extremity: 2, Right Lower Extremity: 2 - Psychiatric Exam Psychiatric exam: Flat Affect - Skin Additional comments: jaundice Assessment and Plan - Assessment and Plan (Free Text) Assessment: Discussed patient's poor performance and most likely poor prognosis with two daughters and son at bed side. I shared with them Doctor Bae's suggestion that no further chemo Tx was appropriate for this patient. Family expressed di sbelief and hope that patient would recover. They asked to talk again to Doctor Bae and to hear opinion from Doctor Debo Mccartney. I spoke to Doctor Bae over the phone who was to meet with family again today. I also texted Doctor Debo Mccartney with info on todays family meeting. Impression * Chronically ill male with metastatic disease, mets to brain, liver and lung * AMS * Aphasia * Unable to chew food * No further chemo Tx suggested from Doctor Bae * Family is unable to comprehend acuity of condition and is still hoping for recovery Suggestion * Would consider swallow evaluation * NPO until than * IVF for hydration * Comfort care would be the most appropriate level of care for this patient. It is difficult to me to imagine this patient intubated and on full life support at these last days of his life * Patient should be made DNR/DNI * PMD to help family understand the severity of condition and poor prognosis Advance care planing 35 min
--- NOTE | 2018-06-15 19:16 | CP.PCM.PN ---
Subjective - Date & Time of Evaluation Date of Evaluation: 06/15/18 Time of Evaluation: 11:15 - Subjective Subjective: dictated Objective - Vital Signs/Intake and Output Vital Signs (last 24 hours): Temp Pulse Resp BP Pulse Ox 97.4 F L 117 H 20 142/82 98 06/15/18 15:55 06/15/18 15:55 06/15/18 15:55 06/15/18 15:55 06/15/18 15:55 Intake and Output: 06/15/18 06/16/18 18:59 06:59 Intake Total 350 Output Total 400 Balance -50 - Medications Medications: Current Medications Albuterol/Ipratropium (Duoneb 3 Mg/0.5 Mg (3 Ml) Ud) 3 ml INH RQ6 [facility] Last Admin: 06/15/18 08:45 Dose: 3 ml Alprazolam (Xanax) 0.5 mg PO Q12 [facility] Last Admin: 06/15/18 10:47 Dose: Not Given Aspirin (Ecotrin) 81 mg PO DAILY [facility] Last Admin: 06/15/18 10:45 Dose: Not Given Chlorpromazine (Thorazine) 25 mg PO QID [facility] Last Admin: 06/15/18 17:33 Dose: Not Given Clopidogrel Bisulfate (Plavix) 75 mg PO DAILY [facility] Last Admin: 06/15/18 10:45 Dose: Not Given Demeclocycline HCl (Declomycin) 150 mg PO BID [facility]; Protocol Last Admin: 06/15/18 10:44 Dose: Not Given Enoxaparin Sodium (Lovenox) 40 mg SC DAILY [facility] Last Admin: 06/15/18 11:02 Dose: 40 mg Famotidine (Pepcid) 20 mg PO DAILY [facility] Last Admin: 06/15/18 10:45 Dose: Not Given Fentanyl (Duragesic) 1 patch TD Q72H [facility] Last Admin: 06/14/18 18:37 Dose: 1 patch Cefepime HCl 1 gm/ Dextrose 50 mls @ 100 mls/hr IVPB Q8H [facility]; Protocol Last Admin: 06/15/18 11:02 Dose: 100 mls/hr Vancomycin/Sodium Chloride (Vancomycin 1 Gm/Ns 200 Ml) 1 gm in 200 mls @ 133 mls/hr IVPB Q24H [facility]; Protocol Stop: 06/16/18 20:01 Last Admin: 06/14/18 19:48 Dose: 133 mls/hr Sodium Chloride (Sodium Chloride 0.9%) 1,000 mls @ 50 mls/hr IV .Q20H [facility] Last Admin: 06/15/18 00:09 Dose: 50 mls/hr Methylprednisolone (Solu-Medrol) 40 mg IVP Q8 [facility] Last Admin: 06/15/18 14:02 Dose: 40 mg Metoclopramide HCl (Reglan) 5 mg PO DAILY [facility] Last Admin: 06/15/18 10:46 Dose: Not Given Pantoprazole Sodium (Protonix Ec Tab) 40 mg PO DAILY [facility] Last Admin: 06/15/18 10:45 Dose: Not Given Potassium Chloride (K-Dur 20 Meq Er Tab) 40 meq PO BRK [facility] Last Admin: 06/15/18 09:10 Dose: Not Given Rosuvastatin Calcium (Crestor) 20 mg PO HS [facility] Last Admin: 06/14/18 23:04 Dose: Not Given Simethicone (Mylicon Chew Tab) 80 mg PO DAILY [facility] Last Admin: 06/15/18 10:45 Dose: Not Given - Labs Labs: 06/15/18 07:02 06/15/18 07:02 PT 14.1 SECONDS (9.7-12.2) H 06/11/18 10:13 INR 1.3 06/11/18 10:13 APTT 29 SECONDS (21-34) 06/11/18 10:13
[2018-06-15] MEDS: Vancomycin 1 gm/NS 200 ml 1 GM/200 ML BAG IVPB SCH (20:45)
--- NOTE | 2018-06-15 21:39 | PN ---
DATE: 06/15/2018 SUBJECTIVE: The patient was seen today. He was awake, not verbalizing much, but it seems that he was comprehending. The patient has two daughters and son, and the patient remains jaundiced. OBJECTIVE: LUNGS: Clear. HEART: S1, S2 regular. ABDOMEN: Soft, nontender. No guarding, no rigidity present. He is developing ankle edema at this time. He remains on IV antibiotics. He is on vancomycin, and he is on Solu-Medrol at this time and remains ill and remains jaundiced, and patient is on IV antibiotics, and the patient's family, they seem to be not understanding the seriousness of the illness, and they think the father is going is to get better and be well. His sodium is 134 today, so his hyponatremia is better. His white count is 11.5, but he is on steroids and he is breathing better, and we will wait for them to be tapered, and we will continue antibiotics for now till the family decides about further management. Apple Rasmussen MD
--- NOTE | 2018-06-15 22:43 | CP.PCM.PN ---
Subjective - Date & Time of Evaluation Date of Evaluation: 06/14/18 Time of Evaluation: 12:00 - Subjective Subjective: Eyes open but unresponsive Objective - Vital Signs/Intake and Output Vital Signs (last 24 hours): Temp Pulse Resp BP Pulse Ox 98.4 F 117 H 20 142/82 98 06/15/18 20:27 06/15/18 15:55 06/15/18 15:55 06/15/18 15:55 06/15/18 15:55 Intake and Output: 06/15/18 06/16/18 18:59 06:59 Intake Total 350 Output Total 400 550 Balance -50 -550 - Medications Medications: Current Medications Albuterol/Ipratropium (Duoneb 3 Mg/0.5 Mg (3 Ml) Ud) 3 ml INH RQ6 [facility] Last Admin: 06/15/18 19:29 Dose: 3 ml Alprazolam (Xanax) 0.5 mg PO Q12 [facility] Last Admin: 06/15/18 22:38 Dose: Not Given Aspirin (Ecotrin) 81 mg PO DAILY [facility] Last Admin: 06/15/18 10:45 Dose: Not Given Chlorpromazine (Thorazine) 25 mg PO QID [facility] Last Admin: 06/15/18 22:38 Dose: Not Given Clopidogrel Bisulfate (Plavix) 75 mg PO DAILY [facility] Last Admin: 06/15/18 10:45 Dose: Not Given Demeclocycline HCl (Declomycin) 150 mg PO BID [facility]; Protocol Last Admin: 06/15/18 18:00 Dose: Not Given Enoxaparin Sodium (Lovenox) 40 mg SC DAILY [facility] Last Admin: 06/15/18 11:02 Dose: 40 mg Famotidine (Pepcid) 20 mg PO DAILY [facility] Last Admin: 06/15/18 10:45 Dose: Not Given Fentanyl (Duragesic) 1 patch TD Q72H [facility] Last Admin: 06/14/18 18:37 Dose: 1 patch Cefepime HCl 1 gm/ Dextrose 50 mls @ 100 mls/hr IVPB Q8H [facility]; Protocol Last Admin: 06/15/18 19:45 Dose: 100 mls/hr Vancomycin/Sodium Chloride (Vancomycin 1 Gm/Ns 200 Ml) 1 gm in 200 mls @ 133 mls/hr IVPB Q24H [facility]; Protocol Stop: 06/16/18 20:01 Last Admin: 06/15/18 20:45 Dose: 133 mls/hr Sodium Chloride (Sodium Chloride 0.9%) 1,000 mls @ 50 mls/hr IV .Q20H [facility] Last Admin: 06/15/18 20:34 Dose: 50 mls/hr Methylprednisolone (Solu-Medrol) 40 mg IVP Q8 [facility] Last Admin: 06/15/18 14:02 Dose: 40 mg Metoclopramide HCl (Reglan) 5 mg PO DAILY [facility] Last Admin: 06/15/18 10:46 Dose: Not Given Pantoprazole Sodium (Protonix Ec Tab) 40 mg PO DAILY [facility] Last Admin: 06/15/18 10:45 Dose: Not Given Potassium Chloride (K-Dur 20 Meq Er Tab) 40 meq PO BRK [facility] Last Admin: 06/15/18 09:10 Dose: Not Given Rosuvastatin Calcium (Crestor) 20 mg PO HS [facility] Last Admin: 06/15/18 22:37 Dose: Not Given Simethicone (Mylicon Chew Tab) 80 mg PO DAILY [facility] Last Admin: 06/15/18 10:45 Dose: Not Given - Labs Labs: 06/15/18 07:02 06/15/18 07:02 PT 14.1 SECONDS (9.7-12.2) H 06/11/18 10:13 INR 1.3 06/11/18 10:13 APTT 29 SECONDS (21-34) 06/11/18 10:13 - Head Exam Head Exam: ATRAUMATIC - Eye Exam Eye Exam: Normal appearance - ENT Exam ENT Exam: Mucous Membranes Dry - Respiratory Exam Respiratory Exam: NORMAL BREATHING PATTERN - Cardiovascular Exam Cardiovascular Exam: +S1, +S2 - GI/Abdominal Exam GI & Abdominal Exam: Normal Bowel Sounds Assessment and Plan (1) Altered mental status Assessment & Plan: ? CVA CT head negative for acute change Status: Acute (2) Anemia Assessment & Plan: chronic disease from malignancy Status: Acute (3) Small cell lung cancer Assessment & Plan: stage IV AMS and rising bilirubin - poor prognosis and no longer will benefit from chemotherapy discussed with the patients daughter supportive care palliative care evaluation ?hospice Status: Acute
--- NOTE | 2018-06-15 22:45 | CP.PCM.PN ---
Subjective - Date & Time of Evaluation Date of Evaluation: 06/15/18 Time of Evaluation: 18:00 - Subjective Subjective: poor response daughter at bedside discussed code status and hospice want to discuss further with other siblings. Objective - Vital Signs/Intake and Output Vital Signs (last 24 hours): Temp Pulse Resp BP Pulse Ox 98.4 F 117 H 20 142/82 98 06/15/18 20:27 06/15/18 15:55 06/15/18 15:55 06/15/18 15:55 06/15/18 15:55 Intake and Output: 06/15/18 06/16/18 18:59 06:59 Intake Total 350 Output Total 400 550 Balance -50 -550 - Medications Medications: Current Medications Albuterol/Ipratropium (Duoneb 3 Mg/0.5 Mg (3 Ml) Ud) 3 ml INH RQ6 [facility] Last Admin: 06/15/18 19:29 Dose: 3 ml Alprazolam (Xanax) 0.5 mg PO Q12 [facility] Last Admin: 06/15/18 22:38 Dose: Not Given Aspirin (Ecotrin) 81 mg PO DAILY [facility] Last Admin: 06/15/18 10:45 Dose: Not Given Chlorpromazine (Thorazine) 25 mg PO QID [facility] Last Admin: 06/15/18 22:38 Dose: Not Given Clopidogrel Bisulfate (Plavix) 75 mg PO DAILY [facility] Last Admin: 06/15/18 10:45 Dose: Not Given Demeclocycline HCl (Declomycin) 150 mg PO BID [facility]; Protocol Last Admin: 06/15/18 18:00 Dose: Not Given Enoxaparin Sodium (Lovenox) 40 mg SC DAILY [facility] Last Admin: 06/15/18 11:02 Dose: 40 mg Famotidine (Pepcid) 20 mg PO DAILY [facility] Last Admin: 06/15/18 10:45 Dose: Not Given Fentanyl (Duragesic) 1 patch TD Q72H [facility] Last Admin: 06/14/18 18:37 Dose: 1 patch Cefepime HCl 1 gm/ Dextrose 50 mls @ 100 mls/hr IVPB Q8H [facility]; Protocol Last Admin: 06/15/18 19:45 Dose: 100 mls/hr Vancomycin/Sodium Chloride (Vancomycin 1 Gm/Ns 200 Ml) 1 gm in 200 mls @ 133 mls/hr IVPB Q24H [facility]; Protocol Stop: 06/16/18 20:01 Last Admin: 06/15/18 20:45 Dose: 133 mls/hr Sodium Chloride (Sodium Chloride 0.9%) 1,000 mls @ 50 mls/hr IV .Q20H [facility] Last Admin: 06/15/18 20:34 Dose: 50 mls/hr Methylprednisolone (Solu-Medrol) 40 mg IVP Q8 [facility] Last Admin: 06/15/18 14:02 Dose: 40 mg Metoclopramide HCl (Reglan) 5 mg PO DAILY [facility] Last Admin: 06/15/18 10:46 Dose: Not Given Pantoprazole Sodium (Protonix Ec Tab) 40 mg PO DAILY [facility] Last Admin: 06/15/18 10:45 Dose: Not Given Potassium Chloride (K-Dur 20 Meq Er Tab) 40 meq PO BRK [facility] Last Admin: 06/15/18 09:10 Dose: Not Given Rosuvastatin Calcium (Crestor) 20 mg PO HS [facility] Last Admin: 06/15/18 22:37 Dose: Not Given Simethicone (Mylicon Chew Tab) 80 mg PO DAILY [facility] Last Admin: 06/15/18 10:45 Dose: Not Given - Labs Labs: 06/15/18 07:02 06/15/18 07:02 PT 14.1 SECONDS (9.7-12.2) H 06/11/18 10:13 INR 1.3 06/11/18 10:13 APTT 29 SECONDS (21-34) 06/11/18 10:13 - Head Exam Head Exam: ATRAUMATIC - Eye Exam Eye Exam: Normal appearance - ENT Exam ENT Exam: Mucous Membranes Dry - Respiratory Exam Respiratory Exam: NORMAL BREATHING PATTERN - Cardiovascular Exam Cardiovascular Exam: +S1, +S2 - GI/Abdominal Exam GI & Abdominal Exam: Normal Bowel Sounds Assessment and Plan (1) Altered mental status Assessment & Plan: ? CVA CT head negative for acute change Status: Acute (2) Anemia Assessment & Plan: chronic disease from malignancy Status: Acute (3) Small cell lung cancer Assessment & Plan: stage IV AMS and rising bilirubin - poor prognosis and unlikely to benefit from further chemotherapy discussed with the patients daughter supportive care palliative care evaluation Status: Acute
[2018-06-16] MEDS: Albuterol-Ipratrop 3 mg / 0.5 (3 ml) UD INH SCH ×4 (02:01→19:36)
[2018-06-16] MEDS: MethylPREDNISolone 40 mg Vial IVP SCH ×6 (05:39→21:44)
[2018-06-16] MEDS: Potassium Chloride 20 mEq ER Tab PO SCH (08:47)
[2018-06-16] MEDS: Simethicone 80 mg Chewtab PO SCH (09:58)
[2018-06-16] MEDS: Pantoprazole 40 mg EC Tab PO SCH (09:58)
[2018-06-16] MEDS: Enoxaparin 40 mg Syringe SC SCH (10:27)
--- NOTE | 2018-06-16 10:38 | CP.PCM.PN ---
Subjective - Date & Time of Evaluation Date of Evaluation: 06/16/18 Time of Evaluation: 09:15 - Subjective Subjective: clinically same Objective - Vital Signs/Intake and Output Vital Signs (last 24 hours): Temp Pulse Resp BP Pulse Ox 98.1 F 111 H 18 154/79 H 99 06/16/18 07:00 06/16/18 08:39 06/16/18 07:00 06/16/18 07:00 06/16/18 07:00 Intake and Output: 06/16/18 06/16/18 06:59 18:59 Intake Total 750 Output Total 1450 Balance -700 - Medications Medications: Current Medications Albuterol/Ipratropium (Duoneb 3 Mg/0.5 Mg (3 Ml) Ud) 3 ml INH RQ6 [facility] Last Admin: 06/16/18 08:05 Dose: 3 ml Alprazolam (Xanax) 0.5 mg PO Q12 [facility] Last Admin: 06/16/18 09:58 Dose: Not Given Aspirin (Ecotrin) 81 mg PO DAILY [facility] Last Admin: 06/16/18 09:58 Dose: Not Given Chlorpromazine (Thorazine) 25 mg PO QID [facility] Last Admin: 06/16/18 09:58 Dose: Not Given Clopidogrel Bisulfate (Plavix) 75 mg PO DAILY [facility] Last Admin: 06/16/18 09:58 Dose: Not Given Demeclocycline HCl (Declomycin) 150 mg PO BID [facility]; Protocol Last Admin: 06/16/18 09:58 Dose: Not Given Enoxaparin Sodium (Lovenox) 40 mg SC DAILY [facility] Last Admin: 06/16/18 10:27 Dose: 40 mg Famotidine (Pepcid) 20 mg PO DAILY [facility] Last Admin: 06/16/18 09:58 Dose: Not Given Fentanyl (Duragesic) 1 patch TD Q72H [facility] Last Admin: 06/14/18 18:37 Dose: 1 patch Cefepime HCl 1 gm/ Dextrose 50 mls @ 100 mls/hr IVPB Q8H [facility]; Protocol Last Admin: 06/16/18 10:27 Dose: 100 mls/hr Vancomycin/Sodium Chloride (Vancomycin 1 Gm/Ns 200 Ml) 1 gm in 200 mls @ 133 mls/hr IVPB Q24H [facility]; Protocol Stop: 09/29/18 20:01 Last Admin: 06/15/18 20:45 Dose: 133 mls/hr Sodium Chloride (Sodium Chloride 0.9%) 1,000 mls @ 50 mls/hr IV .Q20H [facility] Last Admin: 06/15/18 20:34 Dose: 50 mls/hr Methylprednisolone (Solu-Medrol) 40 mg IVP Q8 [facility] Last Admin: 06/16/18 05:39 Dose: 40 mg Metoclopramide HCl (Reglan) 5 mg PO DAILY [facility] Last Admin: 06/16/18 09:58 Dose: Not Given Pantoprazole Sodium (Protonix Ec Tab) 40 mg PO DAILY [facility] Last Admin: 06/16/18 09:58 Dose: Not Given Potassium Chloride (K-Dur 20 Meq Er Tab) 40 meq PO BRK [facility] Last Admin: 06/16/18 08:47 Dose: Not Given Rosuvastatin Calcium (Crestor) 20 mg PO HS [facility] Last Admin: 06/15/18 22:37 Dose: Not Given Simethicone (Mylicon Chew Tab) 80 mg PO DAILY [facility] Last Admin: 06/16/18 09:58 Dose: Not Given - Labs Labs: 06/15/18 07:02 06/15/18 07:02 PT 14.1 SECONDS (9.7-12.2) H 06/11/18 10:13 INR 1.3 06/11/18 10:13 APTT 29 SECONDS (21-34) 06/11/18 10:13 - Constitutional Appears: Well - Head Exam Head Exam: ATRAUMATIC, NORMAL INSPECTION, NORMOCEPHALIC - Eye Exam Eye Exam: EOMI, Normal appearance, PERRL Pupil Exam: NORMAL ACCOMODATION, PERRL - ENT Exam ENT Exam: Mucous Membranes Moist, Normal Exam - Neck Exam Neck Exam: Full ROM, Normal Inspection. absent: Lymphadenopathy - Respiratory Exam Respiratory Exam: Decreased Breath Sounds - GI/Abdominal Exam GI & Abdominal Exam: Soft, Diminished Bowel Sounds - Rectal Exam Rectal Exam: Deferred
--- NOTE | 2018-06-16 18:04 | CP.PCM.PN ---
Subjective - Date & Time of Evaluation Date of Evaluation: 06/16/18 Time of Evaluation: 18:04 Objective - Vital Signs/Intake and Output Vital Signs (last 24 hours): Temp Pulse Resp BP Pulse Ox 99 F 114 H 20 157/87 H 96 06/16/18 15:00 06/16/18 15:00 06/16/18 15:00 06/16/18 15:00 06/16/18 15:00 Intake and Output: 06/16/18 06/16/18 06:59 18:59 Intake Total 750 420 Output Total 1450 300 Balance -700 120 - Medications Medications: Current Medications Albuterol/Ipratropium (Duoneb 3 Mg/0.5 Mg (3 Ml) Ud) 3 ml INH RQ6 [facility] Last Admin: 06/16/18 13:27 Dose: Not Given Alprazolam (Xanax) 0.5 mg PO Q12 [facility] Last Admin: 06/16/18 09:58 Dose: Not Given Aspirin (Ecotrin) 81 mg PO DAILY [facility] Last Admin: 06/16/18 09:58 Dose: Not Given Chlorpromazine (Thorazine) 25 mg PO QID [facility] Last Admin: 06/16/18 14:00 Dose: Not Given Clopidogrel Bisulfate (Plavix) 75 mg PO DAILY [facility] Last Admin: 06/16/18 09:58 Dose: Not Given Demeclocycline HCl (Declomycin) 150 mg PO BID [facility]; Protocol Last Admin: 06/16/18 09:58 Dose: Not Given Enoxaparin Sodium (Lovenox) 40 mg SC DAILY [facility] Last Admin: 06/16/18 10:27 Dose: 40 mg Famotidine (Pepcid) 20 mg PO DAILY [facility] Last Admin: 06/16/18 09:58 Dose: Not Given Fentanyl (Duragesic) 1 patch TD Q72H [facility] Last Admin: 06/14/18 18:37 Dose: 1 patch Cefepime HCl 1 gm/ Dextrose 50 mls @ 100 mls/hr IVPB Q8H [facility]; Protocol Last Admin: 06/16/18 10:27 Dose: 100 mls/hr Vancomycin/Sodium Chloride (Vancomycin 1 Gm/Ns 200 Ml) 1 gm in 200 mls @ 133 mls/hr IVPB Q24H [facility]; Protocol Stop: 06/16/18 20:01 Last Admin: 06/15/18 20:45 Dose: 133 mls/hr Sodium Chloride (Sodium Chloride 0.9%) 1,000 mls @ 50 mls/hr IV .Q20H [facility] Last Admin: 06/15/18 20:34 Dose: 50 mls/hr Methylprednisolone (Solu-Medrol) 40 mg IVP Q8 [facility] Last Admin: 06/16/18 14:36 Dose: 40 mg Metoclopramide HCl (Reglan) 5 mg PO DAILY [facility] Last Admin: 06/16/18 09:58 Dose: Not Given Pantoprazole Sodium (Protonix Ec Tab) 40 mg PO DAILY [facility] Last Admin: 06/16/18 09:58 Dose: Not Given Potassium Chloride (K-Dur 20 Meq Er Tab) 40 meq PO BRK [facility] Last Admin: 06/16/18 08:47 Dose: Not Given Rosuvastatin Calcium (Crestor) 20 mg PO HS [facility] Last Admin: 06/15/18 22:37 Dose: Not Given Simethicone (Mylicon Chew Tab) 80 mg PO DAILY [facility] Last Admin: 06/16/18 09:58 Dose: Not Given - Labs Labs: 06/15/18 07:02 06/15/18 07:02 PT 14.1 SECONDS (9.7-12.2) H 06/11/18 10:13 INR 1.3 06/11/18 10:13 APTT 29 SECONDS (21-34) 06/11/18 10:13
[2018-06-16] MEDS: Sodium Chloride 0.9% 1,000 ML IV SCH (18:44)
[2018-06-16] MEDS: Vancomycin 1 gm/NS 200 ml 1 GM/200 ML BAG IVPB SCH (19:31)
[2018-06-17] MEDS: Albuterol-Ipratrop 3 mg / 0.5 (3 ml) UD INH SCH ×4 (02:49→19:40)
[2018-06-17] MEDS: MethylPREDNISolone 40 mg Vial IVP SCH ×3 (05:17→22:01)
[2018-06-17] MEDS: Potassium Chloride 20 mEq ER Tab PO SCH (08:52)
--- NOTE | 2018-06-17 09:48 | CP.PCM.PN ---
Subjective - Date & Time of Evaluation Date of Evaluation: 06/17/18 Time of Evaluation: 09:48 Objective - Vital Signs/Intake and Output Vital Signs (last 24 hours): Temp Pulse Resp BP Pulse Ox 98.0 F 109 H 18 148/75 97 06/17/18 07:00 06/17/18 07:34 06/17/18 07:00 06/17/18 07:00 06/17/18 07:00 Intake and Output: 06/17/18 06/17/18 06:59 18:59 Intake Total 940 Output Total 600 Balance 340 - Medications Medications: Current Medications Albuterol/Ipratropium (Duoneb 3 Mg/0.5 Mg (3 Ml) Ud) 3 ml INH RQ6 [facility] Last Admin: 06/17/18 07:47 Dose: 3 ml Alprazolam (Xanax) 0.5 mg PO Q12 [facility] Last Admin: 06/16/18 21:44 Dose: Not Given Aspirin (Ecotrin) 81 mg PO DAILY [facility] Last Admin: 06/16/18 09:58 Dose: Not Given Chlorpromazine (Thorazine) 25 mg PO QID [facility] Last Admin: 06/16/18 21:44 Dose: Not Given Clopidogrel Bisulfate (Plavix) 75 mg PO DAILY [facility] Last Admin: 06/16/18 09:58 Dose: Not Given Enoxaparin Sodium (Lovenox) 40 mg SC DAILY [facility] Last Admin: 06/16/18 10:27 Dose: 40 mg Famotidine (Pepcid) 20 mg PO DAILY [facility] Last Admin: 06/16/18 09:58 Dose: Not Given Fentanyl (Duragesic) 1 patch TD Q72H [facility] Last Admin: 06/14/18 18:37 Dose: 1 patch Cefepime HCl 1 gm/ Dextrose 50 mls @ 100 mls/hr IVPB Q8H [facility]; Protocol Last Admin: 06/17/18 02:28 Dose: 100 mls/hr Sodium Chloride (Sodium Chloride 0.9%) 1,000 mls @ 50 mls/hr IV .Q20H [facility] Last Admin: 06/16/18 18:44 Dose: 50 mls/hr Methylprednisolone (Solu-Medrol) 40 mg IVP Q8 [facility] Last Admin: 06/17/18 05:17 Dose: 40 mg Metoclopramide HCl (Reglan) 5 mg PO DAILY [facility] Last Admin: 06/16/18 09:58 Dose: Not Given Pantoprazole Sodium (Protonix Ec Tab) 40 mg PO DAILY [facility] Last Admin: 06/16/18 09:58 Dose: Not Given Potassium Chloride (K-Dur 20 Meq Er Tab) 40 meq PO BRK [facility] Last Admin: 06/17/18 08:52 Dose: Not Given Rosuvastatin Calcium (Crestor) 20 mg PO HS [facility] Last Admin: 06/16/18 21:42 Dose: Not Given Simethicone (Mylicon Chew Tab) 80 mg PO DAILY [facility] Last Admin: 06/16/18 09:58 Dose: Not Given - Labs Labs: 06/15/18 07:02 06/15/18 07:02 PT 14.1 SECONDS (9.7-12.2) H 06/11/18 10:13 INR 1.3 06/11/18 10:13 APTT 29 SECONDS (21-34) 06/11/18 10:13
[2018-06-17] MEDS: Enoxaparin 40 mg Syringe SC SCH (10:24)
--- NOTE | 2018-06-17 10:40 | CP.PCM.CON ---
History of Present Illness - History of Present Illness History of Present Illness: I was asked to evaluate patient by Dr Mccartney. Patient is a 63 year old male with end stage stage 4 cancer who had an episode of NSVT. The patient's family states he became less communicative one week ago, and was admitted for further management. Patient has documented end stage cancer and the patient's family has had discussion regarding pallliative care. On telemetry there was a short run of NSVT. Patient remained asymptomatic. Review of Systems - Review of Systems Systems not reviewed;Unavailable: Altered Mental Status Past Patient History - Infectious Disease Hx of Infectious Diseases: None - Past Medical History & Family History Past Medical History?: Yes - Past Social History Smoking Status: Never Smoked - CARDIAC Hx Hypercholesterolemia: Yes Hx Hypertension: Yes - PULMONARY Hx Respiratory Disorders: Yes Hx Lung Cancer: Yes - NEUROLOGICAL Hx Neurological Disorder: No Hx Paralysis: No - HEENT Hx HEENT Problems: No - RENAL Hx Chronic Kidney Disease: No - ENDOCRINE/METABOLIC Hx Endocrine Disorders: No - HEMATOLOGICAL/ONCOLOGICAL Hx Anemia: Yes - INTEGUMENTARY Hx Dermatological Problems: Yes - MUSCULOSKELETAL/RHEUMATOLOGICAL Hx Arthritis: Yes (HX OF B/L HIP PAIN L>R) - GASTROINTESTINAL Hx Gastritis: Yes - GENITOURINARY/GYNECOLOGICAL Hx Genitourinary Disorders: No - PSYCHIATRIC Hx Anxiety: Yes Hx Substance Use: No - SURGICAL HISTORY Hx Coronary Artery Bypass Graft: Yes - ANESTHESIA Hx Anesthesia: Yes Hx Anesthesia Reactions: No Hx Malignant Hyperthermia: No Meds Allergies/Adverse Reactions: Allergies Allergy/AdvReac Type Severity Reaction Status Date / Time No Known Allergies Allergy Verified 06/11/18 09:31 - Medications Medications: Current Medications Albuterol/Ipratropium (Duoneb 3 Mg/0.5 Mg (3 Ml) Ud) 3 ml INH RQ6 [facility] Last Admin: 06/17/18 07:47 Dose: 3 ml Alprazolam (Xanax) 0.5 mg PO Q12 [facility] Last Admin: 06/16/18 21:44 Dose: Not Given Aspirin (Ecotrin) 81 mg PO DAILY [facility] Last Admin: 06/16/18 09:58 Dose: Not Given Chlorpromazine (Thorazine) 25 mg PO QID [facility] Last Admin: 06/16/18 21:44 Dose: Not Given Clopidogrel Bisulfate (Plavix) 75 mg PO DAILY [facility] Last Admin: 06/16/18 09:58 Dose: Not Given Enoxaparin Sodium (Lovenox) 40 mg SC DAILY [facility] Last Admin: 06/17/18 10:24 Dose: 40 mg Famotidine (Pepcid) 20 mg PO DAILY [facility] Last Admin: 06/16/18 09:58 Dose: Not Given Fentanyl (Duragesic) 1 patch TD Q72H [facility] Last Admin: 06/14/18 18:37 Dose: 1 patch Cefepime HCl 1 gm/ Dextrose 50 mls @ 100 mls/hr IVPB Q8H [facility]; Protocol Last Admin: 06/17/18 10:24 Dose: 100 mls/hr Sodium Chloride (Sodium Chloride 0.9%) 1,000 mls @ 50 mls/hr IV .Q20H [facility] Last Admin: 06/16/18 18:44 Dose: 50 mls/hr Methylprednisolone (Solu-Medrol) 40 mg IVP Q8 [facility] Last Admin: 06/17/18 05:17 Dose: 40 mg Metoclopramide HCl (Reglan) 5 mg PO DAILY [facility] Last Admin: 06/16/18 09:58 Dose: Not Given Metoprolol Succinate (Toprol Xl) 25 mg PO DAILY [facility] Pantoprazole Sodium (Protonix Ec Tab) 40 mg PO DAILY [facility] Last Admin: 06/16/18 09:58 Dose: Not Given Potassium Chloride (K-Dur 20 Meq Er Tab) 40 meq PO BRK [facility] Last Admin: 06/17/18 08:52 Dose: Not Given Rosuvastatin Calcium (Crestor) 20 mg PO HS [facility] Last Admin: 06/16/18 21:42 Dose: Not Given Simethicone (Mylicon Chew Tab) 80 mg PO DAILY [facility] Last Admin: 06/16/18 09:58 Dose: Not Given Physical Exam - Constitutional Appears: Chronically Ill - Head Exam Head Exam: NORMAL INSPECTION - Eye Exam Eye Exam: Scleral icterus - ENT Exam ENT Exam: Mucous Membranes Dry - Neck Exam Neck exam: Negative for: Lymphadenopathy - Respiratory Exam Respiratory Exam: Decreased Breath Sounds - Cardiovascular Exam Cardiovascular Exam: Tachycardia, REGULAR RHYTHM - GI/Abdominal Exam GI & Abdominal Exam: Normal Bowel Sounds - Rectal Exam Rectal Exam: Deferred - Extremities Exam Extremities exam: Negative for: pedal edema - Back Exam Back exam: NORMAL INSPECTION - Skin Skin Exam: Normal Color Results - Vital Signs Recent Vital Signs: Last Vital Signs Temp 98.0 F 06/17/18 07:00 Pulse 109 H 06/17/18 07:34 Resp 18 06/17/18 07:00 BP 148/75 06/17/18 07:00 Pulse Ox 97 06/17/18 07:00 - Labs Result Diagrams: 06/15/18 07:02 06/15/18 07:02 - EKG Data EKG Interpreted by: Myself EKG shows normal: Sinus rhythm Rate: Tachycardia Assessment & Plan (1) Non-sustained ventricular tachycardia Assessment and Plan: noted. hemodynamically stable. will add Toprol XL. given underlying cancer status, recommend conservative therapy. Status: Acute (2) Hypertension Assessment and Plan: add Toprol Status: Acute
[2018-06-17] MEDS ORDERED: Metoprolol Succinate 25 mg XL Tab PO SCH (10:45)
[2018-06-17] MEDS: Simethicone 80 mg Chewtab PO SCH (11:00)
[2018-06-17] MEDS: Pantoprazole 40 mg EC Tab PO SCH (11:00)
[2018-06-17] MEDS: Sodium Chloride 0.9% 1,000 ML IV SCH ×2 (12:33→18:28)
--- NOTE | 2018-06-17 16:24 | CP.PCM.PN ---
Subjective - Date & Time of Evaluation Date of Evaluation: 06/17/18 Time of Evaluation: 14:00 - Subjective Subjective: dictated Objective - Vital Signs/Intake and Output Vital Signs (last 24 hours): Temp Pulse Resp BP Pulse Ox 97.6 F 106 H 20 155/84 H 96 06/17/18 15:28 06/17/18 15:28 06/17/18 15:28 06/17/18 15:28 06/17/18 15:28 Intake and Output: 06/17/18 06/17/18 06:59 18:59 Intake Total 940 400 Output Total 600 250 Balance 340 150 - Medications Medications: Current Medications Albuterol/Ipratropium (Duoneb 3 Mg/0.5 Mg (3 Ml) Ud) 3 ml INH RQ6 [facility] Last Admin: 06/17/18 13:38 Dose: Not Given Alprazolam (Xanax) 0.5 mg PO Q12 [facility] Last Admin: 06/17/18 11:00 Dose: Not Given Aspirin (Ecotrin) 81 mg PO DAILY [facility] Last Admin: 06/17/18 11:00 Dose: Not Given Chlorpromazine (Thorazine) 25 mg PO QID [facility] Last Admin: 06/17/18 13:22 Dose: Not Given Clopidogrel Bisulfate (Plavix) 75 mg PO DAILY [facility] Last Admin: 06/17/18 11:00 Dose: Not Given Enoxaparin Sodium (Lovenox) 40 mg SC DAILY [facility] Last Admin: 06/17/18 10:24 Dose: 40 mg Famotidine (Pepcid) 20 mg PO DAILY [facility] Last Admin: 06/17/18 11:00 Dose: Not Given Fentanyl (Duragesic) 1 patch TD Q72H [facility] Last Admin: 06/14/18 18:37 Dose: 1 patch Cefepime HCl 1 gm/ Dextrose 50 mls @ 100 mls/hr IVPB Q8H [facility]; Protocol Last Admin: 06/17/18 10:24 Dose: 100 mls/hr Sodium Chloride (Sodium Chloride 0.9%) 1,000 mls @ 50 mls/hr IV .Q20H [facility] Last Admin: 06/17/18 12:33 Dose: Not Given Methylprednisolone (Solu-Medrol) 40 mg IVP Q8 [facility] Last Admin: 06/17/18 13:22 Dose: 40 mg Metoclopramide HCl (Reglan) 5 mg PO DAILY [facility] Last Admin: 06/17/18 11:00 Dose: Not Given Pantoprazole Sodium (Protonix Ec Tab) 40 mg PO DAILY [facility] Last Admin: 06/17/18 11:00 Dose: Not Given Potassium Chloride (K-Dur 20 Meq Er Tab) 40 meq PO BRK [facility] Last Admin: 06/17/18 08:52 Dose: Not Given Rosuvastatin Calcium (Crestor) 20 mg PO HS [facility] Last Admin: 06/16/18 21:42 Dose: Not Given Simethicone (Mylicon Chew Tab) 80 mg PO DAILY [facility] Last Admin: 06/17/18 11:00 Dose: Not Given - Labs Labs: 06/15/18 07:02 06/15/18 07:02 PT 14.1 SECONDS (9.7-12.2) H 06/11/18 10:13 INR 1.3 06/11/18 10:13 APTT 29 SECONDS (21-34) 06/11/18 10:13
--- NOTE | 2018-06-18 00:01 | PN ---
DATE: 06/17/2018 SUBJECTIVE: The patient remains awake, but not able to communicate much, because of his voice. PHYSICAL EXAMINATION: VITAL SIGNS: T-max is 97.6, heart rate of 106, blood pressure 155/84, respirations are 20. ASSESSMENT AND PLAN: The daughter wanted the [place] catheter to be removed and to have a diaper as the patient was complaining of some discomfort. The nurse was back and forth, multiple issues. 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 I am continuing antibiotics at this time, but they were not given. He is on cefepime and oral drugs are on hold as he is not able to take them. He remains on IV antibiotics at this time, but if family agrees, he can probably go hospice. We are waiting for their decision at this time and they said they want to discuss with Dr. Nicole Mccartney and Dr. Nicole Mccartney is being covered at this time. Apple Rasmussen MD
[2018-06-18] MEDS: Albuterol-Ipratrop 3 mg / 0.5 (3 ml) UD INH SCH ×4 (02:30→19:56)
[2018-06-18] MEDS: MethylPREDNISolone 40 mg Vial IVP SCH ×3 (05:26→21:43)
[2018-06-18] MEDS: Simethicone 80 mg Chewtab PO SCH (11:10)
[2018-06-18] MEDS: Pantoprazole 40 mg EC Tab PO SCH (11:10)
[2018-06-18] MEDS: Enoxaparin 40 mg Syringe SC SCH (11:10)
[2018-06-18] MEDS: Potassium Chloride 20 mEq ER Tab PO SCH (11:13)
--- NOTE | 2018-06-18 19:40 | CP.PCM.PN ---
Subjective - Date & Time of Evaluation Date of Evaluation: 06/18/18 Time of Evaluation: 19:40 Objective - Vital Signs/Intake and Output Vital Signs (last 24 hours): Temp Pulse Resp BP Pulse Ox 97.3 F L 109 H 18 165/63 H 96 06/18/18 07:30 06/18/18 16:00 06/18/18 07:30 06/18/18 07:30 06/18/18 07:30 Intake and Output: 06/18/18 06/19/18 18:59 06:59 Intake Total 500 Balance 500 - Medications Medications: Current Medications Albuterol/Ipratropium (Duoneb 3 Mg/0.5 Mg (3 Ml) Ud) 3 ml INH RQ6 [facility] Last Admin: 06/18/18 14:30 Dose: Not Given Alprazolam (Xanax) 0.5 mg PO Q12 [facility] Last Admin: 06/18/18 10:30 Dose: Not Given Aspirin (Ecotrin) 81 mg PO DAILY [facility] Last Admin: 06/18/18 11:10 Dose: 81 mg Chlorpromazine (Thorazine) 25 mg PO QID [facility] Last Admin: 06/18/18 18:20 Dose: 25 mg Clopidogrel Bisulfate (Plavix) 75 mg PO DAILY [facility] Last Admin: 06/18/18 11:10 Dose: 75 mg Famotidine (Pepcid) 20 mg PO DAILY [facility] Last Admin: 06/18/18 11:10 Dose: 20 mg Fentanyl (Duragesic) 1 patch TD Q72H [facility] Last Admin: 06/17/18 17:28 Dose: 1 patch Cefepime HCl 1 gm/ Dextrose 50 mls @ 100 mls/hr IVPB Q8H [facility]; Protocol Last Admin: 06/18/18 18:20 Dose: 100 mls/hr Methylprednisolone (Solu-Medrol) 40 mg IVP Q8 [facility] Last Admin: 06/18/18 14:25 Dose: 40 mg Metoclopramide HCl (Reglan) 5 mg PO DAILY [facility] Last Admin: 06/18/18 11:10 Dose: 5 mg Pantoprazole Sodium (Protonix Ec Tab) 40 mg PO DAILY [facility] Last Admin: 06/18/18 11:10 Dose: 40 mg Potassium Chloride (K-Dur 20 Meq Er Tab) 40 meq PO BRK [facility] Last Admin: 06/18/18 11:13 Dose: 40 meq Rosuvastatin Calcium (Crestor) 20 mg PO HS [facility] Last Admin: 06/17/18 22:36 Dose: Not Given Simethicone (Mylicon Chew Tab) 80 mg PO DAILY [facility] Last Admin: 06/18/18 11:10 Dose: 80 mg - Labs Labs: 06/15/18 07:02 06/15/18 07:02 PT 14.1 SECONDS (9.7-12.2) H 06/11/18 10:13 INR 1.3 06/11/18 10:13 APTT 29 SECONDS (21-34) 06/11/18 10:13
--- NOTE | 2018-06-18 22:47 | CARD ---
APPROVED REPORT Date of service: 06/14/2018 EKG Measurement Heart [id number] <Conclusion> Sinus tachycardia Septal infarct, age undetermined Abnormal ECG
[2018-06-19] MEDS: Albuterol-Ipratrop 3 mg / 0.5 (3 ml) UD INH SCH ×4 (01:04→20:00)
[2018-06-19] MEDS: MethylPREDNISolone 40 mg Vial IVP SCH ×3 (06:09→21:35)
[2018-06-19] MEDS: Potassium Chloride 20 mEq ER Tab PO SCH (11:08)
[2018-06-19] MEDS: Simethicone 80 mg Chewtab PO SCH (11:09)
[2018-06-19] MEDS: Pantoprazole 40 mg EC Tab PO SCH (11:10)
--- NOTE | 2018-06-19 16:00 | CP.PCM.PN ---
Subjective - Date & Time of Evaluation Date of Evaluation: 06/19/18 Time of Evaluation: 09:15 - Subjective Subjective: clinically same Objective - Vital Signs/Intake and Output Vital Signs (last 24 hours): Temp Pulse Resp BP Pulse Ox 98.7 F 119 H 20 113/80 96 06/19/18 15:24 06/19/18 15:24 06/19/18 15:24 06/19/18 15:24 06/19/18 15:24 Intake and Output: 06/19/18 06/19/18 06:59 18:59 Intake Total 800 Output Total 1050 Balance -250 - Medications Medications: Current Medications Albuterol/Ipratropium (Duoneb 3 Mg/0.5 Mg (3 Ml) Ud) 3 ml INH RQ6 [facility] Last Admin: 06/19/18 13:50 Dose: Not Given Aspirin (Ecotrin) 81 mg PO DAILY [facility] Last Admin: 06/19/18 11:09 Dose: Not Given Chlorpromazine (Thorazine) 25 mg PO QID [facility] Last Admin: 06/19/18 15:02 Dose: Not Given Clopidogrel Bisulfate (Plavix) 75 mg PO DAILY [facility] Last Admin: 06/19/18 11:09 Dose: Not Given Famotidine (Pepcid) 20 mg PO DAILY [facility] Last Admin: 06/19/18 11:09 Dose: Not Given Cefepime HCl 1 gm/ Dextrose 50 mls @ 100 mls/hr IVPB Q8H [facility]; Protocol Last Admin: 06/19/18 11:07 Dose: 100 mls/hr Methylprednisolone (Solu-Medrol) 40 mg IVP Q8 [facility] Last Admin: 06/19/18 15:00 Dose: 40 mg Metoclopramide HCl (Reglan) 5 mg PO DAILY [facility] Last Admin: 06/19/18 11:10 Dose: Not Given Pantoprazole Sodium (Protonix Ec Tab) 40 mg PO DAILY [facility] Last Admin: 06/19/18 11:10 Dose: Not Given Potassium Chloride (K-Dur 20 Meq Er Tab) 40 meq PO BRK [facility] Last Admin: 06/19/18 11:08 Dose: Not Given Rosuvastatin Calcium (Crestor) 20 mg PO HS [facility] Last Admin: 06/18/18 21:43 Dose: 20 mg Simethicone (Mylicon Chew Tab) 80 mg PO DAILY [facility] Last Admin: 06/19/18 11:09 Dose: Not Given - Labs Labs: 06/15/18 07:02 06/15/18 07:02 PT 14.1 SECONDS (9.7-12.2) H 06/11/18 10:13 INR 1.3 06/11/18 10:13 APTT 29 SECONDS (21-34) 06/11/18 10:13 - Constitutional Appears: Well - Head Exam Head Exam: ATRAUMATIC, NORMAL INSPECTION, NORMOCEPHALIC - Eye Exam Eye Exam: EOMI, Normal appearance, PERRL Pupil Exam: NORMAL ACCOMODATION, PERRL - ENT Exam ENT Exam: Mucous Membranes Moist, Normal Exam - Neck Exam Neck Exam: Full ROM, Normal Inspection. absent: Lymphadenopathy - Respiratory Exam Respiratory Exam: Decreased Breath Sounds - Cardiovascular Exam Cardiovascular Exam: REGULAR RHYTHM, +S1, +S2 - GI/Abdominal Exam GI & Abdominal Exam: Soft, Diminished Bowel Sounds - Rectal Exam Rectal Exam: Deferred
--- NOTE | 2018-06-19 17:34 | CP.PCM.PN ---
Subjective - Date & Time of Evaluation Date of Evaluation: 06/19/18 Time of Evaluation: 17:34 Objective - Vital Signs/Intake and Output Vital Signs (last 24 hours): Temp Pulse Resp BP Pulse Ox 98.7 F 119 H 20 113/80 96 06/19/18 15:24 06/19/18 15:24 06/19/18 15:24 06/19/18 15:24 06/19/18 15:24 Intake and Output: 06/19/18 06/19/18 06:59 18:59 Intake Total 800 Output Total 1050 Balance -250 - Medications Medications: Current Medications Albuterol/Ipratropium (Duoneb 3 Mg/0.5 Mg (3 Ml) Ud) 3 ml INH RQ6 [facility] Last Admin: 06/19/18 13:50 Dose: Not Given Aspirin (Ecotrin) 81 mg PO DAILY [facility] Last Admin: 06/19/18 11:09 Dose: Not Given Chlorpromazine (Thorazine) 25 mg PO QID [facility] Last Admin: 06/19/18 15:02 Dose: Not Given Clopidogrel Bisulfate (Plavix) 75 mg PO DAILY [facility] Last Admin: 06/19/18 11:09 Dose: Not Given Famotidine (Pepcid) 20 mg PO DAILY [facility] Last Admin: 06/19/18 11:09 Dose: Not Given Cefepime HCl 1 gm/ Dextrose 50 mls @ 100 mls/hr IVPB Q8H [facility]; Protocol Last Admin: 06/19/18 11:07 Dose: 100 mls/hr Methylprednisolone (Solu-Medrol) 40 mg IVP Q8 [facility] Last Admin: 06/19/18 15:00 Dose: 40 mg Metoclopramide HCl (Reglan) 5 mg PO DAILY [facility] Last Admin: 06/19/18 11:10 Dose: Not Given Pantoprazole Sodium (Protonix Ec Tab) 40 mg PO DAILY [facility] Last Admin: 06/19/18 11:10 Dose: Not Given Potassium Chloride (K-Dur 20 Meq Er Tab) 40 meq PO BRK [facility] Last Admin: 06/19/18 11:08 Dose: Not Given Rosuvastatin Calcium (Crestor) 20 mg PO HS [facility] Last Admin: 06/18/18 21:43 Dose: 20 mg Simethicone (Mylicon Chew Tab) 80 mg PO DAILY [facility] Last Admin: 06/19/18 11:09 Dose: Not Given - Labs Labs: 06/15/18 07:02 06/15/18 07:02 PT 14.1 SECONDS (9.7-12.2) H 06/11/18 10:13 INR 1.3 06/11/18 10:13 APTT 29 SECONDS (21-34) 06/11/18 10:13
--- NOTE | 2018-06-19 22:28 | CP.PCM.PN ---
Subjective - Date & Time of Evaluation Date of Evaluation: 06/19/18 Time of Evaluation: 15:15 - Subjective Subjective: dictated Objective - Vital Signs/Intake and Output Vital Signs (last 24 hours): Temp Pulse Resp BP Pulse Ox 98.7 F 119 H 20 113/80 96 06/19/18 15:24 06/19/18 15:24 06/19/18 15:24 06/19/18 15:24 06/19/18 15:24 - Medications Medications: Current Medications Albuterol/Ipratropium (Duoneb 3 Mg/0.5 Mg (3 Ml) Ud) 3 ml INH RQ6 [facility] Last Admin: 06/19/18 20:00 Dose: 3 ml Aspirin (Ecotrin) 81 mg PO DAILY [facility] Last Admin: 06/19/18 11:09 Dose: Not Given Chlorpromazine (Thorazine) 25 mg PO QID [facility] Last Admin: 06/19/18 21:36 Dose: Not Given Clopidogrel Bisulfate (Plavix) 75 mg PO DAILY [facility] Last Admin: 06/19/18 11:09 Dose: Not Given Famotidine (Pepcid) 20 mg PO DAILY [facility] Last Admin: 06/19/18 11:09 Dose: Not Given Cefepime HCl 1 gm/ Dextrose 50 mls @ 100 mls/hr IVPB Q8H [facility]; Protocol Last Admin: 06/19/18 19:47 Dose: 100 mls/hr Methylprednisolone (Solu-Medrol) 40 mg IVP Q8 [facility] Last Admin: 06/19/18 21:35 Dose: 40 mg Metoclopramide HCl (Reglan) 5 mg PO DAILY [facility] Last Admin: 06/19/18 11:10 Dose: Not Given Pantoprazole Sodium (Protonix Ec Tab) 40 mg PO DAILY [facility] Last Admin: 06/19/18 11:10 Dose: Not Given Potassium Chloride (K-Dur 20 Meq Er Tab) 40 meq PO BRK [facility] Last Admin: 06/19/18 11:08 Dose: Not Given Rosuvastatin Calcium (Crestor) 20 mg PO HS [facility] Last Admin: 06/19/18 21:36 Dose: Not Given Simethicone (Mylicon Chew Tab) 80 mg PO DAILY [facility] Last Admin: 06/19/18 11:09 Dose: Not Given - Labs Labs: 06/15/18 07:02 06/15/18 07:02 PT 14.1 SECONDS (9.7-12.2) H 06/11/18 10:13 INR 1.3 06/11/18 10:13 APTT 29 SECONDS (21-34) 06/11/18 10:13
[2018-06-20] MEDS: Albuterol-Ipratrop 3 mg / 0.5 (3 ml) UD INH SCH ×4 (01:06→20:10)
--- NOTE | 2018-06-20 03:45 | PN ---
DATE: 06/19/2018 SUBJECTIVE: The patient was seen today. He was very drowsy. Appears jaundiced. One of the daughters was there who said that he has been drowsy today, otherwise he yesterday ate well. The patient has extensive tumor of the lung with metastasis to the liver and had increased alkaline phosphatase. Family has to decide as there is none much can be done. I have still left him on IV antibiotics. PHYSICAL EXAMINATION: VITAL SIGNS: T-max is 98.7, heart rate of 119, blood pressure 113/80, respirations are 20. HEENT: Head is atraumatic. NECK: Supple. LUNGS: Clear. ABDOMEN: Soft, nontender. EXTREMITIES: Have no edema. LABORATORY DATA: There are no new labs done from 06/15/2018. ASSESSMENT AND PLAN: We should do labs tomorrow to see what we stand with his problem. He has been on antibiotics. We will see if we can get him supportive care. We will follow. Prognosis is very guarded. Apple Rasmussen MD
[2018-06-20] MEDS: MethylPREDNISolone 40 mg Vial IVP SCH ×3 (05:07→22:50)
[2018-06-20 07:30] LABS: HEMOGLOBIN 9.8 g/dL (12.0-18.0)
[2018-06-20 08:05] LABS: MEAN CELL VOLUME 95.4 fL (80.0-94.0); MEAN CORPUSCULAR HEMOGLOBIN 31.3 pg (27.0-31.0); MEAN CORPUSCULAR HGB CONC 32.8 g/dL (33.0-37.0); MEAN PLATELET VOLUME 10.1 fL (7.2-11.7); RBC 3.13 Mil/uL (4.40-5.90); RED CELL DISTRIBUTION WIDTH 17.2 % (11.5-14.5)
[2018-06-20] MEDS: Potassium Chloride 20 mEq ER Tab PO SCH (08:05)
[2018-06-20 08:08] LABS: PLATELET COUNT 141 K/uL (130-400); WHITE BLOOD COUNT 20.5 K/uL (4.8-10.8)
[2018-06-20 08:28] LABS: ALB/GLOB RATIO 0.9 (1.0-2.1); ALBUMIN 3.3 g/dL (3.5-5.0); ALT/SGPT 240 U/L (21-72); AST/SGOT 301 U/L (17-59); BLOOD UREA NITROGEN 35 mg/dL (9-20); CALCIUM 9.6 mg/dl (8.6-10.4); GFR NON-AFRICAN AMERICAN > 60
[2018-06-20 08:48] LABS: LYMPH # 0.6 K/uL (1.0-4.3); MONO # 0.6 K/uL (0.0-0.8)
[2018-06-20 08:49] LABS: EOS # 0.2 K/uL (0.0-0.7)
[2018-06-20 08:50] LABS: ANISOCYTOSIS SLIGHT; BANDS 2 % (0-2); EOSINOPHIL 1 % (0-4); LYMPHOCYTE 2 % (20-40); MONOCYTE 3 % (0-10); NEUTROPHIL 92 % (50-75); NUCLEATED RED BLOOD CELL 5 % (0-0); PLATELET ESTIMATE NORMAL (NORMAL); POIKILOCYTOSIS SLIGHT; TOTAL CELLS COUNTED 100
[2018-06-20 08:51] LABS: HYPOCHROMIC SLIGHT; MICROCYTOSIS SLIGHT; POLYCHROMIC SLIGHT; TARGET CELLS SLIGHT
[2018-06-20] MEDS: Sodium Chloride 0.9% 1,000 ML IV SCH ×2 (09:15→13:30)
[2018-06-20] MEDS: Simethicone 80 mg Chewtab PO SCH (10:06)
[2018-06-20] MEDS: Pantoprazole 40 mg EC Tab PO SCH (10:06)
--- NOTE | 2018-06-20 14:31 | RAD ---
Date of service: 06/20/2018 HISTORY: increasing wbc sepsis COMPARISON: 06/11/2018 FINDINGS: LUNGS: No active pulmonary disease. PLEURA: No significant pleural effusion identified, no pneumothorax apparent. CARDIOVASCULAR: Normal heart size. Sternotomy wires. No congestive change. OSSEOUS STRUCTURES: No significant abnormalities. VISUALIZED UPPER ABDOMEN: Normal. OTHER FINDINGS: None. IMPRESSION: No active disease.
--- NOTE | 2018-06-20 15:01 | CP.PCM.PN ---
Subjective - Date & Time of Evaluation Date of Evaluation: 06/20/18 Time of Evaluation: 14:58 - Subjective Subjective: Patient seen and examined No events overnight Objective - Vital Signs/Intake and Output Vital Signs (last 24 hours): Temp Pulse Resp BP Pulse Ox 98.4 F 110 H 20 147/72 95 06/20/18 07:00 06/20/18 07:00 06/20/18 07:00 06/20/18 07:00 06/20/18 07:00 Intake and Output: 06/20/18 06/20/18 06:59 18:59 Output Total 1100 Balance -1100 - Medications Medications: Current Medications Albuterol/Ipratropium (Duoneb 3 Mg/0.5 Mg (3 Ml) Ud) 3 ml INH RQ6 [facility] Last Admin: 06/20/18 13:54 Dose: Not Given Aspirin (Ecotrin) 81 mg PO DAILY [facility] Last Admin: 06/20/18 10:04 Dose: Not Given Chlorpromazine (Thorazine) 25 mg PO QID [facility] Last Admin: 06/20/18 14:53 Dose: Not Given Clopidogrel Bisulfate (Plavix) 75 mg PO DAILY [facility] Last Admin: 06/20/18 10:07 Dose: Not Given Famotidine (Pepcid) 20 mg PO DAILY [facility] Last Admin: 06/20/18 10:07 Dose: Not Given Sodium Chloride (Sodium Chloride 0.9%) 1,000 mls @ 50 mls/hr IV .Q20H [facility] Last Admin: 06/20/18 13:30 Dose: 50 mls/hr Moxifloxacin HCl (Avelox Iv 400mg/250ml Ns) 400 mg in 250 mls @ 167 mls/hr IVPB Q24H [facility]; Protocol Methylprednisolone (Solu-Medrol) 40 mg IVP Q8 [facility] Last Admin: 06/20/18 14:49 Dose: 40 mg Metoclopramide HCl (Reglan) 5 mg PO DAILY [facility] Last Admin: 06/20/18 10:05 Dose: Not Given Pantoprazole Sodium (Protonix Ec Tab) 40 mg PO DAILY [facility] Last Admin: 06/20/18 10:06 Dose: Not Given Potassium Chloride (K-Dur 20 Meq Er Tab) 40 meq PO BRK [facility] Last Admin: 06/20/18 08:05 Dose: Not Given Rosuvastatin Calcium (Crestor) 20 mg PO HS [facility] Last Admin: 06/19/18 21:36 Dose: Not Given Simethicone (Mylicon Chew Tab) 80 mg PO DAILY [facility] Last Admin: 06/20/18 10:06 Dose: Not Given - Labs Labs: 06/20/18 07:19 06/20/18 07:19 PT 14.1 SECONDS (9.7-12.2) H 06/11/18 10:13 INR 1.3 06/11/18 10:13 APTT 29 SECONDS (21-34) 06/11/18 10:13 - Head Exam Head Exam: NORMAL INSPECTION - Eye Exam Eye Exam: Normal appearance - ENT Exam ENT Exam: Mucous Membranes Moist - Respiratory Exam Respiratory Exam: Clear to Ausculation Bilateral, NORMAL BREATHING PATTERN - Cardiovascular Exam Cardiovascular Exam: REGULAR RHYTHM, +S1, +S2 - GI/Abdominal Exam GI & Abdominal Exam: Soft, Normal Bowel Sounds - Extremities Exam Extremities Exam: Normal Inspection - Neurological Exam Neurological Exam: Alert Assessment and Plan (1) SOB (shortness of breath) Status: Acute (2) Small cell lung cancer Status: Acute (3) Hypertension Status: Acute (4) Metastatic cancer to liver Status: Acute (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
[2018-06-20] MEDS: Moxifloxacin IV 400mg/250ml NS 400 MG/250 ML BAG IVPB SCH (17:00)
--- NOTE | 2018-06-20 21:13 | CP.PCM.PN ---
Subjective - Date & Time of Evaluation Date of Evaluation: 06/20/18 Time of Evaluation: 09:45 - Subjective Subjective: clinically same Objective - Vital Signs/Intake and Output Vital Signs (last 24 hours): Temp Pulse Resp BP Pulse Ox 98.7 F 100 H 18 92/63 L 97 06/20/18 15:30 06/20/18 15:30 06/20/18 15:30 06/20/18 15:30 06/20/18 15:30 - Medications Medications: Current Medications Albuterol/Ipratropium (Duoneb 3 Mg/0.5 Mg (3 Ml) Ud) 3 ml INH RQ6 [facility] Last Admin: 06/20/18 20:10 Dose: 3 ml Aspirin (Ecotrin) 81 mg PO DAILY [facility] Last Admin: 06/20/18 10:04 Dose: Not Given Chlorpromazine (Thorazine) 25 mg PO QID [facility] Last Admin: 06/20/18 18:29 Dose: Not Given Clopidogrel Bisulfate (Plavix) 75 mg PO DAILY [facility] Last Admin: 06/20/18 10:07 Dose: Not Given Famotidine (Pepcid) 20 mg PO DAILY [facility] Last Admin: 06/20/18 10:07 Dose: Not Given Sodium Chloride (Sodium Chloride 0.9%) 1,000 mls @ 50 mls/hr IV .Q20H [facility] Last Admin: 06/20/18 13:30 Dose: 50 mls/hr Moxifloxacin HCl (Avelox Iv 400mg/250ml Ns) 400 mg in 250 mls @ 167 mls/hr IVPB Q24H [facility]; Protocol Last Admin: 06/20/18 17:00 Dose: 167 mls/hr Methylprednisolone (Solu-Medrol) 40 mg IVP Q8 [facility] Last Admin: 06/20/18 14:49 Dose: 40 mg Metoclopramide HCl (Reglan) 5 mg PO DAILY [facility] Last Admin: 06/20/18 10:05 Dose: Not Given Pantoprazole Sodium (Protonix Ec Tab) 40 mg PO DAILY [facility] Last Admin: 06/20/18 10:06 Dose: Not Given Potassium Chloride (K-Dur 20 Meq Er Tab) 40 meq PO BRK [facility] Last Admin: 06/20/18 08:05 Dose: Not Given Rosuvastatin Calcium (Crestor) 20 mg PO HS [facility] Last Admin: 06/19/18 21:36 Dose: Not Given Simethicone (Mylicon Chew Tab) 80 mg PO DAILY [facility] Last Admin: 06/20/18 10:06 Dose: Not Given - Labs Labs: 06/20/18 07:19 06/20/18 07:19 PT 14.1 SECONDS (9.7-12.2) H 06/11/18 10:13 INR 1.3 06/11/18 10:13 APTT 29 SECONDS (21-34) 06/11/18 10:13
--- NOTE | 2018-06-20 23:10 | CP.PCM.PN ---
Subjective - Date & Time of Evaluation Date of Evaluation: 06/20/18 Time of Evaluation: 15:00 - Subjective Subjective: dictated Objective - Vital Signs/Intake and Output Vital Signs (last 24 hours): Temp Pulse Resp BP Pulse Ox 98.7 F 100 H 18 92/63 L 97 06/20/18 15:30 06/20/18 15:30 06/20/18 15:30 06/20/18 15:30 06/20/18 15:30 - Medications Medications: Current Medications Albuterol/Ipratropium (Duoneb 3 Mg/0.5 Mg (3 Ml) Ud) 3 ml INH RQ6 [facility] Last Admin: 06/20/18 20:10 Dose: 3 ml Aspirin (Ecotrin) 81 mg PO DAILY [facility] Last Admin: 06/20/18 10:04 Dose: Not Given Chlorpromazine (Thorazine) 25 mg PO QID [facility] Last Admin: 06/20/18 22:53 Dose: Not Given Clopidogrel Bisulfate (Plavix) 75 mg PO DAILY [facility] Last Admin: 06/20/18 10:07 Dose: Not Given Famotidine (Pepcid) 20 mg PO DAILY [facility] Last Admin: 06/20/18 10:07 Dose: Not Given Sodium Chloride (Sodium Chloride 0.9%) 1,000 mls @ 50 mls/hr IV .Q20H [facility] Last Admin: 06/20/18 13:30 Dose: 50 mls/hr Moxifloxacin HCl (Avelox Iv 400mg/250ml Ns) 400 mg in 250 mls @ 167 mls/hr IVPB Q24H [facility]; Protocol Last Admin: 06/20/18 17:00 Dose: 167 mls/hr Methylprednisolone (Solu-Medrol) 40 mg IVP Q8 [facility] Last Admin: 06/20/18 22:50 Dose: 40 mg Metoclopramide HCl (Reglan) 5 mg PO DAILY [facility] Last Admin: 06/20/18 10:05 Dose: Not Given Pantoprazole Sodium (Protonix Ec Tab) 40 mg PO DAILY [facility] Last Admin: 06/20/18 10:06 Dose: Not Given Potassium Chloride (K-Dur 20 Meq Er Tab) 40 meq PO BRK [facility] Last Admin: 06/20/18 08:05 Dose: Not Given Rosuvastatin Calcium (Crestor) 20 mg PO HS [facility] Last Admin: 06/20/18 22:53 Dose: Not Given Simethicone (Mylicon Chew Tab) 80 mg PO DAILY [facility] Last Admin: 06/20/18 10:06 Dose: Not Given - Labs Labs: 06/20/18 07:19 06/20/18 07:19 PT 14.1 SECONDS (9.7-12.2) H 06/11/18 10:13 INR 1.3 06/11/18 10:13 APTT 29 SECONDS (21-34) 06/11/18 10:13
--- NOTE | 2018-06-20 23:54 | CP.PCM.PN ---
Subjective - Date & Time of Evaluation Date of Evaluation: 06/16/18 Time of Evaluation: 12:00 - Subjective Subjective: Minimal response, family at bedside. Objective - Vital Signs/Intake and Output Vital Signs (last 24 hours): Temp Pulse Resp BP Pulse Ox 98.7 F 100 H 18 92/63 L 97 06/20/18 15:30 06/20/18 15:30 06/20/18 15:30 06/20/18 15:30 06/20/18 15:30 Intake and Output: 06/20/18 06/21/18 18:59 06:59 Intake Total 300 Output Total 350 Balance -50 - Medications Medications: Current Medications Albuterol/Ipratropium (Duoneb 3 Mg/0.5 Mg (3 Ml) Ud) 3 ml INH RQ6 [facility] Last Admin: 06/20/18 20:10 Dose: 3 ml Aspirin (Ecotrin) 81 mg PO DAILY [facility] Last Admin: 06/20/18 10:04 Dose: Not Given Chlorpromazine (Thorazine) 25 mg PO QID [facility] Last Admin: 06/20/18 22:53 Dose: Not Given Clopidogrel Bisulfate (Plavix) 75 mg PO DAILY [facility] Last Admin: 06/20/18 10:07 Dose: Not Given Famotidine (Pepcid) 20 mg PO DAILY [facility] Last Admin: 06/20/18 10:07 Dose: Not Given Sodium Chloride (Sodium Chloride 0.9%) 1,000 mls @ 50 mls/hr IV .Q20H [facility] Last Admin: 06/20/18 13:30 Dose: 50 mls/hr Moxifloxacin HCl (Avelox Iv 400mg/250ml Ns) 400 mg in 250 mls @ 167 mls/hr IVPB Q24H [facility]; Protocol Last Admin: 06/20/18 17:00 Dose: 167 mls/hr Methylprednisolone (Solu-Medrol) 40 mg IVP Q8 [facility] Last Admin: 06/20/18 22:50 Dose: 40 mg Metoclopramide HCl (Reglan) 5 mg PO DAILY [facility] Last Admin: 06/20/18 10:05 Dose: Not Given Pantoprazole Sodium (Protonix Ec Tab) 40 mg PO DAILY [facility] Last Admin: 06/20/18 10:06 Dose: Not Given Potassium Chloride (K-Dur 20 Meq Er Tab) 40 meq PO BRK [facility] Last Admin: 06/20/18 08:05 Dose: Not Given Rosuvastatin Calcium (Crestor) 20 mg PO HS [facility] Last Admin: 06/20/18 22:53 Dose: Not Given Simethicone (Mylicon Chew Tab) 80 mg PO DAILY [facility] Last Admin: 06/20/18 10:06 Dose: Not Given - Labs Labs: 06/20/18 07:19 06/20/18 07:19 PT 14.1 SECONDS (9.7-12.2) H 06/11/18 10:13 INR 1.3 06/11/18 10:13 APTT 29 SECONDS (21-34) 06/11/18 10:13 - Head Exam Head Exam: ATRAUMATIC - Eye Exam Eye Exam: Normal appearance - ENT Exam ENT Exam: Mucous Membranes Dry - Respiratory Exam Respiratory Exam: NORMAL BREATHING PATTERN - Cardiovascular Exam Cardiovascular Exam: +S1, +S2 - GI/Abdominal Exam GI & Abdominal Exam: Normal Bowel Sounds Assessment and Plan (1) Altered mental status Assessment & Plan: ? CVA CT head negative for acute change Status: Acute (2) Anemia Assessment & Plan: chronic disease from malignancy Status: Acute (3) Small cell lung cancer Assessment & Plan: AMS and rising bilirubin - poor prognosis and unlikely to benefit from further chemotherapy discussed with the patients daughter supportive care palliative care evaluation family wishes full code and refused hospice Status: Acute
--- NOTE | 2018-06-20 23:55 | CP.PCM.PN ---
Subjective - Date & Time of Evaluation Date of Evaluation: 06/17/18 Time of Evaluation: 13:00 - Subjective Subjective: Minimal response, family at bedside. Objective - Vital Signs/Intake and Output Vital Signs (last 24 hours): Temp Pulse Resp BP Pulse Ox 98.7 F 100 H 18 92/63 L 97 06/20/18 15:30 06/20/18 15:30 06/20/18 15:30 06/20/18 15:30 06/20/18 15:30 Intake and Output: 06/20/18 06/21/18 18:59 06:59 Intake Total 300 Output Total 350 Balance -50 - Medications Medications: Current Medications Albuterol/Ipratropium (Duoneb 3 Mg/0.5 Mg (3 Ml) Ud) 3 ml INH RQ6 [facility] Last Admin: 06/20/18 20:10 Dose: 3 ml Aspirin (Ecotrin) 81 mg PO DAILY [facility] Last Admin: 06/20/18 10:04 Dose: Not Given Chlorpromazine (Thorazine) 25 mg PO QID [facility] Last Admin: 06/20/18 22:53 Dose: Not Given Clopidogrel Bisulfate (Plavix) 75 mg PO DAILY [facility] Last Admin: 06/20/18 10:07 Dose: Not Given Famotidine (Pepcid) 20 mg PO DAILY [facility] Last Admin: 06/20/18 10:07 Dose: Not Given Sodium Chloride (Sodium Chloride 0.9%) 1,000 mls @ 50 mls/hr IV .Q20H [facility] [place] Last Admin: 06/20/18 13:30 Dose: 50 mls/hr Moxifloxacin HCl (Avelox Iv 400mg/250ml Ns) 400 mg in 250 mls @ 167 mls/hr IVPB Q24H [facility]; Protocol Last Admin: 06/20/18 17:00 Dose: 167 mls/hr Methylprednisolone (Solu-Medrol) 40 mg IVP Q8 [facility] Last Admin: 06/20/18 22:50 Dose: 40 mg Metoclopramide HCl (Reglan) 5 mg PO DAILY [facility] Last Admin: 06/20/18 10:05 Dose: Not Given Pantoprazole Sodium (Protonix Ec Tab) 40 mg PO DAILY [facility] Last Admin: 06/20/18 10:06 Dose: Not Given Potassium Chloride (K-Dur 20 Meq Er Tab) 40 meq PO BRK [facility] Last Admin: 06/20/18 08:05 Dose: Not Given Rosuvastatin Calcium (Crestor) 20 mg PO HS [facility] Last Admin: 06/20/18 22:53 Dose: Not Given Simethicone (Mylicon Chew Tab) 80 mg PO DAILY [facility] Last Admin: 06/20/18 10:06 Dose: Not Given - Labs Labs: 06/20/18 07:19 06/20/18 07:19 PT 14.1 SECONDS (9.7-12.2) H 06/11/18 10:13 INR 1.3 06/11/18 10:13 APTT 29 SECONDS (21-34) 06/11/18 10:13 - Head Exam Head Exam: ATRAUMATIC - Eye Exam Eye Exam: Normal appearance - ENT Exam ENT Exam: Mucous Membranes Dry - Respiratory Exam Respiratory Exam: NORMAL BREATHING PATTERN - Cardiovascular Exam Cardiovascular Exam: +S1, +S2 - GI/Abdominal Exam GI & Abdominal Exam: Normal Bowel Sounds Assessment and Plan (1) Altered mental status Assessment & Plan: ? CVA CT head negative for acute change Status: Acute (2) Anemia Assessment & Plan: chronic disease from malignancy Status: Acute (3) Small cell lung cancer Assessment & Plan: AMS and rising bilirubin - poor prognosis and unlikely to benefit from further chemotherapy discussed with the patients daughter supportive care palliative care evaluation family wishes full code and refused hospice Status: Acute
--- NOTE | 2018-06-20 23:57 | CP.PCM.PN ---
Subjective - Date & Time of Evaluation Date of Evaluation: 06/18/18 Time of Evaluation: 20:00 - Subjective Subjective: Minimal response, family at bedside. Objective - Vital Signs/Intake and Output Vital Signs (last 24 hours): Temp Pulse Resp BP Pulse Ox 98.7 F 100 H 18 92/63 L 97 06/20/18 15:30 06/20/18 15:30 06/20/18 15:30 06/20/18 15:30 06/20/18 15:30 Intake and Output: 06/20/18 06/21/18 18:59 06:59 Intake Total 300 Output Total 350 Balance -50 - Medications Medications: Current Medications Albuterol/Ipratropium (Duoneb 3 Mg/0.5 Mg (3 Ml) Ud) 3 ml INH RQ6 [facility] Last Admin: 06/20/18 20:10 Dose: 3 ml Aspirin (Ecotrin) 81 mg PO DAILY [facility] Last Admin: 06/20/18 10:04 Dose: Not Given Chlorpromazine (Thorazine) 25 mg PO QID [facility] Last Admin: 06/20/18 22:53 Dose: Not Given Clopidogrel Bisulfate (Plavix) 75 mg PO DAILY [facility] Last Admin: 06/20/18 10:07 Dose: Not Given Famotidine (Pepcid) 20 mg PO DAILY [facility] Last Admin: 06/20/18 10:07 Dose: Not Given Sodium Chloride (Sodium Chloride 0.9%) 1,000 mls @ 50 mls/hr IV .Q20H [facility] Last Admin: 06/20/18 13:30 Dose: 50 mls/hr Moxifloxacin HCl (Avelox Iv 400mg/250ml Ns) 400 mg in 250 mls @ 167 mls/hr IVPB Q24H [facility]; Protocol Last Admin: 06/20/18 17:00 Dose: 167 mls/hr Methylprednisolone (Solu-Medrol) 40 mg IVP Q8 [facility] Last Admin: 06/20/18 22:50 Dose: 40 mg Metoclopramide HCl (Reglan) 5 mg PO DAILY [facility] Last Admin: 06/20/18 10:05 Dose: Not Given Pantoprazole Sodium (Protonix Ec Tab) 40 mg PO DAILY [facility] Last Admin: 06/20/18 10:06 Dose: Not Given Potassium Chloride (K-Dur 20 Meq Er Tab) 40 meq PO BRK [facility] Last Admin: 06/20/18 08:05 Dose: Not Given Rosuvastatin Calcium (Crestor) 20 mg PO HS [facility] Last Admin: 06/20/18 22:53 Dose: Not Given Simethicone (Mylicon Chew Tab) 80 mg PO DAILY [facility] Last Admin: 06/20/18 10:06 Dose: Not Given - Labs Labs: 06/20/18 07:19 06/20/18 07:19 PT 14.1 SECONDS (9.7-12.2) H 06/11/18 10:13 INR 1.3 06/11/18 10:13 APTT 29 SECONDS (21-34) 06/11/18 10:13 - Head Exam Head Exam: ATRAUMATIC - Eye Exam Eye Exam: Normal appearance - ENT Exam ENT Exam: Mucous Membranes Dry - Respiratory Exam Respiratory Exam: NORMAL BREATHING PATTERN - Cardiovascular Exam Cardiovascular Exam: +S1, +S2 - GI/Abdominal Exam GI & Abdominal Exam: Normal Bowel Sounds Assessment and Plan (1) Altered mental status Assessment & Plan: ? CVA CT head negative for acute change Status: Acute (2) Anemia Assessment & Plan: chronic disease from malignancy Status: Acute (3) Small cell lung cancer Assessment & Plan: AMS and rising bilirubin - poor prognosis and unlikely to benefit from further chemotherapy discussed with the patients daughter supportive care palliative care evaluation family wishes full code and refused hospice Status: Acute
--- NOTE | 2018-06-20 23:58 | CP.PCM.PN ---
Subjective - Date & Time of Evaluation Date of Evaluation: 06/19/18 Time of Evaluation: 14:00 - Subjective Subjective: Minimal response, family at bedside. Objective - Vital Signs/Intake and Output Vital Signs (last 24 hours): Temp Pulse Resp BP Pulse Ox 98.7 F 100 H 18 92/63 L 97 06/20/18 15:30 06/20/18 15:30 06/20/18 15:30 06/20/18 15:30 06/20/18 15:30 Intake and Output: 06/20/18 06/21/18 18:59 06:59 Intake Total 300 Output Total 350 Balance -50 - Medications Medications: Current Medications Albuterol/Ipratropium (Duoneb 3 Mg/0.5 Mg (3 Ml) Ud) 3 ml INH RQ6 [facility] Last Admin: 06/20/18 20:10 Dose: 3 ml Aspirin (Ecotrin) 81 mg PO DAILY [facility] Last Admin: 06/20/18 10:04 Dose: Not Given Chlorpromazine (Thorazine) 25 mg PO QID [facility] Last Admin: 06/20/18 22:53 Dose: Not Given Clopidogrel Bisulfate (Plavix) 75 mg PO DAILY [facility] Last Admin: 06/20/18 10:07 Dose: Not Given Famotidine (Pepcid) 20 mg PO DAILY [facility] Last Admin: 06/20/18 10:07 Dose: Not Given Sodium Chloride (Sodium Chloride 0.9%) 1,000 mls @ 50 mls/hr IV .Q20H [facility] Last Admin: 06/20/18 13:30 Dose: 50 mls/hr Moxifloxacin HCl (Avelox Iv 400mg/250ml Ns) 400 mg in 250 mls @ 167 mls/hr IVPB Q24H [facility]; Protocol Last Admin: 06/20/18 17:00 Dose: 167 mls/hr Methylprednisolone (Solu-Medrol) 40 mg IVP Q8 [facility] Last Admin: 06/20/18 22:50 Dose: 40 mg Metoclopramide HCl (Reglan) 5 mg PO DAILY [facility] Last Admin: 06/20/18 10:05 Dose: Not Given Pantoprazole Sodium (Protonix Ec Tab) 40 mg PO DAILY [facility] Last Admin: 06/20/18 10:06 Dose: Not Given Potassium Chloride (K-Dur 20 Meq Er Tab) 40 meq PO BRK [facility] Last Admin: 06/20/18 08:05 Dose: Not Given Rosuvastatin Calcium (Crestor) 20 mg PO HS [facility] Last Admin: 06/20/18 22:53 Dose: Not Given Simethicone (Mylicon Chew Tab) 80 mg PO DAILY [facility] Last Admin: 06/20/18 10:06 Dose: Not Given - Labs Labs: 06/20/18 07:19 06/20/18 07:19 PT 14.1 SECONDS (9.7-12.2) H 06/11/18 10:13 INR 1.3 06/11/18 10:13 APTT 29 SECONDS (21-34) 06/11/18 10:13 - Head Exam Head Exam: ATRAUMATIC - Eye Exam Eye Exam: Normal appearance - ENT Exam ENT Exam: Mucous Membranes Dry - Respiratory Exam Respiratory Exam: NORMAL BREATHING PATTERN - Cardiovascular Exam Cardiovascular Exam: +S1, +S2 - GI/Abdominal Exam GI & Abdominal Exam: Normal Bowel Sounds Assessment and Plan (1) Altered mental status Assessment & Plan: ? CVA CT head negative for acute change Status: Acute (2) Anemia Assessment & Plan: chronic disease from malignancy Status: Acute (3) Small cell lung cancer Assessment & Plan: AMS and rising bilirubin - poor prognosis and unlikely to benefit from further chemotherapy discussed with the patients daughter supportive care palliative care evaluation family wishes full code and refused hospice Status: Acute
--- NOTE | 2018-06-20 23:59 | CP.PCM.PN ---
Subjective - Date & Time of Evaluation Date of Evaluation: 06/20/18 Time of Evaluation: 17:00 - Subjective Subjective: Minimal response, at bedside. Objective - Vital Signs/Intake and Output Vital Signs (last 24 hours): Temp Pulse Resp BP Pulse Ox 98.7 F 100 H 18 92/63 L 97 06/20/18 15:30 06/20/18 15:30 06/20/18 15:30 06/20/18 15:30 06/20/18 15:30 Intake and Output: 06/20/18 06/21/18 18:59 06:59 Intake Total 300 Output Total 350 Balance -50 - Medications Medications: Current Medications Albuterol/Ipratropium (Duoneb 3 Mg/0.5 Mg (3 Ml) Ud) 3 ml INH RQ6 [facility] Last Admin: 06/20/18 20:10 Dose: 3 ml Aspirin (Ecotrin) 81 mg PO DAILY [facility] Last Admin: 06/20/18 10:04 Dose: Not Given Chlorpromazine (Thorazine) 25 mg PO QID [facility] Last Admin: 06/20/18 22:53 Dose: Not Given Clopidogrel Bisulfate (Plavix) 75 mg PO DAILY [facility] Last Admin: 06/20/18 10:07 Dose: Not Given Famotidine (Pepcid) 20 mg PO DAILY [facility] Last Admin: 06/20/18 10:07 Dose: Not Given Sodium Chloride (Sodium Chloride 0.9%) 1,000 mls @ 50 mls/hr IV .Q20H [facility] Last Admin: 06/20/18 13:30 Dose: 50 mls/hr Moxifloxacin HCl (Avelox Iv 400mg/250ml Ns) 400 mg in 250 mls @ 167 mls/hr IVPB Q24H [facility]; Protocol Last Admin: 06/20/18 17:00 Dose: 167 mls/hr Methylprednisolone (Solu-Medrol) 40 mg IVP Q8 [facility] Last Admin: 06/20/18 22:50 Dose: 40 mg Metoclopramide HCl (Reglan) 5 mg PO DAILY [facility] Last Admin: 06/20/18 10:05 Dose: Not Given Pantoprazole Sodium (Protonix Ec Tab) 40 mg PO DAILY [facility] Last Admin: 06/20/18 10:06 Dose: Not Given Potassium Chloride (K-Dur 20 Meq Er Tab) 40 meq PO BRK [facility] Last Admin: 06/20/18 08:05 Dose: Not Given Rosuvastatin Calcium (Crestor) 20 mg PO HS [facility] Last Admin: 06/20/18 22:53 Dose: Not Given Simethicone (Mylicon Chew Tab) 80 mg PO DAILY [facility] Last Admin: 06/20/18 10:06 Dose: Not Given - Labs Labs: 06/20/18 07:19 06/20/18 07:19 PT 14.1 SECONDS (9.7-12.2) H 06/11/18 10:13 INR 1.3 06/11/18 10:13 APTT 29 SECONDS (21-34) 06/11/18 10:13 - Head Exam Head Exam: ATRAUMATIC - Eye Exam Eye Exam: Normal appearance - ENT Exam ENT Exam: Mucous Membranes Dry - Respiratory Exam Respiratory Exam: NORMAL BREATHING PATTERN - Cardiovascular Exam Cardiovascular Exam: +S1, +S2 - GI/Abdominal Exam GI & Abdominal Exam: Normal Bowel Sounds Assessment and Plan (1) Altered mental status Assessment & Plan: ? CVA CT head negative for acute change Status: Acute (2) Anemia Assessment & Plan: chronic disease from malignancy Status: Acute (3) Small cell lung cancer Assessment & Plan: AMS and rising bilirubin - poor prognosis and unlikely to benefit from further chemotherapy discussed with the patients daughter supportive care palliative care evaluation family wishes full code and refused hospice Status: Acute
[2018-06-21] MEDS: Albuterol-Ipratrop 3 mg / 0.5 (3 ml) UD INH SCH ×2 (01:20→07:30)
[2018-06-21] MEDS ORDERED: Sodium Chloride 0.9% 1,000 ML IV ONE (01:59)
[2018-06-21 02:00] LABS: ARTERIAL BLOOD GAS HCO3 17.2 mmol/L (21-28); ARTERIAL BLOOD GAS O2 SAT 97.8 % (95-98); ARTERIAL BLOOD GAS PCO2 19 mm/Hg (35-45); ARTERIAL BLOOD GAS PH 7.42 (7.35-7.45); ARTERIAL BLOOD GAS PO2 65 mm/Hg (80-100); ARTERIAL BLOOD GAS TCO2 12.9 mmol/L (22-28)
--- NOTE | 2018-06-21 02:05 | CP.PCM.PN ---
Addendum entered and electronically signed by Gerry Hanson MD 06/21/18 07:51: Critical care time spent 60 mins Original Note: <Lyric Estevez - Last Filed: 06/21/18 02:59> Subjective - Date & Time of Evaluation Date of Evaluation: 06/21/18 Time of Evaluation: 01:04 - Subjective Subjective: Medicine Progress Note: Nurse paged house doctor to evaluate Mr. Jorge Sim. Per nursing patient was hypotensive, tachypnic, hypoxic on 3L nasal cannula. Patient evaluated at the bedside. He was hypotensive, hypoxic and febrile. Patient was placed on a non- rebreather. We noticed urinary retention. Renee catheter was inserted and fluid bolus was given. STAT ABG shock panel showed pH 7.42, pCO2 19, PO2 65, H3O2 17.2, Lactate 4.0. STAT labs (CBC, CMP, UA, Urine culture, blood culture, pro calcitonin), CXR ordered. Merrem 1gm Q8H and additional NS bolus ordered. Due to patient's current condition, CTA chest, abdomen and pelvis was ordered. Patient's daughter was at the bedside. Patient is still full code. Discussed the case with Dr Woodson. Patient to be transferred to the ICU for further management. Dr Hanson present during entire encounter. Lyric Estevez DO PGY-2 Objective - Vital Signs/Intake and Output Vital Signs (last 24 hours): Temp Pulse Resp BP Pulse Ox 98.2 F 115 H 20 92/63 L 97 06/20/18 23:30 06/20/18 23:30 06/20/18 23:30 06/20/18 15:30 06/20/18 15:30 Intake and Output: 06/20/18 06/21/18 18:59 06:59 Intake Total 300 Output Total 350 Balance -50 - Medications Medications: Current Medications Albuterol/Ipratropium (Duoneb 3 Mg/0.5 Mg (3 Ml) Ud) 3 ml INH RQ6 [facility] Last Admin: 06/20/18 20:10 Dose: 3 ml Aspirin (Ecotrin) 81 mg PO DAILY [facility] Last Admin: 06/20/18 10:04 Dose: Not Given Chlorpromazine (Thorazine) 25 mg PO QID [facility] Last Admin: 06/20/18 22:53 Dose: Not Given Clopidogrel Bisulfate (Plavix) 75 mg PO DAILY [facility] Last Admin: 06/20/18 10:07 Dose: Not Given Famotidine (Pepcid) 20 mg PO DAILY [facility] Last Admin: 06/20/18 10:07 Dose: Not Given Sodium Chloride (Sodium Chloride 0.9%) 1,000 mls @ 50 mls/hr IV .Q20H [facility] Last Admin: 06/20/18 13:30 Dose: 50 mls/hr Moxifloxacin HCl (Avelox Iv 400mg/250ml Ns) 400 mg in 250 mls @ 167 mls/hr IVPB Q24H [facility]; Protocol Last Admin: 06/20/18 17:00 Dose: 167 mls/hr Meropenem 1 gm/ Sodium (Chloride) 100 mls @ 100 mls/hr IVPB Q8H [facility]; Protocol Sodium Chloride (Sodium Chloride 0.9%) 1,000 mls @ 1,000 mls/hr IV .Q1H [facility]: 06/21/18 02:58 Methylprednisolone (Solu-Medrol) 40 mg IVP Q8 [facility] Last Admin: 06/20/18 22:50 Dose: 40 mg Metoclopramide HCl (Reglan) 5 mg PO DAILY [facility] Last Admin: 06/20/18 10:05 Dose: Not Given Pantoprazole Sodium (Protonix Ec Tab) 40 mg PO DAILY [facility] Last Admin: 06/20/18 10:06 Dose: Not Given Potassium Chloride (K-Dur 20 Meq Er Tab) 40 meq PO BRK [facility] Last Admin: 06/20/18 08:05 Dose: Not Given Rosuvastatin Calcium (Crestor) 20 mg PO HS [facility] Last Admin: 06/20/18 22:53 Dose: Not Given Simethicone (Mylicon Chew Tab) 80 mg PO DAILY [facility] Last Admin: 06/20/18 10:06 Dose: Not Given - Labs Labs: 06/20/18 07:19 06/20/18 07:19 PT 14.1 SECONDS (9.7-12.2) H 06/11/18 10:13 INR 1.3 06/11/18 10:13 APTT 29 SECONDS (21-34) 06/11/18 10:13 Assessment/Plan Progress Note - Problems Patient Problems: Problem List (Active/Current) Problem Status Onset Code Altered mental status Acute R41.82 Non-sustained ventricular tachycardia Acute I47.2 SOB (shortness of breath) Acute R06.02 <Gerry Hanson P - Last Filed: 06/21/18 07:42> Objective - Vital Signs/Intake and Output Vital Signs (last 24 hours): Temp Pulse Resp BP Pulse Ox 98.4 F 105 H 18 103/61 100 06/21/18 04:00 06/21/18 04:00 06/21/18 04:00 06/21/18 04:00 06/21/18 04:00 Intake and Output: 06/21/18 06/21/18 06:59 18:59 Intake Total 350 Output Total 1475 Balance -1125 - Medications Medications: Current Medications Albuterol/Ipratropium (Duoneb 3 Mg/0.5 Mg (3 Ml) Ud) 3 ml INH RQ6 [facility] Last Admin: 06/21/18 01:20 Dose: 3 ml Aspirin (Ecotrin) 81 mg PO DAILY [facility] Last Admin: 06/20/18 10:04 Dose: Not Given Chlorpromazine (Thorazine) 25 mg PO QID [facility] Last Admin: 06/20/18 22:53 Dose: Not Given Clopidogrel Bisulfate (Plavix) 75 mg PO DAILY [facility] Last Admin: 06/20/18 10:07 Dose: Not Given Famotidine (Pepcid) 20 mg PO DAILY [facility] Last Admin: 06/20/18 10:07 Dose: Not Given Sodium Chloride (Sodium Chloride 0.9%) 1,000 mls @ 50 mls/hr IV .Q20H [facility] Last Admin: 06/21/18 05:00 Dose: 50 mls/hr Moxifloxacin HCl (Avelox Iv 400mg/250ml Ns) 400 mg in 250 mls @ 167 mls/hr IVPB Q24H [facility]; Protocol Last Admin: 06/20/18 17:00 Dose: 167 mls/hr Meropenem 1 gm/ Sodium (Chloride) 100 mls @ 100 mls/hr IVPB Q8H [facility]; Protocol Last Admin: 06/21/18 02:38 Dose: 100 mls/hr Methylprednisolone (Solu-Medrol) 40 mg IVP Q8 [facility] Last Admin: 06/21/18 06:19 Dose: 40 mg Metoclopramide HCl (Reglan) 5 mg PO DAILY [facility] Last Admin: 06/20/18 10:05 Dose: Not Given Pantoprazole Sodium (Protonix Ec Tab) 40 mg PO DAILY [facility] Last Admin: 06/20/18 10:06 Dose: Not Given Potassium Chloride (K-Dur 20 Meq Er Tab) 40 meq PO BRK [facility] Last Admin: 06/20/18 08:05 Dose: Not Given Rosuvastatin Calcium (Crestor) 20 mg PO HS [facility] Last Admin: 06/20/18 22:53 Dose: Not Given Simethicone (Mylicon Chew Tab) 80 mg PO DAILY [facility] Last Admin: 06/20/18 10:06 Dose: Not Given - Labs Labs: 06/21/18 02:21 06/21/18 02:21 PT 101.0 SECONDS (9.7-12.2) H 06/21/18 02:30 INR 9.2 06/21/18 02:30 APTT 35 SECONDS (21-34) H 06/21/18 02:30 Attending/Attestation - Attestation I have personally seen and examined this patient.: Yes I have fully participated in the care of the patient.: Yes I have reviewed all pertinent clinical information, including history, physical exam and plan: Yes Notes (Text): 06/21/18 07:37 Hypoxia from multilobar pna acute urinary retention 1.1 lit, renee inserted Shock with hypoxia, hypotension, increased RR, needing 100% fiow, iv bolus, suspected PNA and urine as cause Lung cancer with hepatic mets with jaundice Full code as per the daughter, even though resuscitation methods will not treat the cancer, CAD, s/p cabg Plan Changed abx to Meropenium, continued avelox, will add vancomycin single dose Bipap to reduce work of breathing IVF Transferred to ICU and care transferred to ICU team. Spoke to family.
[2018-06-21 02:24] LABS: HEMOGLOBIN 8.9 g/dL (12.0-18.0); MEAN CELL VOLUME 97.8 fL (80.0-94.0); MEAN CORPUSCULAR HEMOGLOBIN 31.8 pg (27.0-31.0); MEAN CORPUSCULAR HGB CONC 32.5 g/dL (33.0-37.0); MEAN PLATELET VOLUME 10.3 fL (7.2-11.7); PLATELET COUNT 121 K/uL (130-400); RBC 2.81 Mil/uL (4.40-5.90); RED CELL DISTRIBUTION WIDTH 17.6 % (11.5-14.5); WHITE BLOOD COUNT 9.1 K/uL (4.8-10.8)
[2018-06-21 02:29] LABS: SQUAMOUS EPITHIAL < 1 /hpf (0-5); URINE BILIRUBIN 1+ (NEGATIVE); URINE BLOOD TRACE (NEGATIVE); URINE CLARITY Hazy (Clear); URINE COLOR Amber (YELLOW); URINE GLUCOSE (UA) NORMAL (Normal); URINE LEUKOCYTE ESTERASE NEG Leu/uL (Negative); URINE PROTEIN 1+ mg/dL (NEGATIVE); URINE UROBILINOGEN NORMAL mg/dL (0.2-1.0)
[2018-06-21] MEDS: Meropenem 1 GM in Sodium Chloride 0.9% 100 ML IVPB SCH ×2 (02:38→10:12)
[2018-06-21] MEDS ORDERED: Iodixanol 320 MG/ML 100 ML BOTTLE IV ONE (02:54)
[2018-06-21 02:57] LABS: ALB/GLOB RATIO 0.9 (1.0-2.1); ALBUMIN 2.9 g/dL (3.5-5.0); ALT/SGPT 329 U/L (21-72); AST/SGOT 626 U/L (17-59); BLOOD UREA NITROGEN 51 mg/dL (9-20); CALCIUM 8.9 mg/dl (8.6-10.4); GFR NON-AFRICAN AMERICAN > 60
[2018-06-21 03:02] LABS: INR 9.2
[2018-06-21 04:12] LABS: ANISOCYTOSIS MODERATE; BANDS 12 % (0-2); LYMPHOCYTE 2 % (20-40); MONOCYTE 2 % (0-10); NEUTROPHIL 84 % (50-75); NUCLEATED RED BLOOD CELL 18 % (0-0); PLATELET ESTIMATE SLIGHTLY DECREASED (NORMAL); TOTAL CELLS COUNTED 100
[2018-06-21 04:13] LABS: GIANT PLATELETS PRESENT; LARGE PLATELETS PRESENT; POLYCHROMIC MODERATE; ROULEAUX FORMATION SLIGHT
[2018-06-21 04:14] LABS: MICROCYTOSIS SLIGHT; TEARDROP CELLS SLIGHT
[2018-06-21] MEDS: Sodium Chloride 0.9% 1,000 ML IV SCH (05:00)
--- NOTE | 2018-06-21 05:02 | PN ---
DATE: 06/20/2018 INFECTIOUS DISEASE FOLLOWUP SUBJECTIVE: The patient is severely jaundiced. He is not eating much, but he has no new events. PHYSICAL EXAMINATION: VITAL SIGNS: Temperature was 98.4, heart rate of 110, respirations 20, blood pressure 142/72. HEENT: Head is atraumatic, normocephalic. NECK: Supple. LUNGS: Clear. HEART: S1 and S2 are regular. ABDOMEN: Soft, nontender. EXTREMITIES: Have no edema. LABORATORY DATA: His labs were showing that the white count increased to 20.5, hemoglobin is 9.8, hematocrit 29.8, platelet count is 141. He has been on steroids, but the white count increased further. His LFTs show that his bilirubin became from 8.4 to 21.4 and tremendous increase in the liver enzymes, AST, ALT, alk phos. ASSESSMENT AND PLAN: Though he has metastatic liver disease at this time, I would discontinue Maxipime and would put him on Avelox. Part of this, white count may be due to steroids, so we should look into liver toxic drugs and especially Crestor has been stopped. He has stopped most of the drugs. Prognosis remains guarded. Family was already made aware of it by the palliative care nurse before. We will follow. Hopefully, he will improve for now. Apple Rasmussen MD
[2018-06-21 06:10] LABS: ARTERIAL BLOOD GAS HCO3 19.3 mmol/L (21-28); ARTERIAL BLOOD GAS O2 SAT 100.2 % (95-98); ARTERIAL BLOOD GAS PCO2 20 mm/Hg (35-45); ARTERIAL BLOOD GAS PH 7.46 (7.35-7.45); ARTERIAL BLOOD GAS PO2 336 mm/Hg (80-100); ARTERIAL BLOOD GAS TCO2 14.8 mmol/L (22-28)
[2018-06-21] MEDS: MethylPREDNISolone 40 mg Vial IVP SCH ×2 (06:19→15:41)
--- NOTE | 2018-06-21 08:42 | CT ---
Date of service: 06/21/2018 PROCEDURE: CT Chest with contrast (Pulmonary Angiogram) HISTORY: shortness of breath COMPARISON: 06/11/2018 CT thorax pulmonary embolism protocol TECHNIQUE: Axial computed tomography images were obtained of the chest in the pulmonary arterial phase of enhancement. Coronal and sagittal reformatted images were created and reviewed. Intravenous contrast dose: 100 cc Visipaque 320 Mean Hounsfield value in the main pulmonary artery: 358.28 Radiation dose: Total exam DLP = 331.22 mGy-cm. This CT exam was performed using one or more of the following dose reduction techniques: Automated exposure control, adjustment of the mA and/or kV according to patient size, and/or use of iterative reconstruction technique. FINDINGS: PULMONARY ARTERIES: Unremarkable. No pulmonary embolism. AORTA: No acute findings. No thoracic aortic aneurysm. LUNGS: New multifocal infiltrates bilaterally affecting the right lung to a greater extent than the left. Stable pulmonary nodules/metastatic disease. PLEURAL SPACES: Unremarkable. No effusion or pneumothorax. HEART: Unremarkable. No cardiomegaly. No significant pericardial effusion. LYMPH NODES: Stable primarily mediastinal adenopathy. BONES, CHEST WALL: Widely disseminated primarily sclerotic metastatic disease visualized thoracolumbar spine. Lytic disease also identified in lower thoracic vertebral bodies. OTHER FINDINGS: Stable hepatic metastatic disease. IMPRESSION: Unremarkable CT pulmonary angiogram. No pulmonary embolus. New multifocal infiltrates superimposed upon pulmonary metastatic disease. Stable hepatic and osseous metastatic disease. Concordant results (preliminary interpretation) provided by [employer]. Procedure Completed: 03:06. Preliminary Report: Dictated and Authenticated: 04:45. Final Interpretation: 08:39.
--- NOTE | 2018-06-21 08:48 | RAD ---
Date of service: 06/21/2018 HISTORY: sob COMPARISON: 06/20/2018 chest x-ray angio chest PE study report June 11 2018 noted FINDINGS: LUNGS: Vague increased linear coalescing opacities in the right upper lung zone-progressive bronchiectasis peribronchial confluent infiltrates compatible with this Lesser interval increased left infrahilar peribronchial thickening-again progressive bronchiectasis peribronchial confluent inflammatory changes compatible with this PLEURA: No significant pleural effusion identified, no pneumothorax apparent. CARDIOVASCULAR: Normal heart size. None sternotomy and coronary artery bypass clips noted OSSEOUS STRUCTURES: Known diffuse osseous metastases blastic and lytic types. VISUALIZED UPPER ABDOMEN: Normal. OTHER FINDINGS: None. IMPRESSION: Interval increased peribronchial/bronchiectatic inflammatory changes most pronounced right upper lobe and to a lesser extent left infrahilar lung base. Other findings as above.
[2018-06-21] MEDS ORDERED: Vancomycin 1 gm/NS 200 ml 1 GM/200 ML BAG IVPB SCH (09:00)
[2018-06-21] MEDS: Potassium Chloride 20 mEq ER Tab PO SCH (10:15)
[2018-06-21] MEDS: Simethicone 80 mg Chewtab PO SCH (10:15)
[2018-06-21] MEDS: Pantoprazole 40 mg EC Tab PO SCH (10:16)
--- NOTE | 2018-06-21 10:30 | CT ---
Date of service: 06/21/2018 PROCEDURE: CT Abdomen and Pelvis with contrast HISTORY: Septic shock COMPARISON: 05/18/2018 TECHNIQUE: Intravenous contrast dose: 100 cc Visipaque 320 Radiation dose: Total exam DLP = 420.47 mGy-cm. This CT exam was performed using one or more of the following dose reduction techniques: Automated exposure control, adjustment of the mA and/or kV according to patient size, and/or use of iterative reconstruction technique. FINDINGS: LOWER THORAX: Multiple small pulmonary nodules incompletely visualized and partially obscured by consolidative changes at the lung bases. The infiltrates are new. LIVER: Widely disseminated hepatic metastatic disease. This is stable compared to 05/18/2018. GALLBLADDER AND BILE DUCTS: Unremarkable. PANCREAS: Multiple masses within the body and head of the pancreas the largest measures 1.5 cm, likely tumor. Adjacent peripancreatic/retroperitoneal adenopathy seen. This is interposed between the aorta aorta and IVC and these vessels at on the pancreas. Additional enlarged lymph nodes periaortic chains and adjacent to the splenic artery. Is SPLEEN: Unremarkable. ADRENALS: Unremarkable. No mass. KIDNEYS AND URETERS: Unremarkable. No hydronephrosis. No solid mass. VASCULATURE: Unremarkable. No aortic aneurysm. BOWEL: Unremarkable. No obstruction. No gross mural thickening. APPENDIX: Normal appendix. PERITONEUM: Trace free fluid identified in the pelvis/. No free air. LYMPH NODES: Retroperitoneal lymphadenopathy described above. BLADDER: Kaufman catheter decompresses the urinary bladder. REPRODUCTIVE: Unremarkable. BONES: Mixed lytic and sclerotic metastatic disease similar to that seen 05/18/2018. OTHER FINDINGS: None. IMPRESSION: New lower lobe infiltrates. Stable tumor burden above and below the diaphragms described in greater detail. This includes hepatic metastatic disease, pancreatic tumor, extensive retroperitoneal adenopathy and widely disseminated lytic and blastic metastatic disease. Concordant results (preliminary interpretation) provided by [facility]. Procedure Completed: 03:06 Preliminary Report: Dictated and Authenticated: 06:01. Final Interpretation: 10:29. June 20, 2018 Concordant results (preliminary interpretation) provided by [facility] [employer]. Procedure Completed: 03:08. Preliminary Report: Dictated and Authenticated: 06:01. Final Interpretation: 10:09.
--- NOTE | 2018-06-21 14:41 | CP.PCM.PN ---
Subjective - Date & Time of Evaluation Date of Evaluation: 06/21/18 Time of Evaluation: 14:41 Objective - Vital Signs/Intake and Output Vital Signs (last 24 hours): Temp Pulse Resp BP Pulse Ox 97.5 F L 109 H 36 H 91/61 L 98 06/21/18 08:00 06/21/18 09:08 06/21/18 09:08 06/21/18 08:34 06/21/18 09:08 Intake and Output: 06/21/18 06/21/18 06:59 18:59 Intake Total 450 150 Output Total 1685 220 Balance -1235 -70 - Medications Medications: Current Medications Albuterol/Ipratropium (Duoneb 3 Mg/0.5 Mg (3 Ml) Ud) 3 ml INH RQ6 [facility] Last Admin: 06/21/18 07:30 Dose: 3 ml Aspirin (Ecotrin) 81 mg PO DAILY [facility] Last Admin: 06/21/18 10:14 Dose: Not Given Chlorpromazine (Thorazine) 25 mg PO QID [facility] Last Admin: 06/21/18 10:17 Dose: Not Given Clopidogrel Bisulfate (Plavix) 75 mg PO DAILY [facility] Last Admin: 06/21/18 10:15 Dose: Not Given Famotidine (Pepcid) 20 mg PO DAILY [facility] Last Admin: 06/21/18 10:15 Dose: Not Given Fentanyl (Duragesic) 1 patch TD Q72H [facility] Last Admin: 06/21/18 14:19 Dose: 1 patch Sodium Chloride (Sodium Chloride 0.9%) 1,000 mls @ 50 mls/hr IV .Q20H [facility] Last Admin: 06/21/18 05:00 Dose: 50 mls/hr Moxifloxacin HCl (Avelox Iv 400mg/250ml Ns) 400 mg in 250 mls @ 167 mls/hr IVPB Q24H [facility]; Protocol Last Admin: 06/20/18 17:00 Dose: 167 mls/hr Meropenem 1 gm/ Sodium (Chloride) 100 mls @ 100 mls/hr IVPB Q8H [facility]IL[facility]; Protocol Last Admin: 06/21/18 10:12 Dose: 100 mls/hr Vancomycin/Sodium Chloride (Vancomycin 1 Gm/Ns 200 Ml) 1 gm in 200 mls @ 133.333 mls/hr IVPB Q12H AWIL[facility]; Protocol Stop: 06/26/18 09:01 Last Admin: 06/21/18 10:12 Dose: 133.333 mls/hr Methylprednisolone (Solu-Medrol) 40 mg IVP Q8 [facility] Last Admin: 06/21/18 06:19 Dose: 40 mg Metoclopramide HCl (Reglan) 5 mg PO DAILY [facility] Last Admin: 06/21/18 10:16 Dose: Not Given Pantoprazole Sodium (Protonix Ec Tab) 40 mg PO DAILY [facility] Last Admin: 06/21/18 10:16 Dose: Not Given Potassium Chloride (K-Dur 20 Meq Er Tab) 40 meq PO BRK [facility] Last Admin: 06/21/18 10:15 Dose: Not Given Rosuvastatin Calcium (Crestor) 20 mg PO HS [facility] Last Admin: 06/20/18 22:53 Dose: Not Given Simethicone (Mylicon Chew Tab) 80 mg PO DAILY [facility] Last Admin: 06/21/18 10:15 Dose: Not Given - Labs Labs: 06/21/18 02:21 06/21/18 02:21 PT 101.0 SECONDS (9.7-12.2) H 06/21/18 02:30 INR 9.2 06/21/18 02:30 APTT 35 SECONDS (21-34) H 06/21/18 02:30 Assessment and Plan (1) SOB (shortness of breath) Status: Acute (2) Small cell lung cancer Status: Acute (3) Hypertension Status: Acute (4) Metastatic cancer to liver Status: Acute (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
[2018-06-21] MEDS: Moxifloxacin IV 400mg/250ml NS 400 MG/250 ML BAG IVPB SCH (15:42)
--- NOTE | 2018-06-21 16:45 | CP.CCUPN ---
CCU Subjective - Physician Review Events Since Last Encounter (Free Text): 06/21/18 16:52 Spoke with daughter about patient's grave prognosis. He has metastatic disease to his brain, liver and bones. His disease is beyond treatment and should be made comfortable; she agreed. We made him DNR/DNI and comfort care. fentanyl patch and morphine prn. Hospice evaluation. Downgrade to the floor for further treatment. CCU Objective - Vital Signs / Intake & Output Vital Signs (Last 4 hours): Vital Signs Pulse Resp BP Pulse Ox 06/21/18 15:00 114 H 90 L 06/21/18 14:08 111 H 24 83/47 L 97 06/21/18 14:00 113 H 20 96 06/21/18 13:08 109 H 28 H 98/48 L 98 06/21/18 13:00 109 H 26 H 97 Intake and Output (Last 8hrs): Intake & Output 06/21/18 06/21/18 06/21/18 06:59 14:59 22:59 Intake Total 450 150 Output Total 1685 220 Balance -1235 -70 Weight 124 lb 8 oz Intake: Intake, IV Amount 450 150 Right Antecubital 450 150 Oral 0 0 Output: Urine 1685 220 Condom 350 Urethral (Kaufman) 1335 220 Emesis 0 Other: # Bowel Movements 1 1 - Medications Active Medications: Active Medications Generic Name Dose Route Start Last Admin Trade Name Freq PRN Reason Stop Dose Admin Fentanyl 1 patch 06/21/18 12:15 06/21/18 14:19 Duragesic TD 1 patch Q72H AWIL[facility] Administration - Patient Studies Lab Studies: Lab Studies 06/21/18 06/21/18 06/21/18 Range/Units 05:56 02:30 02:30 WBC (4.8-10.8) K/uL RBC (4.40-5.90) Mil/uL Hgb (12.0-18.0) g/dL Hct (35.0-51.0) % MCV (80.0-94.0) fL MCH (27.0-31.0) pg MCHC (33.0-37.0) g/dL RDW (11.5-14.5) % Plt Count (130-400) K/uL MPV (7.2-11.7) fL Neutrophils % (Manual) (50-75) % Band Neutrophils % (0-2) % Lymphocytes % (Manual) (20-40) % Monocytes % (Manual) (0-10) % Nucleated RBC % (0-0) % Platelet Estimate (NORMAL) Large Platelets Giant Platelets Polychromasia Anisocytosis (manual) Microcytosis (manual) Macrocytosis (manual) Tear Drop Cells Rouleaux PT 101.0 H (9.7-12.2) SECONDS INR 9.2 APTT 35 H (21-34) SECONDS Puncture Site L br pCO2 20 L (35-45) mm/Hg pO2 336 H (80-100) mm/Hg HCO3 19.3 L (21-28) mmol/L ABG pH 7.46 H (7.35-7.45) ABG Total CO2 14.8 L (22-28) mmol/L ABG O2 Saturation 100.2 H (95-98) % ABG Base Excess -7.3 L (-2.0-3.0) mmol/L Víctor Test Na ABG Potassium 3.7 (3.6-5.2) mmol/L A-a O2 Difference -254.0 mm/Hg Respiratory Index -0.8 Sodium 137.0 (132-148) mmol/l Chloride 115.0 H (98-107) mmol/L Glucose 147 H (75-110) mg/dl Lactate 1.7 (0.7-2.1) mmol/L FiO2 15.0 % Crit Value Called To Crit Value Called By Crit Value Read Back Blood Gas Notified Time Potassium (3.6-5.2) mmol/L Carbon Dioxide (22-30) mmol/L Anion Gap (10-20) BUN (9-20) mg/dL Creatinine (0.8-1.5) mg/dL Est GFR ( Amer) Est GFR (Non-Af Amer) Random Glucose (75-110) mg/dL Calcium (8.6-10.4) mg/dl Phosphorus 5.5 H (2.5-4.5) mg/dL Magnesium 2.0 (1.6-2.3) mg/dL Total Bilirubin (0.2-1.3) mg/dL AST (17-59) U/L ALT (21-72) U/L Alkaline Phosphatase (38-126) U/L Total Protein (6.3-8.3) g/dL Albumin (3.5-5.0) g/dL Globulin (2.2-3.9) gm/dL Albumin/Globulin Ratio (1.0-2.1) Procalcitonin (0.19-0.49) NG/ML Arterial Blood Potassium 3.7 (3.6-5.2) mmol/L Urine Color (YELLOW) Urine Clarity (Clear) Urine pH (5.0-8.0) Ur Specific Stella (1.003-1.030) Urine Protein (NEGATIVE) mg/dL Urine Glucose (UA) (Normal) mg/dL Urine Ketones (NEGATIVE) mg/dL Urine Blood (NEGATIVE) Urine Nitrate (NEGATIVE) Urine Bilirubin (NEGATIVE) Urine Urobilinogen (0.2-1.0) mg/dL Ur Leukocyte Esterase (Negative) Maria Del Rosario/uL Urine WBC (Auto) (0-5) /hpf Urine RBC (Auto) (0-3) /hpf Ur Squamous Epith Cells (0-5) /hpf 06/21/18 06/21/18 06/21/18 Range/Units 02:21 02:21 02:21 WBC (4.8-10.8) K/uL RBC (4.40-5.90) Mil/uL Hgb (12.0-18.0) g/dL Hct (35.0-51.0) % MCV (80.0-94.0) fL MCH (27.0-31.0) pg MCHC (33.0-37.0) g/dL RDW (11.5-14.5) % Plt Count (130-400) K/uL MPV (7.2-11.7) fL Neutrophils % (Manual) (50-75) % Band Neutrophils % (0-2) % Lymphocytes % (Manual) (20-40) % Monocytes % (Manual) (0-10) % Nucleated RBC % (0-0) % Platelet Estimate (NORMAL) Large Platelets Giant Platelets Polychromasia Anisocytosis (manual) Microcytosis (manual) Macrocytosis (manual) Tear Drop Cells Rouleaux PT (9.7-12.2) SECONDS INR APTT (21-34) SECONDS Puncture Site pCO2 (35-45) mm/Hg pO2 (80-100) mm/Hg HCO3 (21-28) mmol/L ABG pH (7.35-7.45) ABG Total CO2 (22-28) mmol/L ABG O2 Saturation (95-98) % ABG Base Excess (-2.0-3.0) mmol/L Víctor Test ABG Potassium (3.6-5.2) mmol/L A-a O2 Difference mm/Hg Respiratory Index Sodium 139 (132-148) mmol/l Chloride 110 H (98-107) mmol/L Glucose (75-110) mg/dl Lactate (0.7-2.1) mmol/L FiO2 % Crit Value Called To Crit Value Called By Crit Value Read Back Blood Gas Notified Time Potassium 4.6 (3.6-5.2) mmol/L Carbon Dioxide 10 L* D (22-30) mmol/L Anion Gap 24 H (10-20) BUN 51 H (9-20) mg/dL Creatinine 1.2 (0.8-1.5) mg/dL Est GFR ( Amer) > 60 Est GFR (Non-Af Amer) > 60 Random Glucose 136 H (75-110) mg/dL Calcium 8.9 (8.6-10.4) mg/dl Phosphorus (2.5-4.5) mg/dL Magnesium (1.6-2.3) mg/dL Total Bilirubin 22.1 H (0.2-1.3) mg/dL AST 626 H D (17-59) U/L ALT 329 H D (21-72) U/L Alkaline Phosphatase 1119 H (38-126) U/L Total Protein 6.1 L (6.3-8.3) g/dL Albumin 2.9 L (3.5-5.0) g/dL Globulin 3.3 (2.2-3.9) gm/dL Albumin/Globulin Ratio 0.9 L (1.0-2.1) Procalcitonin 2.05 H (0.19-0.49) NG/ML Arterial Blood Potassium (3.6-5.2) mmol/L Urine Color Darya (YELLOW) Urine Clarity Hazy (Clear) Urine pH 6.0 (5.0-8.0) Ur Specific Stella 1.017 (1.003-1.030) Urine Protein 1+ H (NEGATIVE) mg/dL Urine Glucose (UA) Normal (Normal) mg/dL Urine Ketones Negative (NEGATIVE) mg/dL Urine Blood Trace H (NEGATIVE) Urine Nitrate Negative (NEGATIVE) Urine Bilirubin 1+ H (NEGATIVE) Urine Urobilinogen Normal (0.2-1.0) mg/dL Ur Leukocyte Esterase Neg (Negative) Maria Del Rosario/uL Urine WBC (Auto) 1 (0-5) /hpf Urine RBC (Auto) < 1 (0-3) /hpf Ur Squamous Epith Cells < 1 (0-5) /hpf 06/21/18 06/21/18 Range/Units 02:21 01:48 WBC 9.1 D (4.8-10.8) K/uL RBC 2.81 L (4.40-5.90) Mil/uL Hgb 8.9 L (12.0-18.0) g/dL Hct 27.5 L (35.0-51.0) % MCV 97.8 H D (80.0-94.0) fL MCH 31.8 H (27.0-31.0) pg MCHC 32.5 L (33.0-37.0) g/dL RDW 17.6 H (11.5-14.5) % Plt Count 121 L D (130-400) K/uL MPV 10.3 (7.2-11.7) fL Neutrophils % (Manual) 84 H (50-75) % Band Neutrophils % 12 H* (0-2) % Lymphocytes % (Manual) 2 L (20-40) % Monocytes % (Manual) 2 (0-10) % Nucleated RBC % 18 H (0-0) % Platelet Estimate Slightly decreased L (NORMAL) Large Platelets Present Giant Platelets Present Polychromasia Moderate Anisocytosis (manual) Moderate Microcytosis (manual) Slight Macrocytosis (manual) Slight Tear Drop Cells Slight Rouleaux Slight PT (9.7-12.2) SECONDS INR APTT (21-34) SECONDS Puncture Site Lba pCO2 19 L* (35-45) mm/Hg pO2 65 L (80-100) mm/Hg HCO3 17.2 L (21-28) mmol/L ABG pH 7.42 (7.35-7.45) ABG Total CO2 12.9 L (22-28) mmol/L ABG O2 Saturation 97.8 (95-98) % ABG Base Excess -9.7 L (-2.0-3.0) mmol/L Víctor Test N/a ABG Potassium 4.2 (3.6-5.2) mmol/L A-a O2 Difference 624.0 mm/Hg Respiratory Index 9.6 Sodium 137.0 (132-148) mmol/l Chloride 111.0 H (98-107) mmol/L Glucose 137 H (75-110) mg/dl Lactate 4.0 H* (0.7-2.1) mmol/L FiO2 100.0 % Crit Value Called To Floor rn Crit Value Called By Shahida medellin Crit Value Read Back Y Blood Gas Notified Time 159 Potassium (3.6-5.2) mmol/L Carbon Dioxide (22-30) mmol/L Anion Gap (10-20) BUN (9-20) mg/dL Creatinine (0.8-1.5) mg/dL Est GFR ( Amer) Est GFR (Non-Af Amer) Random Glucose (75-110) mg/dL Calcium (8.6-10.4) mg/dl Phosphorus (2.5-4.5) mg/dL Magnesium (1.6-2.3) mg/dL Total Bilirubin (0.2-1.3) mg/dL AST (17-59) U/L ALT (21-72) U/L Alkaline Phosphatase (38-126) U/L Total Protein (6.3-8.3) g/dL Albumin (3.5-5.0) g/dL Globulin (2.2-3.9) gm/dL Albumin/Globulin Ratio (1.0-2.1) Procalcitonin (0.19-0.49) NG/ML Arterial Blood Potassium 4.2 (3.6-5.2) mmol/L Urine Color (YELLOW) Urine Clarity (Clear) Urine pH (5.0-8.0) Ur Specific Stella (1.003-1.030) Urine Protein (NEGATIVE) mg/dL Urine Glucose (UA) (Normal) mg/dL Urine Ketones (NEGATIVE) mg/dL Urine Blood (NEGATIVE) Urine Nitrate (NEGATIVE) Urine Bilirubin (NEGATIVE) Urine Urobilinogen (0.2-1.0) mg/dL Ur Leukocyte Esterase (Negative) Maria Del Rosario/uL Urine WBC (Auto) (0-5) /hpf Urine RBC (Auto) (0-3) /hpf Ur Squamous Epith Cells (0-5) /hpf Laboratory Results - last 24 hr 06/21/18 06/21/18 06/21/18 01:48 02:21 02:21 WBC 9.1 D RBC 2.81 L Hgb 8.9 L Hct 27.5 L MCV 97.8 H D MCH 31.8 H MCHC 32.5 L RDW 17.6 H Plt Count 121 L D MPV 10.3 Neutrophils % (Manual) 84 H Band Neutrophils % 12 H* Lymphocytes % (Manual) 2 L Monocytes % (Manual) 2 Nucleated RBC % 18 H Platelet Estimate Slightly decreased L Large Platelets Present Giant Platelets Present Polychromasia Moderate Anisocytosis (manual) Moderate Microcytosis (manual) Slight Macrocytosis (manual) Slight Tear Drop Cells Slight Rouleaux Slight PT INR APTT Puncture Site Lba pCO2 19 L* pO2 65 L HCO3 17.2 L ABG pH 7.42 ABG Total CO2 12.9 L ABG O2 Saturation 97.8 ABG Base Excess -9.7 L Víctor Test N/a ABG Potassium 4.2 A-a O2 Difference 624.0 Respiratory Index 9.6 Sodium 137.0 139 Chloride 111.0 H 110 H Glucose 137 H Lactate 4.0 H* FiO2 100.0 Crit Value Called To Floor rn Crit Value Called By Shahida medellin Crit Value Read Back Y Blood Gas Notified Time 159 Potassium 4.6 Carbon Dioxide 10 L* D Anion Gap 24 H BUN 51 H Creatinine 1.2 Est GFR ( Amer) > 60 Est GFR (Non-Af Amer) > 60 Random Glucose 136 H Calcium 8.9 Phosphorus Magnesium Total Bilirubin 22.1 H AST 626 H D ALT 329 H D Alkaline Phosphatase 1119 H Total Protein 6.1 L Albumin 2.9 L Globulin 3.3 Albumin/Globulin Ratio 0.9 L Procalcitonin Arterial Blood Potassium 4.2 Urine Color Urine Clarity Urine pH Ur Specific Stella Urine Protein Urine Glucose (UA) Urine Ketones Urine Blood Urine Nitrate Urine Bilirubin Urine Urobilinogen Ur Leukocyte Esterase Urine WBC (Auto) Urine RBC (Auto) Ur Squamous Epith Cells 06/21/18 06/21/18 06/21/18 02:21 02:21 02:30 WBC RBC Hgb Hct MCV MCH MCHC RDW Plt Count MPV Neutrophils % (Manual) Band Neutrophils % Lymphocytes % (Manual) Monocytes % (Manual) Nucleated RBC % Platelet Estimate Large Platelets Giant Platelets Polychromasia Anisocytosis (manual) Microcytosis (manual) Macrocytosis (manual) Tear Drop Cells Rouleaux PT 101.0 H INR 9.2 APTT 35 H Puncture Site pCO2 pO2 HCO3 ABG pH ABG Total CO2 ABG O2 Saturation ABG Base Excess Víctor Test ABG Potassium A-a O2 Difference Respiratory Index Sodium Chloride Glucose Lactate FiO2 Crit Value Called To Crit Value Called By Crit Value Read Back Blood Gas Notified Time Potassium Carbon Dioxide Anion Gap BUN Creatinine Est GFR ( Amer) Est GFR (Non-Af Amer) Random Glucose Calcium Phosphorus Magnesium Total Bilirubin AST ALT Alkaline Phosphatase Total Protein Albumin Globulin Albumin/Globulin Ratio Procalcitonin 2.05 H Arterial Blood Potassium Urine Color Darya Urine Clarity Hazy Urine pH 6.0 Ur Specific Stella 1.017 Urine Protein 1+ H Urine Glucose (UA) Normal Urine Ketones Negative Urine Blood Trace H Urine Nitrate Negative Urine Bilirubin 1+ H Urine Urobilinogen Normal Ur Leukocyte Esterase Neg Urine WBC (Auto) 1 Urine RBC (Auto) < 1 Ur Squamous Epith Cells < 1 06/21/18 06/21/18 02:30 05:56 WBC RBC Hgb Hct MCV MCH MCHC RDW Plt Count MPV Neutrophils % (Manual) Band Neutrophils % Lymphocytes % (Manual) Monocytes % (Manual) Nucleated RBC % Platelet Estimate Large Platelets Giant Platelets Polychromasia Anisocytosis (manual) Microcytosis (manual) Macrocytosis (manual) Tear Drop Cells Rouleaux PT INR APTT Puncture Site L br pCO2 20 L pO2 336 H HCO3 19.3 L ABG pH 7.46 H ABG Total CO2 14.8 L ABG O2 Saturation 100.2 H ABG Base Excess -7.3 L Víctor Test Na ABG Potassium 3.7 A-a O2 Difference -254.0 Respiratory Index -0.8 Sodium 137.0 Chloride 115.0 H Glucose 147 H Lactate 1.7 FiO2 15.0 Crit Value Called To Crit Value Called By Crit Value Read Back Blood Gas Notified Time Potassium Carbon Dioxide Anion Gap BUN Creatinine Est GFR ( Amer) Est GFR (Non-Af Amer) Random Glucose Calcium Phosphorus 5.5 H Magnesium 2.0 Total Bilirubin AST ALT Alkaline Phosphatase Total Protein Albumin Globulin Albumin/Globulin Ratio Procalcitonin Arterial Blood Potassium 3.7 Urine Color Urine Clarity Urine pH Ur Specific Stella Urine Protein Urine Glucose (UA) Urine Ketones Urine Blood Urine Nitrate Urine Bilirubin Urine Urobilinogen Ur Leukocyte Esterase Urine WBC (Auto) Urine RBC (Auto) Ur Squamous Epith Cells Fingerstick Blood Sugar Results: 115 Critical Care Progress Note - Nutrition Nutrition: Nutrition Category Date Time Status Heart Healthy Diet [DIET] Diets 06/16/18 Lunch Active Attending/Attestation - Attestation I have personally seen and examined this patient.: Yes I have fully participated in the care of the patient.: Yes I have reviewed all pertinent clinical information: Yes
[2018-06-21] MEDS ORDERED: Sodium Chloride 0.9% 250 ML IV ONE ×3 (17:58→22:47)
--- NOTE | 2018-06-21 19:01 | CP.PCM.PN ---
Subjective - Date & Time of Evaluation Date of Evaluation: 06/21/18 Time of Evaluation: 14:00 - Subjective Subjective: Appears comfortable, family at bedside Objective - Vital Signs/Intake and Output Vital Signs (last 24 hours): Temp Pulse Resp BP Pulse Ox 98 F 114 H 24 83/47 L 90 L 06/21/18 12:00 06/21/18 15:00 06/21/18 14:08 06/21/18 14:08 06/21/18 15:00 Intake and Output: 06/21/18 06/21/18 06:59 18:59 Intake Total 450 150 Output Total 1685 220 Balance -1235 -70 - Medications Medications: Current Medications Fentanyl (Duragesic) 1 patch TD Q72H AWILDA Last Admin: 06/21/18 14:19 Dose: 1 patch - Labs Labs: 06/21/18 02:21 06/21/18 02:21 PT 101.0 SECONDS (9.7-12.2) H 06/21/18 02:30 INR 9.2 06/21/18 02:30 APTT 35 SECONDS (21-34) H 06/21/18 02:30 - Head Exam Head Exam: ATRAUMATIC - Eye Exam Eye Exam: Normal appearance - ENT Exam ENT Exam: Mucous Membranes Dry - Respiratory Exam Respiratory Exam: NORMAL BREATHING PATTERN - Cardiovascular Exam Cardiovascular Exam: +S1, +S2 - GI/Abdominal Exam GI & Abdominal Exam: Normal Bowel Sounds Assessment and Plan (1) Small cell lung cancer Assessment & Plan: stage IV brain, liver, bone mets DNR/DNI family considering hospice. Status: Acute
--- NOTE | 2018-06-21 19:56 | CP.PCM.PN ---
Subjective - Date & Time of Evaluation Date of Evaluation: 06/21/18 Time of Evaluation: 10:30 - Subjective Subjective: clinically same Objective - Vital Signs/Intake and Output Vital Signs (last 24 hours): Temp Pulse Resp BP Pulse Ox 98.9 F 105 H 30 H 81/46 L 98 06/21/18 16:00 06/21/18 18:28 06/21/18 18:28 06/21/18 18:28 06/21/18 18:28 Intake and Output: 06/21/18 06/22/18 18:59 06:59 Intake Total 150 Output Total 220 Balance -70 - Medications Medications: Current Medications Fentanyl (Duragesic) 1 patch TD Q72H [facility] Last Admin: 06/21/18 14:19 Dose: 1 patch - Labs Labs: 06/21/18 02:21 06/21/18 02:21 PT 101.0 SECONDS (9.7-12.2) H 06/21/18 02:30 INR 9.2 06/21/18 02:30 APTT 35 SECONDS (21-34) H 06/21/18 02:30 - Constitutional Appears: Well - Head Exam Head Exam: ATRAUMATIC, NORMAL INSPECTION, NORMOCEPHALIC - Eye Exam Eye Exam: EOMI, Normal appearance, PERRL Pupil Exam: NORMAL ACCOMODATION, PERRL - ENT Exam ENT Exam: Mucous Membranes Moist, Normal Exam - Neck Exam Neck Exam: Full ROM, Normal Inspection. absent: Lymphadenopathy - Respiratory Exam Respiratory Exam: Decreased Breath Sounds - Cardiovascular Exam Cardiovascular Exam: REGULAR RHYTHM, +S1, +S2 - GI/Abdominal Exam GI & Abdominal Exam: Soft, Diminished Bowel Sounds - Rectal Exam Rectal Exam: Deferred
--- NOTE | 2018-06-21 23:07 | CP.PCM.PN ---
Subjective - Date & Time of Evaluation Date of Evaluation: 06/21/18 Time of Evaluation: 15:00 - Subjective Subjective: dictated Objective - Vital Signs/Intake and Output Vital Signs (last 24 hours): Temp Pulse Resp BP Pulse Ox 98.0 F 108 H 27 H 81/46 L 95 06/21/18 20:00 06/21/18 20:00 06/21/18 20:00 06/21/18 18:28 06/21/18 20:00 Intake and Output: 06/21/18 06/22/18 18:59 06:59 Intake Total 150 Output Total 220 Balance -70 - Medications Medications: Current Medications Fentanyl (Duragesic) 1 patch TD Q72H [facility] Last Admin: 06/21/18 14:19 Dose: 1 patch Sodium Chloride (Sodium Chloride 0.9%) 250 mls @ 250 mls/hr IV .Q1H ONE Stop: 06/21/18 23:46 - Labs Labs: 06/21/18 02:21 06/21/18 02:21 PT 101.0 SECONDS (9.7-12.2) H 06/21/18 02:30 INR 9.2 06/21/18 02:30 APTT 35 SECONDS (21-34) H 06/21/18 02:30
[2018-06-22] MEDS ORDERED: Sodium Chloride 0.9% 250 ML IV ONE
[2018-06-22] MEDS: Sodium Chloride 0.9% 1,000 ML IV SCH ×3 (00:45→15:13)
--- NOTE | 2018-06-22 07:43 | PN ---
DATE: 06/21/2018 The patient yesterday seen to have severe increase in the white count, as well as LFTs, and today he was in ICU. The patient was lethargic, he has metastatic disease to the liver. The patient's family had agreed for comfort care hence they were going to put morphine drip and I agree with that. The patient was also placed on strong antibiotics overnight, but nothing has changed since and so, he does have lung cancer with SIADH and liver mets and I agree with the comfort care which the patient's family has decided about. Apple Rasmussen MD
--- NOTE | 2018-06-22 13:17 | CP.PCM.PN ---
Subjective - Date & Time of Evaluation Date of Evaluation: 06/22/18 Time of Evaluation: 12:00 - Subjective Subjective: Lethargic, family at bedside. Objective - Vital Signs/Intake and Output Vital Signs (last 24 hours): Temp Pulse Resp BP Pulse Ox 97.5 F L 98 H 21 74/39 L 97 06/22/18 12:00 06/22/18 12:00 06/22/18 12:00 06/22/18 12:00 06/22/18 12:00 Intake and Output: 06/22/18 06/22/18 06:59 18:59 Intake Total 975 Output Total 300 Balance 675 - Medications Medications: Current Medications Fentanyl (Duragesic) 1 patch TD Q72H [facility] Last Admin: 06/21/18 14:19 Dose: 1 patch Sodium Chloride (Sodium Chloride 0.9%) 1,000 mls @ 75 mls/hr IV .[id number] [facility] Last Admin: 06/22/18 11:28 Dose: 75 mls/hr - Labs Labs: 06/21/18 02:21 06/21/18 02:21 PT 101.0 SECONDS (9.7-12.2) H 06/21/18 02:30 INR 9.2 06/21/18 02:30 APTT 35 SECONDS (21-34) H 06/21/18 02:30 - Head Exam Head Exam: ATRAUMATIC - Eye Exam Eye Exam: Normal appearance - ENT Exam ENT Exam: Mucous Membranes Dry - Respiratory Exam Respiratory Exam: NORMAL BREATHING PATTERN - Cardiovascular Exam Cardiovascular Exam: +S1, +S2 - GI/Abdominal Exam GI & Abdominal Exam: Normal Bowel Sounds Assessment and Plan (1) Small cell lung cancer Assessment & Plan: stage IV brain, liver, bone mets DNR/DNI family considering hospice. Status: Acute
--- NOTE | 2018-06-22 14:59 | CP.PCM.PN ---
Subjective - Date & Time of Evaluation Date of Evaluation: 06/22/18 Time of Evaluation: 12:00 - Subjective Subjective: clinically same Objective - Vital Signs/Intake and Output Vital Signs (last 24 hours): Temp Pulse Resp BP Pulse Ox 97.5 F L 98 H 21 74/39 L 97 06/22/18 12:00 06/22/18 12:00 06/22/18 12:00 06/22/18 12:00 06/22/18 12:00 Intake and Output: 06/22/18 06/22/18 06:59 18:59 Intake Total 975 Output Total 300 Balance 675 - Medications Medications: Current Medications Fentanyl (Duragesic) 1 patch TD Q72H [facility] Last Admin: 06/21/18 14:19 Dose: 1 patch Sodium Chloride (Sodium Chloride 0.9%) 1,000 mls @ 75 mls/hr IV .[id number] [facility] Last Admin: 06/22/18 11:28 Dose: 75 mls/hr Multivitamins/Vitamin C 10 ml/Chromium/Copper/Manganese/Zinc 1 ml/ Amino Acids 1,011 mls @ 42 mls/hr IV .Q24H ONE Stop: 06/23/18 17:59 Fat Emulsion Intravenous (Intralipid 20%) 500 mls @ 42 mls/hr IV MWF@1800 [facility] Stop: 06/28/18 05:55 - Labs Labs: 06/21/18 02:21 06/21/18 02:21 PT 101.0 SECONDS (9.7-12.2) H 06/21/18 02:30 INR 9.2 06/21/18 02:30 APTT 35 SECONDS (21-34) H 06/21/18 02:30 - Constitutional Appears: Well - Head Exam Head Exam: ATRAUMATIC, NORMAL INSPECTION, NORMOCEPHALIC - Eye Exam Eye Exam: EOMI, Normal appearance, PERRL Pupil Exam: NORMAL ACCOMODATION, PERRL - ENT Exam ENT Exam: Mucous Membranes Moist, Normal Exam - Neck Exam Neck Exam: Full ROM, Normal Inspection. absent: Lymphadenopathy - Respiratory Exam Respiratory Exam: Decreased Breath Sounds - Cardiovascular Exam Cardiovascular Exam: REGULAR RHYTHM, +S1, +S2 - GI/Abdominal Exam GI & Abdominal Exam: Soft, Diminished Bowel Sounds - Rectal Exam Rectal Exam: Deferred
--- NOTE | 2018-06-22 17:57 | CP.PCM.PN ---
Subjective - Date & Time of Evaluation Date of Evaluation: 06/22/18 Time of Evaluation: 17:57 Objective - Vital Signs/Intake and Output Vital Signs (last 24 hours): Temp Pulse Resp BP Pulse Ox 97.5 F L 98 H 21 74/39 L 97 06/22/18 12:00 06/22/18 12:00 06/22/18 12:00 06/22/18 12:00 06/22/18 12:00 Intake and Output: 06/22/18 06/22/18 06:59 18:59 Intake Total 975 Output Total 300 Balance 675 - Medications Medications: Current Medications Fentanyl (Duragesic) 1 patch TD Q72H [facility] Last Admin: 06/21/18 14:19 Dose: 1 patch Sodium Chloride (Sodium Chloride 0.9%) 1,000 mls @ 75 mls/hr IV .[id number] [facility] Last Admin: 06/22/18 15:13 Dose: Not Given Multivitamins/Vitamin C 10 ml/Chromium/Copper/Manganese/Zinc 1 ml/ Amino Acids 1,011 mls @ 42 mls/hr IV .Q24H ONE Stop: 06/23/18 17:59 Last Admin: 06/22/18 17:35 Dose: 42 mls/hr Fat Emulsion Intravenous (Intralipid 20%) 500 mls @ 42 mls/hr IV MWF@1800 [facility] Stop: 06/28/18 05:55 Last Admin: 06/22/18 17:40 Dose: 42 mls/hr - Labs Labs: 06/21/18 02:21 06/21/18 02:21 PT 101.0 SECONDS (9.7-12.2) H 06/21/18 02:30 INR 9.2 06/21/18 02:30 APTT 35 SECONDS (21-34) H 06/21/18 02:30 Assessment and Plan (1) SOB (shortness of breath) Status: Acute (2) Small cell lung cancer Status: Acute (3) Hypertension Status: Acute (4) Metastatic cancer to liver Status: Acute (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
[2018-06-22] MEDS ORDERED: Fat Emulsion 20% IV 500 ML IV SCH (18:00)
[2018-06-22] MEDS ORDERED: PPN #1 IV ONE (18:00)
[2018-06-23] MEDS: Sodium Chloride 0.9% 1,000 ML IV SCH ×2 (06:45→14:04)
--- NOTE | 2018-06-23 11:09 | CP.PCM.PN ---
Subjective - Date & Time of Evaluation Date of Evaluation: 06/23/18 Time of Evaluation: 07:00 - Subjective Subjective: clinically sme Objective - Vital Signs/Intake and Output Vital Signs (last 24 hours): Temp Pulse Resp BP Pulse Ox 97.4 F L 108 H 20 72/43 L 98 06/23/18 08:12 06/23/18 08:12 06/23/18 08:12 06/23/18 08:12 06/23/18 08:12 Intake and Output: 06/23/18 06/23/18 06:59 18:59 Intake Total 1961 Output Total 100 Balance 1861 - Medications Medications: Current Medications Fentanyl (Duragesic) 1 patch TD Q72H [facility] Last Admin: 06/21/18 14:19 Dose: 1 patch Sodium Chloride (Sodium Chloride 0.9%) 1,000 mls @ 75 mls/hr IV .[id number] [facility] Last Admin: 06/23/18 06:45 Dose: Not Given Multivitamins/Vitamin C 10 ml/Chromium/Copper/Manganese/Zinc 1 ml/ Amino Acids 1,011 mls @ 42 mls/hr IV .Q24H ONE Stop: 06/23/18 17:59 Last Admin: 06/22/18 17:35 Dose: 42 mls/hr Fat Emulsion Intravenous (Intralipid 20%) 500 mls @ 42 mls/hr IV MWF@1800 [facility] Stop: 06/28/18 05:55 Last Admin: 06/22/18 17:40 Dose: 42 mls/hr - Labs Labs: 06/21/18 02:21 06/21/18 02:21 PT 101.0 SECONDS (9.7-12.2) H 06/21/18 02:30 INR 9.2 06/21/18 02:30 APTT 35 SECONDS (21-34) H 06/21/18 02:30 - Constitutional Appears: Well - Head Exam Head Exam: ATRAUMATIC, NORMAL INSPECTION, NORMOCEPHALIC - Eye Exam Eye Exam: EOMI, Normal appearance, PERRL Pupil Exam: NORMAL ACCOMODATION, PERRL - ENT Exam ENT Exam: Mucous Membranes Moist, Normal Exam - Neck Exam Neck Exam: Full ROM, Normal Inspection. absent: Lymphadenopathy - Respiratory Exam Respiratory Exam: Decreased Breath Sounds - Cardiovascular Exam Cardiovascular Exam: REGULAR RHYTHM, +S1, +S2 - GI/Abdominal Exam GI & Abdominal Exam: Soft, Diminished Bowel Sounds - Rectal Exam Rectal Exam: Deferred
--- NOTE | 2018-06-23 17:45 | CP.PCM.PN ---
Subjective - Date & Time of Evaluation Date of Evaluation: 06/23/18 Objective - Vital Signs/Intake and Output Vital Signs (last 24 hours): Temp Pulse Resp BP Pulse Ox 98.6 F 109 H 20 90/40 L 97 06/23/18 16:39 06/23/18 16:39 06/23/18 16:39 06/23/18 16:39 06/23/18 16:39 Intake and Output: 06/23/18 06/23/18 06:59 18:59 Intake Total 1961 1056 Output Total 100 200 Balance 1861 856 - Medications Medications: Current Medications Fentanyl (Duragesic) 1 patch TD Q72H [facility] Last Admin: 06/21/18 14:19 Dose: 1 patch Sodium Chloride (Sodium Chloride 0.9%) 1,000 mls @ 75 mls/hr IV .[id number] [facility] Last Admin: 06/23/18 14:04 Dose: 75 mls/hr Multivitamins/Vitamin C 10 ml/Chromium/Copper/Manganese/Zinc 1 ml/ Amino Acids 1,011 mls @ 42 mls/hr IV .Q24H ONE Stop: 06/23/18 17:59 Last Admin: 06/22/18 17:35 Dose: 42 mls/hr Fat Emulsion Intravenous (Intralipid 20%) 500 mls @ 42 mls/hr IV MWF@1800 [facility] Stop: 06/28/18 05:55 Last Admin: 06/22/18 17:40 Dose: 42 mls/hr Multivitamins/Vitamin C 10 ml/Chromium/Copper/Manganese/Zinc 1 ml/ Amino Acids 1,011 mls @ 42 mls/hr IV .Q24H [facility] Stop: 06/24/18 17:59 Last Admin: 06/23/18 17:34 Dose: 42 mls/hr - Labs Labs: 06/21/18 02:21 06/21/18 02:21 PT 101.0 SECONDS (9.7-12.2) H 06/21/18 02:30 INR 9.2 06/21/18 02:30 APTT 35 SECONDS (21-34) H 06/21/18 02:30 Assessment and Plan (1) SOB (shortness of breath) Status: Acute (2) Small cell lung cancer Status: Acute (3) Hypertension Status: Acute (4) Metastatic cancer to liver Status: Acute (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
[2018-06-23] MEDS ORDERED: PPN #2 IV ONE (18:00)
[2018-06-24] MEDS: Sodium Chloride 0.9% 1,000 ML IV SCH ×2 (03:49→16:56)
--- NOTE | 2018-06-24 14:31 | CP.PCM.PN ---
Subjective - Date & Time of Evaluation Date of Evaluation: 06/24/18 Time of Evaluation: 09:00 - Subjective Subjective: clinically same Objective - Vital Signs/Intake and Output Vital Signs (last 24 hours): Temp Pulse Resp BP Pulse Ox 99.2 F 116 H 23 100/46 L 97 06/24/18 07:20 06/24/18 07:20 06/24/18 07:20 06/24/18 07:20 06/24/18 07:20 Intake and Output: 06/24/18 06/24/18 06:59 18:59 Intake Total 1721 Output Total 200 Balance 1521 - Medications Medications: Current Medications Fentanyl (Duragesic) 1 patch TD Q72H [facility] Last Admin: 06/24/18 12:29 Dose: 1 patch Sodium Chloride (Sodium Chloride 0.9%) 1,000 mls @ 75 mls/hr IV .[id number] [facility] Last Admin: 06/24/18 03:49 Dose: 75 mls/hr Fat Emulsion Intravenous (Intralipid 20%) 500 mls @ 42 mls/hr IV MWF@1800 [facility] Stop: 06/28/18 05:55 Last Admin: 06/22/18 17:40 Dose: 42 mls/hr Multivitamins/Vitamin C 10 ml/Chromium/Copper/Manganese/Zinc 1 ml/ Amino Acids 1,011 mls @ 42 mls/hr IV .Q24H ONE Stop: 06/24/18 17:59 Last Admin: 06/23/18 17:34 Dose: 42 mls/hr Chromium/Copper/Manganese/Zinc (1 ml/ Amino Acids) 1,001 mls @ 42 mls/hr IV .[id number] [facility] Stop: 06/25/18 17:49 - Labs Labs: 06/21/18 02:21 06/21/18 02:21 PT 101.0 SECONDS (9.7-12.2) H 06/21/18 02:30 INR 9.2 06/21/18 02:30 APTT 35 SECONDS (21-34) H 06/21/18 02:30 - Constitutional Appears: Well - Head Exam Head Exam: ATRAUMATIC, NORMAL INSPECTION, NORMOCEPHALIC - Eye Exam Eye Exam: EOMI, Normal appearance, PERRL Pupil Exam: NORMAL ACCOMODATION, PERRL - ENT Exam ENT Exam: Mucous Membranes Moist, Normal Exam - Neck Exam Neck Exam: Full ROM, Normal Inspection. absent: Lymphadenopathy - Respiratory Exam Respiratory Exam: Decreased Breath Sounds - Cardiovascular Exam Cardiovascular Exam: REGULAR RHYTHM, +S1, +S2 - GI/Abdominal Exam GI & Abdominal Exam: Soft, Diminished Bowel Sounds - Rectal Exam Rectal Exam: Deferred
[2018-06-24] MEDS ORDERED: PPN #3 IV ONE (18:00)
--- NOTE | 2018-06-24 21:32 | CP.PCM.PN ---
Subjective - Date & Time of Evaluation Date of Evaluation: 06/23/18 Time of Evaluation: 12:00 - Subjective Subjective: Lethargic, family at bedside. Objective - Vital Signs/Intake and Output Vital Signs (last 24 hours): Temp Pulse Resp BP Pulse Ox 99.1 F 111 H 20 93/46 L 96 06/24/18 20:54 06/24/18 20:54 06/24/18 20:54 06/24/18 20:54 06/24/18 17:09 Intake and Output: 06/24/18 06/25/18 18:59 06:59 Intake Total 576 Output Total 100 Balance 476 - Medications Medications: Current Medications Fentanyl (Duragesic) 1 patch TD Q72H [facility] Last Admin: 06/24/18 12:29 Dose: 1 patch Sodium Chloride (Sodium Chloride 0.9%) 1,000 mls @ 75 mls/hr IV .[id number] [facility] Last Admin: 06/24/18 16:56 Dose: 75 mls/hr Chromium/Copper/Manganese/Zinc (1 ml/ Amino Acids) 1,001 mls @ 42 mls/hr IV .[id number] ONE Stop: 06/25/18 17:49 Last Admin: 06/24/18 17:10 Dose: 42 mls/hr - Labs Labs: 06/21/18 02:21 06/21/18 02:21 PT 101.0 SECONDS (9.7-12.2) H 06/21/18 02:30 INR 9.2 06/21/18 02:30 APTT 35 SECONDS (21-34) H 06/21/18 02:30 - Head Exam Head Exam: ATRAUMATIC - Eye Exam Eye Exam: Normal appearance - ENT Exam ENT Exam: Mucous Membranes Dry - Respiratory Exam Respiratory Exam: NORMAL BREATHING PATTERN - Cardiovascular Exam Cardiovascular Exam: +S1, +S2 - GI/Abdominal Exam GI & Abdominal Exam: Normal Bowel Sounds Assessment and Plan (1) Small cell lung cancer Assessment & Plan: stage IV brain, liver, bone mets DNR/DNI family considering hospice. Status: Acute
--- NOTE | 2018-06-24 21:33 | CP.PCM.PN ---
Subjective - Date & Time of Evaluation Date of Evaluation: 06/24/18 Time of Evaluation: 20:00 - Subjective Subjective: lethargic, family at bedside Objective - Vital Signs/Intake and Output Vital Signs (last 24 hours): Temp Pulse Resp BP Pulse Ox 99.1 F 111 H 20 93/46 L 96 06/24/18 20:54 06/24/18 20:54 06/24/18 20:54 06/24/18 20:54 06/24/18 17:09 Intake and Output: 06/24/18 06/25/18 18:59 06:59 Intake Total 576 Output Total 100 Balance 476 - Medications Medications: Current Medications Fentanyl (Duragesic) 1 patch TD Q72H [facility] Last Admin: 06/24/18 12:29 Dose: 1 patch Sodium Chloride (Sodium Chloride 0.9%) 1,000 mls @ 75 mls/hr IV .[id number] [facility] Last Admin: 06/24/18 16:56 Dose: 75 mls/hr Chromium/Copper/Manganese/Zinc (1 ml/ Amino Acids) 1,001 mls @ 42 mls/hr IV .[id number] ONE Stop: 06/25/18 17:49 Last Admin: 06/24/18 17:10 Dose: 42 mls/hr - Labs Labs: 06/21/18 02:21 06/21/18 02:21 PT 101.0 SECONDS (9.7-12.2) H 06/21/18 02:30 INR 9.2 06/21/18 02:30 APTT 35 SECONDS (21-34) H 06/21/18 02:30 - Head Exam Head Exam: ATRAUMATIC - Eye Exam Eye Exam: Normal appearance - ENT Exam ENT Exam: Mucous Membranes Dry - Respiratory Exam Respiratory Exam: NORMAL BREATHING PATTERN - Cardiovascular Exam Cardiovascular Exam: +S1, +S2 - GI/Abdominal Exam GI & Abdominal Exam: Normal Bowel Sounds Assessment and Plan (1) Small cell lung cancer Assessment & Plan: stage IV brain, liver, bone mets DNR/DNI family considering hospice. Status: Acute
[2018-06-25] MEDS: Sodium Chloride 0.9% 1,000 ML IV SCH ×3 (05:25→22:39)
[2018-06-25 14:26] LABS: ALB/GLOB RATIO 0.7 (1.0-2.1); ALBUMIN 2.1 g/dL (3.5-5.0); CALCIUM 8.7 mg/dl (8.6-10.4)
[2018-06-25 14:47] LABS: EOS # 0.1 K/uL (0.0-0.7); RBC 1.62 Mil/uL (4.40-5.90)
[2018-06-25 14:57] LABS: BASO % 0.4 % (0.0-2.0); EOS % 0.7 % (0.0-4.0); LYMPH # 4.2 K/uL (1.0-4.3); LYMPH % 42.5 % (20.0-40.0); MEAN CORPUSCULAR HEMOGLOBIN 32.4 pg (27.0-31.0); MEAN CORPUSCULAR HGB CONC 31.6 g/dL (33.0-37.0); MEAN PLATELET VOLUME 11.5 fL (7.2-11.7); MONO # 0.9 K/uL (0.0-0.8); MONO % 9.1 % (0.0-10.0); NEUT # 4.7 K/uL (1.8-7.0); NEUT % 47.3 % (50.0-75.0); NRBC % 27.4 % (0.0-2.0); WHITE BLOOD COUNT 9.9 K/uL (4.8-10.8)
[2018-06-25 15:00] LABS: ALB/GLOB RATIO 0.7 (1.0-2.1); ALBUMIN 2.2 g/dL (3.5-5.0); CALCIUM 8.6 mg/dl (8.6-10.4)
[2018-06-25 15:01] LABS: HEMOGLOBIN 5.2 g/dL (12.0-18.0); MEAN CELL VOLUME 102.8 fL (80.0-94.0); PLATELET COUNT 57 K/uL (130-400)
[2018-06-25 15:39] LABS: ANISOCYTOSIS SLIGHT; LYMPHOCYTE 8 % (20-40); MONOCYTE 4 % (0-10); NEUTROPHIL 88 % (50-75); NUCLEATED RED BLOOD CELL 25 % (0-0); PLATELET ESTIMATE DECREASED (NORMAL); TOTAL CELLS COUNTED 100
[2018-06-25 15:40] LABS: HYPOCHROMIC SLIGHT; POLYCHROMIC SLIGHT
[2018-06-25] MEDS ORDERED: Dextrose 5%/0.45% NS 1,000 ML IV SCH (17:15)
[2018-06-25] MEDS ORDERED: Sodium Bicarbonate (8.4%) 50 Meq Syringe IVP ONE (17:18)
[2018-06-25] MEDS ORDERED: PPN#4 IV ONE (18:00)
[2018-06-25] MEDS ORDERED: Fat Emulsion 20% IV 500 ML IV SCH (18:00)
--- NOTE | 2018-06-25 18:21 | CP.PCM.PN ---
Subjective - Date & Time of Evaluation Date of Evaluation: 06/25/18 Time of Evaluation: 08:30 - Subjective Subjective: clinically same Objective - Vital Signs/Intake and Output Vital Signs (last 24 hours): Temp Pulse Resp BP Pulse Ox 98.4 F 100 H 26 H 60/43 L 96 06/25/18 17:20 06/25/18 17:20 06/25/18 17:20 06/25/18 17:20 06/25/18 17:20 Intake and Output: 06/25/18 06/25/18 06:59 18:59 Intake Total 1626 Output Total 250 Balance 1376 - Medications Medications: Current Medications Fentanyl (Duragesic) 1 patch TD Q72H [facility] Last Admin: 06/24/18 12:29 Dose: 1 patch Chromium/Copper/Manganese/Zinc 1 ml/ Multivitamins/Vitamin C 10 ml/ Amino Acids 1,011 mls @ 42 mls/hr IV .Q24H ONE Stop: 06/26/18 17:59 Last Admin: 06/25/18 17:55 Dose: 42 mls/hr Fat Emulsion Intravenous (Intralipid 20%) 500 mls @ 42 mls/hr IV MWF@1800 [facility] Stop: 06/28/18 05:55 Last Admin: 06/25/18 17:55 Dose: 42 mls/hr Dextrose/Sodium Chloride (Dextrose 5%/0.45% Ns 1000 Ml) 1,000 mls @ 70 mls/hr IV .[id number] [facility] Last Admin: 06/25/18 17:55 Dose: 70 mls/hr - Labs Labs: 06/25/18 14:43 06/25/18 14:39 PT 101.0 SECONDS (9.7-12.2) H 06/21/18 02:30 INR 9.2 06/21/18 02:30 APTT 35 SECONDS (21-34) H 06/21/18 02:30
--- NOTE | 2018-06-25 18:24 | CP.PCM.PN ---
Subjective - Date & Time of Evaluation Date of Evaluation: 06/25/18 Time of Evaluation: 18:24 Objective - Vital Signs/Intake and Output Vital Signs (last 24 hours): Temp Pulse Resp BP Pulse Ox 98.4 F 100 H 26 H 60/43 L 96 06/25/18 17:20 06/25/18 17:20 06/25/18 17:20 06/25/18 17:20 06/25/18 17:20 Intake and Output: 06/25/18 06/25/18 06:59 18:59 Intake Total 1626 Output Total 250 Balance 1376 - Medications Medications: Current Medications Fentanyl (Duragesic) 1 patch TD Q72H [facility] Last Admin: 06/24/18 12:29 Dose: 1 patch Chromium/Copper/Manganese/Zinc 1 ml/ Multivitamins/Vitamin C 10 ml/ Amino Acids 1,011 mls @ 42 mls/hr IV .Q24H [facility] Stop: 06/26/18 17:59 Last Admin: 06/25/18 17:55 Dose: 42 mls/hr Fat Emulsion Intravenous (Intralipid 20%) 500 mls @ 42 mls/hr IV MWF@1800 [facility] Stop: 06/28/18 05:55 Last Admin: 06/25/18 17:55 Dose: 42 mls/hr Dextrose/Sodium Chloride (Dextrose 5%/0.45% Ns 1000 Ml) 1,000 mls @ 70 mls/hr IV .[id number] [facility] Last Admin: 06/25/18 17:55 Dose: 70 mls/hr - Labs Labs: 06/25/18 14:43 06/25/18 14:39 PT 101.0 SECONDS (9.7-12.2) H 06/21/18 02:30 INR 9.2 06/21/18 02:30 APTT 35 SECONDS (21-34) H 06/21/18 02:30 Assessment and Plan (1) SOB (shortness of breath) Status: Acute (2) Small cell lung cancer Status: Acute (3) Hypertension Status: Acute (4) Metastatic cancer to liver Status: Acute (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
--- NOTE | 2018-06-25 18:37 | CP.PCM.CON ---
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 Per the patients daughter, he went to [facility] and was doing well. On his return, he became weak and stopped talking. He currently makes no verbal or phydsical response to stimuli. pt on mask O2 in hospice care. Past medical history: HTN, GERD, HL, CAD s/p CABG. Past surgical history: Denies. Family history: Denies hematologic and oncologic problems Social histoy: smokes 2 cigs daily x 50 years, former alcohol abuse. Allergies: NKA Review of systems: All remaining review of systems including HEENT, cardiovascular, respiratory, gastrointestinal, genitourinary, musculoskeletal, dermatologic, neurologic, and psychiatric are negative unless mentioned in the HPI. Review of Systems - Review of Systems Systems not reviewed;Unavailable: Acuity of Condition Past Patient History - Infectious Disease Hx of Infectious Diseases: None - Past Medical History & Family History Past Medical History?: Yes - Past Social History Smoking Status: Never Smoked - CARDIAC Hx Hypercholesterolemia: Yes Hx Hypertension: Yes - PULMONARY Hx Respiratory Disorders: Yes Hx Lung Cancer: Yes - NEUROLOGICAL Hx Neurological Disorder: No Hx Paralysis: No - HEENT Hx HEENT Problems: No - RENAL Hx Chronic Kidney Disease: No - ENDOCRINE/METABOLIC Hx Endocrine Disorders: No - HEMATOLOGICAL/ONCOLOGICAL Hx Anemia: Yes - INTEGUMENTARY Hx Dermatological Problems: Yes - MUSCULOSKELETAL/RHEUMATOLOGICAL Hx Arthritis: Yes (HX OF B/L HIP PAIN L>R) - GASTROINTESTINAL Hx Gastritis: Yes - GENITOURINARY/GYNECOLOGICAL Hx Genitourinary Disorders: No - PSYCHIATRIC Hx Anxiety: Yes Hx Substance Use: No - SURGICAL HISTORY Hx Coronary Artery Bypass Graft: Yes - ANESTHESIA Hx Anesthesia: Yes Hx Anesthesia Reactions: No Hx Malignant Hyperthermia: No Meds Allergies/Adverse Reactions: Allergies Allergy/AdvReac Type Severity Reaction Status Date / Time No Known Allergies Allergy Verified 06/11/18 09:31 - Medications Medications: Current Medications Fentanyl (Duragesic) 1 patch TD Q72H [facility] Last Admin: 06/24/18 12:29 Dose: 1 patch Chromium/Copper/Manganese/Zinc 1 ml/ Multivitamins/Vitamin C 10 ml/ Amino Acids 1,011 mls @ 42 mls/hr IV .Q24H ONE Stop: 06/26/18 17:59 Last Admin: 06/25/18 17:55 Dose: 42 mls/hr Fat Emulsion Intravenous (Intralipid 20%) 500 mls @ 42 mls/hr IV MWF@1800 [facility] Stop: 06/28/18 05:55 Last Admin: 06/25/18 17:55 Dose: 42 mls/hr Dextrose/Sodium Chloride (Dextrose 5%/0.45% Ns 1000 Ml) 1,000 mls @ 70 mls/hr IV .[id number] [facility] Last Admin: 06/25/18 17:55 Dose: 70 mls/hr Physical Exam - Constitutional Appears: In Acute Distress, Cachectic - Head Exam Head Exam: ATRAUMATIC, NORMAL INSPECTION - Respiratory Exam Respiratory Exam: Respiratory Distress - Cardiovascular Exam Cardiovascular Exam: REGULAR RHYTHM - GI/Abdominal Exam GI & Abdominal Exam: Organomegaly (liver) - Neurological Exam Neurological exam: Altered (unresponsive) Results - Vital Signs Recent Vital Signs: Last Vital Signs Temp 98.4 F 06/25/18 17:20 Pulse 97 H 06/25/18 18:10 Resp 27 H 06/25/18 18:10 BP 53/32 L 06/25/18 18:10 Pulse Ox 93 L 06/25/18 18:10 - Labs Result Diagrams: 06/25/18 14:43 06/25/18 14:39 Labs: Laboratory Results - last 24 hr 06/25/18 06/25/18 06/25/18 13:45 14:39 14:43 WBC 9.9 RBC 1.62 L Hgb 5.2 L* D Hct 16.6 L MCV 102.8 H D MCH 32.4 H MCHC 31.6 L RDW 20.0 H Plt Count 57 L D MPV 11.5 Neut % (Auto) 47.3 L Lymph % (Auto) 42.5 H [place] % (Auto) 9.1 Eos % (Auto) 0.7 Baso % (Auto) 0.4 Neut # (Auto) 4.7 Lymph # (Auto) 4.2 [place] # (Auto) 0.9 H Eos # (Auto) 0.1 Baso # (Auto) 0.0 Neutrophils % (Manual) 88 H Lymphocytes % (Manual) 8 L Monocytes % (Manual) 4 Nucleated RBC % 25 H Platelet Estimate Decreased L Polychromasia Slight Hypochromasia (manual) Slight Anisocytosis (manual) Slight Macrocytosis (manual) Slight Sodium 147 148 Potassium 5.7 H 5.8 H Chloride 124 H 125 H Carbon Dioxide 5 L* D 5 L* Anion Gap 23 H 24 H BUN 115 H* D 118 H* Creatinine 4.5 H 4.4 H Est GFR ( Amer) 16 16 Est GFR (Non-Af Amer) 13 14 Random Glucose 86 84 Calcium 8.7 8.6 Phosphorus 8.2 H Magnesium 2.3 Total Bilirubin 24.2 H 25.2 H AST 458 H D 477 H ALT 184 H D 186 H Alkaline Phosphatase 1180 H 1197 H Total Protein 5.1 L 5.2 L Albumin 2.1 L D 2.2 L Globulin 3.0 3.0 Albumin/Globulin Ratio 0.7 L 0.7 L Assessment & Plan - Assessment and Plan (Free Text) Assessment: 63 yo male with metastatic stage 4 small cell CA Family agrees to maintain DNR/DNI Pt will recieve one unit of PRBCs for possible symptpomatric relief due to anemia Pt will not be trasferred to ICU No contract law specialist intervention at this time <Payam Winslow - Last Filed: 06/26/18 08:22> Meds - Medications Medications: Current Medications Fentanyl (Duragesic) 1 patch TD Q72H [facility] Last Admin: 06/24/18 12:29 Dose: 1 patch Chromium/Copper/Manganese/Zinc 1 ml/ Multivitamins/Vitamin C 10 ml/ Amino Acids 1,011 mls @ 42 mls/hr IV .Q24H ONE Stop: 06/26/18 17:59 Last Admin: 06/25/18 17:55 Dose: 42 mls/hr Fat Emulsion Intravenous (Intralipid 20%) 500 mls @ 42 mls/hr IV MWF@1800 [facility] Stop: 06/28/18 05:55 Last Admin: 06/25/18 17:55 Dose: 42 mls/hr Phenylephrine HCl 60 mg/ (Dextrose) 500 mls @ 10 mls/hr IV .Q24H PRN; Protocol PRN Reason: TITRATE PER MD ORDER Last Admin: 06/26/18 06:30 Dose: 150 mcg/min, 75 mls/hr Sodium Bicarbonate 150 ml/ (Dextrose/Sodium Chloride) 1,150 mls @ 50 mls/hr IV .Q23H [facility] Last Admin: 06/26/18 02:10 Dose: 50 mls/hr Vasopressin 40 units/ Dextrose 42 mls @ 0.63 mls/hr IV .Q24H [facility]; Protocol Last Admin: 06/26/18 02:09 Dose: 0.04 units/min, 2.52 mls/hr Results - Vital Signs Recent Vital Signs: Last Vital Signs Temp 100 F H 06/26/18 08:00 Pulse 97 H 06/26/18 08:00 Resp 27 H 06/26/18 08:00 BP 112/62 06/26/18 07:47 Pulse Ox 95 06/26/18 08:00 - Labs Result Diagrams: 06/26/18 05:48 06/26/18 06:03 Labs: Laboratory Results - last 24 hr 06/25/18 06/25/18 06/25/18 13:45 14:39 14:43 WBC 9.9 RBC 1.62 L Hgb 5.2 L* D Hct 16.6 L MCV 102.8 H D MCH 32.4 H MCHC 31.6 L RDW 20.0 H Plt Count 57 L D MPV 11.5 Neut % (Auto) 47.3 L Lymph % (Auto) 42.5 H [place] % (Auto) 9.1 Eos % (Auto) 0.7 Baso % (Auto) 0.4 Neut # (Auto) 4.7 Lymph # (Auto) 4.2 [place] # (Auto) 0.9 H Eos # (Auto) 0.1 Baso # (Auto) 0.0 Neutrophils % (Manual) 88 H Lymphocytes % (Manual) 8 L Monocytes % (Manual) 4 Nucleated RBC % 25 H Platelet Estimate Decreased L Polychromasia Slight Hypochromasia (manual) Slight Anisocytosis (manual) Slight Macrocytosis (manual) Slight Puncture Site pCO2 pO2 HCO3 ABG pH ABG Total CO2 ABG O2 Saturation ABG Base Excess ABG Hemoglobin ABG Carboxyhemoglobin POC ABG HHb (Measured) ABG Methemoglobin Víctor Test ABG Potassium A-a O2 Difference Respiratory Index Hgb O2 Saturation Glucose Lactate Vent Mode Mechanical Rate FiO2 Tidal Volume PEEP Crit Value Called To Crit Value Called By Crit Value Read Back Blood Gas Notified Time Sodium 147 148 Potassium 5.7 H 5.8 H Chloride 124 H 125 H Carbon Dioxide 5 L* D 5 L* Anion Gap 23 H 24 H BUN 115 H* D 118 H* Creatinine 4.5 H 4.4 H Est GFR ( Amer) 16 16 Est GFR (Non-Af Amer) 13 14 POC Glucose (mg/dL) Random Glucose 86 84 Calcium 8.7 8.6 Phosphorus 8.2 H Magnesium 2.3 Total Bilirubin 24.2 H 25.2 H AST 458 H D 477 H ALT 184 H D 186 H Alkaline Phosphatase 1180 H 1197 H Total Protein 5.1 L 5.2 L Albumin 2.1 L D 2.2 L Globulin 3.0 3.0 Albumin/Globulin Ratio 0.7 L 0.7 L Arterial Blood Potassium Blood Type Antibody Screen 06/25/18 06/25/18 06/25/18 18:28 18:28 19:45 WBC 9.0 RBC 1.42 L Hgb 5.0 L* Hct 14.8 L MCV 103.7 H MCH 34.9 H MCHC 33.6 RDW 20.1 H Plt Count 52 L MPV 11.2 Neut % (Auto) 94.0 H Lymph % (Auto) 3.0 L [place] % (Auto) 2.0 Eos % (Auto) 1.0 Baso % (Auto) 0.0 Neut # (Auto) 8.5 H Lymph # (Auto) 0.3 L [place] # (Auto) 0.2 Eos # (Auto) 0.1 Baso # (Auto) 0.0 Neutrophils % (Manual) Lymphocytes % (Manual) Monocytes % (Manual) Nucleated RBC % Platelet Estimate Polychromasia Hypochromasia (manual) Anisocytosis (manual) Macrocytosis (manual) Puncture Site pCO2 pO2 HCO3 ABG pH ABG Total CO2 ABG O2 Saturation ABG Base Excess ABG Hemoglobin ABG Carboxyhemoglobin POC ABG HHb (Measured) ABG Methemoglobin Víctor Test ABG Potassium A-a O2 Difference Respiratory Index Hgb O2 Saturation Glucose Lactate Vent Mode Mechanical Rate FiO2 Tidal Volume PEEP Crit Value Called To Crit Value Called By Crit Value Read Back Blood Gas Notified Time Sodium Potassium Chloride Carbon Dioxide Anion Gap BUN Creatinine Est GFR ( Amer) Est GFR (Non-Af Amer) POC Glucose (mg/dL) 57 L Random Glucose Calcium Phosphorus Magnesium Total Bilirubin AST ALT Alkaline Phosphatase Total Protein Albumin Globulin Albumin/Globulin Ratio Arterial Blood Potassium Blood Type A POSITIVE Antibody Screen Negative 06/26/18 06/26/18 06/26/18 00:05 00:16 05:20 WBC RBC Hgb Hct MCV MCH MCHC RDW Plt Count MPV Neut % (Auto) Lymph % (Auto) [place] % (Auto) Eos % (Auto) Baso % (Auto) Neut # (Auto) Lymph # (Auto) [place] # (Auto) Eos # (Auto) Baso # (Auto) Neutrophils % (Manual) Lymphocytes % (Manual) Monocytes % (Manual) Nucleated RBC % Platelet Estimate Polychromasia Hypochromasia (manual) Anisocytosis (manual) Macrocytosis (manual) Puncture Site L brac R brac pCO2 28 L 24 L pO2 111 H 327 H HCO3 2.3 L* 9.6 L* ABG pH 6.83 L* 7.12 L* ABG Total CO2 5.6 L 8.5 L ABG O2 Saturation 100.1 H 101.8 H ABG Base Excess -28.8 L -19.7 L ABG Hemoglobin 5.7 L ABG Carboxyhemoglobin 0.6 POC ABG HHb (Measured) -1.7 L ABG Methemoglobin 3.7 H Víctor Test Na Na ABG Potassium 6.6 H* A-a O2 Difference 567.0 356.0 Respiratory Index 5.1 1.1 Hgb O2 Saturation 97.4 Glucose 122 H Lactate 9.6 H* Vent Mode Prvc Prvc Mechanical Rate 16 22 FiO2 100.0 100.0 Tidal Volume 500 500 PEEP 5 5 Crit Value Called To [place] agosto apiculture teacher [place] apiculture teacher Crit Value Called By Jossie noonan rt Jossie noonan rt Crit Value Read Back Y Y Blood Gas Notified Time 25 552 Sodium 146.0 Potassium Chloride 124.0 H Carbon Dioxide Anion Gap BUN Creatinine Est GFR ( Amer) Est GFR (Non-Af Amer) POC Glucose (mg/dL) 124 H Random Glucose Calcium Phosphorus Magnesium Total Bilirubin AST ALT Alkaline Phosphatase Total Protein Albumin Globulin Albumin/Globulin Ratio Arterial Blood Potassium 6.6 H* Blood Type Antibody Screen 06/26/18 06/26/18 06/26/18 05:48 05:49 06:03 WBC 11.7 H RBC 1.95 L Hgb 12.3 D Hct 18.9 L MCV 97.0 H D MCH 63.2 H MCHC 65.2 H RDW 22.6 H Plt Count 44 L MPV 10.0 Neut % (Auto) Lymph % (Auto) [place] % (Auto) Eos % (Auto) Baso % (Auto) Neut # (Auto) Lymph # (Auto) [place] # (Auto) Eos # (Auto) Baso # (Auto) Neutrophils % (Manual) Lymphocytes % (Manual) Monocytes % (Manual) Nucleated RBC % Platelet Estimate Polychromasia Hypochromasia (manual) Anisocytosis (manual) Macrocytosis (manual) Puncture Site pCO2 pO2 HCO3 ABG pH ABG Total CO2 ABG O2 Saturation ABG Base Excess ABG Hemoglobin ABG Carboxyhemoglobin POC ABG HHb (Measured) ABG Methemoglobin Víctor Test ABG Potassium A-a O2 Difference Respiratory Index Hgb O2 Saturation Glucose Lactate Vent Mode Mechanical Rate FiO2 Tidal Volume PEEP Crit Value Called To Crit Value Called By Crit Value Read Back Blood Gas Notified Time Sodium 147 Potassium 6.6 H* Chloride 120 H Carbon Dioxide < 5 L* Anion Gap 29 H BUN 111 H* Creatinine 3.6 H Est GFR ( Amer) 21 Est GFR (Non-Af Amer) 17 POC Glucose (mg/dL) Random Glucose 136 H Calcium 7.7 L Phosphorus 12.4 H Magnesium 2.1 Total Bilirubin 24.4 H AST 4186 H ALT 528 H D Alkaline Phosphatase 902 H D Total Protein 5.3 L Albumin 2.4 L Globulin 3.0 Albumin/Globulin Ratio 0.8 L Arterial Blood Potassium Blood Type Antibody Screen Attending/Attestation - Attestation I have personally seen and examined this patient.: Yes I have fully participated in the care of the patient.: Yes I have reviewed all pertinent clinical information: Yes Notes (Text): 06/26/18 08:21 I discussed with the family regarding the options. Overall with the poor prognosis. If the family decided for full code will consider the transfer to ICU, discussed the night team
[2018-06-25 18:38] LABS: MEAN CELL VOLUME 103.7 fL (80.0-94.0); MEAN CORPUSCULAR HEMOGLOBIN 34.9 pg (27.0-31.0); MEAN CORPUSCULAR HGB CONC 33.6 g/dL (33.0-37.0); MEAN PLATELET VOLUME 11.2 fL (7.2-11.7); RBC 1.42 Mil/uL (4.40-5.90); RED CELL DISTRIBUTION WIDTH 20.1 % (11.5-14.5)
[2018-06-25 19:07] LABS: EOS # 0.1 K/uL (0.0-0.7); LYMPH # 0.3 K/uL (1.0-4.3); MONO # 0.2 K/uL (0.0-0.8); NEUT # 8.5 K/uL (1.8-7.0)
[2018-06-25] MEDS ORDERED: Dextrose 50% SYRINGE Inj (50 ml) ONE (19:34)
[2018-06-25] MEDS ORDERED: Sodium Bicarbonate (8.4%) 50 Meq Syringe ONE (19:34)
--- NOTE | 2018-06-25 20:10 | PCM.ANES ---
Anesthesia Emergent Intubation - Diagnosis Working Diagnosis:: Respiratory failure, vfib arrest - Consult Reason for Consult:: Respiratory failure - Intubation Attempts Previous Number of Intubation Attempts:: 0 (Reportedly, previously DNR/DNI but recently changed status to FULL CODE) - Pre-Intubation Vital Signs FIO2: 100 Oxygen Delivery Method: Ambu-Bag Level Of Consciousness: Comatose/Unresponsive, Unable to follow directions - Airway Management Oropharyngeal Area Suctioned: No - Method of Intubation Intubation Method: Oral ETT ETT Size: 7.5 Lipline@: 22 Easy: Yes (Grade II View) Atramatic: Yes - Intubation Devices Gaurang Blade Size Used: 3 Gretchen Forcepts Used: No Emmett Scope Used: No Fiber Optic Scope: No - Placement Confirmation Breath Sounds Present & Equal Bilaterally: Yes Gurgling Sounds Not Audible at Epigastrum: Yes Positive EtCO2: Yes Recommendations: Ventilator
[2018-06-25] MEDS ORDERED: Phenylephrine 30 MG in Dextrose 5% In Water 250 ML IV PRN (20:59)
--- NOTE | 2018-06-25 21:26 | PCM.RRT ---
LIFE SKILLS SPECIALIST Nurses Assessment New IV Insertion Tolerance: Good - Ventilator Settings Mode: PRVC Ventilator Respiratory Rate Settin Ventilator Tidal Volume Settin PEEP/CPAP (cm H2O): 5 SAO2 %: 97 FIO2 (% Oxygen): 100 I.Reason for LIFE SKILLS SPECIALIST - A) Acute Change in Patient: (Select all that apply): Staff member or family is worried about patient - Neurological Status (Select all that apply): Lethargic. absent: Responsive, Oriented, Verbal - Head Head Exam: ATRAUMATIC, NORMOCEPHALIC - Respiratory Exam Respiratory Exam: Decreased Breath Sounds. absent: NORMAL BREATHING PATTERN Plan - Assessment of Findings&Treatment Plan LIFE SKILLS SPECIALIST was activated by nursing upon finding pt unresponsive and not breathing. Pt was seen at bedside, unresponsive. Code Blue was initiated. Chest compressions were performed, epinephrine and bicarb were administered as per Code documentation. Pt was found to have V. fib and shocks were administered. Pulse was found and pt had ROSC. Pt is to be transferred to ICU for further evaluation and treatment.
--- NOTE | 2018-06-25 22:13 | CP.PCM.CON ---
History of Present Illness - History of Present Illness History of Present Illness: Attending: Eitan Mccartney MD ID: Dr Rasmussen Pulmonology: Dr Escobar Cardiology: Dr Morgan Hem/Onc: Dr Bae Reason for Consult: Critical care Management Chief Complaint: s/p Code Blue The Patient was seen and examined in the ICU HPI: The Hx was obtained after review of the medical records , the Radiographics and laboratory reports. This is a 63 years old male with hx of Stage IV Lung cancer with liver and brain metastasis diagnosed 06/2017 s/p Radiotherapy and Chemotherapy. He was admitted to the [facility] on 06/11/18 with Altered Mental Status , Minimal response to verbal and painful stimuli, and SOB. He was being treated conservatively on the Medical Unit where the family had decided to make the patient a DNR/DNI. Today while the family was visiting a rapid response Team was activated because of Unresponsiveness. The family requested everything to be done and reversed the DNR/DNI. Code Blue was called where the patient was treated according to protocol. There was return of circulation and the patient was transferred to ICU. PMH: Anemia; Anxiety; arthritis; Gastritis; HTN; HLD; Stage IV Small Cell Lung Cancer with mets to the Liver and Brain Dx 06/2017 s/p Chemotherapy and Radiotherapy PSH: CABG SH: Former Alcohol abuser; Smoked 2ppd for 50years; No illegal substance use; Live with family FH: No known family hx Allergies: NKDA Medication: Revviewed Review of Systems - Review of Systems Systems not reviewed;Unavailable: Intubated Review of Systems: Review of systems is limited as the patient is post Code Blue and Intubated Past Patient History - Infectious Disease Hx of Infectious Diseases: None - Past Medical History & Family History Past Medical History?: Yes - Past Social History Smoking Status: Former Smoker Chewing Tobacco Use: No Cigar Use: No Alcohol: Other Drugs: Denies, Inhalants Home Situation {Lives}: With Family - CARDIAC Hx Hypercholesterolemia: Yes Hx Hypertension: Yes - PULMONARY Hx Respiratory Disorders: Yes Hx Lung Cancer: Yes - NEUROLOGICAL Hx Neurological Disorder: No Hx Paralysis: No - HEENT Hx HEENT Problems: No - RENAL Hx Chronic Kidney Disease: No - ENDOCRINE/METABOLIC Hx Endocrine Disorders: No - HEMATOLOGICAL/ONCOLOGICAL Hx Anemia: Yes - INTEGUMENTARY Hx Dermatological Problems: Yes - MUSCULOSKELETAL/RHEUMATOLOGICAL Hx Arthritis: Yes (HX OF B/L HIP PAIN L>R) - GASTROINTESTINAL Hx Gastritis: Yes - GENITOURINARY/GYNECOLOGICAL Hx Genitourinary Disorders: No - PSYCHIATRIC Hx Anxiety: Yes Hx Substance Use: No - SURGICAL HISTORY Hx Coronary Artery Bypass Graft: Yes - ANESTHESIA Hx Anesthesia: Yes Hx Anesthesia Reactions: No Hx Malignant Hyperthermia: No Meds Allergies/Adverse Reactions: Allergies Allergy/AdvReac Type Severity Reaction Status Date / Time No Known Allergies Allergy Verified 06/11/18 09:31 - Medications Medications: Current Medications Fentanyl (Duragesic) 1 patch TD Q72H [facility] Last Admin: 06/24/18 12:29 Dose: 1 patch Chromium/Copper/Manganese/Zinc 1 ml/ Multivitamins/Vitamin C 10 ml/ Amino Acids 1,011 mls @ 42 mls/hr IV .Q24H ONE Stop: 06/26/18 17:59 Last Admin: 06/25/18 17:55 Dose: 42 mls/hr Fat Emulsion Intravenous (Intralipid 20%) 500 mls @ 42 mls/hr IV MWF@1800 [facility] Stop: 06/28/18 05:55 Last Admin: 06/25/18 17:55 Dose: 42 mls/hr Dextrose/Sodium Chloride (Dextrose 5%/0.45% Ns 1000 Ml) 1,000 mls @ 70 mls/hr IV .[id number] [facility] Last Admin: 06/25/18 17:55 Dose: 70 mls/hr Phenylephrine HCl 30 mg/ (Dextrose) 253 mls @ 10.12 mls/hr IV .Q24H PRN; Protocol PRN Reason: TITRATE PER MD ORDER Physical Exam - Constitutional Additional comments: Intubated s/p Code Blue - Head Exam Head Exam: ATRAUMATIC, NORMAL INSPECTION, NORMOCEPHALIC - Eye Exam Additional comments: Pupils Fixed, recting sluggish to light - ENT Exam ENT Exam: Mucous Membranes Dry, Normal External Ear Exam - Neck Exam Neck exam: Positive for: Full Rom, Normal Inspection - Respiratory Exam Additional comments: Bilateral inspiratory and expiratory rales, no wheezes - Cardiovascular Exam Cardiovascular Exam: REGULAR RHYTHM, RRR, +S1, +S2 - GI/Abdominal Exam GI & Abdominal Exam: Hypoactive Bowel Sounds, Soft. absent: Mass, Organomegaly - Rectal Exam Rectal Exam: Deferred - Extremities Exam Extremities exam: Positive for: normal inspection. Negative for: joint swelling, pedal edema - Back Exam Back exam: NORMAL INSPECTION - Neurological Exam Additional comments: Unresponsive, intubated. No facial droop, Notor strength 0/5, flaccid. - Psychiatric Exam Additional comments: Unresponsive - Skin Skin Exam: Dry, Pallor, Urticaria Results - Vital Signs Recent Vital Signs: Last Vital Signs Temp 98.4 F 06/25/18 17:20 Pulse 94 H 06/25/18 20:31 Resp 19 06/25/18 20:31 BP 53/32 L 06/25/18 18:10 Pulse Ox 85 L 06/25/18 20:31 - Labs Result Diagrams: 06/25/18 18:28 06/25/18 14:39 Labs: Laboratory Results - last 24 hr 06/25/18 06/25/18 06/25/18 13:45 14:39 14:43 WBC 9.9 RBC 1.62 L Hgb 5.2 L* D Hct 16.6 L MCV 102.8 H D MCH 32.4 H MCHC 31.6 L RDW 20.0 H Plt Count 57 L D MPV 11.5 Neut % (Auto) 47.3 L Lymph % (Auto) 42.5 H [place] % (Auto) 9.1 Eos % (Auto) 0.7 Baso % (Auto) 0.4 Neut # (Auto) 4.7 Lymph # (Auto) 4.2 [place] # (Auto) 0.9 H Eos # (Auto) 0.1 Baso # (Auto) 0.0 Neutrophils % (Manual) 88 H Lymphocytes % (Manual) 8 L Monocytes % (Manual) 4 Nucleated RBC % 25 H Platelet Estimate Decreased L Polychromasia Slight Hypochromasia (manual) Slight Anisocytosis (manual) Slight Macrocytosis (manual) Slight Sodium 147 148 Potassium 5.7 H 5.8 H Chloride 124 H 125 H Carbon Dioxide 5 L* D 5 L* Anion Gap 23 H 24 H BUN 115 H* D 118 H* Creatinine 4.5 H 4.4 H Est GFR ( Amer) 16 16 Est GFR (Non-Af Amer) 13 14 POC Glucose (mg/dL) Random Glucose 86 84 Calcium 8.7 8.6 Phosphorus 8.2 H Magnesium 2.3 Total Bilirubin 24.2 H 25.2 H AST 458 H D 477 H ALT 184 H D 186 H Alkaline Phosphatase 1180 H 1197 H Total Protein 5.1 L 5.2 L Albumin 2.1 L D 2.2 L Globulin 3.0 3.0 Albumin/Globulin Ratio 0.7 L 0.7 L Blood Type Antibody Screen 06/25/18 06/25/18 06/25/18 18:28 18:28 19:45 WBC 9.0 RBC 1.42 L Hgb 5.0 L* Hct 14.8 L MCV 103.7 H MCH 34.9 H MCHC 33.6 RDW 20.1 H Plt Count 52 L MPV 11.2 Neut % (Auto) 94.0 H Lymph % (Auto) 3.0 L [place] % (Auto) 2.0 Eos % (Auto) 1.0 Baso % (Auto) 0.0 Neut # (Auto) 8.5 H Lymph # (Auto) 0.3 L [place] # (Auto) 0.2 Eos # (Auto) 0.1 Baso # (Auto) 0.0 Neutrophils % (Manual) Lymphocytes % (Manual) Monocytes % (Manual) Nucleated RBC % Platelet Estimate Polychromasia Hypochromasia (manual) Anisocytosis (manual) Macrocytosis (manual) Sodium Potassium Chloride Carbon Dioxide Anion Gap BUN Creatinine Est GFR ( Amer) Est GFR (Non-Af Amer) POC Glucose (mg/dL) 57 L Random Glucose Calcium Phosphorus Magnesium Total Bilirubin AST ALT Alkaline Phosphatase Total Protein Albumin Globulin Albumin/Globulin Ratio Blood Type A POSITIVE Antibody Screen Negative - Imaging and Cardiology Chest x-ray Status: Image reviewed by me Additional comment: ET tube at [place] Opacity at upper right lung with diffuse infiltrated in the right lung field Central line from the right jugular with tip at SVC. Assessment & Plan - Assessment and Plan (Free Text) Assessment: #. Cardiac Arrest #. Stage IV Small Cell Lung Cancer with mets to liver and brain #. Anemia #. TASH #. Metabolic acidosis with Lactic Acidosis Plan: 63 years old male with hx of Stage IV Lung cancer with liver and brain metastasis diagnosed 06/2017 s/p Radiotherapy and Chemotherapy. He was admitted to the [facility] on 06/11/18 with Altered Mental Status , Minimal response to verbal and painful stimuli, and SOB. He was being treated conservatively on the Medical Unit where the family had decided to make the patient a DNR/DNI. To day he went into cardiac arrest and the family changed him back to Full Code. Code Yosvany was called where the patient was treated according to protocol. There was return of circulation and the patient was transferred to ICU. #. Respiratory Failure s/p Cardiac Arrest. The patient is intubated. Vent s ettings AC ; TV 500 with PEEP of 5 and Fio2 now of 22 - Phenylephrine for blood pressure - Follow ABG/ Chest X-Ray. #. Stage IV Small Cell Lung Cancer with mets to liver and brain - Palliative treatment #. Anemia - One unit of PRBC is being tranfused and Ht - Follow HB #. TASH - IV Fluid - Follow renal labs #. Metabolic acidosis with Lactic Acidosis - Sodium Bicarbonate IV Push and IV Drip #. Nutrition: Clinimix #.DVT Prophylaxis with SCD #. Code Status: Full Prognosis: Very Poor - Date & Time Date: 06/25/18 Time: 22:12
--- NOTE | 2018-06-26 00:17 | PCM.PROC ---
Procedures Attestation:: I certify that I have explained the specified Operation(s) or Procedure(s), risks, benefits and reasonable alternatives to the Patient and/or other person responsible. The opportunity was given to ask questions and all questions answered - Central Line Placement Right Femoral Triple Lumen Catheter Aseptic technique was employed throughout the procedure: Hand Hygiene done prior to procedure, Full sterile barriers (mask, hair cover, sterile gown, sterile gloves), Full body sterile drape, Chloraprep Antiseptic: 2 minute prep for Femoral CVP Time Out Performed: Yes Pt. Placed on Pulse Ox Monitor: Yes Central Line Prep: Chlorhexidine-Alcohol Combination Ultrasound Used for Placement: Yes Central Line Lumen Inserted: triple Central Line Length: 20 cm
--- NOTE | 2018-06-26 00:20 | PCM.PROC ---
Procedures Attestation:: I certify that I have explained the specified Operation(s) or Procedure(s), risks, benefits and reasonable alternatives to the Patient and/or other person responsible. The opportunity was given to ask questions and all questions answered - Central Line Placement Right Internal Jugular Triple Lumen Catheter Aseptic technique was employed throughout the procedure: Hand Hygiene done prior to procedure, Full sterile barriers (mask, hair cover, sterile gown, sterile gloves), Full body sterile drape, Chloraprep Antiseptic: 30 second prep for IJ or SC sites CVP Time Out Performed: Yes Pt. Placed on Pulse Ox Monitor: Yes Central Line Prep: Chlorhexidine-Alcohol Combination Ultrasound Used for Placement: Yes Central Line Lumen Inserted: triple Central Line Length: 16 cm Post Procedure: Sutured in Place, Good Blood Return, All Ports Aspirated, Flushed, Capped, Sterile Dressing Applied Secured by: Suture Post procedure dressing: Clear vapor permeable Post Procedure X-Ray: Yes Patient Tolerated Procedure: Well, No Complications Immediate Complications: None
--- NOTE | 2018-06-26 00:22 | PCM.PROC ---
Procedures Attestation:: I certify that I have explained the specified Operation(s) or Procedure(s), risks, benefits and reasonable alternatives to the Patient and/or other person responsible. The opportunity was given to ask questions and all questions answered - Central Line Placement Right Femoral Triple Lumen Catheter Aseptic technique was employed throughout the procedure: Hand Hygiene done prior to procedure, Full sterile barriers (mask, hair cover, sterile gown, sterile gloves), Full body sterile drape, Chloraprep Antiseptic: 2 minute prep for Femoral Pt. Placed on Pulse Ox Monitor: Yes Central Line Prep: Chlorhexidine-Alcohol Combination Ultrasound Used for Placement: Yes Central Line Lumen Inserted: triple Additional Comments: Unsuccessful
[2018-06-26 00:24] LABS: ARTERIAL BLOOD GAS HCO3 2.3 mmol/L (21-28); ARTERIAL BLOOD GAS O2 SAT 100.1 % (95-98); ARTERIAL BLOOD GAS PCO2 28 mm/Hg (35-45); ARTERIAL BLOOD GAS PH 6.83 (7.35-7.45); ARTERIAL BLOOD GAS PO2 111 mm/Hg (80-100); ARTERIAL BLOOD GAS TCO2 5.6 mmol/L (22-28)
[2018-06-26] MEDS ORDERED: Sodium Bicarbonate (8.4%) 50 Meq Syringe IVP STA ×2 (00:48→06:49)
[2018-06-26] MEDS ORDERED: [UNRECOGNIZED DRUG - OTHER] IV SCH (01:00)
[2018-06-26] MEDS: DEXTROSE 5% IV PRN ×2 (01:00→06:30)
[2018-06-26] MEDS: PHENYLEPHRINE IV PRN ×2 (01:00→06:30)
[2018-06-26] MEDS: WATER IV PRN ×2 (01:00→06:30)
[2018-06-26] MEDS ORDERED: SODIUM BICARBONATE IV SCH (01:00)
[2018-06-26] MEDS ORDERED: DEXTROSE IV SCH (01:00)
[2018-06-26] MEDS: Vasopressin 40 UNITS in Dextrose 5% In Water 40 ML IV SCH ×2 (02:09→09:56)
[2018-06-26 05:52] LABS: ARTERIAL BLOOD GAS HCO3 9.6 mmol/L (21-28); ARTERIAL BLOOD GAS HEMOGLOBIN 5.7 g/dL (11.7-17.4); ARTERIAL BLOOD GAS O2 SAT 101.8 % (95-98); ARTERIAL BLOOD GAS PCO2 24 mm/Hg (35-45); ARTERIAL BLOOD GAS PH 7.12 (7.35-7.45); ARTERIAL BLOOD GAS PO2 327 mm/Hg (80-100); ARTERIAL BLOOD GAS TCO2 8.5 mmol/L (22-28)
[2018-06-26 05:55] LABS: HEMOGLOBIN 12.3 g/dL (12.0-18.0); MEAN CORPUSCULAR HEMOGLOBIN 63.2 pg (27.0-31.0); MEAN CORPUSCULAR HGB CONC 65.2 g/dL (33.0-37.0); PLATELET COUNT 44 K/uL (130-400); RBC 1.95 Mil/uL (4.40-5.90); RED CELL DISTRIBUTION WIDTH 22.6 % (11.5-14.5); WHITE BLOOD COUNT 11.7 K/uL (4.8-10.8)
[2018-06-26 06:44] LABS: BLOOD UREA NITROGEN 111 mg/dL (9-20)
[2018-06-26 06:45] LABS: ALB/GLOB RATIO 0.8 (1.0-2.1); ALBUMIN 2.4 g/dL (3.5-5.0); ALT/SGPT 528 U/L (21-72); CALCIUM 7.7 mg/dl (8.6-10.4); GFR NON-AFRICAN AMERICAN 17
[2018-06-26 06:51] LABS: AST/SGOT 4186 U/L (17-59)
[2018-06-26 08:16] VITALS: TEMP 100
[2018-06-26 09:58] VITALS: BP 107/63; PULSE 71; RESP 24; O2SAT 96
[2018-06-26 10:19] LABS: LYMPH # 0.9 K/uL (1.0-4.3); MONO # 0.2 K/uL (0.0-0.8)
--- NOTE | 2018-06-26 10:38 | RAD ---
Date of service: 06/25/2018 HISTORY: sp TLC placement COMPARISON: 06/21/2018 FINDINGS: LUNGS: Extensive right upper lobe opacity. New right basilar opacity. Suspect multi lobar pneumonia. PLEURA: No significant pleural effusion identified, no pneumothorax apparent. CARDIOVASCULAR: Normal heart size. CABG. In grossly appropriate position. Right IJ multi lumen central venous catheter noted. OSSEOUS STRUCTURES: No significant abnormalities. VISUALIZED UPPER ABDOMEN: Normal. OTHER FINDINGS: None. IMPRESSION: Increasing multi lobar right-sided infiltrate. No other significant interval change.
[2018-06-26 10:44] LABS: BANDS 3 % (0-2); LYMPHOCYTE 8 % (20-40); MONOCYTE 2 % (0-10); NEUTROPHIL 87 % (50-75); NUCLEATED RED BLOOD CELL 26 % (0-0); TOTAL CELLS COUNTED 100
--- NOTE | 2018-06-26 10:44 | RAD ---
Date of service: 06/26/2018 HISTORY: Follow pulmonary infiltrate/ intubated COMPARISON: 06/25/2018 FINDINGS: LUNGS: Minimal improvement in extent of right upper lobe and right basilar opacity when compared to earlier examination of 06/25/2018. No abnormal left-sided opacity. PLEURA: No significant pleural effusion identified, no pneumothorax apparent. CARDIOVASCULAR: Lines and tubes unchanged. CABG. Congestive change noted. OSSEOUS STRUCTURES: No significant abnormalities. VISUALIZED UPPER ABDOMEN: Normal. OTHER FINDINGS: None. IMPRESSION: Multi lobar right-sided infiltrate minimally improved. Congestive change. Lines and tubes unchanged.
[2018-06-26 10:45] LABS: ANISOCYTOSIS SLIGHT; PLATELET ESTIMATE DECREASED (NORMAL)
[2018-06-26 10:47] LABS: HYPOCHROMIC SLIGHT; POLYCHROMIC SLIGHT
--- NOTE | 2018-06-26 14:31 | CP.PCM.PRO ---
<PremaannalisaMiller deleon - Last Filed: 06/26/18 14:31> Pronouncement of Note - Clinical Findings Physical Exam: No Response Verbal/Painful Stimuli, Absent Heart & Breath Sounds, No Corneal Reflex, Pupils Fixed & Dilated, Absence of Vital Signs - Pronouncement Time Time of Pronouncement of : 14:02 - Notifications Pronouncement Notifications: Atending Notified Pear Picker Notified: Yes <Rishi Guardado - Last Filed: 06/26/18 17:08> Pronouncement of Note - [place] [id number] Attending/Attestation - Attestation I have personally seen and examined this patient.: Yes I have fully participated in the care of the patient.: Yes I have reviewed all pertinent clinical information: Yes
--- NOTE | 2018-06-26 16:59 | CP.PCM.PN ---
Subjective - Date & Time of Evaluation Date of Evaluation: 06/26/18 Time of Evaluation: 16:59 Objective - Vital Signs/Intake and Output Vital Signs (last 24 hours): Temp Pulse Resp BP Pulse Ox 100 F H 71 24 107/63 96 06/26/18 08:00 06/26/18 09:56 06/26/18 09:56 06/26/18 09:56 06/26/18 09:56 Intake and Output: 06/26/18 06/26/18 06:59 18:59 Intake Total 4080.6 1488.2 Output Total 30 0 Balance 4050.6 1488.2 - Medications Medications: Current Medications Fentanyl (Duragesic) 1 patch TD Q72H AWILDA Last Admin: 06/24/18 12:29 Dose: 1 patch Chromium/Copper/Manganese/Zinc 1 ml/ Multivitamins/Vitamin C 10 ml/ Amino Acids 1,011 mls @ 42 mls/hr IV .Q24H ONE Stop: 06/26/18 17:59 Last Admin: 06/25/18 17:55 Dose: 42 mls/hr Fat Emulsion Intravenous (Intralipid 20%) 500 mls @ 42 mls/hr IV MWF@1800 AWILDA Stop: 06/28/18 05:55 Last Admin: 06/25/18 17:55 Dose: 42 mls/hr Phenylephrine HCl 60 mg/ (Dextrose) 500 mls @ 10 mls/hr IV .Q24H PRN; Protocol PRN Reason: TITRATE PER MD ORDER Last Admin: 06/26/18 06:30 Dose: 150 mcg/min, 75 mls/hr Sodium Bicarbonate 150 ml/ (Dextrose/Sodium Chloride) 1,150 mls @ 50 mls/hr IV .Q23H AWILDA Last Admin: 06/26/18 02:10 Dose: 50 mls/hr Vasopressin 40 units/ Dextrose 42 mls @ 0.63 mls/hr IV .Q24H AWILDA; Protocol Last Admin: 06/26/18 09:56 Dose: 0.04 units/min, 2.52 mls/hr Multivitamins/Vitamin C 10 ml/Chromium/Copper/Manganese/Zinc 1 ml/ Amino Acids 1,011 mls @ 42 mls/hr IV .Q24H ONE Stop: 06/27/18 17:59 - Labs Labs: 06/26/18 05:48 06/26/18 06:03 PT 101.0 SECONDS (9.7-12.2) H 06/21/18 02:30 INR 9.2 06/21/18 02:30 APTT 35 SECONDS (21-34) H 06/21/18 02:30 Assessment and Plan (1) SOB (shortness of breath) Status: Acute (2) Small cell lung cancer Status: Acute (3) Hypertension Status: Acute (4) Metastatic cancer to liver Status: Acute (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
--- NOTE | 2018-06-26 17:10 | CP.PCM.PN ---
Subjective - Date & Time of Evaluation Date of Evaluation: 06/26/18 Time of Evaluation: 06:45 - Subjective Subjective: clinically same Objective - Vital Signs/Intake and Output Vital Signs (last 24 hours): Temp Pulse Resp BP Pulse Ox 100 F H 71 24 107/63 96 06/26/18 08:00 06/26/18 09:56 06/26/18 09:56 06/26/18 09:56 06/26/18 09:56 Intake and Output: 06/26/18 06/26/18 06:59 18:59 Intake Total 4080.6 1488.2 Output Total 30 0 Balance 4050.6 1488.2 - Medications Medications: Current Medications Fentanyl (Duragesic) 1 patch TD Q72H AWILDA Last Admin: 06/24/18 12:29 Dose: 1 patch Chromium/Copper/Manganese/Zinc 1 ml/ Multivitamins/Vitamin C 10 ml/ Amino Acids 1,011 mls @ 42 mls/hr IV .Q24H ONE Stop: 06/26/18 17:59 Last Admin: 06/25/18 17:55 Dose: 42 mls/hr Fat Emulsion Intravenous (Intralipid 20%) 500 mls @ 42 mls/hr IV MWF@1800 AWILDA Stop: 06/28/18 05:55 Last Admin: 06/25/18 17:55 Dose: 42 mls/hr Phenylephrine HCl 60 mg/ (Dextrose) 500 mls @ 10 mls/hr IV .Q24H PRN; Protocol PRN Reason: TITRATE PER MD ORDER Last Admin: 06/26/18 06:30 Dose: 150 mcg/min, 75 mls/hr Sodium Bicarbonate 150 ml/ (Dextrose/Sodium Chloride) 1,150 mls @ 50 mls/hr IV .Q23H AWILDA Last Admin: 06/26/18 02:10 Dose: 50 mls/hr Vasopressin 40 units/ Dextrose 42 mls @ 0.63 mls/hr IV .Q24H AWILDA; Protocol Last Admin: 06/26/18 09:56 Dose: 0.04 units/min, 2.52 mls/hr Multivitamins/Vitamin C 10 ml/Chromium/Copper/Manganese/Zinc 1 ml/ Amino Acids 1,011 mls @ 42 mls/hr IV .Q24H ONE Stop: 06/27/18 17:59 - Labs Labs: 06/26/18 05:48 06/26/18 06:03 PT 101.0 SECONDS (9.7-12.2) H 06/21/18 02:30 INR 9.2 06/21/18 02:30 APTT 35 SECONDS (21-34) H 06/21/18 02:30 - Constitutional Appears: Well - Head Exam Head Exam: ATRAUMATIC, NORMAL INSPECTION, NORMOCEPHALIC - Eye Exam Eye Exam: EOMI, Normal appearance, PERRL Pupil Exam: NORMAL ACCOMODATION, PERRL - ENT Exam ENT Exam: Mucous Membranes Moist, Normal Exam - Neck Exam Neck Exam: Full ROM, Normal Inspection. absent: Lymphadenopathy - Respiratory Exam Respiratory Exam: Decreased Breath Sounds - Cardiovascular Exam Cardiovascular Exam: REGULAR RHYTHM, +S1, +S2 - GI/Abdominal Exam GI & Abdominal Exam: Soft, Diminished Bowel Sounds - Rectal Exam Rectal Exam: Deferred
[2018-06-26] MEDS ORDERED: PPN #5 IV ONE (18:00)
--- NOTE | 2018-06-26 20:02 | CP.PCM.PN ---
Subjective - Date & Time of Evaluation Date of Evaluation: 06/25/18 Time of Evaluation: 22:00 - Subjective Subjective: Transferred to ICU code status changed to full code Objective - Vital Signs/Intake and Output Vital Signs (last 24 hours): Temp Pulse Resp BP Pulse Ox 100 F H 71 24 107/63 96 06/26/18 08:00 06/26/18 09:56 06/26/18 09:56 06/26/18 09:56 06/26/18 09:56 Intake and Output: 06/26/18 06/27/18 18:59 06:59 Intake Total 1488.2 Output Total 0 Balance 1488.2 - Labs Labs: 06/26/18 05:48 06/26/18 06:03 PT 101.0 SECONDS (9.7-12.2) H 06/21/18 02:30 INR 9.2 06/21/18 02:30 APTT 35 SECONDS (21-34) H 06/21/18 02:30 - Head Exam Head Exam: ATRAUMATIC - Eye Exam Eye Exam: Normal appearance - ENT Exam ENT Exam: Mucous Membranes Dry - Respiratory Exam Respiratory Exam: NORMAL BREATHING PATTERN - Cardiovascular Exam Cardiovascular Exam: +S1, +S2 - GI/Abdominal Exam GI & Abdominal Exam: Normal Bowel Sounds Assessment and Plan (1) Small cell lung cancer Assessment & Plan: stage IV brain, liver, bone mets supportive care not a chemotherapy candidate Status: Acute
--- NOTE | 2018-06-26 20:03 | CP.PCM.PN ---
Subjective - Date & Time of Evaluation Date of Evaluation: 06/26/18 Time of Evaluation: 12:00 - Subjective Subjective: Vented Objective - Vital Signs/Intake and Output Vital Signs (last 24 hours): Temp Pulse Resp BP Pulse Ox 100 F H 71 24 107/63 96 06/26/18 08:00 06/26/18 09:56 06/26/18 09:56 06/26/18 09:56 06/26/18 09:56 Intake and Output: 06/26/18 06/27/18 18:59 06:59 Intake Total 1488.2 Output Total 0 Balance 1488.2 - Labs Labs: 06/26/18 05:48 06/26/18 06:03 PT 101.0 SECONDS (9.7-12.2) H 06/21/18 02:30 INR 9.2 06/21/18 02:30 APTT 35 SECONDS (21-34) H 06/21/18 02:30 - Head Exam Head Exam: ATRAUMATIC - Eye Exam Eye Exam: Normal appearance - ENT Exam ENT Exam: Mucous Membranes Dry - Respiratory Exam Respiratory Exam: Decreased Breath Sounds - Cardiovascular Exam Cardiovascular Exam: +S1, +S2 - GI/Abdominal Exam GI & Abdominal Exam: Normal Bowel Sounds Assessment and Plan (1) Small cell lung cancer Assessment & Plan: stage IV brain, liver, bone mets supportive care not a chemotherapy candidate Status: Acute
== END 2018-06-26 14:02 | DRG 208 ==
LOC: C.ER 09:22 → EEVIPCON 13:00 → C.9E 13:00 → C.6T 14:14 → C.9I 06-21 02:47 → C.5S 06-23 06:54 → C.9I 06-25 20:00
PROVIDERS: ADMIT Internal Medicine Nephrology; ATTEND Internal Medicine Nephrology
PROC: 0BH17EZ Insertion of Endotracheal Airway into Trachea, Via Natural or Artificial Opening (ICD-10-PCS; principal; 2018-06-25)
PROC: 5A1945Z Respiratory Ventilation, 24-96 Consecutive Hours (ICD-10-PCS; 2018-06-25)
PROC: 02HV33Z Insertion of Infusion Device into Superior Vena Cava, Percutaneous Approach (ICD-10-PCS; 2018-06-25)
DX: C34.90 Malignant neoplasm of unspecified part of unspecified bronchus or lung (principal); J96.91 Respiratory failure, unspecified with hypoxia; J18.9 Pneumonia, unspecified organism; C78.7 Secondary malignant neoplasm of liver and intrahepatic bile duct; C79.31 Secondary malignant neoplasm of brain; C79.51 Secondary malignant neoplasm of bone; E22.2 Syndrome of inappropriate secretion of antidiuretic hormone; E87.2 Acidosis; I47.2 Ventricular tachycardia; N17.9 Acute kidney failure, unspecified; R57.9 Shock, unspecified; E78.5 Hyperlipidemia, unspecified; I10 Essential (primary) hypertension; I46.2 Cardiac arrest due to underlying cardiac condition; I49.01 Ventricular fibrillation; K21.9 Gastro-esophageal reflux disease without esophagitis; I25.10 Atherosclerotic heart disease of native coronary artery without angina pectoris; Z51.5 Encounter for palliative care; Z66 Do not resuscitate; Z87.891 Personal history of nicotine dependence; Z92.21 Personal history of antineoplastic chemotherapy; Z92.3 Personal history of irradiation; Z95.1 Presence of aortocoronary bypass graft